=== PATIENT | female | born 1940 | race Caucasian/White ===

== ENCOUNTER → 2020-04-23 | Outpatient (CLI) | payer MEDICARE | LOC: CARD 14:01 | PROVIDERS: ATTEND Internal Medicine | DX: I50.9 Heart failure, unspecified (principal); I05.8 Other rheumatic mitral valve diseases; R60.9 Edema, unspecified | CPT/HCPCS: 93306 ==

== ENCOUNTER 2020-04-26 13:56 | Outpatient (RCR) | payer MEDICARE | END 2020-04-30 13:00 | disposition home or self-care (01) | PROVIDERS: ATTEND Internal Medicine | DX: R26.81 Unsteadiness on feet (principal); Z87.820 Personal history of traumatic brain injury ==

== ENCOUNTER 2020-05-03 12:32 | Outpatient (RCR) | payer MEDICARE | END 2020-06-12 09:31 | disposition home or self-care (01) | PROVIDERS: ATTEND Internal Medicine | DX: R26.81 Unsteadiness on feet (principal); Z87.820 Personal history of traumatic brain injury ==

== ENCOUNTER → 2020-10-15 | Outpatient (CLI) | payer MEDICARE | LOC: RAD 10:00 | PROVIDERS: ATTEND Internal Medicine | DX: Z12.31 Encounter for screening mammogram for malignant neoplasm of breast (principal) | CPT/HCPCS: 77063; 77067 ==

== ENCOUNTER 2021-03-14 11:15 | Outpatient (RCR) | payer MEDICARE | END 2021-03-14 12:32 | disposition home or self-care (01) | PROVIDERS: ATTEND Internal Medicine | DX: I89.0 Lymphedema, not elsewhere classified (principal); W19.XXXS Unspecified fall, sequela ==

== ENCOUNTER 2021-09-02 05:35 | Outpatient (CLI) | payer MEDICARE ==
[~2021-09-02] VITALS: Ht 157 cm
[2021-09-03] MEDS ORDERED: GLIM1TAB4 PO (17:07)
[2021-09-03] MEDS ORDERED: OMEG-154 PO (17:07)
[2021-09-03] MEDS ORDERED: MECL-149 PO (17:07)
[2021-09-03] MEDS ORDERED: MEMA10TA57 PO (17:07)
[2021-09-03] MEDS ORDERED: METF500S5 PO (17:07)
[2021-09-03] MEDS ORDERED: LISI1TAB46 PO (17:07)
[2021-09-03] MEDS ORDERED: FLUT9.9S NS (17:07)
[2021-09-03] MEDS ORDERED: DIPH25CA48 PO (17:07)
[2021-09-03] MEDS ORDERED: ASPI-999 PO (17:07)
[2021-09-03] MEDS ORDERED: CALC-774 PO (17:07)
== END 2021-09-10 13:55 | disposition home or self-care (01) ==
LOC: PREOP 05:35
PROVIDERS: ATTEND Specialist
DX: Z01.818 Encounter for other preprocedural examination (principal); H25.12 Age-related nuclear cataract, left eye

== ENCOUNTER 2021-09-09 07:06 | Day surgery (SDC) | payer MEDICARE ==
[~2021-09-09] VITALS: Ht 156 cm; Wt 95.6 kg
[~2021-09-09 07:06] MED LIST: ASPI-999 PO; CALC-774 PO; DIPH25CA48 PO; FLUT9.9S NS; GLIM1TAB4 PO; LISI1TAB46 PO; MECL-149 PO; MEMA10TA57 PO; METF500S5 PO; OMEG-154 PO
--- NOTE | 2021-09-09 07:26 | Ophthalmologist Pre-Op Note ---
Pre-Operative Progress Note H&P Reviewed The H&P was reviewed, patient examined and no changes noted. Date H&P Reviewed: September 09, 2021 Time H&P Reviewed: 07:26 Pre-Op Dx Cataract, Left Eye WILD ARANGO MD September 09, 2021 07:26
[2021-09-09] MEDS ORDERED: MIDAZOLAM 2 MG/2 ML (VERSED) VIAL ONE (07:42)
[2021-09-09] MEDS ORDERED: TIMOLOL MALEATE 0.5% 5 ML (TIMOPTIC) BTL OU PRN (08:15)
[2021-09-09] MEDS ORDERED: POVIDONE (BETADINE) OPHTH SOLN 5% 30 ML OP ONE (08:15)
[2021-09-09] MEDS ORDERED: MOXIFLOXACIN OPHTH SOLN 5 MG/ML 0.3 ML SYRINGE OP ONE (08:15)
[2021-09-09] MEDS ORDERED: LIDOCAINE PF 1% 2 ML VIAL IR PRN (08:15)
[2021-09-09] MEDS: TETRACAINE 0.5% OPHTH SOLN 4 ML BTL (SINGLE DOSE ONLY) OU PRN ×4 (08:27→08:50)
[2021-09-09 08:31] VITALS: BP 185/98
[2021-09-09] MEDS: TROPICAMIDE 1% OPH SOLN (MYDRIACYL) 15 ML BTL OP SCH ×3 (08:36→08:51)
[2021-09-09] MEDS: PHENYLEPHRINE 10% OPHTH (NEO-SYN) 5 ML BTL OU SCH ×3 (08:36→08:51)
--- NOTE | 2021-09-09 09:24 | Ophthalmology Operative Report ---
Cataract removal/placement IOL PREOPERATIVE DIAGNOSIS: Cataract Left Eye POSTOPERATIVE DIAGNOSIS: Cataract Left Eye PROCEDURE: Cataract removal and placement of posterior chamber implant, left eye SURGEON: Roderick Arango ANESTHESIA: Topical with sedation COMPLICATIONS: None ESTIMATED BLOOD LOSS: Minimal DESCRIPTION OF PROCEDURE: After proper informed consent was obtained, the patient, a 81 female, was taken to the Operating Room and the left eye was anesthetized with tetracaine. The left eye was then prepped and draped in the usual manner. A wire lid speculum was placed. A paracentesis was made at the left hand position. Preservative free lidocaine was injected into the anterior chamber followed by viscoelastic. A clear corneal incision was made in the temporal position. A capsulorrhexis was preformed and the central nuclear and cortical material were removed. The posterior capsule was polished and an Pato 21.0 AU00T0 was placed into the capsular bag. The residual viscoelastic was aspirated and balanced saline solution was injected into the anterior chamber. Moxifloxacin was injected into the anterior chamber. The wound was checked and found to be water tight. The patient tolerated the procedure well without complications. RODERICK ARANGO MD September 09, 2021 09:24
[2021-09-09 09:29] VITALS: BP 182/94
--- NOTE | 2021-09-09 13:38 | Anesthesia-General Post-Op ---
MAC Patient Condition Mental Status/LOC: Same as Preop Cardiovascular: Satisfactory Nausea/Vomiting: Absent Respiratory: Satisfactory Pain: Controlled Complications: Absent Post Op Complications Complications None Follow Up Care/Instructions Patient Instructions None needed. Anesthesiology Discharge Order Discharge Order Patient is doing well, no complaints, stable vital signs, no apparent adverse anesthesia problems. No complications reported per nursing. OLEGARIO DELVALLE CRNA September 09, 2021 13:38
== END 2021-09-09 09:30 | disposition home or self-care (01) ==
LOC: SDC 07:06
PROVIDERS: ATTEND Specialist
DX: H25.9 Unspecified age-related cataract (principal); E11.36 Type 2 diabetes mellitus with diabetic cataract; Z87.891 Personal history of nicotine dependence; Z79.84 Long term (current) use of oral hypoglycemic drugs; Z79.82 Long term (current) use of aspirin
CPT/HCPCS: 66984; 82947; V2632

== ENCOUNTER 2021-09-13 06:54 | Day surgery (SDC) | payer MEDICARE ==
[~2021-09-13] VITALS: Ht 157 cm; Wt 95.6 kg
[2021-09-13] MEDS: TETRACAINE 0.5% OPHTH SOLN 4 ML BTL (SINGLE DOSE ONLY) OU PRN ×4 (06:59→07:16)
[2021-09-13] MEDS ORDERED: TIMOLOL MALEATE 0.5% 5 ML (TIMOPTIC) BTL OU PRN (07:00)
[2021-09-13] MEDS ORDERED: POVIDONE (BETADINE) OPHTH SOLN 5% 30 ML OP ONE (07:00)
[2021-09-13] MEDS ORDERED: MOXIFLOXACIN OPHTH SOLN 5 MG/ML 0.3 ML SYRINGE OP ONE (07:00)
[2021-09-13] MEDS ORDERED: LIDOCAINE PF 1% 2 ML VIAL IR PRN (07:00)
[2021-09-13] MEDS: TROPICAMIDE 1% OPH SOLN (MYDRIACYL) 15 ML BTL OP SCH ×3 (07:05→07:16)
[2021-09-13] MEDS: PHENYLEPHRINE 10% OPHTH (NEO-SYN) 5 ML BTL OU SCH ×3 (07:05→07:16)
[2021-09-13 07:07] VITALS: BP 185/86
[2021-09-13] MEDS ORDERED: MIDAZOLAM 2 MG/2 ML (VERSED) VIAL ONE (07:55)
--- NOTE | 2021-09-13 08:08 | Ophthalmologist Pre-Op Note ---
Pre-Operative Progress Note H&P Reviewed The H&P was reviewed, patient examined and no changes noted. Date H&P Reviewed: September 13, 2021 Time H&P Reviewed: 08:08 Pre-Op Dx Cataract, Right Eye WILD ARANGO MD September 13, 2021 08:08
--- NOTE | 2021-09-13 08:33 | Ophthalmology Operative Report ---
Cataract removal/placement IOL PREOPERATIVE DIAGNOSIS: Cataract Right Eye POSTOPERATIVE DIAGNOSIS: Cataract Right Eye PROCEDURE: Cataract removal and placement of posterior chamber implant, right eye SURGEON: Roderick Arango ANESTHESIA: Topical with sedation COMPLICATIONS: None ESTIMATED BLOOD LOSS: Minimal DESCRIPTION OF PROCEDURE: After proper informed consent was obtained, the patient, a 81 female, was taken to the Operating Room and the right eye was anesthetized with tetracaine. The right eye was then prepped and draped in the usual manner. A wire lid speculum was placed. A paracentesis was made at the left hand position. Preservative free lidocaine was injected into the anterior chamber followed by viscoelastic. A clear corneal incision was made in the temporal position. A capsulorrhexis was preformed and the central nuclear and cortical material were removed. The posterior capsule was polished and Pato 21.5 AU00T0 IOL was placed into the capsular bag. The residual viscoelastic was aspirated and balanced saline solution was injected into the anterior chamber. Moxifloxacin was injected into the anterior chamber. The wound was checked and found to be water tight. The patient tolerated the procedure well without complications. RODERICK ARANGO MD September 13, 2021 08:33
[2021-09-13 08:36] VITALS: BP 164/82
--- NOTE | 2021-09-13 13:46 | Anesthesia-General Post-Op ---
MAC Patient Condition Mental Status/LOC: Same as Preop Cardiovascular: Satisfactory Nausea/Vomiting: Absent Respiratory: Satisfactory Pain: Controlled Complications: Absent Post Op Complications Complications None Follow Up Care/Instructions Patient Instructions None needed. Anesthesiology Discharge Order Discharge Order Patient is doing well, no complaints, stable vital signs, no apparent adverse anesthesia problems. No complications reported per nursing. HARMAN FLORES CRNA September 13, 2021 13:46
== END 2021-09-13 08:38 | disposition home or self-care (01) ==
LOC: SDC 06:54
PROVIDERS: ATTEND Specialist
DX: E11.36 Type 2 diabetes mellitus with diabetic cataract (principal); H25.9 Unspecified age-related cataract; Z87.891 Personal history of nicotine dependence; E66.9 Obesity, unspecified; Z68.38 Body mass index [BMI] 38.0-38.9, adult; Z79.84 Long term (current) use of oral hypoglycemic drugs; Z79.82 Long term (current) use of aspirin
CPT/HCPCS: 66984; 82947; V2632

== ENCOUNTER → 2021-10-16 | Outpatient (CLI) | payer MEDICARE ==
--- NOTE | 2021-10-16 12:54 | Diagnostic Imaging Report ---
INDICATION: Routine screening. COMPARISON: 10/15/2020 and 10/13/2019. TECHNIQUE: 2D and 3D bilateral screening mammography was performed with CAD. FINDINGS: Both breasts are heterogeneously dense, limiting the sensitivity of mammography. There are benign calcifications scattered throughout both breasts. No dominant mass or malignant-appearing microcalcifications are identified. The axillae are unremarkable. IMPRESSION: No mammographic features suspicious for malignancy are identified. ACR BI-RADS Category 2: Benign findings. Result letter will be mailed to the patient. Note: At least 10% of breast cancer is not imaged by mammography. Dictated by: Dictated on workstation # [id number]
== END ==
LOC: RAD 11:30
PROVIDERS: ATTEND Internal Medicine
DX: Z12.31 Encounter for screening mammogram for malignant neoplasm of breast (principal)
CPT/HCPCS: 77063; 77067

== ENCOUNTER → 2021-11-19 | Outpatient (CLI) | payer MEDICARE ==
[~2021-11-19] MED LIST changes: +CATHETER FLUSH 10 ML SYR IV PRN; +HOLD METFORMIN - RECEIVED CONTRAST 20 ML VIAL IV SCH; +IOHEXOL 350 MG/ML 100 ML (OMNIPAQUE 350) VIAL IV ONE; +NS 100 ML (IVPB) BAG IV ONE
--- NOTE | 2021-11-19 12:21 | Diagnostic Imaging Report ---
PROCEDURE: CT abdomen and pelvis with contrast. TECHNIQUE: Multiple contiguous axial images were obtained through the abdomen and pelvis after administration of intravenous contrast. Auto Exposure Controls were utilized during the CT exam to meet ALARA standards for radiation dose reduction. All CT scans use one or more of the following dose optimizing techniques: Automated exposure control, MA and/or KvP adjustment based on patient size and exam type or iterative reconstruction. INDICATION: Abdominal pain, left lower quadrant pain, history of diverticulitis. COMPARISON: No priors. FINDINGS: Liver's density is consistent with fatty infiltration. The gallbladder is surgically absent. No pathological ductal dilatation. The pancreas is nonfocal and nonacute. Spleen and adrenals are unremarkable. There are extensive aortoiliac and mesenteric atherosclerotic vascular calcifications. No obstructing thrombus or aneurysm. There is liquid stool throughout the colon which was nondistended. This is presumed to reflect a hypermotile or diarrheal state. There is, however, no diverticulitis or focal colitis. The unobstructed small bowel appeared unremarkable. There are no findings of appendicitis. There is no pneumatosis. There is no free gas. The uterus and adnexa are unremarkable. The base of the bladder extends below the pelvic floor consistent with cystocele. No evidence for urinary tract obstruction or bladder wall thickening. There does appear to be a mild rectocele without obstruction. IMPRESSION: 1. Liquid stool in the colon; correlate for diarrheal state. No segmental large or small bowel wall thickening, and no diverticulitis. No obstruction or perforation. 2. Some pelvic floor incompetency with rectocele and cystocele without obstruction or perforation. 3. Nonaneurysmal atherosclerosis without findings of acute end organ ischemia. 4. Fatty liver with nonacute pancreas. No biliary dilatation. Dictated by: Dictated on workstation # [id number]
== END ==
LOC: RAD 10:14
PROVIDERS: ATTEND Internal Medicine
DX: K76.0 Fatty (change of) liver, not elsewhere classified (principal); N81.6 Rectocele; N81.10 Cystocele, unspecified
CPT/HCPCS: 74177

== ENCOUNTER 2021-11-25 18:58 | Observation (INO) | payer MEDICARE ==
[~2021-11-25] VITALS: Ht 157.5 cm; Wt 94.2 kg
[~2021-11-25 18:58] MED LIST changes: -CATHETER FLUSH 10 ML SYR IV PRN; -HOLD METFORMIN - RECEIVED CONTRAST 20 ML VIAL IV SCH; -IOHEXOL 350 MG/ML 100 ML (OMNIPAQUE 350) VIAL IV ONE; -NS 100 ML (IVPB) BAG IV ONE
[2021-11-25] MEDS ORDERED: ONDANSETRON 4 MG (ZOFRAN) ORAL DISSOLVE TAB PO PRN (19:15)
[2021-11-25] MEDS ORDERED: ANTACID SUSP 30 ML UDC (MYLANTA) PO PRN (19:15)
[2021-11-25] MEDS ORDERED: MELATONIN 3 MG TABLET PO PRN (19:15)
[2021-11-25] MEDS ORDERED: diphenhydrAMINE 25 MG TAB (BENADRYL) PO PRN (19:15)
[2021-11-25] MEDS ORDERED: LACTULOSE SYRUP 10GM/15ML (ENULOSE) 30ML UDC PO PRN (19:15)
[2021-11-25] MEDS ORDERED: CALCIUM CARBONATE 500 MG (TUMS) TAB.CHEW PO PRN (19:15)
[2021-11-25] MEDS ORDERED: diphenhydrAMINE 50 MG/ML INJ (BENADRYL) IVP PRN (19:15)
[2021-11-25] MEDS ORDERED: ONDANSETRON 4 MG/2 ML (SDV) Z0FRAN IV PRN (19:15)
[2021-11-25] MEDS ORDERED: polyethylene glycoL POWDER 17 GM (MIRALAX) PACK PO PRN (19:15)
[2021-11-25] MEDS ORDERED: MILK OF MAGNESIA 400 MG/5 ML 30 ML UDC PO PRN (19:15)
[2021-11-25] MEDS ORDERED: ACETAMINOPHEN 325 MG TABLET PO PRN (19:15)
[2021-11-25] MEDS ORDERED: BISACODYL 10 MG SUPP (DULCOLAX) PR PRN (19:15)
[2021-11-25 19:54] LABS: BASOPHILS # (AUTO) 0.1 10^3/uL (0.0-0.1); BASOPHILS % (AUTO) 1 % (0-10); EOSINOPHILS # (AUTO) 0.2 10^3/uL (0.0-0.3); EOSINOPHILS % (AUTO) 3 % (0-10); HEMATOCRIT 38 % (35-52); HEMOGLOBIN 12.8 g/dL (11.5-16.0); LYMPHOCYTES # (AUTO) 1.8 10^3/uL (1.0-4.0); LYMPHOCYTES % (AUTO) 25 % (12-44); MEAN CORPUSCULAR HEMOGLOBIN 27 pg (25-34); MEAN CORPUSCULAR HGB CONC 33 g/dL (32-36); MEAN CORPUSCULAR VOLUME 82 fL (80-99); MEAN PLATELET VOLUME 8.4 fL (9.0-12.2); MONOCYTES # (AUTO) 0.6 10^3/uL (0.0-1.0); MONOCYTES % (AUTO) 8 % (0-12); NEUTROPHILS # (AUTO) 4.5 10^3/uL (1.8-7.8); NEUTROPHILS % (AUTO) 63 % (42-75); PLATELET COUNT 264 10^3/uL (130-400); WHITE BLOOD COUNT 7.2 10^3/uL (4.3-11.0)
[2021-11-25 20:07] VITALS: BP 174/75
[2021-11-25 20:27] LABS: ALANINE AMINOTRANSFERASE 20 U/L (0-55); ALKALINE PHOSPHATASE 60 U/L (40-136); BILIRUBIN,TOTAL 0.2 MG/DL (0.1-1.0); BUN/CREATININE RATIO 28; CALCIUM 9.8 MG/DL (8.5-10.1); CARBON DIOXIDE 23 MMOL/L (21-32); CHLORIDE 99 MMOL/L (98-107); CREATININE SERUM 0.89 MG/DL (0.60-1.30); GFR ESTIMATED 66; GLUCOSE 183 MG/DL (70-105); POTASSIUM 4.6 MMOL/L (3.6-5.0); SODIUM 133 MMOL/L (135-145); TOTAL PROTEIN 6.4 GM/DL (6.4-8.2)
[2021-11-25] MEDS: SENNOSIDES 8.6 MG (SENOKOT) TAB PO SCH (20:40)
[2021-11-25] MEDS: DOCUSATE SODIUM 100 MG (COLACE) CAP PO SCH (20:40)
--- NOTE | 2021-11-25 21:34 | Diagnostic Imaging Report ---
INDICATION: Abdominal pain. CORRELATION: CT abdomen and pelvis 11/19/2021. FINDINGS: There is a dense calcified granuloma within the mid left lung. The lungs demonstrate no findings of pneumonia or of an effusion. There is no pneumothorax. Heart size normal. Pulmonary vascularity is normal. There are surgical clips within the right upper quadrant from cholecystectomy. A few air fluid levels on the upright view but no significant small bowel dilation. There appears to be moderate stool within the right colon. IMPRESSION: 1. No evidence of an acute cardiopulmonary process. 2. There is moderate stool within the right colon. There are few air-fluid levels on the upright view suggesting fluid-filled loops of small bowel. There is however no evidence of small bowel dilation to suggest obstruction. 3. No findings of free air. Dictated by: Dictated on workstation # [id number]
[2021-11-25 22:04] LABS: BILIRUBIN,URINE NEGATIVE (NEGATIVE); CLARITY,URINE CLEAR; COLOR,URINE YELLOW; GLUCOSE, URINE (UA) TRACE (NEGATIVE); KETONES,URINE NEGATIVE (NEGATIVE); LEUKOCYTE ESTERASE ,URINE TRACE (NEGATIVE); NITRITE,URINE NEGATIVE (NEGATIVE); PH,URINE 5.5 (5-9); PROTEIN,URINE NEGATIVE (NEGATIVE)
--- NOTE | 2021-11-25 22:09 | Diagnostic Imaging Report ---
PROCEDURE: CT head without contrast. TECHNIQUE: Multiple contiguous axial images were obtained through the brain without the use of intravenous contrast. Auto Exposure Controls were utilized during the CT exam to meet ALARA standards for radiation dose reduction. INDICATION: Weakness. COMPARISON: No comparison is available. FINDINGS: There is advanced global volume loss. There is bifrontal and anterior temporal encephalomalacia which suggests a sequela of a prior closed head injury. There are no findings of acute intracranial hemorrhage. There is no intracranial mass effect or shift. There is no hydrocephalus. There is no abnormal extra-axial fluid collection. The basilar cisterns appear patent. There is no territorial loss of wilcox-white differentiation to suggest acute ischemia. The mastoid air cells are clear. The paranasal sinuses are clear other than minimal fluid in the left sphenoid sinus. The orbital contents are unremarkable. There is no acute calvarial abnormality. IMPRESSION: 1. Advanced volume loss with bifrontal and anterior temporal encephalomalacia. This pattern suggests sequela of a prior closed head injury. 2. No CT findings of a new or acute intracranial abnormality. Dictated by: Dictated on workstation # [id number]
[2021-11-25 22:13] LABS: BACTERIA,URINE LARGE /HPF
[2021-11-25] MEDS: inSUlin ASPART (NovoLOG) 1 UNIT/0.01 ML (CHARGE PER UNIT) SC SCH (23:07)
[2021-11-25] MEDS: ENOXAPARIN 40 MG/0.4 ML (LOVENOX) SYR SC SCH (23:07)
[2021-11-26] VITALS (7 sets, daily range): BP systolic 134–145; BP diastolic 63–83
[2021-11-26] MEDS: inSUlin ASPART (NovoLOG) 1 UNIT/0.01 ML (CHARGE PER UNIT) SC SCH ×4 (06:32→20:34)
[2021-11-26 06:45] LABS: BASOPHILS # (AUTO) 0.1 10^3/uL (0.0-0.1); BASOPHILS % (AUTO) 1 % (0-10); EOSINOPHILS # (AUTO) 0.2 10^3/uL (0.0-0.3); EOSINOPHILS % (AUTO) 3 % (0-10); HEMATOCRIT 34 % (35-52); HEMOGLOBIN 11.3 g/dL (11.5-16.0); LYMPHOCYTES # (AUTO) 1.5 10^3/uL (1.0-4.0); LYMPHOCYTES % (AUTO) 26 % (12-44); MEAN CORPUSCULAR HEMOGLOBIN 27 pg (25-34); MEAN CORPUSCULAR HGB CONC 33 g/dL (32-36); MEAN CORPUSCULAR VOLUME 82 fL (80-99); MEAN PLATELET VOLUME 9.1 fL (9.0-12.2); MONOCYTES # (AUTO) 0.5 10^3/uL (0.0-1.0); MONOCYTES % (AUTO) 9 % (0-12); NEUTROPHILS # (AUTO) 3.4 10^3/uL (1.8-7.8); NEUTROPHILS % (AUTO) 60 % (42-75); PLATELET COUNT 258 10^3/uL (130-400); WHITE BLOOD COUNT 5.6 10^3/uL (4.3-11.0)
[2021-11-26 06:54] LABS: ALBUMIN 3.5 GM/DL (3.2-4.5)
[2021-11-26 06:55] LABS: POTASSIUM 4.3 MMOL/L (3.6-5.0)
[2021-11-26 06:56] LABS: CALCIUM 9.2 MG/DL (8.5-10.1)
[2021-11-26 06:57] LABS: TOTAL PROTEIN 5.7 GM/DL (6.4-8.2)
[2021-11-26 06:59] LABS: BILIRUBIN,TOTAL 0.2 MG/DL (0.1-1.0)
[2021-11-26 07:01] LABS: CREATININE SERUM 0.71 MG/DL (0.60-1.30)
[2021-11-26] MEDS: SENNOSIDES 8.6 MG (SENOKOT) TAB PO SCH ×2 (07:50→20:34)
[2021-11-26] MEDS: DOCUSATE SODIUM 100 MG (COLACE) CAP PO SCH ×2 (07:50→20:34)
--- NOTE | 2021-11-26 09:40 | Physical Therapy Evaluation ---
PT Evaluation-General Medical Diagnosis Admission Date Nov 25, 2021 at 18:58 Medical Diagnosis: Weakness, Diarrhea Onset Date: Nov 25, 2021 Therapy Diagnosis Therapy Diagnosis: Gait deficit Precautions Precautions/Isolations: Fall Prevention, Standard Precautions Weight Bear Status Right Lower Extremity: Right Full Weight Bearing Left Lower Extremity: Left Full Weight Bearing Referral Physician: Dr. Acosta Reason for Referral: Evaluation/Treatment, Strengthening Medical History Reviewed History: Yes Social History Home: Single Level Current Living Status: Spouse Entry Into Home: Stairs With Railing PT Steps Into Home: 3 Prior Prior Level of Function SCALE: Activities may be completed with or without assistive devices. 1-Rezvrgqsgz-rqgxhfy completes the activity by him/herself with no assistance from a helper. 5-Set-up or Clean-up Assistance-helper sets up or cleans up; patient completes activity. [place] assists only prior to or following the activity. 4-Supervision or Touching Assistance-helper provides verbal cues and/or touching/steadying and/or contact guard assistance as patient completes activity. Assistance may be provided throughout the activity or intermittently. 3-Partial/Moderate Assistance-helper does LESS THAN HALF the effort. [place] lifts, holds or supports trunk or limbs, but provides less than half the effort. 2-Substantial/Maximal Assistance-helper does MORE THAN HALF the effort. [place] lifts or holds trunk or limbs and provides more than half the effort. 1-Laxvcwvev-ijvetx does ALL the effort. Patient does none of the effort to complete the activity. Or, the assistance of 2 or more helpers is required for the patient to complete the activity. If activity was not attempted, code reason: 7-Patient Refused. 9-Not Applicable-not attempted and the patient did not perform the activity before the current illness, exacerbation or injury. 10-Not Attempted due to Environmental Limitations-(lack of equipment, weather restraints, etc.). 88-Not Attempted due to Medical Conditions or Safety Concerns. Bed Mobility: 6 Transfers (B,C,W/C): 6 Gait: 6 Stairs: 6 Indoor Mobility (Ambulation): Independent Stairs: Independent Prior Devices Use: Walker PT Evaluation-Current Subjective Patient lying supine in bed upon PT arrival, agreeable to treatment. Patient rates pain currently at 0/10 Objective Patient Orientation: Person, Place, Time, Situation Attachments: IV ROM/Strength ROM Lower Extremities WFLs bilaterally all planes Strength Lower Extremities 3+/5 bilaterally all planes Sensory Vision: Functional Hearing: Functional Sensation Right Lower Extremit: Intact Sensation Left Lower Extremity: Intact Transfers Roll Left to Right (QC): 3 Sit to Lying (QC): 3 Lying to Sitting/Side of Bed(Q: 3 Sit to Stand (QC): 3 Chair/Nza-es-Jbnny Xfer(QC): 3 Gait Does the Patient Walk?: Yes Mode of Locomotion: Walk Anticipated Mode of Locomotion: Walk Walk 10 feet (QC): 4 Walk 50 ft with 2 Turns(QC): 4 Distance: 80 Gait Assistive Device: FWW Balance Sitting Static: Normal Sitting Dynamic: Normal Standing Static: Fair Standing Dynamic: Fair Assessment/Needs Patient tolerated treatment well. Demonstrates min a for all bed mobility and transfers, CGA for gait. Patient ambulates 40 feet with FWW, with CGA and verbal cues for safety, progression, balance and conservation of energy. Patient ambulates with fair overall gait pattern however fatigues quickly and requests return to room. Patient in bed post treatment with all needs met, nursing notified, call light in hand and family in the room. Rehab Potential: Good PT Usp Goals Usp Goals PT Certified Marine Mechanic Goals Time Frame: Dec 06, 2021 Roll Left & Right (QC): 6 Sit to Lying (QC): 6 Lying-Sitting on Side/Bed(QC): 6 Sit to Stand (QC): 6 Chair/Kul-rh-Whnnq Xfer(QC): 6 Toilet Transfer (QC): 6 Does the Patient Walk: Yes Walk 10 feet (QC): 6 Walk 50ft with 2 Turns (QC): 6 Walk 150 ft (QC): 6 1 Step (curb) (QC): 4 4 Steps (QC): 4 12 Steps (QC): 4 PT Plan Problem List Problem List: Activity Tolerance, Functional Strength, Safety, Balance, Gait, Transfer, Bed Mobility, ROM Treatment/Plan Treatment Plan: Continue Plan of Care Treatment Plan: Bed Mobility, Education, Functional Activity Pat, Functional Strength, Group Therapy, Gait, Safety, Therapeutic Exercise, Transfers Treatment Duration: Dec 21, 2021 Frequency: 6 times per week Estimated Hrs Per Day: .25 hour per day Patient and/or Family Agrees t: Yes Safety Risks/Education Patient Education: Gait Training, Transfer Techniques Teaching Recipient: Patient, Family Teaching Methods: Demonstration, Discussion Response to Teaching: Verbalize Understanding, Return Demonstration Time/GCodes Time In: 905 Time Out: 930 Total Billed Treatment Time: 25 Total Billed Treatment Visit, mikayla ATKINSON JOHN A PT Nov 26, 2021 09:40
[2021-11-26] MEDS: MENTHOL/ZINC OXIDE (CALMOSEPTINE) 113 GM TUBE TOP SCH ×2 (10:14→20:37)
[2021-11-26] MEDS ORDERED: ASPI-1238 PO (10:34)
[2021-11-26] MEDS ORDERED: FLUT9.9S NSEACH (10:34)
[2021-11-26] MEDS ORDERED: METF-399 PO (10:34)
[2021-11-26] MEDS ORDERED: CALC600T80 PO (10:34)
[2021-11-26] MEDS ORDERED: FLUTICASONE NASAL SPRAY (FLONASE) 16 GM BTL NS PRN (11:15)
--- NOTE | 2021-11-26 11:32 | Occupational Therapy Eval ---
OT Evaluation-General/PLF Medical Diagnosis Admission Date Nov 25, 2021 at 18:58 Medical Diagnosis: Weakness, Diarrhea Onset Date: Nov 25, 2021 Therapy Diagnosis Therapy Diagnosis: reduced strength/endurance Precautions Precautions/Isolations: Fall Prevention, Standard Precautions Referral Physician: Dr. Acosta Referral Reason: Evaluation/Treatment Medical History Current History Per RN and patient, pt came in with weakness and diarrhea. Patient lives with spouse in a single story home. Per patient's daughter, her dad (pt's spouse) does a lot for the patient. Spouse assists with bathing, donning/doffing footwear, "sometimes" with threading feet into pants, and all IADLs except pt folds laundry. Pt uses a walker at baseline. Social History Home: Single Level Current Living Status: Spouse Entry Into Home: Stairs With Railing Steps Into Home: 3 ADL-Prior Level of Function SCALE: Activities may be completed with or without assistive devices. 1-Xzhjfxzjws-efobrdu completes the activity by him/herself with no assistance from a helper. 5-Set-up or Clean-up Assistance-helper sets up or cleans up; patient completes activity. Irene assists only prior to or following the activity. 4-Supervision or Touching Assistance-helper provides verbal cues and/or touching/steadying and/or contact guard assistance as patient completes activity. Assistance may be provided throughout the activity or intermittently. 3-Partial/Moderate Assistance-helper does LESS THAN HALF the effort. Irene lifts, holds or supports trunk or limbs, but provides less than half the effort. 2-Substantial/Maximal Assistance-helper does MORE THAN HALF the effort. Irene lifts or holds trunk or limbs and provides more than half the effort. 0-Hhtuvpoox-ekjyeo does ALL the effort. Patient does none of the effort to complete the activity. Or, the assistance of 2 or more helpers is required for the patient to complete the activity. If activity was not attempted, code reason: 7-Patient Refused. 9-Not Applicable-not attempted and the patient did not perform the activity before the current illness, exacerbation or injury. 10-Not Attempted due to Environmental Limitations-(lack of equipment, weather restraints, etc.). 88-Not Attempted due to Medical Conditions or Safety Concerns. Self Care: Needed Some Help Functional Cognition: Needed Some Help DME/Equipment: Bath Chair, Grab Bars, Shower Drive Self: No OT Current Status Subjective Pt denies pain, reports feeling a little better than when admitted. Appearance Pt returned to sitting in recliner, daughter present in room at therapy departure. Mental Status/Objective Patient Orientation: Person, Place, Situation Attachments: IV, Telemetry Current Glasses/Contacts: Yes Hearing Aids: No Dentures/Partials: No Hand Dominance: Right Upper Extremity ROM WFL Upper Extremity Strength RUE: grossly 3/5 LUE: grossly 3+/5 ADL-Treatment Eating (QC): 5 On/Off Footwear (QC): 1 (baseline) Toileting Hygiene (QC): 4 Pt sitting in recliner at OT arrival. Dependent to don bilateral socks, reports this is baseline. Sit<>stand: SBA. Upon standing, she reports need to have BM. She ambulated to/from bathroom with CGA and use of walker. No unsteadiness observed. She was able to lower/stand from toilet with use of grab bar and SBA- CGA. Veronica care completed in sitting with SBA, cues for thoroughness. She stood and performed clothing management with close supervision. Hand hygiene performed standing at sink with SBA. Pt does report fatigue following minimal activity. Returns to sitting in chair with SBA. Patient/family could benefit from short term OT to address AE, compensatory strategies, energy conservation, strengthening and overall endurance to improve performance/independence in adls and to reduce burden of care on family. Education OT Patient Education: Correct positioning, Energy conservation, Modified ADL techniques, Purpose of tx/functional activities, Safety issues Teaching Recipient: Patient, Family Teaching Methods: Demonstration, Discussion Response to Teaching: Verbalize Understanding, Return Demonstration, Reinforcement Needed OT Prison Goals Prison Goals Time Frame: Dec 06, 2021 Eating (QC): 5 Oral Hygiene (QC): 5 Toileting Hygiene (QC): 6 Shower/Bathe Self (QC): 4 Upper Body Dressing (QC): 5 Lower Body Dressing (QC): 3 1=Demonstrate adherence to instructed precautions during ADL tasks. 2=Patient will verbalize/demonstrate understanding of assistive devices/modifications for ADL. 3=Patient will improve strength/tolerance for activity to enable patient to perform ADL's. OT Education/Plan Problem List/Assessment Assessment: Decreased Activ Tolerance, Decreased UE Strength, Impaired Funct Balance, Impaired Self-Care Skills Discharge Recommendations Plan/Recommendations: Continue POC Therapy Discharge Recommendati: Post Acute OT (Home health pending progress) Treatment Plan/Plan of Care Treatment,Training & Education: Yes Patient would benefit from OT for education, treatment and training to promote independence in ADL's, mobility, safety and/or upper extremity function for ADL's. Plan of Care: ADL Retraining, Caregiver Training, Cognitive Retraining, Functional Mobility, Group Exercise/Act as Ind, UE Funct Exercise/Act Treatment Duration: Dec 06, 2021 Frequency: 3 times per week (3-5x/week) Estimated Hrs Per Day: .25 hour per day Agreement: Yes Rehab Potential: Good Time/GCodes Start Time: 11:07 Stop Time: 11:23 Total Time Billed (hr/min): 16 Billed Treatment Time 1 visit Dayna Leung OT Nov 26, 2021 11:32
--- NOTE | 2021-11-26 13:56 | History & Physical ---
CARMINA FRY 11/26/21 5406: History of Present Illness History of Present Illness Reason for visit/HPI Mohini Martinez is a 81y/o F w/ PMH of dementia, DM, HTN, HLD, and vertigo who is here for direct admission from clinic due to weakness. Pt reports that since November 18 she has been having LLQ abdominal pain. She states that she has also been having blood stools daily. Continuing to have abdominal pain which she rates as a 7/10. Describes the pain as sharp and intermittent. Has never had episodes like this in the past. States that she was given antibiotics for the abdominal pain and says that they did not help (she is unsure what they were). Denies any fevers or chills. Abdominal CT on 11/19 showed no diverticulosis. Has not slept well for the past 4 days and states that she has been a little weaker than normal. Date of Admission Nov 25, 2021 at 18:58 Date Seen by a Provider: Nov 26, 2021 Time Seen by a Provider: 09:39 I consulted on this patient on 11/26/21 13:50 Attending Physician Mayra Bowden DO Admitting Physician Admitting Physician: Mayra Bowden DO Attending Physician: Mayra Bowden DO Consult Allergies and Home Medications Allergies Coded Allergies: Penicillins (Unverified Allergy, Intermediate, Rash, 09/03/21) Sulfa (Sulfonamide Antibiotics) (Unverified Allergy, Intermediate, Rash, 09/03/21) Patient Home Medication List Home Medication List Reviewed: Yes Aspirin (Aspirin EC) 81 Mg Tablet.dr, 81 MG PO DAILY, (Reported) Entered as Reported by: SYLVIA PEREIRA on 11/26/21 1034 Last Action: Continued Calcium Carbonate (Calcium Carbonate) 600 Mg Calcium (1500 Mg) Tablet, 600 MG PO DAILY, (Reported) Entered as Reported by: SYLVIA PEREIRA on 11/26/21 1034 Last Action: Continued Diphenhydramine HCl (Diphenhydramine HCl) 25 Mg Capsule, 25 MG PO BID, (Reported) Entered as Reported by: ELIUD MADISON on 09/03/21 1707 Last Action: Converted Fluticasone Propionate (Flonase Allergy Relief) 50 Mcg/Actuation [place].susp, 1-2 SPRAY NSEACH DAILY PRN for CONGESTION, (Reported) Entered as Reported by: SYLVIA PEREIRA on 11/26/211033 Last Action: Converted Glimepiride (Glimepiride) 1 Mg Tablet, 1 MG PO BID, (Reported) Entered as Reported by: ELIUD MADISON on 09/03/211706 Last Action: Continued Lisinopril/Hydrochlorothiazide (Lisinopril-Hctz 20-12.5 mg Tab) 20 Mg-12.5 Mg Tablet, 1 EACH PO DAILY, (Reported) Entered as Reported by: ELIUD MADISON on 09/03/211706 Last Action: Held Meclizine HCl (Meclizine HCl) 25 Mg Tablet, 25 MG PO BID, (Reported) Entered as Reported by: ELIUD MADISON on 09/03/211706 Last Action: Continued Memantine HCl (Memantine HCl) 10 Mg Tablet, 10 MG PO BID, (Reported) Entered as Reported by: ELIUD MADISON on 09/03/211706 Last Action: Continued Metformin HCl (Metformin HCl) 1,000 Mg Tablet, 1,000 MG PO BID, (Reported) Entered as Reported by: SYLVIA PEREIRA on 11/26/211033 Last Action: Held [place]-3S/Dha/Epa/Fish Oil (Fish Oil [place]-3 Softgel) 980 Mg-253 Mg-647 Mg-1,400 Mg Capsule.dr, 1 EACH PO HS, (Reported) Entered as Reported by: ELIUD MADISON on 09/03/211706 Last Action: Converted Discontinued Medications Calcium Carbonate/Vitamin D3 (Calcium 600 + Vit D3 400 Tab) 600 Mg Calcium-10 Mcg (400 Unit) Tablet, 1 EACH PO DAILY, (Reported) Discontinued Reason: Prescription changed Entered as Reported by: ELIUD MADISON on 09/03/211706 Last Action: Reviewed Fluticasone Propionate (Flonase Allergy Relief) 50 Mcg/Actuation [place].susp, 1 SPRAY NS DAILY, (Reported) Discontinued Reason: Duplicate Order Entered as Reported by: ELIUD MADISON on 09/03/211706 Last Action: Discontinued Metformin HCl (Metformin HCl) 500 Mg/5 Ml Solution, 1,000 MG PO BID, (Reported) Discontinued Reason: Duplicate Order Entered as Reported by: ELIUD MADISON on 09/03/211706 Last Action: Discontinued Past Cgggwaf-Ccppva-Gbsxnw Hx Patient Social History Marrital Status: Employed/Student: retired Tobacco Use?: Yes Tobacco type used: Cigarettes Smoking Status: Former Smoker Substance use?: No Alcohol Use?: Yes Alcohol type: Beer Alcohol Frequency: Rarely Pt feels they are or have been: No Current Status status: No status: No Advance Directives: Yes Advance Directive Location: Home Communicates: Verbally Primary Language: Guatemalan Preferred Spoken Language: Guatemalan Is interpretation needed?: No Sensory deficits: Vision impairment Implanted or Applied Medical D: None Past Medical History Surgeries: Adenoidectomy, Gallbladder, Tonsillectomy High Cholesterol, Hypertension Traumatic Brain Injury (1963), Vertigo Review of Systems Constitutional: No chills, No fever EENTM: No blurred vision, No double vision, No eye pain Respiratory: No cough, No short of breath Cardiovascular: No chest pain, No palpitations Gastrointestinal: abdominal pain; No nausea, No vomiting; other (bloody stools) Genitourinary: No dysuria, No frequency Musculoskeletal: No back pain, No joint pain Psychiatric/Neurological: Denies Headache, Denies Numbness, Denies Paresthesia Physical Exam Vital Signs Vital Signs - First Documented 11/25/21 11/25/21 11/26/21 20:00 20:07 08:09 Temp 36.2 Pulse 95 Resp 20 B/P (MAP) 174/75 (108) Pulse Ox 98 O2 Delivery Room Air FiO2 21 Capillary Refill : Height, Weight, BMI Height: '" Weight: lbs. oz. kg; 38.29 BMI Method: General Appearance: No Apparent Distress, WD/WN HEENT: PERRL/EOMI; No Photophobia Neck: Non Tender, Supple Respiratory: Lungs Clear, Normal Breath Sounds, No Accessory Muscle Use Cardiovascular: Regular Rate, Rhythm, No Murmur, Normal Peripheral Pulses Gastrointestinal: Soft, Tenderness (LLQ) Extremity: Normal Capillary Refill, Calf Tenderness (right) Neurologic/Psychiatric: Alert; No Oriented x3 (not oriented to date) Skin: Normal Color, Warm/Dry Lymphatic: No Adenopathy Assessment/Plan Assessment and Plan Failure to thrive due to dementia -head CT done showed, according to radiology, advanced volume loss with bifrontal and anterior temporal encephalomalacia. This pattern suggests sequela of a prior closed head injury. No CT findings of a new or acute intracranial abnormality. -UA done, had large bacteria but was negative for ketones and nitrates. trace leukocyte esterase -PT evaluation ordered -dietitian consult per family request -TSH of 1.09, CRP of 1.64 -start home memantine -will continue to monitor for progress Abdominal pain -abdominal CT done on 11/19 showed, according to radiology, 1. Liquid stool in the colon; correlate for diarrheal state. No segmental large or small bowel wall thickening, and no diverticulitis. No obstruction or perforation. Some pelvic floor incompetency with rectocele and cystocele without obstruction or perforation. Nonaneurysmal atherosclerosis without findings of acute end organ ischemia. Fatty liver with nonacute pancreas. No biliary dilatation. -acute abdomen XR series showed, according to radiology, No evidence of an acute cardiopulmonary process. There is moderate stool within the right colon. There are few air-fluid levels on the upright view suggesting fluid-filled loops of small bowel. There is however no evidence of small bowel dilation to suggest obstruction. No findings of free air. -stool occult blood was positive -C.diff toxin and antigen negative -consult surgery (Dr. Parks) HTN -echocardiogram done today, awaiting final report -on lisinopril -consult to cardiology has been placed (Dr. Chavez) Diabetes mellitus type 2 -on SSI -start home glimepiride -diabetic diet Anemia -Hgb of 11.3 -iron studies ordered and results are pending. Vertigo -restart home meclizine DVT prophylaxis- lovenox Code status: DNR MAYRA BOWDEN DO 11/26/21 2100: Allergies and Home Medications Allergies Coded Allergies: Penicillins (Unverified Allergy, Intermediate, Rash, 09/03/21) Sulfa (Sulfonamide Antibiotics) (Unverified Allergy, Intermediate, Rash, 09/03/21) Patient Home Medication List Aspirin (Aspirin EC) 81 Mg Tablet., 81 MG PO DAILY, (Reported) Entered as Reported by: SYLVIA PEREIRA on 11/26/21 1034 Last Action: Continued Calcium Carbonate (Calcium Carbonate) 600 Mg Calcium (1500 Mg) Tablet, 600 MG PO DAILY, (Reported) Entered as Reported by: SYLVIA PEREIRA on 11/26/21 1034 Last Action: Continued Diphenhydramine HCl (Diphenhydramine HCl) 25 Mg Capsule, 25 MG PO BID, (Reported) Entered as Reported by: ELIUD MADISON on 09/03/211706 Last Action: Converted Fluticasone Propionate (Flonase Allergy Relief) 50 Mcg/Actuation [place].susp, 1-2 SPRAY NSEACH DAILY PRN for CONGESTION, (Reported) Entered as Reported by: SYLVIA PEREIRA on 11/26/211033 Last Action: Converted Glimepiride (Glimepiride) 1 Mg Tablet, 1 MG PO BID, (Reported) Entered as Reported by: ELIUD MADISON on 09/03/211706 Last Action: Continued Lisinopril/Hydrochlorothiazide (Lisinopril-Hctz 20-12.5 mg Tab) 20 Mg-12.5 Mg Tablet, 1 EACH PO DAILY, (Reported) Entered as Reported by: ELIUD MADISON on 09/03/211706 Last Action: Held Meclizine HCl (Meclizine HCl) 25 Mg Tablet, 25 MG PO BID, (Reported) Entered as Reported by: ELIUD MADISON on 09/03/211706 Last Action: Continued Memantine HCl (Memantine HCl) 10 Mg Tablet, 10 MG PO BID, (Reported) Entered as Reported by: ELIUD MADISON on 09/03/211706 Last Action: Continued Metformin HCl (Metformin HCl) 1,000 Mg Tablet, 1,000 MG PO BID, (Reported) Entered as Reported by: SYLVIA PEREIRA on 11/26/211033 Last Action: Held [place]-3S/Dha/Epa/Fish Oil (Fish Oil [place]-3 Softgel) 980 Mg-253 Mg-647 Mg-1,400 Mg Capsule.dr, 1 EACH PO HS, (Reported) Entered as Reported by: ELIUD MADISON on 09/03/211706 Last Action: Converted Discontinued Medications Calcium Carbonate/Vitamin D3 (Calcium 600 + Vit D3 400 Tab) 600 Mg Calcium-10 Mcg (400 Unit) Tablet, 1 EACH PO DAILY, (Reported) Discontinued Reason: Prescription changed Entered as Reported by: ELIUD MADISON on 09/03/211706 Last Action: Reviewed Fluticasone Propionate (Flonase Allergy Relief) 50 Mcg/Actuation [place].susp, 1 SPRAY NS DAILY, (Reported) Discontinued Reason: Duplicate Order Entered as Reported by: ELIUD MADISON on 09/03/211706 Last Action: Discontinued Metformin HCl (Metformin HCl) 500 Mg/5 Ml Solution, 1,000 MG PO BID, (Reported) Discontinued Reason: Duplicate Order Entered as Reported by: ELIUD MADISON on 09/03/211706 Last Action: Discontinued Assessment/Plan Assessment and Plan Problems: (1) Edema (2) Diabetes (3) Vascular dementia (4) Diarrhea (5) Weakness Admission Diagnosis Admission Status: Observation Supervisory-Addendum Brief Verification & Attestation Participated in pt care: history, MDM, physical Personally performed: exam, history, MDM, supervision of care Care discussed with: Medical Student Procedures: n/a Results interpretation: Verified all documentation Verification and Attestation of Medical Student E/M Service A medical student performed and documented this service in my presence. I reviewed and verified all information documented by the medical student and made modifications to such information, when appropriate. I personally performed the physical exam and medical decision making. Mayra Bowden, Nov 26, 2021,21:00 CARMINA FRY Nov 26, 2021 13:56 MAYRA BOWDEN DO Nov 26, 2021 21:00
--- NOTE | 2021-11-26 15:34 | Consultation-Cardiology ---
HPI-Cardiology Cardiology Consultation Date of Consultation 11/26/21 Date of Admission Time Seen by Provider: 15:27 Indication: Generalized weakness, pedal edema HPI 81-year-old lady with history of diabetes mellitus, hypertension hyperlipidemia in addition to dementia. Patient was admitted directly from Dr. Acosta's office due to increasing weakness and loss of energy. She denied any chest pain. She has been having increasing lower abdominal pain and diarrhea. Mainly left lower quadrant pain. Currently laying down comfortably in bed. No active complaint. She denied any chest pain or dyspnea Home Medications & Allergies Allergies: Coded Allergies: Penicillins (Unverified Allergy, Intermediate, Rash, 09/03/21) Sulfa (Sulfonamide Antibiotics) (Unverified Allergy, Intermediate, Rash, 09/03/21) Home Medication List Reviewed: Yes NNI-Htxgwn-Xjdsur Hx Patient Social History Marital Status: Employed/Student: retired Smoking Status: Former Smoker Have you traveled recently?: No Alcohol Use?: Yes Past Medical History Discussed below Family Medical History Family Medical Hx Noncontributory Review of Systems-General Review of Systems Constitutional: No chills, No fever; malaise, weakness EENTM: No blurred vision, No double vision, No eye pain Respiratory: No cough; dyspnea on exertion; No short of breath Cardiovascular: see HPI; No chest pain; edema; No palpitations Gastrointestinal: see HPI, abdominal pain; No nausea, No vomiting; other (bloody stools) Genitourinary: No dysuria, No frequency Musculoskeletal: see HPI; No back pain, No joint pain Skin: no symptoms reported, see HPI Psychiatric/Neurological: Denies Headache, Denies Numbness, Denies Paresthesia Reviewed Test Results Reviewed Test Results Lab Laboratory Tests Test 11/25/21 17:49 11/25/21 19:47 11/25/21 21:47 11/25/21 21:53 Range/Units Erythrocyte Sedimentation Rate 18 0-30 MM/HR White Blood Count 7.2 4.3-11.0 10^3/uL Red Blood Count 4.69 3.80-5.11 10^6/uL Hemoglobin 12.8 11.5-16.0 g/dL Hematocrit 38 35-52 % Mean Corpuscular Volume 82 80-99 fL Mean Corpuscular Hemoglobin 27 25-34 pg Mean Corpuscular Hemoglobin Concent 33 32-36 g/dL Red Cell Distribution Width 13.7 10.0-14.5 % Platelet Count 264 130-400 10^3/uL Mean Platelet Volume 8.4 L 9.0-12.2 fL Immature Granulocyte % (Auto) 0 % Neutrophils (%) (Auto) 63 42-75 % Lymphocytes (%) (Auto) 25 12-44 % Monocytes (%) (Auto) 8 0-12 % Eosinophils (%) (Auto) 3 0-10 % Basophils (%) (Auto) 1 0-10 % Neutrophils # (Auto) 4.5 1.8-7.8 10^3/uL Lymphocytes # (Auto) 1.8 1.0-4.0 10^3/uL Monocytes # (Auto) 0.6 0.0-1.0 10^3/uL Eosinophils # (Auto) 0.2 0.0-0.3 10^3/uL Basophils # (Auto) 0.1 0.0-0.1 10^3/uL Immature Granulocyte # (Auto) 0.0 0.0-0.1 10^3/uL D-Dimer 0.50 H 0.00-0.49 UG/ML Sodium Level 133 L 135-145 MMOL/L Potassium Level 4.6 3.6-5.0 MMOL/L Chloride Level 99 98-107 MMOL/L Carbon Dioxide Level 23 21-32 MMOL/L Anion Gap 11 5-14 MMOL/L Blood Urea Nitrogen 25 H 7-18 MG/DL Creatinine 0.89 0.60-1.30 MG/DL Estimat Glomerular Filtration Rate 66 BUN/Creatinine Ratio 28 Glucose Level 183 H 70-105 MG/DL Lactic Acid Level 1.13 0.50-2.00 MMOL/L Calcium Level 9.8 8.5-10.1 MG/DL Corrected Calcium 9.8 8.5-10.1 MG/DL Total Bilirubin 0.2 0.1-1.0 MG/DL Aspartate Amino Transf (AST/SGOT) 12 5-34 U/L Alanine Aminotransferase (ALT/SGPT) 20 0-55 U/L Alkaline Phosphatase 60 40-136 U/L Troponin I < 0.028 <0.028 NG/ML C-Reactive Protein High Sensitivity 1.64 H 0.00-0.50 MG/DL Total Protein 6.4 6.4-8.2 GM/DL Albumin 4.0 3.2-4.5 GM/DL Procalcitonin 0.04 <0.10 NG/ML Thyroid Stimulating Hormone (TSH) 1.09 0.35-4.94 UIU/ML Urine Color YELLOW Urine Clarity CLEAR Urine pH 5.5 5-9 Urine Specific [place] 1.015 L 1.016-1.022 Urine Protein NEGATIVE NEGATIVE Urine Glucose (UA) TRACE H NEGATIVE Urine Ketones NEGATIVE NEGATIVE Urine Nitrite NEGATIVE NEGATIVE Urine Bilirubin NEGATIVE NEGATIVE Urine Urobilinogen 0.2 < = 1.0 MG/DL Urine Leukocyte Esterase TRACE H NEGATIVE Urine RBC (Auto) NEGATIVE NEGATIVE Urine RBC NONE /HPF Urine WBC 5-10 H /HPF Urine Squamous Epithelial Cells 2-5 /HPF Urine Renal Epithelial Cells NONE /HPF Urine Crystals NONE /LPF Urine Bacteria LARGE H /HPF Urine Casts NONE /LPF Urine Mucus NEGATIVE /LPF Urine Culture Indicated YES Glucometer 278 H 70-110 MG/DL Test 11/25/21 22:08 11/26/21 05:19 11/26/21 05:44 11/26/21 08:30 Range/Units Glucometer 161 H 70-110 MG/DL White Blood Count 5.6 4.3-11.0 10^3/uL Red Blood Count 4.14 3.80-5.11 10^6/uL Hemoglobin 11.3 L 11.5-16.0 g/dL Hematocrit 34 L 35-52 % Mean Corpuscular Volume 82 80-99 fL Mean Corpuscular Hemoglobin 27 25-34 pg Mean Corpuscular Hemoglobin Concent 33 32-36 g/dL Red Cell Distribution Width 13.9 10.0-14.5 % Platelet Count 258 130-400 10^3/uL Mean Platelet Volume 9.1 9.0-12.2 fL Immature Granulocyte % (Auto) 1 % Neutrophils (%) (Auto) 60 42-75 % Lymphocytes (%) (Auto) 26 12-44 % Monocytes (%) (Auto) 9 0-12 % Eosinophils (%) (Auto) 3 0-10 % Basophils (%) (Auto) 1 0-10 % Neutrophils # (Auto) 3.4 1.8-7.8 10^3/uL Lymphocytes # (Auto) 1.5 1.0-4.0 10^3/uL Monocytes # (Auto) 0.5 0.0-1.0 10^3/uL Eosinophils # (Auto) 0.2 0.0-0.3 10^3/uL Basophils # (Auto) 0.1 0.0-0.1 10^3/uL Immature Granulocyte # (Auto) 0.0 0.0-0.1 10^3/uL Sodium Level 133 L 135-145 MMOL/L Potassium Level 4.3 3.6-5.0 MMOL/L Chloride Level 102 98-107 MMOL/L Carbon Dioxide Level 21 21-32 MMOL/L Anion Gap 10 5-14 MMOL/L Blood Urea Nitrogen 18 7-18 MG/DL Creatinine 0.71 0.60-1.30 MG/DL Estimat Glomerular Filtration Rate 86 BUN/Creatinine Ratio 25 Glucose Level 144 H 70-105 MG/DL Calcium Level 9.2 8.5-10.1 MG/DL Corrected Calcium 9.6 8.5-10.1 MG/DL Total Bilirubin 0.2 0.1-1.0 MG/DL Aspartate Amino Transf (AST/SGOT) 11 5-34 U/L Alanine Aminotransferase (ALT/SGPT) 17 0-55 U/L Alkaline Phosphatase 48 40-136 U/L Total Protein 5.7 L 6.4-8.2 GM/DL Albumin 3.5 3.2-4.5 GM/DL Stool Occult Blood Immunoassay POSITIVE H NEGATIVE Test 11/26/21 11:27 11/26/21 15:28 Range/Units Glucometer 197 H 237 H 70-110 MG/DL Physical Exam Physical Exam Vital Signs Vital Signs - First Documented 11/25/21 11/25/21 11/26/21 20:00 20:07 08:09 Temp 36.2 Pulse 95 Resp 20 B/P (MAP) 174/75 (108) Pulse Ox 98 O2 Delivery Room Air FiO2 21 Capillary Refill : Height, Weight, BMI Height: '" Weight: lbs. oz. kg; 38.29 BMI Method: General Appearance: No Apparent Distress, WD/WN Eyes: Bilateral Eye Normal Inspection, Bilateral Eye PERRL, Bilateral Eye EOMI HEENT: PERRL/EOMI; No Photophobia Neck: Non Tender, Supple Respiratory: Lungs Clear, Normal Breath Sounds, No Accessory Muscle Use Cardiovascular: Regular Rate, Rhythm, Normal Peripheral Pulses, Systolic Murmur Gastrointestinal: Soft, Tenderness (LLQ) Back: Normal Inspection, No CVA Tenderness, No Vertebral Tenderness Extremity: Normal Capillary Refill, Calf Tenderness (right) Neurologic/Psychiatric: Alert; No Oriented x3 (not oriented to date) Skin: Normal Color, Warm/Dry Lymphatic: No Adenopathy A/P-Cardiology Admission Diagnosis Generalized weakness Lower abdominal pain Peripheral edema Hypertension Assessment/Plan Generalized weakness and loss of energy. Lower abdominal pain and diarrhea, CT scan did not show any acute diverticulosis. Currently no active pain. Peripheral edema. 2D echo was done on November 26, 2021 showing ejection fraction 55%. Normal pulmonary artery pressure. No significant abnormality. Hypertension, restart home medication monitor blood pressure Diabetes mellitus, followed and managed by primary care physician MIRTA BOB MD Nov 26, 2021 15:34
[2021-11-26] MEDS ORDERED: RT-ALBUTEROL SULF 2.5 MG/3 ML PRE-MIX VIAL INH PRN (16:30)
--- NOTE | 2021-11-26 17:31 | Consultation - Surgery ---
DAVID DAVIS 11/26/21 1731: History of Present Illness History of Present Illness Patient Consulted On(jelena/time) 11/26/21 17:25 Reason for Visit: Generalized weakness, pedal edema History of Present Illness Pt is a 81 year old female with past medical history of dementia, diabetes me llitus, HTN, hyperlipidemia, and vertigo who was admitted on 11/[address] Acosta's clinic due to weakness on 11/25. Pt states that she has been experiencing LLQ abdominal pain since 11/18 and bloody stools daily since 11/15. Pt states that she has been having 10-12 bowel movements daily. Pt's abdominal pain is a sharp, with no radiation, and gets better with bowel movements. Per past notes,pt said she was given antibiotics for her symptoms but had no relief. Pt had a positive stool occult blood test on 11/26. Pt had an Abdominal CT on 11/19 that showed no diverticulosis. Pt also had an abdominal CT on 11/25 that showed no small bowel obstruction. Pt is sitting comfortably in chair and states that she currently has no abdominal pain. Pt notes that she experienced a recent fall, but the daughter could not confirm. Pt denies sweats, chills, chest pain, and shortness of breath. Allergies and Home Medications Allergies Coded Allergies: Penicillins (Unverified Allergy, Intermediate, Rash, 09/03/21) Sulfa (Sulfonamide Antibiotics) (Unverified Allergy, Intermediate, Rash, 09/03/21) Patient Home Medication List Aspirin (Aspirin EC) 81 Mg Tablet., 81 MG PO DAILY, (Reported) Entered as Reported by: SYLVIA PEREIRA on 11/26/21 1034 Last Action: Continued Calcium Carbonate (Calcium Carbonate) 600 Mg Calcium (1500 Mg) Tablet, 600 MG PO DAILY, (Reported) Entered as Reported by: SYLVIA PEREIRA on 11/26/21 1034 Last Action: Continued Diphenhydramine HCl (Diphenhydramine HCl) 25 Mg Capsule, 25 MG PO BID, (Reported) Entered as Reported by: ELIUD MADISON on 09/03/21 4355 Last Action: Converted Fluticasone Propionate (Flonase Allergy Relief) 50 Mcg/Actuation [place].susp, 1-2 SPRAY NSEACH DAILY PRN for CONGESTION, (Reported) Entered as Reported by: SYLVIA PEREIRA on 11/26/211033 Last Action: Converted Glimepiride (Glimepiride) 1 Mg Tablet, 1 MG PO BID, (Reported) Entered as Reported by: ELIUD MADISON on 09/03/211706 Last Action: Continued Lisinopril/Hydrochlorothiazide (Lisinopril-Hctz 20-12.5 mg Tab) 20 Mg-12.5 Mg Tablet, 1 EACH PO DAILY, (Reported) Entered as Reported by: ELIUD MADISON on 09/03/211706 Last Action: Held Meclizine HCl (Meclizine HCl) 25 Mg Tablet, 25 MG PO BID, (Reported) Entered as Reported by: ELIUD MADISON on 09/03/211706 Last Action: Continued Memantine HCl (Memantine HCl) 10 Mg Tablet, 10 MG PO BID, (Reported) Entered as Reported by: ELIUD MADISON on 09/03/211706 Last Action: Continued Metformin HCl (Metformin HCl) 1,000 Mg Tablet, 1,000 MG PO BID, (Reported) Entered as Reported by: SYLVIA PEREIRA on 11/26/211033 Last Action: Held [place]-3S/Dha/Epa/Fish Oil (Fish Oil [place]-3 Softgel) 980 Mg-253 Mg-647 Mg-1,400 Mg Capsule.dr, 1 EACH PO HS, (Reported) Entered as Reported by: ELIUD MADISON on 09/03/211706 Last Action: Converted Discontinued Medications Calcium Carbonate/Vitamin D3 (Calcium 600 + Vit D3 400 Tab) 600 Mg Calcium-10 Mcg (400 Unit) Tablet, 1 EACH PO DAILY, (Reported) Discontinued Reason: Prescription changed Entered as Reported by: ELIUD MADISON on 09/03/211706 Last Action: Reviewed Fluticasone Propionate (Flonase Allergy Relief) 50 Mcg/Actuation [place].susp, 1 SPRAY NS DAILY, (Reported) Discontinued Reason: Duplicate Order Entered as Reported by: ELIUD MADISON on 09/03/211706 Last Action: Discontinued Metformin HCl (Metformin HCl) 500 Mg/5 Ml Solution, 1,000 MG PO BID, (Reported) Discontinued Reason: Duplicate Order Entered as Reported by: ELIUD MADISON on 09/03/211706 Last Action: Discontinued Past Puukqrl-Ijfgkm-Yaltvc Hx Patient Social History Smoking Status: Former Smoker Type Used: Cigarettes Alcohol Use?: Yes Have you traveled recently?: No Surgeries Surgeries: Adenoidectomy, Gallbladder, Tonsillectomy Cardiovascular Cardiac Disorders: High Cholesterol, Hypertension Neurological Neurological Disorders: Traumatic Brain Injury (1964), Vertigo Review of Systems-General Constitutional: No chills, No diaphoresis; weakness EENTM: No blurred vision, No double vision Respiratory: No cough, No dyspnea on exertion Cardiovascular: No chest pain; edema (b/l LE); No palpitations Gastrointestinal: LUQ, abdominal pain (LUQ pain, sharp pain), diarrhea (10-12 stools daily since the ) Genitourinary: No dysuria, No hematuria Musculoskeletal: No gout, No neck pain Skin: No change in color, No change in hair/nails Psychiatric/Neurological: Denies Anxiety, Denies Depressed Physical Exam-General Problems Physical Exam Vital Signs Vital Signs - First Documented 11/25/21 11/25/21 11/26/21 20:00 20:07 08:09 Temp 36.2 Pulse 95 Resp 20 B/P (MAP) 174/75 (108) Pulse Ox 98 O2 Delivery Room Air FiO2 21 Capillary Refill : General Appearance: no apparent distress Gastrointestinal: soft, tenderness (sharp LUQ abd pain) Extremities: swelling (b/l LE) Data Review Labs Laboratory Tests 11/25/21 17:49: Erythrocyte Sedimentation Rate 18 11/25/21 19:47: White Blood Count 7.2, Red Blood Count 4.69, Hemoglobin 12.8, Hematocrit 38, Mean Corpuscular Volume 82, Mean Corpuscular Hemoglobin 27, Mean Corpuscular Hemoglobin Concent 33, Red Cell Distribution Width 13.7, Platelet Count 264, Mean Platelet Volume 8.4L, Immature Granulocyte % (Auto) 0, Neutrophils (%) (Auto) 63, Lymphocytes (%) (Auto) 25, Monocytes (%) (Auto) 8, Eosinophils (%) (Auto) 3, Basophils (%) (Auto) 1, Neutrophils # (Auto) 4.5, Lymphocytes # (Auto) 1.8, Monocytes # (Auto) 0.6, Eosinophils # (Auto) 0.2, Basophils # (Auto) 0.1, Immature Granulocyte # (Auto) 0.0, D-Dimer 0.50H, Sodium Level 133L, Potassium Level 4.6, Chloride Level 99, Carbon Dioxide Level 23, Anion Gap 11, Blood Urea Nitrogen 25H, Creatinine 0.89, Estimat Glomerular Filtration Rate 66, BUN/Creatinine Ratio 28, Glucose Level 183H, Lactic Acid Level 1.13, Calcium Level 9.8, Corrected Calcium 9.8, Total Bilirubin 0.2, Aspartate Amino Transf (AST/SGOT) 12, Alanine Aminotransferase (ALT/SGPT) 20, Alkaline Phosphatase 60, Troponin I < 0.028, C-Reactive Protein High Sensitivity 1.64H, Total Protein 6.4, Albumin 4.0, Procalcitonin 0.04, Thyroid Stimulating Hormone (TSH) 1.09 11/25/21 21:47: Urine Color YELLOW, Urine Clarity CLEAR, Urine pH 5.5, Urine Specific [place] 1.015L, Urine Protein NEGATIVE, Urine Glucose (UA) TRACEH, Urine Ketones NEGATIVE, Urine Nitrite NEGATIVE, Urine Bilirubin NEGATIVE, Urine Urobilinogen 0.2, Urine Leukocyte Esterase TRACEH, Urine RBC (Auto) NEGATIVE, Urine RBC NONE, Urine WBC 5-10H, Urine Squamous Epithelial Cells 2-5, Urine Renal Epithelial Cells NONE, Urine Crystals NONE, Urine Bacteria LARGEH, Urine Casts NONE, Urine Mucus NEGATIVE, Urine Culture Indicated YES 11/25/21 21:53: Glucometer 278H 11/25/21 22:08: 11/26/21 05:19: Glucometer 161H 11/26/21 05:44: White Blood Count 5.6, Red Blood Count 4.14, Hemoglobin 11.3L, Hematocrit 34L, Mean Corpuscular Volume 82, Mean Corpuscular Hemoglobin 27, Mean Corpuscular Hemoglobin Concent 33, Red Cell Distribution Width 13.9, Platelet Count 258, Mean Platelet Volume 9.1, Immature Granulocyte % (Auto) 1, Neutrophils (%) (Auto) 60, Lymphocytes (%) (Auto) 26, Monocytes (%) (Auto) 9, Eosinophils (%) (Auto) 3, Basophils (%) (Auto) 1, Neutrophils # (Auto) 3.4, Lymphocytes # (Auto) 1.5, Monocytes # (Auto) 0.5, Eosinophils # (Auto) 0.2, Basophils # (Auto) 0.1, Immature Granulocyte # (Auto) 0.0, Sodium Level 133L, Potassium Level 4.3, Chloride Level 102, Carbon Dioxide Level 21, Anion Gap 10, Blood Urea Nitrogen 18, Creatinine 0.71, Estimat Glomerular Filtration Rate 86, BUN/Creatinine Ratio 25, Glucose Level 144H, Calcium Level 9.2, Corrected Calcium 9.6, Total Bilirubin 0.2, Aspartate Amino Transf (AST/SGOT) 11, Alanine Aminotransferase (ALT/SGPT) 17, Alkaline Phosphatase 48, Total Protein 5.7L, Albumin 3.5 11/26/21 08:30: Stool Occult Blood Immunoassay POSITIVEH 11/26/21 11:27: Glucometer 197H 11/26/21 15:28: Glucometer 237H Microbiology 11/26/21 C. difficile GDH Antigen & Toxins - Final, Resulted 11/26/21 Stool Culture, Resulted Pending 11/25/21 Urine Culture - Final, Complete NO GROWTH Assessment/Plan Assessment/Plan Assessment/Plan Diarrhea - hemaoccult positive Weakness secondary to GI bleeding Follow up hemoglobin Outpatient colonoscopy C diff negative, culture pending KEERTHI ESPINOZA DO 11/26/212022: History of Present Illness History of Present Illness Date Seen by Provider: Nov 26, 2021 Time Seen by Provider: 16:00 History of Present Illness Consult requested by Dr. Acosta for occult positive stools. Patient is a 81-year-old female with recent onset of diarrhea and episode of syncope. Patient has been feeling weak and was seen in Dr. Acosta clinic yesterday and sent to hospital for further evaluation. She states she is also having some left lower quadrant abdominal pain since 11/18/2021. She has had multiple liquid stools per day up to 12/day. She has sharp pain in the left lower quadrant which does not radiate anywhere. She states the bowel movements would make it better not sure if anything makes it worse. She had a CT scan on 726 which demonstrated diverticulosis and fluid filled bowel loops of colon. Patient had C. difficile checked which was negative and stool studies pending. Allergies and Home Medications Allergies Coded Allergies: Penicillins (Unverified Allergy, Intermediate, Rash, 09/03/21) Sulfa (Sulfonamide Antibiotics) (Unverified Allergy, Intermediate, Rash, 09/03/21) Patient Home Medication List Home Medication List Reviewed: Yes Aspirin (Aspirin EC) 81 Mg Tablet., 81 MG PO DAILY, (Reported) Entered as Reported by: SYLVIA PEREIRA on 11/26/211033 Last Action: Continued Calcium Carbonate (Calcium Carbonate) 600 Mg Calcium (1500 Mg) Tablet, 600 MG PO DAILY, (Reported) Entered as Reported by: SYLVIA PEREIRA on 11/26/211033 Last Action: Continued Diphenhydramine HCl (Diphenhydramine HCl) 25 Mg Capsule, 25 MG PO BID, (Reported) Entered as Reported by: ELIUD MADISON on 09/03/211706 Last Action: Converted Fluticasone Propionate (Flonase Allergy Relief) 50 Mcg/Actuation [place].susp, 1-2 SPRAY NSEACH DAILY PRN for CONGESTION, (Reported) Entered as Reported by: SYLVIA PEREIRA on 11/26/211033 Last Action: Converted Glimepiride (Glimepiride) 1 Mg Tablet, 1 MG PO BID, (Reported) Entered as Reported by: ELIUD MADISON on 09/03/211706 Last Action: Continued Lisinopril/Hydrochlorothiazide (Lisinopril-Hctz 20-12.5 mg Tab) 20 Mg-12.5 Mg Tablet, 1 EACH PO DAILY, (Reported) Entered as Reported by: ELIUD MADISON on 09/03/211706 Last Action: Held Meclizine HCl (Meclizine HCl) 25 Mg Tablet, 25 MG PO BID, (Reported) Entered as Reported by: ELIUD MADISON on 09/03/211706 Last Action: Continued Memantine HCl (Memantine HCl) 10 Mg Tablet, 10 MG PO BID, (Reported) Entered as Reported by: ELIUD MADISON on 09/03/211706 Last Action: Continued Metformin HCl (Metformin HCl) 1,000 Mg Tablet, 1,000 MG PO BID, (Reported) Entered as Reported by: SYLVIA PEREIRA on 11/26/211033 Last Action: Held [place]-3S/Dha/Epa/Fish Oil (Fish Oil [place]-3 Softgel) 980 Mg-253 Mg-647 Mg-1,400 Mg Capsule.dr, 1 EACH PO HS, (Reported) Entered as Reported by: ELIUD MADISON on 09/03/211706 Last Action: Converted Discontinued Medications Calcium Carbonate/Vitamin D3 (Calcium 600 + Vit D3 400 Tab) 600 Mg Calcium-10 Mcg (400 Unit) Tablet, 1 EACH PO DAILY, (Reported) Discontinued Reason: Prescription changed Entered as Reported by: ELIUD MADISON on 09/03/211706 Last Action: Reviewed Fluticasone Propionate (Flonase Allergy Relief) 50 Mcg/Actuation [place].susp, 1 SPRAY NS DAILY, (Reported) Discontinued Reason: Duplicate Order Entered as Reported by: ELIUD MADISON on 09/03/211706 Last Action: Discontinued Metformin HCl (Metformin HCl) 500 Mg/5 Ml Solution, 1,000 MG PO BID, (Reported) Discontinued Reason: Duplicate Order Entered as Reported by: ELIUD MADISON on 09/03/211706 Last Action: Discontinued Past Qqpkzjw-Ihshag-Qgreop Hx Reviewed Nursing Assessment Reviewed/Agree w Nursing PMH: Yes Family Medical History Significant Family History: No Pertinent Family Hx Review of Systems-General Constitutional: No chills, No diaphoresis; weakness EENTM: No blurred vision, No double vision Respiratory: No cough, No dyspnea on exertion Cardiovascular: No chest pain; edema (b/l LE); No palpitations Gastrointestinal: LLQ, abdominal pain (LLQ), diarrhea (10-12 stools daily since the ) Genitourinary: No dysuria, No hematuria Musculoskeletal: No gout, No neck pain Skin: No change in color, No change in hair/nails Psychiatric/Neurological: Denies Anxiety, Denies Depressed, Denies Emotional Problems All Other Systems Reviewed Negative Unless Noted: Yes (Negative excepted noted.) Physical Exam-General Problems Physical Exam General Appearance: no apparent distress, obese HEENT: PERRL/EOMI, normal ENT inspection Neck: non-tender, supple Respiratory: chest non-tender, no respiratory distress, no accessory muscle use Cardiovascular: regular rate, rhythm, no JVD Gastrointestinal: non tender, soft; No tenderness Rectal: deferred Back: normal inspection, no CVA tenderness Extremities: non-tender, swelling (b/l LE) Neurologic/Psychiatric: no motor/sensory deficits, alert, normal mood/affect, oriented x 3 Skin: normal color, warm/dry Lymphatic: no adenopathy Assessment/Plan Assessment/Plan Assessment/Plan Left lower quadrant abdominal pain Diarrhea Occult positive stools Stool studies pending C. difficile was negative continue to await for stool studies. Continue with IV fluids. Diet as tolerates. Patient will need colonoscopy on outpatient basis, Continue supportive measures. Patient agrees with plan along with family. Supervisory-Addendum Brief Verification & Attestation Participated in pt care: history, MDM, physical Personally performed: exam, history, MDM, supervision of care Care discussed with: Medical Student Procedures: n/a Results interpretation: Verified all documentation Verification and Attestation of Medical Student E/M Service A medical student performed and documented this service in my presence. I reviewed and verified all information documented by the medical student and made modifications to such information, when appropriate. I personally performed the physical exam and medical decision making. Keerthi Espinoza, Nov 26, 2021,20:25 DAVID ADVIS Nov 26, 2021 17:31 KEERTHI ESPINOZA DO Nov 26, 2021 20:23
[2021-11-26] MEDS: ENOXAPARIN 40 MG/0.4 ML (LOVENOX) SYR SC SCH (18:05)
[2021-11-26] MEDS: diphenhydrAMINE 25 MG TAB (BENADRYL) PO SCH (20:32)
[2021-11-26] MEDS: GLIMEPIRIDE 1 MG (AMARYL) TAB PO SCH (20:33)
[2021-11-26] MEDS: MECLIZINE 25 MG (ANTIVERT) TAB PO SCH (20:33)
[2021-11-26] MEDS: MEMANTINE 10 MG (NAMENDA) TABLET PO SCH (20:33)
[2021-11-26] MEDS ORDERED: OMEGA 3 (FISH OIL) 1000 MG CAP PO SCH (21:00)
[2021-11-27] VITALS: BP 148/83
[2021-11-27 04:13] VITALS: BP 150/82
[2021-11-27] MEDS: inSUlin ASPART (NovoLOG) 1 UNIT/0.01 ML (CHARGE PER UNIT) SC SCH ×2 (06:40→12:08)
[2021-11-27 06:45] LABS: BASOPHILS % (AUTO) 1 % (0-10); EOSINOPHILS # (AUTO) 0.2 10^3/uL (0.0-0.3); EOSINOPHILS % (AUTO) 4 % (0-10); HEMATOCRIT 34 % (35-52); HEMOGLOBIN 11.2 g/dL (11.5-16.0); LYMPHOCYTES # (AUTO) 1.4 10^3/uL (1.0-4.0); LYMPHOCYTES % (AUTO) 27 % (12-44); MEAN CORPUSCULAR HEMOGLOBIN 27 pg (25-34); MEAN CORPUSCULAR HGB CONC 33 g/dL (32-36); MEAN CORPUSCULAR VOLUME 81 fL (80-99); MEAN PLATELET VOLUME 8.5 fL (9.0-12.2); MONOCYTES # (AUTO) 0.4 10^3/uL (0.0-1.0); MONOCYTES % (AUTO) 8 % (0-12); NEUTROPHILS # (AUTO) 3.2 10^3/uL (1.8-7.8); NEUTROPHILS % (AUTO) 61 % (42-75); PLATELET COUNT 235 10^3/uL (130-400); WHITE BLOOD COUNT 5.2 10^3/uL (4.3-11.0)
[2021-11-27 07:12] LABS: ALBUMIN 3.6 GM/DL (3.2-4.5); POTASSIUM 4.3 MMOL/L (3.6-5.0)
[2021-11-27 07:13] LABS: CALCIUM 8.8 MG/DL (8.5-10.1)
[2021-11-27 07:14] LABS: TOTAL PROTEIN 5.8 GM/DL (6.4-8.2)
[2021-11-27 07:16] LABS: BILIRUBIN,TOTAL 0.3 MG/DL (0.1-1.0)
[2021-11-27 07:18] LABS: CREATININE SERUM 0.7 MG/DL (0.60-1.30)
--- NOTE | 2021-11-27 07:47 | Progress Note - Surgery ---
JOSELEDADAVID Champion 11/27/21 0747: Subjective Date Seen by a Provider: Nov 27, 2021 Time Seen by a Provider: 07:40 Subjective/Events-last exam Pt is sitting comfortably in room. Notes no abd pain or blood in stool today. Pt states she has had diarrhea today. Pt has been tolerating diet. Denies n/v Focused Exam Lactate Level 11/25/21 19:47: Lactic Acid Level 1.13 Objective Exam Vital Signs Date Time Temp Pulse Resp B/P (MAP) Pulse Ox O2 Delivery O2 Flow Rate FiO2 11/27/21 07:10 89 11/27/21 04:13 36.5 93 20 150/82 (104) 95 Room Air 11/27/21 01:00 104 11/27/21 00:00 36.4 78 20 148/83 (104) 97 Room Air 11/26/21 20:17 Room Air 11/26/21 19:30 36.1 98 20 134/80 (98) 99 Room Air 11/26/21 19:00 94 11/26/21 16:32 36.0 95 20 137/80 (99) 96 Room Air 11/26/21 12:14 99 11/26/21 12:07 97 11/26/21 11:31 35.8 85 20 139/63 (88) 99 Room Air 11/26/21 08:09 36.2 88 96 21 11/26/21 08:01 36.2 88 20 145/65 (91) 96 Room Air 11/26/21 08:00 Room Air I & O 11/27/21 07:00 Intake Total 1630 ml Output Total 900 ml Balance 730 ml Capillary Refill : General Appearance: No Apparent Distress, WD/WN HEENT: PERRL/EOMI, Normal ENT Inspection Neck: Non Tender, Supple Respiratory: Normal Breath Sounds, No Accessory Muscle Use Cardiovascular: Regular Rate, Rhythm, No JVD Gastrointestinal: non tender, soft; No tenderness Extremity: Normal Capillary Refill, Normal Inspection Neurologic/Psychiatric: Alert; No Depressed Affect Skin: Normal Color, Warm/Dry Lymphatic: No Adenopathy Results Lab Laboratory Tests 11/26/21 08:30: Stool Occult Blood Immunoassay POSITIVEH 11/26/21 11:27: Glucometer 197H 11/26/21 15:28: Glucometer 237H 11/26/21 20:15: Glucometer 209H 11/27/21 05:29: Glucometer 181H 11/27/21 06:28: White Blood Count 5.2, Red Blood Count 4.17, Hemoglobin 11.2L, Hematocrit 34L, Mean Corpuscular Volume 81, Mean Corpuscular Hemoglobin 27, Mean Corpuscular Hemoglobin Concent 33, Red Cell Distribution Width 13.6, Platelet Count 235, Mean Platelet Volume 8.5L, Immature Granulocyte % (Auto) 1, Neutrophils (%) (Auto) 61, Lymphocytes (%) (Auto) 27, Monocytes (%) (Auto) 8, Eosinophils (%) (Auto) 4, Basophils (%) (Auto) 1, Neutrophils # (Auto) 3.2, Lymphocytes # (Auto) 1.4, Monocytes # (Auto) 0.4, Eosinophils # (Auto) 0.2, Basophils # (Auto) 0.0, Immature Granulocyte # (Auto) 0.0, Sodium Level 128L, Potassium Level 4.3, Chloride Level 100, Carbon Dioxide Level 22, Anion Gap 6, Blood Urea Nitrogen 16, Creatinine 0.70, Estimat Glomerular Filtration Rate 88, BUN/Creatinine Ratio 23, Glucose Level 183H, Calcium Level 8.8, Corrected Calcium 9.1, Total Bilirubin 0.3, Aspartate Amino Transf (AST/SGOT) 13, Alanine Aminotransferase (ALT/SGPT) 19, Alkaline Phosphatase 49, Total Protein 5.8L, Albumin 3.6 Microbiology 11/26/21 C. difficile GDH Antigen & Toxins - Final, Resulted 11/26/21 Stool Culture, Resulted Pending 11/25/21 Urine Culture - Final, Complete NO GROWTH Assessment/Plan Assessment/Plan Assessment/Plan Left lower quadrant abdominal pain-improved Diarrhea Occult positive stools Pt tolerating diet, continue with current diet plan Continue supportive measures Stool studies still pending, continue to await stool studies result KEERTHI PARKS DO 11/27/21 0751: Subjective Subjective/Events-last exam No abdominal pain. Still with diarrhea multiple times. Tolerating diet. Denies n/v fever sweats chills shortness of breath or chest pain. Objective Exam General Appearance: No Apparent Distress, WD/WN HEENT: PERRL/EOMI, Normal ENT Inspection Neck: Non Tender, Supple Respiratory: Chest Non Tender, Normal Breath Sounds, No Accessory Muscle Use Cardiovascular: Regular Rate, Rhythm, No JVD Gastrointestinal: non tender, soft; No tenderness Extremity: Normal Capillary Refill, Normal Inspection Neurologic/Psychiatric: Alert, Oriented x3 Skin: Normal Color, Warm/Dry Lymphatic: No Adenopathy Assessment/Plan Assessment/Plan Assessment/Plan Left lower quadrant abdominal pain-improved Diarrhea Occult positive stools Pt tolerating diet, continue with current diet plan Continue supportive measures Stool studies still pending, continue to await stool studies result Endoscopy outpatient unless change and would do inpatient. Supervisory-Addendum Brief Verification & Attestation Participated in pt care: history, MDM, physical Personally performed: exam, history, MDM, supervision of care Care discussed with: Medical Student Procedures: n/a Results interpretation: Verified all documentation Verification and Attestation of Medical Student E/M Service A medical student performed and documented this service in my presence. I reviewed and verified all information documented by the medical student and made modifications to such information, when appropriate. I personally performed the physical exam and medical decision making. Keerthi Parks, Nov 27, 2021,07:51 DAVID DAVIS Nov 27, 2021 07:47 KEERTHI PARKS DO Nov 27, 2021 07:51
[2021-11-27 07:53] VITALS: BP 152/73
[2021-11-27] MEDS: MEMANTINE 10 MG (NAMENDA) TABLET PO SCH (08:37)
[2021-11-27] MEDS: MECLIZINE 25 MG (ANTIVERT) TAB PO SCH (08:37)
[2021-11-27] MEDS: SENNOSIDES 8.6 MG (SENOKOT) TAB PO SCH (08:37)
[2021-11-27] MEDS: diphenhydrAMINE 25 MG TAB (BENADRYL) PO SCH (08:37)
[2021-11-27] MEDS: GLIMEPIRIDE 1 MG (AMARYL) TAB PO SCH (08:37)
[2021-11-27] MEDS: MENTHOL/ZINC OXIDE (CALMOSEPTINE) 113 GM TUBE TOP SCH (08:38)
[2021-11-27] MEDS: DOCUSATE SODIUM 100 MG (COLACE) CAP PO SCH (08:38)
[2021-11-27] MEDS ORDERED: IRON SUCROSE 200 MG/10 ML (VENOFER) VIAL IV SCH (09:00)
[2021-11-27] MEDS ORDERED: CYANOCOBALAMIN INJ 1000 MCG/ML IM ONE (09:00)
[2021-11-27] MEDS ORDERED: LOPERAMIDE 2 MG (IMODIUM) TABLET PO PRN (09:00)
[2021-11-27] MEDS ORDERED: lisINopril 20 MG (PRINIVIL) TABLET PO SCH (09:00)
[2021-11-27] MEDS ORDERED: ASPIRIN E.C. 81 MG (ECOTRIN) TAB PO SCH (09:00)
[2021-11-27] MEDS ORDERED: CHOLESTYRAMINE 4 GM (QUESTRAN LITE, PREVALITE) PKT PO SCH (09:00)
[2021-11-27] MEDS ORDERED: SODIUM CHLORIDE 1 GM TABLET PO SCH (09:00)
[2021-11-27] MEDS ORDERED: CALCIUM CARBONATE 600 MG (CALCARB) TAB PO SCH (09:00)
[2021-11-27] MEDS ORDERED: LISI20TA26 PO (09:11)
[2021-11-27] MEDS ORDERED: LOPE2CAP PO (09:11)
[2021-11-27] MEDS ORDERED: CHOL4PAC3 PO (09:11)
[2021-11-27] MEDS ORDERED: NF-NACL1GT PO (09:11)
--- NOTE | 2021-11-27 09:13 | Discharge Summary ---
Diagnosis/Chief Complaint Date of Admission Nov 25, 2021 at 18:58 Date of Discharge Discharge Date: Nov 27, 2021 Discharge Diagnosis CC: weakness HPI: Mohini Martinez is a 81y/o F w/ PMH of dementia, DM, HTN, HLD, and vertigo who came here for direct admission from clinic due to weakness on 11/26. Pt reported that since November 18 she has been having LLQ abdominal pain. She states that she has also been having blood stools daily. Continued to have abdominal pain which she rated as a 7/10. Described the pain as sharp and intermittent. Has never had episodes like this in the past. Stated that she was given antibiotics for the abdominal pain and says that they did not help (she is unsure what they were). Denies any fevers or chills. Abdominal CT on 11/19 showed no diverticulosis. Has not slept well for the past 4 days and states that she has been a little weaker than normal. Today her appetite was good. Not having any headaches or dizziness. Still having frequent episodes of diarrhea, around 10 times a day. Had been a chronic issue but worsened upon admission. PMH: TBI (1963) HTN HLD Vertigo PSH: T/A Cholecystectomy All: Penicillins Sulfa Meds: Vit B12 1000mcg once, calmoseptine ointment BID, iron sucrose 200mg Q48 5 doses, lisinopril 20mg QD, benadryl 25mg BID, memantine 10mg BID, meclizine 25mg BID, glimepiride 1mg BID, calcium carbonate 600mg QD, aspirin 81 QD, insulin aspart- sliding scare, fish oil 1000 mg HS, lovenox 40mg QD SH: Lives w/ , retired, former smoker FH: No pertinent family history ROS: gen: no fevers, chills heent: no vision changes, eye pain cardiac: no CP, palpitations lungs: no SOB, cough GI: has diarrhea, no abdominal pain, N/V : no dysuria, hematuria MSK: no joint or muscle pain neuro: no numbness, tingling in extremities Exam: gen: age appearing female, well groomed heent: PERRL/EOMI cardiac: RRR, no murmur lungs: CTAB, normal rate GI: soft, not tender LE: mild pedal edema, normal pulses neuro: alert, normal speech Labs: Hgb: 12.8(8/1), 11.3(8/2), 11.2(8/3) Na+: 133(8/1), 133(8/2), 128(8/3) K+: 4.6(8/1), 4.3(8/2), 4.3(8/3) Cl-: 99(8/1), 102(8/2), 100(8/3) Stool occult blood: positive A&P Failure to thrive due to dementia -head CT done showed, according to radiology, advanced volume loss with bifrontal and anterior temporal encephalomalacia. This pattern suggests sequela of a prior closed head injury. No CT findings of a new or acute intracranial abnormality. -UA done, had large bacteria but was negative for ketones and nitrates. trace leukocyte esterase -PT evaluation ordered -dietitian consult per family request -TSH of 1.09, CRP of 1.64 -continue home memantine -PT done while here -will order outpt PT Abdominal pain -abdominal CT done on 11/19 showed, according to radiology, 1. Liquid stool in the colon; correlate for diarrheal state. No segmental large or small bowel wall thickening, and no diverticulitis. No obstruction or perforation. Some pelvic floor incompetency with rectocele and cystocele without obstruction or perfo ration. Nonaneurysmal atherosclerosis without findings of acute end organ ischemia. Fatty liver with nonacute pancreas. No biliary dilatation. -acute abdomen XR series showed, according to radiology, No evidence of an acute cardiopulmonary process. There is moderate stool within the right colon. There are few air-fluid levels on the upright view suggesting fluid-filled loops of small bowel. There is however no evidence of small bowel dilation to suggest obstruction. No findings of free air. -stool occult blood was positive -C.diff toxin and antigen negative, stool culture pending -consulted surgery (Dr. Parks) -surgery will follow up on colonoscopy as an outpt Edema -cardiology consult done by Dr. Chavez -echo done yesterday showed EF of 55% and pulmonary artery pressure of 35- 40mmHg HTN -stopping lisinopril/HCTZ and starting on lisinopril only on discharge -will continue to monitor as outpt Hyponatremia -decreased sodium of 128 today, likely due to her frequent diarrhea stools (c.diff toxin A/B and antigen negative) -starting her on imodium, questran, and salt tablets on D/C -suggested that she try not to drink excessive amounts of fluids -will be be checking electrolyte levels Thursday when she is seen in clinic Diabetes mellitus type 2 -on SSI while in hospital -continue home glimepiride -needs to continue diabetic diet at home Anemia -Hgb of 11.3 -iron studies done, iron was 46, all other levels of no concern -starting iron sucrose 200mg Q48H for five doses -will continue to monitor as outpt Vertigo -continue home meclizine -Will be discharging to home this afternoon, pt was instructed on how she needs to get labs Thursday at [facility] before being seen in clinic that afternoon Reason Hospital Visit Discharge Summary Discharge Physical Examination Allergies: Coded Allergies: Penicillins (Unverified Allergy, Intermediate, Rash, 09/03/21) Sulfa (Sulfonamide Antibiotics) (Unverified Allergy, Intermediate, Rash, 09/03/21) Vitals & I&Os Vital Signs Date Time Temp Pulse Resp B/P (MAP) Pulse Ox O2 Delivery O2 Flow Rate FiO2 11/27/21 13:35 11/27/21 12:14 95 11/27/21 11:42 36.4 18 96 Room Air 11/26/21 08:09 21 General Appearance: Alert, Oriented X3, Cooperative Respiratory: Clear to Auscultation Cardiovascular: Regular Rate Neuro: Normal Gait Hospital Course Was the Problem List Reviewed?: Yes see above Labs (last 24 hrs) Laboratory Tests 11/25/21 17:49: Erythrocyte Sedimentation Rate 18 11/25/21 19:47: White Blood Count 7.2, Red Blood Count 4.69, Hemoglobin 12.8, Hematocrit 38, Mean Corpuscular Volume 82, Mean Corpuscular Hemoglobin 27, Mean Corpuscular Hemoglobin Concent 33, Red Cell Distribution Width 13.7, Platelet Count 264, Mean Platelet Volume 8.4L, Immature Granulocyte % (Auto) 0, Neutrophils (%) (Auto) 63, Lymphocytes (%) (Auto) 25, Monocytes (%) (Auto) 8, Eosinophils (%) (Auto) 3, Basophils (%) (Auto) 1, Neutrophils # (Auto) 4.5, Lymphocytes # (Auto) 1.8, Monocytes # (Auto) 0.6, Eosinophils # (Auto) 0.2, Basophils # (Auto) 0.1, Immature Granulocyte # (Auto) 0.0, D-Dimer 0.50H, Sodium Level 133L, Potassium Level 4.6, Chloride Level 99, Carbon Dioxide Level 23, Anion Gap 11, Blood Urea Nitrogen 25H, Creatinine 0.89, Estimat Glomerular Filtration Rate 66, BUN/Creatinine Ratio 28, Glucose Level 183H, Lactic Acid Level 1.13, Calcium Level 9.8, Corrected Calcium 9.8, Total Bilirubin 0.2, Aspartate Amino Transf (AST/SGOT) 12, Alanine Aminotransferase (ALT/SGPT) 20, Alkaline Phosphatase 60, Troponin I < 0.028, C-Reactive Protein High Sensitivity 1.64H, Total Protein 6.4, Albumin 4.0, Procalcitonin 0.04, Thyroid Stimulating Hormone (TSH) 1.09 11/25/21 21:47: Urine Color YELLOW, Urine Clarity CLEAR, Urine pH 5.5, Urine Specific [place] 1.015L, Urine Protein NEGATIVE, Urine Glucose (UA) TRACEH, Urine Ketones NEGATIVE, Urine Nitrite NEGATIVE, Urine Bilirubin NEGATIVE, Urine Urobilinogen 0.2, Urine Leukocyte Esterase TRACEH, Urine RBC (Auto) NEGATIVE, Urine RBC NONE, Urine WBC 5-10H, Urine Squamous Epithelial Cells 2-5, Urine Renal Epithelial Cells NONE, Urine Crystals NONE, Urine Bacteria LARGEH, Urine Casts NONE, Urine Mucus NEGATIVE, Urine Culture Indicated YES 11/25/21 21:53: Glucometer 278H 11/25/21 22:08: Iron Level 46, Total Iron Binding Capacity 251, Unsaturated Iron Binding Capacity 205, Transferrin % Saturation 18, Ferritin 27.4, Vitamin B12 Level 287 11/26/21 05:19: Glucometer 161H 11/26/21 05:44: White Blood Count 5.6, Red Blood Count 4.14, Hemoglobin 11.3L, Hematocrit 34L, Mean Corpuscular Volume 82, Mean Corpuscular Hemoglobin 27, Mean Corpuscular Hemoglobin Concent 33, Red Cell Distribution Width 13.9, Platelet Count 258, Mean Platelet Volume 9.1, Immature Granulocyte % (Auto) 1, Neutrophils (%) (Auto) 60, Lymphocytes (%) (Auto) 26, Monocytes (%) (Auto) 9, Eosinophils (%) (Auto) 3, Basophils (%) (Auto) 1, Neutrophils # (Auto) 3.4, Lymphocytes # (Auto) 1.5, Monocytes # (Auto) 0.5, Eosinophils # (Auto) 0.2, Basophils # (Auto) 0.1, Immature Granulocyte # (Auto) 0.0, Sodium Level 133L, Potassium Level 4.3, Chloride Level 102, Carbon Dioxide Level 21, Anion Gap 10, Blood Urea Nitrogen 18, Creatinine 0.71, Estimat Glomerular Filtration Rate 86, BUN/Creatinine Ratio 25, Glucose Level 144H, Calcium Level 9.2, Corrected Calcium 9.6, Total Bilirubin 0.2, Aspartate Amino Transf (AST/SGOT) 11, Alanine Aminotransferase (ALT/SGPT) 17, Alkaline Phosphatase 48, Total Protein 5.7L, Albumin 3.5 11/26/21 08:30: Stool Occult Blood Immunoassay POSITIVE 11/26/21 11:27: Glucometer 197H 11/26/21 15:28: Glucometer 237 11/26/21 20:15: Glucometer 209H 11/27/21 05:29: Glucometer 181H 11/27/21 06:28: White Blood Count 5.2, Red Blood Count 4.17, Hemoglobin 11.2L, Hematocrit 34L, Mean Corpuscular Volume 81, Mean Corpuscular Hemoglobin 27, Mean Corpuscular Hemoglobin Concent 33, Red Cell Distribution Width 13.6, Platelet Count 235, Mean Platelet Volume 8.5L, Immature Granulocyte % (Auto) 1, Neutrophils (%) (Auto) 61, Lymphocytes (%) (Auto) 27, Monocytes (%) (Auto) 8, Eosinophils (%) (Auto) 4, Basophils (%) (Auto) 1, Neutrophils # (Auto) 3.2, Lymphocytes # (Auto) 1.4, Monocytes # (Auto) 0.4, Eosinophils # (Auto) 0.2, Basophils # (Auto) 0.0, Immature Granulocyte # (Auto) 0.0, Sodium Level 128L, Potassium Level 4.3, Chlo ride Level 100, Carbon Dioxide Level 22, Anion Gap 6, Blood Urea Nitrogen 16, Creatinine 0.70, Estimat Glomerular Filtration Rate 88, BUN/Creatinine Ratio 23, Glucose Level 183H, Calcium Level 8.8, Corrected Calcium 9.1, Total Bilirubin 0.3, Aspartate Amino Transf (AST/SGOT) 13, Alanine Aminotransferase (ALT/SGPT) 19, Alkaline Phosphatase 49, Total Protein 5.8L, Albumin 3.6 11/27/21 11:41: Glucometer 238H Microbiology 11/26/21 C. difficile GDH Antigen & Toxins - Final, Resulted 11/26/21 Stool Culture - Preliminary, Resulted Culture In Progress 11/25/21 Urine Culture - Final, Complete NO GROWTH Pending Labs Microbiology Date/Time Source Procedure Growth Status 11/26/21 07:54 Stool C. difficile GDH Antigen & Toxins - Final Resulted 11/26/21 07:54 Stool Culture - Preliminary Culture In Progress Resulted 11/25/21 21:47 Urine Clean Catch Urine Culture - Final NO GROWTH Complete Laboratory Tests 11/25/21 17:49: Erythrocyte Sedimentation Rate 18 11/25/21 19:47: White Blood Count 7.2, Red Blood Count 4.69, Hemoglobin 12.8, Hematocrit 38, Mean Corpuscular Volume 82, Mean Corpuscular Hemoglobin 27, Mean Corpuscular Hemoglobin Concent 33, Red Cell Distribution Width 13.7, Platelet Count 264, Mean Platelet Volume 8.4, Immature Granulocyte % (Auto) 0, Neutrophils (%) (Auto) 63, Lymphocytes (%) (Auto) 25, Monocytes (%) (Auto) 8, Eosinophils (%) (Auto) 3, Basophils (%) (Auto) 1, Neutrophils # (Auto) 4.5, Lymphocytes # (Auto) 1.8, Monocytes # (Auto) 0.6, Eosinophils # (Auto) 0.2, Basophils # (Auto) 0.1, Immature Granulocyte # (Auto) 0.0, D-Dimer 0.50, Sodium Level 133, Potassium Level 4.6, Chloride Level 99, Carbon Dioxide Level 23, Anion Gap 11, Blood Urea Nitrogen 25, Creatinine 0.89, Estimat Glomerular Filtration Rate 66, BUN/Creatinine Ratio 28, Glucose Level 183, Lactic Acid Level 1.13, Calcium Level 9.8, Corrected Calcium 9.8, Total Bilirubin 0.2, Aspartate Amino Transf (AST/SGOT) 12, Alanine Aminotransferase (ALT/SGPT) 20, Alkaline Phosphatase 60, Troponin I < 0.028, C-Reactive Protein High Sensitivity 1.64, Total Protein 6.4, Albumin 4.0, Procalcitonin 0.04, Thyroid Stimulating Hormone (TSH) 1.09 11/25/21 21:47: Urine Color YELLOW, Urine Clarity CLEAR, Urine pH 5.5, Urine Specific [place] 1.015, Urine Protein NEGATIVE, Urine Glucose (UA) TRACE, Urine Ketones NEGATIVE, Urine Nitrite NEGATIVE, Urine Bilirubin NEGATIVE, Urine Urobilinogen 0.2, Urine Leukocyte Esterase TRACE, Urine RBC (Auto) NEGATIVE, Urine RBC NONE, Urine WBC 5-10, Urine Squamous Epithelial Cells 2-5, Urine Renal Epithelial Cells NONE, Urine Crystals NONE, Urine Bacteria LARGE, Urine Casts NONE, Urine Mucus NEGATIVE, Urine Culture Indicated YES 11/25/21 21:53: Glucometer 278 11/25/21 22:08: Iron Level 46, Total Iron Binding Capacity 251, Unsaturated Iron Binding Capacity 205, Transferrin % Saturation 18, Ferritin 27.4, Vitamin B12 Level 287 11/26/21 05:19: Glucometer 161 11/26/21 05:44: White Blood Count 5.6, Red Blood Count 4.14, Hemoglobin 11.3, Hematocrit 34, Mean Corpuscular Volume 82, Mean Corpuscular Hemoglobin 27, Mean Corpuscular Hemoglobin Concent 33, Red Cell Distribution Width 13.9, Platelet Count 258, Mean Platelet Volume 9.1, Immature Granulocyte % (Auto) 1, Neutrophils (%) (Auto) 60, Lymphocytes (%) (Auto) 26, Monocytes (%) (Auto) 9, Eosinophils (%) (Auto) 3, Basophils (%) (Auto) 1, Neutrophils # (Auto) 3.4, Lymphocytes # (Auto) 1.5, Monocytes # (Auto) 0.5, Eosinophils # (Auto) 0.2, Basophils # (Auto) 0.1, Immature Granulocyte # (Auto) 0.0, Sodium Level 133, Potassium Level 4.3, Chloride Level 102, Carbon Dioxide Level 21, Anion Gap 10, Blood Urea Nitrogen 18, Creatinine 0.71, Estimat Glomerular Filtration Rate 86, BUN/Creatinine Ratio 25, Glucose Level 144, Calcium Level 9.2, Corrected Calcium 9.6, Total Bilirubin 0.2, Aspartate Amino Transf (AST/SGOT) 11, Alanine Aminotransferase (ALT/SGPT) 17, Alkaline Phosphatase 48, Total Protein 5.7, Albumin 3.5 11/26/21 08:30: Stool Occult Blood Immunoassay POSITIVE 11/26/21 11:27: Glucometer 197 11/26/21 15:28: Glucometer 237 11/26/21 20:15: Glucometer 209 11/27/21 05:29: Glucometer 181 11/27/21 06:28: White Blood Count 5.2, Red Blood Count 4.17, Hemoglobin 11.2, Hematocrit 34, Mean Corpuscular Volume 81, Mean Corpuscular Hemoglobin 27, Mean Corpuscular Hemoglobin Concent 33, Red Cell Distribution Width 13.6, Platelet Count 235, Mean Platelet Volume 8.5, Immature Granulocyte % (Auto) 1, Neutrophils (%) (Auto) 61, Lymphocytes (%) (Auto) 27, Monocytes (%) (Auto) 8, Eosinophils (%) (Auto) 4, Basophils (%) (Auto) 1, Neutrophils # (Auto) 3.2, Lymphocytes # (Auto) 1.4, Monocytes # (Auto) 0.4, Eosinophils # (Auto) 0.2, Basophils # (Auto) 0.0, Immature Granulocyte # (Auto) 0.0, Sodium Level 128, Potassium Level 4.3, Chl oride Level 100, Carbon Dioxide Level 22, Anion Gap 6, Blood Urea Nitrogen 16, Creatinine 0.70, Estimat Glomerular Filtration Rate 88, BUN/Creatinine Ratio 23, Glucose Level 183, Calcium Level 8.8, Corrected Calcium 9.1, Total Bilirubin 0.3, Aspartate Amino Transf (AST/SGOT) 13, Alanine Aminotransferase (ALT/SGPT) 19, Alkaline Phosphatase 49, Total Protein 5.8, Albumin 3.6 11/27/21 11:41: Glucometer 238 Discharge Home Medications: Active Scripts Active Loperamide (Loperamide HCl) 2 Mg Capsule 2 Mg PO NEEDED PRN Sodium Chloride 1 Gram Tab 1 Gm PO BID Lisinopril 20 Mg Tablet 20 Mg PO DAILY Prevalite Packet (Cholestyramine/Aspartame) 4 Gram Powd.pack 4 Gm PO BID Reported Flonase Allergy Relief (Fluticasone Propionate) 50 Mcg/Actuation [place].susp 1-2 [place] NSEACH DAILY PRN Metformin HCl 1,000 Mg Tablet 1,000 Mg PO BID Calcium Carbonate 600 Mg Calcium (1500 Mg) Tablet 600 Mg PO DAILY Aspirin EC (Aspirin) 81 Mg Tablet.dr 81 Mg PO DAILY Memantine HCl 10 Mg Tablet 10 Mg PO BID Glimepiride 1 Mg Tablet 1 Mg PO BID Diphenhydramine HCl 25 Mg Capsule 25 Mg PO BID Fish Oil [place]-3 Softgel ([place]-3S/Dha/Epa/Fish Oil) 980 Mg-253 Mg-647 Mg-1,400 Mg Capsule.dr 1 Each PO HS Meclizine HCl 25 Mg Tablet 25 Mg PO BID Instructions to patient/family Please see electronic discharge instructions given to patient. Diagnosis/Problems Diagnosis/Problems (1) Edema (2) Diabetes (3) Vascular dementia (4) Diarrhea (5) Weakness JAMES BOWDEN DO Nov 27, 2021 09:13
--- NOTE | 2021-11-27 09:55 | Progress Note ---
CARMINA FRY 11/27/21 0955: Progress Note CC: weakness HPI: Mohini Martinez is a 81y/o F w/ PMH of dementia, DM, HTN, HLD, and vertigo who came here for direct admission from clinic due to weakness on 11/26. Pt reported that since November 18 she has been having LLQ abdominal pain. She states that she has also been having blood stools daily. Continued to have abdominal pain which she rated as a 7/10. Described the pain as sharp and intermittent. Has never had episodes like this in the past. Stated that she was given antibiotics for the abdominal pain and says that they did not help (she is unsure what they were). Denies any fevers or chills. Abdominal CT on 11/19 showed no diverticulosis. Has not slept well for the past 4 days and states that she has been a little weaker than normal. Today her appetite was good. Not having any headaches or dizziness. Still having frequent episodes of diarrhea, around 10 times a day. Had been a chronic issue but worsened upon admission. PMH: TBI (1961) HTN HLD Vertigo PSH: T/A Cholecystectomy All: Penicillins Sulfa Meds: Vit B12 1000mcg once, calmoseptine ointment BID, iron sucrose 200mg Q48 5 doses, lisinopril 20mg QD, benadryl 25mg BID, memantine 10mg BID, meclizine 25mg BID, glimepiride 1mg BID, calcium carbonate 600mg QD, aspirin 81 QD, insulin aspart- sliding scare, fish oil 1000 mg HS, lovenox 40mg QD SH: Lives w/ , retired, former smoker FH: No pertinent family history ROS: gen: no fevers, chills heent: no vision changes, eye pain cardiac: no CP, palpitations lungs: no SOB, cough GI: has diarrhea, no abdominal pain, N/V : no dysuria, hematuria MSK: no joint or muscle pain neuro: no numbness, tingling in extremities Exam: gen: age appearing female, well groomed heent: PERRL/EOMI cardiac: RRR, no murmur lungs: CTAB, normal rate GI: soft, not tender LE: mild pedal edema, normal pulses neuro: alert, normal speech Labs: Hgb: 12.8(8/1), 11.3(8/2), 11.2(8/3) Na+: 133(8/1), 133(8/2), 128(8/3) K+: 4.6(8/1), 4.3(8/2), 4.3(8/3) Cl-: 99(8/1), 102(8/2), 100(8/3) Stool occult blood: positive A&P Failure to thrive due to dementia -head CT done showed, according to radiology, advanced volume loss with bifrontal and anterior temporal encephalomalacia. This pattern suggests sequela of a prior closed head injury. No CT findings of a new or acute intracranial abnormality. -UA done, had large bacteria but was negative for ketones and nitrates. trace leukocyte esterase -PT evaluation ordered -dietitian consult per family request -TSH of 1.09, CRP of 1.64 -continue home memantine -PT done while here -will order outpt PT Abdominal pain -abdominal CT done on 11/19 showed, according to radiology, 1. Liquid stool in the colon; correlate for diarrheal state. No segmental large or small bowel wall thickening, and no diverticulitis. No obstruction or perforation. Some pelvic floor incompetency with rectocele and cystocele without obstruction or perforation. Nonaneurysmal atherosclerosis without findings of acute end organ ischemia. Fatty liver with nonacute pancreas. No biliary dilatation. -acute abdomen XR series showed, according to radiology, No evidence of an acute cardiopulmonary process. There is moderate stool within the right colon. There are few air-fluid levels on the upright view suggesting fluid-filled loops of small bowel. There is however no evidence of small bowel dilation to suggest obstruction. No findings of free air. -stool occult blood was positive -C.diff toxin and antigen negative, stool culture pending -consulted surgery (Dr. Parks) -surgery will follow up on colonoscopy as an outpt Edema -cardiology consult done by Dr. Chavez -echo done yesterday showed EF of 55% and pulmonary artery pressure of 35- 40mmHg HTN -stopping lisinopril/HCTZ and starting on lisinopril only on discharge -will continue to monitor as outpt Hyponatremia -decreased sodium of 128 today, likely due to her frequent diarrhea stools (c.diff toxin A/B and antigen negative) -starting her on imodium, questran, and salt tablets on D/C -suggested that she try not to drink excessive amounts of fluids -will be be checking electrolyte levels Thursday when she is seen in clinic Diabetes mellitus type 2 -on SSI while in hospital -continue home glimepiride -needs to continue diabetic diet at home Anemia -Hgb of 11.3 -iron studies done, iron was 46, all other levels of no concern -starting iron sucrose 200mg Q48H for five doses -will continue to monitor as outpt Vertigo -continue home meclizine -Will be discharging to home this afternoon, pt was instructed on how she needs to get labs Thursday at [facility] before being seen in clinic that afternoon MAYRA BOWDEN DO 11/27/211911: Supervisory-Addendum Brief Verification & Attestation Participated in pt care: history, MDM, physical Personally performed: exam, history, MDM, supervision of care Care discussed with: Medical Student Procedures: n/a Results interpretation: Verified all documentation Verification and Attestation of Medical Student E/M Service A medical student performed and documented this service in my presence. I reviewed and verified all information documented by the medical student and made modifications to such information, when appropriate. I personally performed the physical exam and medical decision making. Mayra Bowden, Nov 27, 2021,19:12 CARMINA FRY Nov 27, 2021 09:55 MAYRA BOWDEN DO Nov 27, 2021 19:12
--- NOTE | 2021-11-27 11:02 | Cardiology Progress Note ---
Subjective Date Seen by Provider: Nov 27, 2021 Time Seen by Provider: 11:01 Subjective/Events-last exam Patient was seen at bedside, sitting comfortably Still having mild diarrhea, reporting improvement in the abdominal pain. Review of Systems General: No Chills, No Night Sweats, No Fatigue, No Malaise, No Appetite, No Other HEENT: No Head Aches, No Visual Changes, No Eye Pain, No Ear Pain, No Dysphasia, No Sinus Congestion, No Post Nasal Drip, No Sore Throat, No Other Pulmonary: No Dyspnea, No Cough, No Pleuritic Chest Pain, No Other Cardiovascular: No: Chest Pain, Palpitations, Orthopnea, Paroxysmal Noc. Dyspnea, Edema, Lt Headedness, Other Focused Exam Lactate Level 11/25/21 19:47: Lactic Acid Level 1.13 Objective-Cardiology Exam Last Set of Vital Signs Vital Signs 11/26/21 11/27/21 11/27/21 11/27/21 08:09 07:53 07:54 08:00 Temp 36.4 Pulse 92 Resp 20 B/P (MAP) 152/73 (99) Pulse Ox 95 O2 Delivery Room Air FiO2 21 I&O Intake and Output 11/27/21 00:00 Intake Total 1600 ml Output Total 1000 ml Balance 600 ml Intake Oral 1600 ml Output Urine Total 1000 ml # Voids 2 # Bowel Movements 10 General: Alert, Oriented X3, Cooperative HEENT: Atraumatic, PERRLA Neck: Supple, No JVD, No Thyromegaly Lungs: Clear to Auscultation, Normal Air Movement Heart: Regular Rate, Normal S1, Normal S2, No Murmurs Abdomen: Normal Bowel Sounds, Soft, No Tenderness, No Hepatosplenomegaly, No Masses Extremities: No Clubbing, No Cyanosis, No Edema, Normal Pulses, No Tend erness/Swelling Skin: No Rashes, No Breakdown, No Significant Lesion Neuro: Normal Gait, Normal Speech, Strength at 5/5 X4 Ext, Normal Tone, Sensation Intact Psych/Mental Status: Mental Status NL, Mood NL Results Lab Laboratory Tests 11/27/21 06:28 A/P-Cardiology Admission Diagnosis Generalized weakness Lower abdominal pain Peripheral edema Hypertension Assessment/Plan Generalized weakness and loss of energy. Lower abdominal pain and diarrhea, CT scan did not show any acute diverticulosis. Currently no active pain. Peripheral edema. 2D echo was done on November 26, 2021 showing ejection fraction 55%. Normal pulmonary artery pressure. No significant abnormality. Hypertension, better control at this time, continue to monitor blood pressure Diabetes mellitus, followed and managed by primary care physician MIRTA BOB MD Nov 27, 2021 11:02
[2021-11-27 11:42] VITALS: BP 140/67
--- NOTE | 2021-11-27 13:19 | Physical Therapy Daily Note ---
PT Daily Note-Current Subjective Patient in recliner pre tx, agrees to PT, has no complaints of pain. Appearance Patient in recliner post tx with nurse call, phone, tray, all needs met, family in room. Mental Status Patient Orientation: Person, Place, Situation Transfers SCALE: Activities may be completed with or without assistive devices. 3-Xaohalcpjo-csmpmvt completes the activity by him/herself with no assistance from a helper. 5-Set-up or Clean-up Assistance-helper sets up or cleans up; patient completes activity. [place] assists only prior to or following the activity. 4-Supervision or Touching Assistance-helper provides verbal cues and/or touching/steadying and/or contact guard assistance as patient completes activity. Assistance may be provided throughout the activity or intermittently. 3-Partial/Moderate Assistance-helper does LESS THAN HALF the effort. [place] lifts, holds or supports trunk or limbs, but provides less than half the effort. 2-Substantial/Maximal Assistance-helper does MORE THAN HALF the effort. [place] lifts or holds trunk or limbs and provides more than half the effort. 8-Uvbrsajjs-hevgor does ALL the effort. Patient does none of the effort to complete the activity. Or, the assistance of 2 or more helpers is required for the patient to complete the activity. If activity was not attempted, code reason: 7-Patient Refused. 9-Not Applicable-not attempted and the patient did not perform the activity before the current illness, exacerbation or injury. 10-Not Attempted due to Environmental Limitations-(lack of equipment, weather restraints, etc.). 88-Not Attempted due to Medical Conditions or Safety Concerns. Sit to Stand (QC): 4 (SBA) Chair/Mjy-fo-Ygzoh Xfer(QC): 4 (SBA) Weight Bearing Right Lower Extremity: Right Full Weight Bearing Left Lower Extremity: Left Full Weight Bearing Gait Training Distance: 100' Walk 10 feet (QC): 4 Walk 50 ft with 2 Turns(QC): 4 Gait Persons Needed: 1 Gait Assistive Device: FWW SBA, slow but steady ambulation, poor foot clearance, left side trendelenburg gait Exercises Seated Therapy Exercises: Ankle pumps, Long arc quads Seated Reps: 20 Treatments transfers, ambulation, LE exercise Assessment Current Status: Fair Progress improving endurance PT Usp Goals Usp Goals PT Deliverer Outside Goals Time Frame: Dec 06, 2021 Roll Left & Right (QC): 6 Sit to Lying (QC): 6 Lying-Sitting on Side/Bed(QC): 6 Sit to Stand (QC): 6 Chair/Wof-un-Nizrc Xfer(QC): 6 Toilet Transfer (QC): 6 Does the Patient Walk: Yes Walk 10 feet (QC): 6 Walk 50ft with 2 Turns (QC): 6 Walk 150 ft (QC): 6 1 Step (curb) (QC): 4 4 Steps (QC): 4 12 Steps (QC): 4 PT Plan Problem List Problem List: Activity Tolerance, Functional Strength, Safety, Balance, Gait, Transfer, Bed Mobility, ROM Treatment/Plan Treatment Plan: Continue Plan of Care Treatment Plan: Bed Mobility, Education, Functional Activity Pat, Functional Strength, Group Therapy, Gait, Safety, Therapeutic Exercise, Transfers Treatment Duration: Dec 21, 2021 Frequency: 6 times per week Estimated Hrs Per Day: .25 hour per day Patient and/or Family Agrees t: Yes Safety Risks/Education Patient Education: Gait Training, Transfer Techniques, Correct Positioning, Safety Issues Teaching Recipient: Patient Teaching Methods: Demonstration, Discussion Response to Teaching: Reinforcement Needed Time/GCodes Time In: 1256 Time Out: 1306 Total Billed Treatment Time: 10 Total Billed Treatment 1 visit FA EMIL MELVIN PT Nov 27, 2021 13:19
== END 2021-11-27 13:35 | disposition home or self-care (01) ==
LOC: UNDOADMOB 18:58 → 4TH 18:58 → UNDODISOB 11-27 13:35
PROVIDERS: ADMIT Internal Medicine; ATTEND Internal Medicine
DX: R60.9 Edema, unspecified (principal); E11.9 Type 2 diabetes mellitus without complications; F01.50 Vascular dementia, unspecified severity, without behavioral disturbance, psychotic disturbance, mood disturbance, and anxiety; R19.7 Diarrhea, unspecified; R53.1 Weakness; R62.7 Adult failure to thrive; R10.9 Unspecified abdominal pain; I10 Essential (primary) hypertension; E87.1 Hypo-osmolality and hyponatremia; D64.9 Anemia, unspecified; R42 Dizziness and giddiness; Z79.82 Long term (current) use of aspirin; Z87.891 Personal history of nicotine dependence
CPT/HCPCS: 70450; 74022; 80053 ×3; 81000; 82274; 82607; 82728; 82947 ×3; 83540; 83550; 83605; 84145; 84443; 84484; 85025 ×3; 85379; 85652; 86141; 87015; 87045; 87046; 87088; 87324; 87449; 87899; 93005; 93306; 96372 ×3; 96374; 97116; 97162; 97165; 97530; G0378; G0379; 36415

== ENCOUNTER 2021-12-05 14:19 | Outpatient (RCR) | payer MEDICARE ==
[~2021-12-05 14:19] MED LIST changes: +ASPI-1238 PO; +CALC600T80 PO; +CHOL4PAC3 PO; +FLUT9.9S NSEACH; +LISI20TA26 PO; +LOPE2CAP PO; +METF-399 PO; -METF500S5 PO; +METF500S7 PO; +NF-NACL1GT PO
[2021-12-10] MEDS ORDERED: NF-NACL1GT PO (17:03)
[2021-12-10] MEDS ORDERED: LOPE2CAP PO (17:03)
[2021-12-20] MEDS ORDERED: AMLO-250 PO (21:23)
[2021-12-20] MEDS ORDERED: SUCR1TAB PO (21:23)
[2021-12-20] MEDS ORDERED: OLAN2.5T27 PO (21:23)
[2021-12-20] MEDS ORDERED: PANT40TA52 PO (21:23)
== END 2021-12-25 | disposition home or self-care (01) ==
PROVIDERS: ATTEND Internal Medicine
DX: R53.1 Weakness (principal)

== ENCOUNTER 2021-12-09 20:17 | Inpatient (IN) | payer MEDICARE ==
[~2021-12-09] VITALS: Ht 157.5 cm; Wt 93.2 kg
[~2021-12-09 20:17] MED LIST changes: +METF500S5 PO; -METF500S7 PO
[2021-12-09] MEDS ORDERED: NS IV 1000 ML 1,000 ML IV SCH (20:45)
[2021-12-09] MEDS ORDERED: PANTOPRAZOLE 40 MG (PROTONIX) VIAL IV ONE (20:45)
[2021-12-09 20:50] LABS: BASOPHILS % (AUTO) 1 % (0-10); CHLORIDE 105 MMOL/L (98-107); EOSINOPHILS # (AUTO) 0.2 10^3/uL (0.0-0.3); EOSINOPHILS % (AUTO) 3 % (0-10); HEMATOCRIT 37 % (35-52); HEMOGLOBIN 11.8 g/dL (11.5-16.0); LYMPHOCYTES # (AUTO) 1.7 10^3/uL (1.0-4.0); LYMPHOCYTES % (AUTO) 31 % (12-44); MEAN CORPUSCULAR HEMOGLOBIN 27 pg (25-34); MEAN CORPUSCULAR HGB CONC 32 g/dL (32-36); MEAN CORPUSCULAR VOLUME 84 fL (80-99); MEAN PLATELET VOLUME 8.7 fL (9.0-12.2); MONOCYTES # (AUTO) 0.4 10^3/uL (0.0-1.0); MONOCYTES % (AUTO) 8 % (0-12); NEUTROPHILS % (AUTO) 57 % (42-75); PLATELET COUNT 257 10^3/uL (130-400); POTASSIUM 4.3 MMOL/L (3.6-5.0); WHITE BLOOD COUNT 5.3 10^3/uL (4.3-11.0)
[2021-12-09 20:51] LABS: SODIUM 135 MMOL/L (135-145)
[2021-12-09 20:52] LABS: AMYLASE 41 U/L (25-125); CALCIUM 9.5 MG/DL (8.5-10.1)
[2021-12-09 20:53] LABS: GLUCOSE 107 MG/DL (70-105); TOTAL PROTEIN 6.7 GM/DL (6.4-8.2)
[2021-12-09 20:54] LABS: CARBON DIOXIDE 20 MMOL/L (21-32)
[2021-12-09 20:55] LABS: BILIRUBIN,TOTAL 0.3 MG/DL (0.1-1.0); INR 0.9 (0.8-1.4); PROTHROMBIN TIME PATIENT 12.8 SEC (12.2-14.7)
[2021-12-09 20:56] LABS: ALKALINE PHOSPHATASE 68 U/L (40-136)
[2021-12-09 20:57] LABS: CREATININE SERUM 0.74 MG/DL (0.60-1.30); GFR ESTIMATED 82
[2021-12-09 20:58] LABS: BUN/CREATININE RATIO 15
[2021-12-09 21:00] LABS: ALANINE AMINOTRANSFERASE 21 U/L (0-55); LIPASE 32 U/L (8-78)
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
--- NOTE | 2021-12-09 21:13 | Diagnostic Imaging Report ---
INDICATION: Hematemesis AP view of the chest is obtained. COMPARISON: No previous study is available for comparison at this time. FINDINGS: Heart size and pulmonary vasculature are within normal limits, and the lungs are clear, bilaterally. Probable calcified granuloma is seen in the left midlung, laterally. IMPRESSION: Unremarkable chest. Dictated by: Dictated on workstation # [id number]
--- NOTE | 2021-12-09 21:14 | Diagnostic Imaging Report ---
PROCEDURE: CT abdomen and pelvis without contrast. TECHNIQUE: Multiple contiguous axial images were obtained through the abdomen and pelvis without the use of intravenous contrast. Auto Exposure Controls were utilized during the CT exam to meet ALARA standards for radiation dose reduction. INDICATION: Hematemesis COMPARISON: 11/19/2021 FINDINGS: Gastroesophageal junction reveals no lesion. Unenhanced images of the liver and spleen are unremarkable. Gallbladder is surgically absent. There is no significant biliary ductal dilatation. There is no evidence of pancreatic, adrenal gland or renal lesion. There are prominent mesenteric lymph nodes similar to the previous study. No free fluid or organized fluid collection is identified. There is aortoiliac atherosclerotic calcification. Unenhanced urinary bladder is unremarkable in appearance. IMPRESSION: No evidence of acute abnormality or significant change when compared to previous exam. Dictated by: Dictated on workstation # [id number]
[2021-12-09 21:18] LABS: BILIRUBIN,URINE NEGATIVE (NEGATIVE); CLARITY,URINE SL CLOUDY; COLOR,URINE YELLOW; GLUCOSE, URINE (UA) NEGATIVE (NEGATIVE); KETONES,URINE NEGATIVE (NEGATIVE); LEUKOCYTE ESTERASE ,URINE TRACE (NEGATIVE); NITRITE,URINE NEGATIVE (NEGATIVE); PH,URINE 5.5 (5-9); PROTEIN,URINE NEGATIVE (NEGATIVE)
[2021-12-09 21:29] LABS: BACTERIA,URINE MODERATE /HPF
[2021-12-09] MEDS ORDERED: cefTRIAXone 1 GM PRE-MIX 50 ML IV STA (21:33)
[2021-12-09 22:20] VITALS: BP 185/75
[2021-12-09] MEDS ORDERED: LORazepam 0.5 MG (ATIVAN) TABLET PO PRN (22:30)
[2021-12-09] MEDS ORDERED: polyethylene glycoL POWDER 17 GM (MIRALAX) PACK PO PRN (22:30)
[2021-12-09] MEDS ORDERED: ONDANSETRON 4 MG/2 ML (SDV) Z0FRAN IV PRN (22:30)
[2021-12-09] MEDS ORDERED: diphenhydrAMINE 50 MG/ML INJ (BENADRYL) IVP PRN (22:30)
[2021-12-09] MEDS ORDERED: ANTACID SUSP 30 ML UDC (MYLANTA) PO PRN (22:30)
[2021-12-09] MEDS ORDERED: ACETAMINOPHEN 325 MG TABLET PO PRN (22:30)
[2021-12-09] MEDS ORDERED: diphenhydrAMINE 25 MG TAB (BENADRYL) PO PRN (22:30)
[2021-12-09] MEDS ORDERED: LACTULOSE SYRUP 10GM/15ML (ENULOSE) 30ML UDC PO PRN (22:30)
[2021-12-09] MEDS ORDERED: BISACODYL 10 MG SUPP (DULCOLAX) PR PRN (22:30)
[2021-12-09] MEDS ORDERED: morphine INJ 4 MG/ML 1 ML (VIAL/SYRINGE) IV PRN (22:30)
[2021-12-09] MEDS ORDERED: GOLYTELY POWDER 4000 ML BTL PO ONE (22:30)
[2021-12-09] MEDS ORDERED: MILK OF MAGNESIA 400 MG/5 ML 30 ML UDC PO PRN (22:30)
[2021-12-09] MEDS ORDERED: CALCIUM CARBONATE 500 MG (TUMS) TAB.CHEW PO PRN (22:30)
[2021-12-09] MEDS ORDERED: ONDANSETRON 4 MG (ZOFRAN) ORAL DISSOLVE TAB PO PRN (22:30)
[2021-12-09] MEDS: D5 NS 1000 ML IV SOLUTION 1,000 ML IV SCH (23:16)
[2021-12-10] VITALS (7 sets, daily range): BP systolic 130–200; BP diastolic 65–88
[2021-12-10] MEDS ORDERED: cloNIDine 0.1 MG (CATAPRES) TAB PO PRN (01:15)
[2021-12-10] MEDS ORDERED: cloNIDine 0.1 MG (CATAPRES) TAB PO ONE (01:15)
[2021-12-10] MEDS: inSUlin ASPART (NovoLOG) 1 UNIT/0.01 ML (CHARGE PER UNIT) SC SCH ×4 (05:47→21:19)
[2021-12-10 05:57] LABS: BASOPHILS # (AUTO) 0.1 10^3/uL (0.0-0.1); BASOPHILS % (AUTO) 1 % (0-10); EOSINOPHILS # (AUTO) 0.1 10^3/uL (0.0-0.3); EOSINOPHILS % (AUTO) 3 % (0-10); HEMATOCRIT 36 % (35-52); HEMOGLOBIN 11.5 g/dL (11.5-16.0); LYMPHOCYTES # (AUTO) 1.3 10^3/uL (1.0-4.0); LYMPHOCYTES % (AUTO) 28 % (12-44); MEAN CORPUSCULAR HEMOGLOBIN 27 pg (25-34); MEAN CORPUSCULAR HGB CONC 32 g/dL (32-36); MEAN CORPUSCULAR VOLUME 85 fL (80-99); MEAN PLATELET VOLUME 8.6 fL (9.0-12.2); MONOCYTES # (AUTO) 0.3 10^3/uL (0.0-1.0); MONOCYTES % (AUTO) 7 % (0-12); NEUTROPHILS # (AUTO) 2.7 10^3/uL (1.8-7.8); NEUTROPHILS % (AUTO) 60 % (42-75); PLATELET COUNT 210 10^3/uL (130-400); WHITE BLOOD COUNT 4.6 10^3/uL (4.3-11.0)
[2021-12-10 06:06] LABS: ALBUMIN 3.7 GM/DL (3.2-4.5); POTASSIUM 4.1 MMOL/L (3.6-5.0)
[2021-12-10 06:07] LABS: CALCIUM 8.8 MG/DL (8.5-10.1)
[2021-12-10 06:08] LABS: TOTAL PROTEIN 6.2 GM/DL (6.4-8.2)
[2021-12-10 06:10] LABS: BILIRUBIN,TOTAL 0.2 MG/DL (0.1-1.0)
[2021-12-10 06:12] LABS: CREATININE SERUM 0.68 MG/DL (0.60-1.30)
--- NOTE | 2021-12-10 07:32 | Consultation - Surgery ---
DAVID DAVIS 12/10/21 0732: History of Present Illness History of Present Illness Patient Consulted On(jelena/time) 12/10/21 07:31 Date Seen by Provider: Dec 10, 2021 Time Seen by Provider: 07:32 Reason for Visit: Hematemesis History of Present Illness Consult requested by Dr Bowden 81 yo Female with h/o of recent admission for bloody stools and generalized weakness on 11/25 and dementia presents with hematemesis x1 that occurred yesterday. Pt states that her emesis was streaked with blood and hasn't experienced another episode since. Pt is poor historian secondary to dementia. Pt denies abd pain, blood in stools, CP, SOB, weakness, n/v, and sweats. Allergies and Home Medications Allergies Coded Allergies: Penicillins (Unverified Allergy, Intermediate, Rash, 09/03/21) Sulfa (Sulfonamide Antibiotics) (Unverified Allergy, Intermediate, Rash, 09/03/21) Patient Home Medication List Home Medication List Reviewed: Yes Aspirin (Aspirin EC) 81 Mg Tablet.dr, 81 MG PO DAILY, (Reported) Entered as Reported by: SYLVIA PEREIRA on 11/26/21 1034 Calcium Carbonate (Calcium Carbonate) 600 Mg Calcium (1500 Mg) Tablet, 600 MG PO DAILY, (Reported) Entered as Reported by: SYLVIA PEREIRA on 11/26/21 1034 Cholestyramine/Aspartame (Prevalite Packet) 4 Gram Powd.pack, 4 GM PO BID Prescribed by: JAMES BOWDEN on 11/27/21 09 Diphenhydramine HCl (Diphenhydramine HCl) 25 Mg Capsule, 25 MG PO BID, (Reported) Entered as Reported by: ELIUD MADISON on 09/03/21 170 Fluticasone Propionate (Flonase Allergy Relief) 50 Mcg/Actuation King.susp, 1-2 SPRAY NSEACH DAILY PRN for CONGESTION, (Reported) Entered as Reported by: SYLVIA PEREIRA on 11/26/21 1034 Glimepiride (Glimepiride) 1 Mg Tablet, 1 MG PO BID, (Reported) Entered as Reported by: ELIUD MADISON on 09/03/21 170 Lisinopril (Lisinopril) 20 Mg Tablet, 20 MG PO DAILY Prescribed by: JAMES BOWDEN on 11/27/21910 Loperamide HCl (Loperamide) 2 Mg Capsule, 2 MG PO NEEDED PRN for DIARRHEA Prescribed by: JAMES BOWDEN on 11/27/21910 Meclizine HCl (Meclizine HCl) 25 Mg Tablet, 25 MG PO BID, (Reported) Entered as Reported by: ELIUD MADISON on 09/03/211706 Memantine HCl (Memantine HCl) 10 Mg Tablet, 10 MG PO BID, (Reported) Entered as Reported by: ELIUD MADISON on 09/03/211706 Metformin HCl (Metformin HCl) 1,000 Mg Tablet, 1,000 MG PO BID, (Reported) Entered as Reported by: SYLVIA PEREIRA on 11/26/21 103 Waves-3S/Dha/Epa/Fish Oil (Fish Oil Waves-3 Softgel) 980 Mg-253 Mg-647 Mg-1,400 Mg Capsule.dr, 1 EACH PO HS, (Reported) Entered as Reported by: ELIUD MADISON on 09/03/211706 Sodium Chloride (Sodium Chloride) 1 Gram Tab, 1 GM PO BID Prescribed by: JAMES BOWDEN on 11/27/21910 Past Hfyomhp-Mbuihs-Iddigm Hx Patient Social History Smoking Status: Former Smoker Type Used: Cigarettes Alcohol Use?: Yes Have you traveled recently?: No Surgeries History of Surgeries: Yes (SEE BELOW) Surgeries: Abdominal, Adenoidectomy, Gallbladder, Tonsillectomy, Tracheostomy Respiratory History of Respiratory Disorde: No (TRACH-LATER REMOVED AFTER TBI) Cardiovascular History of Cardiac Disorders: Yes Cardiac Disorders: High Cholesterol, Hypertension Neurological History of Neurological Disord: Yes Neurological Disorders: Traumatic Brain Injury, Vertigo 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 Genitourinary History of Genitourinary Disor: No Gastrointestinal History of Gastrointestinal Di: Yes (FEEDING TUBE-LATER REMOVED FOR TBI) Gastrointestinal Disorders: Chronic Diarrhea Musculoskeletal History of Musculoskeletal Dis: No Endocrine History of Endocrine Disorders: Yes Endocrine Disorders: Diabetes, Non-Insulin dep HEENT History of HEENT Disorders: Yes HEENT Disorders: Cataract Cancer History of Cancer: No Psychosocial History of Psychiatric Problem: No Integumentary History of Skin or Integumenta: No Blood Transfusions History of Blood Disorders: No Family Medical History Significant Family History: No Pertinent Family Hx Review of Systems-General Constitutional: No chills, No diaphoresis EENTM: No hoarseness, No mouth swelling Respiratory: No cough, No dyspnea on exertion Gastrointestinal: No abdominal pain, No jaundice Genitourinary: No decreased output, No discharge Musculoskeletal: No back pain, No gout Skin: No change in color, No change in hair/nails Psychiatric/Neurological: Denies Anxiety, Denies Depressed Physical Exam-General Problems Physical Exam Vital Signs Vital Signs - First Documented Capillary Refill : Less Than 3 Seconds General Appearance: WD/WN, no apparent distress HEENT: PERRL/EOMI, normal ENT inspection Neck: non-tender, supple Respiratory: no respiratory distress, no accessory muscle use Cardiovascular: normal peripheral pulses, no JVD Gastrointestinal: non tender, soft Back: normal inspection, no CVA tenderness Extremities: non-tender, normal inspection Neurologic/Psychiatric: alert, normal mood/affect Skin: normal color, warm/dry Lymphatic: no adenopathy Data Review Labs Laboratory Tests 12/09/21 20:25: White Blood Count 5.3, Red Blood Count 4.34, Hemoglobin 11.8, Hematocrit 37, Mean Corpuscular Volume 84, Mean Corpuscular Hemoglobin 27, Mean Corpuscular Hemoglobin Concent 32, Red Cell Distribution Width 14.2, Platelet Count 257, Mean Platelet Volume 8.7L, Immature Granulocyte % (Auto) 0, Neutrophils (%) (Auto) 57, Lymphocytes (%) (Auto) 31, Monocytes (%) (Auto) 8, Eosinophils (%) (Auto) 3, Basophils (%) (Auto) 1, Neutrophils # (Auto) 3.0, Lymphocytes # (Auto) 1.7, Monocytes # (Auto) 0.4, Eosinophils # (Auto) 0.2, Basophils # (Auto) 0.0, Immature Granulocyte # (Auto) 0.0, Prothrombin Time 12.8, INR Comment 0.9, Ac tivated Partial Thromboplast Time 28, Sodium Level 135, Potassium Level 4.3, Chloride Level 105, Carbon Dioxide Level 20L, Anion Gap 10, Blood Urea Nitrogen 11, Creatinine 0.74, Estimat Glomerular Filtration Rate 82, BUN/Creatinine Ratio 15, Glucose Level 107H, Calcium Level 9.5, Corrected Calcium 9.5, Total Bilirubin 0.3, Aspartate Amino Transf (AST/SGOT) 13, Alanine Aminotransferase (ALT/SGPT) 21, Alkaline Phosphatase 68, Troponin I < 0.028, Total Protein 6.7, Albumin 4.0, Amylase Level 41, Lipase 32, Serum Alcohol < 10 12/09/21 21:10: Urine Color YELLOW, Urine Clarity SL CLOUDY, Urine pH 5.5, Urine Specific [place] 1.010L, Urine Protein NEGATIVE, Urine Glucose (UA) NEGATIVE, Urine Ketones NEGATIVE, Urine Nitrite NEGATIVE, Urine Bilirubin NEGATIVE, Urine Urobilinogen 0.2, Urine Leukocyte Esterase TRACEH, Urine RBC (Auto) NEGATIVE, Urine RBC NONE, Urine WBC 5-10H, Urine Squamous Epithelial Cells 5-10, Urine Crystals NONE, Urine Bacteria MODERATEH, Urine Casts NONE, Urine Mucus NEGATIVE, Urine Culture Indicated YES 12/09/21 21:25: SARS-CoV-2 RNA (RT-PCR) Not Detected 12/10/21 05:44: Glucometer 140H 12/10/21 05:45: White Blood Count 4.6, Red Blood Count 4.21, Hemoglobin 11.5, Hematocrit 36, Mean Corpuscular Volume 85, Mean Corpuscular Hemoglobin 27, Mean Corpuscular Hemoglobin Concent 32, Red Cell Distribution Width 14.3, Platelet Count 210, Mean Platelet Volume 8.6L, Immature Granulocyte % (Auto) 0, Neutrophils (%) (Auto) 60, Lymphocytes (%) (Auto) 28, Monocytes (%) (Auto) 7, Eosinophils (%) (Auto) 3, Basophils (%) (Auto) 1, Neutrophils # (Auto) 2.7, Lymphocytes # (Auto) 1.3, Monocytes # (Auto) 0.3, Eosinophils # (Auto) 0.1, Basophils # (Auto) 0.1, Immature Granulocyte # (Auto) 0.0, Sodium Level 138, Potassium Level 4.1, Chloride Level 109H, Carbon Dioxide Level 17L, Anion Gap 12, Blood Urea Nitrogen 9, Creatinine 0.68, Estimat Glomerular Filtration Rate 89, BUN/Creatinine Ratio 13, Glucose Level 140H, Calcium Level 8.8, Corrected Calcium 9.0, Total Bilirubin 0.2, Aspartate Amino Transf (AST/SGOT) 13, Alanine Aminotransferase (ALT/SGPT) 20, Alkaline Phosphatase 63, Total Protein 6.2L, Albumin 3.7 Assessment/Plan Assessment/Plan Assessment/Plan Hematemesis Recent admission for bloody stools- 11/25 NPO Plan for EGD continue medical management Clinical Quality Measures DVT/VTE Risk/Contraindication: Contraindications-Pharm: Other *list below* Other: MAISHA ESPINOZAKEERTHI Juana DO 12/10/21 1302: History of Present Illness History of Present Illness History of Present Illness 81 year old female recentadmission for diarrhea and occult positive stools. Having hematemesis last night. bright red blood. Denies blood in stools. No abdominal pain. Denies fever sweats chils shortness of breath or chest pain. Allergies and Home Medications Allergies Coded Allergies: Penicillins (Unverified Allergy, Intermediate, Rash, 09/03/21) Sulfa (Sulfonamide Antibiotics) (Unverified Allergy, Intermediate, Rash, 09/03/21) Patient Home Medication List Home Medication List Reviewed: Yes Aspirin (Aspirin EC) 81 Mg Tablet.dr, 81 MG PO DAILY, (Reported) Entered as Reported by: SYLVIA PEREIRA on 11/26/21 1034 Calcium Carbonate (Calcium Carbonate) 600 Mg Calcium (1500 Mg) Tablet, 600 MG PO DAILY, (Reported) Entered as Reported by: SYLVIA PEREIRA on 11/26/21 1034 Cholestyramine/Aspartame (Prevalite Packet) 4 Gram Powd.pack, 4 GM PO BID Prescribed by: JAMES BOWDEN on 11/27/21 09 Diphenhydramine HCl (Diphenhydramine HCl) 25 Mg Capsule, 25 MG PO BID, (Reported) Entered as Reported by: ELIUD MADISON on 09/03/21 170 Fluticasone Propionate (Flonase Allergy Relief) 50 Mcg/Actuation King.susp, 1-2 SPRAY NSEACH DAILY PRN for CONGESTION, (Reported) Entered as Reported by: SYLVIA PEREIRA on 11/26/21 1034 Glimepiride (Glimepiride) 1 Mg Tablet, 1 MG PO BID, (Reported) Entered as Reported by: ELIUD MADISON on 09/03/21 170 Lisinopril (Lisinopril) 20 Mg Tablet, 20 MG PO DAILY Prescribed by: JAMES BOWDEN on 11/27/21 09 Loperamide HCl (Loperamide) 2 Mg Capsule, 2 MG PO NEEDED PRN for DIARRHEA Prescribed by: JAMES BOWDEN on 11/27/21 09 Meclizine HCl (Meclizine HCl) 25 Mg Tablet, 25 MG PO BID, (Reported) Entered as Reported by: ELIUD MADISON on 09/03/211706 Memantine HCl (Memantine HCl) 10 Mg Tablet, 10 MG PO BID, (Reported) Entered as Reported by: ELIUD MADISON on 09/03/211706 Metformin HCl (Metformin HCl) 1,000 Mg Tablet, 1,000 MG PO BID, (Reported) Entered as Reported by: SYLVIA PEREIRA on 11/26/21 1034 Waves-3S/Dha/Epa/Fish Oil (Fish Oil Waves-3 Softgel) 980 Mg-253 Mg-647 Mg-1,400 Mg Capsule.dr, 1 EACH PO HS, (Reported) Entered as Reported by: ELIUD MADISON on 09/03/211706 Sodium Chloride (Sodium Chloride) 1 Gram Tab, 1 GM PO BID Prescribed by: JAMES BOWDEN on 11/27/21 0911 Past Dzpmcvm-Kyqtig-Fsthge Hx Reviewed Nursing Assessment Reviewed/Agree w Nursing PMH: Yes Family Medical History Significant Family History: No Pertinent Family Hx Review of Systems-General Constitutional: No chills, No diaphoresis EENTM: No hoarseness, No mouth swelling Respiratory: No cough, No dyspnea on exertion; other (hematemesis) Gastrointestinal: No abdominal pain, No jaundice Genitourinary: No decreased output, No discharge Musculoskeletal: No back pain, No gout Skin: No change in color, No change in hair/nails Psychiatric/Neurological: Denies Anxiety, Denies Depressed All Other Systems Reviewed Negative Unless Noted: Yes (Negative excepted noted.) Physical Exam-General Problems Physical Exam General Appearance: WD/WN, no apparent distress HEENT: PERRL/EOMI, normal ENT inspection Neck: non-tender, supple Respiratory: chest non-tender, no respiratory distress, no accessory muscle use Cardiovascular: regular rate, rhythm, no JVD Gastrointestinal: non tender, soft Rectal: deferred Back: normal inspection, no CVA tenderness Extremities: non-tender, normal inspection Neurologic/Psychiatric: alert, normal mood/affect Skin: normal color, warm/dry Lymphatic: no adenopathy Assessment/Plan Assessment/Plan Assessment/Plan Hematemesis Recent admission for bloody stools- 11/25 Hx occult positive stools NPO Plan for EGD and colonoscopy all other indicated procedures. continue medical management Prep this morning and last night Supervisory-Addendum Brief Verification & Attestation Participated in pt care: history, MDM, physical Personally performed: exam, history, MDM, supervision of care Care discussed with: Medical Student Procedures: n/a Results interpretation: Verified all documentation Verification and Attestation of Medical Student E/M Service A medical student performed and documented this service in my presence. I reviewed and verified all information documented by the medical student and made modifications to such information, when appropriate. I personally performed the physical exam and medical decision making. Keerthi Espinoza, Dec 10, 2021,13:02 DAVID DAVIS Dec 10, 2021 07:32 KEERTHI ESPINOZA DO Dec 10, 2021 13:02
--- NOTE | 2021-12-10 09:25 | Physical Therapy Evaluation ---
PT Evaluation-General Medical Diagnosis Admission Date Dec 09, 2021 at 21:21 Medical Diagnosis: hematemesis Onset Date: Dec 09, 2021 Therapy Diagnosis Therapy Diagnosis: generalized weakness/debility Precautions Precautions/Isolations: Fall Prevention, Standard Precautions Weight Bear Status Right Lower Extremity: Right Full Weight Bearing Left Lower Extremity: Left Weight Bearing/Tolerated Referral Physician: Karla Reason for Referral: Evaluation/Treatment Medical History Pertinent Medical History: DM, HTN, Thrombosis Current History EMS secondary to vomiting blood Reviewed History: Yes Social History Home: Single Level Current Living Status: Spouse Prior Prior Level of Function SCALE: Activities may be completed with or without assistive devices. 1-Eeaiyxovud-cyqlvyr completes the activity by him/herself with no assistance from a helper. 5-Set-up or Clean-up Assistance-helper sets up or cleans up; patient completes activity. [place] assists only prior to or following the activity. 4-Supervision or Touching Assistance-helper provides verbal cues and/or touching/steadying and/or contact guard assistance as patient completes activity. Assistance may be provided throughout the activity or intermittently. 3-Partial/Moderate Assistance-helper does LESS THAN HALF the effort. [place] lifts, holds or supports trunk or limbs, but provides less than half the effort. 2-Substantial/Maximal Assistance-helper does MORE THAN HALF the effort. [place] lifts or holds trunk or limbs and provides more than half the effort. 0-Zsghqxcex-ecqpbo does ALL the effort. Patient does none of the effort to complete the activity. Or, the assistance of 2 or more helpers is required for the patient to complete the activity. If activity was not attempted, code reason: 7-Patient Refused. 9-Not Applicable-not attempted and the patient did not perform the activity before the current illness, exacerbation or injury. 10-Not Attempted due to Environmental Limitations-(lack of equipment, weather restraints, etc.). 88-Not Attempted due to Medical Conditions or Safety Concerns. Bed Mobility: 5 Transfers (B,C,W/C): 5 Gait: 5 Indoor Mobility (Ambulation): Needed Some Help Prior Devices Use: Walker PT Evaluation-Current Subjective Patient very alert and well known to this PT. Objective Patient Orientation: Normal For Age Attachments: Benítez Catheter, IV ROM/Strength ROM Lower Extremities bilateral LE WFL Strength Lower Extremities 3+/5 grossly bilateral LE Integumentary/Posture Bladder Incontinence: Benítez Cath Posture WFL Neuromuscular (Tone, Coordination, Reflexes) slightly diminished coordination due to TBI and weakness Sensory Vision: Wears Glasses Hearing: Functional Transfers Lying to Sitting/Side of Bed(Q: 3 Sit to Stand (QC): 3 Chair/Mue-lp-Iwxkf Xfer(QC): 3 Toilet Transfer (QC): 3 Gait Mode of Locomotion: Walk Anticipated Mode of Locomotion: Walk Walk 10 feet (QC): 4 Walk 50 ft with 2 Turns(QC): 4 Walk 150 ft (QC): 4 Distance: 250' Gait Assistive Device: FWW Comments/Gait Description functional gait sequence in hallway/difficulty with gait sequence in small space (step to) Balance Sitting Static: Normal Sitting Dynamic: Normal Standing Static: Good Standing Dynamic: Good Assessment/Needs 81 y.o. female, will benefit from skilled PT to address functional strength and mobility to improve current LOF to safely return to home with spouse at maximum LOF. Rehab Potential: Fair PT Blow Down Helper Goals Blow Down Helper Goals PT Blow Down Helper Goals Time Frame: Dec 21, 2021 Roll Left & Right (QC): 5 Sit to Lying (QC): 5 Lying-Sitting on Side/Bed(QC): 5 Sit to Stand (QC): 5 Chair/Pup-xb-Ufxvq Xfer(QC): 5 Toilet Transfer (QC): 5 Car Transfer (QC): 5 Walk 10 feet (QC): 5 Walk 50ft with 2 Turns (QC): 5 Walk 150 ft (QC): 5 PT Plan Problem List Problem List: Activity Tolerance, Functional Strength, Safety, Balance, Gait, Transfer, Bed Mobility Treatment/Plan Treatment Plan: Continue Plan of Care Treatment Plan: Bed Mobility, Education, Functional Activity Pat, Functional Strength, Gait, Safety, Therapeutic Exercise, Transfers Treatment Duration: Dec 21, 2021 Frequency: 6 times per week Estimated Hrs Per Day: .25 hour per day Patient and/or Family Agrees t: Yes Time/GCodes Time In: 725 Time Out: 743 Total Billed Treatment Time: 18 Total Billed Treatment 1 visit EVModC 18 min BAILEY CHÁVEZ PT Dec 10, 2021 09:25
[2021-12-10] MEDS: amLODIPine 5 MG (NORVASC) TAB PO SCH (09:49)
[2021-12-10] MEDS: PANTOPRAZOLE 40 MG (PROTONIX) VIAL IV SCH (09:49)
[2021-12-10] MEDS: DOCUSATE SODIUM 100 MG (COLACE) CAP PO SCH ×2 (09:52→21:00)
[2021-12-10] MEDS: SENNOSIDES 8.6 MG (SENOKOT) TAB PO SCH ×2 (09:52→21:00)
[2021-12-10] MEDS: BETHANECHOL 25 MG (URECHOLINE) TAB PO SCH ×3 (11:16→21:19)
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
--- NOTE | 2021-12-10 12:12 | Occupational Therapy Eval ---
OT Evaluation-General/PLF Medical Diagnosis Admission Date Dec 09, 2021 at 21:21 Medical Diagnosis: hematemesis Onset Date: Dec 09, 2021 Therapy Diagnosis Therapy Diagnosis: reduced strength, adl status Precautions Precautions/Isolations: Fall Prevention, Standard Precautions Referral Physician: Karla Larios Reason: Evaluation/Treatment Medical History Pertinent Medical History: DM, Dementia, HTN, Thrombosis Additional Medical History chronic diarrhea Current History Pt presents to ER with c/o vomiting blood. Per patient, she lives in a single story home with her spouse. Spouse reports he helps patient get in/out of shower, threading feet into LB clothing, and donning socks/shoes. Pt able to manage all other adls without assist. Pt's spouse does all iadls. She uses a walker at baseline. Reviewed History: Yes Social History Home: Single Level Current Living Status: Spouse ADL-Prior Level of Function SCALE: Activities may be completed with or without assistive devices. 0-Pplfvxgjoo-hkzxkhu completes the activity by him/herself with no assistance from a helper. 5-Set-up or Clean-up Assistance-helper sets up or cleans up; patient completes activity. [place] assists only prior to or following the activity. 4-Supervision or Touching Assistance-helper provides verbal cues and/or touching/steadying and/or contact guard assistance as patient completes activity. Assistance may be provided throughout the activity or intermittently. 3-Partial/Moderate Assistance-helper does LESS THAN HALF the effort. [place] lifts, holds or supports trunk or limbs, but provides less than half the effort. 2-Substantial/Maximal Assistance-helper does MORE THAN HALF the effort. [place] lifts or holds trunk or limbs and provides more than half the effort. 0-Podomlrak-pgecsr does ALL the effort. Patient does none of the effort to complete the activity. Or, the assistance of 2 or more helpers is required for the patient to complete the activity. If activity was not attempted, code reason: 7-Patient Refused. 9-Not Applicable-not attempted and the patient did not perform the activity before the current illness, exacerbation or injury. 10-Not Attempted due to Environmental Limitations-(lack of equipment, weather restraints, etc.). 88-Not Attempted due to Medical Conditions or Safety Concerns. Self Care: Needed Some Help Functional Cognition: Needed Some Help DME/Equipment: Bath Chair, Grab Bars, Shower Drive Self: No OT Current Status Subjective Pt denies pain, pleasant and agreeable to evaluation. Appearance Pt returned to sitting in recliner, all needs within reach, physician entering room at OT departure. Mental Status/Objective Patient Orientation: Person, Place, Situation Attachments: IV, Telemetry Current Glasses/Contacts: Yes Hearing Aids: No Dentures/Partials: No Hand Dominance: Right Upper Extremity ROM WFL Upper Extremity Strength 3+/5 grossly ADL-Treatment Eating (QC): 88 (NPO, pt likely set up assist) On/Off Footwear (QC): 1 (baseline) Toileting Hygiene (QC): 3 Pt sitting on commode at OT arrival. CGA to stand. Veronica care performed in standing with steadying assist and Min a for thoroughness. No clothing management performed as pt wearing hospital gown only. Pt likely SBA-CGA at this time for task. She ambulated ~5 feet back to chair with use of walker, SBA and min verbal cues for safety. Pt may benefit from short term OT to promote increased strength, endurance, and indep in adls in order to decrease burden of care on family. Education OT Patient Education: Correct positioning, Modified ADL techniques, Purpose of tx/functional activities, Safety issues, Transfer techniques Teaching Recipient: Patient, Family Teaching Methods: Discussion Response to Teaching: Verbalize Understanding, Return Demonstration, Reinforcement Needed OT Half-Way Goals [employer] Goals Time Frame: Dec 17, 2021 Eating (QC): 5 Oral Hygiene (QC): 5 Toileting Hygiene (QC): 4 Shower/Bathe Self (QC): 4 Upper Body Dressing (QC): 4 Lower Body Dressing (QC): 3 On/Off Footwear (QC): 2 1=Demonstrate adherence to instructed precautions during ADL tasks. 2=Patient will verbalize/demonstrate understanding of assistive devices/modifications for ADL. 3=Patient will improve strength/tolerance for activity to enable patient to p erform ADL's. OT Education/Plan Problem List/Assessment Assessment: Decreased Activ Tolerance, Decreased Safety Aware, Decreased UE Strength, Impaired Cognition, Impaired Funct Balance, Impaired Self-Care Skills Discharge Recommendations Plan/Recommendations: Continue POC Therapy Discharge Recommendati: Post Acute OT (Home health vs home with family support ) Treatment Plan/Plan of Care Treatment,Training & Education: Yes Patient would benefit from OT for education, treatment and training to promote independence in ADL's, mobility, safety and/or upper extremity function for ADL's. Plan of Care: ADL Retraining, Caregiver Training, Functional Mobility, Group Exercise/Act as Ind, UE Funct Exercise/Act Treatment Duration: Dec 17, 2021 Frequency: 3 times per week (3-5x/week ) Estimated Hrs Per Day: .25 hour per day Agreement: Yes Rehab Potential: Fair Time/GCodes Start Time: 11:47 Stop Time: 12:02 Total Time Billed (hr/min): 15 Billed Treatment Time 1 visit Dayna Leung OT Dec 10, 2021 12:12
[2021-12-10] MEDS ORDERED: LACTATED RINGERS 1,000 ML IV STA (12:59)
[2021-12-10] MEDS ORDERED: HURRICAINE EXT TUBE (BENZOCAINE) XX PRN (13:00)
[2021-12-10] MEDS ORDERED: LACTATED RINGERS 1,000 ML IV ONE (13:02)
[2021-12-10] MEDS ORDERED: PROPOFOL INJECTION 50 ML IV ONE (13:41)
[2021-12-10] MEDS ORDERED: MIDAZOLAM 2 MG/2 ML (VERSED) VIAL ONE (13:56)
--- NOTE | 2021-12-10 14:37 | Anesthesia-General Post-Op ---
MAC Patient Condition Mental Status/LOC: Same as Preop Cardiovascular: Satisfactory Nausea/Vomiting: Absent Respiratory: Satisfactory Pain: Controlled Complications: Absent Post Op Complications Complications None Follow Up Care/Instructions Patient Instructions None needed. Anesthesiology Discharge Order Discharge Order Patient is doing well, no complaints, stable vital signs, no apparent adverse anesthesia problems. No complications reported per nursing. MARYANNE MERCEDES CRNA Dec 10, 2021 14:37
--- NOTE | 2021-12-10 15:26 | Progress Note-Post Operative ---
Post-Operative Progess Note Surgeon (s)/Instrument Repair Supervisor (s) Surgeon KEERTHI ESPINOZA DO Instrument Repair Supervisor: na Pre-Operative Diagnosis hematemesis, hx occult postive stool Post-Operative Diagnosis ge ulcer, ascending colon polyp, hepatic flexure polyp, transverse colon mass near spenic flexure, rectosigmoid colon mass Procedure & Operative Findings Date of Procedure 12/10/21 Procedure Performed/Findings egd c biopsies, colonoscopy c snare polypectomy x 2, hot bx polypectomy x 1, cold biopsies of transverse colon mass splenic flexure c lorena inking proximal to mass, cold biopsies of rectosigmoid mass c lorena inking distal to mass. Anesthesia Type per inspector and hand packager Estimated Blood Loss Estimated blood loss (mL): scant Specimens/Packing Specimens Removed ascending colon polyp x 2, transverse colon polyp near hepatic flexure, transverse colon mass near splenic flexure, rectosigmoid colon mass, ge, antrum KEERTHI ESPINOZA DO Dec 10, 2021 15:26
[2021-12-10] MEDS: SUCRALFATE 1 GM (CARAFATE) TAB PO SCH ×2 (16:38→21:19)
[2021-12-10] MEDS ORDERED: NF-NACL1GT PO (17:03)
[2021-12-10] MEDS ORDERED: LOPE2CAP PO (17:03)
[2021-12-10] MEDS: D5 NS 1000 ML IV SOLUTION 1,000 ML IV SCH (21:19)
[2021-12-10] MEDS: cefTRIAXone 1 GM PRE-MIX 50 ML IV SCH (21:19)
--- NOTE | 2021-12-10 23:03 | OPERATIVE REPORT ---
DATE OF SERVICE: 12/10/2021 PREOPERATIVE DIAGNOSES: Hematemesis, history of occult positive stool. POSTOPERATIVE DIAGNOSES: Gastroesophageal ulcer, ascending colon polyp x2, hepatic flexure polyp, transverse colon mass near splenic flexure, rectosigmoid colon mass. PROCEDURES: EGD with biopsies, colonoscopy with snare polypectomy x2 and hot biopsy polypectomy x1, cold biopsy of transverse colon mass, splenic flexure with Grisel inking proximal to the mass, cold biopsies of rectosigmoid mass with Grisel inking distal to the mass. SURGEON: Keerthi Parks DO ANESTHESIA: Per MAC ARTIST. ESTIMATED BLOOD LOSS: Scant. COMPLICATIONS: None. INDICATIONS: The patient is a 81-year-old female with hematemesis and history of occult positive stool. She understands risks and benefits of procedure and wishes to proceed. Consent was signed in the chart. DESCRIPTION OF PROCEDURE: The patient was taken to endoscopy suite, placed in left lateral recumbent position. Timeout was performed. Scope was inserted in mouth, down the esophagus, stomach and into the duodenum without difficulty. No polyps, masses or ulcerations within the duodenum. Scope was slowly retracted back into the stomach where it was further insufflated. No polyps, masses or ulcerations within the stomach. Slight erythematous changes. Biopsy of the antrum was obtained. Scope was retroflexed noting no other pathology. Scope was returned to its normal position, slowly withdrawn to distal esophagus. Evidence of the GE ulceration present, which biopsy of the GE junction at the ulcer was obtained. Scope was then continuously slowly retracted back until completely removed, noting no other pathology. Digital rectal exam was performed. No palpable polyps, masses or ulcerations. Scope was inserted into the rectum and continued to be advanced through the rectosigmoid junction, a large mass was present, nonobstructing yet. Scope was able to be passed through this area and advanced all the way to the cecum without difficulty. Encountered another mass in the transverse colon around the splenic flexure area. Prep was adequate with irrigation and suction. Once in the cecum, the scope was then slowly retracted back. No polyps, masses or ulcerations in the cecum. In the ascending colon, there are 2 polyps were present, which snare polypectomy was performed. Scope was then continuously slowly retracted back into the hepatic flexure, larger polyp was present, which hot biopsy polypectomy had to be performed. Scope was then continuously slowly retracted back into the transverse colon, a large mass near the splenic flexure was present, which multiple cold biopsies were obtained. Grisel inking was performed proximal to the mass, 1 mL in two locations. For a total of 2 mL. Scope was then continuously retracted back. No polyps, masses or ulcerations within the descending colon or sigmoid. At the rectosigmoid junction, a large mass again was noted. Multiple cold biopsies were obtained. Grisel inking was tattooed in 1 mL in three locations for a total of 3 mL distal to the mass. Once in the rectum, scope was retroflexed noting no other pathology. Scope was returned to its normal position, slowly withdrawn until completely removed. The patient tolerated the procedure well without any complications. She was taken to recovery room in stable condition. RECOMMENDATIONS: The patient will follow up on pathology to discuss further treatment plan. The patient will need repeat colonoscopy pending results and risks/benefits. 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
[2021-12-11] VITALS (8 sets, daily range): BP systolic 132–171; BP diastolic 55–79
[2021-12-11] MEDS: MELATONIN 3 MG TABLET PO PRN ×2 (00:17→23:39)
[2021-12-11] MEDS: SUCRALFATE 1 GM (CARAFATE) TAB PO SCH ×4 (06:04→20:13)
[2021-12-11] MEDS: BETHANECHOL 25 MG (URECHOLINE) TAB PO SCH ×4 (06:04→20:13)
[2021-12-11] MEDS: inSUlin ASPART (NovoLOG) 1 UNIT/0.01 ML (CHARGE PER UNIT) SC SCH ×4 (06:04→20:13)
--- NOTE | 2021-12-11 07:21 | Progress Note - Surgery ---
SUSANDAVID 12/11/21 0721: Subjective Date Seen by a Provider: Dec 11, 2021 Time Seen by a Provider: 07:12 Subjective/Events-last exam Pt is resting comfortably in bed. Pt states that she has been having bowel movements and denies any blood in the stool. Pt has been tolerating clears. Pt does not have any complaints at this time. Pt denies n/v, hematemesis, abd pain, CP, SOB, and sweats. Review of Systems General: No Chills, No Night Sweats HEENT: No Head Aches, No Visual Changes Pulmonary: No Dyspnea, No Cough Cardiovascular: No: Chest Pain, Palpitations Gastrointestinal: No: Nausea, Vomiting, Abdominal Pain Genitourinary: No Dysuria, No Frequency Musculoskeletal: No: neck pain, shoulder pain Neurological: No: Weakness, Numbness Objective Exam Vital Signs Date Time Temp Pulse Resp B/P (MAP) Pulse Ox O2 Delivery O2 Flow Rate FiO2 12/11/21 04:45 36.8 103 18 165/79 (107) 93 Room Air 12/11/21 01:00 78 12/11/21 00:55 81 159/74 (102) 12/11/21 00:33 36.6 86 18 171/71 (104) 97 Room Air 12/10/21 20:30 99 Room Air 2.00 12/10/21 19:33 36.4 95 20 170/88 (115) 100 Room Air 12/10/21 19:00 96 12/10/21 16:00 35.7 81 18 146/84 (104) 94 Room Air 12/10/21 15:13 78 16 96 Room Air 12/10/21 12:28 78 12/10/21 12:07 36.0 79 16 139/65 (89) 99 Room Air 12/10/21 08:00 99 Room Air 2.00 12/10/21 08:00 35.5 77 16 149/67 (94) 96 Room Air 12/10/21 07:50 80 I & O 12/11/21 07:00 Intake Total 5400 ml Output Total 4200 ml Balance 1200 ml Capillary Refill : Less Than 3 Seconds General Appearance: No Apparent Distress, WD/WN HEENT: PERRL/EOMI, Normal ENT Inspection Neck: Full Range of Motion, Normal Inspection, Non Tender, Supple Respiratory: No Accessory Muscle Use, No Respiratory Distress Cardiovascular: No JVD, No Murmur, Normal Peripheral Pulses Gastrointestinal: non tender, soft Extremity: Normal Capillary Refill, Normal Inspection, Normal Range of Motion, Non Tender, No Calf Tenderness Neurologic/Psychiatric: Alert, Normal Mood/Affect Skin: Normal Color, Warm/Dry Lymphatic: No Adenopathy Results Lab Laboratory Tests 12/10/21 08:29: Glucometer 174H 12/10/21 11:01: Glucometer 175H 12/10/21 16:22: Glucometer 123H 12/10/21 20:32: Glucometer 185H 12/11/21 05:18: Glucometer 169H Microbiology 12/09/21 Urine Culture - Final, Complete NO GROWTH Assessment/Plan Assessment/Plan Assessment/Plan Hematemesis Recent admission for bloody stools- 11/25 Hx occult positive stools Colonic mass - pending pathology report Continue clear diet Pt had biopsies of colonic masses yesterday, awaiting pathology results Get labs this am Clinical Quality Measures DVT/VTE Risk/Contraindication: Contraindications-Pharm: Other *list below* Other: KEERTHI MEYERS DO 12/11/21 1710: Subjective Subjective/Events-last exam Patient states she is doing well. She is having bowel movements. No blood in the stools she states. She is tolerating diet. Denies nausea vomiting fever sweats chills shortness of breath or chest pain. Objective Exam General Appearance: No Apparent Distress, WD/WN HEENT: PERRL/EOMI, Normal ENT Inspection Neck: Full Range of Motion, Normal Inspection, Non Tender, Supple Respiratory: Chest Non Tender, No Accessory Muscle Use, No Respiratory Distress Cardiovascular: Regular Rate, Rhythm, No JVD Gastrointestinal: non tender, soft Extremity: Normal Inspection, Non Tender Neurologic/Psychiatric: Alert, Normal Mood/Affect Skin: Normal Color, Warm/Dry Lymphatic: No Adenopathy Assessment/Plan Assessment/Plan Assessment/Plan Hematemesis Recent admission for bloody stools- 11/25 Hx occult positive stools Colonic masses and polyp - pending pathology report ge ulcer advance diet Pt had biopsies of colonic masses yesterday, awaiting pathology results Get labs this am ct chest abd pelvis Dr. Schaffer appointment Thursday Supervisory-Addendum Brief Verification & Attestation Participated in pt care: history, MDM, physical Personally performed: exam, history, MDM, supervision of care Care discussed with: Medical Student Procedures: n/a Results interpretation: Verified all documentation Verification and Attestation of Medical Student E/M Service A medical student performed and documented this service in my presence. I reviewed and verified all information documented by the medical student and made modifications to such information, when appropriate. I personally performed the physical exam and medical decision making. Keerthi Espinoza, Dec 11, 2021,17:10 DAVID DAVIS Dec 11, 2021 07:21 KEERTHI ESPINOZA DO Dec 11, 2021 17:10
[2021-12-11] MEDS ORDERED: IOHEXOL 350 MG/ML 100 ML (OMNIPAQUE 350) VIAL IV ONE (07:30)
[2021-12-11] MEDS ORDERED: NS 100 ML (IVPB) BAG IV ONE (07:30)
[2021-12-11] MEDS ORDERED: CATHETER FLUSH 10 ML SYR IV PRN (07:30)
[2021-12-11] MEDS ORDERED: HOLD METFORMIN - RECEIVED CONTRAST 20 ML VIAL IV SCH (07:30)
--- NOTE | 2021-12-11 09:26 | Diagnostic Imaging Report ---
PROCEDURE: CT chest, abdomen, and pelvis with contrast. TECHNIQUE: Multiple contiguous axial images were obtained through the chest, abdomen, and pelvis after the administration of intravenous contrast. Auto Exposure Controls were utilized during the CT exam to meet ALARA standards for radiation dose reduction. INDICATION: Colon mass and hematemesis. Correlation is made with prior CT abdomen and pelvis study from 12/09/2021. CT CHEST: No axillary lymphadenopathy is identified. No mediastinal or hilar lymphadenopathy is identified. No pericardial or pleural fluid is detected. No pulmonary infiltrates, noncalcified nodules or masses are detected. IMPRESSION: Unremarkable CT of the chest. There is no evidence of thoracic lymphadenopathy or pulmonary metastatic disease. CT abdomen and pelvis: There is generalized low attenuation throughout the liver consistent with hepatic steatosis. No discrete liver mass is detected. The gallbladder is surgically absent. No biliary duct dilatation is seen. The pancreas and spleen are unremarkable. No adrenal mass is detected. Kidneys are unremarkable. There is no hydronephrosis. Aorta is heavily calcified but nonaneurysmal. No central retroperitoneal lymphadenopathy is seen. There are shotty lymph nodes in the central mesentery and central retroperitoneum but no pathologically enlarged nodes are seen. The small and large bowel loops are normal caliber without evidence of obstruction. No free fluid or fluid collection is seen. No definite pelvic lymphadenopathy is identified. Uterus is unremarkable. Bladder is decompressed. The bony structures are nonacute. IMPRESSION: 1. Hepatic steatosis. 2. No definite evidence of abdominal or pelvic lymphadenopathy or metastatic disease. Dictated by: Dictated on workstation # [id number]
[2021-12-11] MEDS: PANTOPRAZOLE 40 MG (PROTONIX) VIAL IV SCH (09:29)
[2021-12-11] MEDS: SENNOSIDES 8.6 MG (SENOKOT) TAB PO SCH ×2 (09:29→21:00)
[2021-12-11] MEDS: amLODIPine 5 MG (NORVASC) TAB PO SCH (09:29)
[2021-12-11] MEDS: DOCUSATE SODIUM 100 MG (COLACE) CAP PO SCH ×2 (09:29→20:13)
[2021-12-11 10:44] LABS: BASOPHILS % (AUTO) 1 % (0-10); EOSINOPHILS # (AUTO) 0.1 10^3/uL (0.0-0.3); EOSINOPHILS % (AUTO) 1 % (0-10); HEMATOCRIT 35 % (35-52); HEMOGLOBIN 11.5 g/dL (11.5-16.0); LYMPHOCYTES # (AUTO) 0.9 10^3/uL (1.0-4.0); LYMPHOCYTES % (AUTO) 18 % (12-44); MEAN CORPUSCULAR HEMOGLOBIN 27 pg (25-34); MEAN CORPUSCULAR HGB CONC 33 g/dL (32-36); MEAN CORPUSCULAR VOLUME 84 fL (80-99); MEAN PLATELET VOLUME 8.8 fL (9.0-12.2); MONOCYTES # (AUTO) 0.3 10^3/uL (0.0-1.0); MONOCYTES % (AUTO) 5 % (0-12); NEUTROPHILS # (AUTO) 3.7 10^3/uL (1.8-7.8); NEUTROPHILS % (AUTO) 74 % (42-75); PLATELET COUNT 261 10^3/uL (130-400)
[2021-12-11 10:53] LABS: ALBUMIN 3.8 GM/DL (3.2-4.5)
[2021-12-11 10:54] LABS: POTASSIUM 3.4 MMOL/L (3.6-5.0)
[2021-12-11 10:55] LABS: CALCIUM 8.9 MG/DL (8.5-10.1)
[2021-12-11 10:56] LABS: TOTAL PROTEIN 6.4 GM/DL (6.4-8.2)
[2021-12-11 10:58] LABS: BILIRUBIN,TOTAL 0.3 MG/DL (0.1-1.0)
[2021-12-11 11:00] LABS: CREATININE SERUM 0.78 MG/DL (0.60-1.30)
[2021-12-11] MEDS ORDERED: LOPERAMIDE 2 MG (IMODIUM) TABLET PO PRN (11:45)
[2021-12-11] MEDS ORDERED: NON-FORMULARY MEDICATION 1 EA EA (Fluticasone Propionate (Flonase Allergy Relief) 0 SPRAY) NSEACH PRN (11:45)
--- NOTE | 2021-12-11 11:51 | Progress Note ---
CARMINA FRY 12/11/21 1151: Subjective Date Seen by a Provider: Dec 11, 2021 Subjective/Events-last exam Mohini Martinez is a 81y/o F who is being seen for follow up due to hematemesis. Pt reports that she is no longer having any vomiting or abdominal pain. She did have 1 bloody stool yesterday but has not had any today. States that she would like to be started on a regular diet as she is very hungry. Says that she did have some dizziness today after getting off the CT table but that has resolved and she has had no further episodes. Review of Systems General: No Chills, No Other (fever) HEENT: No Head Aches, No Visual Changes Pulmonary: No Dyspnea, No Cough Cardiovascular: No: Chest Pain, Palpitations Gastrointestinal: No: Nausea, Vomiting, Abdominal Pain Genitourinary: No Dysuria, No Hematuria Musculoskeletal: No: neck pain, back pain Neurological: Other (dizziness); No: Weakness, Numbness Objective Exam Last Set of Vital Signs Vital Signs Date Time Temp Pulse Resp B/P (MAP) Pulse Ox O2 Delivery O2 Flow Rate FiO2 12/11/21 08:29 36.3 98 21 134/55 (81) 98 Room Air 12/10/21 20:30 2.00 Capillary Refill : Less Than 3 Seconds I&O Intake and Output 12/10/21 23:59 Intake Total 6200 ml Output Total 4350 ml Balance 1850 ml Intake Oral 5450 ml IV Total 750 ml Output Urine Total 4350 ml # Bowel Movements 19 General: Alert, No Acute Distress HEENT: PERRLA, EOMI Neck: Supple Lungs: Clear to Auscultation, Normal Air Movement Heart: No Murmurs, Other (tachycardic ) Abdomen: Soft, No Tenderness Extremities: Normal Pulses, Other (1-2/4 pedal edema) Psych/Mental Status: Mental Status NL, Mood NL Results Lab Laboratory Tests 12/10/21 16:22: Glucometer 123H 12/10/21 20:32: Glucometer 185H 12/11/21 05:18: Glucometer 169H 12/11/21 10:15: White Blood Count 5.0, Red Blood Count 4.21, Hemoglobin 11.5, Hematocrit 35, Me an Corpuscular Volume 84, Mean Corpuscular Hemoglobin 27, Mean Corpuscular Hemoglobin Concent 33, Red Cell Distribution Width 14.5, Platelet Count 261, Mean Platelet Volume 8.8L, Immature Granulocyte % (Auto) 0, Neutrophils (%) (Auto) 74, Lymphocytes (%) (Auto) 18, Monocytes (%) (Auto) 5, Eosinophils (%) (Auto) 1, Basophils (%) (Auto) 1, Neutrophils # (Auto) 3.7, Lymphocytes # (Auto) 0.9L, Monocytes # (Auto) 0.3, Eosinophils # (Auto) 0.1, Basophils # (Auto) 0.0, Immature Granulocyte # (Auto) 0.0, Sodium Level 135, Potassium Level 3.4L, Chloride Level 103, Carbon Dioxide Level 20L, Anion Gap 12, Blood Urea Nitrogen 4L, Creatinine 0.78, Estimat Glomerular Filtration Rate 77, BUN/Creatinine Ratio 5, Glucose Level 253H, Calcium Level 8.9, Corrected Calcium 9.1, Total Bilirubin 0.3, Aspartate Amino Transf (AST/SGOT) 14, Alanine Aminotransferase (ALT/SGPT) 25, Alkaline Phosphatase 69, Total Protein 6.4, Albumin 3.8 12/11/21 11:16: Glucometer 231H Microbiology 12/09/21 Urine Culture - Final, Complete NO GROWTH Assessment/Plan Assessment/Plan Assess & Plan/Chief Complaint Hematemesis -continue protonix and zofran -hgb currently at 11.5, it was around this level throughout her last admission earlier this month -followed by gen surg -EGD done yesterday, gastroesphageal ulcer found Colonic masses -colonoscopy done yesterday by gen surg -according to operative report ascending colon polyp x2, hepatic flexure polyp, transverse colon mass near splenic flexure, rectosigmoid colon mass were found -biopsies taken and sent to pathology, awaiting report HTN -continue amlodipine QD and clonidine PRN -start lisinopril -continue to monitor UTI Acute urinary retention -hoffman cath to be removed today -UA showed trace leukocyte esterase and moderate bacteria -Urinary culture had no growth, will stop rocephin -continue urecholine -monitor for any signs of urinary retention Diabetes mellitus type 2 -sliding scale insulin -start glimepiride -diabetic diet Dementia -continue home memantine DVT prophylaxis: SCDs and ambulate Code status: full code Clinical Quality Measures Admission Status Admission Dx Hematemesis -start protonix and zofran -hgb currently at 11.5, it was around this level throughout her last admission earlier this month -consult gen surg -clear liquid diet HTN -start amlodipine QD and clonidine PRN -on telemetry -continue to monitor UTI Acute urinary retention -hoffman cath has been placed -UA showed trace leukocyte esterase and moderate bacteria -start rocephin -start urecholine -urine culture in process Diabetes mellitus type 2 -sliding scale insulin -will need to be on diabetic diet when she is able to have solids Dementia -start home memantine DVT prophylaxis: SCDs and ambulate Code status: full code DVT/VTE Risk/Contraindication: Contraindications-Pharm: Other *list below* Other: MAYRA PALOMINO DO 12/11/213: Subjective Time Seen by a Provider: 10:00 Subjective/Events-last exam Pt is doing really well Bloody stool yesterday but no hematemesis Dizzy after the endoscopy but that resolved Heart rate is 100, BP is 165/75 Updated Elizabeth, her daughter Oncology appt is next week Review of Systems General: Fatigue, Malaise Objective Exam General: Alert, Oriented X3, Cooperative, No Acute Distress Lungs: Clear to Auscultation Heart: Regular Rate Neuro: Normal Gait, Normal Speech, Strength at 5/5 X4 Ext, Normal Tone Assessment/Plan Assessment/Plan Assess & Plan/Chief Complaint Monitor sugar and BP Supervisory-Addendum Brief Verification & Attestation Participated in pt care: history, MDM, physical Personally performed: exam, history, MDM, supervision of care Care discussed with: Medical Student Procedures: n/a Results interpretation: Verified all documentation Verification and Attestation of Medical Student E/M Service A medical student performed and documented this service in my presence. I reviewed and verified all information documented by the medical student and made modifications to such information, when appropriate. I personally performed the physical exam and medical decision making. Mayra Bowden, Dec 11, 2021,21:02 CARMINA FRY Dec 11, 2021 11:51 MAYRA BOWDEN DO Dec 11, 2021 21:03
--- NOTE | 2021-12-11 12:05 | Occupational Ther Daily Note ---
OT Current Status-Daily Note Subjective Pt is very excited that she is now back on a regular diet and will be getting "real food" for lunch. Appearance Pt returned to sitting in recliner, all needs within reach at OT departure. Mental Status/Objective Patient Orientation: Person, Situation Attachments: IV ADL-Treatment Therapy Code Descriptions/Definitions Functional [place] Measure: 0=Not Assessed/NA 4=Minimal Assistance 1=Total Assistance 5=Supervision or Setup 2=Maximal Assistance 6=Modified [place] 3=Moderate Assistance 7=Complete IndependenceSCALE: Activities may be completed with or without assistive devices. 0-Kwzrusuqwt-caqnmdi completes the activity by him/herself with no assistance from a helper. 5-Set-up or Clean-up Assistance-helper sets up or cleans up; patient completes activity. [place] assists only prior to or following the activity. 4-Supervision or Touching Assistance-helper provides verbal cues and/or touching/steadying and/or contact guard assistance as patient completes activity. Assistance may be provided throughout the activity or intermittently. 3-Partial/Moderate Assistance-helper does LESS THAN HALF the effort. [place] l ifts, holds or supports trunk or limbs, but provides less than half the effort. 2-Substantial/Maximal Assistance-helper does MORE THAN HALF the effort. [place] lifts or holds trunk or limbs and provides more than half the effort. 9-Rabtzgqbk-smjmfn does ALL the effort. Patient does none of the effort to complete the activity. Or, the assistance of 2 or more helpers is required for t he patient to complete the activity. If activity was not attempted, code reason: 7-Patient Refused. 9-Not Applicable-not attempted and the patient did not perform the activity before the current illness, exacerbation or injury. 10-Not Attempted due to Environmental Limitations-(lack of equipment, weather restraints, etc.). 88-Not Attempted due to Medical Conditions or Safety Concerns. Other Treatment Pt participated in standing dynamic activity with focus on promoting increased b alance, endurance, LE strength, and functional reaching needed during functional tasks. Decreased standing tolerance this date when compared to yesterday. Only able to tolerate standing for ~1 minute before requesting to sit and rest. While standing, pt reached in multiple planes slightly out of [place] (one hand remains on walker). Slightly unsteady on feet, thus needing steadying assist throughout activity. She reports fatigue. Pt may feel better after eating food. Education OT Patient Education: Correct positioning, Progress toward Goal/Update tx plan, Purpose of tx/functional activities, Safety issues, Transfer techniques Teaching Recipient: Patient Teaching Methods: Discussion Response to Teaching: Verbalize Understanding, Reinforcement Needed OT Cut Out Worker Goals [facility]iary Goals Time Frame: Dec 17, 2021 Eating (QC): 5 Oral Hygiene (QC): 5 Toileting Hygiene (QC): 4 Shower/Bathe Self (QC): 4 Upper Body Dressing (QC): 4 Lower Body Dressing (QC): 3 On/Off Footwear (QC): 2 1=Demonstrate adherence to instructed precautions during ADL tasks. 2=Patient will verbalize/demonstrate understanding of assistive devices/modifications for ADL. 3=Patient will improve strength/tolerance for activity to enable patient to perform ADL's. OT Education/Plan Problem List/Assessment Assessment: Decreased Activ Tolerance, Decreased Safety Aware, Impaired Cognition, Impaired Funct Balance, Impaired Self-Care Skills Discharge Recommendations Plan/Recommendations: Continue POC Treatment Plan/Plan of Care Treatment,Training & Education: Yes Patient would benefit from OT for education, treatment and training to promote independence in ADL's, mobility, safety and/or upper extremity function for ADL's. Plan of Care: ADL Retraining, Caregiver Training, Functional Mobility, Group Exercise/Act as Ind, UE Funct Exercise/Act Treatment Duration: Dec 17, 2021 Frequency: 3 times per week (3-5x/week ) Estimated Hrs Per Day: .25 hour per day Agreement: Yes Rehab Potential: Fair Time/GCodes Start Time: 11:47 Stop Time: 11:57 Total Time Billed (hr/min): 10 Billed Treatment Time 1 visit Dayna Anderson OT Dec 11, 2021 12:05
[2021-12-11] MEDS ORDERED: FLUTICASONE NASAL SPRAY (FLONASE) 16 GM BTL NS PRN (12:30)
[2021-12-11] MEDS ORDERED: diphenhydrAMINE 25 MG TAB (BENADRYL) PO PRN (12:30)
--- NOTE | 2021-12-11 15:19 | Physical Therapy Daily Note ---
PT Daily Note-Current Subjective Pt sitting in recliner with Sp present upon arrival. Pt agrees to PT stating she wants to walk. Pain Location: No Pain Reported Mental Status Patient Orientation: Person, Place Attachments: IV Transfers SCALE: Activities may be completed with or without assistive devices. 4-Wsvfmccxug-moebxso completes the activity by him/herself with no assistance from a helper. 5-Set-up or Clean-up Assistance-helper sets up or cleans up; patient completes activity. [place] assists only prior to or following the activity. 4-Supervision or Touching Assistance-helper provides verbal cues and/or touching/steadying and/or contact guard assistance as patient completes activity. Assistance may be provided throughout the activity or intermittently. 3-Partial/Moderate Assistance-helper does LESS THAN HALF the effort. [place] lifts, holds or supports trunk or limbs, but provides less than half the effort. 2-Substantial/Maximal Assistance-helper does MORE THAN HALF the effort. [place] lifts or holds trunk or limbs and provides more than half the effort. 0-Lktrxixgm-jlfvqq does ALL the effort. Patient does none of the effort to complete the activity. Or, the assistance of 2 or more helpers is required for the patient to complete the activity. If activity was not attempted, code reason: 7-Patient Refused. 9-Not Applicable-not attempted and the patient did not perform the activity before the current illness, exacerbation or injury. 10-Not Attempted due to Environmental Limitations-(lack of equipment, weather restraints, etc.). 88-Not Attempted due to Medical Conditions or Safety Concerns. Sit to Stand (QC): 3 Weight Bearing Right Lower Extremity: Right Full Weight Bearing Left Lower Extremity: Left Weight Bearing/Tolerated Gait Training Does the Patient Walk?: Yes Distance: 2' Gait Persons Needed: 1 Gait Assistive Device: FWW Pt demonstrates difficulty lifting B LE to intiate walking. VC for sequencing and safety but pt fatiguing fast and not able to lift legs for movement well. Exercises Seated Therapy Exercises: Ankle pumps, Long arc quads, Hip flexion, Hip abd/add, Glut set Seated Reps: 10 Treatments TF to standing and pt attempts amb. although not able to bean picker machine operator B LE well so pt returns to recliner and completes Seated EX for strengthening. Pt resting at end of tx with all needs met, call light in hand. Assessment Current Status: Fair Progress Difficulty initiating movement, pt reports legs feel heavy to move. PT Half-Way Goals Half-Way Goals PT Bilingual Social Worker Goals Time Frame: Dec 21, 2021 Roll Left & Right (QC): 5 Sit to Lying (QC): 5 Lying-Sitting on Side/Bed(QC): 5 Sit to Stand (QC): 5 Chair/Jum-xj-Qyzda Xfer(QC): 5 Toilet Transfer (QC): 5 Car Transfer (QC): 5 Walk 10 feet (QC): 5 Walk 50ft with 2 Turns (QC): 5 Walk 150 ft (QC): 5 PT Plan Problem List Problem List: Activity Tolerance, Functional Strength, Safety, Gait, Transfer Treatment/Plan Treatment Plan: Continue Plan of Care Treatment Plan: Bed Mobility, Education, Functional Activity Pat, Functional Strength, Gait, Safety, Therapeutic Exercise, Transfers Treatment Duration: Dec 21, 2021 Frequency: 6 times per week Estimated Hrs Per Day: .25 hour per day Patient and/or Family Agrees t: Yes Safety Risks/Education Patient Education: Gait Training, Transfer Techniques, Correct Positioning, Safety Issues Teaching Recipient: Patient Teaching Methods: Discussion Response to Teaching: Verbalize Understanding Time/GCodes Time In: 1425 Time Out: 1450 Total Billed Treatment Time: 25 Total Billed Treatment 1, EX (15m) & GT (10m) OFELIA ALEXANDER DRAWING INSTRUCTOR Dec 11, 2021 15:19
[2021-12-11] MEDS: GLIMEPIRIDE 1 MG (AMARYL) TAB PO SCH (17:06)
[2021-12-11] MEDS: MEMANTINE 10 MG (NAMENDA) TABLET PO SCH (20:13)
[2021-12-11] MEDS: cefTRIAXone 1 GM PRE-MIX 50 ML IV SCH (20:13)
[2021-12-11] MEDS ORDERED: MECLIZINE 25 MG (ANTIVERT) TAB PO PRN (21:00)
[2021-12-11] MEDS ORDERED: NON-FORMULARY MEDICATION 1 EA EA (Diphenhydramine HCl 25 MG) PO SCH (21:00)
[2021-12-11] MEDS: D5 NS 1000 ML IV SOLUTION 1,000 ML IV SCH (22:30)
[2021-12-12 05:00] VITALS: BP 167/74
[2021-12-12] MEDS: SUCRALFATE 1 GM (CARAFATE) TAB PO SCH ×2 (06:12→11:43)
[2021-12-12] MEDS: BETHANECHOL 25 MG (URECHOLINE) TAB PO SCH ×2 (06:12→11:43)
[2021-12-12] MEDS: inSUlin ASPART (NovoLOG) 1 UNIT/0.01 ML (CHARGE PER UNIT) SC SCH ×2 (06:13→11:44)
[2021-12-12 06:36] LABS: BASOPHILS % (AUTO) 1 % (0-10); EOSINOPHILS # (AUTO) 0.2 10^3/uL (0.0-0.3); EOSINOPHILS % (AUTO) 4 % (0-10); HEMATOCRIT 31 % (35-52); HEMOGLOBIN 10.3 g/dL (11.5-16.0); LYMPHOCYTES # (AUTO) 1.6 10^3/uL (1.0-4.0); LYMPHOCYTES % (AUTO) 35 % (12-44); MEAN CORPUSCULAR HEMOGLOBIN 28 pg (25-34); MEAN CORPUSCULAR HGB CONC 33 g/dL (32-36); MEAN CORPUSCULAR VOLUME 83 fL (80-99); MEAN PLATELET VOLUME 9.2 fL (9.0-12.2); MONOCYTES # (AUTO) 0.3 10^3/uL (0.0-1.0); MONOCYTES % (AUTO) 8 % (0-12); NEUTROPHILS # (AUTO) 2.3 10^3/uL (1.8-7.8); NEUTROPHILS % (AUTO) 52 % (42-75); PLATELET COUNT 255 10^3/uL (130-400); WHITE BLOOD COUNT 4.5 10^3/uL (4.3-11.0)
[2021-12-12 06:45] LABS: ALBUMIN 3.4 GM/DL (3.2-4.5)
[2021-12-12 06:46] LABS: POTASSIUM 3.7 MMOL/L (3.6-5.0)
[2021-12-12 06:47] LABS: CALCIUM 8.4 MG/DL (8.5-10.1)
[2021-12-12 06:48] LABS: TOTAL PROTEIN 5.6 GM/DL (6.4-8.2)
[2021-12-12 06:50] LABS: BILIRUBIN,TOTAL 0.2 MG/DL (0.1-1.0)
[2021-12-12 06:52] LABS: CREATININE SERUM 0.73 MG/DL (0.60-1.30)
[2021-12-12 08:42] VITALS: BP 182/77
[2021-12-12] MEDS: PANTOPRAZOLE 40 MG (PROTONIX) VIAL IV SCH (08:58)
[2021-12-12] MEDS: GLIMEPIRIDE 1 MG (AMARYL) TAB PO SCH (08:59)
[2021-12-12] MEDS: MEMANTINE 10 MG (NAMENDA) TABLET PO SCH (08:59)
[2021-12-12] MEDS: amLODIPine 5 MG (NORVASC) TAB PO SCH (08:59)
[2021-12-12] MEDS: DOCUSATE SODIUM 100 MG (COLACE) CAP PO SCH (08:59)
[2021-12-12] MEDS: SENNOSIDES 8.6 MG (SENOKOT) TAB PO SCH (08:59)
[2021-12-12] MEDS ORDERED: lisINopril 20 MG (PRINIVIL) TABLET PO SCH (09:00)
[2021-12-12] MEDS: D5 NS 1000 ML IV SOLUTION 1,000 ML IV SCH (09:42)
[2021-12-12] MEDS ORDERED: FUROSEMIDE 40 MG/4 ML INJ (LASIX) IVP ONE (10:45)
[2021-12-12 11:43] VITALS: BP 134/61
--- NOTE | 2021-12-12 11:57 | Occupational Ther Daily Note ---
OT Current Status-Daily Note Subjective Pt perseverating on fecal incontinence that occupied earlier in the morning. Several cues to redirect back to task. Appearance Pt left sitting in recliner, all needs within reach. LONG LINE TEAMSTER and spouse entering room at OT departure. Mental Status/Objective Patient Orientation: Person Attachments: IV ADL-Treatment Therapy Code Descriptions/Definitions Functional Jack Measure: 0=Not Assessed/NA 4=Minimal Assistance 1=Total Assistance 5=Supervision or Setup 2=Maximal Assistance 6=Modified Jack 3=Moderate Assistance 7=Complete IndependenceSCALE: Activities may be completed with or without assistive devices. 8-Dedabydvfk-jlsmjgj completes the activity by him/herself with no assistance from a helper. 5-Set-up or Clean-up Assistance-helper sets up or cleans up; patient completes activity. [place] assists only prior to or following the activity. 4-Supervision or Touching Assistance-helper provides verbal cues and/or touching/steadying and/or contact guard assistance as patient completes activity. Assistance may be provided throughout the activity or intermittently. 3-Partial/Moderate Assistance-helper does LESS THAN HALF the effort. [place] lifts, holds or supports trunk or limbs, but provides less than half the effort. 2-Substantial/Maximal Assistance-helper does MORE THAN HALF the effort. [place] lifts or holds trunk or limbs and provides more than half the effort. 7-Brzgpxvrn-ngzrhh does ALL the effort. Patient does none of the effort to complete the activity. Or, the assistance of 2 or more helpers is required for the patient to complete the activity. If activity was not attempted, code reason: 7-Patient Refused. 9-Not Applicable-not attempted and the patient did not perform the activity before the current illness, exacerbation or injury. 10-Not Attempted due to Environmental Limitations-(lack of equipment, weather restraints, etc.). 88-Not Attempted due to Medical Conditions or Safety Concerns. Other Treatment Pt sitting in chair at OT arrival. Pt perseverating on fecal incontinence that occupied earlier in the morning. Several cues to redirect back to task. She completed UE AROM exercises with goal to improve strength and endurance needed for functional tasks. Visual and verbal cues for correct technique and to slow speed of movement. She fatigues quickly and requires several short rest breaks. Poor coordination observed, especially when pt increases speed. 1 x10 all planes. Education OT Patient Education: Correct positioning, Energy conservation, Exercise program, Progress toward Goal/Update tx plan, Purpose of tx/functional activities, Safety issues Teaching Recipient: Patient Teaching Methods: Demonstration, Discussion Response to Teaching: Reinforcement Needed OT Signal Person Goals Senior Living Goals Time Frame: Dec 17, 2021 Eating (QC): 5 Oral Hygiene (QC): 5 Toileting Hygiene (QC): 4 Shower/Bathe Self (QC): 4 Upper Body Dressing (QC): 4 Lower Body Dressing (QC): 3 On/Off Footwear (QC): 2 1=Demonstrate adherence to instructed precautions during ADL tasks. 2=Patient will verbalize/demonstrate understanding of assistive devices/modifications for ADL. 3=Patient will improve strength/tolerance for activity to enable patient to perform ADL's. OT Education/Plan Problem List/Assessment Assessment: Decreased Activ Tolerance, Decreased Safety Aware, Decreased UE S trength, Impaired Cognition, Impaired Funct Balance, Impaired Self-Care Skills Discharge Recommendations Plan/Recommendations: Continue POC Therapy Discharge Recommendati: Post Acute OT Treatment Plan/Plan of Care Treatment,Training & Education: Yes Patient would benefit from OT for education, treatment and training to promote independence in ADL's, mobility, safety and/or upper extremity function for ADL's. Plan of Care: ADL Retraining, Caregiver Training, Functional Mobility, Group Exercise/Act as Ind, UE Funct Exercise/Act Treatment Duration: Dec 17, 2021 Frequency: 3 times per week (3-5x/week ) Estimated Hrs Per Day: .25 hour per day Agreement: Yes Rehab Potential: Fair Time/GCodes Start Time: 11:24 Stop Time: 11:35 Total Time Billed (hr/min): 11 Billed Treatment Time 1 visit EX Dayna Crandall OT Dec 12, 2021 11:57
--- NOTE | 2021-12-12 12:09 | Physical Therapy Daily Note ---
PT Daily Note-Current Subjective Patient agrees to PT. FAmily present. Transfers SCALE: Activities may be completed with or without assistive devices. 7-Rhyowyqbvq-wheqxum completes the activity by him/herself with no assistance from a helper. 5-Set-up or Clean-up Assistance-helper sets up or cleans up; patient completes activity. [place] assists only prior to or following the activity. 4-Supervision or Touching Assistance-helper provides verbal cues and/or touching/steadying and/or contact guard assistance as patient completes activity. Assistance may be provided throughout the activity or intermittently. 3-Partial/Moderate Assistance-helper does LESS THAN HALF the effort. [place] lifts, holds or supports trunk or limbs, but provides less than half the effort. 2-Substantial/Maximal Assistance-helper does MORE THAN HALF the effort. [place] lifts or holds trunk or limbs and provides more than half the effort. 6-Jfccczwmi-dolqdd does ALL the effort. Patient does none of the effort to complete the activity. Or, the assistance of 2 or more helpers is required for the patient to complete the activity. If activity was not attempted, code reason: 7-Patient Refused. 9-Not Applicable-not attempted and the patient did not perform the activity before the current illness, exacerbation or injury. 10-Not Attempted due to Environmental Limitations-(lack of equipment, weather restraints, etc.). 88-Not Attempted due to Medical Conditions or Safety Concerns. Sit to Stand (QC): 3 VC's for body placement in FWW with noted extended UE's with use Weight Bearing Right Lower Extremity: Right Full Weight Bearing Left Lower Extremity: Left Weight Bearing/Tolerated Gait Training Distance: 300' Walk 10 feet (QC): 4 Walk 50 ft with 2 Turns(QC): 4 Walk 150 ft (QC): 4 Gait Assistive Device: FWW functional gait sequence with 1 standing recovery period due to fatigue. Exercises Seated Therapy Exercises: Ankle pumps, Long arc quads, Hip flexion Seated Reps: 15 (x 2 sets) Assessment Dependent assist to don YFN hose. Patient does fatigue with minimal activity. Spouse assist with all ADL's prior. PT Correction Goals Correction Goals PT Lead Javascript Developer Goals Time Frame: Dec 21, 2021 Roll Left & Right (QC): 5 Sit to Lying (QC): 5 Lying-Sitting on Side/Bed(QC): 5 Sit to Stand (QC): 5 Chair/Qtc-aj-Dmvlk Xfer(QC): 5 Toilet Transfer (QC): 5 Car Transfer (QC): 5 Walk 10 feet (QC): 5 Walk 50ft with 2 Turns (QC): 5 Walk 150 ft (QC): 5 PT Plan Treatment/Plan Treatment Plan: Continue Plan of Care Treatment Plan: Bed Mobility, Education, Functional Activity Pat, Functional Strength, Gait, Safety, Therapeutic Exercise, Transfers Treatment Duration: Dec 21, 2021 Frequency: 6 times per week Estimated Hrs Per Day: .25 hour per day Patient and/or Family Agrees t: Yes Time/GCodes Time In: 1025 Time Out: 1049 Total Billed Treatment Time: 24 Total Billed Treatment 1 visit GT 13 min EX 11 min BAILEY CHÁVEZ PT Dec 12, 2021 12:09
--- NOTE | 2021-12-12 12:11 | Discharge Summary ---
Diagnosis/Chief Complaint Date of Admission Dec 09, 2021 at 21:21 Date of Discharge Discharge Date: Dec 12, 2021 Discharge Diagnosis Admission Dx Hematemesis -start protonix and zofran -hgb currently at 11.5, it was around this level throughout her last admission earlier this month -consult gen surg -clear liquid diet HTN -start amlodipine QD and clonidine PRN -on telemetry -continue to monitor UTI Acute urinary retention -hoffman cath has been placed -UA showed trace leukocyte esterase and moderate bacteria -start rocephin -start urecholine -urine culture in process Diabetes mellitus type 2 -sliding scale insulin -will need to be on diabetic diet when she is able to have solids Dementia -start home memantine DVT prophylaxis: SCDs and ambulate Code status: full code Reason Hospital Visit Chief complaint: Hematemesis with melena HPI: This is a 81yoWF clinic patient of mine who presented to the ER with hemate mesis. Labs stable but bloody stools continue and they had to delay the colonoscopy as an outpatient so the decision was made to admit for colon prep and monitor delirium, Discharge Summary Discharge Physical Examination Allergies: Coded Allergies: Penicillins (Unverified Allergy, Intermediate, Rash, 09/03/21) Sulfa (Sulfonamide Antibiotics) (Unverified Allergy, Intermediate, Rash, 09/03/21) Vitals & I&Os Vital Signs Date Time Temp Pulse Resp B/P (MAP) Pulse Ox O2 Delivery O2 Flow Rate FiO2 12/12/21 13:09 36.4 88 20 134/61 95 Room Air 2.00 Hospital Course Was the Problem List Reviewed?: Yes Mohini Martinez is a 81y/o F who was admitted on 12/10 for hematemesis and bloody stools. General surgery was consulted. EGD and colonoscopy were done. She was found to have a gastroesphageal ulcer on EGD and ascending colon polyp x2, hepatic flexure polyp, transverse colon mass near splenic flexure, rectosigmoid colon mass were found on colonoscopy. Biopsies were done and sent to pathology, awaiting pathology report. Hgb has been stable throughout stay. UA was done that showed trace leukocyte esterase and moderate bacteria. She was started on rocephin. UA returned on 12/11 with no growth. She also experienced acute urinary retention. Hoffman catheter was placed. Removed on 12/11, able to void w/o issue at the moment. Currently taking urecholine. She has a hx of dementia and has been experiencing episodes of delirium, especially at night. Legs had increased edema today, given 40mg Lasix via IV. Her able to walk and perform other ADLs has decreased since being admitted. She will be moved down to inpt rehab today to receive therapy. CARMINA FRY Labs (last 24 hrs) Laboratory Tests 12/09/21 20:25: White Blood Count 5.3, Red Blood Count 4.34, Hemoglobin 11.8, Hematocrit 37, Mean Corpuscular Volume 84, Mean Corpuscular Hemoglobin 27, Mean Corpuscular Hemoglobin Concent 32, Red Cell Distribution Width 14.2, Platelet Count 257, Mean Platelet Volume 8.7L, Immature Granulocyte % (Auto) 0, Neutrophils (%) (Auto) 57, Lymphocytes (%) (Auto) 31, Monocytes (%) (Auto) 8, Eosinophils (%) (Auto) 3, Basophils (%) (Auto) 1, Neutrophils # (Auto) 3.0, Lymphocytes # (Auto) 1.7, Monocytes # (Auto) 0.4, Eosinophils # (Auto) 0.2, Basophils # (Auto) 0.0, Immature Granulocyte # (Auto) 0.0, Prothrombin Time 12.8, INR Comment 0.9, Activated Partial Thromboplast Time 28, Sodium Level 135, Potassium Level 4.3, Chloride Level 105, Carbon Dioxide Level 20L, Anion Gap 10, Blood Urea Nitrogen 11, Creatinine 0.74, Estimat Glomerular Filtration Rate 82, BUN/Creatinine Ratio 15, Glucose Level 107H, Calcium Level 9.5, Corrected Calcium 9.5, Total Bilirubin 0.3, Aspartate Amino Transf (AST/SGOT) 13, Alanine Aminotransferase (ALT/SGPT) 21, Alkaline Phosphatase 68, Troponin I < 0.028, Total Protein 6.7, Albumin 4.0, Amylase Level 41, Lipase 32, Serum Alcohol < 10 12/09/21 21:10: Urine Color YELLOW, Urine Clarity SL CLOUDY, Urine pH 5.5, Urine Specific [place] 1.010L, Urine Protein NEGATIVE, Urine Glucose (UA) NEGATIVE, Urine Ketones NEGATIVE, Urine Nitrite NEGATIVE, Urine Bilirubin NEGATIVE, Urine Urobilinogen 0.2, Urine Leukocyte Esterase TRACEH, Urine RBC (Auto) NEGATIVE, Urine RBC NONE, Urine WBC 5-10H, Urine Squamous Epithelial Cells 5-10, Urine Crystals NONE, Urine Bacteria MODERATEH, Urine Casts NONE, Urine Mucus NEGATIVE, Urine Culture Indicated YES 12/09/21 21:21: Lab Scanned Report Referred Lab Report 12/09/21 21:25: SARS-CoV-2 RNA (RT-PCR) Not Detected 12/10/21 05:44: Glucometer 140H 12/10/21 05:45: White Blood Count 4.6, Red Blood Count 4.21, Hemoglobin 11.5, Hematocrit 36, Mean Corpuscular Volume 85, Mean Corpuscular Hemoglobin 27, Mean Corpuscular Hemoglobin Concent 32, Red Cell Distribution Width 14.3, Platelet Count 210, Mean Platelet Volume 8.6L, Immature Granulocyte % (Auto) 0, Neutrophils (%) (Auto) 60, Lymphocytes (%) (Auto) 28, Monocytes (%) (Auto) 7, Eosinophils (%) (Auto) 3, Basophils (%) (Auto) 1, Neutrophils # (Auto) 2.7, Lymphocytes # (Auto) 1.3, Monocytes # (Auto) 0.3, Eosinophils # (Auto) 0.1, Basophils # (Auto) 0.1, Immature Granulocyte # (Auto) 0.0, Sodium Level 138, Potassium Level 4.1, Chloride Level 109H, Carbon Dioxide Level 17L, Anion Gap 12, Blood Urea Nitrogen 9, Creatinine 0.68, Estimat Glomerular Filtration Rate 89, BUN/Creatinine Ratio 13, Glucose Level 140H, Calcium Level 8.8, Corrected Calcium 9.0, Total Bilirubin 0.2, Aspartate Amino Transf (AST/SGOT) 13, Alanine Aminotransferase (ALT/SGPT) 20, Alkaline Phosphatase 63, Total Protein 6.2L, Albumin 3.7 12/10/21 08:29: Glucometer 174H 12/10/21 11:01: Glucometer 175H 12/10/21 16:22: Glucometer 123H 12/10/21 20:32: Glucometer 185H 12/11/21 05:18: Glucometer 169H 12/11/21 10:15: White Blood Count 5.0, Red Blood Count 4.21, Hemoglobin 11.5, Hematocrit 35, Mean Corpuscular Volume 84, Mean Corpuscular Hemoglobin 27, Mean Corpuscular Hemoglobin Concent 33, Red Cell Distribution Width 14.5, Platelet Count 261, Mean Platelet Volume 8.8L, Immature Granulocyte % (Auto) 0, Neutrophils (%) (Auto) 74, Lymphocytes (%) (Auto) 18, Monocytes (%) (Auto) 5, Eosinophils (%) (Auto) 1, Basophils (%) (Auto) 1, Neutrophils # (Auto) 3.7, Lymphocytes # (Auto) 0.9L, Monocytes # (Auto) 0.3, Eosinophils # (Auto) 0.1, Basophils # (Auto) 0.0, Immature Granulocyte # (Auto) 0.0, Sodium Level 135, Potassium Level 3.4L, Chloride Level 103, Carbon Dioxide Level 20L, Anion Gap 12, Blood Urea Nitrogen 4L, Creatinine 0.78, Estimat Glomerular Filtration Rate 77, BUN/Creatinine Ratio 5, Glucose Level 253H, Calcium Level 8.9, Corrected Calcium 9.1, Total Bilirubin 0.3, Aspartate Amino Transf (AST/SGOT) 14, Alanine Aminotransferase (ALT/SGPT) 25, Alkaline Phosphatase 69, Total Protein 6.4, Albumin 3.8, Carcinoembryonic Antigen 2.5 12/11/21 11:16: Glucometer 231H 12/11/21 15:39: Glucometer 161H 12/11/21 20:05: Glucometer 193H 12/12/21 05:21: Glucometer 176H 12/12/21 06:27: White Blood Count 4.5, Red Blood Count 3.72L, Hemoglobin 10.3L, Hematocrit 31L, Mean Corpuscular Volume 83, Mean Corpuscular Hemoglobin 28, Mean Corpuscular Hemoglobin Concent 33, Red Cell Distribution Width 14.2, Platelet Count 255, Mean Platelet Volume 9.2, Immature Granulocyte % (Auto) 0, Neutrophils (%) (Auto) 52, Lymphocytes (%) (Auto) 35, Monocytes (%) (Auto) 8, Eosinophils (%) (Auto) 4, Basophils (%) (Auto) 1, Neutrophils # (Auto) 2.3, Lymphocytes # (Auto) 1.6, Monocytes # (Auto) 0.3, Eosinophils # (Auto) 0.2, Basophils # (Auto) 0.0, Immature Granulocyte # (Auto) 0.0, Sodium Level 136, Potassium Level 3.7, Chloride Level 107, Carbon Dioxide Level 19L, Anion Gap 10, Blood Urea Nitrogen 5L, Creatinine 0.73, Estimat Glomerular Filtration Rate 84, BUN/Creatinine Ratio 7, Glucose Level 177H, Calcium Level 8.4L, Corrected Calcium 8.9, Total Bilirubin 0.2, Aspartate Amino Transf (AST/SGOT) 13, Alanine Aminotransferase (ALT/SGPT) 19, Alkaline Phosphatase 58, Total Protein 5.6L, Albumin 3.4 12/12/21 11:35: Glucometer 214H 12/12/21 15:23: Glucometer 140H Microbiology 12/09/21 Urine Culture - Final, Complete NO GROWTH Pending Labs Microbiology Date/Time Source Procedure Growth Status 12/09/21 21:10 Urine Clean Catch Urine Culture - Final NO GROWTH Complete Laboratory Tests 12/09/21 20:25: White Blood Count 5.3, Red Blood Count 4.34, Hemoglobin 11.8, Hematocrit 37, Mean Corpuscular Volume 84, Mean Corpuscular Hemoglobin 27, Mean Corpuscular Hemoglobin Concent 32, Red Cell Distribution Width 14.2, Platelet Count 257, Mean Platelet Volume 8.7, Immature Granulocyte % (Auto) 0, Neutrophils (%) (Auto) 57, Lymphocytes (%) (Auto) 31, Monocytes (%) (Auto) 8, Eosinophils (%) (Auto) 3, Basophils (%) (Auto) 1, Neutrophils # (Auto) 3.0, Lymphocytes # (Auto) 1.7, Monocytes # (Auto) 0.4, Eosinophils # (Auto) 0.2, Basophils # (Auto) 0.0, Immature Granulocyte # (Auto) 0.0, Prothrombin Time 12.8, INR Comment 0.9, Activated Partial Thromboplast Time 28, Sodium Level 135, Potassium Level 4.3, Chloride Level 105, Carbon Dioxide Level 20, Anion Gap 10, Blood Urea Nitrogen 11, Creatinine 0.74, Estimat Glomerular Filtration Rate 82, BUN/Creatinine Ratio 15, Glucose Level 107, Calcium Level 9.5, Corrected Calcium 9.5, Total Bilirubin 0.3, Aspartate Amino Transf (AST/SGOT) 13, Alanine Aminotransferase (ALT/SGPT) 21, Alkaline Phosphatase 68, Troponin I < 0.028, Total Protein 6.7, Albumin 4.0, Amylase Level 41, Lipase 32, Serum Alcohol < 10 12/09/21 21:10: Urine Color YELLOW, Urine Clarity SL CLOUDY, Urine pH 5.5, Urine Specific [place] 1.010, Urine Protein NEGATIVE, Urine Glucose (UA) NEGATIVE, Urine Ketones NEGATIVE, Urine Nitrite NEGATIVE, Urine Bilirubin NEGATIVE, Urine Urobilinogen 0.2, Urine Leukocyte Esterase TRACE, Urine RBC (Auto) NEGATIVE, Urine RBC NONE, Urine WBC 5-10, Urine Squamous Epithelial Cells 5-10, Urine Crystals NONE, Urine Bacteria MODERATE, Urine Casts NONE, Urine Mucus NEGATIVE, Urine Culture Indicated YES 12/09/21 21:21: Lab Scanned Report Referred Lab Report 12/09/21 21:25: SARS-CoV-2 RNA (RT-PCR) Not Detected 12/10/21 05:44: Glucometer 140 12/10/21 05:45: White Blood Count 4.6, Red Blood Count 4.21, Hemoglobin 11.5, Hematocrit 36, Mean Corpuscular Volume 85, Mean Corpuscular Hemoglobin 27, Mean Corpuscular Hemoglobin Concent 32, Red Cell Distribution Width 14.3, Platelet Count 210, [place] Platelet Volume 8.6, Immature Granulocyte % (Auto) 0, Neutrophils (%) (Auto) 60, Lymphocytes (%) (Auto) 28, Monocytes (%) (Auto) 7, Eosinophils (%) (Auto) 3, Basophils (%) (Auto) 1, Neutrophils # (Auto) 2.7, Lymphocytes # (Auto) 1.3, Monocytes # (Auto) 0.3, Eosinophils # (Auto) 0.1, Basophils # (Auto) 0.1, Immature Granulocyte # (Auto) 0.0, Sodium Level 138, Potassium Level 4.1, Chloride Level 109, Carbon Dioxide Level 17, Anion Gap 12, Blood Urea Nitrogen 9, Creatinine 0.68, Estimat Glomerular Filtration Rate 89, BUN/Creatinine Ratio 13, Glucose Level 140, Calcium Level 8.8, Corrected Calcium 9.0, Total Bilirubin 0.2, Aspartate Amino Transf (AST/SGOT) 13, Alanine Aminotransferase (ALT/SGPT) 20, Alkaline Phosphatase 63, Total Protein 6.2, Albumin 3.7 12/10/21 08:29: Glucometer 174 12/10/21 11:01: Glucometer 175 12/10/21 16:22: Glucometer 123 12/10/21 20:32: Glucometer 185 12/11/21 05:18: Glucometer 169 12/11/21 10:15: White Blood Count 5.0, Red Blood Count 4.21, Hemoglobin 11.5, Hematocrit 35, Mean Corpuscular Volume 84, Mean Corpuscular Hemoglobin 27, Mean Corpuscular Hemoglobin Concent 33, Red Cell Distribution Width 14.5, Platelet Count 261, Mean Platelet Volume 8.8, Immature Granulocyte % (Auto) 0, Neutrophils (%) (Auto) 74, Lymphocytes (%) (Auto) 18, Monocytes (%) (Auto) 5, Eosinophils (%) (Auto) 1, Basophils (%) (Auto) 1, Neutrophils # (Auto) 3.7, Lymphocytes # (Auto) 0.9, Monocytes # (Auto) 0.3, Eosinophils # (Auto) 0.1, Basophils # (Auto) 0.0, Immature Granulocyte # (Auto) 0.0, Sodium Level 135, Potassium Level 3.4, Chloride Level 103, Carbon Dioxide Level 20, Anion Gap 12, Blood Urea Nitrogen 4, Creatinine 0.78, Estimat Glomerular Filtration Rate 77, BUN/Creatinine Ratio 5, Glucose Level 253, Calcium Level 8.9, Corrected Calcium 9.1, Total Bilirubin 0.3, Aspartate Amino Transf (AST/SGOT) 14, Alanine Aminotransferase (ALT/SGPT) 25, Alkaline Phosphatase 69, Total Protein 6.4, Albumin 3.8, Carcinoembryonic Antigen 2.5 12/11/21 11:16: Glucometer 231 12/11/21 15:39: Glucometer 161 12/11/21 20:05: Glucometer 193 12/12/21 05:21: Glucometer 176 12/12/21 06:27: White Blood Count 4.5, Red Blood Count 3.72, Hemoglobin 10.3, Hematocrit 31, Mean Corpuscular Volume 83, Mean Corpuscular Hemoglobin 28, Mean Corpuscular Hemoglobin Concent 33, Red Cell Distribution Width 14.2, Platelet Count 255, Mean Platelet Volume 9.2, Immature Granulocyte % (Auto) 0, Neutrophils (%) (Auto) 52, Lymphocytes (%) (Auto) 35, Monocytes (%) (Auto) 8, Eosinophils (%) (Auto) 4, Basophils (%) (Auto) 1, Neutrophils # (Auto) 2.3, Lymphocytes # (Auto) 1.6, Monocytes # (Auto) 0.3, Eosinophils # (Auto) 0.2, Basophils # (Auto) 0.0, Immature Granulocyte # (Auto) 0.0, Sodium Level 136, Potassium Level 3.7, Ch loride Level 107, Carbon Dioxide Level 19, Anion Gap 10, Blood Urea Nitrogen 5, Creatinine 0.73, Estimat Glomerular Filtration Rate 84, BUN/Creatinine Ratio 7, Glucose Level 177, Calcium Level 8.4, Corrected Calcium 8.9, Total Bilirubin 0.2, Aspartate Amino Transf (AST/SGOT) 13, Alanine Aminotransferase (ALT/SGPT) 19, Alkaline Phosphatase 58, Total Protein 5.6, Albumin 3.4 12/12/21 11:35: Glucometer 214 12/12/21 15:23: Glucometer 140 Discharge Home Medications: Active Scripts Active Lisinopril 20 Mg Tablet 20 Mg PO DAILY Reported Sodium Chloride 1 Gram Tab 1 Gm PO BID Loperamide (Loperamide HCl) 2 Mg Capsule 2 Mg PO QID PRN Flonase Allergy Relief (Fluticasone Propionate) 50 Mcg/Actuation [place].susp 1-2 [place] NSEACH DAILY PRN Metformin HCl 1,000 Mg Tablet 1,000 Mg PO BID Calcium Carbonate 600 Mg Calcium (1500 Mg) Tablet 600 Mg PO DAILY Aspirin EC (Aspirin) 81 Mg Tablet. 81 Mg PO DAILY Memantine HCl 10 Mg Tablet 10 Mg PO BID Glimepiride 1 Mg Tablet 1 Mg PO BID Diphenhydramine HCl 25 Mg Capsule 25 Mg PO BID Fish Oil [place]-3 Softgel ([place]-3S/Dha/Epa/Fish Oil) 980 Mg-253 Mg-647 Mg-1,400 Mg Capsule.dr 1 Each PO BID Meclizine HCl 25 Mg Tablet 25 Mg PO BID Instructions to patient/family Please see electronic discharge instructions given to patient. Diagnosis/Problems Diagnosis/Problems (1) Hematemesis Status: Acute (2) GI bleed Clinical Quality Measures DVT/VTE Risk/Contraindication: Contraindications-Pharm: Other *list below* Other: JAMES PALOMINO DO Dec 12, 2021 12:11
[2021-12-12 13:09] VITALS: BP 134/61
--- NOTE | 2021-12-12 13:18 | Progress Note ---
Subjective Date Seen by a Provider: Dec 12, 2021 Time Seen by a Provider: 10:30 Objective Exam Last Set of Vital Signs Vital Signs Date Time Temp Pulse Resp B/P (MAP) Pulse Ox O2 Delivery O2 Flow Rate FiO2 12/12/21 13:09 36.4 88 20 134/61 95 Room Air 2.00 Capillary Refill : Less Than 3 Seconds I&O Intake and Output 12/11/21 23:59 Intake Total 2400 ml Output Total 1650 ml Balance 750 ml Intake Oral 2400 ml Output Urine Total 1650 ml # Voids 8 # Bowel Movements 5 Results Lab Laboratory Tests 12/11/21 15:39: Glucometer 161H 12/11/21 20:05: Glucometer 193H 12/12/21 05:21: Glucometer 176H 12/12/21 06:27: White Blood Count 4.5, Red Blood Count 3.72L, Hemoglobin 10.3L, Hematocrit 31L, Mean Corpuscular Volume 83, Mean Corpuscular Hemoglobin 28, Mean Corpuscular Hemoglobin Concent 33, Red Cell Distribution Width 14.2, Platelet Count 255, Mean Platelet Volume 9.2, Immature Granulocyte % (Auto) 0, Neutrophils (%) (Auto) 52, Lymphocytes (%) (Auto) 35, Monocytes (%) (Auto) 8, Eosinophils (%) (Auto) 4, Basophils (%) (Auto) 1, Neutrophils # (Auto) 2.3, Lymphocytes # (Auto) 1.6, Monocytes # (Auto) 0.3, Eosinophils # (Auto) 0.2, Basophils # (Auto) 0.0, Immature Granulocyte # (Auto) 0.0, Sodium Level 136, Potassium Level 3.7, Chloride Level 107, Carbon Dioxide Level 19L, Anion Gap 10, Blood Urea Nitrogen 5L, Creatinine 0.73, Estimat Glomerular Filtration Rate 84, BUN/Creatinine Ratio 7, Glucose Level 177H, Calcium Level 8.4L, Corrected Calcium 8.9, Total Bilirubin 0.2, Aspartate Amino Transf (AST/SGOT) 13, Alanine Aminotransferase (ALT/SGPT) 19, Alkaline Phosphatase 58, Total Protein 5.6L, Albumin 3.4 12/12/21 11:35: Glucometer 214H Microbiology 12/09/21 Urine Culture - Final, Complete NO GROWTH Clinical Quality Measures DVT/VTE Risk/Contraindication: Contraindications-Pharm: Other *list below* Other: ALVA SIERRA Dec 12, 2021 13:18
--- NOTE | 2021-12-12 13:45 | Progress Note ---
CARMINA FRY 12/12/21 1345: Progress Note Mohini Martinez is a 81y/o F who was admitted on 12/10 for hematemesis and bloody stools. General surgery was consulted. EGD and colonoscopy were done. She was found to have a gastroesphageal ulcer on EGD and ascending colon polyp x2, hepatic flexure polyp, transverse colon mass near splenic flexure, rectosigmoid colon mass were found on colonoscopy. Biopsies were done and sent to pathology, awaiting pathology report. Hgb has been stable throughout stay. UA was done that showed trace leukocyte esterase and moderate bacteria. She was started on rocephin. UA returned on 12/11 with no growth. She also experienced acute urinary retention. Benítez catheter was placed. Removed on 12/11, able to void w/o issue at the moment. Currently taking urecholine. She has a hx of dementia and has been experiencing episodes of delirium, especially at night. Legs had increased edema today, given 40mg Lasix via IV. Her able to walk and perform other ADLs has decreased since being admitted. She will be moved down to inpt rehab today to receive therapy. MAYRA BOWDEN DO 12/12/210: Supervisory-Addendum Brief Verification & Attestation Participated in pt care: history, MDM, physical Personally performed: exam, history, MDM, supervision of care Care discussed with: Medical Student Procedures: n/a Results interpretation: Verified all documentation Verification and Attestation of Medical Student E/M Service A medical student performed and documented this service in my presence. I reviewed and verified all information documented by the medical student and made modifications to such information, when appropriate. I personally performed the physical exam and medical decision making. Mayra Bowden, Dec 12, 2021,21:30 CARMINA FRY Dec 12, 2021 13:45 MAYRA BOWDEN DO Dec 12, 2021 21:30
== END 2021-12-12 13:35 | DRG 393 ==
LOC: EDUNIT# 20:17 → ER 20:19 → 4TH 21:21
PROVIDERS: ADMIT Internal Medicine; ATTEND Internal Medicine
PROC: 0DB48ZX Excision of Esophagogastric Junction, Via Natural or Artificial Opening Endoscopic, Diagnostic (ICD-10-PCS; principal; 2021-12-09)
PROC: 0DB68ZX Excision of Stomach, Via Natural or Artificial Opening Endoscopic, Diagnostic (ICD-10-PCS; 2021-12-09)
PROC: 0DBK8ZX Excision of Ascending Colon, Via Natural or Artificial Opening Endoscopic, Diagnostic (ICD-10-PCS; 2021-12-09)
PROC: 0DBL8ZX Excision of Transverse Colon, Via Natural or Artificial Opening Endoscopic, Diagnostic (ICD-10-PCS; 2021-12-09)
PROC: 0DBN8ZX Excision of Sigmoid Colon, Via Natural or Artificial Opening Endoscopic, Diagnostic (ICD-10-PCS; 2021-12-09)
PROC: 0DBL8ZX Excision of Transverse Colon, Via Natural or Artificial Opening Endoscopic, Diagnostic (ICD-10-PCS; 2021-12-09)
DX: D12.3 Benign neoplasm of transverse colon (principal); K25.4 Chronic or unspecified gastric ulcer with hemorrhage; N39.0 Urinary tract infection, site not specified; R33.9 Retention of urine, unspecified; D12.2 Benign neoplasm of ascending colon; F03.90 Unspecified dementia, unspecified severity, without behavioral disturbance, psychotic disturbance, mood disturbance, and anxiety; E78.00 Pure hypercholesterolemia, unspecified; Z20.822 Contact with and (suspected) exposure to COVID-19; I10 Essential (primary) hypertension; E11.9 Type 2 diabetes mellitus without complications; Z87.891 Personal history of nicotine dependence; Z87.820 Personal history of traumatic brain injury; Z79.82 Long term (current) use of aspirin; Z79.84 Long term (current) use of oral hypoglycemic drugs; Z79.899 Other long term (current) drug therapy
CPT/HCPCS: 36415; 71045; 71260; 74176; 74177; 80053; 80320; 81000; 82150; 82378; 82947; 83690; 84484; 85025; 85027; 85610; 85730; 87088; 87636; 93041

== ENCOUNTER 2021-12-12 11:23 | Inpatient (IN) | payer MEDICARE ==
[~2021-12-12] VITALS: Ht 157.5 cm; Wt 93.5 kg
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
[2021-12-12] MEDS ORDERED: BISACODYL 10 MG SUPP (DULCOLAX) PR PRN ×2 (12:15→17:00)
[2021-12-12] MEDS ORDERED: ACETAMINOPHEN 325 MG TABLET PO PRN ×2 (12:15→17:00)
[2021-12-12] MEDS ORDERED: FLEET ENEMA ADULT 1 EA BTL PR PRN (12:15)
[2021-12-12] MEDS ORDERED: DOCUSATE SODIUM 100 MG (COLACE) CAP PO PRN (12:15)
[2021-12-12] MEDS ORDERED: LACTULOSE SYRUP 10GM/15ML (ENULOSE) 30ML UDC PO PRN ×2 (12:15→17:00)
[2021-12-12] MEDS ORDERED: diphenhydrAMINE 25 MG TAB (BENADRYL) PO PRN ×2 (12:15→17:00)
[2021-12-12] MEDS ORDERED: MELATONIN 3 MG TABLET PO PRN ×2 (12:15→17:00)
[2021-12-12] MEDS ORDERED: ALPRAZolam 0.25 MG (XANAX) TAB PO PRN (12:15)
[2021-12-12] MEDS ORDERED: ONDANSETRON 4 MG (ZOFRAN) ORAL DISSOLVE TAB PO PRN ×2 (12:15→17:00)
[2021-12-12] MEDS ORDERED: CALCIUM CARBONATE 500 MG (TUMS) TAB.CHEW PO PRN ×2 (12:15→17:00)
[2021-12-12] MEDS ORDERED: guaiFENesin/CODEINE (ROBITUSSIN AC) 10ML UDC PO PRN (12:15)
[2021-12-12] MEDS ORDERED: LOPERAMIDE 2 MG (IMODIUM) TABLET PO PRN ×2 (12:15→17:00)
--- NOTE | 2021-12-12 14:24 | Physical Therapy Evaluation ---
PT Evaluation-General Medical Diagnosis Admission Date 12/12/2021 Medical Diagnosis: GI bleed/weakness Onset Date: Dec 12, 2021 Therapy Diagnosis Therapy Diagnosis: Gait deficit, strength deficit. Precautions Precautions/Isolations: Fall Prevention Weight Bear Status Right Lower Extremity: Right Full Weight Bearing Left Lower Extremity: Left Full Weight Bearing Referral Physician: Dr. Acosta Reason for Referral: Evaluation/Treatment Medical History Pertinent Medical History: DM, Dementia, HTN, Thrombosis Social History Home: Single Level Current Living Status: Spouse Entry Into Home: Stairs With Railing PT Steps Into Home: 3 Prior Prior Level of Function SCALE: Activities may be completed with or without assistive devices. 2-Neumzzwfdd-jqsfbhu completes the activity by him/herself with no assistance from a helper. 5-Set-up or Clean-up Assistance-helper sets up or cleans up; patient completes activity. [place] assists only prior to or following the activity. 4-Supervision or Touching Assistance-helper provides verbal cues and/or touching/steadying and/or contact guard assistance as patient completes activity. Assistance may be provided throughout the activity or intermittently. 3-Partial/Moderate Assistance-helper does LESS THAN HALF the effort. [place] lifts, holds or supports trunk or limbs, but provides less than half the effort. 2-Substantial/Maximal Assistance-helper does MORE THAN HALF the effort. [place] lifts or holds trunk or limbs and provides more than half the effort. 7-Zjlmzfsek-urcyqi does ALL the effort. Patient does none of the effort to complete the activity. Or, the assistance of 2 or more helpers is required for the patient to complete the activity. If activity was not attempted, code reason: 7-Patient Refused. 9-Not Applicable-not attempted and the patient did not perform the activity before the current illness, exacerbation or injury. 10-Not Attempted due to Environmental Limitations-(lack of equipment, weather restraints, etc.). 88-Not Attempted due to Medical Conditions or Safety Concerns. Bed Mobility: 6 Transfers (B,C,W/C): 6 Gait: 6 Stairs: 6 Indoor Mobility (Ambulation): Independent Stairs: Independent Prior Devices Use: Walker PT Evaluation-Current Subjective Patient sitting in chair with in the room upon PT arrival, agreeable to treatment. Rates pain at 0/10 currently. Objective Patient Orientation: Person, Place, Time, Situation ROM/Strength ROM Lower Extremities WFLs bilateral LEs Strength Lower Extremities 3+/5 bilaterally all planes Sensory Vision: Wears Glasses Hearing: Hearing Aid/Aides Sensation Right Lower Extremit: Intact Sensation Left Lower Extremity: Intact Transfers Roll Left & Right (QC): 4 Sit to Lying (QC): 4 Lying to Sitting/Side of Bed(Q: 4 Sit to Stand (QC): 4 Chair/Xor-mb-Jzewh Xfer(QC): 4 Toilet Transfer (QC): 4 Car Transfer (QC): 4 Gait Does the Patient Walk?: Yes Mode of Locomotion: Walk Anticipated Mode of Locomotion: Walk Walk 10 feet (QC): 5 Walk 50 ft with 2 Turns(QC): 5 Walk 150 ft (QC): 5 Walking 10ft/uneven surface-QC: 4 Distance: 250 feet Gait Assistive Device: FWW Wheelchair Training Does the Pt Use a Wheelchair?: No Wheel 50 ft with 2 turns (QC): 9 Wheel 150 ft (QC): 9 Stairs #of Steps: 4 1 Step (curb) (QC): 3 4 Steps (QC): 3 12 Steps (QC): 88 Balance Sitting Static: Normal Sitting Dynamic: Good Standing Static: Fair Standing Dynamic: Fair Picking up an Object (QC): 4 Special Test Comments Tinetti Assessment/Needs Patient tolerated treatment well. Demonstrates SBA/Min A for all bed mobility and transfers. Patient requires min A the first time she attempts to perform sit to stand and was unable to generate enough force to stand requiring min A fo r full sit to stand. Educated on using the UEs to assist with sit to stand transfer and then was able to perform with CGA. Patient ambulates 250 feet with FWW, with SBA and verbal cues for path, progression, posture and safety. Patient performs functional mobility testing and training including Tinetti assessment. Patient co-treated with OT as the patient requires additional as sistance with balance during dynamic and static standing functional activities. Patient also demonstrates minimal issues with processing and performing tasks with more than 1-2 parts. Speech will further evaluate and progress treatment as needed. Patient performs LE therapeutic exercise of AP, LAQs, hamstring curls, hip abd/add, Marching x 20 each bilaterally. Patient performed Nu Step level 1 with UE/LEs x 10 minutes. Patient ambulates 75 feet back to her room with FWW, with SBA. Patient in chair post treatment with all needs met, nursing notified, call light in hand, and in the room. Rehab Potential: Good Post Rehab Potential-Barriers: Cognition Equipment Needs unsure at this time. PT Fdc Goals Check Weigher Goals PT Fdc Goals Time Frame: Jan 04, 2022 Roll Left & Right (QC): 6 Sit to Lying (QC): 6 Lying-Sitting on Side/Bed(QC): 6 Sit to Stand (QC): 6 Chair/Udv-zx-Njpjx Xfer(QC): 6 Toilet Transfer (QC): 6 Car Transfer (QC): 6 Does the Patient Walk: Yes Walk 10 feet (QC): 6 Walk 50ft with 2 Turns (QC): 6 Walk 150 ft (QC): 6 Walking 10ft on Uneven Surface: 6 1 Step (curb) (QC): 6 4 Steps (QC): 6 12 Steps (QC): 4 Picking up an Object (QC): 6 Does the Pt use WC or Scooter?: No Wheel 50 feet with 2 turns (QC: 9 Wheel 150 feet: 9 PT Plan Problem List Problem List: Activity Tolerance, Functional Strength, Safety, Balance, Gait, Transfer, Bed Mobility, ROM Treatment/Plan Treatment Plan: Continue Plan of Care Treatment Plan: Bed Mobility, Education, Functional Activity Pat, Functional Strength, Group Therapy, Gait, Safety, Therapeutic Exercise, Transfers Treatment Duration: Jan 24, 2022 Frequency: At least 5 of 7 days/Wk (IRF) Estimated Hrs Per Day: 1.5 hours per day Patient and/or Family Agrees t: Yes Safety Risks/Education Patient Education: Gait Training, Transfer Techniques, Steps Teaching Recipient: Patient, Family Teaching Methods: Demonstration, Discussion Response to Teaching: Verbalize Understanding, Return Demonstration Time/GCodes Time In: 1345 Time Out: 1515 Total Billed Treatment Time: 90 Total Billed Treatment Visit, Sarah Bender Ex, FA (2) MAUREEN DÍAZ PT Dec 12, 2021 14:24
--- NOTE | 2021-12-12 15:00 | Occupational Therapy Eval ---
OT Evaluation-General/PLF Medical Diagnosis Admission Date Dec 09, 2021 Medical Diagnosis: GI bleed/weakness Onset Date: Dec 12, 2021 Therapy Diagnosis Therapy Diagnosis: reduced adl status Precautions Precautions/Isolations: Fall Prevention, Standard Precautions, Pressure Ulcer Referral Physician: Dr. Acosta Referral Reason: Evaluation/Treatment Medical History Pertinent Medical History: DM, Dementia, HTN, Thrombosis Current History Pt presents to ER with c/o vomiting blood. Per patient, she lives in a single story home with her spouse. Spouse reports he helps patient get in/out of shower, threading feet into LB clothing, and donning socks/shoes. Pt able to manage all other adls without assist. Pt's spouse does all iadls. She uses a walker at baseline. Reviewed History: Yes Social History Home: Single Level Current Living Status: Spouse Entry Into Home: Stairs With Railing Steps Into Home: 3 ADL-Prior Level of Function SCALE: Activities may be completed with or without assistive devices. 1-Kylebmyiou-nyqjjlz completes the activity by him/herself with no assistance from a helper. 5-Set-up or Clean-up Assistance-helper sets up or cleans up; patient completes activity. [place] assists only prior to or following the activity. 4-Supervision or Touching Assistance-helper provides verbal cues and/or touching/steadying and/or contact guard assistance as patient completes activity. Assistance may be provided throughout the activity or intermittently. 3-Partial/Moderate Assistance-helper does LESS THAN HALF the effort. [place] lifts, holds or supports trunk or limbs, but provides less than half the effort. 2-Substantial/Maximal Assistance-helper does MORE THAN HALF the effort. [place] lifts or holds trunk or limbs and provides more than half the effort. 6-Mbwtrgsbk-fqojnx does ALL the effort. Patient does none of the effort to complete the activity. Or, the assistance of 2 or more helpers is required for the patient to complete the activity. If activity was not attempted, code reason: 7-Patient Refused. 9-Not Applicable-not attempted and the patient did not perform the activity before the current illness, exacerbation or injury. 10-Not Attempted due to Environmental Limitations-(lack of equipment, weather restraints, etc.). 88-Not Attempted due to Medical Conditions or Safety Concerns. Self Care: Needed Some Help Functional Cognition: Needed Some Help DME/Equipment: Bath Chair, Grab Bars, Shower Drive Self: No OT Current Status Subjective Pt denies pain, agreeable to evaluation. Still perseverating on fecal incontinence she had earlier in the morning. Co-treat with PT for part of treatment secondary to poor endurance, fatigue, and need of 2 skilled clinicians to progress indep with adls and functional transfers. Mental Status/Objective Patient Orientation: Person, Place, Situation Attachments: Telemetry Current Glasses/Contacts: Yes Hearing Aids: No Dentures/Partials: No Hand Dominance: Right Upper Extremity ROM WFL Upper Extremity Coordination slightly impaired with bilateral integration tasks. Upper Extremity Strength 3+/5 grossly ADL-Treatment Eating (QC): 5 (per clinical judgment) Oral Hygiene (QC): 4 (CGA) Shower/Bathe Self (QC): 3 Upper Body Dressing (QC): 3 Lower Body Dressing (QC): 3 (baseline) On/Off Footwear (QC): 1 (baseline) Toileting Hygiene (QC): 3 Shower performed; majority completed in sitting. Pt stood only briefly to wash facundo area/buttocks with Intermittent CGA for safety. Cues to keep one hand on grab bar and alternate as needed. Cue to initiate use of soap and to wash feet. Pt able to reach down to bilateral ankles, but unable to reach feet. She reports she normally just "let's the soapy water run down to her toes." Clothing donned seated on shower bench. Poor problem solving and sequencing exhibited when d onning bra, thus needed assist to position, place UE's through straps and fasten clasps. Pt able to don shirt with set up assist. Max a to thread BLE's into brief, pt able to thread into shorts with extra time. Steadying assist required as she stood to pull clothing up to waist. Again, cues to keep at least 1 hand on the grab bar. Dependent to don bilateral socks but this is baseline. Pt stood at sink for grooming tasks, CGA-min a for safety/balance needed. Other Treatments Pt ambulated throughout unit with CGA-Min a. Cues for improved walker management/safety as pt has tendency to push walker too far forward. Short seated rest breaks needed throughout adls and functional activities secondary to fatigue/impaired activity tolerance. Education OT Patient Education: Correct positioning, Energy conservation, Modified ADL techniques, Purpose of tx/functional activities, Rehab process, Safety issues, Transfer techniques Teaching Recipient: Patient Teaching Methods: Demonstration, Discussion Response to Teaching: Verbalize Understanding, Return Demonstration, Reinforcement Needed OT Short Term Goals Short Term Goals Time Frame: Dec 19, 2021 Eatin Oral hygiene: 5 Toileting hygiene: 4 Shower/bathe self: 4 Upper body dressin Lower body dressin Putting on/taking off footwear: 2 OT Detention Goals Occupational Health And Safety Manager Goals Time Frame: Dec 25, 2021 Eating (QC): 5 Oral Hygiene (QC): 6 Toileting Hygiene (QC): 6 Shower/Bathe Self (QC): 4 Upper Body Dressing (QC): 5 (set up for shirts, Min a for bra) Lower Body Dressing (QC): 3 On/Off Footwear (QC): 2 (with AE) Additional Goals: 1-Demonstrate ADL Tasks, 2-Verbalize Understanding, 3- ImproveStrength/Pat 1=Demonstrate adherence to instructed precautions during ADL tasks. 2=Patient will verbalize/demonstrate understanding of assistive devices/modifications for ADL. 3=Patient will improve strength/tolerance for activity to enable patient to perform ADL's. OT Education/Plan Problem List/Assessment Assessment: Decreased Activ Tolerance, Decreased Safety Aware, Decreased UE Strength, Edema, Impaired Cognition, Impaired Funct Balance, Impaired Self-Care Skills Discharge Recommendations Plan/Recommendations: Continue POC Therapy Discharge Recommendati: Post Acute OT Equpiment Recommendations-D/C: Sock Aide Barriers to Progress Cognition, dementia, old TBI Treatment Plan/Plan of Care Treatment,Training & Education: Yes Patient would benefit from OT for education, treatment and training to promote independence in ADL's, mobility, safety and/or upper extremity function for ADL's. Plan of Care: ADL Retraining, Caregiver Training, Cognitive Retraining, Functional Mobility, Group Exercise/Act as Ind, UE Funct Exercise/Act Treatment Duration: Dec 25, 2021 Frequency: At least 5 of 7 days/Wk (IRF) Estimated Hrs Per Day: 1.5 hours per day (75-90 min/day ) Agreement: Yes Rehab Potential: Fair Time/GCodes Start Time: 13:35 Stop Time: 15:15 Total Time Billed (hr/min): 90 Billed Treatment Time 1 visit EVM (10 min) ADL x4 (60 min) FA (20 min) OT eval: [id number] PT eval: [id number] Co-treat: [id number] Dayna Crandall OT Dec 12, 2021 15:00
[2021-12-12 15:09] VITALS: BP 132/61
[2021-12-12] MEDS ORDERED: MECLIZINE 25 MG (ANTIVERT) TAB PO PRN (17:00)
[2021-12-12] MEDS ORDERED: FLUTICASONE NASAL SPRAY (FLONASE) 16 GM BTL NS PRN (17:00)
[2021-12-12] MEDS ORDERED: HOLD METFORMIN - RECEIVED CONTRAST 20 ML VIAL IV SCH (17:00)
[2021-12-12] MEDS ORDERED: morphine INJ 4 MG/ML 1 ML (VIAL/SYRINGE) IV PRN (17:00)
[2021-12-12] MEDS ORDERED: cloNIDine 0.1 MG (CATAPRES) TAB PO PRN (17:00)
[2021-12-12] MEDS ORDERED: HURRICAINE EXT TUBE (BENZOCAINE) XX PRN (17:00)
[2021-12-12] MEDS ORDERED: cefTRIAXone 1 GM PRE-MIX 50 ML IV SCH (17:00)
[2021-12-12] MEDS ORDERED: polyethylene glycoL POWDER 17 GM (MIRALAX) PACK PO PRN (17:00)
[2021-12-12] MEDS ORDERED: CATHETER FLUSH 10 ML SYR IV PRN (17:00)
[2021-12-12] MEDS ORDERED: LORazepam 0.5 MG (ATIVAN) TABLET PO PRN (17:00)
[2021-12-12] MEDS ORDERED: ZIPRASIDONE 20 MG INJ (GEODON) VIAL IM PRN (17:00)
[2021-12-12] MEDS ORDERED: diphenhydrAMINE 50 MG/ML INJ (BENADRYL) IVP PRN (17:00)
[2021-12-12] MEDS ORDERED: ANTACID SUSP 30 ML UDC (MYLANTA) PO PRN (17:00)
[2021-12-12] MEDS ORDERED: WATER (STERILE) FOR INJ 10 ML BTL INJ SCH (17:00)
[2021-12-12] MEDS ORDERED: MILK OF MAGNESIA 400 MG/5 ML 30 ML UDC PO PRN (17:00)
[2021-12-12] MEDS ORDERED: ONDANSETRON 4 MG/2 ML (SDV) Z0FRAN IV PRN (17:00)
[2021-12-12] MEDS: GLIMEPIRIDE 1 MG (AMARYL) TAB PO SCH (17:31)
[2021-12-12 19:32] VITALS: BP 147/65
[2021-12-12] MEDS: polyethylene glycoL POWDER 17 GM (MIRALAX) PACK PO SCH (19:39)
[2021-12-12] MEDS: DOCUSATE SODIUM 100 MG (COLACE) CAP PO SCH (19:39)
[2021-12-12] MEDS: SENNOSIDES 8.6 MG (SENOKOT) TAB PO SCH (19:39)
[2021-12-12] MEDS: OLANZapine 2.5 MG (ZyPREXA) TAB PO SCH (20:56)
[2021-12-12] MEDS: SUCRALFATE 1 GM (CARAFATE) TAB PO SCH (20:56)
[2021-12-12] MEDS: BETHANECHOL 25 MG (URECHOLINE) TAB PO SCH (20:56)
[2021-12-12] MEDS: MEMANTINE 10 MG (NAMENDA) TABLET PO SCH (20:56)
[2021-12-12] MEDS: cefTRIAXone 1 GM PRE-MIX 50 ML IV SCH (20:57)
[2021-12-12] MEDS ORDERED: OLANZapine 5 MG (ZyPREXA) TAB PO SCH (21:00)
[2021-12-12] MEDS ORDERED: SENNA W/DOCUSATE (SENOKOT S) TABLET PO SCH (21:00)
[2021-12-12] MEDS ORDERED: DOCUSATE SODIUM 100 MG (COLACE) CAP PO SCH (21:00)
[2021-12-12] MEDS: inSUlin ASPART (NovoLOG) 1 UNIT/0.01 ML (CHARGE PER UNIT) SC SCH (21:47)
--- NOTE | 2021-12-13 03:26 | PM&R Progress Note ---
Subjective HPI/CC On Admission Date Seen by Provider: Dec 13, 2021 Time Seen by Provider: 06:00 Subjective/Events-last exam 12/13/2021: Patient seems to be doing better No pain reported Less confusion Zyprexa given last night and it appears to have helped sleep Checked meds and labs Review of Systems General: Fatigue, Malaise Objective Exam Vital Signs Vital Signs Date Time Temp Pulse Resp B/P (MAP) Pulse Ox O2 Delivery O2 Flow Rate FiO2 12/13/21 19:00 95 12/13/21 09:00 Room Air 12/13/21 07:57 36.5 16 139/82 (101) 96 Capillary Refill : General Appearance: No Apparent Distress, WD/WN, Chronically ill, Obese HEENT: PERRL/EOMI, Normal ENT Inspection, Pharynx Normal Neck: Full Range of Motion, Normal Inspection, Non Tender, Supple, Carotid Bruit Respiratory: Chest Non Tender, Lungs Clear, Normal Breath Sounds, No Accessory Muscle Use, No Respiratory Distress Cardiovascular: Regular Rate, Rhythm, No Edema, No Gallop, No JVD, No Murmur, Normal Peripheral Pulses Gastrointestinal: Normal Bowel Sounds, No Organomegaly, No Pulsatile Mass, Non Tender, Soft Back: Normal Inspection, No CVA Tenderness, No Vertebral Tenderness Extremity: Normal Capillary Refill, Normal Inspection, Normal Range of Motion, Non Tender, No Calf Tenderness, No Pedal Edema Neurologic/Psychiatric: Alert, Oriented x3, Normal Mood/Affect, post anesthesia room nurse II-XII Norm as Tested, Abnormal Gait, Disoriented, Motor Weakness (Weakness of legs 3/5) Skin: Normal Color, Warm/Dry Lymphatic: No Adenopathy Results/Procedures Lab Laboratory Tests 12/13/21 05:43 Patient resulted labs reviewed. FIM Transfers Therapy Code Descriptions/Definitions Functional Randall Measure: 0=Not Assessed/NA 4=Minimal Assistance 1=Total Assistance 5=Supervision or Setup 2=Maximal Assistance 6=Modified Randall 3=Moderate Assistance 7=Complete IndependenceSCALE: Activities may be completed with or without assistive devices. 3-Hfzuujyehj-rnxlyak completes the activity by him/herself with no assistance from a helper. 5-Set-up or Clean-up Assistance-helper sets up or cleans up; patient completes activity. [place] assists only prior to or following the activity. 4-Supervision or Touching Assistance-helper provides verbal cues and/or touching/steadying and/or contact guard assistance as patient completes activity. Assistance may be provided throughout the activity or intermittently. 3-Partial/Moderate Assistance-helper does LESS THAN HALF the effort. [place] lifts, holds or supports trunk or limbs, but provides less than half the effort. 2-Substantial/Maximal Assistance-helper does MORE THAN HALF the effort. [place] lifts or holds trunk or limbs and provides more than half the effort. 1-Yzssxwnxi-djmcro does ALL the effort. Patient does none of the effort to complete the activity. Or, the assistance of 2 or more helpers is required for the patient to complete the activity. If activity was not attempted, code reason: 7-Patient Refused. 9-Not Applicable-not attempted and the patient did not perform the activity before the current illness, exacerbation or injury. 10-Not Attempted due to Environmental Limitations-(lack of equipment, weather restraints, etc.). 88-Not Attempted due to Medical Conditions or Safety Concerns. Roll Left to Right (QC): 4 Sit to Lying (QC): 4 Sit to Stand (QC): 4 Chair/Bam-mh-Mjkcz Xfer(QC): 4 Car Transfer (QC): 4 Gait Training Does the Patient Walk?: Yes Walk 10 feet (QC): 5 Walk 50 ft with 2 Turns(QC): 5 Walk 150 ft (QC): 5 Walking 10ft/uneven surface-QC: 4 Gait Assistive Device: FWW Wheelchair Training Does the Pt Use a Wheelchair?: No Wheel 50 ft with 2 turns (QC): 9 Wheel 150 ft (QC): 9 Stair Training #of Steps: 4 1 Step (curb) (QC): 3 4 Steps (QC): 3 12 Steps (QC): 88 Balance Picking up an Object (QC): 4 ADL-Treatment Eating (QC): 5 (per clinical judgment) Oral Hygiene (QC): 4 (CGA) Shower/Bathe Self (QC): 3 Upper Body Dressing (QC): 3 Lower Body Dressing (QC): 3 (baseline) On/Off Footwear (QC): 1 (baseline) Toileting Hygiene (QC): 3 Assessment/Plan Assessment and Plan Assess & Plan/Chief Complaint Assessment: Debility Colon masses pathology pending Hematemesis UTI Delirium Acute urinary retention Hypertension Hyperlipidemia Dementia 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 Fall risk Plan: Ayde PT OT Supportive care Delirium management 12/13/2021: Monitor sugar Fall risk (1) GI bleed (2) Colonic mass (3) Dementia Status: Acute (4) Generalized weakness Status: Acute (5) Hematemesis Status: Acute (6) Urinary tract infection Status: Acute (7) Weakness (8) Edema (9) Diarrhea (10) Diabetes JAMES BOWDEN DO Dec 13, 2021 03:26
--- NOTE | 2021-12-13 03:27 | Individualized Plan of Care ---
Individualized Plan of Care Rehab Nursing IPOC Order Admission Date Dec 12, 2021 at 13:35 Current Orders Orders Admission Order(Inpt,Obs,Sdc) (12/12/21 12:11) Vital Signs: Per Unit Policy ( 08,16,00 (12/12/21 12:11) Abdi José (12/12/21 12:11) Sequential Compression Device (12/12/21 12:11) Net Front End Developer-Inpt Rehab Con (12/12/21 12:11) Rehab Nursing Orders-Ipoc (12/12/21 12:11) Physical Therapy Rehab Orders (12/12/21 12:11) Occupational Therapy Rehab Ord (12/12/21 12:11) Speech Therapy Rehab Orders (12/12/21 12:11) Cbc With Automated Diff (12/13/21 06:00) Comprehensive Metabolic Panel (12/13/21 06:00) Precautions (Aru) (12/12/21 12:11) Weekly Weight WEEK (12/12/21 12:11) Rehab-Intensity Of Therapy (12/12/21 12:11) Initiate Admission Nursing Pro .admission (12/12/21 12:11) Alprazolam Tablet (Xanax Tablet) (12/12/21 12:15) Calcium Carbonate Chew Tablet (Antacid C (12/12/21 12:15) Diphenhydramine Tablet (Benadryl Tablet) (12/12/21 12:15) Docusate Sodium Capsule (Colace Capsule) (12/12/21 21:00) Docusate Sodium Capsule (Colace Capsule) (12/12/21 12:15) Bisacodyl Suppository (Dulcolax Supposit (12/12/21 12:15) Lactulose Oral Solution (Enulose Oral So (12/12/21 12:15) Na Phos/Na Biphos Enema (Fleet Enema Enrrique (12/12/21 12:15) Guaifenesin/Codeine Syrup (Robitussin Ac (12/12/21 12:15) Loperamide Tablet (Imodium Tablet) (12/12/21 12:15) Melatonin Tablet (Melatonin Tablet) (12/12/21 12:15) Polyethylene Glycol Powder Pkt (Miralax (12/12/21 21:00) Ondansetron Oral Dissolve Tab (Zofran (12/12/21 12:15) Senna S Tablet (Senokot S Tablet) (12/12/21 21:00) Acetaminophen Tablet/Caplet (Tylenol T (12/12/21 12:15) Code/Resuscitation (12/12/21 12:11) Initiate Admission Nursing Pro .admission (12/12/21 12:11) Admission Arrival Bed Request (12/12/21 14:42) General/Regular (12/12/21 Dinner) Patient Visit (12/12/21 ) Pt Eval Moderate Complexity (12/12/21 ) Gait Training, Ea 15 Min (12/12/21 ) Exercise Therap, Ea 15 Min (12/12/21 ) Functional Activities, Ea 15 (12/12/21 ) Code/Resuscitation (12/12/21 16:49) Accucheck Achs ACHS (12/12/21 16:49) Sequential Compression Device (12/12/21 16:49) Abdi Hose (12/12/21 16:49) Vte Contraindication (12/12/21 16:49) Diphenhydramine Injection (Benadryl Inje (12/12/21 17:00) Bethanechol Tablet (Urecholine Tablet) (12/12/21 21:00) Docusate Sodium Capsule (Colace Capsule) (12/12/21 21:00) Bisacodyl Suppository (Dulcolax Supposit (12/12/21 17:00) Lactulose Oral Solution (Enulose Oral So (12/12/21 17:00) Fluticasone Nasal [place] (Flonase Nasal S (12/12/21 17:00) Glimepiride Tablet (Amaryl Tablet) (12/12/21 18:00) Benzocaine Extension Tube (Hurricaine Ex (12/12/21 17:00) Lorazepam Tablet (Ativan Tablet) (12/12/21 17:00) Loperamide Tablet (Imodium Tablet) (12/12/21 17:00) Meclizine Tablet (Antivert Tablet) (12/12/21 17:00) Melatonin Tablet (Melatonin Tablet) (12/12/21 17:00) Memantine Tablet (Namenda Tablet) (12/12/21 21:00) Magnesium Hydroxide Oral Susp (Mom Oral (12/12/21 17:00) Polyethylene Glycol Powder Pkt (Miralax (12/12/21 17:00) Morphine Injection (Morphine Injection (12/12/21 17:00) Antacid Suspension (Mylanta Suspension (12/12/21 17:00) Insulin Aspart (Novolog) (Novolog (Charg (12/12/21 21:00) Ceftriaxone 1 Gm Pre-Mix (Rocephin 1 Gm (12/12/21 17:00) Sennosides Tablet (Senokot Tablet) (12/12/21 21:00) Sodium Chloride Flush (Catheter Flush Sy (12/12/21 17:00) Sucralfate Tablet (Carafate Tablet) (12/12/21 21:00) Calcium Carbonate Chew Tablet (Antacid C (12/12/21 17:00) Acetaminophen Tablet/Caplet (Tylenol T (12/12/21 17:00) Ondansetron Injection (Zofran Injectio (12/12/21 17:00) Ondansetron Oral Dissolve Tab (Zofran (12/12/21 17:00) Amlodipine Tablet (Norvasc Tablet) (12/13/21 09:00) Clonidine Tablet (Catapres Tablet) (12/12/21 17:00) Diphenhydramine Tablet (Benadryl Tablet) (12/12/21 17:00) Lisinopril Tablet (Zestril Tablet) (12/13/21 09:00) Oxycodone Immediate Rel Tablet (Oxyir Ta (12/12/21 17:00) Pantoprazole Tablet (Protonix Tablet) (12/13/21 09:00) Olanzapine Tablet (Zyprexa Tablet) (12/12/21 21:00) Ziprasidone Injection (Geodon Injection) (12/12/21 17:00) Water (Sterile) For Injection (Sterile W (12/12/21 17:00) Received Contrast (Hold Metformin- Contr (12/12/21 17:00) Ceftriaxone 1 Gm Pre-Mix (Rocephin 1 Gm (12/12/21 21:00) Olanzapine Tablet (Zyprexa Tablet) (12/12/21 21:00) Telemetry (12/12/21 19:45) Telemetry Nursing Assessment ( (12/12/21 19:45) Patient Visit (12/13/21 ) Speech Sound Lang Comp (12/13/21 ) Treat. Speech/Lang/Voice (12/13/21 ) Patient Visit (12/13/21 ) Functional Activities, Ea 15 (12/13/21 ) Exercise Therap, Ea 15 Min (12/13/21 ) Rehab Nursing Orders: Ongoing Assess. of Cognitive Status, Ongoing Assess. of Function Status, Bladder Management, Bladder Scan, Bladder Training, Bowel Management, Bowel Training, Disease Management & Educaiton, DVT Prophylaxis, Fall Prevention, Fluid/Electrolyte/Nutrition Mgmt, Infection Prevention, Medication Management & Education, Management of Risks & Complications, Management of Skin Intergrity, Nutrition Management, Pain Management, Patient/Family Support, Safety Management Intensity of Therapy to be met Patient to be seen: Min.3h per day/5 of 7d PT IPOC Problem List: Activity Tolerance, Functional Strength, Safety, Balance, Gait, Transfer, Bed Mobility, ROM Treatment Plan: Continue Plan of Care Bed Mobility, Education, Functional Activity Pat, Functional Strength, Group Therapy, Gait, Safety, Therapeutic Exercise, Transfers Treatment Duration: Jan 24, 2022 Frequency: At least 5 of 7 days/Wk (IRF) Estimated Hrs Per Day: 1.5 hours per day OT IPOC Problems: Decreased Activ Tolerance, Decreased Safety Aware, Decreased UE Strength, Edema, Impaired Cognition, Impaired Funct Balance, Impaired Self-Care Skills OT Treatment, Training and Edu: Yes Plan of Care: ADL Retraining, Caregiver Training, Cognitive Retraining, Functional Mobility, Group Exercise/Act as Ind, UE Funct Exercise/Act Treatment Duration: Dec 25, 2021 Frequency: At least 5 of 7 days/Wk (IRF) Estimated Hrs Per Day: 1.5 hours per day (75-90 min/day ) ST IPOC Speech Therapy Treatment Plan: Continue Plan of Care Treatment Duration: Dec 13, 2021 Frequency: Modified Program (IRF) Estimated Hrs Per Day: Other Net Front End Developer/Case Mgmt Net Front End Developer/Case Managemen: Discharge Planning Dietitian/Rough And Trueing Machine Operator Dietitian/Rough And Trueing Machine Operator to monitor nutritional status and make changes and/or recommendations as needed and work with speech pathology on dietary upgrades as the occur. Physician IPOC Medical Issues being managed closely and that require the 24 hour availability of a physician: Recent diagnosis of colon masses and hematemesis with cognition issues will need close monitoring for decompensation Medical Issues: Bowel/Bladder Function, DVT Prophylaxis, Falls Precautions, Fluid/Electrolyte/Nutrition Balance, Infection Protection, Pain Management Brief Synthesis of Preadmission Screen, Post-Admission Evaluation, and Therapy Evaluations: PT OT ST will all focus on regaining function in order to use assistive devices to increase stamina and help prevent falls and help with thought processes Medical Prognosis: Fair Anticipated Length of Stay: 7 days JAMES BOWDEN DO Dec 13, 2021 03:27
[2021-12-13] MEDS: BETHANECHOL 25 MG (URECHOLINE) TAB PO SCH ×4 (06:20→21:21)
[2021-12-13] MEDS: inSUlin ASPART (NovoLOG) 1 UNIT/0.01 ML (CHARGE PER UNIT) SC SCH ×4 (06:20→21:22)
[2021-12-13] MEDS: SUCRALFATE 1 GM (CARAFATE) TAB PO SCH ×4 (06:20→21:22)
[2021-12-13 06:21] LABS: BASOPHILS % (AUTO) 1 % (0-10); EOSINOPHILS # (AUTO) 0.1 10^3/uL (0.0-0.3); EOSINOPHILS % (AUTO) 4 % (0-10); HEMATOCRIT 31 % (35-52); HEMOGLOBIN 10.2 g/dL (11.5-16.0); LYMPHOCYTES # (AUTO) 1.1 10^3/uL (1.0-4.0); LYMPHOCYTES % (AUTO) 29 % (12-44); MEAN CORPUSCULAR HEMOGLOBIN 28 pg (25-34); MEAN CORPUSCULAR HGB CONC 33 g/dL (32-36); MEAN CORPUSCULAR VOLUME 85 fL (80-99); MONOCYTES # (AUTO) 0.3 10^3/uL (0.0-1.0); MONOCYTES % (AUTO) 8 % (0-12); NEUTROPHILS # (AUTO) 2.3 10^3/uL (1.8-7.8); NEUTROPHILS % (AUTO) 59 % (42-75); PLATELET COUNT 231 10^3/uL (130-400); WHITE BLOOD COUNT 3.8 10^3/uL (4.3-11.0)
[2021-12-13 06:32] LABS: ALBUMIN 3.4 GM/DL (3.2-4.5)
[2021-12-13 06:33] LABS: POTASSIUM 3.4 MMOL/L (3.6-5.0)
[2021-12-13 06:34] LABS: CALCIUM 8.6 MG/DL (8.5-10.1)
[2021-12-13 06:35] LABS: TOTAL PROTEIN 5.8 GM/DL (6.4-8.2)
[2021-12-13 06:37] LABS: BILIRUBIN,TOTAL 0.2 MG/DL (0.1-1.0)
[2021-12-13 06:39] LABS: CREATININE SERUM 0.72 MG/DL (0.60-1.30)
[2021-12-13 07:57] VITALS: BP 139/82
--- NOTE | 2021-12-13 08:13 | Occupational Ther Daily Note ---
OT Current Status-Daily Note Subjective Pt denies pain, agreeable to get dressed. Appearance Pt left sitting in recliner, all needs within reach at OT departure. Mental Status/Objective Patient Orientation: Person, Place, Situation Attachments: Telemetry ADL-Treatment Therapy Code Descriptions/Definitions Functional [place] Measure: 0=Not Assessed/NA 4=Minimal Assistance 1=Total Assistance 5=Supervision or Setup 2=Maximal Assistance 6=Modified [place] 3=Moderate Assistance 7=Complete IndependenceSCALE: Activities may be completed with or without assistive devices. 1-Hcrfdibwja-hdjcjmm completes the activity by him/herself with no assistance from a helper. 5-Set-up or Clean-up Assistance-helper sets up or cleans up; patient completes activity. [place] assists only prior to or following the activity. 4-Supervision or Touching Assistance-helper provides verbal cues and/or touching/steadying and/or contact guard assistance as patient completes activity. Assistance may be provided throughout the activity or intermittently. 3-Partial/Moderate Assistance-helper does LESS THAN HALF the effort. [place] lifts, holds or supports trunk or limbs, but provides less than half the effort. 2-Substantial/Maximal Assistance-helper does MORE THAN HALF the effort. [place] lifts or holds trunk or limbs and provides more than half the effort. 7-Znhaapzxt-ojpkiw does ALL the effort. Patient does none of the effort to comp lete the activity. Or, the assistance of 2 or more helpers is required for the patient to complete the activity. If activity was not attempted, code reason: 7-Patient Refused. 9-Not Applicable-not attempted and the patient did not perform the activity before the current illness, exacerbation or injury. 10-Not Attempted due to Environmental Limitations-(lack of equipment, weather restraints, etc.). 88-Not Attempted due to Medical Conditions or Safety Concerns. Eating (QC): 5 Upper Body Dressing (QC): 3 Lower Body Dressing (QC): 3 On/Off Footwear: 2 Toileting Hygiene (QC): 3 Toilet Transfer (QC): 4 Dressing tasks performed seated in chair. Slight improvement in sequencing when donning bra, but mod verbal cues still needed. Assist also to fasten (which spouse does at baseline). Pt may benefit from compensatory strategy of donning bra overhead like a T-shirt. (fasten first) OT to attempt next session. While doffing brief, pt found to be incontinent of stool. She ambulated to/from bathroom with walker and CGA for safety. She finished having a bowel movement sitting on the toilet. Veronica care completed in sitting, min a needed for t horoughness. Brief/shorts donned seated on toilet. Post instruction on use of sales data analyst, pt able to thread BLE's into brief with extra time, mod verbal cues, and min a. She did not require use of AE when donning feet into shorts. Steadying assist needed as she stood to pull clothing up to hips. Dependent to don YFN hose. Max a to slide heel into shoes. Pt could benefit from use of LHSH. Grooming tasks performed seated in chair with set up. Education OT Patient Education: Correct positioning, Energy conservation, Modified ADL techniques, Progress toward Goal/Update tx plan, Purpose of tx/functional act ivities, Reviewed precautions, Safety issues, Transfer techniques, Use of adapted equipment Teaching Recipient: Patient Teaching Methods: Demonstration, Discussion Response to Teaching: Verbalize Understanding, Return Demonstration, Reinforcement Needed OT Short Term Goals Short Term Goals Time Frame: Dec 19, 2021 Eatin Oral hygiene: 5 Toileting hygiene: 4 Shower/bathe self: 4 Upper body dressin Lower body dressin Putting on/taking off footwear: 2 OT Mcc Goals Mcc Goals Time Frame: Dec 25, 2021 Eating (QC): 5 Oral Hygiene (QC): 6 Toileting Hygiene (QC): 6 Shower/Bathe Self (QC): 4 Upper Body Dressing (QC): 5 (set up for shirts, Min a for bra) Lower Body Dressing (QC): 3 On/Off Footwear (QC): 2 (with AE) Additional Goals: 1-Demonstrate ADL Tasks, 2-Verbalize Understanding, 3- ImproveStrength/Pat 1=Demonstrate adherence to instructed precautions during ADL tasks. 2=Patient will verbalize/demonstrate understanding of assistive devices/modifications for ADL. 3=Patient will improve strength/tolerance for activity to enable patient to perform ADL's. OT Education/Plan Problem List/Assessment Assessment: Decreased Activ Tolerance, Decreased Safety Aware, Decreased UE Strength, Edema, Impaired Cognition, Impaired Funct Balance, Impaired Self-Care Skills Discharge Recommendations Plan/Recommendations: Continue POC Equpiment Recommendations-D/C: Constantin Storey Shoe Beatriz Treatment Plan/Plan of Care Treatment,Training & Education: Yes Patient would benefit from OT for education, treatment and training to promote independence in ADL's, mobility, safety and/or upper extremity function for ADL's. Plan of Care: ADL Retraining, Caregiver Training, Cognitive Retraining, Functional Mobility, Group Exercise/Act as Ind, UE Funct Exercise/Act Treatment Duration: Dec 25, 2021 Frequency: At least 5 of 7 days/Wk (IRF) Estimated Hrs Per Day: 1.5 hours per day (75-90 min/day ) Agreement: Yes Rehab Potential: Fair Time/GCodes Start Time: 07:27 Stop Time: 08:21 Total Time Billed (hr/min): 54 Billed Treatment Time 1 visit ADL x4 Dayna Crandall OT Dec 13, 2021 08:13
[2021-12-13] MEDS: PANTOPRAZOLE 40 MG (PROTONIX) TAB PO SCH (08:42)
[2021-12-13] MEDS: lisINopril 20 MG (PRINIVIL) TABLET PO SCH (08:42)
[2021-12-13] MEDS: DOCUSATE SODIUM 100 MG (COLACE) CAP PO SCH ×2 (08:42→21:20)
[2021-12-13] MEDS: GLIMEPIRIDE 1 MG (AMARYL) TAB PO SCH ×2 (08:42→17:42)
[2021-12-13] MEDS: polyethylene glycoL POWDER 17 GM (MIRALAX) PACK PO SCH ×2 (08:42→21:20)
[2021-12-13] MEDS: SENNOSIDES 8.6 MG (SENOKOT) TAB PO SCH ×2 (08:42→21:20)
[2021-12-13] MEDS: amLODIPine 5 MG (NORVASC) TAB PO SCH (08:42)
[2021-12-13] MEDS: MEMANTINE 10 MG (NAMENDA) TABLET PO SCH ×2 (08:42→21:22)
--- NOTE | 2021-12-13 08:56 | ST Cognitive Linguistic Eval ---
Speech Evaluation-General Medical Diagnosis GI bleed/Weakness Onset Date: Dec 12, 2021 Therapy Diagnosis Therapy Diagnosis: Neurocognitive Impairment (Baseline) Precautions Precautions: Fall Precautions/Isolations: Fall Prevention, Standard Precautions Referral Referring Physician: Dr. Acosta Reason for Referral: Evaluation/Treatment Medical History Pertinent Medical History: DM, Dementia, HTN, Thrombosis Current History The patient is a 81 year old female with a past medical history of dementia, high cholesterol, HTN, and diabetes, who was admitted on 12/10/21 for hematemesis and bloody stools. The patient was found to have a gastroesphageal ulcer, ascending colon polyps, hepatic flexure polyp, a transverse colon mass, and a rectosigmoid colon mass. Reviewed History: Yes Social History Current Living Status: Spouse Speech PLF-Current Status Prior Level of Function The patient denied confusion to this clinician and reports baseline cognitive function. The patient has a known diagnosis of dementia. Subjective The patient was seated upright in her recliner, awake and alert upon entrance to her room by the clinician. The patient greeted the clinician appropriately and was agreeable to participation in the cognitive linguistic assessment. The patient denied recent concerns or difficulties with her cognition, speech, language or swallowing (the patient does have a known diagnosis of dementia). Language Eval: Auditory Comprehends Simple Yes/No Ques: Functional Indent/Objects Multiple Young: Functional Ident/Pics in Multiple Young: Functional Follows 1-Step Commands: Functional Follows General Conversations: Functional Language Eval: Verbal Language Completes Spontaneous Greeting: Functional Produces Auto, Serial Info: Functional Imitates Simple Words/Phrases: Functional Word Finding: Functional Requests Basic Needs: Functional States Basic Personal Info: Functional Cognitive Patient Orientation The patient is oriented to self and day of the week. The patient is not oriented to month or year at this time. Objective Cognitive Domain Attention: Mild Memory: Mild Problem Solving: Mild Composite Severity Rating: Mild (Mild to Moderate) Clock Drawing Severity Rating: Moderate Objective Formal/Standardized Tests [facility] Mental Status Exam (UMS) Results The patient demonstrated a result of +18/30 correlating to a score of "dementia" per UMS protocol. Oral Motor/Speech Production The patient does not display dysarthria or apraxia of speech at this time. The patient is 100% intelligible in known and unknown contexts. Impression The patient demonstrated a mild cognitive deficit in the areas of memory and problem solving. The patient has not displayed a recent decline in cognition throughout her acute hospitalization or admission. The patient reports she is functioning at baseline. Due to limited progression expected with cognitive goals (secondary to baseline status), speech pathology will not provide services at this time. If the patient experiences a decline in cognitive function (outside of normative baseline), please re-consult speech pathology. Speech Patient Assess Expression of Ideas/Wants: Exhibits (3) Understanding Verbal Content: Usually Understands (3) Brief Interview-Mental Status: Yes Repetition of Three Words: Three (3) Temporal Orientation: Year: No answer (0) Temporal Orientation: Month: No answer (0) Temporal Orientation: Day: Correct (1) Recall : Wear to say "Sock": Yes, no cue required (2) Recall : Color: Yes, no cue required (2) Recall : Bed: Yes,after cueing (1) Memory/Recall Ability: Current season, That he or she is in a hsp/hsp unit Speech-Plan Treatment Plan Speech Therapy Treatment Plan: Discontinue ST (Baseline Status.) Frequency: 1 time per week Estimated Hrs Per Day: .5 hour per day Rehab Potential: Fair Time Speech Therapy Time In: 08:30 Speech Therapy Time Out: 09:00 Total Billed Time: 30 Billed Treatment Time 1, NANCY GOODEN ELIZ[facility] ST Dec 13, 2021 08:56
--- NOTE | 2021-12-13 09:43 | Physical Therapy Daily Note ---
PT Daily Note-Current Subjective Patient in recliner pre tx, agrees to PT, has no complaints of pain. Appearance Patient in recliner post tx with nurse call, phone, tray, all needs met. Mental Status Patient Orientation: Person, Place, Situation Transfers SCALE: Activities may be completed with or without assistive devices. 2-Xfhiacjctl-vjsqjbi completes the activity by him/herself with no assistance from a helper. 5-Set-up or Clean-up Assistance-helper sets up or cleans up; patient completes activity. [place] assists only prior to or following the activity. 4-Supervision or Touching Assistance-helper provides verbal cues and/or jessenia reza/steadying and/or contact guard assistance as patient completes activity. Assistance may be provided throughout the activity or intermittently. 3-Partial/Moderate Assistance-helper does LESS THAN HALF the effort. [place] lifts, holds or supports trunk or limbs, but provides less than half the effort. 2-Substantial/Maximal Assistance-helper does MORE THAN HALF the effort. [place] lifts or holds trunk or limbs and provides more than half the effort. 8-Wuzspmskx-socmdy does ALL the effort. Patient does none of the effort to complete the activity. Or, the assistance of 2 or more helpers is required for the patient to complete the activity. If activity was not attempted, code reason: 7-Patient Refused. 9-Not Applicable-not attempted and the patient did not perform the activity before the current illness, exacerbation or injury. 10-Not Attempted due to Environmental Limitations-(lack of equipment, weather restraints, etc.). 88-Not Attempted due to Medical Conditions or Safety Concerns. Sit to Stand (QC): 4 Chair/Qog-ec-Esvnn Xfer(QC): 4 CGA, occasional cues for hand placement and safety Weight Bearing Right Lower Extremity: Right Full Weight Bearing Left Lower Extremity: Left Full Weight Bearing Gait Training Distance: 150'x2, 120' Walk 10 feet (QC): 4 Walk 50 ft with 2 Turns(QC): 4 Walk 150 ft (QC): 4 Gait Persons Needed: 1 Gait Assistive Device: FWW CGA, slow ambulation, tends to drag right foot a bit, needs occasional standing rest break Exercises Standing: Heel/toe raises, Mini squats Standing Reps: 15 NuStep Minutes: 15 NuStep Workload: 5 Treatments transfers, ambulation, functional strengthening Assessment Current Status: Fair Progress patient tends to have increased stooping or slumping during ambulation, increased knee flexion and hip flexion with fatigue PT Residential Goals Residential Goals PT X Ray Developer Goals Time Frame: Jan 04, 2022 Roll Left & Right (QC): 6 Sit to Lying (QC): 6 Lying-Sitting on Side/Bed(QC): 6 Sit to Stand (QC): 6 Chair/Lbc-ny-Jfptm Xfer(QC): 6 Toilet Transfer (QC): 6 Car Transfer (QC): 6 Does the Patient Walk: Yes Walk 10 feet (QC): 6 Walk 50ft with 2 Turns (QC): 6 Walk 150 ft (QC): 6 Walking 10ft on Uneven Surface: 6 1 Step (curb) (QC): 6 4 Steps (QC): 6 12 Steps (QC): 4 Picking up an Object (QC): 6 Does the Pt use WC or Scooter?: No Wheel 50 feet with 2 turns (QC: 9 Wheel 150 feet: 9 PT Plan Problem List Problem List: Activity Tolerance, Functional Strength, Safety, Balance, Gait, Transfer, Bed Mobility, ROM Treatment/Plan Treatment Plan: Continue Plan of Care Treatment Plan: Bed Mobility, Education, Functional Activity Pat, Functional Strength, Group Therapy, Gait, Safety, Therapeutic Exercise, Transfers Treatment Duration: Jan 24, 2022 Frequency: At least 5 of 7 days/Wk (IRF) Estimated Hrs Per Day: 1.5 hours per day Patient and/or Family Agrees t: Yes Safety Risks/Education Patient Education: Gait Training, Transfer Techniques, Correct Positioning, Safety Issues Teaching Recipient: Patient Teaching Methods: Demonstration, Discussion Response to Teaching: Reinforcement Needed Time/GCodes Time In: 0900 Time Out: 944 Total Billed Treatment Time: 45 Total Billed Treatment 1 visit EX 20' FA 25' EMIL NOWAK PT Dec 13, 2021 09:43
--- NOTE | 2021-12-13 13:31 | Progress Note ---
CARMINA FRY 12/13/21 1330: Progress Note HPI/hospital course: Mohini Martinez is a 81y/o F who was admitted on 12/10 for hematemesis and bloody stools. General surgery was consulted. EGD and colonoscopy were done. She was found to have a gastroesphageal ulcer on EGD and ascending colon polyp x2, hepatic flexure polyp, transverse colon mass near splenic flexure, rectosigmoid colon mass were found on colonoscopy. Biopsies were done and sent to pathology, awaiting pathology report. Hgb has been stable throughout stay. UA was done that showed trace leukocyte esterase and moderate bacteria. She was started on rocephin. UA returned on 12/11 with no growth. She also experienced acute urinary retention. Benítez catheter was placed. Removed on 12/11, able to void w/o issue at the moment. Currently taking urecholine. She has a hx of dementia and has been experiencing episodes of delirium, especially at night. Legs had increased edema today, given 40mg Lasix via IV. Her ability to walk and perform other ADLs has decreased since being admitted. She was moved to inpt rehab on 12/12 and began OT and PT. Today she reports that she is doing well. Tolerating PT/OT well and has no concerns about therapy. Able to urinate and have BMs w/o issues she states. 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 I reviewed and verified all information documented by the medical student and made modifications to such information, when appropriate. I personally performed the physical exam and medical decision making. Mayra Bowden, Dec 13, 2021,21:14 CARMINA FRY Dec 13, 2021 13:30 MAYRA BOWDEN DO Dec 13, 2021 21:14
--- NOTE | 2021-12-13 14:28 | Therapy Group Daily Note ---
Therapy Daily Group Note Patient Education Topic Home Safety, Fall Prevention, Other List Below (ARU orientation/expectations) Exercises LE Seated Exercise, UE Exercise Session Ratio (pt:therapist): 4:1 Goal of Session: Education on ARU Expectations, Home Safety Strategies, UE/LE Strengthing, Safety with Transfers, Use of Adaptive Equipment Goal Met for this Session: Yes Pt Benefit of Group: Contributions to Others, F/U Use of Strategies @Home, Increased Functional Safety, Increased Functional Strength, Improved Cognition, Recognition of Peers, Socialization Other/Notes Pt ambulated using FWW with CGA to OT/PT group in [facility] area. Group consisted of introductions (name, place), socialization, B UE/LE seated exercises, educational topics-ARU orientation, AE for safe transfers throughout home environment. Pt actively listened to peers and introduced self appropriately. Pt acknowledged understanding of educational topics by nodding head in affirmative and giving own personal strategies. Pt able to complete B UE seated exercises without difficulty. After session, pt lying in bed with call light/phone in reach. All needs met. Start Time: 13:00 Stop Time: 14:00 Total Billed Treatment Time: 60 Total Billed Treatment 1-GRP BLANCA MO Dec 13, 2021 14:28
[2021-12-13 20:48] VITALS: BP 159/85
[2021-12-13] MEDS: OLANZapine 2.5 MG (ZyPREXA) TAB PO SCH (21:22)
[2021-12-13] MEDS: cefTRIAXone 1 GM PRE-MIX 50 ML IV SCH (21:26)
[2021-12-14] MEDS: SUCRALFATE 1 GM (CARAFATE) TAB PO SCH ×4 (06:17→21:22)
[2021-12-14] MEDS: BETHANECHOL 25 MG (URECHOLINE) TAB PO SCH ×4 (06:17→21:22)
[2021-12-14] MEDS: GLIMEPIRIDE 1 MG (AMARYL) TAB PO SCH ×2 (07:04→18:22)
[2021-12-14] MEDS: inSUlin ASPART (NovoLOG) 1 UNIT/0.01 ML (CHARGE PER UNIT) SC SCH ×4 (07:04→21:23)
[2021-12-14 07:07] VITALS: BP 163/87
--- NOTE | 2021-12-14 07:58 | PM&R Progress Note ---
Subjective HPI/CC On Admission Date Seen by Provider: Dec 14, 2021 Time Seen by Provider: 06:15 Subjective/Events-last exam 12/14/2021: Slept all night long last night Feels really good Zyprexa taking care of the delirium No other concerns No falls 12/13/2021: Patient seems to be doing better No pain reported Less confusion Zyprexa given last night and it appears to have helped sleep Checked meds and labs Review of Systems General: Fatigue Neurological: Confusion Objective Exam Vital Signs Vital Signs Date Time Temp Pulse Resp B/P (MAP) Pulse Ox O2 Delivery O2 Flow Rate FiO2 12/14/21 07:35 96 12/14/21 07:07 36.4 18 163/87 (112) 99 Room Air Capillary Refill : General Appearance: No Apparent Distress, WD/WN, Chronically ill, Obese HEENT: PERRL/EOMI, Normal ENT Inspection, Pharynx Normal Neck: Full Range of Motion, Normal Inspection, Non Tender, Supple, Carotid Bruit Respiratory: Chest Non Tender, Lungs Clear, Normal Breath Sounds, No Accessory Muscle Use, No Respiratory Distress Cardiovascular: Regular Rate, Rhythm, No Edema, No Gallop, No JVD, No Murmur, Normal Peripheral Pulses Gastrointestinal: Normal Bowel Sounds, No Organomegaly, No Pulsatile Mass, Non Tender, Soft Back: Normal Inspection, No CVA Tenderness, No Vertebral Tenderness Extremity: Normal Capillary Refill, Normal Inspection, Normal Range of Motion, Non Tender, No Calf Tenderness, No Pedal Edema Neurologic/Psychiatric: Alert, Oriented x3, Normal Mood/Affect, sister superior II-XII Norm as Tested, Abnormal Gait, Disoriented, Motor Weakness (Weakness of legs 3/5) Skin: Normal Color, Warm/Dry Lymphatic: No Adenopathy Results/Procedures Lab Patient resulted labs reviewed. FIM Transfers Therapy Code Descriptions/Definitions Functional [place] Measure: 0=Not Assessed/NA 4=Minimal Assistance 1=Total Assistance 5=Supervision or Setup 2=Maximal Assistance 6=Modified [place] 3=Moderate Assistance 7=Complete IndependenceSCALE: Activities may be completed with or without assistive devices. 4-Fedmkidjvh-legszzk completes the activity by him/herself with no assistance from a helper. 5-Set-up or Clean-up Assistance-helper sets up or cleans up; patient completes activity. [place] assists only prior to or following the activity. 4-Supervision or Touching Assistance-helper provides verbal cues and/or touching/steadying and/or contact guard assistance as patient completes activity. Assistance may be provided throughout the activity or intermittently. 3-Partial/Moderate Assistance-helper does LESS THAN HALF the effort. [place] lifts, holds or supports trunk or limbs, but provides less than half the effort. 2-Substantial/Maximal Assistance-helper does MORE THAN HALF the effort. [place] lifts or holds trunk or limbs and provides more than half the effort. 1-Vwizbywcu-fofzbf does ALL the effort. Patient does none of the effort to complete the activity. Or, the assistance of 2 or more helpers is required for the patient to complete the activity. If activity was not attempted, code reason: 7-Patient Refused. 9-Not Applicable-not attempted and the patient did not perform the activity before the current illness, exacerbation or injury. 10-Not Attempted due to Environmental Limitations-(lack of equipment, weather restraints, etc.). 88-Not Attempted due to Medical Conditions or Safety Concerns. Roll Left to Right (QC): 4 Sit to Lying (QC): 4 Sit to Stand (QC): 4 Chair/Rpc-zp-Kgunf Xfer(QC): 4 Car Transfer (QC): 4 Gait Training Does the Patient Walk?: Yes Distance: 150'x2, 120' Walk 10 feet (QC): 4 Walk 50 ft with 2 Turns(QC): 4 Walk 150 ft (QC): 4 Walking 10ft/uneven surface-QC: 4 Gait Persons Needed: 1 Gait Assistive Device: FWW Wheelchair Training Does the Pt Use a Wheelchair?: No Wheel 50 ft with 2 turns (QC): 9 Wheel 150 ft (QC): 9 Stair Training #of Steps: 4 1 Step (curb) (QC): 3 4 Steps (QC): 3 12 Steps (QC): 88 Balance Picking up an Object (QC): 4 ADL-Treatment Eating (QC): 5 Oral Hygiene (QC): 4 (CGA) Shower/Bathe Self (QC): 3 Upper Body Dressing (QC): 3 Lower Body Dressing (QC): 3 On/Off Footwear (QC): 2 Toileting Hygiene (QC): 3 Toilet Transfer (QC): 4 Assessment/Plan Assessment and Plan Assess & Plan/Chief Complaint Assessment: Debility Colon masses pathology pending Hematemesis UTI completed treatment since no growth to date on urine culture Delirium improved with Zyprexa Acute urinary retention resolved Hypertension Hyperlipidemia Dementia 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
[2021-12-14] MEDS: polyethylene glycoL POWDER 17 GM (MIRALAX) PACK PO SCH ×2 (09:00→21:23)
[2021-12-14] MEDS: SENNOSIDES 8.6 MG (SENOKOT) TAB PO SCH ×2 (09:00→21:23)
[2021-12-14] MEDS: lisINopril 20 MG (PRINIVIL) TABLET PO SCH (09:38)
[2021-12-14] MEDS: amLODIPine 5 MG (NORVASC) TAB PO SCH (09:38)
[2021-12-14] MEDS: PANTOPRAZOLE 40 MG (PROTONIX) TAB PO SCH (09:38)
[2021-12-14] MEDS: DOCUSATE SODIUM 100 MG (COLACE) CAP PO SCH ×2 (09:38→21:23)
[2021-12-14] MEDS: MEMANTINE 10 MG (NAMENDA) TABLET PO SCH ×2 (09:38→21:23)
--- NOTE | 2021-12-14 11:27 | Physical Therapy Daily Note ---
PT Daily Note-Current Subjective Pt. up in recliner with family present. Pt. pleasant and agrees to Rx. Pt. comments that she is having a hard time coordinating her movement Pain Location: No Pain Reported Transfers SCALE: Activities may be completed with or without assistive devices. 3-Oxsjxzjprv-hilhdqi completes the activity by him/herself with no assistance from a helper. 5-Set-up or Clean-up Assistance-helper sets up or cleans up; patient completes activity. [place] assists only prior to or following the activity. 4-Supervision or Touching Assistance-helper provides verbal cues and/or touching/steadying and/or contact guard assistance as patient completes activity. Assistance may be provided throughout the activity or intermittently. 3-Partial/Moderate Assistance-helper does LESS THAN HALF the effort. [place] lifts, holds or supports trunk or limbs, but provides less than half the effort. 2-Substantial/Maximal Assistance-helper does MORE THAN HALF the effort. [place] lifts or holds trunk or limbs and provides more than half the effort. 8-Bjsypkjpq-okttew does ALL the effort. Patient does none of the effort to complete the activity. Or, the assistance of 2 or more helpers is required for the patient to complete the activity. If activity was not attempted, code reason: 7-Patient Refused. 9-Not Applicable-not attempted and the patient did not perform the activity before the current illness, exacerbation or injury. 10-Not Attempted due to Environmental Limitations-(lack of equipment, weather restraints, etc.). 88-Not Attempted due to Medical Conditions or Safety Concerns. sit to stand min to CGA from recliner and bed Weight Bearing Right Lower Extremity: Right Full Weight Bearing Left Lower Extremity: Left Full Weight Bearing Gait Training Does the Patient Walk?: Yes Gait Assistive Device: FWW 30 ft x 2 FWW uncoordinated movement, needs verbal cuing to initiate steps and instruction to stop and regain stability in LEs as pts knees melt and buckle while walking as well as uneven steps Exercises Seated Therapy Exercises: Ankle pumps, Sit to stand, Long arc quads, Hip flexion, Hip abd/add Seated Reps: 12 Treatments sit to stand , gait and seated EX Assessment Current Status: Good Progress PT Wall Insulation Sprayer Goals Wall Insulation Sprayer Goals PT Usp Goals Time Frame: Jan 04, 2022 Roll Left & Right (QC): 6 Sit to Lying (QC): 6 Lying-Sitting on Side/Bed(QC): 6 Sit to Stand (QC): 6 Chair/Dih-er-Qvhfg Xfer(QC): 6 Toilet Transfer (QC): 6 Car Transfer (QC): 6 Does the Patient Walk: Yes Walk 10 feet (QC): 6 Walk 50ft with 2 Turns (QC): 6 Walk 150 ft (QC): 6 Walking 10ft on Uneven Surface: 6 1 Step (curb) (QC): 6 4 Steps (QC): 6 12 Steps (QC): 4 Picking up an Object (QC): 6 Does the Pt use WC or Scooter?: No Wheel 50 feet with 2 turns (QC: 9 Wheel 150 feet: 9 PT Plan Treatment/Plan Treatment Plan: Continue Plan of Care Treatment Plan: Bed Mobility, Education, Functional Activity Apt, Functional Strength, Group Therapy, Gait, Safety, Therapeutic Exercise, Transfers Treatment Duration: Jan 24, 2022 Frequency: At least 5 of 7 days/Wk (IRF) Estimated Hrs Per Day: 1.5 hours per day Patient and/or Family Agrees t: Yes Safety Risks/Education Patient Education: Gait Training, Transfer Techniques, Correct Positioning, Safety Issues Teaching Recipient: Patient Teaching Methods: Demonstration, Discussion Response to Teaching: Verbalize Understanding, Return Demonstration, Reinforcement Needed Time/GCodes Time In: 1110 Time Out: 1125 Total Billed Treatment Time: 15 Total Billed Treatment 1,GT 15m SCOTTIE MANCERA PLAY LEADER Dec 14, 2021 11:27
[2021-12-14 19:45] VITALS: BP 154/80
[2021-12-14] MEDS: OLANZapine 2.5 MG (ZyPREXA) TAB PO SCH (21:23)
[2021-12-15] MEDS: SUCRALFATE 1 GM (CARAFATE) TAB PO SCH ×4 (06:51→21:50)
[2021-12-15] MEDS: BETHANECHOL 25 MG (URECHOLINE) TAB PO SCH (06:51)
[2021-12-15] MEDS: inSUlin ASPART (NovoLOG) 1 UNIT/0.01 ML (CHARGE PER UNIT) SC SCH ×4 (06:52→21:51)
[2021-12-15 07:05] VITALS: BP 155/83
[2021-12-15] MEDS: lisINopril 20 MG (PRINIVIL) TABLET PO SCH (08:00)
[2021-12-15] MEDS: SENNOSIDES 8.6 MG (SENOKOT) TAB PO SCH ×2 (08:00→21:50)
[2021-12-15] MEDS: DOCUSATE SODIUM 100 MG (COLACE) CAP PO SCH ×2 (08:00→21:50)
[2021-12-15] MEDS: PANTOPRAZOLE 40 MG (PROTONIX) TAB PO SCH (08:00)
[2021-12-15] MEDS: MEMANTINE 10 MG (NAMENDA) TABLET PO SCH ×2 (08:00→21:50)
[2021-12-15] MEDS: GLIMEPIRIDE 1 MG (AMARYL) TAB PO SCH ×2 (08:00→17:13)
[2021-12-15] MEDS: amLODIPine 5 MG (NORVASC) TAB PO SCH (08:00)
[2021-12-15] MEDS: polyethylene glycoL POWDER 17 GM (MIRALAX) PACK PO SCH ×2 (08:00→21:51)
--- NOTE | 2021-12-15 08:04 | PM&R Progress Note ---
Subjective HPI/CC On Admission Date Seen by Provider: Dec 15, 2021 Time Seen by Provider: 12:30 Subjective/Events-last exam 12/15/2021: Doing better at bedside No pain reported Eating well Glucose noted 12/14/2021: Slept all night long last night Feels really good Zyprexa taking care of the delirium No other concerns No falls 12/13/2021: Patient seems to be doing better No pain reported Less confusion Zyprexa given last night and it appears to have helped sleep Checked meds and labs Review of Systems General: Fatigue, Malaise Objective Exam Vital Signs Vital Signs Date Time Temp Pulse Resp B/P (MAP) Pulse Ox O2 Delivery O2 Flow Rate FiO2 12/15/21 09:00 Room Air 12/15/21 07:05 36.4 89 18 155/83 (107) 96 Capillary Refill : General Appearance: No Apparent Distress, WD/WN, Chronically ill, Obese HEENT: PERRL/EOMI, Normal ENT Inspection, Pharynx Normal Neck: Full Range of Motion, Normal Inspection, Non Tender, Supple, Carotid Bruit Respiratory: Chest Non Tender, Lungs Clear, Normal Breath Sounds, No Accessory Muscle Use, No Respiratory Distress Cardiovascular: Regular Rate, Rhythm, No Edema, No Gallop, No JVD, No Murmur, Normal Peripheral Pulses Gastrointestinal: Normal Bowel Sounds, No Organomegaly, No Pulsatile Mass, Non Tender, Soft Back: Normal Inspection, No CVA Tenderness, No Vertebral Tenderness Extremity: Normal Capillary Refill, Normal Inspection, Normal Range of Motion, Non Tender, No Calf Tenderness, No Pedal Edema Neurologic/Psychiatric: Alert, Oriented x3, Normal Mood/Affect, senior maintenance mechanic II-XII Norm as Tested, Abnormal Gait, Disoriented, Motor Weakness (Weakness of legs 3/5) Skin: Normal Color, Warm/Dry Lymphatic: No Adenopathy Results/Procedures Lab Patient resulted labs reviewed. FIM Transfers Therapy Code Descriptions/Definitions Functional [place] Measure: 0=Not Assessed/NA 4=Minimal Assistance 1=Total Assistance 5=Supervision or Setup 2=Maximal Assistance 6=Modified [place] 3=Moderate Assistance 7=Complete IndependenceSCALE: Activities may be completed with or without assistive devices. 4-Usloulxewi-kfkcmgx completes the activity by him/herself with no assistance from a helper. 5-Set-up or Clean-up Assistance-helper sets up or cleans up; patient completes activity. [place] assists only prior to or following the activity. 4-Supervision or Touching Assistance-helper provides verbal cues and/or touching/steadying and/or contact guard assistance as patient completes activity. Assistance may be provided throughout the activity or intermittently. 3-Partial/Moderate Assistance-helper does LESS THAN HALF the effort. [place] lift s, holds or supports trunk or limbs, but provides less than half the effort. 2-Substantial/Maximal Assistance-helper does MORE THAN HALF the effort. [place] lifts or holds trunk or limbs and provides more than half the effort. 3-Xdtsovlri-edtjhu does ALL the effort. Patient does none of the effort to complete the activity. Or, the assistance of 2 or more helpers is required for the patient to complete the activity. If activity was not attempted, code reason: 7-Patient Refused. 9-Not Applicable-not attempted and the patient did not perform the activity before the current illness, exacerbation or injury. 10-Not Attempted due to Environmental Limitations-(lack of equipment, weather restraints, etc.). 88-Not Attempted due to Medical Conditions or Safety Concerns. Roll Left to Right (QC): 4 Sit to Lying (QC): 4 Sit to Stand (QC): 4 Chair/Vyc-hl-Hojxl Xfer(QC): 4 Car Transfer (QC): 4 Gait Training Does the Patient Walk?: Yes Distance: 150'x2, 120' Walk 10 feet (QC): 4 Walk 50 ft with 2 Turns(QC): 4 Walk 150 ft (QC): 4 Walking 10ft/uneven surface-QC: 4 Gait Persons Needed: 1 Gait Assistive Device: FWW Wheelchair Training Does the Pt Use a Wheelchair?: No Wheel 50 ft with 2 turns (QC): 9 Wheel 150 ft (QC): 9 Stair Training #of Steps: 4 1 Step (curb) (QC): 3 4 Steps (QC): 3 12 Steps (QC): 88 Balance Picking up an Object (QC): 4 ADL-Treatment Eating (QC): 5 Oral Hygiene (QC): 4 (CGA) Shower/Bathe Self (QC): 3 Upper Body Dressing (QC): 3 Lower Body Dressing (QC): 3 On/Off Footwear (QC): 2 Toileting Hygiene (QC): 3 Toilet Transfer (QC): 4 Assessment/Plan Assessment and Plan Assess & Plan/Chief Complaint Assessment: Debility Colon masses pathology pending Hematemesis UTI completed treatment since no growth to date on urine culture Delirium improved with Zyprexa Acute urinary retention resolved Hypertension Hyperlipidemia Dementia 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
[2021-12-15 19:43] VITALS: BP 155/69
[2021-12-15] MEDS: OLANZapine 2.5 MG (ZyPREXA) TAB PO SCH (21:51)
--- NOTE | 2021-12-16 05:32 | PM&R Progress Note ---
Subjective HPI/CC On Admission Date Seen by Provider: Dec 16, 2021 Time Seen by Provider: 08:30 Subjective/Events-last exam 12/16/2021: Pt is doing pretty well Bowels moved in the shower Will discontinue Urecholine, minimizing urinary breaks at night 12/15/2021: Doing better at bedside No pain reported Eating well Glucose noted 12/14/2021: Slept all night long last night Feels really good Zyprexa taking care of the delirium No other concerns No falls 12/13/2021: Patient seems to be doing better No pain reported Less confusion Zyprexa given last night and it appears to have helped sleep Checked meds and labs Review of Systems General: Fatigue, Malaise Neurological: Confusion Objective Exam Vital Signs Vital Signs Date Time Temp Pulse Resp B/P (MAP) Pulse Ox O2 Delivery O2 Flow Rate FiO2 12/16/21 21:00 98 Room Air 12/16/21 19:14 36.4 91 16 131/76 (94) Capillary Refill : General Appearance: No Apparent Distress, WD/WN, Chronically ill, Obese HEENT: PERRL/EOMI, Normal ENT Inspection, Pharynx Normal Neck: Full Range of Motion, Normal Inspection, Non Tender, Supple, Carotid Bruit Respiratory: Chest Non Tender, Lungs Clear, Normal Breath Sounds, No Accessory Muscle Use, No Respiratory Distress Cardiovascular: Regular Rate, Rhythm, No Edema, No Gallop, No JVD, No Murmur, Normal Peripheral Pulses Gastrointestinal: Normal Bowel Sounds, No Organomegaly, No Pulsatile Mass, Non Tender, Soft Back: Normal Inspection, No CVA Tenderness, No Vertebral Tenderness Extremity: Normal Capillary Refill, Normal Inspection, Normal Range of Motion, Non Tender, No Calf Tenderness, No Pedal Edema Neurologic/Psychiatric: Alert, Oriented x3, Normal Mood/Affect, manager contact II-XII Norm as Tested, Abnormal Gait, Disoriented, Motor Weakness (Weakness of legs 3/5) Skin: Normal Color, Warm/Dry Lymphatic: No Adenopathy Results/Procedures Lab Laboratory Tests 12/16/21 06:35 12/16/21 08:38 Patient resulted labs reviewed. FIM Transfers Therapy Code Descriptions/Definitions Functional [place] Measure: 0=Not Assessed/NA 4=Minimal Assistance 1=Total Assistance 5=Supervision or Setup 2=Maximal Assistance 6=Modified [place] 3=Moderate Assistance 7=Complete IndependenceSCALE: Activities may be completed with or without assistive devices. 8-Xyhqvuxsmm-ymqdejs completes the activity by him/herself with no assistance from a helper. 5-Set-up or Clean-up Assistance-helper sets up or cleans up; patient completes activity. [place] assists only prior to or following the activity. 4-Supervision or Touching Assistance-helper provides verbal cues and/or touching/steadying and/or contact guard assistance as patient completes activity. Assistance may be provided throughout the activity or intermittently. 3-Partial/Moderate Assistance-helper does LESS THAN HALF the effort. [place] lifts, holds or supports trunk or limbs, but provides less than half the effort. 2-Substantial/Maximal Assistance-helper does MORE THAN HALF the effort. [place] lifts or holds trunk or limbs and provides more than half the effort. 2-Ldtttduih-igqtwe does ALL the effort. Patient does none of the effort to complete the activity. Or, the assistance of 2 or more helpers is required for the patient to complete the activity. If activity was not attempted, code reason: 7-Patient Refused. 9-Not Applicable-not attempted and the patient did not perform the activity before the current illness, exacerbation or injury. 10-Not Attempted due to Environmental Limitations-(lack of equipment, weather restraints, etc.). 88-Not Attempted due to Medical Conditions or Safety Concerns. Roll Left to Right (QC): 4 Sit to Lying (QC): 4 Sit to Stand (QC): 4 Chair/Ycf-vx-Yohab Xfer(QC): 4 Car Transfer (QC): 4 Gait Training Does the Patient Walk?: Yes Distance: 150'x2, 120' Walk 10 feet (QC): 4 Walk 50 ft with 2 Turns(QC): 4 Walk 150 ft (QC): 4 Walking 10ft/uneven surface-QC: 4 Gait Persons Needed: 1 Gait Assistive Device: FWW Wheelchair Training Does the Pt Use a Wheelchair?: No Wheel 50 ft with 2 turns (QC): 9 Wheel 150 ft (QC): 9 Stair Training #of Steps: 4 1 Step (curb) (QC): 3 4 Steps (QC): 3 12 Steps (QC): 88 Balance Picking up an Object (QC): 4 ADL-Treatment Eating (QC): 5 Oral Hygiene (QC): 4 (CGA) Shower/Bathe Self (QC): 3 Upper Body Dressing (QC): 3 Lower Body Dressing (QC): 3 On/Off Footwear (QC): 2 Toileting Hygiene (QC): 3 Toilet Transfer (QC): 4 Assessment/Plan Assessment and Plan Assess & Plan/Chief Complaint Assessment: Debility Colon masses pathology pending Hematemesis UTI completed treatment since no growth to date on urine culture Delirium improved with Zyprexa Acute urinary retention resolved Hypertension Hyperlipidemia Dementia 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
[2021-12-16] MEDS: SUCRALFATE 1 GM (CARAFATE) TAB PO SCH ×4 (06:01→20:44)
[2021-12-16] MEDS: inSUlin ASPART (NovoLOG) 1 UNIT/0.01 ML (CHARGE PER UNIT) SC SCH ×4 (06:01→20:45)
[2021-12-16 07:06] LABS: ALBUMIN 3.3 GM/DL (3.2-4.5)
[2021-12-16 07:07] LABS: POTASSIUM 3.7 MMOL/L (3.6-5.0)
[2021-12-16 07:08] LABS: CALCIUM 8.6 MG/DL (8.5-10.1)
[2021-12-16 07:09] LABS: TOTAL PROTEIN 5.7 GM/DL (6.4-8.2)
[2021-12-16 07:11] LABS: BILIRUBIN,TOTAL 0.3 MG/DL (0.1-1.0)
[2021-12-16 07:12] LABS: CREATININE SERUM 0.74 MG/DL (0.60-1.30)
[2021-12-16 08:00] VITALS: BP 170/74
[2021-12-16] MEDS: GLIMEPIRIDE 1 MG (AMARYL) TAB PO SCH ×2 (08:02→17:24)
[2021-12-16] MEDS: MEMANTINE 10 MG (NAMENDA) TABLET PO SCH ×2 (08:02→20:44)
[2021-12-16] MEDS: PANTOPRAZOLE 40 MG (PROTONIX) TAB PO SCH (08:02)
[2021-12-16] MEDS: lisINopril 20 MG (PRINIVIL) TABLET PO SCH (08:02)
[2021-12-16] MEDS: amLODIPine 5 MG (NORVASC) TAB PO SCH (08:02)
[2021-12-16] MEDS: polyethylene glycoL POWDER 17 GM (MIRALAX) PACK PO SCH ×2 (08:13→20:44)
[2021-12-16] MEDS: DOCUSATE SODIUM 100 MG (COLACE) CAP PO SCH ×2 (08:13→20:44)
[2021-12-16] MEDS: SENNOSIDES 8.6 MG (SENOKOT) TAB PO SCH ×2 (08:13→20:44)
--- NOTE | 2021-12-16 08:45 | Occupational Ther Daily Note ---
OT Current Status-Daily Note Subjective Pt denies pain, agreeable to shower. Appearance Pt left sitting in recliner, all needs within reach at OT departure. Mental Status/Objective Patient Orientation: Person, Place, Situation Attachments: IV ADL-Treatment Therapy Code Descriptions/Definitions Functional [place] Measure: 0=Not Assessed/NA 4=Minimal Assistance 1=Total Assistance 5=Supervision or Setup 2=Maximal Assistance 6=Modified [place] 3=Moderate Assistance 7=Complete IndependenceSCALE: Activities may be completed with or without assistive devices. 6-Qdrdtcwovp-heqodvv completes the activity by him/herself with no assistance from a helper. 5-Set-up or Clean-up Assistance-helper sets up or cleans up; patient completes activity. [place] assists only prior to or following the activity. 4-Supervision or Touching Assistance-helper provides verbal cues and/or touching/steadying and/or contact guard assistance as patient completes activity. Assistance may be provided throughout the activity or intermittently. 3-Partial/Moderate Assistance-helper does LESS THAN HALF the effort. [place] lifts, holds or supports trunk or limbs, but provides less than half the effort. 2-Substantial/Maximal Assistance-helper does MORE THAN HALF the effort. [place] lifts or holds trunk or limbs and provides more than half the effort. 5-Etrcyuigu-ysfihe does ALL the effort. Patient does none of the effort to complete the activity. Or, the assistance of 2 or more helpers is required for the patient to complete the activity. If activity was not attempted, code reason: 7-Patient Refused. 9-Not Applicable-not attempted and the patient did not perform the activity before the current illness, exacerbation or injury. 10-Not Attempted due to Environmental Limitations-(lack of equipment, weather restraints, etc.). 88-Not Attempted due to Medical Conditions or Safety Concerns. Oral Hygiene (QC): 3 Shower/Bathe Self (QC): 4 Upper Body Dressing (QC): 3 Lower Body Dressing (QC): 3 On/Off Footwear: 2 Toileting Hygiene (QC): 4 Toilet Transfer (QC): 4 Shower performed; 100% completed in sitting. Pt likely does not wash feet at home as she frequently states that she just lets the soapy water run down her legs. OT instructed pt on compensatory method with placing washcloth on floor and rubbing feet along soapy wash cloth. Pt able to initiate leaning anteriorly (with one hand on grab bar) in order to wash buttocks. Min cues to rinse body. Clothing donned seated on shower bench. OT instructed pt on compensatory method to don bra overhead like a t-shirt. Post demonstration, pt was able to fasten, thread UE's through straps and bring overhead with verbal cues only. Min a to pull down around torso, however anticipate improved performance if pt wasn't still slightly damp. Set up assist when donning t-shirt. Pt continues to be hesitant to use tube skiver when donning LB clothing. She is able to thread feet into shorts without tube skiver but requires use when threading feet into brief. Mod-max verbal cues and min a needed when donning brief. Steadying assist required as she stood to manage clothing up to waist. Dependent to don Abdi hose. Attempt to complete oral care in standing, however pt with increased anxiety and unsteadiness when removing 1-2 hands from sink. Activity modified to sitting with set up assist. Education OT Patient Education: Correct positioning, Energy conservation, Modified ADL te chniques, Progress toward Goal/Update tx plan, Purpose of tx/functional activities, Rehab process, Safety issues, Transfer techniques, Use of adapted equipment Teaching Recipient: Patient Teaching Methods: Demonstration, Discussion Response to Teaching: Verbalize Understanding, Return Demonstration, Reinforcement Needed OT Short Term Goals Short Term Goals Time Frame: Dec 19, 2021 Eatin Oral hygiene: 5 Toileting hygiene: 4 Shower/bathe self: 4 Upper body dressin Lower body dressin Putting on/taking off footwear: 2 OT Nursing Home Goals Nursing Home Goals Time Frame: Dec 25, 2021 Eating (QC): 5 Oral Hygiene (QC): 6 Toileting Hygiene (QC): 6 Shower/Bathe Self (QC): 4 Upper Body Dressing (QC): 5 (set up for shirts, Min a for bra) Lower Body Dressing (QC): 3 On/Off Footwear (QC): 2 (with AE) Additional Goals: 1-Demonstrate ADL Tasks, 2-Verbalize Understanding, 3- ImproveStrength/Pat 1=Demonstrate adherence to instructed precautions during ADL tasks. 2=Patient will verbalize/demonstrate understanding of assistive devices/modifications for ADL. 3=Patient will improve strength/tolerance for activity to enable patient to perform ADL's. OT Education/Plan Problem List/Assessment Assessment: Decreased Activ Tolerance, Decreased Safety Aware, Decreased UE Strength, Edema, Impaired Cognition, Impaired Funct Balance, Impaired Self-Care Skills Discharge Recommendations Plan/Recommendations: Continue POC Therapy Discharge Recommendati: Post Acute OT Equpiment Recommendations-D/C: Pipe Line Gauger, [place] Treatment Plan/Plan of Care Treatment,Training & Education: Yes Patient would benefit from OT for education, treatment and training to promote independence in ADL's, mobility, safety and/or upper extremity function for ADL's. Plan of Care: ADL Retraining, Caregiver Training, Cognitive Retraining, Functional Mobility, Group Exercise/Act as Ind, UE Funct Exercise/Act Treatment Duration: Dec 25, 2021 Frequency: At least 5 of 7 days/Wk (IRF) Estimated Hrs Per Day: 1.5 hours per day (75-90 min/day ) Agreement: Yes Rehab Potential: Fair Time/GCodes Start Time: 07:35 Stop Time: 08:50 Total Time Billed (hr/min): 75 Billed Treatment Time 1 visit ADL x5 Dayna Crandall OT Dec 16, 2021 08:45
[2021-12-16 08:48] LABS: BASOPHILS % (AUTO) 1 % (0-10); EOSINOPHILS # (AUTO) 0.2 10^3/uL (0.0-0.3); EOSINOPHILS % (AUTO) 4 % (0-10); HEMATOCRIT 33 % (35-52); HEMOGLOBIN 10.8 g/dL (11.5-16.0); LYMPHOCYTES # (AUTO) 1.1 10^3/uL (1.0-4.0); LYMPHOCYTES % (AUTO) 24 % (12-44); MEAN CORPUSCULAR HEMOGLOBIN 28 pg (25-34); MEAN CORPUSCULAR HGB CONC 33 g/dL (32-36); MEAN CORPUSCULAR VOLUME 83 fL (80-99); MEAN PLATELET VOLUME 8.8 fL (9.0-12.2); MONOCYTES # (AUTO) 0.3 10^3/uL (0.0-1.0); MONOCYTES % (AUTO) 7 % (0-12); NEUTROPHILS % (AUTO) 64 % (42-75); PLATELET COUNT 238 10^3/uL (130-400); WHITE BLOOD COUNT 4.6 10^3/uL (4.3-11.0)
[2021-12-16 09:27] VITALS: BP 142/67
--- NOTE | 2021-12-16 10:28 | Speech Therapy Progress Note ---
Therapy Progress Note OT contacted Speech Pathology on this date reporting the patient displaying increased confusion. Due to this report, speech pathology has requested re- consultation to complete an additional cognitive evaluation, as well as, discussions with the patient's to assess for increased confusion versus fluctuations with the patient's baseline dementia diagnosis. The evaluation will take place on 12/17/21. RHIANNA HANSON Dec 16, 2021 10:28
--- NOTE | 2021-12-16 10:51 | Occupational Ther Daily Note ---
OT Current Status-Daily Note Subjective Pt with increased confusion this date, requires simplifications of commands. Appearance Pt returned to sitting in recliner, all needs within reach. Mental Status/Objective Patient Orientation: Person, Confused, Place Attachments: IV ADL-Treatment Therapy Code Descriptions/Definitions Functional [place] Measure: 0=Not Assessed/NA 4=Minimal Assistance 1=Total Assistance 5=Supervision or Setup 2=Maximal Assistance 6=Modified [place] 3=Moderate Assistance 7=Complete IndependenceSCALE: Activities may be completed with or without assistive devices. 9-Inbgygkpeb-xkkqbng completes the activity by him/herself with no assistance from a helper. 5-Set-up or Clean-up Assistance-helper sets up or cleans up; patient completes activity. [place] assists only prior to or following the activity. 4-Supervision or Touching Assistance-helper provides verbal cues and/or touching/steadying and/or contact guard assistance as patient completes activity. Assistance may be provided throughout the activity or intermittently. 3-Partial/Moderate Assistance-helper does LESS THAN HALF the effort. [place] lifts, holds or supports trunk or limbs, but provides less than half the effort. 2-Substantial/Maximal Assistance-helper does MORE THAN HALF the effort. [place] lifts or holds trunk or limbs and provides more than half the effort. 8-Teeurnlrn-awpbhl does ALL the effort. Patient does none of the effort to complete the activity. Or, the assistance of 2 or more helpers is required for the patient to complete the activity. If activity was not attempted, code reason: 7-Patient Refused. 9-Not Applicable-not attempted and the patient did not perform the activity before the current illness, exacerbation or injury. 10-Not Attempted due to Environmental Limitations-(lack of equipment, weather restraints, etc.). 88-Not Attempted due to Medical Conditions or Safety Concerns. On/Off Footwear: 3 Toileting Hygiene (QC): 4 Toilet Transfer (QC): 4 OT issued and instructed pt on use of LHSH for improved ease when donning footwear. Mod verbal and tactile cues still needed post instruction. Pt completed x3, improves to min a. Repetition and practice will be needed for retention. Assist to tie. Education OT Patient Education: Correct positioning, Purpose of tx/functional activities, Safety issues, Use of adapted equipment Teaching Recipient: Patient Teaching Methods: Demonstration, Discussion Response to Teaching: Verbalize Understanding, Return Demonstration, Reinforcement Needed OT Short Term Goals Short Term Goals Time Frame: Dec 19, 2021 Eatin Oral hygiene: 5 Toileting hygiene: 4 Shower/bathe self: 4 Upper body dressin Lower body dressin Putting on/taking off footwear: 2 OT Escalator Operator Goals Nursing Home Goals Time Frame: Dec 25, 2021 Eating (QC): 5 Oral Hygiene (QC): 6 Toileting Hygiene (QC): 6 Shower/Bathe Self (QC): 4 Upper Body Dressing (QC): 5 (set up for shirts, Min a for bra) Lower Body Dressing (QC): 3 On/Off Footwear (QC): 2 (with AE) Additional Goals: 1-Demonstrate ADL Tasks, 2-Verbalize Understanding, 3- ImproveStrength/Pat 1=Demonstrate adherence to instructed precautions during ADL tasks. 2=Patient will verbalize/demonstrate understanding of assistive devices/modifications for ADL. 3=Patient will improve strength/tolerance for activity to enable patient to perform ADL's. OT Education/Plan Problem List/Assessment Assessment: Decreased Activ Tolerance, Decreased Safety Aware, Edema, Impaired Cognition, Impaired Funct Balance, Impaired I ADL's, Impaired Self-Care Skills Discharge Recommendations Plan/Recommendations: Continue POC Therapy Discharge Recommendati: Post Acute OT Equpiment Recommendations-D/C: Constantin Storey Treatment Plan/Plan of Care Patient would benefit from OT for education, treatment and training to promote independence in ADL's, mobility, safety and/or upper extremity function for ADL's. Plan of Care: ADL Retraining, Caregiver Training, Cognitive Retraining, Functional Mobility, Group Exercise/Act as Ind, UE Funct Exercise/Act Treatment Duration: Dec 25, 2021 Frequency: At least 5 of 7 days/Wk (IRF) Estimated Hrs Per Day: 1.5 hours per day (75-90 min/day ) Agreement: Yes Rehab Potential: Fair Time/GCodes Start Time: 10:30 Stop Time: 10:45 Total Time Billed (hr/min): 15 Billed Treatment Time 1 visit ADL Dayna Crandall OT Dec 16, 2021 10:51
--- NOTE | 2021-12-16 12:21 | Physical Therapy Daily Note ---
PT Daily Note-Current Subjective Pt sitting in recliner upon arrival. Pt agrees to PT. Pain Location: No Pain Reported Mental Status Patient Orientation: Person, Confused, Place Transfers SCALE: Activities may be completed with or without assistive devices. 1-Gcuhoigbzb-hadltmu completes the activity by him/herself with no assistance from a helper. 5-Set-up or Clean-up Assistance-helper sets up or cleans up; patient completes activity. [place] assists only prior to or following the activity. 4-Supervision or Touching Assistance-helper provides verbal cues and/or touching/steadying and/or contact guard assistance as patient completes activity. Assistance may be provided throughout the activity or intermittently. 3-Partial/Moderate Assistance-helper does LESS THAN HALF the effort. [place] lifts, holds or supports trunk or limbs, but provides less than half the effort. 2-Substantial/Maximal Assistance-helper does MORE THAN HALF the effort. [place] lifts or holds trunk or limbs and provides more than half the effort. 6-Ounmhmybn-heezti does ALL the effort. Patient does none of the effort to complete the activity. Or, the assistance of 2 or more helpers is required for the patient to complete the activity. If activity was not attempted, code reason: 7-Patient Refused. 9-Not Applicable-not attempted and the patient did not perform the activity before the current illness, exacerbation or injury. 10-Not Attempted due to Environmental Limitations-(lack of equipment, weather restraints, etc.). 88-Not Attempted due to Medical Conditions or Safety Concerns. Sit to Stand (QC): 4 Toilet Transfer (QC): 4 Weight Bearing Right Lower Extremity: Right Full Weight Bearing Left Lower Extremity: Left Full Weight Bearing Gait Training Does the Patient Walk?: Yes Distance: 100' x2, 50' x2 Walk 10 feet (QC): 4 Walk 50 ft with 2 Turns(QC): 4 Gait Persons Needed: 1 Gait Assistive Device: FWW Exercises NuStep Minutes: 5 NuStep Workload: 5 Treatments TF to standing and needs to use BR. Pt amb. in hallway, taking RB as needed. Pt uses NuStep for short period before reporting she needed to stop. Pt amb. in hallway again before returning to room to rest at end of tx. All needs met, call light in hand. Assessment Current Status: Fair Progress Pt fatigues easily and needs several RB during tx. 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 PT Fpc Goals Corn Detasseler Goals PT Corn Detasseler Goals Time Frame: Jan 04, 2022 Roll Left & Right (QC): 6 Sit to Lying (QC): 6 Lying-Sitting on Side/Bed(QC): 6 Sit to Stand (QC): 6 Chair/Rgq-ok-Soaae Xfer(QC): 6 Toilet Transfer (QC): 6 Car Transfer (QC): 6 Does the Patient Walk: Yes Walk 10 feet (QC): 6 Walk 50ft with 2 Turns (QC): 6 Walk 150 ft (QC): 6 Walking 10ft on Uneven Surface: 6 1 Step (curb) (QC): 6 4 Steps (QC): 6 12 Steps (QC): 4 Picking up an Object (QC): 6 Does the Pt use WC or Scooter?: No Wheel 50 feet with 2 turns (QC: 9 Wheel 150 feet: 9 PT Plan Problem List Problem List: Activity Tolerance, Functional Strength, Safety, Gait Treatment/Plan Treatment Plan: Continue Plan of Care Treatment Plan: Bed Mobility, Education, Functional Activity Pat, Functional Strength, Group Therapy, Gait, Safety, Therapeutic Exercise, Transfers Treatment Duration: Jan 24, 2022 Frequency: At least 5 of 7 days/Wk (IRF) Estimated Hrs Per Day: 1.5 hours per day Patient and/or Family Agrees t: Yes Safety Risks/Education Patient Education: Gait Training, Transfer Techniques, Correct Positioning, Safety Issues Teaching Recipient: Patient Teaching Methods: Discussion Response to Teaching: Verbalize Understanding Time/GCodes Time In: 1400 Time Out: 1430 Total Billed Treatment Time: 30 Total Billed Treatment 1, GT x2 (30m), FA (15m) & EX (15m) OFELIA ALEXANDER KELLY MACHINE OPERATOR Dec 16, 2021 12:21
--- NOTE | 2021-12-16 15:21 | Oncology Consultation ---
Visit Information Visit Information Date of Admission Dec 12, 2021 at 13:35 Attending Physician Mayra Bowden DO Admitting Physician Admitting Physician: Mayra Bodwen DO Attending Physician: Mayra Bowden DO Chief Complaint Newly diagnosed colon cancer Interval History Ms. Martinez is 81 year old white female presented to the ER with abdominal pain and weakness. GI scope by Dr Parks showed multiple polyps and lesions in the colon. Multiple biopsies were done last week and sent to pathology. One the colon lesion showed colonic adenocarcinoma. We are called for management. CT of chest abd/pelvis showed NO remote mets. CEA 12/12/2021: normal 2.5 Pt is currently staying at the rehab floor and goal is to go home. She has good family support. I consulted the patient on: 12/16/21 15:15 Time Seen by Provider: 13:30 Review of Systems Constitutional: weakness Respiratory: no symptoms reported Gastrointestinal: abdominal pain Psychiatric/Neurological: Other (mild alzembers disease) Health Status Allergies Coded Allergies: Penicillins (Unverified Allergy, Intermediate, Rash, 09/03/21) Sulfa (Sulfonamide Antibiotics) (Unverified Allergy, Intermediate, Rash, 09/03/21) Home Medications Aspirin (Aspirin EC) 81 Mg Tablet.dr, 81 MG PO DAILY, (Reported) Calcium Carbonate (Calcium Carbonate) 600 Mg Calcium (1500 Mg) Tablet, 600 MG PO DAILY, (Reported) Diphenhydramine HCl (Diphenhydramine HCl) 25 Mg Capsule, 25 MG PO BID, (Reported) Fluticasone Propionate (Flonase Allergy Relief) 50 Mcg/Actuation [place].susp, 1-2 SPRAY NSEACH DAILY PRN for CONGESTION, (Reported) Glimepiride (Glimepiride) 1 Mg Tablet, 1 MG PO BID, (Reported) Lisinopril (Lisinopril) 20 Mg Tablet, 20 MG PO DAILY, #90 Prescribed by: MAYRA BOWDEN on 11/27/21 0911 Loperamide HCl (Loperamide) 2 Mg Capsule, 2 MG PO QID PRN for DIARRHEA, (Reported) Meclizine HCl (Meclizine HCl) 25 Mg Tablet, 25 MG PO BID, (Reported) Memantine HCl (Memantine HCl) 10 Mg Tablet, 10 MG PO BID, (Reported) Metformin HCl (Metformin HCl) 1,000 Mg Tablet, 1,000 MG PO BID, (Reported) [place]-3S/Dha/Epa/Fish Oil (Fish Oil [place]-3 Softgel) 980 Mg-253 Mg-647 Mg-1,400 Mg Capsule.dr, 1 EACH PO BID, (Reported) Sodium Chloride (Sodium Chloride) 1 Gram Tab, 1 GM PO BID, (Reported) YDI-Zdymhk-Ysupuq Hx Patient Social History Marrital Status: Employed/Student: retired Smoking Status: Never a Smoker Type Used: Cigarettes Alcohol Use?: No Have you traveled recently?: No Family Medical History Significant Family History: No Pertinent Family Hx Physical Exam Vital Signs Vital Signs - First Documented 12/12/21 15:09 Temp 36.0 Pulse 89 Resp 18 B/P (MAP) 132/61 (84) Pulse Ox 96 O2 Delivery Room Air Capillary Refill : Height, Weight, BMI Height: '" Weight: lbs. oz. kg; 37.57 BMI Method: General Appearance: No Apparent Distress HEENT: PERRL/EOMI Respiratory: No Accessory Muscle Use, No Respiratory Distress Cardiovascular: Regular Rate, Rhythm Gastrointestinal: Non Tender, Soft Extremity: Non Tender, Pedal Edema Neurologic/Psychiatric: Alert, Oriented x3, Normal Mood/Affect Data Review Labs Laboratory Tests 12/16/21 06:35 12/16/21 08:38 Laboratory Tests 12/13/21 15:20: Glucometer 158H 12/13/21 20:34: Glucometer 213H 12/14/21 06:16: Glucometer 185H 12/14/21 10:55: Glucometer 234H 12/14/21 15:39: Glucometer 227H 12/14/21 21:18: Glucometer 210H 12/15/21 06:44: Glucometer 184H 12/15/21 10:54: Glucometer 203H 12/15/21 15:23: Glucometer 243H 12/15/21 20:30: Glucometer 199H 12/16/21 05:49: Glucometer 204H 12/16/21 06:35: Chloride Level 109H, Carbon Dioxide Level 19L, Glucose Level 212H, Total Protein 5.7L 12/16/21 08:38: Hemoglobin 10.8L, Hematocrit 33L, Mean Platelet Volume 8.8L 12/16/21 10:42: Glucometer 306H Impression & Plan Impression & Plan IMP: 1. 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 NO remote mets. CEA not elevated 2. Anemia most likely from GI blood loss. 3. 81 year old female in rehab now. Rec: 1. Surgical resection with lymph nodes. I have told patient and her family. I also notified Dr Praks. 2. Please schedule patient to see me at the cancer center as out-pt after the surgery to discuss the pathology report and staging and treatment options. 3. Dr Bowden and Dr Parks to decide the hospital course and discharge plan. Thank you for the consultation. MARLEN WAN MD Dec 16, 2021 15:21
--- NOTE | 2021-12-16 15:24 | Physical Therapy Daily Note ---
PT Daily Note-Current Subjective Pt sitting in recliner upon arrival. Family & Sp present. Pt agrees to PT. Pain Location: No Pain Reported Mental Status Patient Orientation: Person, Confused, Place Transfers SCALE: Activities may be completed with or without assistive devices. 1-Xmxovnpbpn-ontmzyc completes the activity by him/herself with no assistance from a helper. 5-Set-up or Clean-up Assistance-helper sets up or cleans up; patient completes activity. [place] assists only prior to or following the activity. 4-Supervision or Touching Assistance-helper provides verbal cues and/or touching/steadying and/or contact guard assistance as patient completes activity. Assistance may be provided throughout the activity or intermittently. 3-Partial/Moderate Assistance-helper does LESS THAN HALF the effort. [place] lifts, holds or supports trunk or limbs, but provides less than half the effort. 2-Substantial/Maximal Assistance-helper does MORE THAN HALF the effort. [place] lifts or holds trunk or limbs and provides more than half the effort. 0-Rcuzerptl-fdifzn does ALL the effort. Patient does none of the effort to complete the activity. Or, the assistance of 2 or more helpers is required for the patient to complete the activity. If activity was not attempted, code reason: 7-Patient Refused. 9-Not Applicable-not attempted and the patient did not perform the activity before the current illness, exacerbation or injury. 10-Not Attempted due to Environmental Limitations-(lack of equipment, weather restraints, etc.). 88-Not Attempted due to Medical Conditions or Safety Concerns. Sit to Stand (QC): 4 Toilet Transfer (QC): 4 Weight Bearing Right Lower Extremity: Right Full Weight Bearing Left Lower Extremity: Left Full Weight Bearing Gait Training Does the Patient Walk?: Yes Distance: 100', 75', 100', 65' Walk 10 feet (QC): 4 Walk 50 ft with 2 Turns(QC): 4 Walk 150 ft (QC): 4 Gait Persons Needed: 1 Gait Assistive Device: FWW Exercises Seated Therapy Exercises: Ankle pumps, Long arc quads, Hip flexion Seated Reps: 10 Treatments TF to standing, amb. to BR. Pt amb. in hallway, taking a couple RB as needed. Pt completes Seated EX during RB. Pt returns to room to rest in recliner. All needs met, call light in hand. Assessment Current Status: Fair Progress VC given for sequencing at times and for safety. Pt fatigues, needing RB during tx. PT Bank Courier Goals Longterm Goals PT Longterm Goals Time Frame: Jan 04, 2022 Roll Left & Right (QC): 6 Sit to Lying (QC): 6 Lying-Sitting on Side/Bed(QC): 6 Sit to Stand (QC): 6 Chair/Ase-mk-Lfvwc Xfer(QC): 6 Toilet Transfer (QC): 6 Car Transfer (QC): 6 Does the Patient Walk: Yes Walk 10 feet (QC): 6 Walk 50ft with 2 Turns (QC): 6 Walk 150 ft (QC): 6 Walking 10ft on Uneven Surface: 6 1 Step (curb) (QC): 6 4 Steps (QC): 6 12 Steps (QC): 4 Picking up an Object (QC): 6 Does the Pt use WC or Scooter?: No Wheel 50 feet with 2 turns (QC: 9 Wheel 150 feet: 9 PT Plan Problem List Problem List: Activity Tolerance, Functional Strength, Safety, Gait Treatment/Plan Treatment Plan: Continue Plan of Care Treatment Plan: Bed Mobility, Education, Functional Activity Pat, Functional Strength, Group Therapy, Gait, Safety, Therapeutic Exercise, Transfers Treatment Duration: Jan 24, 2022 Frequency: At least 5 of 7 days/Wk (IRF) Estimated Hrs Per Day: 1.5 hours per day Patient and/or Family Agrees t: Yes Safety Risks/Education Patient Education: Issued Written HEP Teaching Recipient: Patient, Family, Significant Other Teaching Methods: Discussion Response to Teaching: Verbalize Understanding Time/GCodes Time In: 1400 Time Out: 1430 Total Billed Treatment Time: 30 Total Billed Treatment 1, GT (20m) & EX (10m) OFELIA ALEXANDER PUBLICATION DISTRIBUTOR Dec 16, 2021 15:24
[2021-12-16 19:14] VITALS: BP 131/76
[2021-12-16] MEDS: OLANZapine 2.5 MG (ZyPREXA) TAB PO SCH (20:44)
--- NOTE | 2021-12-17 06:13 | PM&R Progress Note ---
Subjective HPI/CC On Admission Date Seen by Provider: Dec 17, 2021 Time Seen by Provider: 09:00 Subjective/Events-last exam 12/17/2021: Pt is doing well Confusion is definitely noted and today she is clear Surgery consult by Dr. Parks and oncology 12/16/2021: Pt is doing pretty well Bowels moved in the shower Will discontinue Urecholine, minimizing urinary breaks at night 12/15/2021: Doing better at bedside No pain reported Eating well Glucose noted 12/14/2021: Slept all night long last night Feels really good Zyprexa taking care of the delirium No other concerns No falls 12/13/2021: Patient seems to be doing better No pain reported Less confusion Zyprexa given last night and it appears to have helped sleep Checked meds and labs Review of Systems General: Fatigue, Malaise Objective Exam Vital Signs Vital Signs Date Time Temp Pulse Resp B/P (MAP) Pulse Ox O2 Delivery O2 Flow Rate FiO2 12/17/21 09:26 97 Room Air 12/17/21 07:32 36.4 90 18 182/81 (114) Capillary Refill : General Appearance: No Apparent Distress, WD/WN, Chronically ill, Obese HEENT: PERRL/EOMI, Normal ENT Inspection, Pharynx Normal Neck: Full Range of Motion, Normal Inspection, Non Tender, Supple, Carotid Bruit Respiratory: Chest Non Tender, Lungs Clear, Normal Breath Sounds, No Accessory Muscle Use, No Respiratory Distress Cardiovascular: Regular Rate, Rhythm, No Edema, No Gallop, No JVD, No Murmur, Normal Peripheral Pulses Gastrointestinal: Normal Bowel Sounds, No Organomegaly, No Pulsatile Mass, Non Tender, Soft Back: Normal Inspection, No CVA Tenderness, No Vertebral Tenderness Extremity: Normal Capillary Refill, Normal Inspection, Normal Range of Motion, Non Tender, No Calf Tenderness, No Pedal Edema Neurologic/Psychiatric: Alert, Oriented x3, Normal Mood/Affect, business performance advisor II-XII Norm as Tested, Abnormal Gait, Disoriented, Motor Weakness (Weakness of legs 3/5) Skin: Normal Color, Warm/Dry Lymphatic: No Adenopathy Results/Procedures Lab Patient resulted labs reviewed. FIM Transfers Therapy Code Descriptions/Definitions Functional [place] Measure: 0=Not Assessed/NA 4=Minimal Assistance 1=Total Assistance 5=Supervision or Setup 2=Maximal Assistance 6=Modified [place] 3=Moderate Assistance 7=Complete IndependenceSCALE: Activities may be completed with or without assistive devices. 0-Ztcazudgcp-cktnxuv completes the activity by him/herself with no assistance from a helper. 5-Set-up or Clean-up Assistance-helper sets up or cleans up; patient completes a ctivity. [place] assists only prior to or following the activity. 4-Supervision or Touching Assistance-helper provides verbal cues and/or touching/steadying and/or contact guard assistance as patient completes activity. Assistance may be provided throughout the activity or intermittently. 3-Partial/Moderate Assistance-helper does LESS THAN HALF the effort. [place] lifts, holds or supports trunk or limbs, but provides less than half the effort. 2-Substantial/Maximal Assistance-helper does MORE THAN HALF the effort. [place] lifts or holds trunk or limbs and provides more than half the effort. 6-Tscbgnzgv-mxhdhp does ALL the effort. Patient does none of the effort to complete the activity. Or, the assistance of 2 or more helpers is required for the patient to complete the activity. If activity was not attempted, code reason: 7-Patient Refused. 9-Not Applicable-not attempted and the patient did not perform the activity before the current illness, exacerbation or injury. 10-Not Attempted due to Environmental Limitations-(lack of equipment, weather restraints, etc.). 88-Not Attempted due to Medical Conditions or Safety Concerns. Roll Left to Right (QC): 4 Sit to Lying (QC): 4 Sit to Stand (QC): 4 Chair/Yfk-et-Ukjnp Xfer(QC): 4 Car Transfer (QC): 4 Gait Training Does the Patient Walk?: Yes Distance: 100', 75', 100', 65' Walk 10 feet (QC): 4 Walk 50 ft with 2 Turns(QC): 4 Walk 150 ft (QC): 4 Walking 10ft/uneven surface-QC: 4 Gait Persons Needed: 1 Gait Assistive Device: FWW Wheelchair Training Does the Pt Use a Wheelchair?: No Wheel 50 ft with 2 turns (QC): 9 Wheel 150 ft (QC): 9 Stair Training #of Steps: 4 1 Step (curb) (QC): 3 4 Steps (QC): 3 12 Steps (QC): 88 Balance Picking up an Object (QC): 4 ADL-Treatment Eating (QC): 5 Oral Hygiene (QC): 3 Shower/Bathe Self (QC): 4 Upper Body Dressing (QC): 3 Lower Body Dressing (QC): 3 On/Off Footwear (QC): 3 Toileting Hygiene (QC): 4 Toilet Transfer (QC): 4 Assessment/Plan Assessment and Plan Assess & Plan/Chief Complaint Assessment: Debility Colon masses pathology pending Hematemesis UTI completed treatment since no growth to date on urine culture Delirium improved with Zyprexa Acute urinary retention resolved Hypertension Hyperlipidemia Dementia 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
[2021-12-17] MEDS: inSUlin ASPART (NovoLOG) 1 UNIT/0.01 ML (CHARGE PER UNIT) SC SCH ×4 (06:31→20:39)
[2021-12-17] MEDS: SUCRALFATE 1 GM (CARAFATE) TAB PO SCH ×4 (06:31→20:39)
[2021-12-17 07:32] VITALS: BP 182/81
--- NOTE | 2021-12-17 08:23 | Occupational Ther Daily Note ---
OT Current Status-Daily Note Subjective Pt reports having an "awful night" due to being confused at where she was at. Appearance Pt returned to sitting in recliner, all needs within reach at OT departure, chair alarm set. Mental Status/Objective Patient Orientation: Person, Confused Attachments: IV ADL-Treatment Therapy Code Descriptions/Definitions Functional [place] Measure: 0=Not Assessed/NA 4=Minimal Assistance 1=Total Assistance 5=Supervision or Setup 2=Maximal Assistance 6=Modified [place] 3=Moderate Assistance 7=Complete IndependenceSCALE: Activities may be completed with or without assistive devices. 3-Cxrflndzfo-xqzrnep completes the activity by him/herself with no assistance from a helper. 5-Set-up or Clean-up Assistance-helper sets up or cleans up; patient completes activity. [place] assists only prior to or following the activity. 4-Supervision or Touching Assistance-helper provides verbal cues and/or touching/steadying and/or contact guard assistance as patient completes activity. Assistance may be provided throughout the activity or intermittently. 3-Partial/Moderate Assistance-helper does LESS THAN HALF the effort. [place] lifts, holds or supports trunk or limbs, but provides less than half the effort. 2-Substantial/Maximal Assistance-helper does MORE THAN HALF the effort. [place] lifts or holds trunk or limbs and provides more than half the effort. 4-Easjkuvlm-nheuat does ALL the effort. Patient does none of the effort to complete the activity. Or, the assistance of 2 or more helpers is required for the patient to complete the activity. If activity was not attempted, code reason: 7-Patient Refused. 9-Not Applicable-not attempted and the patient did not perform the activity before the current illness, exacerbation or injury. 10-Not Attempted due to Environmental Limitations-(lack of equipment, weather restraints, etc.). 88-Not Attempted due to Medical Conditions or Safety Concerns. Oral Hygiene (QC): 4 (in sitting) Upper Body Dressing (QC): 3 Lower Body Dressing (QC): 3 On/Off Footwear: 2 Toileting Hygiene (QC): 4 Toilet Transfer (QC): 3 Increased confusion noted this session. Simplification required. Poor recall of techniques learned in past sessions, requires re-education. Clothing donned seated in recliner. Re-instructed on compensatory method for donning bra overhead like a t-shirt. Pt able to fasten, thread UE's through straps and bring overhead with step by step verbal cues. Min a to pull down around torso. Set up assist when donning t-shirt. Pt continues to be hesitant to use consulting sme when donning LB clothing. She is able to thread feet into shorts without consulting sme but requires use when threading feet into brief. Mod-max verbal cues and min a needed when donning brief. Steadying assist required as she stood to manage clothing up to waist. Dependent to don Abdi hose. Min a to for positioning of LHSH when sliding heel into shoe. Assist to tie. While ambulating within room, pt with increased unsteadiness this date. Flexed knees while ambulating, requiring cues for correction. Min a needed for steadying throughout standing. Education OT Patient Education: Correct positioning, Modified ADL techniques, Progress toward Goal/Update tx plan, Purpose of tx/functional activities, Reviewed precautions, Rehab process, Safety issues, Transfer techniques, Use of adapted equipment Teaching Recipient: Patient Teaching Methods: Demonstration, Discussion Response to Teaching: Verbalize Understanding, Reinforcement Needed OT Short Term Goals Short Term Goals Time Frame: Dec 19, 2021 Eatin Oral hygiene: 5 Toileting hygiene: 4 Shower/bathe self: 4 Upper body dressin Lower body dressin Putting on/taking off footwear: 2 OT Detention Goals Director Network Development Goals Time Frame: Dec 25, 2021 Eating (QC): 5 Oral Hygiene (QC): 6 Toileting Hygiene (QC): 6 Shower/Bathe Self (QC): 4 Upper Body Dressing (QC): 5 (set up for shirts, Min a for bra) Lower Body Dressing (QC): 3 On/Off Footwear (QC): 2 (with AE) Additional Goals: 1-Demonstrate ADL Tasks, 2-Verbalize Understanding, 3- ImproveStrength/Pat 1=Demonstrate adherence to instructed precautions during ADL tasks. 2=Patient will verbalize/demonstrate understanding of assistive devices/modifications for ADL. 3=Patient will improve strength/tolerance for activity to enable patient to perform ADL's. OT Education/Plan Problem List/Assessment Assessment: Decreased Activ Tolerance, Decreased Safety Aware, Decreased UE Strength, Edema, Impaired Cognition, Impaired Funct Balance, Impaired Self-Care Skills Discharge Recommendations Plan/Recommendations: Continue POC Therapy Discharge Recommendati: Post Acute OT Treatment Plan/Plan of Care Treatment,Training & Education: Yes Patient would benefit from OT for education, treatment and training to promote independence in ADL's, mobility, safety and/or upper extremity function for ADL's. Plan of Care: ADL Retraining, Caregiver Training, Cognitive Retraining, Functional Mobility, Group Exercise/Act as Ind, UE Funct Exercise/Act Treatment Duration: Dec 25, 2021 Frequency: At least 5 of 7 days/Wk (IRF) Estimated Hrs Per Day: 1.5 hours per day (75-90 min/day ) Agreement: Yes Rehab Potential: Fair Time/GCodes Start Time: 07:30 Stop Time: 08:15 Total Time Billed (hr/min): 45 Billed Treatment Time 1 visit ADL x3 Dayna Crandall OT Dec 17, 2021 08:23
[2021-12-17] MEDS: SENNOSIDES 8.6 MG (SENOKOT) TAB PO SCH ×2 (08:28→20:39)
[2021-12-17] MEDS: amLODIPine 5 MG (NORVASC) TAB PO SCH (08:28)
[2021-12-17] MEDS: DOCUSATE SODIUM 100 MG (COLACE) CAP PO SCH ×2 (08:28→20:39)
[2021-12-17] MEDS: polyethylene glycoL POWDER 17 GM (MIRALAX) PACK PO SCH ×2 (08:28→20:39)
[2021-12-17] MEDS: GLIMEPIRIDE 1 MG (AMARYL) TAB PO SCH ×2 (08:28→17:41)
[2021-12-17] MEDS: PANTOPRAZOLE 40 MG (PROTONIX) TAB PO SCH (08:28)
[2021-12-17] MEDS: MEMANTINE 10 MG (NAMENDA) TABLET PO SCH ×2 (08:28→20:39)
[2021-12-17] MEDS: lisINopril 20 MG (PRINIVIL) TABLET PO SCH (08:28)
--- NOTE | 2021-12-17 11:03 | Physical Therapy Daily Note ---
PT Daily Note-Current Subjective Pt sitting in recliner upon arrival. Pt agrees to PT. Pain Location: No Pain Reported Mental Status Patient Orientation: Person, Confused, Place Transfers SCALE: Activities may be completed with or without assistive devices. 6-Dpfoqbxylg-mcgmuvz completes the activity by him/herself with no assistance from a helper. 5-Set-up or Clean-up Assistance-helper sets up or cleans up; patient completes activity. [place] assists only prior to or following the activity. 4-Supervision or Touching Assistance-helper provides verbal cues and/or touching/steadying and/or contact guard assistance as patient completes activity. Assistance may be provided throughout the activity or intermittently. 3-Partial/Moderate Assistance-helper does LESS THAN HALF the effort. [place] lifts, holds or supports trunk or limbs, but provides less than half the effort. 2-Substantial/Maximal Assistance-helper does MORE THAN HALF the effort. [place] lifts or holds trunk or limbs and provides more than half the effort. 6-Fkuykgqes-tmbvnz does ALL the effort. Patient does none of the effort to complete the activity. Or, the assistance of 2 or more helpers is required for the patient to complete the activity. If activity was not attempted, code reason: 7-Patient Refused. 9-Not Applicable-not attempted and the patient did not perform the activity before the current illness, exacerbation or injury. 10-Not Attempted due to Environmental Limitations-(lack of equipment, weather restraints, etc.). 88-Not Attempted due to Medical Conditions or Safety Concerns. Sit to Stand (QC): 4 Toilet Transfer (QC): 4 Weight Bearing Right Lower Extremity: Right Full Weight Bearing Left Lower Extremity: Left Full Weight Bearing Gait Training Does the Patient Walk?: Yes Distance: 50' X2, 75' X2, 30' X2 Walk 10 feet (QC): 4 Walk 50 ft with 2 Turns(QC): 4 Walk 150 ft (QC): 4 Gait Persons Needed: 1 Gait Assistive Device: FWW Exercises Seated Therapy Exercises: Ankle pumps, Long arc quads, Hip flexion, Hip abd/add, Glut set Seated Reps: 15 Treatments TF to standing and amb. to BR. Pt amb. in hallway, taking RB as needed. Pt completes Seated EX before amb. in hallway and returning to room. Pt resting in recliner with all needs met, call light in hand. Assessment Current Status: Fair Progress Pt still remains confused at times and needs VC for sequencing and safety. PT Director Work Goals Senior Living Goals PT Senior Living Goals Time Frame: Jan 04, 2022 Roll Left & Right (QC): 6 Sit to Lying (QC): 6 Lying-Sitting on Side/Bed(QC): 6 Sit to Stand (QC): 6 Chair/Fmj-dd-Ohkqt Xfer(QC): 6 Toilet Transfer (QC): 6 Car Transfer (QC): 6 Does the Patient Walk: Yes Walk 10 feet (QC): 6 Walk 50ft with 2 Turns (QC): 6 Walk 150 ft (QC): 6 Walking 10ft on Uneven Surface: 6 1 Step (curb) (QC): 6 4 Steps (QC): 6 12 Steps (QC): 4 Picking up an Object (QC): 6 Does the Pt use WC or Scooter?: No Wheel 50 feet with 2 turns (QC: 9 Wheel 150 feet: 9 PT Plan Problem List Problem List: Activity Tolerance, Functional Strength, Safety Treatment/Plan Treatment Plan: Continue Plan of Care Treatment Plan: Bed Mobility, Education, Functional Activity Pat, Functional Strength, Group Therapy, Gait, Safety, Therapeutic Exercise, Transfers Treatment Duration: Jan 24, 2022 Frequency: At least 5 of 7 days/Wk (IRF) Estimated Hrs Per Day: 1.5 hours per day Patient and/or Family Agrees t: Yes Safety Risks/Education Patient Education: Transfer Techniques, Correct Positioning, Safety Issues Teaching Recipient: Patient Teaching Methods: Discussion Response to Teaching: Verbalize Understanding Time/GCodes Time In: 1000 Time Out: 1100 Total Billed Treatment Time: 60 Total Billed Treatment 1, GT x2 (30m), FA (15m) & EX (15m) OFELIA ALEXANDER TRAY DELIVERY AIDE Dec 17, 2021 11:03
--- NOTE | 2021-12-17 12:40 | ST Cognitive Linguistic Eval ---
Speech Evaluation-General Medical Diagnosis GI Bleed/Weakness Onset Date: Dec 12, 2021 Therapy Diagnosis Therapy Diagnosis: Neurocognitive Impairment Precautions Precautions: Fall, Pressure Ulcer Precautions/Isolations: Fall Prevention, Standard Precautions, Pressure Ulcer Referral Referring Physician: Dr. Acosta Reason for Referral: Evaluation/Treatment Medical History Pertinent Medical History: DM, Dementia, HTN, Thrombosis Current History The patient is a 81 year old female with a past medical history of dementia, high cholesterol, HTN, and diabetes, who was admitted on 12/10/21 for hematemesis and bloody stools. The patient was found to have a gastroesphageal ulcer, ascending colon polyps, hepatic flexure polyp, a transverse colon mass, and a rectosigmoid colon mass. Reviewed History: Yes Social History Current Living Status: Spouse Speech PLF-Current Status Prior Level of Function The patient denied confusion to this clinician and reports baseline cognitive function. The patient has a known diagnosis of dementia. Subjective The patient was seated upright in her recliner, awake and alert upon entrance to her room by the clinician. The patient greeted the clinician appropriately and was agreeable to participation in the cognitive linguistic assessment. The patient was previously evaluated by speech language pathology, displaying baseline cognitive status (declined with known diagnosis of dementia). Throughout the patient's therapy, the patient has displayed increasing confusion, therefore, speech pathology will re-assess the patient's cognitive status. Per patient, "I just keep getting this confusion. It is usually after I have been asleep or when I need to use the pot." Language Eval: Auditory Comprehends Simple Yes/No Ques: Functional Indent/Objects Multiple Young: Functional Ident/Pics in Multiple Young: Functional Follows 1-Step Commands: Functional Follows General Conversations: Moderate Language Eval: Verbal Language Completes Spontaneous Greeting: Functional Produces Auto, Serial Info: Functional Imitates Simple Words/Phrases: Functional Word Finding: Functional Requests Basic Needs: Functional States Basic Personal Info: Functional Expresses Complex Ideas: Moderate Cognitive Patient Orientation The patient was independently oriented to month and day of week. The patient was unable to state the year or date. Objective Cognitive Domain Attention: Mild Memory: Moderate Problem Solving: Moderate Objective Oral Motor/Speech Production The patient does not display dysarthria or apraxia of speech at this time. The patient is 100% intelligible in known and unknown contexts. Impression The patient continues to display fluctuating cognitive skills (mild to moderate at baseline). The patient's confusion tends to worsen throughout the night which can be associated with her diagnosis of dementia. Due to fluctuating confusion which is resulting in a barrier against therapy progression, speech pathology will provide skilled speech pathology therapy to monitor daily confusion and orientation while attempting progression towards cognitive (memory) goals. If progression throughout skilled speech pathology is not obtained, the patient will be discharged. Per patient's , the patient "seems about the same." Speech Patient Assess Expression of Ideas/Wants: Exhibits (3) Understanding Verbal Content: Usually Understands (3) Brief Interview-Mental Status: Yes Repetition of Three Words: Three (3) Temporal Orientation: Year: Missed by more than 5 yrs (0) Temporal Orientation: Month: Accurate within 5 days(2) Temporal Orientation: Day: Correct (1) Recall : Wear to say "Sock": Yes, no cue required (2) Recall : Color: Yes, no cue required (2) Recall : Bed: Yes,after cueing (1) Memory/Recall Ability: Current season, That he or she is in a hsp/hsp unit Speech Short Term Goals Short Term Goals Short Term Goals 1. The patient will display recall of external memory strategies with 90% accuracy. Time Frame-STG: One Week. Speech Bleach Boiler Puller Goals Snf Goals 1. The patient will demonstrate improve cognitive linguistic skills for safe discharge to the least restrictive environment. Time Frame: 10 days. Speech-Plan Treatment Plan Speech Therapy Treatment Plan: Continue Plan of Care Treatment Duration: Dec 25, 2021 Frequency: Modified Program (IRF) (Four to five times per week.) Estimated Hrs Per Day: .5 hour per day Rehab Potential: Fair Pt/Family Agrees to Plan: Yes Safety Risks/Education Teaching Recipient: Patient, Significant Other Teaching Methods: Demonstration Response to Teaching: Verbalize Understanding, Reinforcement Needed Education Topics Provided: Results, Recommendations, Plan of Care, Goals of Therapy Time Speech Therapy Time In: 11:15 Speech Therapy Time Out: 11:45 Total Billed Time: 30 Billed Treatment Time 1, NANCY GOODEN [facility] Dec 17, 2021 12:40
--- NOTE | 2021-12-17 14:45 | Therapy Group Daily Note ---
Therapy Daily Group Note Patient Education Topic Energy Cons Exercises LE Seated Exercise, UE Exercise Session Ratio (pt:therapist): 3:1 Goal of Session: Energy Conservation Tech. Goal Met for this Session: Yes Pt Benefit of Group: Contributions to Others, F/U Use of Strategies @Home, Increased Functional Safety, Increased Functional Strength, Improved Cognition, Recognition of Peers, Socialization Pt ambulated to and from [facility] with FWW and SBA. OT/PT group consisted of introductions (name, place living, favorite restaurant), socialization, B UE/LE seated exercises and educational topics of energy conservation/community access. Pt actively listened to peers and appropriately introduced self. Pt was able to complete B UE/LE seated exercises correctly with skilled instruction. Pt was able to demonstrate understanding of educational topics by giving own personal strategies and routines. After therapy, pt lying in bed with call light/phone in reach. All needs met in room. Start Time: 13:00 Stop Time: 14:00 Total Billed Treatment Time: 60 Total Billed Treatment Group-1 MAUREEN DÍAZ PT Dec 17, 2021 14:45
--- NOTE | 2021-12-17 15:42 | Progress Note - Surgery ---
JOSELEDADAVID Champion 12/17/21 1542: Subjective Date Seen by a Provider: Dec 17, 2021 Time Seen by a Provider: 15:37 Subjective/Events-last exam Pt is resting comfortably in chair. Family is at bedside. Discussed treatment options with patient and patient understands. Pt has no complaints at this time. Pt states that she has been having bowel movements and voiding. Pt states that she is still tolerating diet. Pt denies n/v, and is not having any significant pain at this time. Review of Systems General: No Chills, No Night Sweats HEENT: No Head Aches, No Visual Changes Pulmonary: No Dyspnea, No Cough Cardiovascular: No: Chest Pain, Palpitations Gastrointestinal: No: Nausea, Vomiting Genitourinary: No Dysuria, No Frequency Musculoskeletal: No: neck pain, shoulder pain Neurological: No: Weakness, Numbness Objective Exam Vital Signs Date Time Temp Pulse Resp B/P (MAP) Pulse Ox O2 Delivery O2 Flow Rate FiO2 12/17/21 09:26 97 Room Air 12/17/21 07:32 36.4 90 18 182/81 (114) 97 Room Air 12/16/21 21:00 98 Room Air 12/16/21 19:14 36.4 91 16 131/76 (94) 98 Room Air Capillary Refill : General Appearance: No Apparent Distress, WD/WN, Chronically ill, Obese HEENT: PERRL/EOMI, Normal ENT Inspection, Pharynx Normal Neck: Normal Inspection, Non Tender, Supple, Carotid Bruit Respiratory: No Accessory Muscle Use, No Respiratory Distress Cardiovascular: No Edema, No JVD Gastrointestinal: non tender, soft Extremity: Normal Inspection, Normal Range of Motion Neurologic/Psychiatric: Alert, Normal Mood/Affect Skin: Normal Color, Warm/Dry Lymphatic: No Adenopathy Results Lab Laboratory Tests 12/16/21 20:11: Glucometer 241H 12/17/21 05:34: Glucometer 235H 12/17/21 10:54: Glucometer 226H 12/17/21 15:32: Glucometer 217H Assessment/Plan Assessment/Plan Assessment/Plan Colonic masses- rectosigmoid and transverse colon Discussed pathology of rectosigmoid mass 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 Pt needs colon resection for further management. Pt understands and would like to proceed. Clinical Quality Measures DVT/VTE Risk/Contraindication: Contraindications-Pharm: Other *list below* Other: KEERTHI MEYERS DO 12/17/212043: Subjective Subjective/Events-last exam Patient sitting in chair, with at bedside. She is doing well. No complaints. States doing well with rehab. No abdominal pain. Tolerating diet. Denies blood in stool. Denies n/v fever sweats chills shortness of breath or chest pain at this time. 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 Pt needs colon resection for further management. I also discussed by phone with her daughter and son-in-law about needing colon resection. We would like her to be opitimized physically and will then plan on doing lapraroscopic hand assisted partial colon resection all other indicated procedures. WIll coordinate with rehab and scheduling for procedure depending on timing of discharge from rehab. Supervisory-Addendum Brief Verification & Attestation Participated in pt care: history, MDM, physical Personally performed: exam, history, MDM, supervision of care Care discussed with: Medical Student Procedures: n/a Results interpretation: Verified all documentation Verification and Attestation of Medical Student E/M Service A medical student performed and documented this service in my presence. I reviewed and verified all information documented by the medical student and made modifications to such information, when appropriate. I personally performed the physical exam and medical decision making. Keerthi Espinoza, Dec 17, 2021,20:45 DAVID DAVIS Dec 17, 2021 15:42 KEERTHI ESPIONZA DO Dec 17, 2021 20:44
[2021-12-17 20:00] VITALS: BP 166/70
[2021-12-17] MEDS: OLANZapine 2.5 MG (ZyPREXA) TAB PO SCH (20:39)
--- NOTE | 2021-12-18 06:13 | PM&R Progress Note ---
Subjective HPI/CC On Admission Date Seen by Provider: Dec 18, 2021 Time Seen by Provider: 08:30 Subjective/Events-last exam 12/18/2021: Pt is doing a lot better Confused at times which is baseline Loose stools so held laxatives Surgery for Thursday12/17/2021: Pt is doing well Confusion is definitely noted and today she is clear Surgery consult by Dr. Parks and oncology 12/16/2021: Pt is doing pretty well Bowels moved in the shower Will discontinue Urecholine, minimizing urinary breaks at night 12/15/2021: Doing better at bedside No pain reported Eating well Glucose noted 12/14/2021: Slept all night long last night Feels really good Zyprexa taking care of the delirium No other concerns No falls 12/13/2021: Patient seems to be doing better No pain reported Less confusion Zyprexa given last night and it appears to have helped sleep Checked meds and labs Review of Systems General: Fatigue, Malaise Neurological: Confusion Objective Exam Vital Signs Vital Signs Date Time Temp Pulse Resp B/P (MAP) Pulse Ox O2 Delivery O2 Flow Rate FiO2 12/18/21 19:52 36.3 88 16 144/81 (102) 99 Room Air Capillary Refill : General Appearance: No Apparent Distress, Chronically ill, Obese HEENT: PERRL/EOMI, Normal ENT Inspection Neck: Normal Inspection, Non Tender Respiratory: Chest Non Tender, No Accessory Muscle Use, No Respiratory Distress Cardiovascular: Regular Rate, Rhythm, No JVD Gastrointestinal: Normal Bowel Sounds, No Organomegaly, No Pulsatile Mass, Non Tender, Soft Back: Normal Inspection, No CVA Tenderness, No Vertebral Tenderness Extremity: Normal Inspection, Normal Range of Motion Neurologic/Psychiatric: Alert, Normal Mood/Affect Skin: Normal Color, Warm/Dry Lymphatic: No Adenopathy Results/Procedures Lab Patient resulted labs reviewed. FIM Transfers Therapy Code Descriptions/Definitions Functional [place] Measure: 0=Not Assessed/NA 4=Minimal Assistance 1=Total Assistance 5=Supervision or Setup 2=Maximal Assistance 6=Modified [place] 3=Moderate Assistance 7=Complete IndependenceSCALE: Activities may be completed with or without assistive devices. 8-Wzremzeoyl-wsivcjf completes the activity by him/herself with no assistance from a helper. 5-Set-up or Clean-up Assistance-helper sets up or cleans up; patient completes activity. [place] assists only prior to or following the activity. 4-Supervision or Touching Assistance-helper provides verbal cues and/or touching/steadying and/or contact guard assistance as patient completes activity. Assistance may be provided throughout the activity or intermittently. 3-Partial/Moderate Assistance-helper does LESS THAN HALF the effort. [place] lifts, holds or supports trunk or limbs, but provides less than half the effort. 2-Substantial/Maximal Assistance-helper does MORE THAN HALF the effort. [place] lifts or holds trunk or limbs and provides more than half the effort. 4-Hfozyltzd-zexacn does ALL the effort. Patient does none of the effort to complete the activity. Or, the assistance of 2 or more helpers is required for the patient to complete the activity. If activity was not attempted, code reason: 7-Patient Refused. 9-Not Applicable-not attempted and the patient did not perform the activity before the current illness, exacerbation or injury. 10-Not Attempted due to Environmental Limitations-(lack of equipment, weather restraints, etc.). 88-Not Attempted due to Medical Conditions or Safety Concerns. Roll Left to Right (QC): 4 Sit to Lying (QC): 4 Sit to Stand (QC): 4 Chair/Whs-gw-Ivquq Xfer(QC): 4 Car Transfer (QC): 4 Gait Training Does the Patient Walk?: Yes Distance: 50' X2, 75' X2, 30' X2 Walk 10 feet (QC): 4 Walk 50 ft with 2 Turns(QC): 4 Walk 150 ft (QC): 4 Walking 10ft/uneven surface-QC: 4 Gait Persons Needed: 1 Gait Assistive Device: FWW Wheelchair Training Does the Pt Use a Wheelchair?: No Wheel 50 ft with 2 turns (QC): 9 Wheel 150 ft (QC): 9 Stair Training #of Steps: 4 1 Step (curb) (QC): 3 4 Steps (QC): 3 12 Steps (QC): 88 Balance Picking up an Object (QC): 4 ADL-Treatment Eating (QC): 5 Oral Hygiene (QC): 4 (in sitting) Shower/Bathe Self (QC): 4 Upper Body Dressing (QC): 3 Lower Body Dressing (QC): 3 On/Off Footwear (QC): 2 Toileting Hygiene (QC): 4 Toilet Transfer (QC): 3 Assessment/Plan Assessment and Plan Assess & Plan/Chief Complaint Assessment: Debility Colon masses pathology pending Hematemesis UTI completed treatment since no growth to date on urine culture Delirium improved with Zyprexa Acute urinary retention resolved Hypertension Hyperlipidemia Dementia 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
[2021-12-18] MEDS: inSUlin ASPART (NovoLOG) 1 UNIT/0.01 ML (CHARGE PER UNIT) SC SCH ×4 (06:18→20:56)
[2021-12-18] MEDS: SUCRALFATE 1 GM (CARAFATE) TAB PO SCH ×3 (06:18→20:55)
[2021-12-18 07:53] VITALS: BP 136/71
[2021-12-18] MEDS: amLODIPine 5 MG (NORVASC) TAB PO SCH (08:28)
[2021-12-18] MEDS: PANTOPRAZOLE 40 MG (PROTONIX) TAB PO SCH (08:28)
[2021-12-18] MEDS: GLIMEPIRIDE 1 MG (AMARYL) TAB PO SCH ×2 (08:28→17:48)
[2021-12-18] MEDS: MEMANTINE 10 MG (NAMENDA) TABLET PO SCH ×2 (08:28→20:55)
[2021-12-18] MEDS: lisINopril 20 MG (PRINIVIL) TABLET PO SCH (08:29)
[2021-12-18] MEDS: DOCUSATE SODIUM 100 MG (COLACE) CAP PO SCH ×2 (08:48→20:56)
[2021-12-18] MEDS: SENNOSIDES 8.6 MG (SENOKOT) TAB PO SCH ×2 (08:48→21:01)
[2021-12-18] MEDS: polyethylene glycoL POWDER 17 GM (MIRALAX) PACK PO SCH ×2 (08:48→20:56)
--- NOTE | 2021-12-18 10:05 | Progress Note - Surgery ---
JOSE MORA 12/18/21 1005: Subjective Date Seen by a Provider: Dec 18, 2021 Time Seen by a Provider: 10:03 Subjective/Events-last exam Patient was up and walking around today. Informed patient that she will be seen in my office next week to discuss surgery. Denies any chest pain, shortness of breath, fever, chills, or any other complaints at this time. Objective Exam Vital Signs Date Time Temp Pulse Resp B/P (MAP) Pulse Ox O2 Delivery O2 Flow Rate FiO2 12/18/21 07:53 36.0 88 16 136/71 (92) 97 Room Air 12/17/21 20:00 Room Air 12/17/21 20:00 36.4 88 20 166/70 (102) 97 Room Air Capillary Refill : General Appearance: No Apparent Distress, Chronically ill, Obese HEENT: PERRL/EOMI, Normal ENT Inspection Neck: Normal Inspection, Non Tender Respiratory: Chest Non Tender, No Accessory Muscle Use, No Respiratory Distress Cardiovascular: Regular Rate, Rhythm, No JVD Gastrointestinal: non tender, soft Extremity: Normal Inspection, Normal Range of Motion Neurologic/Psychiatric: Alert, Normal Mood/Affect Skin: Normal Color, Warm/Dry Lymphatic: No Adenopathy Results Lab Laboratory Tests 12/17/21 10:54: Glucometer 226H 12/17/21 15:32: Glucometer 217H 12/17/21 20:30: Glucometer 268H 12/18/21 05:31: Glucometer 221H Assessment/Plan Assessment/Plan Assessment/Plan GE ULCER Discussed pathology of 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 Pt needs colon resection for further management. I also discussed by phone with her daughter and son-in-law about needing colon resection. We would like her to be opitimized physically and will then plan on doing laparoscopic hand assisted partial colon resection all other indicated procedures. Will coordinate with rehab and scheduling for procedure depending on timing of discharge from rehab. Clinical Quality Measures DVT/VTE Risk/Contraindication: Contraindications-Pharm: Other *list below* Other: KEERTHI MEYERS DO 12/18/212110: Subjective Subjective/Events-last exam Patient getting stronger. No new complaints. Denies n/v fever sweats chills shortness of breath or chest pain. Objective Exam General Appearance: No Apparent Distress, Chronically ill, Obese HEENT: PERRL/EOMI, Normal ENT Inspection Neck: Normal Inspection, Non Tender Respiratory: Chest Non Tender, No Accessory Muscle Use, No Respiratory Distress Cardiovascular: Regular Rate, Rhythm, No JVD Gastrointestinal: non tender, soft Extremity: Normal Inspection, Normal Range of Motion Neurologic/Psychiatric: Alert, Normal Mood/Affect Skin: Normal Color, Warm/Dry Lymphatic: No Adenopathy Assessment/Plan Assessment/Plan Assessment/Plan GE ulcer adenocarcinoma of colon Continue protonix Discharge planned for likely this week. Will have follow up Thursday with me to make final details/arrangements of surgery and instructions. Will sign off, call if needed. Supervisory-Addendum Brief Verification & Attestation Participated in pt care: history, MDM, physical Personally performed: exam, history, MDM, supervision of care Care discussed with: Medical Student Procedures: n/a Results interpretation: Verified all documentation Verification and Attestation of Medical Student E/M Service A medical student performed and documented this service in my presence. I reviewed and verified all information documented by the medical student and made modifications to such information, when appropriate. I personally performed the physical exam and medical decision making. Keerthi Parks, Dec 18, 2021,21:15 JOSE MORA Dec 18, 2021 10:05 KEERTHI PARKS DO Dec 18, 2021 21:11
--- NOTE | 2021-12-18 10:45 | Speech Therapy Daily Note ---
Speech Daily Progress Note Subjective Date Seen by Provider: Dec 18, 2021 Time Seen by Provider: 10:30 The patient was ambulating to the restroom upon entrance into the patient's room by this clinician. The patient was aided by the PCT and required consistent verbal cueing for sequencing and safety. The patient greeted the clinician appropriately and was agreeable to participation in the cognitive linguistic treatment session. Objective The patient stated leaving the bathroom light on and the door cracked aided in sleep and reducing confusion throughout the evening. A sign was placed on the patient's door and the RN placed a note in the patient's chart to continue this practice. Functional Recall: The patient was able to recall her visit with Dr. Parks, the diagnosis provided, and the recommended treatment (surgery), independently. Orientation: The patient independently located orientation information on the in-room white board, providing accurate information to the clinician. Assessment Assessment Current Status: Fair Progress Treatment Plan Continue Plan of Care Speech Short Term Goals Short Term Goals Short Term Goals 1. The patient will display recall of external memory strategies with 90% ac curacy. Time Frame-STG: One Week. Speech Wall Taper Goals Wall Taper Goals 1. The patient will demonstrate improve cognitive linguistic skills for safe discharge to the least restrictive environment. Time Frame: 10 days. Speech-Plan Treatment Plan Speech Therapy Treatment Plan: Continue Plan of Care Treatment Duration: Dec 25, 2021 Frequency: Modified Program (IRF) (Four to five times per week.) Estimated Hrs Per Day: .5 hour per day Rehab Potential: Fair Safety Risks/Education Teaching Recipient: Patient Teaching Methods: Discussion Response to Teaching: Reinforcement Needed Education Topics Provided: Orientation Strategies Time Speech Therapy Time In: 10:30 Speech Therapy Time Out: 11:00 Total Billed Time: 30 Billed Treatment Time 1, RHIANNA BEEBE Dec 18, 2021 10:45
--- NOTE | 2021-12-18 12:07 | Physical Therapy Daily Note ---
PT Daily Note-Current Subjective Pt sitting in chair with alarm on upon arrival. Pt agrees to PT and asks to use BR. Pain Location: No Pain Reported Mental Status Patient Orientation: Person, Confused, Place Transfers SCALE: Activities may be completed with or without assistive devices. 9-Eiuzncxmoh-fayblkf completes the activity by him/herself with no assistance from a helper. 5-Set-up or Clean-up Assistance-helper sets up or cleans up; patient completes activity. [place] assists only prior to or following the activity. 4-Supervision or Touching Assistance-helper provides verbal cues and/or touching/steadying and/or contact guard assistance as patient completes activity. Assistance may be provided throughout the activity or intermittently. 3-Partial/Moderate Assistance-helper does LESS THAN HALF the effort. [place] lifts, holds or supports trunk or limbs, but provides less than half the effort. 2-Substantial/Maximal Assistance-helper does MORE THAN HALF the effort. [place] lifts or holds trunk or limbs and provides more than half the effort. 7-Itqoswuth-kqosle does ALL the effort. Patient does none of the effort to complete the activity. Or, the assistance of 2 or more helpers is required for the patient to complete the activity. If activity was not attempted, code reason: 7-Patient Refused. 9-Not Applicable-not attempted and the patient did not perform the activity before the current illness, exacerbation or injury. 10-Not Attempted due to Environmental Limitations-(lack of equipment, weather restraints, etc.). 88-Not Attempted due to Medical Conditions or Safety Concerns. Sit to Stand (QC): 5 Toilet Transfer (QC): 5 Weight Bearing Right Lower Extremity: Right Full Weight Bearing Left Lower Extremity: Left Full Weight Bearing Gait Training Does the Patient Walk?: Yes Distance: 125', 75' Walk 10 feet (QC): 5 Walk 50 ft with 2 Turns(QC): 4 Walk 150 ft (QC): 4 Gait Persons Needed: 1 Gait Assistive Device: FWW Exercises Seated Therapy Exercises: Ankle pumps, Long arc quads, Hip flexion, Glut set Seated Reps: 15 Treatments TF to standing and amb. to BR. Pt is able to complete pericare but needs occasional reminders for sequencing, easily distracted. Pt amb. in hallway before RB in Therapy Gym. Pt completes Seated Ex before standing for additional amb. Pt visits with her General Surgeon. Pt returns to chair in Therapy Commons to rest with Sp. All needs met. Assessment Current Status: Good Progress Pt was able to walk farther before needing RB. PT Nursing Home Goals Nursing Home Goals PT [place] Goals Time Frame: Jan 04, 2022 Roll Left & Right (QC): 6 Sit to Lying (QC): 6 Lying-Sitting on Side/Bed(QC): 6 Sit to Stand (QC): 6 Chair/Idp-sv-Vmruu Xfer(QC): 6 Toilet Transfer (QC): 6 Car Transfer (QC): 6 Does the Patient Walk: Yes Walk 10 feet (QC): 6 Walk 50ft with 2 Turns (QC): 6 Walk 150 ft (QC): 6 Walking 10ft on Uneven Surface: 6 1 Step (curb) (QC): 6 4 Steps (QC): 6 12 Steps (QC): 4 Picking up an Object (QC): 6 Does the Pt use WC or Scooter?: No Wheel 50 feet with 2 turns (QC: 9 Wheel 150 feet: 9 PT Plan Problem List Problem List: Activity Tolerance Treatment/Plan Treatment Plan: Continue Plan of Care Treatment Plan: Bed Mobility, Education, Functional Activity Pat, Functional Strength, Group Therapy, Gait, Safety, Therapeutic Exercise, Transfers Treatment Duration: Jan 24, 2022 Frequency: At least 5 of 7 days/Wk (IRF) Estimated Hrs Per Day: 1.5 hours per day Patient and/or Family Agrees t: Yes Time/GCodes Time In: 900 Time Out: 1000 Total Billed Treatment Time: 60 Total Billed Treatment 1, FA x2 (25m), GT (20m) & EX (15m) OFELIA ALEXANDER EMG TECHNICIAN Dec 18, 2021 12:07
--- NOTE | 2021-12-18 12:08 | Occupational Ther Daily Note ---
OT Current Status-Daily Note Subjective Pt tangential. Several cues to redirect back to topic/task. Appearance Pt left sitting in dining area, spouse present, RN notified. Mental Status/Objective Patient Orientation: Person ADL-Treatment Therapy Code Descriptions/Definitions Functional [place] Measure: 0=Not Assessed/NA 4=Minimal Assistance 1=Total Assistance 5=Supervision or Setup 2=Maximal Assistance 6=Modified [place] 3=Moderate Assistance 7=Complete IndependenceSCALE: Activities may be completed with or without assistive devices. 4-Wvirhczesj-tsvgfsi completes the activity by him/herself with no assistance from a helper. 5-Set-up or Clean-up Assistance-helper sets up or cleans up; patient completes activity. [place] assists only prior to or following the activity. 4-Supervision or Touching Assistance-helper provides verbal cues and/or touching/steadying and/or contact guard assistance as patient completes activity. Assistance may be provided throughout the activity or intermittently. 3-Partial/Moderate Assistance-helper does LESS THAN HALF the effort. [place] lifts, holds or supports trunk or limbs, but provides less than half the effort. 2-Substantial/Maximal Assistance-helper does MORE THAN HALF the effort. [place] lifts or holds trunk or limbs and provides more than half the effort. 4-Jgnzkovub-fivhmi does ALL the effort. Patient does none of the effort to complete the activity. Or, the assistance of 2 or more helpers is required for the patient to complete the activity. If activity was not attempted, code reason: 7-Patient Refused. 9-Not Applicable-not attempted and the patient did not perform the activity before the current illness, exacerbation or injury. 10-Not Attempted due to Environmental Limitations-(lack of equipment, weather restraints, etc.). 88-Not Attempted due to Medical Conditions or Safety Concerns. Shower/Bathe Self (QC): 4 Upper Body Dressing (QC): 3 (min a for bra, set up for shirt) Lower Body Dressing (QC): 4 On/Off Footwear: 2 Toileting Hygiene (QC): 4 Toilet Transfer (QC): 4 Shower performed; 100% completed in sitting. Cues needed to initiate washing legs, buttocks, and to rinse water off body. Pt likely does not wash feet at home as she frequently states that she just lets the soapy water run down her legs. Pt unable to recall techniques learned in past sessions. Re-education on placing washcloth on floor and rubbing feet along soapy cloth. Pt washed buttocks with lateral and anterior pelvic leans. Clothing donned seated on shower bench. Again, reminder cues on compensatory method to don bra. Post cues, pt was able to fasten, thread UE's through straps and bring overhead with verbal cues only. Min a to pull down around torso. Set up assist when donning t-shirt. Pt continues to decline use of ncqa specialist when donning LB clothing. With extra time and effort exhibited she was able to thread feet into shorts and brief without ncqa specialist this date. Intermittent CGA for safety as she stood to pull clothing up to waist. One hand alternating on grab bar as other managed clothing. Dependent to don Abdi hose. Pt requested to eat lunch out in dining area with . She ambulated to dining area with walker and CGA/min a. Cues for posture and knee extension as pt had tendency to walk with knees flexed and while sliding feet across floor. Simplification cues needed when going to transfer into chair. Education OT Patient Education: Correct positioning, Modified ADL techniques, Progress toward Goal/Update tx plan, Purpose of tx/functional activities, Rehab process, Safety issues, Transfer techniques Teaching Recipient: Patient Teaching Methods: Discussion Response to Teaching: Verbalize Understanding, Return Demonstration, Reinforcement Needed OT Short Term Goals Short Term Goals Time Frame: Dec 19, 2021 Eatin Oral hygiene: 5 Toileting hygiene: 4 Shower/bathe self: 4 Upper body dressin Lower body dressin Putting on/taking off footwear: 2 OT Child Care Lead Teacher Goals Residential Goals Time Frame: Dec 25, 2021 Eating (QC): 5 Oral Hygiene (QC): 6 Toileting Hygiene (QC): 6 Shower/Bathe Self (QC): 4 Upper Body Dressing (QC): 5 (set up for shirts, Min a for bra) Lower Body Dressing (QC): 3 On/Off Footwear (QC): 2 (with AE) Additional Goals: 1-Demonstrate ADL Tasks, 2-Verbalize Understanding, 3- ImproveStrength/Pat 1=Demonstrate adherence to instructed precautions during ADL tasks. 2=Patient will verbalize/demonstrate understanding of assistive devices/modifications for ADL. 3=Patient will improve strength/tolerance for activity to enable patient to perform ADL's. OT Education/Plan Problem List/Assessment Assessment: Decreased Activ Tolerance, Decreased Safety Aware, Decreased UE Strength, Edema, Impaired Cognition, Impaired Coordination, Impaired Funct Balance, Impaired Self-Care Skills Discharge Recommendations Plan/Recommendations: Continue POC Treatment Plan/Plan of Care Treatment,Training & Education: Yes Patient would benefit from OT for education, treatment and training to promote independence in ADL's, mobility, safety and/or upper extremity function for ADL's. Plan of Care: ADL Retraining, Caregiver Training, Cognitive Retraining, Functional Mobility, Group Exercise/Act as Ind, UE Funct Exercise/Act Treatment Duration: Dec 25, 2021 Frequency: At least 5 of 7 days/Wk (IRF) Estimated Hrs Per Day: 1.5 hours per day (75-90 min/day ) Agreement: Yes Rehab Potential: Fair Time/GCodes Start Time: 11:00 Stop Time: 12:15 Total Time Billed (hr/min): 75 Billed Treatment Time 1 visit ADL x5 Dayna Crandall OT Dec 18, 2021 12:08
--- NOTE | 2021-12-18 15:32 | Physical Therapy Daily Note ---
PT Daily Note-Current Subjective Pt sitting in recliner upon arrival. Chair alarm on and Sp not present. Mental Status Patient Orientation: Person, Confused, Place Transfers SCALE: Activities may be completed with or without assistive devices. 1-Yzjhudvdld-alyedsu completes the activity by him/herself with no assistance from a helper. 5-Set-up or Clean-up Assistance-helper sets up or cleans up; patient completes activity. [place] assists only prior to or following the activity. 4-Supervision or Touching Assistance-helper provides verbal cues and/or touching/steadying and/or contact guard assistance as patient completes activity. Assistance may be provided throughout the activity or intermittently. 3-Partial/Moderate Assistance-helper does LESS THAN HALF the effort. [place] lifts, holds or supports trunk or limbs, but provides less than half the effort. 2-Substantial/Maximal Assistance-helper does MORE THAN HALF the effort. [place] lifts or holds trunk or limbs and provides more than half the effort. 5-Xpioafvjj-fanebm does ALL the effort. Patient does none of the effort to complete the activity. Or, the assistance of 2 or more helpers is required for the patient to complete the activity. If activity was not attempted, code reason: 7-Patient Refused. 9-Not Applicable-not attempted and the patient did not perform the activity before the current illness, exacerbation or injury. 10-Not Attempted due to Environmental Limitations-(lack of equipment, weather restraints, etc.). 88-Not Attempted due to Medical Conditions or Safety Concerns. Sit to Stand (QC): 5 Toilet Transfer (QC): 5 Weight Bearing Right Lower Extremity: Right Full Weight Bearing Left Lower Extremity: Left Full Weight Bearing Gait Training Does the Patient Walk?: Yes Distance: 125' x2 Walk 10 feet (QC): 4 Walk 50 ft with 2 Turns(QC): 4 Gait Persons Needed: 1 Gait Assistive Device: FWW Treatments TF to standing and amb. to BR. Pt is able to complete pericare and wash hands. Pt amb. in hallway before returning to chair in Therapy Commons to rest. All ne eds met. Assessment Current Status: Fair Progress Pt continues to demonstrates moments of confusion but this is baseline. Pt needs VC at times for sequencing and safety although pt can physically complete tasks. PT Mcfp Goals Mcfp Goals PT Retanned Leather Roller Goals Time Frame: Jan 04, 2022 Roll Left & Right (QC): 6 Sit to Lying (QC): 6 Lying-Sitting on Side/Bed(QC): 6 Sit to Stand (QC): 6 Chair/Mvp-vt-Veffm Xfer(QC): 6 Toilet Transfer (QC): 6 Car Transfer (QC): 6 Does the Patient Walk: Yes Walk 10 feet (QC): 6 Walk 50ft with 2 Turns (QC): 6 Walk 150 ft (QC): 6 Walking 10ft on Uneven Surface: 6 1 Step (curb) (QC): 6 4 Steps (QC): 6 12 Steps (QC): 4 Picking up an Object (QC): 6 Does the Pt use WC or Scooter?: No Wheel 50 feet with 2 turns (QC: 9 Wheel 150 feet: 9 PT Plan Problem List Problem List: Activity Tolerance, Safety Treatment/Plan Treatment Plan: Continue Plan of Care Treatment Plan: Bed Mobility, Education, Functional Activity Pat, Functional Strength, Group Therapy, Gait, Safety, Therapeutic Exercise, Transfers Treatment Duration: Jan 24, 2022 Frequency: At least 5 of 7 days/Wk (IRF) Estimated Hrs Per Day: 1.5 hours per day Patient and/or Family Agrees t: Yes Time/GCodes Time In: 1330 Time Out: 1400 Total Billed Treatment Time: 30 Total Billed Treatment 1, FA (15m) & GT (15m) OFELIA ALEXANDER BROILER CHEF OR COOK Dec 18, 2021 15:32
[2021-12-18 19:52] VITALS: BP 144/81
[2021-12-18] MEDS: OLANZapine 2.5 MG (ZyPREXA) TAB PO SCH (20:55)
[2021-12-19 00:55] VITALS: BP 150/75
--- NOTE | 2021-12-19 05:58 | PM&R Progress Note ---
Subjective HPI/CC On Admission Date Seen by Provider: Dec 19, 2021 Time Seen by Provider: 11:00 Subjective/Events-last exam 12/19/2021: Had a noninjury fall last night Discharge plan for Thursday No other major concerns No pain 12/18/2021: Pt is doing a lot better Confused at times which is baseline Loose stools so held laxatives Surgery for Thursday12/17/2021: Pt is doing well Confusion is definitely noted and today she is clear Surgery consult by Dr. Parks and oncology 12/16/2021: Pt is doing pretty well Bowels moved in the shower Will discontinue Urecholine, minimizing urinary breaks at night 12/15/2021: Doing better at bedside No pain reported Eating well Glucose noted 12/14/2021: Slept all night long last night Feels really good Zyprexa taking care of the delirium No other concerns No falls 12/13/2021: Patient seems to be doing better No pain reported Less confusion Zyprexa given last night and it appears to have helped sleep Checked meds and labs Review of Systems General: Fatigue, Malaise Objective Exam Vital Signs Vital Signs Date Time Temp Pulse Resp B/P (MAP) Pulse Ox O2 Delivery O2 Flow Rate FiO2 12/19/21 21:00 Room Air 12/19/21 20:20 36.4 85 16 144/81 (102) 96 Capillary Refill : General Appearance: No Apparent Distress, Chronically ill, Obese HEENT: PERRL/EOMI, Normal ENT Inspection Neck: Normal Inspection, Non Tender Respiratory: Chest Non Tender, No Accessory Muscle Use, No Respiratory Distress Cardiovascular: Regular Rate, Rhythm, No JVD Gastrointestinal: Normal Bowel Sounds, No Organomegaly, No Pulsatile Mass, Non Tender, Soft Back: Normal Inspection, No CVA Tenderness, No Vertebral Tenderness Extremity: Normal Inspection, Normal Range of Motion Neurologic/Psychiatric: Alert, Normal Mood/Affect Skin: Normal Color, Warm/Dry Lymphatic: No Adenopathy Results/Procedures Lab Patient resulted labs reviewed. FIM Transfers Therapy Code Descriptions/Definitions Functional [place] Measure: 0=Not Assessed/NA 4=Minimal Assistance 1=Total Assistance 5=Supervision or Setup 2=Maximal Assistance 6=Modified [place] 3=Moderate Assistance 7=Complete IndependenceSCALE: Activities may be completed with or without assistive devices. 1-Cteizsqmot-nmbyrmf completes the activity by him/herself with no assistance from a helper. 5-Set-up or Clean-up Assistance-helper sets up or cleans up; patient completes activity. [place] assists only prior to or following the activity. 4-Supervision or Touching Assistance-helper provides verbal cues and/or touching/steadying and/or contact guard assistance as patient completes activity. Assistance may be provided throughout the activity or intermittently. 3-Partial/Moderate Assistance-helper does LESS THAN HALF the effort. [place] lifts, holds or supports trunk or limbs, but provides less than half the effort. 2-Substantial/Maximal Assistance-helper does MORE THAN HALF the effort. [place] lifts or holds trunk or limbs and provides more than half the effort. 2-Lzkgqibrj-wdafvy does ALL the effort. Patient does none of the effort to complete the activity. Or, the assistance of 2 or more helpers is required for the patient to complete the activity. If activity was not attempted, code reason: 7-Patient Refused. 9-Not Applicable-not attempted and the patient did not perform the activity before the current illness, exacerbation or injury. 10-Not Attempted due to Environmental Limitations-(lack of equipment, weather restraints, etc.). 88-Not Attempted due to Medical Conditions or Safety Concerns. Roll Left to Right (QC): 4 Sit to Lying (QC): 4 Sit to Stand (QC): 5 Chair/Bph-jt-Ofghv Xfer(QC): 4 Car Transfer (QC): 4 Gait Training Does the Patient Walk?: Yes Distance: 125' x2 Walk 10 feet (QC): 4 Walk 50 ft with 2 Turns(QC): 4 Walk 150 ft (QC): 4 Walking 10ft/uneven surface-QC: 4 Gait Persons Needed: 1 Gait Assistive Device: FWW Wheelchair Training Does the Pt Use a Wheelchair?: No Wheel 50 ft with 2 turns (QC): 9 Wheel 150 ft (QC): 9 Stair Training #of Steps: 4 1 Step (curb) (QC): 3 4 Steps (QC): 3 12 Steps (QC): 88 Balance Picking up an Object (QC): 4 ADL-Treatment Eating (QC): 5 Oral Hygiene (QC): 4 (in sitting) Shower/Bathe Self (QC): 4 Upper Body Dressing (QC): 3 (min a for bra, set up for shirt) Lower Body Dressing (QC): 4 On/Off Footwear (QC): 2 Toileting Hygiene (QC): 4 Toilet Transfer (QC): 4 Assessment/Plan Assessment and Plan Assess & Plan/Chief Complaint Assessment: Debility Colon masses pathology pending Hematemesis UTI completed treatment since no growth to date on urine culture Delirium improved with Zyprexa Acute urinary retention resolved Hypertension Hyperlipidemia Dementia 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 Fall risk Plan: Rocephin PT OT Supportive care Delirium management 12/13/2021: Monitor sugar Fall risk 12/14/2021: DC Rocephin Improved status 12/15/2021: Monitor BP and sugar Monitor closely 12/16/2021: Monitor confusion 12/17/2021: Surgery planned 12/18/2021: Continue current treatment Strengthening prior to Thursday colonic surgery 12/19/2021: Discharge planned for Thursday Surgery on Thursday (1) GI bleed (2) Colonic mass (3) Dementia Status: Acute (4) Generalized weakness Status: Acute (5) Hematemesis Status: Acute (6) Urinary tract infection Status: Acute (7) Weakness (8) Edema (9) Diarrhea (10) Diabetes JAMES BOWDEN DO Dec 19, 2021 05:58
[2021-12-19] MEDS: SUCRALFATE 1 GM (CARAFATE) TAB PO SCH ×4 (06:35→22:47)
[2021-12-19] MEDS: inSUlin ASPART (NovoLOG) 1 UNIT/0.01 ML (CHARGE PER UNIT) SC SCH ×4 (06:36→22:48)
[2021-12-19 07:39] VITALS: BP 149/81
[2021-12-19] MEDS: GLIMEPIRIDE 1 MG (AMARYL) TAB PO SCH ×2 (08:32→17:57)
[2021-12-19] MEDS: DOCUSATE SODIUM 100 MG (COLACE) CAP PO SCH ×2 (08:32→22:48)
[2021-12-19] MEDS: SENNOSIDES 8.6 MG (SENOKOT) TAB PO SCH ×2 (08:33→22:48)
[2021-12-19] MEDS: polyethylene glycoL POWDER 17 GM (MIRALAX) PACK PO SCH ×2 (08:33→22:48)
[2021-12-19] MEDS: lisINopril 20 MG (PRINIVIL) TABLET PO SCH (08:39)
[2021-12-19] MEDS: PANTOPRAZOLE 40 MG (PROTONIX) TAB PO SCH (08:39)
[2021-12-19] MEDS: amLODIPine 5 MG (NORVASC) TAB PO SCH (08:39)
[2021-12-19] MEDS: MEMANTINE 10 MG (NAMENDA) TABLET PO SCH ×2 (08:39→22:47)
--- NOTE | 2021-12-19 10:31 | Speech Therapy Daily Note ---
Speech Daily Progress Note Subjective Date Seen by Provider: Dec 19, 2021 Time Seen by Provider: 10:30 The patient was seated upright in her recliner, awake and alert upon entrance to her room. The patient greeted the clinician appropriately and was agreeable to participation in the cognitive linguistic treatment session. The patient's spouse was present for today's session. Objective - Orientation: The patient independently located orientation information from the in room white board and provided the information accurately to the clinician on this date. Per patient, she experienced a fall on this date. Due to this, the clinician and patient discussed safety precautions for ambulation, specifically using her call light and her walker. The clinician and patient repeated the safety precautions three times each. Furthermore, the patient provided safe use of her walker, including pushing up from her chair and not pulling up from her walker. The patient reported increased confusion on this date stating, "I tried to order my breakfast again before I realized I had already ate breakfast." The clinician will continue to monitor the patient's fluctuating confusion, however, does not feel skilled cognitive therapy will be beneficial for improvement due to instability. Assessment Assessment Current Status: Fair Progress Treatment Plan Continue Plan of Care Speech Short Term Goals Short Term Goals Short Term Goals 1. The patient will display recall of external memory strategies with 90% accuracy. Time Frame-STG: One Week. Speech Watershed Engineer Goals Intermediate Goals 1. The patient will demonstrate improve cognitive linguistic skills for safe discharge to the least restrictive environment. Time Frame: 10 days. Speech-Plan Treatment Plan Speech Therapy Treatment Plan: Continue Plan of Care Treatment Duration: Dec 25, 2021 Frequency: Modified Program (IRF) (Four to five times per week.) Estimated Hrs Per Day: .5 hour per day Rehab Potential: Fair Safety Risks/Education Teaching Recipient: Patient, Significant Other Teaching Methods: Discussion Response to Teaching: Reinforcement Needed Education Topics Provided: Safety Precautions with Ambulation Time Speech Therapy Time In: 10:30 Speech Therapy Time Out: 11:00 Total Billed Time: 30 Billed Treatment Time 1NANCY ELIZABETH ST Dec 19, 2021 10:31
--- NOTE | 2021-12-19 11:54 | Occupational Ther Daily Note ---
OT Current Status-Daily Note Subjective Appears apprehensive with toilet transfer. Pt reports she had a fall last night while getting off toilet. Appearance Pt requested to eat lunch in dining area. Spouse present at table at OT departure. Mental Status/Objective Patient Orientation: Person, Confused, Place ADL-Treatment Therapy Code Descriptions/Definitions Functional [place] Measure: 0=Not Assessed/NA 4=Minimal Assistance 1=Total Assistance 5=Supervision or Setup 2=Maximal Assistance 6=Modified [place] 3=Moderate Assistance 7=Complete IndependenceSCALE: Activities may be completed with or without assistive devices. 3-Lfhpcovprw-tyuewej completes the activity by him/herself with no assistance from a helper. 5-Set-up or Clean-up Assistance-helper sets up or cleans up; patient completes activity. [place] assists only prior to or following the activity. 4-Supervision or Touching Assistance-helper provides verbal cues and/or touching/steadying and/or contact guard assistance as patient completes activity. Assistance may be provided throughout the activity or intermittently. 3-Partial/Moderate Assistance-helper does LESS THAN HALF the effort. [place] lifts, holds or supports trunk or limbs, but provides less than half the effort. 2-Substantial/Maximal Assistance-helper does MORE THAN HALF the effort. [place] lifts or holds trunk or limbs and provides more than half the effort. 7-Bmjwcllej-ugxinl does ALL the effort. Patient does none of the effort to complete the activity. Or, the assistance of 2 or more helpers is required for the patient to complete the activity. If activity was not attempted, code reason: 7-Patient Refused. 9-Not Applicable-not attempted and the patient did not perform the activity before the current illness, exacerbation or injury. 10-Not Attempted due to Environmental Limitations-(lack of equipment, weather restraints, etc.). 88-Not Attempted due to Medical Conditions or Safety Concerns. Eating (QC): 6 Upper Body Dressing (QC): 3 (min a for bra, set up for shirt) Lower Body Dressing (QC): 3 On/Off Footwear: 2 Toileting Hygiene (QC): 3 Toilet Transfer (QC): 4 Dressing tasks performed seated in recliner. Pt unable to recall techniques in past sessions despite repetition each day. Post cues, pt able to fasten, thread UE's through straps and bring bra overhead with verbal cues only. Min a to pull down around torso. Set up assist when donning t-shirt. Pt continues to decline use of gaming cage cashier when donning LB clothing. With extra time and effort exhibited she was able to thread feet into shorts and brief without gaming cage cashier this date. When standing pt immediately removes both hands from walker and loses balance. Min a to remain upright. Reminder to keep one hand on walker as other managed clothing up to waist. Pt verbalizes "yes" but continues to remove both hands. Verbal and tactile cues to replace at least 1UE back on walker. Poor follow through. Same cues/reminders given pre/post toileting. Dependent to don Abdi hose. Other Treatment Pt ambulated to/from therapy gym with min a and use of walker. Poor walker sri eber as she had tendency to push walker too far in front of her. Cues also for knee extension as she ambulated with flexed knees and slid feet across the floor. 2 sitting rest breaks needed prior to reaching destination, ~50 feet. While in gym, pt reports increased fatigue. She sat to complete arm bike, 3 min x2. Mod resistance. Reduced activity tolerance when compared to past sessions. Education OT Patient Education: Correct positioning, Energy conservation, Modified ADL techniques, Progress toward Goal/Update tx plan, Purpose of tx/functional activities, Rehab process, Safety issues, Transfer techniques Teaching Recipient: Patient Teaching Methods: Demonstration, Discussion Response to Teaching: Reinforcement Needed OT Short Term Goals Short Term Goals Time Frame: Dec 19, 2021 Eatin Oral hygiene: 5 Toileting hygiene: 4 Shower/bathe self: 4 Upper body dressin Lower body dressin Putting on/taking off footwear: 2 OT Adoption Social Worker Goals Fdc Goals Time Frame: Dec 25, 2021 Eating (QC): 5 Oral Hygiene (QC): 6 Toileting Hygiene (QC): 6 Shower/Bathe Self (QC): 4 Upper Body Dressing (QC): 5 (set up for shirts, Min a for bra) Lower Body Dressing (QC): 3 On/Off Footwear (QC): 2 (with AE) Additional Goals: 1-Demonstrate ADL Tasks, 2-Verbalize Understanding, 3- ImproveStrength/Pat 1=Demonstrate adherence to instructed precautions during ADL tasks. 2=Patient will verbalize/demonstrate understanding of assistive devices/modifications for ADL. 3=Patient will improve strength/tolerance for activity to enable patient to perform ADL's. OT Education/Plan Problem List/Assessment Assessment: Decreased Activ Tolerance, Decreased Safety Aware, Decreased UE Strength, Edema, Impaired Cognition, Impaired Funct Balance, Impaired I ADL's, Impaired Self-Care Skills Discharge Recommendations Plan/Recommendations: Continue POC Therapy Discharge Recommendati: Post Acute OT Treatment Plan/Plan of Care Treatment,Training & Education: Yes Patient would benefit from OT for education, treatment and training to promote independence in ADL's, mobility, safety and/or upper extremity function for ADL's. Plan of Care: ADL Retraining, Caregiver Training, Cognitive Retraining, Functional Mobility, Group Exercise/Act as Ind, UE Funct Exercise/Act Treatment Duration: Dec 25, 2021 Frequency: At least 5 of 7 days/Wk (IRF) Estimated Hrs Per Day: 1.5 hours per day (75-90 min/day ) Agreement: Yes Rehab Potential: Fair Time/GCodes Start Time: 11:00 Stop Time: 12:15 Total Time Billed (hr/min): 75 Billed Treatment Time 1 visit ADL x3 (50 min) FA x2 (25 min) Dayna Crandall OT Dec 19, 2021 11:54
--- NOTE | 2021-12-19 12:59 | Physical Therapy Daily Note ---
PT Daily Note-Current Subjective Patient sitting in chair upon PT arrival, agreeable to treatment. Patient rates pain at 0/10 currently. Mental Status Patient Orientation: Person Transfers SCALE: Activities may be completed with or without assistive devices. 4-Ztetxelhpm-jzrdnky completes the activity by him/herself with no assistance from a helper. 5-Set-up or Clean-up Assistance-helper sets up or cleans up; patient completes activity. [place] assists only prior to or following the activity. 4-Supervision or Touching Assistance-helper provides verbal cues and/or touching/steadying and/or contact guard assistance as patient completes activity. Assistance may be provided throughout the activity or intermittently. 3-Partial/Moderate Assistance-helper does LESS THAN HALF the effort. [place] lifts, holds or supports trunk or limbs, but provides less than half the effort. 2-Substantial/Maximal Assistance-helper does MORE THAN HALF the effort. [place] lifts or holds trunk or limbs and provides more than half the effort. 7-Vogmqtlzo-pjymgm does ALL the effort. Patient does none of the effort to complete the activity. Or, the assistance of 2 or more helpers is required for the patient to complete the activity. If activity was not attempted, code reason: 7-Patient Refused. 9-Not Applicable-not attempted and the patient did not perform the activity before the current illness, exacerbation or injury. 10-Not Attempted due to Environmental Limitations-(lack of equipment, weather restraints, etc.). 88-Not Attempted due to Medical Conditions or Safety Concerns. Sit to Stand (QC): 4 Chair/Caa-ww-Cuvko Xfer(QC): 4 Toilet Transfer (QC): 4 Weight Bearing Right Lower Extremity: Right Full Weight Bearing Left Lower Extremity: Left Full Weight Bearing Gait Training Does the Patient Walk?: Yes Distance: 50 feet x 4 Walk 10 feet (QC): 4 Walk 50 ft with 2 Turns(QC): 4 Gait Persons Needed: 1 Gait Assistive Device: FWW Exercises Seated Therapy Exercises: Ankle pumps, Long arc quads, Hip flexion, Hamstring Curls, Hip abd/add Seated Reps: 20 NuStep Minutes: 10 NuStep Workload: 4 Assessment Current Status: Fair Progress Patient tolerated treatment fair. Demonstrates CGA for all observed transfers. Patient ambulates 50 feet x 4 with FWW, with CGA and verbal cues for safety, progression, conservation of energy, posture. Patient requires sitting rest break at each 50 foot interval. Patient performs LE therapeutic exercise and Nu Step as listed above. Patient in chair post treatment with all needs met, nursing notified, call light in hand, in the room. PT Lease Administrator Goals Lease Administrator Goals PT Assisted Goals Time Frame: Jan 04, 2022 Roll Left & Right (QC): 6 Sit to Lying (QC): 6 Lying-Sitting on Side/Bed(QC): 6 Sit to Stand (QC): 6 Chair/Ugo-wi-Lpodf Xfer(QC): 6 Toilet Transfer (QC): 6 Car Transfer (QC): 6 Does the Patient Walk: Yes Walk 10 feet (QC): 6 Walk 50ft with 2 Turns (QC): 6 Walk 150 ft (QC): 6 Walking 10ft on Uneven Surface: 6 1 Step (curb) (QC): 6 4 Steps (QC): 6 12 Steps (QC): 4 Picking up an Object (QC): 6 Does the Pt use WC or Scooter?: No Wheel 50 feet with 2 turns (QC: 9 Wheel 150 feet: 9 PT Plan Treatment/Plan Treatment Plan: Continue Plan of Care Treatment Plan: Bed Mobility, Education, Functional Activity Pat, Functional Strength, Group Therapy, Gait, Safety, Therapeutic Exercise, Transfers Treatment Duration: Jan 24, 2022 Frequency: At least 5 of 7 days/Wk (IRF) Estimated Hrs Per Day: 1.5 hours per day Patient and/or Family Agrees t: Yes Safety Risks/Education Patient Education: Gait Training, Transfer Techniques Time/GCodes Time In: 915 Time Out: 1015 Total Billed Treatment Time: 60 Total Billed Treatment Visit, Gait (30), Ex (30) MAUREEN DÍAZ PT Dec 19, 2021 12:59
--- NOTE | 2021-12-19 13:57 | Physical Therapy Daily Note ---
PT Daily Note-Current Subjective Patient sitting in the chair upon PT arrival, agreeable to treatment. Reports no pain at this moment. Transfers SCALE: Activities may be completed with or without assistive devices. 9-Gewcdtwdmm-qvphwwz completes the activity by him/herself with no assistance from a helper. 5-Set-up or Clean-up Assistance-helper sets up or cleans up; patient completes activity. [place] assists only prior to or following the activity. 4-Supervision or Touching Assistance-helper provides verbal cues and/or touching/steadying and/or contact guard assistance as patient completes activity. Assistance may be provided throughout the activity or intermittently. 3-Partial/Moderate Assistance-helper does LESS THAN HALF the effort. [place] lifts, holds or supports trunk or limbs, but provides less than half the effort. 2-Substantial/Maximal Assistance-helper does MORE THAN HALF the effort. [place] lifts or holds trunk or limbs and provides more than half the effort. 1-Aupnannti-updwyc does ALL the effort. Patient does none of the effort to complete the activity. Or, the assistance of 2 or more helpers is required for the patient to complete the activity. If activity was not attempted, code reason: 7-Patient Refused. 9-Not Applicable-not attempted and the patient did not perform the activity before the current illness, exacerbation or injury. 10-Not Attempted due to Environmental Limitations-(lack of equipment, weather restraints, etc.). 88-Not Attempted due to Medical Conditions or Safety Concerns. Sit to Stand (QC): 4 Chair/Ahm-ek-Zdqpf Xfer(QC): 4 Toilet Transfer (QC): 4 Weight Bearing Right Lower Extremity: Right Full Weight Bearing Left Lower Extremity: Left Full Weight Bearing Gait Training Does the Patient Walk?: Yes Distance: 100 x 2 Walk 10 feet (QC): 4 Walk 50 ft with 2 Turns(QC): 4 Exercises Standing: Heel/toe raises, Marching, Sit to Stand Treatments Patient tolerated treatment fair. Demonstrates CGA for all observed transfers. Patient ambulates 50 feet x 2 with FWW, with CGA and verbal cues for safety, progression, conservation of energy, posture. Patient requires sitting rest break at each 50 foot interval. Patient performs Standing LE therapeutic exercise and Nu Step as listed above. Patient in chair post treatment with all needs met, nursing notified, call light in hand, in the room. Assessment Current Status: Fair Progress PT Detention Goals Detention Goals PT Senior Tax Analyst Goals Time Frame: Jan 04, 2022 Roll Left & Right (QC): 6 Sit to Lying (QC): 6 Lying-Sitting on Side/Bed(QC): 6 Sit to Stand (QC): 6 Chair/Vbn-oj-Bxjhr Xfer(QC): 6 Toilet Transfer (QC): 6 Car Transfer (QC): 6 Does the Patient Walk: Yes Walk 10 feet (QC): 6 Walk 50ft with 2 Turns (QC): 6 Walk 150 ft (QC): 6 Walking 10ft on Uneven Surface: 6 1 Step (curb) (QC): 6 4 Steps (QC): 6 12 Steps (QC): 4 Picking up an Object (QC): 6 Does the Pt use WC or Scooter?: No Wheel 50 feet with 2 turns (QC: 9 Wheel 150 feet: 9 PT Plan Treatment/Plan Treatment Plan: Continue Plan of Care Treatment Plan: Bed Mobility, Education, Functional Activity Pat, Functional Strength, Group Therapy, Gait, Safety, Therapeutic Exercise, Transfers Treatment Duration: Jan 24, 2022 Frequency: At least 5 of 7 days/Wk (IRF) Estimated Hrs Per Day: 1.5 hours per day Patient and/or Family Agrees t: Yes Time/GCodes Time In: 1300 Time Out: 1330 Total Billed Treatment Time: 30 Total Billed Treatment Visit, Sarah, MAUREEN Valverde PT Dec 19, 2021 13:57
[2021-12-19 20:20] VITALS: BP 144/81
[2021-12-19] MEDS: OLANZapine 2.5 MG (ZyPREXA) TAB PO SCH (22:47)
--- NOTE | 2021-12-20 06:11 | PM&R Progress Note ---
Subjective HPI/CC On Admission Date Seen by Provider: Dec 20, 2021 Time Seen by Provider: 12:30 Subjective/Events-last exam 12/20/2021: Patient in good mood Eating well Preop visit with Dr. Parks on Thursday Surgery on Thursday12/19/2021: Had a noninjury fall last night Discharge plan for Thursday No other major concerns No pain 12/18/2021: Pt is doing a lot better Confused at times which is baseline Loose stools so held laxatives Surgery for Thursday12/17/2021: Pt is doing well Confusion is definitely noted and today she is clear Surgery consult by Dr. Parks and oncology 12/16/2021: Pt is doing pretty well Bowels moved in the shower Will discontinue Urecholine, minimizing urinary breaks at night 12/15/2021: Doing better at bedside No pain reported Eating well Glucose noted 12/14/2021: Slept all night long last night Feels really good Zyprexa taking care of the delirium No other concerns No falls 12/13/2021: Patient seems to be doing better No pain reported Less confusion Zyprexa given last night and it appears to have helped sleep Checked meds and labs Review of Systems General: Fatigue, Malaise Objective Exam Vital Signs Vital Signs Date Time Temp Pulse Resp B/P (MAP) Pulse Ox O2 Delivery O2 Flow Rate FiO2 12/20/21 21:00 93 Room Air 12/20/21 20:36 36.6 85 16 148/68 (94) Capillary Refill : General Appearance: No Apparent Distress, Chronically ill, Obese HEENT: PERRL/EOMI, Normal ENT Inspection Neck: Normal Inspection, Non Tender Respiratory: Chest Non Tender, No Accessory Muscle Use, No Respiratory Distress Cardiovascular: Regular Rate, Rhythm, No JVD Gastrointestinal: Normal Bowel Sounds, No Organomegaly, No Pulsatile Mass, Non Tender, Soft Back: Normal Inspection, No CVA Tenderness, No Vertebral Tenderness Extremity: Normal Inspection, Normal Range of Motion Neurologic/Psychiatric: Alert, Normal Mood/Affect Skin: Normal Color, Warm/Dry Lymphatic: No Adenopathy Results/Procedures Lab Laboratory Tests 12/20/21 06:48 Patient resulted labs reviewed. FIM Transfers Therapy Code Descriptions/Definitions Functional [place] Measure: 0=Not Assessed/NA 4=Minimal Assistance 1=Total Assistance 5=Supervision or Setup 2=Maximal Assistance 6=Modified [place] 3=Moderate Assistance 7=Complete IndependenceSCALE: Activities may be completed with or without assistive devices. 0-Yuocphfsdj-qvakymv completes the activity by him/herself with no assistance from a helper. 5-Set-up or Clean-up Assistance-helper sets up or cleans up; patient completes activity. [place] assists only prior to or following the activity. 4-Supervision or Touching Assistance-helper provides verbal cues and/or touching/steadying and/or contact guard assistance as patient completes activity. Assistance may be provided throughout the activity or intermittently. 3-Partial/Moderate Assistance-helper does LESS THAN HALF the effort. [place] lifts, holds or supports trunk or limbs, but provides less than half the effort. 2-Substantial/Maximal Assistance-helper does MORE THAN HALF the effort. [place] lifts or holds trunk or limbs and provides more than half the effort. 3-Kdjquxldd-zwreze does ALL the effort. Patient does none of the effort to complete the activity. Or, the assistance of 2 or more helpers is required for the patient to complete the activity. If activity was not attempted, code reason: 7-Patient Refused. 9-Not Applicable-not attempted and the patient did not perform the activity before the current illness, exacerbation or injury. 10-Not Attempted due to Environmental Limitations-(lack of equipment, weather restraints, etc.). 88-Not Attempted due to Medical Conditions or Safety Concerns. Roll Left to Right (QC): 4 Sit to Lying (QC): 4 Sit to Stand (QC): 4 Chair/Ltx-sc-Vsxzn Xfer(QC): 4 Car Transfer (QC): 4 Gait Training Does the Patient Walk?: Yes Distance: 100 x 2 Walk 10 feet (QC): 4 Walk 50 ft with 2 Turns(QC): 4 Walk 150 ft (QC): 4 Walking 10ft/uneven surface-QC: 4 Gait Persons Needed: 1 Gait Assistive Device: FWW Wheelchair Training Does the Pt Use a Wheelchair?: No Wheel 50 ft with 2 turns (QC): 9 Wheel 150 ft (QC): 9 Stair Training #of Steps: 4 1 Step (curb) (QC): 3 4 Steps (QC): 3 12 Steps (QC): 88 Balance Picking up an Object (QC): 4 ADL-Treatment Eating (QC): 6 Oral Hygiene (QC): 4 (in sitting) Shower/Bathe Self (QC): 4 Upper Body Dressing (QC): 3 (min a for bra, set up for shirt) Lower Body Dressing (QC): 3 On/Off Footwear (QC): 2 Toileting Hygiene (QC): 3 Toilet Transfer (QC): 4 Assessment/Plan Assessment and Plan Assess & Plan/Chief Complaint Assessment: Debility Colon masses pathology pending Hematemesis UTI completed treatment since no growth to date on urine culture Delirium improved with Zyprexa Acute urinary retention resolved Hypertension Hyperlipidemia Dementia 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 Fall risk Plan: Rocephin PT OT Supportive care Delirium management 12/13/2021: Monitor sugar Fall risk 12/14/2021: DC Ayde Improved status 12/15/2021: Monitor BP and sugar Monitor closely 12/16/2021: Monitor confusion 12/17/2021: Surgery planned 12/18/2021: Continue current treatment Strengthening prior to Thursday colonic surgery 12/19/2021: Discharge planned for Thursday Surgery on Thursday12/20/2021: Discharge home tomorrow (1) GI bleed (2) Colonic mass (3) Dementia Status: Acute (4) Generalized weakness Status: Acute (5) Hematemesis Status: Acute (6) Urinary tract infection Status: Acute (7) Weakness (8) Edema (9) Diarrhea (10) Diabetes JAMES BOWDEN DO Dec 20, 2021 06:11
[2021-12-20] MEDS: GLIMEPIRIDE 1 MG (AMARYL) TAB PO SCH ×2 (06:21→17:00)
[2021-12-20] MEDS: SUCRALFATE 1 GM (CARAFATE) TAB PO SCH ×4 (06:21→20:57)
[2021-12-20] MEDS: inSUlin ASPART (NovoLOG) 1 UNIT/0.01 ML (CHARGE PER UNIT) SC SCH ×4 (06:22→20:57)
[2021-12-20 07:01] LABS: BASOPHILS % (AUTO) 1 % (0-10); EOSINOPHILS # (AUTO) 0.1 10^3/uL (0.0-0.3); EOSINOPHILS % (AUTO) 3 % (0-10); HEMATOCRIT 31 % (35-52); HEMOGLOBIN 10.2 g/dL (11.5-16.0); LYMPHOCYTES # (AUTO) 1.1 10^3/uL (1.0-4.0); LYMPHOCYTES % (AUTO) 24 % (12-44); MEAN CORPUSCULAR HEMOGLOBIN 27 pg (25-34); MEAN CORPUSCULAR HGB CONC 33 g/dL (32-36); MEAN CORPUSCULAR VOLUME 84 fL (80-99); MEAN PLATELET VOLUME 8.8 fL (9.0-12.2); MONOCYTES # (AUTO) 0.3 10^3/uL (0.0-1.0); MONOCYTES % (AUTO) 8 % (0-12); NEUTROPHILS # (AUTO) 2.8 10^3/uL (1.8-7.8); NEUTROPHILS % (AUTO) 64 % (42-75); PLATELET COUNT 206 10^3/uL (130-400); WHITE BLOOD COUNT 4.4 10^3/uL (4.3-11.0)
[2021-12-20 07:20] LABS: ALBUMIN 3.3 GM/DL (3.2-4.5); POTASSIUM 3.7 MMOL/L (3.6-5.0)
[2021-12-20 07:22] LABS: CALCIUM 8.7 MG/DL (8.5-10.1)
[2021-12-20 07:23] LABS: TOTAL PROTEIN 5.7 GM/DL (6.4-8.2)
[2021-12-20 07:25] LABS: BILIRUBIN,TOTAL 0.2 MG/DL (0.1-1.0)
[2021-12-20 07:26] LABS: CREATININE SERUM 0.73 MG/DL (0.60-1.30)
[2021-12-20 07:50] VITALS: BP 165/79
[2021-12-20] MEDS: lisINopril 20 MG (PRINIVIL) TABLET PO SCH (09:03)
[2021-12-20] MEDS: PANTOPRAZOLE 40 MG (PROTONIX) TAB PO SCH (09:03)
[2021-12-20] MEDS: amLODIPine 5 MG (NORVASC) TAB PO SCH (09:03)
[2021-12-20] MEDS: SENNOSIDES 8.6 MG (SENOKOT) TAB PO SCH ×2 (09:03→20:57)
[2021-12-20] MEDS: MEMANTINE 10 MG (NAMENDA) TABLET PO SCH ×2 (09:03→20:57)
[2021-12-20] MEDS: DOCUSATE SODIUM 100 MG (COLACE) CAP PO SCH ×2 (09:03→20:57)
[2021-12-20] MEDS: polyethylene glycoL POWDER 17 GM (MIRALAX) PACK PO SCH ×2 (09:04→20:58)
--- NOTE | 2021-12-20 11:20 | Physical Therapy Daily Note ---
PT Daily Note-Current Subjective Patient sitting in chair upon PT arrival, agreeable to treatment. Reports 0/10 pain currently. Mental Status Patient Orientation: Person Transfers SCALE: Activities may be completed with or without assistive devices. 3-Bilckdrver-vwjuloi completes the activity by him/herself with no assistance from a helper. 5-Set-up or Clean-up Assistance-helper sets up or cleans up; patient completes activity. [place] assists only prior to or following the activity. 4-Supervision or Touching Assistance-helper provides verbal cues and/or touching/steadying and/or contact guard assistance as patient completes activity. Assistance may be provided throughout the activity or intermittently. 3-Partial/Moderate Assistance-helper does LESS THAN HALF the effort. [place] lifts, holds or supports trunk or limbs, but provides less than half the effort. 2-Substantial/Maximal Assistance-helper does MORE THAN HALF the effort. [place] lifts or holds trunk or limbs and provides more than half the effort. 6-Vqytvypff-fkczpb does ALL the effort. Patient does none of the effort to complete the activity. Or, the assistance of 2 or more helpers is required for the patient to complete the activity. If activity was not attempted, code reason: 7-Patient Refused. 9-Not Applicable-not attempted and the patient did not perform the activity before the current illness, exacerbation or injury. 10-Not Attempted due to Environmental Limitations-(lack of equipment, weather restraints, etc.). 88-Not Attempted due to Medical Conditions or Safety Concerns. Roll Left & Right (QC): 4 Sit to Lying (QC): 4 Lying to Sitting/Side of Bed(Q: 4 Sit to Stand (QC): 4 Chair/Kuu-vu-Wzzga Xfer(QC): 4 Toilet Transfer (QC): 4 Car Transfer (QC): 4 Weight Bearing Right Lower Extremity: Right Full Weight Bearing Left Lower Extremity: Left Full Weight Bearing Gait Training Does the Patient Walk?: Yes Distance: 100 feet Walk 10 feet (QC): 6 Walk 50 ft with 2 Turns(QC): 4 Walk 150 ft (QC): 88 Walking 10ft/uneven surface-QC: 4 Gait Persons Needed: 1 Gait Assistive Device: FWW Wheelchair Training Does the Pt Use a Wheelchair?: No Stair Training Stair Training: Handrails/: 2 handrails #of Steps: 4 1 Step (curb) (QC): 4 4 Steps (QC): 3 12 Steps (QC): 88 Stairs: Pattern: Step to Balance Picking up an Object (QC): 4 Exercises NuStep Minutes: 10 NuStep Workload: 5 Assessment Current Status: Fair Progress Patient tolerated treatment fair, however is at baseline for PLOF. She requires frequent if not constant verbal cues for path, progression and obstacles. She has been educated numerous times on proper performance of the sitting into a chair safely, however still attempts to float to the chair, not squaring up her body, and not using her UEs to guide her descent. She was able to perform all bed mobility with SBA and all transfers with SBA. Patient ascends/descends 4 steps with min a and verbal cues for safety, progression, and performance. Patient unable to continue after 4 steps due to fatigue. Patient in her chair post treatment with all needs met, nursing notified, call light in hand, and chair alarm activated. PT Fbi Sharpshooter Goals Fbi Sharpshooter Goals PT Fbi Sharpshooter Goals Time Frame: Jan 04, 2022 Roll Left & Right (QC): 6 Sit to Lying (QC): 6 Lying-Sitting on Side/Bed(QC): 6 Sit to Stand (QC): 6 Chair/Xdk-kc-Htjkd Xfer(QC): 6 Toilet Transfer (QC): 6 Car Transfer (QC): 6 Does the Patient Walk: Yes Walk 10 feet (QC): 6 (MET) Walk 50ft with 2 Turns (QC): 6 Walk 150 ft (QC): 6 Walking 10ft on Uneven Surface: 6 1 Step (curb) (QC): 6 4 Steps (QC): 6 12 Steps (QC): 4 Picking up an Object (QC): 6 Does the Pt use WC or Scooter?: No Wheel 50 feet with 2 turns (QC: 9 Wheel 150 feet: 9 PT Plan Treatment/Plan Treatment Plan: Continue Plan of Care Treatment Plan: Bed Mobility, Education, Functional Activity Pat, Functional Strength, Group Therapy, Gait, Safety, Therapeutic Exercise, Transfers Treatment Duration: Jan 24, 2022 Frequency: At least 5 of 7 days/Wk (IRF) Estimated Hrs Per Day: 1.5 hours per day Patient and/or Family Agrees t: Yes Safety Risks/Education Patient Education: Gait Training, Transfer Techniques, Steps Teaching Recipient: Patient Teaching Methods: Demonstration, Discussion Response to Teaching: Reinforcement Needed Time/GCodes Time In: 915 Time Out: 1015 Total Billed Treatment Time: 60 Total Billed Treatment Visit, YANIQUE Smith (2), Ex MAUREEN DÍAZ PT Dec 20, 2021 11:20
--- NOTE | 2021-12-20 12:04 | Occupational Ther Daily Note ---
OT Current Status-Daily Note Subjective Pt denies pain, agreeable to shower. Appearance Pt requesting to eat lunch in dining area. Left sitting at table, family present Mental Status/Objective Patient Orientation: Person, Place ADL-Treatment Therapy Code Descriptions/Definitions Functional [place] Measure: 0=Not Assessed/NA 4=Minimal Assistance 1=Total Assistance 5=Supervision or Setup 2=Maximal Assistance 6=Modified [place] 3=Moderate Assistance 7=Complete IndependenceSCALE: Activities may be completed with or without assistive devices. 5-Rbtmsvccmu-ysrgjun completes the activity by him/herself with no assistance from a helper. 5-Set-up or Clean-up Assistance-helper sets up or cleans up; patient completes activity. [place] assists only prior to or following the activity. 4-Supervision or Touching Assistance-helper provides verbal cues and/or touching/steadying and/or contact guard assistance as patient completes activity. Assistance may be provided throughout the activity or intermittently. 3-Partial/Moderate Assistance-helper does LESS THAN HALF the effort. [place] lifts, holds or supports trunk or limbs, but provides less than half the effort. 2-Substantial/Maximal Assistance-helper does MORE THAN HALF the effort. [place] lifts or holds trunk or limbs and provides more than half the effort. 6-Sqcafdquk-xnjxeo does ALL the effort. Patient does none of the effort to complete the activity. Or, the assistance of 2 or more helpers is required for the patient to complete the activity. If activity was not attempted, code reason: 7-Patient Refused. 9-Not Applicable-not attempted and the patient did not perform the activity before the current illness, exacerbation or injury. 10-Not Attempted due to Environmental Limitations-(lack of equipment, weather restraints, etc.). 88-Not Attempted due to Medical Conditions or Safety Concerns. Eating (QC): 5 Oral Hygiene (QC): 6 Shower/Bathe Self (QC): 4 Upper Body Dressing (QC): 3 Lower Body Dressing (QC): 4 On/Off Footwear: 2 Toileting Hygiene (QC): 4 Toilet Transfer (QC): 4 Shower performed; 100% completed in sitting. Improved initiation this date, only needing cues to initiate washing feet. Buttocks washed with pt performing lateral and anterior pelvic leans. Clothing donned seated on shower bench. Pt is unable to recall techniques learned in past sessions. Repetition of cues every day. Post cues, pt was able to fasten bra, thread UE's through straps and bring bra overhead with verbal cues only. Min a to pull down around torso. Set up assist when donning t-shirt. Pt continues to decline use of registered route associate when donning LB clothing. With extra time and effort exhibited she was able to thread feet into shorts and brief without registered route associate. Intermittent CGA for safety as she stood to pull clothing up to waist. Reminder cues to keep One hand on grab bar as other managed clothing. Dependent to don Abdi hose. Assist to position LHSH when sliding heel into shoes. Grooming tasks performed seated at sink, no cues/assistance needed. Pt requested to eat lunch out in dining area with . She ambulated to dining area with walker and CGA. Increased unsteadiness and walker management with distractions. Cues for posture and attention while ambulating. Education OT Patient Education: Correct positioning, Energy conservation, Modified ADL techniques, Progress toward Goal/Update tx plan, Purpose of tx/functional activities, Rehab process, Safety issues, Transfer techniques, Use of adapted equipment Teaching Recipient: Patient Teaching Methods: Demonstration, Discussion Response to Teaching: Verbalize Understanding, Return Demonstration, Reinforcement Needed OT Short Term Goals Short Term Goals Time Frame: Dec 19, 2021 Eatin Oral hygiene: 5 Toileting hygiene: 4 Shower/bathe self: 4 Upper body dressin Lower body dressin Putting on/taking off footwear: 2 OT Multi Site Leasing Consultant Goals Multi Site Leasing Consultant Goals Time Frame: Dec 25, 2021 Eating (QC): 5 (met) Oral Hygiene (QC): 6 (met) Toileting Hygiene (QC): 6 (not met, CGA for safety during clothing management) Shower/Bathe Self (QC): 4 (met) Upper Body Dressing (QC): 5 (set up for shirts, Min a for bra, (met)) Lower Body Dressing (QC): 3 (met) On/Off Footwear (QC): 2 (met) Additional Goals: 1-Demonstrate ADL Tasks, 2-Verbalize Understanding, 3- ImproveStrength/Pat 1=Demonstrate adherence to instructed precautions during ADL tasks. 2=Patient will verbalize/demonstrate understanding of assistive devices/modifications for ADL. 3=Patient will improve strength/tolerance for activity to enable patient to perform ADL's. OT Education/Plan Problem List/Assessment Assessment: Decreased Activ Tolerance, Decreased Safety Aware, Decreased UE Strength, Edema, Impaired Cognition, Impaired Funct Balance, Impaired Self-Care Skills Discharge Recommendations Plan/Recommendations: Continue POC Therapy Discharge Recommendati: Post Acute OT Equpiment Recommendations-D/C: [place] Treatment Plan/Plan of Care Treatment,Training & Education: Yes Patient would benefit from OT for education, treatment and training to promote independence in ADL's, mobility, safety and/or upper extremity function for ADL's. Plan of Care: ADL Retraining, Caregiver Training, Cognitive Retraining, Functional Mobility, Group Exercise/Act as Ind, UE Funct Exercise/Act Treatment Duration: Dec 25, 2021 Frequency: At least 5 of 7 days/Wk (IRF) Estimated Hrs Per Day: 1.5 hours per day (75-90 min/day ) Agreement: Yes Rehab Potential: Fair Time/GCodes Start Time: 11:00 Stop Time: 12:15 Total Time Billed (hr/min): 75 Billed Treatment Time 1 visit ADL x4 (65 min) FA (10 min) Dayna Crandall OT Dec 20, 2021 12:04
--- NOTE | 2021-12-20 13:31 | Physical Therapy Daily Note ---
PT Daily Note-Current Subjective Patient lying supine in bed upon PT arrival, agreeable to treatment. Reports no pain currently but notes she is more tired this afternoon. Mental Status Patient Orientation: Person Transfers SCALE: Activities may be completed with or without assistive devices. 0-Jaadsykofv-tuftyle completes the activity by him/herself with no assistance from a helper. 5-Set-up or Clean-up Assistance-helper sets up or cleans up; patient completes activity. [place] assists only prior to or following the activity. 4-Supervision or Touching Assistance-helper provides verbal cues and/or touching/steadying and/or contact guard assistance as patient completes activity. Assistance may be provided throughout the activity or intermittently. 3-Partial/Moderate Assistance-helper does LESS THAN HALF the effort. [place] lifts, holds or supports trunk or limbs, but provides less than half the effort. 2-Substantial/Maximal Assistance-helper does MORE THAN HALF the effort. [place] lifts or holds trunk or limbs and provides more than half the effort. 0-Yxdzmvpiw-eejshh does ALL the effort. Patient does none of the effort to complete the activity. Or, the assistance of 2 or more helpers is required for the patient to complete the activity. If activity was not attempted, code reason: 7-Patient Refused. 9-Not Applicable-not attempted and the patient did not perform the activity before the current illness, exacerbation or injury. 10-Not Attempted due to Environmental Limitations-(lack of equipment, weather restraints, etc.). 88-Not Attempted due to Medical Conditions or Safety Concerns. Roll Left & Right (QC): 6 Sit to Lying (QC): 6 Lying to Sitting/Side of Bed(Q: 4 Sit to Stand (QC): 4 Chair/Ywg-tv-Bkezf Xfer(QC): 4 Weight Bearing Right Lower Extremity: Right Full Weight Bearing Left Lower Extremity: Left Full Weight Bearing Gait Training Does the Patient Walk?: Yes Distance: 250 Walk 10 feet (QC): 6 Walk 50 ft with 2 Turns(QC): 4 Walk 150 ft (QC): 4 Gait Assistive Device: FWW Assessment Current Status: Fair Progress Patient tolerated treatment well. Demonstrate improved tolerance to activity and increased gait distance this afternoon. Patient ambulates 250 feet with FWW, with SBA and verbal cues for safety, progression ad conservation of energy. Patient fatigues towards the end of gait, however only requires slower pace and is able to continue ambulating. Patient in chair post treatment with all needs met, nursing notified, call light in hand, and chair alarm activated. PT [place] Cutting Machine Operator Goals [place] Cutting Machine Operator Goals PT [place] Cutting Machine Operator Goals Time Frame: Jan 04, 2022 Roll Left & Right (QC): 6 Sit to Lying (QC): 6 Lying-Sitting on Side/Bed(QC): 6 Sit to Stand (QC): 6 Chair/Lbn-vr-Paobl Xfer(QC): 6 Toilet Transfer (QC): 6 Car Transfer (QC): 6 Does the Patient Walk: Yes Walk 10 feet (QC): 6 (MET) Walk 50ft with 2 Turns (QC): 6 Walk 150 ft (QC): 6 Walking 10ft on Uneven Surface: 6 1 Step (curb) (QC): 6 4 Steps (QC): 6 12 Steps (QC): 4 Picking up an Object (QC): 6 Does the Pt use WC or Scooter?: No Wheel 50 feet with 2 turns (QC: 9 Wheel 150 feet: 9 PT Plan Treatment/Plan Treatment Plan: Continue Plan of Care Treatment Plan: Bed Mobility, Education, Functional Activity Pat, Functional Strength, Group Therapy, Gait, Safety, Therapeutic Exercise, Transfers Treatment Duration: Jan 24, 2022 Frequency: At least 5 of 7 days/Wk (IRF) Estimated Hrs Per Day: 1.5 hours per day Patient and/or Family Agrees t: Yes Safety Risks/Education Patient Education: Gait Training Teaching Recipient: Patient Teaching Methods: Demonstration, Discussion Response to Teaching: Verbalize Understanding, Return Demonstration Time/GCodes Time In: 1300 Time Out: 1315 Total Billed Treatment Time: 15 Total Billed Treatment Visit, MAUREEN Estevez PT Dec 20, 2021 13:31
--- NOTE | 2021-12-20 14:53 | Speech Therapy Daily Note ---
Speech Daily Progress Note Subjective Date Seen by Provider: Dec 20, 2021 Time Seen by Provider: 13:30 The patient was seated upright in her recliner, awake and alert upon entrance to her room by the clinician. The patient greeted the clinician appropriately and was agreeable to participation in the cognitive linguistic treatment session. Objective - Orientation: With use of the in-room white board, the patient accurately identified month, day of the week, date, and year. - Functional Recall: The patient was able to accurately recall therapy exercises from the day. Expression of Ideas/Wants: Exhibits (3) Understanding Verbal Content: Usually Understands (3) Brief Interview-Mental Status: Yes Repetition of Three Words: Three (3) Temporal Orientation: Year: Accurate. Correct. Temporal Orientation: Month: Accurate. Correct. Temporal Orientation: Day: Correct (1) Recall : Wear to say "Sock": Yes, no cue required (2) Recall : Color: Yes, no cue required (2) Recall : Bed: Yes,no cue required (2) Memory/Recall Ability: Current season, That he or she is in a hsp/hsp unit, staff names Assessment Assessment Current Status: Poor Progress Treatment Plan Discontinue ST Speech Short Term Goals Short Term Goals Short Term Goals 1. The patient will display recall of external memory strategies with 90% accuracy. Time Frame-STG: One Week. Speech Custom Applicator Goals Mcc Goals 1. The patient will demonstrate improve cognitive linguistic skills for safe discharge to the least restrictive environment. Time Frame: 10 days. Speech-Plan Treatment Plan Speech Therapy Treatment Plan: Discontinue ST Treatment Duration: Dec 25, 2021 Frequency: Modified Program (IRF) (Four to five times per week.) Estimated Hrs Per Day: .5 hour per day Rehab Potential: Fair Safety Risks/Education Teaching Recipient: Patient Teaching Methods: Discussion Response to Teaching: Reinforcement Needed Education Topics Provided: Plan of Care Time Speech Therapy Time In: 13:30 Speech Therapy Time Out: 14:00 Total Billed Time: 30 Billed Treatment Time NANCY Evangelista [facility] Dec 20, 2021 14:53
--- NOTE | 2021-12-20 14:54 | Therapy Team Discharge Summary ---
Therapy Discharge Summary Discharge Recommendations Date of Discharge Physical Therapy Roll Left to Right (QC): 6 Sit to Lying (QC): 6 Lying to Sitting/Side of Bed(Q: 4 Sit to Stand (QC): 4 Chair/Ecg-px-Nklpo Xfer(QC): 4 Toilet Transfer (QC): 4 Car Transfer (QC): 4 Does the Patient Walk: Yes Mode of Locomotion: Walk Anticipated Mode of Locomotion: Walk Walk 10 feet (QC): 6 Walk 50 ft with 2 Turns(QC): 4 Walk 150 ft (QC): 4 Walking 10ft on uneven surface: 4 Distance: 250 feet Gait Assistive Device: FWW Does the Pt Use a Wheelchair: No Wheel 50 ft with 2 turns (QC): 9 Wheel 150 ft (QC): 9 #of Steps: 4 1 Step (curb) (QC): 4 4 Steps (QC): 3 12 Steps (QC): 88 Balance Sitting Static: Normal Balance Sitting Dynamic: Good Balance-Standing Static: Fair Picking up an Object (QC): 4 Occupational Therapy Decreased Activ Tolerance, Decreased Safety Aware, Decreased UE Strength, Edema, Impaired Cognition, Impaired Funct Balance, Impaired Self-Care Skills Eating (QC): 5 Oral Hygiene (QC): 6 Shower/Bathe Self (QC): 4 Upper Body Dressing (QC): 3 Lower Body Dressing (QC): 4 On/Off Footwear (QC): 2 Toileting Hygiene (QC): 4 Speech-Language Pathology Expression of Ideas/Wants: Exhibits (3) Understanding Verbal Content: Usually Understands (3) Brief Interview-Mental Status: Yes Repetition of Three Words: Three (3) Temporal Orientation: Year: Accurate. Correct. Temporal Orientation: Month: Accurate. Correct. Temporal Orientation: Day: Correct (1) Recall : Wear to say "Sock": Yes, no cue required (2) Recall : Color: Yes, no cue required (2) Recall : Bed: Yes,no cue required (2) Memory/Recall Ability: Current season, That he or she is in a hsp/hsp unit, staff names PT Detention Goals Bag Washer Goals PT Bag Washer Goals Time Frame: Jan 04, 2022 Roll Left to Right (QC): 6 Sit to Lying (QC): 6 Lying-Sitting on Side/Bed(QC): 6 Sit to Stand (QC): 6 Chair/Ikd-gz-Nvudo Xfer(QC): 6 Car Transfer (QC): 6 Does the Patient Walk: Yes Walk 10 feet (QC): 6 (MET) Walk 10ft-Uneven Surface(QC): 6 Walk 50ft with 2 Turns (QC): 6 Walk 150 ft (QC): 6 Does the Pt use WC or Scooter?: No Wheel 50 feet with 2 turns (QC: 9 1 Step (curb) (QC): 6 4 Steps (QC): 6 12 Steps (QC): 4 Picking up an Object (QC): 6 OT Bag Washer Goals Bag Washer Goals Time Frame: Dec 25, 2021 Eating (QC): 5 (met) Oral Hygiene (QC): 6 (met) Shower/Bathe Self (QC): 4 (met) Upper Body Dressing (QC): 5 (set up for shirts, Min a for bra, (met)) Lower Body Dressing (QC): 3 (met) On/Off Footwear (QC): 2 (met) Toileting Hygiene (QC): 6 (not met, CGA for safety during clothing management) Toilet/Commode Transfer (QC): 6 Additional Goals: 1-Demonstrate ADL Tasks, 2-Verbalize Understanding, 3- ImproveStrength/Pat 1=Demonstrate adherence to instructed precautions during ADL tasks. 2=Patient will verbalize/demonstrate understanding of assistive devices/modifications for ADL. 3=Patient will improve strength/tolerance for activity to enable patient to perform ADL's. Speech Bag Washer Goals Bag Washer Goals 1. The patient will demonstrate improve cognitive linguistic skills for safe discharge to the least restrictive environment. NOT MET. The patient remains at baseline status with fluctuating cognitive skills (specifically memory, sequencing, and problem solving) secondary to known diagnosis of dementia. Time Frame: 10 days. RHIANNA HANSON Dec 20, 2021 14:54
[2021-12-20 20:36] VITALS: BP 148/68
[2021-12-20] MEDS: OLANZapine 2.5 MG (ZyPREXA) TAB PO SCH (20:57)
[2021-12-20] MEDS ORDERED: OLAN2.5T27 PO (21:23)
[2021-12-20] MEDS ORDERED: PANT40TA52 PO (21:23)
[2021-12-20] MEDS ORDERED: SUCR1TAB PO (21:23)
[2021-12-20] MEDS ORDERED: AMLO-250 PO (21:23)
--- NOTE | 2021-12-20 21:24 | D/C HH Face to Face Order ---
D/C Face to Face Orders Reconcile Patient Problems Problems Reviewed?: Yes Instructions for Patient Via [facility], Patient Instructions/FollowUp: Dr Parks Thursday for preop Physician to follow Patient: Karla Discharge Diet for Home: ADA Diet Patient Problems: Colon mass GI bleed Dementia Patient Data-Allergies,Ht & Wt Patient Allergies: Coded Allergies: Penicillins (Unverified Allergy, Intermediate, Rash, 09/03/21) Sulfa (Sulfonamide Antibiotics) (Unverified Allergy, Intermediate, Rash, 09/03/21) Home Health Need/Face to Face Date of Face to Face: Dec 20, 2021 Clinical Findings: Generalized weakness and fatigue, Instability, Muscle weakness, Unsteady gait I have seen Pt [id number]: Yes Discharged To: Home Diagnosis/Conditions: Colon mass GI bleed Dementia Patient is Homebound due to: CognItive deficits, Tona fall risk due to instabilty, Muscle weakness Homebound Status Due to the above stated illness, injury or surgical procedure (medical condition or diagnosis) and associated clinical findings, the patient is homebound because of his/her inability to leave home except with aid of a supportive device and/or person AND leaving the home requires a considerable and taxing effort or is medically contraindicated. Pt req the following assistanc: Walker Home Health Nursing Orders Home Health Services Order: Nursing Services, Test Design Engineer-Evaluate & Treat, Physical Therapy-Evaluate & Treat Certify Stmt I certify that this patient is under my care and that I, a nurse practitioner or a physician; a dental assistant working with me, had a face to face encounter that - meets the physician face to face encounter requirements with this patient as dated. JAMES BOWDEN DO Dec 20, 2021 21:24
[2021-12-21] MEDS: SUCRALFATE 1 GM (CARAFATE) TAB PO SCH ×2 (06:35→11:39)
[2021-12-21] MEDS: inSUlin ASPART (NovoLOG) 1 UNIT/0.01 ML (CHARGE PER UNIT) SC SCH ×2 (06:35→11:39)
--- NOTE | 2021-12-21 06:35 | Discharge Summary ---
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 Fall risk Plan: Rocephin PT OT Supportive care Delirium management 12/13/2021: Monitor sugar Fall risk 12/14/2021: DC Rocephin Improved status 12/15/2021: Monitor BP and sugar Monitor closely 12/16/2021: Monitor confusion 12/17/2021: Surgery planned 12/18/2021: Continue current treatment Strengthening prior to Thursday colonic surgery 12/19/2021: Discharge planned for Thursday Surgery on Thursday12/20/2021: Discharge home tomorrow (1) GI bleed (2) Colonic mass (3) Dementia Status: Acute (4) Generalized weakness Status: Acute (5) Hematemesis Status: Acute (6) Urinary tract infection Status: Acute (7) Weakness (8) Edema (9) Diarrhea (10) Diabetes Discharge Summary Discharge Physical Examination Allergies: Coded Allergies: Penicillins (Unverified Allergy, Intermediate, Rash, 09/03/21) Sulfa (Sulfonamide Antibiotics) (Unverified Allergy, Intermediate, Rash, 09/03/21) Vitals & I&Os Vital Signs Date Time Temp Pulse Resp B/P (MAP) Pulse Ox O2 Delivery O2 Flow Rate FiO2 12/21/21 09:00 Room Air 12/21/21 07:15 36.5 86 18 180/72 (108) 95 General Appearance: Alert, Oriented X3, Cooperative Respiratory: Clear to Auscultation Cardiovascular: Regular Rate Neuro: Normal Gait, Normal Speech, Strength at 5/5 X4 Ext Psych/Mental Status: Mental Status NL Hospital Course Was the Problem List Reviewed?: Yes Standard hospital course. Patient was admitted after GI bleed and weakness and delirium and scope showed colon mass. She participated in all therapy and delirium had cleared with the help of Zyprexa at night and labs remained stable she was able to participate in strengthening in all therapy sessions she was discharged in improved condition to prepare for colon mass resection on Thursday by Dr. Parks. Labs (last 24 hrs) Laboratory Tests 12/12/21 20:43: Glucometer 182H 12/13/21 05:43: White Blood Count 3.8L, Red Blood Count 3.66L, Hemoglobin 10.2L, Hematocrit 31L, Mean Corpuscular Volume 85, Mean Corpuscular Hemoglobin 28, Mean Corpuscular Hemoglobin Concent 33, Red Cell Distribution Width 14.1, Platelet Count 231, Mean Platelet Volume 9.0, Immature Granulocyte % (Auto) 0, Neutrophils (%) (Auto) 59, Lymphocytes (%) (Auto) 29, Monocytes (%) (Auto) 8, Eosinophils (%) (Auto) 4, Basophils (%) (Auto) 1, Neutrophils # (Auto) 2.3, Lymphocytes # (Auto) 1.1, Monocytes # (Auto) 0.3, Eosinophils # (Auto) 0.1, Basophils # (Auto) 0.0, Immature Granulocyte # (Auto) 0.0, Sodium Level 142, Potassium Level 3.4L, Chloride Level 109H, Carbon Dioxide Level 21, Anion Gap 12, Blood Urea Nitrogen 7, Creatinine 0.72, Estimat Glomerular Filtration Rate 85, BUN/Creatinine Ratio 10, Glucose Level 188H, Calcium Level 8.6, Corrected Calcium 9.1, Total B ilirubin 0.2, Aspartate Amino Transf (AST/SGOT) 10, Alanine Aminotransferase (ALT/SGPT) 19, Alkaline Phosphatase 58, Total Protein 5.8L, Albumin 3.4 12/13/21 05:51: Glucometer 172H 12/13/21 11:47: Glucometer 205H 12/13/21 15:20: Glucometer 158H 12/13/21 20:34: Glucometer 213H 12/14/21 06:16: Glucometer 185H 12/14/21 10:55: Glucometer 234H 12/14/21 15:39: Glucometer 227H 12/14/21 21:18: Glucometer 210H 12/15/21 06:44: Glucometer 184H 12/15/21 10:54: Glucometer 203H 12/15/21 15:23: Glucometer 243H 12/15/21 20:30: Glucometer 199H 12/16/21 05:49: Glucometer 204H 12/16/21 06:35: Sodium Level 140, Potassium Level 3.7, Chloride Level 109H, Carbon Dioxide Level 19L, Anion Gap 12, Blood Urea Nitrogen 10, Creatinine 0.74, Estimat Glomerular Filtration Rate 82, BUN/Creatinine Ratio 14, Glucose Level 212H, Calcium Level 8.6, Corrected Calcium 9.2, Total Bilirubin 0.3, Aspartate Amino Transf (AST/SGOT) 14, Alanine Aminotransferase (ALT/SGPT) 17, Alkaline Phosphatase 62, Total Protein 5.7L, Albumin 3.3 12/16/21 08:38: White Blood Count 4.6, Red Blood Count 3.93, Hemoglobin 10.8L, Hematocrit 33L, Mean Corpuscular Volume 83, Mean Corpuscular Hemoglobin 28, Mean Corpuscular Hemoglobin Concent 33, Red Cell Distribution Width 13.8, Platelet Count 238, Mean Platelet Volume 8.8L, Immature Granulocyte % (Auto) 0, Neutrophils (%) (Auto) 64, Lymphocytes (%) (Auto) 24, Monocytes (%) (Auto) 7, Eosinophils (%) (Auto) 4, Basophils (%) (Auto) 1, Neutrophils # (Auto) 3.0, Lymphocytes # (Auto) 1.1, Monocytes # (Auto) 0.3, Eosinophils # (Auto) 0.2, Basophils # (Auto) 0.0, Immature Granulocyte # (Auto) 0.0 12/16/21 10:42: Glucometer 306H 12/16/21 15:15: Glucometer 205H 12/16/21 20:11: Glucometer 241H 12/17/21 05:34: Glucometer 235H 12/17/21 10:54: Glucometer 226H 12/17/21 15:32: Glucometer 217H 12/17/21 20:30: Glucometer 268H 12/18/21 05:31: Glucometer 221H 12/18/21 10:51: Glucometer 248H 12/18/21 15:17: Glucometer 302H 12/18/21 20:41: Glucometer 216H 12/19/21 05:59: Glucometer 200H 12/19/21 10:50: Glucometer 239H 12/19/21 15:27: Glucometer 242H 12/19/21 20:14: Glucometer 218H 12/20/21 05:32: Glucometer 190H 12/20/21 06:48: White Blood Count 4.4, Red Blood Count 3.75L, Hemoglobin 10.2L, Hematocrit 31L, Mean Corpuscular Volume 84, Mean Corpuscular Hemoglobin 27, Mean Corpuscular Hemoglobin Concent 33, Red Cell Distribution Width 13.7, Platelet Count 206, Mean Platelet Volume 8.8L, Immature Granulocyte % (Auto) 1, Neutrophils (%) (Auto) 64, Lymphocytes (%) (Auto) 24, Monocytes (%) (Auto) 8, Eosinophils (%) (Auto) 3, Basophils (%) (Auto) 1, Neutrophils # (Auto) 2.8, Lymphocytes # (Auto) 1.1, Monocytes # (Auto) 0.3, Eosinophils # (Auto) 0.1, Basophils # (Auto) 0.0, Immature Granulocyte # (Auto) 0.0, Sodium Level 141, Potassium Level 3.7, Chloride Level 109H, Carbon Dioxide Level 23, Anion Gap 9, Blood Urea Nitrogen 12, Creatinine 0.73, Estimat Glomerular Filtration Rate 84, BUN/Creatinine Ratio 16, Glucose Level 213H, Calcium Level 8.7, Corrected Calcium 9.3, Total Bilirubin 0.2, Aspartate Amino Transf (AST/SGOT) 10, Alanine Aminotransferase (ALT/SGPT) 15, Alkaline Phosphatase 72, Total Protein 5.7L, Albumin 3.3 12/20/21 10:46: Glucometer 224H 12/20/21 15:47: Glucometer 202H 12/20/21 20:35: Glucometer 225H 12/21/21 06:08: Glucometer 194H 12/21/21 10:57: Glucometer 218H Pending Labs Laboratory Tests 12/12/21 20:43: Glucometer 182 12/13/21 05:43: White Blood Count 3.8, Red Blood Count 3.66, Hemoglobin 10.2, Hematocrit 31, Mean Corpuscular Volume 85, Mean Corpuscular Hemoglobin 28, Mean Corpuscular Hemoglobin Concent 33, Red Cell Distribution Width 14.1, Platelet Count 231, Mean Platelet Volume 9.0, Immature Granulocyte % (Auto) 0, Neutrophils (%) (Auto) 59, Lymphocytes (%) (Auto) 29, Monocytes (%) (Auto) 8, Eosinophils (%) (Auto) 4, Basophils (%) (Auto) 1, Neutrophils # (Auto) 2.3, Lymphocytes # (Auto) 1.1, Monocytes # (Auto) 0.3, Eosinophils # (Auto) 0.1, Basophils # (Auto) 0.0, Immature Granulocyte # (Auto) 0.0, Sodium Level 142, Potassium Level 3.4, Chloride Level 109, Carbon Dioxide Level 21, Anion Gap 12, Blood Urea Nitrogen 7, Creatinine 0.72, Estimat Glomerular Filtration Rate 85, BUN/Creatinine Ratio 10, Glucose Level 188, Calcium Level 8.6, Corrected Calcium 9.1, Total Bilirubin 0.2, Aspartate Amino Transf (AST/SGOT) 10, Alanine Aminotransferase (ALT/SGPT) 1 9, Alkaline Phosphatase 58, Total Protein 5.8, Albumin 3.4 12/13/21 05:51: Glucometer 172 12/13/21 11:47: Glucometer 205 12/13/21 15:20: Glucometer 158 12/13/21 20:34: Glucometer 213 12/14/21 06:16: Glucometer 185 12/14/21 10:55: Glucometer 234 12/14/21 15:39: Glucometer 227 12/14/21 21:18: Glucometer 210 12/15/21 06:44: Glucometer 184 12/15/21 10:54: Glucometer 203 12/15/21 15:23: Glucometer 243 12/15/21 20:30: Glucometer 199 12/16/21 05:49: Glucometer 204 12/16/21 06:35: Sodium Level 140, Potassium Level 3.7, Chloride Level 109, Carbon Dioxide Level 19, Anion Gap 12, Blood Urea Nitrogen 10, Creatinine 0.74, Estimat Glomerular Filtration Rate 82, BUN/Creatinine Ratio 14, Glucose Level 212, Calcium Level 8.6, Corrected Calcium 9.2, Total Bilirubin 0.3, Aspartate Amino Transf (AST/SGOT) 14, Alanine Aminotransferase (ALT/SGPT) 17, Alkaline Phosphatase 62, Total Protein 5.7, Albumin 3.3 12/16/21 08:38: White Blood Count 4.6, Red Blood Count 3.93, Hemoglobin 10.8, Hematocrit 33, Mean Corpuscular Volume 83, Mean Corpuscular Hemoglobin 28, Mean Corpuscular Hemoglobin Concent 33, Red Cell Distribution Width 13.8, Platelet Count 238, Mean Platelet Volume 8.8, Immature Granulocyte % (Auto) 0, Neutrophils (%) (Auto) 64, Lymphocytes (%) (Auto) 24, Monocytes (%) (Auto) 7, Eosinophils (%) (Auto) 4, Basophils (%) (Auto) 1, Neutrophils # (Auto) 3.0, Lymphocytes # (Auto) 1.1, Monocytes # (Auto) 0.3, Eosinophils # (Auto) 0.2, Basophils # (Auto) 0.0, Immature Granulocyte # (Auto) 0.0 12/16/21 10:42: Glucometer 306 12/16/21 15:15: Glucometer 205 12/16/21 20:11: Glucometer 241 12/17/21 05:34: Glucometer 235 12/17/21 10:54: Glucometer 226 12/17/21 15:32: Glucometer 217 12/17/21 20:30: Glucometer 268 12/18/21 05:31: Glucometer 221 12/18/21 10:51: Glucometer 248 12/18/21 15:17: Glucometer 302 12/18/21 20:41: Glucometer 216 12/19/21 05:59: Glucometer 200 12/19/21 10:50: Glucometer 239 12/19/21 15:27: Glucometer 242 12/19/21 20:14: Glucometer 218 12/20/21 05:32: Glucometer 190 12/20/21 06:48: White Blood Count 4.4, Red Blood Count 3.75, Hemoglobin 10.2, Hematocrit 31, Mean Corpuscular Volume 84, Mean Corpuscular Hemoglobin 27, Mean Corpuscular Hemoglobin Concent 33, Red Cell Distribution Width 13.7, Platelet Count 206, Mean Platelet Volume 8.8, Immature Granulocyte % (Auto) 1, Neutrophils (%) (Auto) 64, Lymphocytes (%) (Auto) 24, Monocytes (%) (Auto) 8, Eosinophils (%) (Auto) 3, Basophils (%) (Auto) 1, Neutrophils # (Auto) 2.8, Lymphocytes # (Auto) 1.1, Monocytes # (Auto) 0.3, Eosinophils # (Auto) 0.1, Basophils # (Auto) 0.0, Immature Granulocyte # (Auto) 0.0, Sodium Level 141, Potassium Level 3.7, Chloride Level 109, Carbon Dioxide Level 23, Anion Gap 9, Blood Urea Nitrogen 12, Creatinine 0.73, Estimat Glomerular Filtration Rate 84, BUN/Creatinine Ratio 16, Glucose Level 213, Calcium Level 8.7, Corrected Calcium 9.3, Total Bilirubin 0.2, Aspartate Amino Transf (AST/SGOT) 10, Alanine Aminotransferase (ALT/SGPT) 1 5, Alkaline Phosphatase 72, Total Protein 5.7, Albumin 3.3 12/20/21 10:46: Glucometer 224 12/20/21 15:47: Glucometer 202 12/20/21 20:35: Glucometer 225 12/21/21 06:08: Glucometer 194 12/21/21 10:57: Glucometer 218 Discharge Home Medications: Active Scripts Active Pantoprazole Sodium 40 Mg Tablet.dr 40 Mg PO DAILY Sucralfate 1 Gram Tablet 1 Gm PO ACHS Olanzapine 2.5 Mg Tablet 5 Mg PO HS Amlodipine Besylate 5 Mg Tablet 5 Mg PO DAILY Lisinopril 20 Mg Tablet 20 Mg PO DAILY Reported Loperamide (Loperamide HCl) 2 Mg Capsule 2 Mg PO QID PRN Flonase Allergy Relief (Fluticasone Propionate) 50 Mcg/Actuation [place].susp 1-2 [place] NSEACH DAILY PRN Metformin HCl 1,000 Mg Tablet 1,000 Mg PO BID Calcium Carbonate 600 Mg Calcium (1500 Mg) Tablet 600 Mg PO DAILY Aspirin EC (Aspirin) 81 Mg Tablet.dr 81 Mg PO DAILY Memantine HCl 10 Mg Tablet 10 Mg PO BID Glimepiride 1 Mg Tablet 1 Mg PO BID Diphenhydramine HCl 25 Mg Capsule 25 Mg PO BID Fish Oil Blythe-3 Softgel (Blythe-3S/Dha/Epa/Fish Oil) 980 Mg-253 Mg-647 Mg-1,400 Mg Capsule.dr 1 Each PO BID Meclizine HCl 25 Mg Tablet 25 Mg PO BID Instructions to patient/family Please see electronic discharge instructions given to patient. Diagnosis/Problems Diagnosis/Problems (1) GI bleed (2) Colonic mass (3) Dementia Status: Acute (4) Generalized weakness Status: Acute (5) Hematemesis Status: Acute (6) Urinary tract infection Status: Acute (7) Weakness (8) Edema (9) Diarrhea (10) Diabetes Clinical Quality Measures DVT/VTE Risk/Contraindication: Contraindications-Pharm: Other *list below* Other: JAMES PALOMINO DO Dec 21, 2021 06:35
[2021-12-21 07:15] VITALS: BP 180/72
[2021-12-21] MEDS: GLIMEPIRIDE 1 MG (AMARYL) TAB PO SCH (08:05)
[2021-12-21] MEDS: SENNOSIDES 8.6 MG (SENOKOT) TAB PO SCH (08:05)
[2021-12-21] MEDS: DOCUSATE SODIUM 100 MG (COLACE) CAP PO SCH (08:05)
[2021-12-21] MEDS: lisINopril 20 MG (PRINIVIL) TABLET PO SCH (08:06)
[2021-12-21] MEDS: amLODIPine 5 MG (NORVASC) TAB PO SCH (08:06)
[2021-12-21] MEDS: MEMANTINE 10 MG (NAMENDA) TABLET PO SCH (08:06)
[2021-12-21] MEDS: polyethylene glycoL POWDER 17 GM (MIRALAX) PACK PO SCH (08:06)
[2021-12-21] MEDS: PANTOPRAZOLE 40 MG (PROTONIX) TAB PO SCH (08:06)
--- NOTE | 2021-12-23 14:24 | Therapy Team Discharge Summary ---
Therapy Discharge Summary Discharge Recommendations Date of Discharge Dec 21, 2021 at 12:00 Therapy D/C Recommendations: [facility] (TCU/NH) Physical Therapy Roll Left to Right (QC): 6 Sit to Lying (QC): 6 Lying to Sitting/Side of Bed(Q: 4 Sit to Stand (QC): 4 Chair/Auc-dt-Oeskz Xfer(QC): 4 Toilet Transfer (QC): 3 Car Transfer (QC): 4 Does the Patient Walk: Yes Mode of Locomotion: Walk Anticipated Mode of Locomotion: Walk Walk 10 feet (QC): 6 Walk 50 ft with 2 Turns(QC): 4 Walk 150 ft (QC): 4 Walking 10ft on uneven surface: 4 Distance: 250 feet Gait Assistive Device: FWW Does the Pt Use a Wheelchair: No Wheel 50 ft with 2 turns (QC): 9 Wheel 150 ft (QC): 9 #of Steps: 4 1 Step (curb) (QC): 4 4 Steps (QC): 3 12 Steps (QC): 88 Balance Sitting Static: Normal Balance Sitting Dynamic: Good Balance-Standing Static: Fair Picking up an Object (QC): 4 Occupational Therapy Pt admitted to ARU with GI bleed and weakness. At time of evaluation she was dependent for footwear (baseline), mod a for lower body dressing (baseline), upper body dressing, toileting, and bathing, CGA for oral care, and set up for eating. During her rehab stay, OT focused on strengthening, balance, sequencing, safety, cognition, problem solving, endurance, and UE rom in order to improve performance and independence in self cares and functional mobility. Pt made fair progress and met all of her oil heaterman goals except toileting as she required CGA for safety during clothing management. Pt has discharged from this facility and will be discharged from OT at this time. Decreased Activ Tolerance, Decreased Safety Aware, Decreased UE Strength, Edema, Impaired Cognition, Impaired Funct Balance, Impaired Self-Care Skills Eating (QC): 5 Oral Hygiene (QC): 6 Shower/Bathe Self (QC): 4 Upper Body Dressing (QC): 3 Lower Body Dressing (QC): 4 On/Off Footwear (QC): 2 Toileting Hygiene (QC): 4 PT Shrimp Pond Laborer Goals Shrimp Pond Laborer Goals PT Senior Living Goals Time Frame: Jan 04, 2022 Roll Left to Right (QC): 6 Sit to Lying (QC): 6 Lying-Sitting on Side/Bed(QC): 6 Sit to Stand (QC): 6 Chair/Vja-vq-Zghop Xfer(QC): 6 Car Transfer (QC): 6 Does the Patient Walk: Yes Walk 10 feet (QC): 6 (MET) Walk 10ft-Uneven Surface(QC): 6 Walk 50ft with 2 Turns (QC): 6 Walk 150 ft (QC): 6 Does the Pt use WC or Scooter?: No Wheel 50 feet with 2 turns (QC: 9 1 Step (curb) (QC): 6 4 Steps (QC): 6 12 Steps (QC): 4 Picking up an Object (QC): 6 OT Senior Living Goals Senior Living Goals Time Frame: Dec 25, 2021 Eating (QC): 5 (met) Oral Hygiene (QC): 6 (met) Shower/Bathe Self (QC): 4 (met) Upper Body Dressing (QC): 5 (set up for shirts, Min a for bra, (met)) Lower Body Dressing (QC): 3 (met) On/Off Footwear (QC): 2 (met) Toileting Hygiene (QC): 6 (not met, CGA for safety during clothing management) Toilet/Commode Transfer (QC): 6 Additional Goals: 1-Demonstrate ADL Tasks, 2-Verbalize Understanding, 3- ImproveStrength/Pat 1=Demonstrate adherence to instructed precautions during ADL tasks. 2=Patient will verbalize/demonstrate understanding of assistive devices/modifications for ADL. 3=Patient will improve strength/tolerance for activity to enable patient to perform ADL's. Speech Shrimp Pond Laborer Goals Shrimp Pond Laborer Goals 1. The patient will demonstrate improve cognitive linguistic skills for safe discharge to the least restrictive environment. NOT MET. The patient remains at baseline status with fluctuating cognitive skills (specifically memory, sequencing, and problem solving) secondary to known diagnosis of dementia. Time Frame: 10 days. Dayna Crandall OT Dec 23, 2021 14:24
--- NOTE | 2021-12-24 15:09 | Therapy Team Discharge Summary ---
Therapy Discharge Summary Discharge Recommendations Date of Discharge Dec 21, 2021 at 12:00 Therapy D/C Recommendations: Usp (TCU/NH) Physical Therapy Patient tolerated treatment fair, however is at baseline for PLOF. She requires frequent if not constant verbal cues for path, progression and obstacles. She has been educated numerous times on proper performance of the sitting into a chair safely, however still attempts to float to the chair, not squaring up her body, and not using her UEs to guide her descent. She was able to perform all bed mobility with SBA and all transfers with SBA. Patient ascends/descends 4 steps with min a and verbal cues for safety, progression, and performance. Patient unable to continue after 4 steps due to fatigue. Roll Left to Right (QC): 6 Sit to Lying (QC): 6 Lying to Sitting/Side of Bed(Q: 4 Sit to Stand (QC): 4 Chair/Psb-vc-Auqly Xfer(QC): 4 Toilet Transfer (QC): 4 Car Transfer (QC): 4 Does the Patient Walk: Yes Mode of Locomotion: Walk Anticipated Mode of Locomotion: Walk Walk 10 feet (QC): 6 Walk 50 ft with 2 Turns(QC): 4 Walk 150 ft (QC): 4 Walking 10ft on uneven surface: 4 Distance: 250 feet Gait Assistive Device: FWW Does the Pt Use a Wheelchair: No Wheel 50 ft with 2 turns (QC): 9 Wheel 150 ft (QC): 9 #of Steps: 4 1 Step (curb) (QC): 4 4 Steps (QC): 3 12 Steps (QC): 88 Balance Sitting Static: Normal Balance Sitting Dynamic: Good Balance-Standing Static: Fair Picking up an Object (QC): 4 Occupational Therapy Decreased Activ Tolerance, Decreased Safety Aware, Decreased UE Strength, Edema, Impaired Cognition, Impaired Funct Balance, Impaired Self-Care Skills Eating (QC): 5 Oral Hygiene (QC): 6 Shower/Bathe Self (QC): 4 Upper Body Dressing (QC): 3 Lower Body Dressing (QC): 4 On/Off Footwear (QC): 2 Toileting Hygiene (QC): 4 PT Heating Mechanic Goals Heating Mechanic Goals PT Heating Mechanic Goals Time Frame: Jan 04, 2022 Roll Left to Right (QC): 6 Sit to Lying (QC): 6 Lying-Sitting on Side/Bed(QC): 6 Sit to Stand (QC): 6 Chair/Zyj-om-Fygsv Xfer(QC): 6 Car Transfer (QC): 6 Does the Patient Walk: Yes Walk 10 feet (QC): 6 (MET) Walk 10ft-Uneven Surface(QC): 6 Walk 50ft with 2 Turns (QC): 6 Walk 150 ft (QC): 6 Does the Pt use WC or Scooter?: No Wheel 50 feet with 2 turns (QC: 9 1 Step (curb) (QC): 6 4 Steps (QC): 6 12 Steps (QC): 4 Picking up an Object (QC): 6 OT Heating Mechanic Goals Heating Mechanic Goals Time Frame: Dec 25, 2021 Eating (QC): 5 (met) Oral Hygiene (QC): 6 (met) Shower/Bathe Self (QC): 4 (met) Upper Body Dressing (QC): 5 (set up for shirts, Min a for bra, (met)) Lower Body Dressing (QC): 3 (met) On/Off Footwear (QC): 2 (met) Toileting Hygiene (QC): 6 (not met, CGA for safety during clothing management) Toilet/Commode Transfer (QC): 6 Additional Goals: 1-Demonstrate ADL Tasks, 2-Verbalize Understanding, 3- ImproveStrength/Pat 1=Demonstrate adherence to instructed precautions during ADL tasks. 2=Patient will verbalize/demonstrate understanding of assistive devices/modifications for ADL. 3=Patient will improve strength/tolerance for activity to enable patient to perform ADL's. Speech Penitentiary Goals Penitentiary Goals 1. The patient will demonstrate improve cognitive linguistic skills for safe di scharge to the least restrictive environment. NOT MET. The patient remains at baseline status with fluctuating cognitive skills (specifically memory, sequencing, and problem solving) secondary to known diagnosis of dementia. Time Frame: 10 days. MAUREEN DÍAZ PT Dec 24, 2021 15:09
== END 2021-12-21 12:00 | disposition home health service (06) | DRG 948 ==
PROVIDERS: ADMIT Internal Medicine; ATTEND Internal Medicine
DX: R53.81 Other malaise (principal); F05 Delirium due to known physiological condition; C18.4 Malignant neoplasm of transverse colon; R53.1 Weakness; R26.9 Unspecified abnormalities of gait and mobility; F03.90 Unspecified dementia, unspecified severity, without behavioral disturbance, psychotic disturbance, mood disturbance, and anxiety; D50.0 Iron deficiency anemia secondary to blood loss (chronic); Z66 Do not resuscitate; K25.9 Gastric ulcer, unspecified as acute or chronic, without hemorrhage or perforation; R33.9 Retention of urine, unspecified; Z91.81 History of falling; I10 Essential (primary) hypertension; E78.00 Pure hypercholesterolemia, unspecified; E11.9 Type 2 diabetes mellitus without complications; F41.9 Anxiety disorder, unspecified; F32.A Depression, unspecified; S06.9X0S Unspecified intracranial injury without loss of consciousness, sequela; Z87.891 Personal history of nicotine dependence; Z79.82 Long term (current) use of aspirin; Z79.84 Long term (current) use of oral hypoglycemic drugs; Z88.0 Allergy status to penicillin; Z88.2 Allergy status to sulfonamides
CPT/HCPCS: 36415; 80053; 82947; 85025

== ENCOUNTER 2021-12-24 05:31 | Outpatient (CLI) | payer MEDICARE ==
[~2021-12-24] VITALS: Ht 157.5 cm; Wt 93.0 kg
[~2021-12-24 05:31] MED LIST changes: +AMLO-250 PO; +OLAN2.5T27 PO; +PANT40TA52 PO; +SUCR1TAB PO
== END 2021-12-24 13:56 | disposition home or self-care (01) ==
LOC: PREOP 05:31
PROVIDERS: ATTEND Surgery
DX: Z01.818 Encounter for other preprocedural examination (principal)

== ENCOUNTER 2021-12-25 09:13 | Inpatient (IN) | payer MEDICARE ==
[~2021-12-25] VITALS: Ht 157 cm; Wt 98.5 kg
[2021-12-25] VITALS (20 sets, daily range): BP systolic 114–159; BP diastolic 46–88
[~2021-12-25 09:13] MED LIST changes: -METF500S5 PO; +METF500S7 PO
[2021-12-25] MEDS: LACTATED RINGERS 1,000 ML IV PRN ×3 (09:40→14:46)
[2021-12-25] MEDS ORDERED: metroNIDAZOLE 500MG/100ML IVPB 100 ML IV ONE (09:45)
[2021-12-25] MEDS ORDERED: CLINDAMYCIN 600 MG/50 ML IVPB 50 ML IV ONE ×2 (09:45→15:43)
--- NOTE | 2021-12-25 10:20 | Progress Note-Pre Operative ---
Pre-Operative Progress Note Date of Available H&P: Dec 23, 2021 Date H&P Reviewed: Dec 25, 2021 Time H&P Reviewed: 10:20 History & Physical: H&P Reviewed, Patient Examed, No changes noted Pre-Operative Diagnosis: adenocarcinoma colon KEERTHI ESPINOZA DO Dec 25, 2021 10:20
[2021-12-25] MEDS ORDERED: MIDAZOLAM 2 MG/2 ML (VERSED) VIAL ONE (10:41)
[2021-12-25] MEDS ORDERED: proPOfol 200 MG/20 ML (DIPRIVAN) VIAL IV ONE (10:41)
[2021-12-25] MEDS ORDERED: SEVOFLURANE (ULTANE) 15 ML INHAL SOLN ONE ×4 (10:41→16:08)
[2021-12-25] MEDS ORDERED: LIDOCAINE PF 2% 5 ML (XYLOCAINE) VIAL ONE (10:41)
[2021-12-25] MEDS ORDERED: ONDANSETRON 4 MG/2 ML (SDV) Z0FRAN ONE (10:41)
[2021-12-25] MEDS ORDERED: fentaNYL INJ 100 MCG/2 ML AMP ONE ×2 (10:41→13:23)
[2021-12-25] MEDS ORDERED: LIDOCAINE/EPI 2% 1:200,00 (XYLOCAINE) 20 ML VIAL ONE (11:28)
[2021-12-25] MEDS ORDERED: ROCURONIUM 50 MG/5 ML (ZEMURON) VIAL IV ONE ×2 (13:33→16:08)
[2021-12-25] MEDS ORDERED: PHENYLEPHRINE 100 MCG/ML 10 ML (ANESTHESIA) SYR ONE (13:50)
[2021-12-25] MEDS ORDERED: SUGAMMADEX 500 MG/5 ML VIAL (BRIDION) IV ONE (16:10)
[2021-12-25] MEDS ORDERED: GLYCOPYRROLATE 0.2 MG/ML (ROBINUL) 2 ML VIAL ONE (16:10)
[2021-12-25] MEDS ORDERED: morphine INJ 10 MG/ML 1ML (SYR OR VIAL) IVP ONE (17:00)
[2021-12-25] MEDS ORDERED: ONDANSETRON 4 MG/2 ML (SDV) Z0FRAN IVP PRN (17:00)
[2021-12-25] MEDS ORDERED: LACTATED RINGERS 1,000 ML BAG IV SCH (17:15)
[2021-12-25] MEDS ORDERED: morphine INJ 10 MG/ML 1ML (SYR OR VIAL) IVP PRN (17:15)
--- NOTE | 2021-12-25 17:17 | Progress Note-Post Operative ---
Post-Operative Progess Note Surgeon (s)/Predatory Animal Trapper (s) Surgeon KEERTHI ESPINOZA DO Predatory Animal Trapper: Pool Pre-Operative Diagnosis adenocarcinoma colon Post-Operative Diagnosis same Procedure & Operative Findings Date of Procedure 12/25/21 Procedure Performed/Findings lap hand assisted subtotal colectomy with ileorectal ansastamosis Anesthesia Type gen Estimated Blood Loss Estimated blood loss (mL): 100 mL Specimens/Packing Specimens Removed colon KEERTHI ESPINOZA DO Dec 25, 2021 17:17
[2021-12-25] MEDS: LACTATED RINGERS 1,000 ML IV SCH (19:00)
[2021-12-25] MEDS: morphine INJ 4 MG/ML 1 ML (VIAL/SYRINGE) IV PRN (19:55)
[2021-12-25] MEDS: CLINDAMYCIN 600 MG/50 ML IVPB 50 ML IV SCH (22:12)
[2021-12-25] MEDS: metroNIDAZOLE 500MG/100ML IVPB 100 ML IV SCH (22:12)
[2021-12-26] VITALS (20 sets, daily range): BP systolic 113–170; BP diastolic 51–111
[2021-12-26] MEDS ORDERED: inSUlin ASPART (NovoLOG) 1 UNIT/0.01 ML (CHARGE PER UNIT) ONE (00:32)
[2021-12-26] MEDS: LACTATED RINGERS 1,000 ML IV SCH ×2 (03:06→11:00)
[2021-12-26] MEDS: morphine INJ 4 MG/ML 1 ML (VIAL/SYRINGE) IV PRN ×3 (03:06→22:00)
[2021-12-26] MEDS: metroNIDAZOLE 500MG/100ML IVPB 100 ML IV SCH (05:03)
[2021-12-26] MEDS ORDERED: inSUlin ASPART (NovoLOG) 1 UNIT/0.01 ML (CHARGE PER UNIT) SQ SCH ×2 (06:00)
--- NOTE | 2021-12-26 06:01 | OPERATIVE REPORT ---
DATE OF SERVICE: 12/25/2021 PREOPERATIVE DIAGNOSIS: Adenocarcinoma of colon. POSTOPERATIVE DIAGNOSIS: Adenocarcinoma of colon. PROCEDURE: Laparoscopic hand-assisted subtotal colectomy with ileorectal anastomosis. SURGEON: Keerthi Parks DO NETWORK INFRASTRUCTURE ARCHITECT: Dr. Lanza, assisted in retraction, dissection and closure and anastomosis. INDICATIONS: The patient is a 81-year-old female who has had a colonoscopy due to anemia, which was found to have masses in the rectal/rectal sigmoid area and also a mass near the splenic flexure. The splenic flexure mass was confirmed to be invasive adenocarcinoma of the rectal area, was suggestive of but not proven. Discussed with family and also with oncology and wished to proceed with a colon resection. All risks and benefits were discussed. Consent was signed in the chart. DESCRIPTION OF PROCEDURE: The patient was taken to the operating suite. She was prepped and draped in sterile fashion. Timeout was performed. Midline incision for hand port was made around the umbilicus. Cautery was used to dissect down through subcutaneous tissue and divide the fascia. A 12 mm trocar was placed under direct visualization in the right lower quadrant. Abdomen was then insufflated and a 5 mm trocar was placed in left abdomen. The tattooing was visualized down the renal pelvis, which was in the distal rectum. The other tattoo was in the transverse colon. Spatula cautery was then used to start to mobilize the left colon along the white line of Toldt. Distally, we dissected around the rectum for an area that the stapler could be fired across in order to remove distal to the tumor. We continued to mobilize the colon towards more of a midline structure. Once we were able to mobilize the transverse colon was divided proximal to the tattoo lola and the LigaSure was used to begin dividing the mesentery until the left colon was removed. We would continue to mobilize the right colon all the way down to the ligament of Treitz to make it to where we could do any colonic anastomosis; however, we were unable to get enough length. We continued to try different techniques in order to get further length of the right colon, but was unsuccessful in obtaining enough length. Therefore, we decided to create an ileorectal anastomosis. The remainder of the right colon was removed using the LigaSure. The small bowel was then brought up and a 25 EEA was used. The anvil was placed in the small bowel was then brought out through the colon. The stapler was used to close off the whole of the small bowel that we created. Dr. Lanza went below and dilated the rectum and also visualize the staple line of the rectum. He inserted the stapler and then brought out the stapler. The anvil was then attached to the stapler and this was then fired. The pelvis was then filled up with fluid and an air leak test was performed demonstrating no leak. The abdomen was then washed and irrigated. No other pathology noted. The midline hand port incision was then closed using 1-0 looped PDS. The abdomen was then reinspected again. No other pathology noted. The abdomen was then desufflated. All the trocars were removed. The skin was then closed with priti and the abdomen was washed and dried and sterile bandages were applied. The patient tolerated the procedure well. She was taken to the recovery room in stable condition. Job ID: [id number] DocumentID: [id number] Dictated Date: 12/25/2021 20:58:57 Cultural Historian Date: 12/26/2021 06:00:40 Dictated By: KEERTHI PARKS DO
[2021-12-26] MEDS: CLINDAMYCIN 600 MG/50 ML IVPB 50 ML IV SCH (06:06)
--- NOTE | 2021-12-26 06:08 | Diagnostic Imaging Report ---
INDICATION: 81-year-old female NG tube placed, assess tip position. COMPARISONS: None FINDINGS: Cardiac contour is normal. There is a slightly chronically elevated right hemidiaphragm. There are some coarse interstitial opacities in the lower lobes but no confluent consolidations. An NG tube is seen with the distal tip in the stomach with the side-port near the GE junction. Soft tissues and bony thorax are otherwise grossly normal. IMPRESSION: 1. NG tube is noted with the distal tip in the gastric body with the side-port near the GE junction. 2. Slight chronic elevation of the right hemidiaphragm. 2. Coarse interstitial opacities in both lower lobes noted suggesting discoid type atelectatic infiltrates. Dictated by: Dictated on workstation # [id number]
[2021-12-26] MEDS: inSUlin ASPART (NovoLOG) 1 UNIT/0.01 ML (CHARGE PER UNIT) SQ SCH ×3 (06:17→18:00)
[2021-12-26 06:23] LABS: HEMATOCRIT 30 % (35-52); HEMOGLOBIN 9.8 g/dL (11.5-16.0); MEAN CORPUSCULAR HEMOGLOBIN 27 pg (25-34); MEAN CORPUSCULAR HGB CONC 33 g/dL (32-36); MEAN CORPUSCULAR VOLUME 83 fL (80-99); MEAN PLATELET VOLUME 9.1 fL (9.0-12.2); PLATELET COUNT 235 10^3/uL (130-400); WHITE BLOOD COUNT 9.3 10^3/uL (4.3-11.0)
[2021-12-26 06:35] LABS: POTASSIUM 3.8 MMOL/L (3.6-5.0)
[2021-12-26 06:36] LABS: CALCIUM 8.3 MG/DL (8.5-10.1)
[2021-12-26 06:40] LABS: CREATININE SERUM 0.74 MG/DL (0.60-1.30)
[2021-12-26 06:42] LABS: MAGNESIUM 1.4 MG/DL (1.6-2.4)
[2021-12-26] MEDS ORDERED: NS IV 500 ML 500 ML IV PRN ×2 (07:00→15:45)
--- NOTE | 2021-12-26 08:20 | Anesthesia-General Post-Op ---
General Patient Condition Mental Status/LOC: Same as Preop Cardiovascular: Satisfactory Nausea/Vomiting: Absent Respiratory: Satisfactory Pain: Controlled Complications: Absent Post Op Complications Complications None Follow Up Care/Instructions Patient Instructions None needed. Anesthesia/Patient Condition Patient Condition Patient is doing well, no complaints, stable vital signs, no apparent adverse anesthesia problems. No complications reported per nursing. D/C home per [facility] [place] Criteria: HARMAN Sagastume CRNA Dec 26, 2021 08:20
[2021-12-26] MEDS: RT-ALBUTEROL/IPRATROPIUM 3 ML (DUONEB) VIAL INH SCH ×3 (10:41→20:14)
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
--- NOTE | 2021-12-26 15:38 | Progress Note - Surgery ---
Subjective Date Seen by a Provider: Dec 26, 2021 Time Seen by a Provider: 07:25 Subjective/Events-last exam No pain. Passed a little flatus. No bm. Urine output a little low, has hoffman. Ng tube in place. Denies n/v fever sweats chills shortness of breath or chest pain. Not using IS. Objective Exam Vital Signs Date Time Temp Pulse Resp B/P (MAP) Pulse Ox O2 Delivery O2 Flow Rate FiO2 12/26/21 15:28 95 OxyMask 5.00 12/26/21 13:00 105 18 150/67 (94) 97 OxyMask 4.00 12/26/21 13:00 105 12/26/21 12:00 101 16 145/65 (91) 99 OxyMask 4.00 12/26/21 11:34 36.9 12/26/21 11:00 101 34 137/59 (85) 99 OxyMask 4.00 12/26/21 10:41 96 OxyMask 6.00 12/26/21 10:00 98 34 118/51 (73) 99 OxyMask 6.00 12/26/21 09:00 101 26 113/51 (71) 97 OxyMask 6.00 12/26/21 08:00 103 21 124/63 (83) 97 OxyMask 6.00 12/26/21 08:00 94 OxyMask 7.00 12/26/21 07:52 36.3 12/26/21 07:17 105 12/26/21 07:00 108 14 126/55 (78) 97 OxyMask 6.00 12/26/21 06:00 111 131/51 (76) 94 OxyMask 6.00 12/26/21 05:00 112 145/63 (90) 99 OxyMask 6.00 12/26/21 04:39 36.5 12/26/21 04:00 112 11 144/51 (93) 91 OxyMask 6.00 12/26/21 04:00 94 OxyMask 7.00 12/26/21 03:00 105 28 139/69 (107) 98 OxyMask 6.00 12/26/21 02:37 93 Room Air 12/26/21 02:00 113 22 157/69 (109) 88 OxyMask 6.00 12/26/21 01:00 109 28 151/60 (109) 95 OxyMask 6.00 12/26/21 01:00 109 12/26/21 00:00 95 OxyMask 7.00 12/26/21 00:00 109 16 150/65 (86) 85 OxyMask 6.00 12/25/21 23:00 112 18 156/62 (98) 95 OxyMask 6.00 12/25/21 22:09 95 Nasal Cannula 6.00 12/25/21 22:00 107 12 152/80 (95) 96 OxyMask 6.00 12/25/21 21:00 102 15 154/73 (113) 97 OxyMask 6.00 12/25/21 20:27 36.1 89 94 12/25/21 20:15 94 Simple Mask 6.00 12/25/21 20:00 99 17 133/65 (78) 94 OxyMask 6.00 12/25/21 20:00 92 OxyMask 6.00 12/25/21 19:00 92 12/25/21 19:00 92 18 132/51 (78) 96 OxyMask 6.00 12/25/21 18:32 89 21 99 75.00 30.00 12/25/21 18:30 85 12/25/21 18:20 36.1 22 114/56 (75) 100 NIV CPAP 12/25/21 18:10 24 136/68 (90) 99 NIV CPAP 12/25/21 18:00 22 144/62 (89) 99 NIV CPAP 10.00 12/25/21 18:00 OxyMask 10.00 12/25/21 17:50 20 141/66 (91) 91 Ambu Bag 10.00 12/25/21 17:40 20 151/66 (94) 84 OxyMask 10.00 12/25/21 17:30 36.1 22 135/88 (104) 91 OxyMask 10.00 12/25/21 17:30 OxyMask 10.00 12/25/21 17:20 22 125/59 (81) 93 OxyMask 10.00 12/25/21 17:10 22 140/52 (81) 95 OxyMask 10.00 12/25/21 17:00 24 159/55 (89) 96 OxyMask 10.00 12/25/21 17:00 OxyMask 10.00 12/25/21 16:50 21 124/56 (78) 95 OxyMask 10.00 12/25/21 16:40 23 115/46 (69) 96 OxyMask 10.00 12/25/21 16:30 36.1 20 127/52 (77) 93 OxyMask 10.00 12/25/21 16:30 OxyMask 10.00 I & O 12/26/21 07:00 Intake Total 3450 ml Output Total 1225 ml Balance 2225 ml Capillary Refill : General Appearance: No Apparent Distress, Obese HEENT: PERRL/EOMI, Other Neck: Non Tender, Supple Respiratory: Lungs Clear, Normal Breath Sounds, No Accessory Muscle Use, No Respiratory Distress Cardiovascular: Regular Rate, Rhythm, No Murmur Gastrointestinal: soft, tenderness (minimal, incisions c/d/i no signs of infection.) Extremity: Normal Capillary Refill, No Calf Tenderness, No Pedal Edema Neurologic/Psychiatric: Alert, Oriented x3, Normal Mood/Affect Skin: Normal Color, Warm/Dry, Other Lymphatic: No Adenopathy Results Lab Laboratory Tests 12/25/21 23:30: Glucometer 387H 12/26/21 06:07: Glucometer 211H 12/26/21 06:21: White Blood Count 9.3, Red Blood Count 3.62L, Hemoglobin 9.8L, Hematocrit 30L, Mean Corpuscular Volume 83, Mean Corpuscular Hemoglobin 27, Mean Corpuscular Hemoglobin Concent 33, Red Cell Distribution Width 13.6, Platelet Count 235, Mean Platelet Volume 9.1, Sodium Level 140, Potassium Level 3.8, Chloride Level 109H, Carbon Dioxide Level 23, Anion Gap 8, Blood Urea Nitrogen 11, Creatinine 0.74, Estimat Glomerular Filtration Rate 82, BUN/Creatinine Ratio 15, Glucose Level 234H, Calcium Level 8.3L, Magnesium Level 1.4L 12/26/21 11:39: Glucometer 144H Microbiology 12/25/21 MRSA Screen - Final, Complete MRSA not isolated Assessment/Plan Assessment/Plan Assessment/Plan s/p subtotal colectomy with ileorectal anastamosis pod 1 invasive adenocarcinoma colon obesity iv fluids hoffman for accurate i/o repeat labs in am clamp ng tube ambulate incentive spirometer PT KEERTHI ESPINOZA DO Dec 26, 2021 15:38
[2021-12-26] MEDS ORDERED: NS IV 500 ML 500 ML IV STA (15:41)
--- NOTE | 2021-12-26 18:30 | Diagnostic Imaging Report ---
INDICATION: Line placement. EXAMINATION: Chest from 12/26/2021. COMPARISON: 12/26/2021 at 04:18 a.m. FINDINGS: There is bibasilar atelectasis, right greater than left. Early infiltrate at the right lung base is not excluded. Elevation of the right hemidiaphragm is noted. Heart and pulmonary vasculature are normal. Right central line tip ends in the SVC. No pneumothorax. IMPRESSION: 1. Right central line tip in the SVC. 2. Right base atelectasis versus mild infiltrate. Dictated by: Dictated on workstation # [id number]
[2021-12-26] MEDS ORDERED: HALOPERIDOL 5 MG/ML (HALDOL) VIAL IM PRN (20:45)
[2021-12-27] VITALS (23 sets, daily range): BP systolic 115–183; BP diastolic 52–87
[2021-12-27] MEDS: inSUlin ASPART (NovoLOG) 1 UNIT/0.01 ML (CHARGE PER UNIT) SQ SCH ×3 (01:02→11:57)
[2021-12-27] MEDS: LACTATED RINGERS 1,000 ML IV SCH ×3 (01:06→11:59)
[2021-12-27] MEDS: RT-ALBUTEROL/IPRATROPIUM 3 ML (DUONEB) VIAL INH SCH ×4 (03:33→20:44)
--- NOTE | 2021-12-27 03:35 | OPERATIVE REPORT ---
DATE OF SERVICE: 12/26/2021 PREOPERATIVE DIAGNOSIS: Poor venous access. POSTOPERATIVE DIAGNOSIS: Poor venous access. PROCEDURE: Ultrasound-guided right internal jugular vein central line placement. SURGEON: Keerthi Parks DO. ANESTHESIA: 1% lidocaine 3 mL. COMPLICATIONS: None. INDICATIONS: The patient is a 81-year-old female, who had a subtotal colectomy. She has poor venous access and needing better access. Risks and benefits were discussed and consent was obtained for central line placement. DESCRIPTION OF PROCEDURE: The patient was prepped and draped in sterile fashion. Timeout was performed. Using ultrasound, the right internal jugular vein was visualized. Local anesthetic was infiltrated. The right internal jugular vein was then accessed using ultrasound guidance. Dark nonpulsatile blood was withdrawn. The wire was inserted and the needle was removed. An 11 blade scalpel was used to make a small skin incision at the insertion point. Dilator was then advanced over the wire and removed. The catheter was advanced and the wire was removed. All ports were accessed and flushed without difficulty. It was secured in the usual fashion. The area was washed and dried and sterile bandage was applied. The patient tolerated the procedure well without any complications. Chest x-ray pending. Job ID: [id number] DocumentID: [id number] Dictated Date: 12/26/2021 17:53:05 Yacht Builder Date: 12/27/2021 03:33:21 Dictated By: KEERTHI PARKS DO
[2021-12-27 04:24] LABS: BASOPHILS % (AUTO) 0 % (0-10); EOSINOPHILS % (AUTO) 0 % (0-10); HEMATOCRIT 29 % (35-52); LYMPHOCYTES # (AUTO) 1.1 10^3/uL (1.0-4.0); LYMPHOCYTES % (AUTO) 12 % (12-44); MEAN CORPUSCULAR HEMOGLOBIN 26 pg (25-34); MEAN CORPUSCULAR HGB CONC 32 g/dL (32-36); MEAN CORPUSCULAR VOLUME 84 fL (80-99); MEAN PLATELET VOLUME 9.1 fL (9.0-12.2); MONOCYTES # (AUTO) 0.7 10^3/uL (0.0-1.0); MONOCYTES % (AUTO) 7 % (0-12); NEUTROPHILS # (AUTO) 7.9 10^3/uL (1.8-7.8); NEUTROPHILS % (AUTO) 81 % (42-75); PLATELET COUNT 228 10^3/uL (130-400); WHITE BLOOD COUNT 9.8 10^3/uL (4.3-11.0)
[2021-12-27 04:32] LABS: ALBUMIN 2.8 GM/DL (3.2-4.5)
[2021-12-27 04:33] LABS: POTASSIUM 3.4 MMOL/L (3.6-5.0)
[2021-12-27 04:34] LABS: CALCIUM 8.4 MG/DL (8.5-10.1)
[2021-12-27 04:35] LABS: TOTAL PROTEIN 4.8 GM/DL (6.4-8.2)
[2021-12-27 04:37] LABS: BILIRUBIN,TOTAL 0.2 MG/DL (0.1-1.0)
[2021-12-27 04:39] LABS: CREATININE SERUM 0.66 MG/DL (0.60-1.30)
[2021-12-27] MEDS: morphine INJ 4 MG/ML 1 ML (VIAL/SYRINGE) IV PRN ×4 (05:16→22:25)
[2021-12-27] MEDS ORDERED: POTASSIUM CL 10MEQ/50ML IVPB 50 ML IV SCH (06:00)
[2021-12-27] MEDS ORDERED: MAGNESIUM 1 GM/100 ML IVPB 100 ML IV SCH (06:00)
[2021-12-27] MEDS ORDERED: KCL 20 MEQ TAB (K-DUR) PO SCH (06:00)
[2021-12-27] MEDS: KCL 20 MEQ TAB (K-DUR) PO SCH (06:21)
[2021-12-27] MEDS: MAGNESIUM 1 GM/100 ML IVPB 100 ML IV SCH ×3 (06:21→19:32)
[2021-12-27] MEDS: POTASSIUM CL 10MEQ/50ML IVPB 50 ML IV SCH ×5 (07:00→09:45)
--- NOTE | 2021-12-27 07:46 | Tele-ICU Progress Note ---
Subjective Date Seen by a Provider: Dec 27, 2021 Time Seen by a Provider: 07:41 Subjective/Events-last exam s/p subtotal colectomy with ilio-rectal anastomosis d3 VS ok with SpO2 97% on 3 lpm NC Off abx, WBC 9.8, Hb stable I reviewed CXR from 12/26, looks ok after line placement Sepsis Event Evaluation Height, Weight, BMI Height: '" Weight: lbs. oz. kg; 36.75 BMI Method: Exam Exam Patient acknowledged, consented, and participated in this virtual visit which was conducted using real time audio/video Vital Signs Date Time Temp Pulse Resp B/P (MAP) Pulse Ox O2 Delivery O2 Flow Rate FiO2 12/27/21 07:12 99 Nasal Cannula 3.00 12/27/21 06:00 111 10 166/70 (121) 94 OxyMask 4.00 12/27/21 05:00 115 18 160/53 (88) 94 OxyMask 4.00 12/27/21 04:00 113 142/60 (92) 96 OxyMask 4.00 12/27/21 03:33 97 OxyMask 3.00 12/27/21 03:00 112 32 138/73 (85) 97 OxyMask 4.00 12/27/21 02:00 112 21 145/60 (97) 96 OxyMask 4.00 12/27/21 01:00 112 12/27/21 01:00 112 156/67 (116) 96 OxyMask 4.00 12/27/21 00:00 115 17 148/66 (85) 97 OxyMask 4.00 12/27/21 00:00 94 OxyMask 3.00 12/26/21 23:00 112 26 154/111 (124) 97 OxyMask 4.00 12/26/21 22:00 115 23 144/65 (94) 94 OxyMask 4.00 12/26/21 21:00 121 20 132/64 (78) 95 OxyMask 4.00 12/26/21 20:13 94 OxyMask 5.00 12/26/21 20:00 118 19 170/68 (93) 95 OxyMask 4.00 12/26/21 20:00 94 OxyMask 7.00 12/26/21 19:00 115 12/26/21 19:00 115 25 158/68 (95) 95 OxyMask 4.00 12/26/21 18:00 114 16 94 OxyMask 4.00 12/26/21 16:00 110 20 152/58 (89) 95 OxyMask 4.00 12/26/21 16:00 94 OxyMask 7.00 12/26/21 15:28 95 OxyMask 5.00 12/26/21 13:00 105 18 150/67 (94) 97 OxyMask 4.00 12/26/21 13:00 105 12/26/21 12:00 101 16 145/65 (91) 99 OxyMask 4.00 12/26/21 12:00 94 OxyMask 7.00 12/26/21 11:34 36.9 12/26/21 11:00 101 34 137/59 (85) 99 OxyMask 4.00 12/26/21 10:41 96 OxyMask 6.00 12/26/21 10:00 98 34 118/51 (73) 99 OxyMask 6.00 12/26/21 09:00 101 26 113/51 (71) 97 OxyMask 6.00 12/26/21 08:00 103 21 124/63 (83) 97 OxyMask 6.00 12/26/21 08:00 94 OxyMask 7.00 12/26/21 07:52 36.3 I & O 12/27/21 07:00 Intake Total 0 ml Output Total 1050 ml Balance -1050 ml Height & Weight Height: '" Weight: lbs. oz. kg; 36.75 BMI Method: General Appearance: No Apparent Distress, WD/WN, Chronically ill HEENT: PERRL/EOMI, Other Neck: Non Tender, Supple Respiratory: Lungs Clear, Normal Breath Sounds Cardiovascular: Regular Rate, Rhythm Gastrointestinal: normal bowel sounds, soft, tenderness (minimal, incisions c/d/i no signs of infection.) Extremity: Normal Capillary Refill, No Calf Tenderness, No Pedal Edema, Pedal Edema, Other (mild tenderness 3/10 generalized) Neurologic/Psychiatric: Alert, Oriented x3 Skin: Normal Color, Warm/Dry, Other Lymphatic: No Adenopathy Results Lab Laboratory Tests 12/26/21 06:21 12/27/21 04:15 Assessment/Plan Assessment/Plan s/p subtotal colectomy for colon Ca, doing ok, will continue on same plan, may be able to go to Med Surg floor. Magnesium yesterday was 1.4, will check today Critical Care: Critically Ill Patient Time spent with patient (mins): 25 JUDI MG MD Dec 27, 2021 07:46
--- NOTE | 2021-12-27 07:54 | Progress Note - Surgery ---
DARREN SILVA 12/27/21 0754: Subjective Date Seen by a Provider: Dec 27, 2021 Time Seen by a Provider: 07:52 Subjective/Events-last exam Pt is awake and alert sitting in her chair. Patient reports feeling well overall. Patient states that they have not been passing gas and have not yet used their incentive spirometer. Review of Systems General: No Chills, No Night Sweats HEENT: No Head Aches, No Visual Changes Pulmonary: No Dyspnea, No Cough Cardiovascular: No: Chest Pain, Palpitations, Orthopnea Gastrointestinal: No: Nausea, Vomiting Genitourinary: No Dysuria, No Hematuria Musculoskeletal: No: neck pain, shoulder pain Neurological: No: Numbness, Change in speech Objective Exam Vital Signs Date Time Temp Pulse Resp B/P (MAP) Pulse Ox O2 Delivery O2 Flow Rate FiO2 12/27/21 07:12 99 Nasal Cannula 3.00 12/27/21 06:00 111 10 166/70 (121) 94 OxyMask 4.00 12/27/21 05:00 115 18 160/53 (88) 94 OxyMask 4.00 12/27/21 04:00 94 OxyMask 3.00 12/27/21 04:00 113 142/60 (92) 96 OxyMask 4.00 12/27/21 03:33 97 OxyMask 3.00 12/27/21 03:00 112 32 138/73 (85) 97 OxyMask 4.00 12/27/21 02:00 112 21 145/60 (97) 96 OxyMask 4.00 12/27/21 01:00 112 12/27/21 01:00 112 156/67 (116) 96 OxyMask 4.00 12/27/21 00:00 115 17 148/66 (85) 97 OxyMask 4.00 12/27/21 00:00 94 OxyMask 3.00 12/26/21 23:00 112 26 154/111 (124) 97 OxyMask 4.00 12/26/21 22:00 115 23 144/65 (94) 94 OxyMask 4.00 12/26/21 21:00 121 20 132/64 (78) 95 OxyMask 4.00 12/26/21 20:13 94 OxyMask 5.00 12/26/21 20:00 118 19 170/68 (93) 95 OxyMask 4.00 12/26/21 20:00 94 OxyMask 7.00 12/26/21 19:00 115 12/26/21 19:00 115 25 158/68 (95) 95 OxyMask 4.00 12/26/21 18:00 114 16 94 OxyMask 4.00 12/26/21 16:00 110 20 152/58 (89) 95 OxyMask 4.00 12/26/21 16:00 94 OxyMask 7.00 12/26/21 15:28 95 OxyMask 5.00 12/26/21 13:00 105 18 150/67 (94) 97 OxyMask 4.00 12/26/21 13:00 105 12/26/21 12:00 101 16 145/65 (91) 99 OxyMask 4.00 12/26/21 12:00 94 OxyMask 7.00 12/26/21 11:34 36.9 12/26/21 11:00 101 34 137/59 (85) 99 OxyMask 4.00 12/26/21 10:41 96 OxyMask 6.00 12/26/21 10:00 98 34 118/51 (73) 99 OxyMask 6.00 12/26/21 09:00 101 26 113/51 (71) 97 OxyMask 6.00 12/26/21 08:00 103 21 124/63 (83) 97 OxyMask 6.00 12/26/21 08:00 94 OxyMask 7.00 I & O 12/27/21 07:00 Intake Total 0 ml Output Total 1450 ml Balance -1450 ml Capillary Refill : General Appearance: No Apparent Distress, WD/WN, Chronically ill HEENT: PERRL/EOMI, Other Neck: Non Tender, Supple Respiratory: Lungs Clear, Normal Breath Sounds Cardiovascular: Regular Rate, Rhythm Gastrointestinal: soft, tenderness (minimal, incisions c/d/i no signs of infection.) Extremity: Normal Capillary Refill, No Calf Tenderness, No Pedal Edema Neurologic/Psychiatric: Alert, Oriented x3 Skin: Normal Color, Warm/Dry, Other Lymphatic: No Adenopathy Results Lab Laboratory Tests 12/26/21 11:39: Glucometer 144H 12/26/21 18:53: Glucometer 173H 12/27/21 00:59: Glucometer 204H 12/27/21 04:15: White Blood Count 9.8, Red Blood Count 3.41L, Hemoglobin 9.0L, Hematocrit 29L, Mean Corpuscular Volume 84, Mean Corpuscular Hemoglobin 26, Mean Corpuscular Hemoglobin Concent 32, Red Cell Distribution Width 14.0, Platelet Count 228, Mean Platelet Volume 9.1, Immature Granulocyte % (Auto) 0, Neutrophils (%) (Auto) 81H, Lymphocytes (%) (Auto) 12, Monocytes (%) (Auto) 7, Eosinophils (%) (Auto) 0, Basophils (%) (Auto) 0, Neutrophils # (Auto) 7.9H, Lymphocytes # (Auto) 1.1, Monocytes # (Auto) 0.7, Eosinophils # (Auto) 0.0, Basophils # (Auto) 0.0, Immature Granulocyte # (Auto) 0.0, Sodium Level 141, Potassium Level 3.4L, Chloride Level 110H, Carbon Dioxide Level 22, Anion Gap 9, Blood Urea Nitrogen 11, Creatinine 0.66, Estimat Glomerular Filtration Rate 89, BUN/Creatinine Ratio 17, Glucose Level 164H, Calcium Level 8.4L, Corrected Calcium 9.4, Total Bilirubin 0.2, Aspartate Amino Transf (AST/SGOT) 12, Alanine Aminotransferase (ALT/SGPT) 18, Alkaline Phosphatase 58, Total Protein 4.8L, Albumin 2.8L Microbiology 12/25/21 MRSA Screen - Final, Complete MRSA not isolated Assessment/Plan Assessment/Plan Assessment/Plan s/p subtotal colectomy with ileorectal anastamosis pod 1 invasive adenocarcinoma colon obesity iv fluids hoffman for accurate i/o clamp ng tube ambulate incentive spirometer PT KEERTHI PARKS DO 12/27/212126: Subjective Subjective/Events-last exam Pain controlled. Having some flatus. Urine output improved. Not using IS. Up to chair. Denies n/v fever sweats chills shortness of breath or chest pain. Objective Exam General Appearance: No Apparent Distress, Chronically ill, Obese HEENT: PERRL/EOMI, Normal ENT Inspection Neck: Non Tender, Supple Respiratory: Chest Non Tender, No Accessory Muscle Use, No Respiratory Distress Cardiovascular: No JVD, Tachycardia Gastrointestinal: soft, tenderness (minimal, incisions c/d/i no signs of infection.) Extremity: Normal Capillary Refill, No Calf Tenderness Neurologic/Psychiatric: Alert, Normal Mood/Affect Skin: Normal Color, Warm/Dry Lymphatic: No Adenopathy Assessment/Plan Assessment/Plan Assessment/Plan s/p subtotal colectomy with ileorectal anastamosis pod 2 invasive adenocarcinoma colon obesity iv fluids hoffman remove remove ng start clears lovenox for dvt prophylaxis ambulate incentive spirometer PT Protonix 40mg daily repeat labs in am Supervisory-Addendum Brief Verification & Attestation Participated in pt care: history, MDM, physical Personally performed: exam, history, MDM, supervision of care Care discussed with: Medical Student Procedures: n/a Results interpretation: Verified all documentation Verification and Attestation of Medical Student E/M Service A medical student performed and documented this service in my presence. I review ed and verified all information documented by the medical student and made modifications to such information, when appropriate. I personally performed the physical exam and medical decision making. Keerthi Parks Dec 27, 2021,21:27 DARREN SILVA Dec 27, 2021 07:54 KEERTHI PARKS DO Dec 27, 2021 21:27
--- NOTE | 2021-12-27 09:39 | Physical Therapy Evaluation ---
PT Evaluation-General Medical Diagnosis Admission Date Dec 25, 2021 at 09:13 Medical Diagnosis: colon cancer Onset Date: Dec 25, 2021 Therapy Diagnosis Therapy Diagnosis: generalized weakness/debility Precautions Precautions/Isolations: Standard Precautions Weight Bear Status Right Lower Extremity: Right Weight Bearing/Tolerated Left Lower Extremity: Left Weight Bearing/Tolerated Referral Physician: Kasey Reason for Referral: Evaluation/Treatment Medical History Pertinent Medical History: DM, Dementia, HTN, TBI Current History s/p colon resection due to cancer Reviewed History: Yes Social History Home: Single Level Current Living Status: Spouse Prior Prior Level of Function SCALE: Activities may be completed with or without assistive devices. 3-Wooqmyuswt-lhpmlxa completes the activity by him/herself with no assistance f rom a helper. 5-Set-up or Clean-up Assistance-helper sets up or cleans up; patient completes activity. [place] assists only prior to or following the activity. 4-Supervision or Touching Assistance-helper provides verbal cues and/or touching/steadying and/or contact guard assistance as patient completes activity. Assistance may be provided throughout the activity or intermittently. 3-Partial/Moderate Assistance-helper does LESS THAN HALF the effort. [place] lifts, holds or supports trunk or limbs, but provides less than half the effort. 2-Substantial/Maximal Assistance-helper does MORE THAN HALF the effort. [place] lifts or holds trunk or limbs and provides more than half the effort. 1-Rwlvkmvil-ieixkr does ALL the effort. Patient does none of the effort to complete the activity. Or, the assistance of 2 or more helpers is required for the patient to complete the activity. If activity was not attempted, code reason: 7-Patient Refused. 9-Not Applicable-not attempted and the patient did not perform the activity before the current illness, exacerbation or injury. 10-Not Attempted due to Environmental Limitations-(lack of equipment, weather restraints, etc.). 88-Not Attempted due to Medical Conditions or Safety Concerns. Bed Mobility: 4 Transfers (B,C,W/C): 4 Gait: 4 Indoor Mobility (Ambulation): Needed Some Help Prior Devices Use: Walker PT Evaluation-Current Subjective Patient c/o 10/10 abdominal pain with RN present to issue pain medication. Patient reluctantly agrees to PT. Pain Numeric Pain Scale: 10-Worst Possible Pain Location: Medial, Lower Location Body Site: Abdomen Pain Description: Pressure, Acute Objective Patient Orientation: Normal For Age Attachments: NG Tube, Oxygen, Benítez Catheter, IV ROM/Strength ROM Lower Extremities bilateral LE WFL Strength Lower Extremities 3/5 grossly bilateral LE all planes Integumentary/Posture Integumentary refer to nursing notes Bladder Incontinence: Benítez Cath Posture WFL Neuromuscular (Tone, Coordination, Reflexes) grossly intact Sensory Vision: Wears Glasses Hearing: Functional Transfers Roll Left to Right (QC): 2 Sit to Lying (QC): 2 Lying to Sitting/Side of Bed(Q: 2 Sit to Stand (QC): 2 Chair/Szr-li-Omqrc Xfer(QC): 2 Gait Does the Patient Walk?: Yes Mode of Locomotion: Walk Anticipated Mode of Locomotion: Walk Walk 10 feet (QC): 2 Walk 50 ft with 2 Turns(QC): 88 Walk 150 ft (QC): 88 Gait Assistive Device: FWW Comments/Gait Description NBOS/shuffle gait sequence Balance Sitting Static: Normal Sitting Dynamic: Normal Standing Static: Fair Standing Dynamic: Fair Assessment/Needs 81 y.o. female, will benefit from skilled PT to address functional strength and mobility to improve current LOF. Patient is currently limited by abdominal pain. Rehab Potential: Guarded PT Catering Barista Goals Assisted Goals PT Catering Barista Goals Time Frame: Jan 18, 2022 Roll Left & Right (QC): 4 Sit to Lying (QC): 4 Lying-Sitting on Side/Bed(QC): 4 Sit to Stand (QC): 4 Chair/Kmx-wb-Juqzx Xfer(QC): 4 Toilet Transfer (QC): 4 Walk 10 feet (QC): 4 Walk 50ft with 2 Turns (QC): 4 Walk 150 ft (QC): 4 PT Plan Problem List Problem List: Activity Tolerance, Functional Strength, Safety, Balance, Gait, Transfer, Bed Mobility Treatment/Plan Treatment Plan: Continue Plan of Care Treatment Plan: Bed Mobility, Education, Functional Activity Pat, Functional Strength, Gait, Safety, Therapeutic Exercise, Transfers Treatment Duration: Jan 18, 2022 Frequency: 6 times per week Estimated Hrs Per Day: .25 hour per day Time/GCodes Time In: 746 Time Out: 759 Total Billed Treatment Time: 13 Total Billed Treatment 1 visit EVMod 13 min BAILEY CHÁVEZ PT Dec 27, 2021 09:39
[2021-12-27] MEDS: ENOXAPARIN 40 MG/0.4 ML (LOVENOX) SYR SC SCH (10:31)
--- NOTE | 2021-12-27 13:30 | Physician Query Clarification ---
Physician Query-General Query to Physician: The medical record reflects the following clinical evidence: Clinical Indicators: RR 22 on admission that increased to 28 to 34 post op and remained elevated for hours, with 02 sats down to 85% on 6L (P/F=114) greater than 8 hours after surgery. Remains on 3-4L 48 hour after surgery with 02 sats 94% on 4L oxymask (P/F=219), Nursing documentation of S0A rest since surgery and continues to document this 48 hour after surgery. Risk Factor(s): Advanced age, Abdominal Surgery, No documentation of Home O2 use Treatment: Supplemental 02 up to 10L, oxymask, Chest xrays x 2, IS and Pulmonary toilet, Albuterol/Ipratropium q 6 hours, 1. Acute pulmonary insufficiency following nonthoracic surgery 2. Other explanation of clinical findings 3. Unable to determine (no explanation for clinical findings) Please clarify and document your clinical opinion in the progress notes and discharge summary including the definitive and/or presumptive diagnosis, (suspected or probable), related to the above clinical findings. Please include clinical findings supporting your diagnosis. Maribeth Dixon RN, MSN Clinical Theatre Manager [phone] [email or web address] PHYSICIAN RESPONSE: Based on the clinical findings in the record, please respond to the query above on this document as an addendum. Physician Response: Physician Response Advanced age and postoperative - 3 If you have questions please contact: Fishery Division Chief: Ext: Thank you for your time and cooperation. Clinical Theatre Manager/Fishery Division Chief This is a permanent part of the medical record MARIBETH DIXON Dec 27, 2021 13:30 KEERTHI ESPINOZA DO Dec 30, 2021 14:09
--- NOTE | 2021-12-27 13:42 | Occupational Therapy Eval ---
OT Evaluation-General/PLF Medical Diagnosis Admission Date Dec 25, 2021 at 09:13 Medical Diagnosis: colon cancer Onset Date: Dec 25, 2021 Therapy Diagnosis Therapy Diagnosis: decreased ADL status Precautions Precautions/Isolations: Standard Precautions Referral Physician: Karla Larios Reason: Evaluation/Treatment Medical History Pertinent Medical History: DM, Dementia, HTN, TBI Additional Medical History HTN, dementia, DM, cataract, TBI Current History s/p subtotal colectomy with ileorectal anastamosis Social History Home: Single Level Current Living Status: Spouse ADL-Prior Level of Function SCALE: Activities may be completed with or without assistive devices. 6-Vfydtvyfhb-edftopb completes the activity by him/herself with no assistance from a helper. 5-Set-up or Clean-up Assistance-helper sets up or cleans up; patient completes activity. [place] assists only prior to or following the activity. 4-Supervision or Touching Assistance-helper provides verbal cues and/or touching/steadying and/or contact guard assistance as patient completes activity. Assistance may be provided throughout the activity or intermittently. 3-Partial/Moderate Assistance-helper does LESS THAN HALF the effort. [place] lifts, holds or supports trunk or limbs, but provides less than half the effort. 2-Substantial/Maximal Assistance-helper does MORE THAN HALF the effort. [place] lifts or holds trunk or limbs and provides more than half the effort. 4-Vtznmjbnv-jspkcn does ALL the effort. Patient does none of the effort to complete the activity. Or, the assistance of 2 or more helpers is required for the patient to complete the activity. If activity was not attempted, code reason: 7-Patient Refused. 9-Not Applicable-not attempted and the patient did not perform the activity before the current illness, exacerbation or injury. 10-Not Attempted due to Environmental Limitations-(lack of equipment, weather restraints, etc.). 88-Not Attempted due to Medical Conditions or Safety Concerns. ADL PLOF Comments Pt reports IND with ADLs prior to recent hospitalizations, and uses a walker for functional mobility. She has a walk in shower with SC. Self Care: Independent Functional Cognition: Independent OT Current Status Subjective Pt up in recliner, agreeable to OT Tx. Mental Status/Objective Patient Orientation: Person, Place, Situation Current Upper Extremity ROM WFL, BUE shoulder flexion to approx 120 degrees Upper Extremity Strength Grossly 3/5 ADL-Treatment Eating (QC): 4 (SBA with liquid diet.) On/Off Footwear (QC): 1 (Pt requires total assist at this time due to abdominal pain.) Other Treatments Pt in recliner, agreeable to OT Tx. Pt provided information about PLOF And home set up. Pt states difficulty with liquid diet due to pain from intubation during procedure. Pt able to take a drink of sprite, but it was too cold. Pt then tried the broth in a mug, OT informed pt what was in the cup prior to her drinking it. After pt tok a drink, she said it was hot chocolate and the milk in it would mess with her stomach. OT again informed pt it was vegetable broth, then pt took a few more drinks. Pt moved straw to tea, took a few drinks of tea. Per PT, pt required max A with transfers on this date. Per clinical judgment, pt would require assistance with footwear and LE dressing due to abdominal pain. Post tx, pt in recliner, call light in reach and all needs met. Education OT Patient Education: Correct positioning, Energy conservation, Modified ADL techniques, Progress toward Goal/Update tx plan, Rehab process Teaching Recipient: Patient Teaching Methods: Discussion Response to Teaching: Verbalize Understanding OT Sales Ledger Administrator Goals [facility] Goals Time Frame: Jan 10, 2022 Eating (QC): 5 Oral Hygiene (QC): 5 Toileting Hygiene (QC): 4 Shower/Bathe Self (QC): 4 Upper Body Dressing (QC): 5 Lower Body Dressing (QC): 4 On/Off Footwear (QC): 4 Additional Goals: 1-Demonstrate ADL Tasks, 2-Verbalize Understanding, 3- ImproveStrength/Pat 1=Demonstrate adherence to instructed precautions during ADL tasks. 2=Patient will verbalize/demonstrate understanding of assistive devices/modifications for ADL. 3=Patient will improve strength/tolerance for activity to enable patient to perform ADL's. OT Education/Plan Problem List/Assessment Assessment: Decreased Activ Tolerance, Decreased UE Strength, Impaired Funct Balance, Impaired I ADL's, Impaired Self-Care Skills Discharge Recommendations Plan/Recommendations: Continue POC Treatment Plan/Plan of Care Patient would benefit from OT for education, treatment and training to promote independence in ADL's, mobility, safety and/or upper extremity function for ADL's. Plan of Care: ADL Retraining, Functional Mobility, UE Funct Exercise/Act Treatment Duration: Jan 10, 2022 Frequency: 3 times per week (3-5 times per week) Rehab Potential: Guarded Time/GCodes Start Time: 13:13 Stop Time: 13:23 Total Time Billed (hr/min): 10 Billed Treatment Time 1, KARI VELASQUEZ OT Dec 27, 2021 13:42
--- NOTE | 2021-12-27 16:14 | Progress Note ---
MARIANA MOTA 12/27/21 1614: Subjective Date Seen by a Provider: Dec 27, 2021 Time Seen by a Provider: 09:15 Subjective/Events-last exam Patient was sitting up in her chair this morning when I arrived. She was alert and reports having no abdominal pain. She believes she has passed some gas but seems a bit unsure. She wants the NG tube out and tried to pulll it out while i was speaking with her. Denies any sweats/chills or nausea/vomiting. She is still only eating ice chips. Review of Systems General: No Chills, No Night Sweats Pulmonary: No Dyspnea Gastrointestinal: No: Nausea, Vomiting, Abdominal Pain Objective Exam Last Set of Vital Signs Vital Signs Date Time Temp Pulse Resp B/P (MAP) Pulse Ox O2 Delivery O2 Flow Rate FiO2 12/27/21 16:00 109 167/78 (107) 94 OxyMask 4.00 12/27/21 15:00 13 12/27/21 08:00 36.6 Capillary Refill : I&O Intake and Output 12/27/21 00:00 Intake Total 1150 ml Output Total 1350 ml Balance -200 ml Intake Oral 0 ml IV Total 1150 ml Output Urine Total 1350 ml General: Alert, No Acute Distress HEENT: PERRLA, EOMI, Other (NG tube in place w/suction) Neck: Supple Heart: No Murmurs, Other (tachycardic) Abdomen: Soft, Other (decreased bowel sounds all quadrants) Extremities: Normal Pulses, No Tenderness/Swelling Skin: No Significant Lesion Results Lab Laboratory Tests 12/26/21 18:53: Glucometer 173H 12/27/21 00:59: Glucometer 204H 12/27/21 04:15: White Blood Count 9.8, Red Blood Count 3.41L, Hemoglobin 9.0L, Hematocrit 29L, Mean Corpuscular Volume 84, Mean Corpuscular Hemoglobin 26, Mean Corpuscular Hemoglobin Concent 32, Red Cell Distribution Width 14.0, Platelet Count 228, Mean Platelet Volume 9.1, Immature Granulocyte % (Auto) 0, Neutrophils (%) (Auto) 81H, Lymphocytes (%) (Auto) 12, Monocytes (%) (Auto) 7, Eosinophils (%) (Auto) 0, Basophils (%) (Auto) 0, Neutrophils # (Auto) 7.9H, Lymphocytes # (Auto) 1.1, Monocytes # (Auto) 0.7, Eosinophils # (Auto) 0.0, Basophils # (Auto) 0.0, Immature Granulocyte # (Auto) 0.0, Sodium Level 141, Potassium Level 3.4L, Chloride Level 110H, Carbon Dioxide Level 22, Anion Gap 9, Blood Urea Nitrogen 11, Creatinine 0.66, Estimat Glomerular Filtration Rate 89, BUN/Creatinine Ratio 17, Glucose Level 164H, Calcium Level 8.4L, Corrected Calcium 9.4, Total Bilirubin 0.2, Aspartate Amino Transf (AST/SGOT) 12, Alanine Aminotransferase (ALT/SGPT) 18, Alkaline Phosphatase 58, Total Protein 4.8L, Albumin 2.8L 12/27/21 11:53: Glucometer 155H Microbiology 12/25/21 MRSA Screen - Final, Complete MRSA not isolated Assessment/Plan Assessment/Plan Assess & Plan/Chief Complaint S/p subtotal colectomy w/ileorectal anastamosis POD #2 Colon cancer Post op care in coordination with her surgeon, Dr. Parks Receiving IV fluids and electrolytes Continue pain management - currently well controlled T2DM Receiving Novolog (sliding scale) HTN Restart home meds Delerium Mild, received 2mg haloperidol last night. Dementia DVT PPX: Lovenox MAYRA BOWDEN DO 12/28/21 0604: Subjective Subjective/Events-last exam Pt is doing well Transferring to 4th floor likely later today Hemoglobin was 9 Potassium was 3.4 NG tube still in place Using IS regularly Objective Exam General: Alert, Oriented X3, Cooperative, No Acute Distress Lungs: Clear to Auscultation Heart: Regular Rate Supervisory-Addendum Brief Verification & Attestation Participated in pt care: history, MDM, physical Personally performed: exam, history, MDM, supervision of care Care discussed with: Medical Student Procedures: n/a Results interpretation: Verified all documentation Verification and Attestation of Medical Student E/M Service A medical student performed and documented this service in my presence. I reviewed and verified all information documented by the medical student and made modifications to such information, when appropriate. I personally performed the physical exam and medical decision making. Mayra Bowden Dec 28, 2021,06:04 MARIANA MOTA Dec 27, 2021 16:14 MAYRA BOWDEN DO Dec 28, 2021 06:04
[2021-12-27] MEDS: inSUlin ASPART (NovoLOG) 1 UNIT/0.01 ML (CHARGE PER UNIT) SC SCH ×2 (17:16→21:57)
--- NOTE | 2021-12-27 17:44 | Progress Note ---
Standard Progress Note Progress Notes/Assess & Plan Date Seen by a Provider: Dec 27, 2021 Time Seen by a Provider: 17:44 Progress/Assessment & Plan Magnesium 1.5, will replace MD HARITHA Cornejo JOSEPH K MD Dec 27, 2021 17:44
[2021-12-28] VITALS (18 sets, daily range): BP systolic 146–178; BP diastolic 56–84
[2021-12-28] MEDS: RT-ALBUTEROL/IPRATROPIUM 3 ML (DUONEB) VIAL INH SCH ×4 (02:31→19:20)
[2021-12-28 03:37] LABS: BASOPHILS % (AUTO) 0 % (0-10); EOSINOPHILS # (AUTO) 0.2 10^3/uL (0.0-0.3); EOSINOPHILS % (AUTO) 3 % (0-10); HEMATOCRIT 29 % (35-52); HEMOGLOBIN 9.2 g/dL (11.5-16.0); LYMPHOCYTES % (AUTO) 13 % (12-44); MEAN CORPUSCULAR HEMOGLOBIN 27 pg (25-34); MEAN CORPUSCULAR HGB CONC 32 g/dL (32-36); MEAN CORPUSCULAR VOLUME 83 fL (80-99); MEAN PLATELET VOLUME 8.9 fL (9.0-12.2); MONOCYTES # (AUTO) 0.5 10^3/uL (0.0-1.0); MONOCYTES % (AUTO) 6 % (0-12); NEUTROPHILS # (AUTO) 5.8 10^3/uL (1.8-7.8); NEUTROPHILS % (AUTO) 77 % (42-75); PLATELET COUNT 220 10^3/uL (130-400); WHITE BLOOD COUNT 7.5 10^3/uL (4.3-11.0)
[2021-12-28 03:44] LABS: ALBUMIN 2.6 GM/DL (3.2-4.5); POTASSIUM 3.5 MMOL/L (3.6-5.0)
[2021-12-28 03:45] LABS: CALCIUM 8.2 MG/DL (8.5-10.1)
[2021-12-28 03:46] LABS: TOTAL PROTEIN 4.7 GM/DL (6.4-8.2)
[2021-12-28 03:48] LABS: BILIRUBIN,TOTAL 0.3 MG/DL (0.1-1.0)
[2021-12-28 03:50] LABS: CREATININE SERUM 0.58 MG/DL (0.60-1.30)
[2021-12-28] MEDS: inSUlin ASPART (NovoLOG) 1 UNIT/0.01 ML (CHARGE PER UNIT) SC SCH ×4 (04:26→20:35)
[2021-12-28] MEDS: KCL 20 MEQ TAB (K-DUR) PO SCH (04:26)
[2021-12-28] MEDS: MAGNESIUM 1 GM/100 ML IVPB 100 ML IV SCH ×3 (04:26→06:06)
[2021-12-28] MEDS: POTASSIUM CL 10MEQ/50ML IVPB 50 ML IV SCH ×3 (04:27→06:06)
[2021-12-28] MEDS: LACTATED RINGERS 1,000 ML IV SCH ×2 (04:36→23:21)
[2021-12-28] MEDS: morphine INJ 4 MG/ML 1 ML (VIAL/SYRINGE) IV PRN ×2 (05:05→16:03)
[2021-12-28] MEDS: PANTOPRAZOLE 40 MG (PROTONIX) TAB PO SCH (06:40)
--- NOTE | 2021-12-28 08:07 | Progress Note ---
Subjective Date Seen by a Provider: Dec 28, 2021 Time Seen by a Provider: 11:00 Subjective/Events-last exam Doing well Advancing diet to CLD DC NGT yesterday No pain Confusion noted Review of Systems General: Fatigue, Malaise Neurological: Confusion Objective Exam Last Set of Vital Signs Vital Signs Date Time Temp Pulse Resp B/P (MAP) Pulse Ox O2 Delivery O2 Flow Rate FiO2 12/28/21 08:00 100 168/71 (103) 95 Nasal Cannula 3.00 12/28/21 07:58 36.5 12/28/21 05:00 10 Capillary Refill : I&O Intake and Output 12/28/21 00:00 Intake Total 250 ml Output Total 1225 ml Balance -975 ml Intake Oral 150 ml IV Total 100 ml Output Urine Total 1225 ml General: Alert, Oriented X3, Cooperative, No Acute Distress, Other (poor rec all) Lungs: Clear to Auscultation, Normal Air Movement Heart: Regular Rate, Normal S1, Normal S2, No Murmurs Psych/Mental Status: Mental Status NL, Mood NL Results Lab Laboratory Tests 12/27/21 11:53: Glucometer 155H 12/27/21 17:12: Glucometer 210H 12/27/21 21:15: Glucometer 216H 12/28/21 03:27: White Blood Count 7.5, Red Blood Count 3.43L, Hemoglobin 9.2L, Hematocrit 29L, Mean Corpuscular Volume 83, Mean Corpuscular Hemoglobin 27, Mean Corpuscular Hemoglobin Concent 32, Red Cell Distribution Width 13.8, Platelet Count 220, Mean Platelet Volume 8.9L, Immature Granulocyte % (Auto) 0, Neutrophils (%) (Auto) 77H, Lymphocytes (%) (Auto) 13, Monocytes (%) (Auto) 6, Eosinophils (%) (Auto) 3, Basophils (%) (Auto) 0, Neutrophils # (Auto) 5.8, Lymphocytes # (Auto) 1.0, Monocytes # (Auto) 0.5, Eosinophils # (Auto) 0.2, Basophils # (Auto) 0.0, Immature Granulocyte # (Auto) 0.0, Sodium Level 140, Potassium Level 3.5L, Chloride Level 106, Carbon Dioxide Level 23, Anion Gap 11, Blood Urea Nitrogen 7, Creatinine 0.58L, Estimat Glomerular Filtration Rate 92, BUN/Creatinine Ratio 12, Glucose Level 163H, Calcium Level 8.2L, Corrected Calcium 9.3, Magnesium Level 1.7, Total Bilirubin 0.3, Aspartate Amino Transf (AST/SGOT) 11, Alanine Aminotransferase (ALT/SGPT) 16, Alkaline Phosphatase 55, Total Protein 4.7L, Albumin 2.6L Microbiology 12/25/21 MRSA Screen - Final, Complete MRSA not isolated Assessment/Plan Assessment/Plan Assess & Plan/Chief Complaint S/p subtotal colectomy w/ileorectal anastamosis POD #3 Colon cancer Post op care in coordination with her surgeon, Dr. Parks Receiving IV fluids and electrolytes Continue pain management - currently well controlled T2DM Receiving Novolog (sliding scale) HTN Restart home meds Delerium Mild, received 2mg haloperidol last night. Dementia DVT PPX: JAMES Novoa DO Dec 28, 2021 08:07
--- NOTE | 2021-12-28 10:05 | Tele-ICU Progress Note ---
Subjective Date Seen by a Provider: Dec 28, 2021 Time Seen by a Provider: 10:04 Subjective/Events-last exam (Tele-ICU Physician , Progress Note ) Available chart/ vitals / labs / Images reviewed Video assessment done using teleICU camera, rest of exam as per RN Discussed with RN Events overnight : Afebrile hemodynamically stable Respiratory - 3l I/O = Drips: Pressors- no Consultants: Hospital course: 12/25 81 year old with DM, and colon cancer admitted post oiperatively s/p lap subtotal colectomy and ileo rectal anaostomosis. extubated and on ventimask. A/P s/p lap subtotal colectomy and ileo rectal anaostomosis for colon CA - pain control - as per Sx Hypoxia post op - on 3 l o2 , CXR clear - cont IS -NOTED TO HAVE HYPOXIX WHEN SLEEPS , MOST LIKELY HATTIE - WILL NEED STUDY OUTPT Anemia - stable .. monitor DM - ISS Urinary retention - hoffman is back in 12/28 replace electrolytes Lines : periph , (Central Line Necessity Reviewed) Hoffman: + BACK 12/28 OG: Nutrition: po Analgesia: Anxiety/ delirium VTE Prophylaxis: scd Stress Ulcer Prophylaxis: na Plans in collaboration with bedside consultants and IM MDs. Discussed with RN to reach out if any questions or concerns A total of 22 minutes of critical care time was devoted to this patient today, required to treat and/or prevent further deterioration of critical care condition ( as above ) . Sepsis Event Evaluation Height, Weight, BMI Height: '" Weight: lbs. oz. kg; 38.54 BMI Method: Exam Exam Patient acknowledged, consented, and participated in this virtual visit which was conducted using real time audio/video Vital Signs Date Time Temp Pulse Resp B/P (MAP) Pulse Ox O2 Delivery O2 Flow Rate FiO2 12/28/21 09:13 36.5 103 97 32 12/28/21 09:11 97 Nasal Cannula 3.00 12/28/21 09:00 103 146/71 (96) 95 Nasal Cannula 3.00 12/28/21 08:00 100 168/71 (103) 95 Nasal Cannula 3.00 12/28/21 08:00 93 Nasal Cannula 3.00 12/28/21 07:58 36.5 12/28/21 07:00 94 12/28/21 07:00 94 170/61 (97) 95 Nasal Cannula 3.00 12/28/21 06:00 96 156/73 (100) 98 Nasal Cannula 3.00 12/28/21 05:10 98 164/66 (98) 90 Nasal Cannula 3.00 12/28/21 05:00 98 10 172/69 (103) 97 Nasal Cannula 3.00 12/28/21 04:21 36.0 12/28/21 04:00 93 13 170/84 (112) 96 Nasal Cannula 3.00 12/28/21 04:00 93 Nasal Cannula 3.00 12/28/21 03:25 96 13 178/71 (106) 94 Nasal Cannula 3.00 12/28/21 03:00 95 11 171/68 (102) 96 Nasal Cannula 3.00 12/28/21 02:38 98 14 95 Nasal Cannula 3.00 12/28/21 02:32 96 Nasal Cannula 5.00 12/28/21 02:24 100 10 177/80 (112) 98 Nasal Cannula 4.00 12/28/21 02:00 95 17 174/66 (102) 96 Nasal Cannula 4.00 12/28/21 01:00 94 16 157/74 (101) 90 Nasal Cannula 4.00 12/28/21 01:00 94 12/28/21 00:14 36.1 12/28/21 00:00 94 Nasal Cannula 3.00 12/28/21 00:00 102 157/74 (101) 90 Nasal Cannula 4.00 12/27/21 23:00 93 36 163/70 (101) 93 Nasal Cannula 4.00 12/27/21 22:00 105 15 162/70 (100) 95 Nasal Cannula 4.00 12/27/21 21:00 108 36 159/70 (99) 96 Nasal Cannula 4.00 12/27/21 20:46 96 Nasal Cannula 3.00 12/27/21 20:00 101 13 162/64 (96) 97 Nasal Cannula 4.00 12/27/21 20:00 93 Nasal Cannula 3.00 12/27/21 19:00 107 19 183/71 (108) 96 Nasal Cannula 4.00 12/27/21 19:00 107 12/27/21 18:00 108 178/71 (106) 95 OxyMask 4.00 12/27/21 17:00 101 24 115/62 (79) 93 OxyMask 4.00 12/27/21 16:00 109 167/78 (107) 94 OxyMask 4.00 12/27/21 16:00 94 Nasal Cannula 3.00 12/27/21 15:00 110 13 95 OxyMask 4.00 12/27/21 14:59 99 Nasal Cannula 3.00 12/27/21 14:00 106 15 166/69 (101) 96 OxyMask 4.00 12/27/21 13:00 106 155/58 (90) 97 OxyMask 4.00 12/27/21 12:51 113 12/27/21 12:00 110 165/68 (100) 94 OxyMask 4.00 12/27/21 12:00 94 Nasal Cannula 3.00 12/27/21 11:00 106 22 161/52 (88) 96 OxyMask 4.00 I & O 12/28/21 07:00 Intake Total 1400 ml Output Total 1475 ml Balance -75 ml Height & Weight Height: '" Weight: lbs. oz. kg; 38.54 BMI Method: General Appearance: No Apparent Distress, Chronically ill, Obese HEENT: PERRL/EOMI, Normal ENT Inspection Neck: Non Tender, Supple Respiratory: Chest Non Tender, No Accessory Muscle Use, No Respiratory Distress Cardiovascular: No JVD, Tachycardia Gastrointestinal: soft, tenderness (minimal, incisions c/d/i no signs of infection.) Extremity: Normal Capillary Refill, No Calf Tenderness Neurologic/Psychiatric: Alert, Normal Mood/Affect Skin: Normal Color, Warm/Dry Lymphatic: No Adenopathy Results Lab Laboratory Tests 12/27/21 04:15 12/28/21 03:27 Assessment/Plan Assessment/Plan 1 JOCE BANEGAS MD Dec 28, 2021 10:05
[2021-12-28] MEDS: ENOXAPARIN 40 MG/0.4 ML (LOVENOX) SYR SC SCH (11:04)
--- NOTE | 2021-12-28 11:04 | Physical Therapy Daily Note ---
PT Daily Note-Current Subjective Pt is awake and alert on arrival. (L) ankle soreness when removing and replacing SCD. Pain Numeric Pain Scale: 5-Moderate Pain Location: Left Location Body Site: Ankle Pain Description: Sharp Mental Status Patient Orientation: Person, Place, Time, Situation Attachments: Oxygen, Benítez Catheter, IV Transfers SCALE: Activities may be completed with or without assistive devices. 0-Zggmjmszyk-ncmhtlr completes the activity by him/herself with no assistance from a helper. 5-Set-up or Clean-up Assistance-helper sets up or cleans up; patient completes activity. [place] assists only prior to or following the activity. 4-Supervision or Touching Assistance-helper provides verbal cues and/or touching/steadying and/or contact guard assistance as patient completes activity. Assistance may be provided throughout the activity or intermittently. 3-Partial/Moderate Assistance-helper does LESS THAN HALF the effort. [place] lifts, holds or supports trunk or limbs, but provides less than half the effort. 2-Substantial/Maximal Assistance-helper does MORE THAN HALF the effort. [place] lifts or holds trunk or limbs and provides more than half the effort. 1-Ihapcnemn-jxygbr does ALL the effort. Patient does none of the effort to complete the activity. Or, the assistance of 2 or more helpers is required for the patient to complete the activity. If activity was not attempted, code reason: 7-Patient Refused. 9-Not Applicable-not attempted and the patient did not perform the activity before the current illness, exacerbation or injury. 10-Not Attempted due to Environmental Limitations-(lack of equipment, weather restraints, etc.). 88-Not Attempted due to Medical Conditions or Safety Concerns. Weight Bearing Right Lower Extremity: Right Weight Bearing/Tolerated Left Lower Extremity: Left Weight Bearing/Tolerated Exercises Supine Ex: LE Protocol Supine Reps: 15 Assessment Current Status: Good Progress Pt reported that she was too tired to get up and stand due to fatigue and (L) ankle soreness. Able to perform (B) LE ex with only cues. PT Art Psychotherapist Goals Art Psychotherapist Goals PT Retirement Goals Time Frame: Jan 18, 2022 Roll Left & Right (QC): 4 Sit to Lying (QC): 4 Lying-Sitting on Side/Bed(QC): 4 Sit to Stand (QC): 4 Chair/Xbe-fn-Zhnsl Xfer(QC): 4 Toilet Transfer (QC): 4 Walk 10 feet (QC): 4 Walk 50ft with 2 Turns (QC): 4 Walk 150 ft (QC): 4 PT Plan Treatment/Plan Treatment Plan: Continue Plan of Care Treatment Plan: Bed Mobility, Education, Functional Activity Pat, Functional Strength, Gait, Safety, Therapeutic Exercise, Transfers Treatment Duration: Jan 18, 2022 Frequency: 6 times per week Estimated Hrs Per Day: .25 hour per day Time/GCodes Time In: 931 Time Out: 0944 Total Billed Treatment Time: 12 Total Billed Treatment 1, ex 12 ALICIA FAIR PT Dec 28, 2021 11:04
--- NOTE | 2021-12-28 11:47 | Progress Note - Surgery ---
LEXX CASTILLO 12/28/21 1147: Subjective Date Seen by a Provider: Dec 28, 2021 Time Seen by a Provider: 08:40 Subjective/Events-last exam Patient says she is doing well today and that she is in no pain. She has not had a BM yet but is having flatus. Benítez had to be re-inserted due to retention. P cassy is not ambulating because she is a fall risk, she does endorse using her IS. She is tolerating a clear diet well. Review of Systems General: No Chills, No Night Sweats Pulmonary: No Dyspnea; Cough Cardiovascular: No: Chest Pain Gastrointestinal: No: Nausea, Vomiting, Abdominal Pain Objective Exam Vital Signs Date Time Temp Pulse Resp B/P (MAP) Pulse Ox O2 Delivery O2 Flow Rate FiO2 12/28/21 10:00 100 153/56 (88) 96 Nasal Cannula 3.00 12/28/21 09:13 36.5 103 97 32 12/28/21 09:11 97 Nasal Cannula 3.00 12/28/21 09:00 103 146/71 (96) 95 Nasal Cannula 3.00 12/28/21 08:00 100 168/71 (103) 95 Nasal Cannula 3.00 12/28/21 08:00 93 Nasal Cannula 3.00 12/28/21 07:58 36.5 12/28/21 07:00 94 12/28/21 07:00 94 170/61 (97) 95 Nasal Cannula 3.00 12/28/21 06:00 96 156/73 (100) 98 Nasal Cannula 3.00 12/28/21 05:10 98 164/66 (98) 90 Nasal Cannula 3.00 12/28/21 05:00 98 10 172/69 (103) 97 Nasal Cannula 3.00 12/28/21 04:21 36.0 12/28/21 04:00 93 13 170/84 (112) 96 Nasal Cannula 3.00 12/28/21 04:00 93 Nasal Cannula 3.00 12/28/21 03:25 96 13 178/71 (106) 94 Nasal Cannula 3.00 12/28/21 03:00 95 11 171/68 (102) 96 Nasal Cannula 3.00 12/28/21 02:38 98 14 95 Nasal Cannula 3.00 12/28/21 02:32 96 Nasal Cannula 5.00 12/28/21 02:24 100 10 177/80 (112) 98 Nasal Cannula 4.00 12/28/21 02:00 95 17 174/66 (102) 96 Nasal Cannula 4.00 12/28/21 01:00 94 16 157/74 (101) 90 Nasal Cannula 4.00 12/28/21 01:00 94 12/28/21 00:14 36.1 12/28/21 00:00 94 Nasal Cannula 3.00 12/28/21 00:00 102 157/74 (101) 90 Nasal Cannula 4.00 12/27/21 23:00 93 36 163/70 (101) 93 Nasal Cannula 4.00 12/27/21 22:00 105 15 162/70 (100) 95 Nasal Cannula 4.00 12/27/21 21:00 108 36 159/70 (99) 96 Nasal Cannula 4.00 12/27/21 20:46 96 Nasal Cannula 3.00 12/27/21 20:00 101 13 162/64 (96) 97 Nasal Cannula 4.00 12/27/21 20:00 93 Nasal Cannula 3.00 12/27/21 19:00 107 19 183/71 (108) 96 Nasal Cannula 4.00 12/27/21 19:00 107 12/27/21 18:00 108 178/71 (106) 95 OxyMask 4.00 12/27/21 17:00 101 24 115/62 (79) 93 OxyMask 4.00 12/27/21 16:00 109 167/78 (107) 94 OxyMask 4.00 12/27/21 16:00 94 Nasal Cannula 3.00 12/27/21 15:00 110 13 95 OxyMask 4.00 12/27/21 14:59 99 Nasal Cannula 3.00 12/27/21 14:00 106 15 166/69 (101) 96 OxyMask 4.00 12/27/21 13:00 106 155/58 (90) 97 OxyMask 4.00 12/27/21 12:51 113 12/27/21 12:00 110 165/68 (100) 94 OxyMask 4.00 12/27/21 12:00 94 Nasal Cannula 3.00 I & O 12/28/21 07:00 Intake Total 1400 ml Output Total 1475 ml Balance -75 ml Capillary Refill : General Appearance: No Apparent Distress, Chronically ill, Obese Respiratory: Lungs Clear, Normal Breath Sounds, No Accessory Muscle Use, No Respiratory Distress Cardiovascular: Regular Rate, Rhythm, No Murmur, Tachycardia Peripheral Pulses: 2+ Radial Pulses (R), 2+ Radial Pulses (L) Gastrointestinal: soft, tenderness (tenderness in all quadrants to light palpation) Neurologic/Psychiatric: Alert, Normal Mood/Affect Results Lab Laboratory Tests 12/27/21 11:53: Glucometer 155H 12/27/21 17:12: Glucometer 210H 12/27/21 21:15: Glucometer 216H 12/28/21 03:27: White Blood Count 7.5, Red Blood Count 3.43L, Hemoglobin 9.2L, Hematocrit 29L, Mean Corpuscular Volume 83, Mean Corpuscular Hemoglobin 27, Mean Corpuscular Hemoglobin Concent 32, Red Cell Distribution Width 13.8, Platelet Count 220, Mean Platelet Volume 8.9L, Immature Granulocyte % (Auto) 0, Neutrophils (%) (Auto) 77H, Lymphocytes (%) (Auto) 13, Monocytes (%) (Auto) 6, Eosinophils (%) (Auto) 3, Basophils (%) (Auto) 0, Neutrophils # (Auto) 5.8, Lymphocytes # (Auto) 1.0, Monocytes # (Auto) 0.5, Eosinophils # (Auto) 0.2, Basophils # (Auto) 0.0, Immature Granulocyte # (Auto) 0.0, Sodium Level 140, Potassium Level 3.5L, Chloride Level 106, Carbon Dioxide Level 23, Anion Gap 11, Blood Urea Nitrogen 7, Creatinine 0.58L, Estimat Glomerular Filtration Rate 92, BUN/Creatinine Ratio 12, Glucose Level 163H, Calcium Level 8.2L, Corrected Calcium 9.3, Magnesium Level 1.7, Total Bilirubin 0.3, Aspartate Amino Transf (AST/SGOT) 11, Alanine Aminotransferase (ALT/SGPT) 16, Alkaline Phosphatase 55, Total Protein 4.7L, Albumin 2.6L 12/28/21 10:49: Glucometer 230H Microbiology 12/25/21 MRSA Screen - Final, Complete MRSA not isolated Assessment/Plan Assessment/Plan Assessment/Plan S/P subtotal colectomy Colon cancer Advance the patients diet as she is tolerating liquids well. Encourage patient to use IS as much as possible. Continue with IV morphine for pain control. MYNOR CAMPOS DO 12/28/21 1228: Subjective Time Seen by a Provider: 10:06 Subjective/Events-last exam Pt seen and examined, states she feels ok. +flatus but no BM, is tolerating clears Review of Systems General: No Chills, No Night Sweats Pulmonary: No Dyspnea; Cough Cardiovascular: No: Chest Pain Gastrointestinal: No: Nausea, Vomiting, Abdominal Pain Objective Exam General Appearance: Chronically ill, Obese Respiratory: Lungs Clear, Normal Breath Sounds, No Accessory Muscle Use, No Respiratory Distress Cardiovascular: Regular Rate, Rhythm, No Murmur Gastrointestinal: soft, tenderness (tenderness in all quadrants to light palpation), other (incisions C/D/I) Neurologic/Psychiatric: Alert Assessment/Plan Assessment/Plan Assessment/Plan S/P subtotal colectomy Colon cancer Advance the patients diet as she is tolerating liquids well. Encourage patient to use IS as much as possible. Continue with IV morphine for pain control. Supervisory-Addendum Brief Verification & Attestation Participated in pt care: history, MDM, physical Personally performed: exam, history, MDM, supervision of care Care discussed with: Medical Student Procedures: n/a Verification and Attestation of Medical Student E/M Service A medical student performed and documented this service. I then reviewed and verified all information documented by the medical student and made modifications to such information, when appropriate. I personally performed a physical exam, medical decision making and then discussed any differences between the notes and made revisions as necessary to create one note. Mynor Campos , 12/28/21 , 12:27 LEXX CASTILLO Dec 28, 2021 11:47 MYNOR CAMPOS DO Dec 28, 2021 12:28
[2021-12-28] MEDS: BETHANECHOL 25 MG (URECHOLINE) TAB PO SCH ×3 (13:14→20:00)
[2021-12-28] MEDS: HYDROcodone/APAP 5 MG/325 MG (LORTAB) TAB PO PRN ×2 (14:35→22:06)
[2021-12-29] VITALS (7 sets, daily range): BP systolic 142–152; BP diastolic 65–83
[2021-12-29] MEDS: morphine INJ 4 MG/ML 1 ML (VIAL/SYRINGE) IV PRN (01:59)
[2021-12-29] MEDS: ONDANSETRON 4 MG/2 ML (SDV) Z0FRAN IVP PRN ×2 (01:59→16:34)
[2021-12-29] MEDS: RT-ALBUTEROL/IPRATROPIUM 3 ML (DUONEB) VIAL INH SCH ×4 (03:03→22:04)
[2021-12-29 03:55] LABS: BASOPHILS % (AUTO) 1 % (0-10); EOSINOPHILS # (AUTO) 0.2 10^3/uL (0.0-0.3); EOSINOPHILS % (AUTO) 3 % (0-10); HEMATOCRIT 29 % (35-52); HEMOGLOBIN 9.5 g/dL (11.5-16.0); LYMPHOCYTES # (AUTO) 0.9 10^3/uL (1.0-4.0); LYMPHOCYTES % (AUTO) 12 % (12-44); MEAN CORPUSCULAR HEMOGLOBIN 27 pg (25-34); MEAN CORPUSCULAR HGB CONC 33 g/dL (32-36); MEAN CORPUSCULAR VOLUME 82 fL (80-99); MONOCYTES # (AUTO) 0.4 10^3/uL (0.0-1.0); MONOCYTES % (AUTO) 6 % (0-12); NEUTROPHILS # (AUTO) 6.1 10^3/uL (1.8-7.8); NEUTROPHILS % (AUTO) 79 % (42-75); PLATELET COUNT 269 10^3/uL (130-400); WHITE BLOOD COUNT 7.7 10^3/uL (4.3-11.0)
[2021-12-29 04:09] LABS: ALBUMIN 2.5 GM/DL (3.2-4.5)
[2021-12-29 04:10] LABS: POTASSIUM 3.9 MMOL/L (3.6-5.0)
[2021-12-29 04:11] LABS: CALCIUM 8.1 MG/DL (8.5-10.1)
[2021-12-29 04:12] LABS: TOTAL PROTEIN 4.6 GM/DL (6.4-8.2)
[2021-12-29 04:14] LABS: BILIRUBIN,TOTAL 0.3 MG/DL (0.1-1.0)
[2021-12-29 04:16] LABS: CREATININE SERUM 0.61 MG/DL (0.60-1.30)
[2021-12-29] MEDS: BETHANECHOL 25 MG (URECHOLINE) TAB PO SCH ×4 (05:02→19:31)
[2021-12-29] MEDS: inSUlin ASPART (NovoLOG) 1 UNIT/0.01 ML (CHARGE PER UNIT) SC SCH ×4 (05:03→20:30)
[2021-12-29] MEDS: PANTOPRAZOLE 40 MG (PROTONIX) TAB PO SCH (05:41)
--- NOTE | 2021-12-29 06:40 | Progress Note ---
Subjective Date Seen by a Provider: Dec 29, 2021 Time Seen by a Provider: 11:00 Subjective/Events-last exam Patient doing well today Abdominal pain is an issue Benítez catheter still in place retention of urine was an issue No other concerns at this point Confusion continues Review of Systems Gastrointestinal: Abdominal Pain Neurological: Confusion Objective Exam Last Set of Vital Signs Vital Signs Date Time Temp Pulse Resp B/P (MAP) Pulse Ox O2 Delivery O2 Flow Rate FiO2 12/29/21 03:39 36.5 96 22 146/69 (94) 97 Nasal Cannula 3.00 12/28/21 09:13 32 Capillary Refill : I&O Intake and Output 12/29/21 00:00 Intake Total 2200 ml Output Total 1575 ml Balance 625 ml Intake Oral 1050 ml IV Total 1150 ml Output Urine Total 1575 ml General: Alert, Oriented X3 (Subtle confusion), Cooperative, No Acute Distress Lungs: Clear to Auscultation, Normal Air Movement Neuro: Normal Gait, Normal Speech, Strength at 5/5 X4 Ext, Normal Tone Psych/Mental Status: Mental Status NL, Mood NL Results Lab Laboratory Tests 12/28/21 10:49: Glucometer 230H 12/28/21 15:52: Glucometer 211H 12/28/21 20:25: Glucometer 205H 12/29/21 03:45: White Blood Count 7.7, Red Blood Count 3.53L, Hemoglobin 9.5L, Hematocrit 29L, Mean Corpuscular Volume 82, Mean Corpuscular Hemoglobin 27, Mean Corpuscular Hemoglobin Concent 33, Red Cell Distribution Width 13.8, Platelet Count 269, Mean Platelet Volume 9.0, Immature Granulocyte % (Auto) 0, Neutrophils (%) (Auto) 79H, Lymphocytes (%) (Auto) 12, Monocytes (%) (Auto) 6, Eosinophils (%) (Auto) 3, Basophils (%) (Auto) 1, Neutrophils # (Auto) 6.1, Lymphocytes # (Auto) 0.9L, Monocytes # (Auto) 0.4, Eosinophils # (Auto) 0.2, Basophils # (Auto) 0.0, Immature Granulocyte # (Auto) 0.0, Sodium Level 138, Potassium Level 3.9, Chloride Level 103, Carbon Dioxide Level 23, Anion Gap 12, Blood Urea Nitrogen 6L, Creatinine 0.61, Estimat Glomerular Filtration Rate 91, BUN/Creatinine Ratio 10, Glucose Level 198H, Calcium Level 8.1L, Corrected Calcium 9.3, Magnesium Level 1.8, Total Bilirubin 0.3, Aspartate Amino Transf (AST/SGOT) 12, Alanine Aminotransferase (ALT/SGPT) 13, Alkaline Phosphatase 50, Total Protein 4.6L, Albumin 2.5L Microbiology 12/25/21 MRSA Screen - Final, Complete MRSA not isolated Assessment/Plan Assessment/Plan Assess & Plan/Chief Complaint S/p subtotal colectomy w/ileorectal anastamosis POD #4 Colon cancer Post op care in coordination with her surgeon, Dr. Parks Receiving IV fluids and electrolytes Continue pain management - currently well controlled T2DM Receiving Novolog (sliding scale) HTN Restarted home meds Delerium Mild, received 2mg haloperidol last night. Dementia Postop urinary retention requiring Benítez catheter placement again DVT PPX: Lovenox JAMES BOWDEN DO Dec 29, 2021 06:40
[2021-12-29] MEDS: ENOXAPARIN 40 MG/0.4 ML (LOVENOX) SYR SC SCH (08:43)
--- NOTE | 2021-12-29 08:55 | Progress Note - Surgery ---
LEXX CASTILLO 12/29/21 0855: Subjective Date Seen by a Provider: Dec 29, 2021 Time Seen by a Provider: 07:35 Subjective/Events-last exam Patient seems more confused today than she was yesterday. Her answer to most questions was that she just wanted to get dressed in normal clothes. She did say she was having flatus and denied being in any pain. Per RN she has not had a BM last night or this morning. Still has a hoffman in due to retention. Is not ambulating because she is a fall risk. Review of Systems General: No Chills, No Night Sweats Pulmonary: No Dyspnea Cardiovascular: No: Chest Pain Gastrointestinal: No: Nausea, Vomiting, Abdominal Pain Objective Exam Vital Signs Date Time Temp Pulse Resp B/P (MAP) Pulse Ox O2 Delivery O2 Flow Rate FiO2 12/29/21 07:00 36.6 104 20 142/65 (90) 94 Nasal Cannula 3.00 12/29/21 03:39 36.5 96 22 146/69 (94) 97 Nasal Cannula 3.00 12/29/21 00:00 36.7 95 16 142/80 (100) 97 Nasal Cannula 3.00 12/28/21 20:48 Nasal Cannula 3.00 12/28/21 20:20 36.2 102 22 152/83 (106) 96 Nasal Cannula 3.00 12/28/21 19:19 95 Nasal Cannula 3.00 12/28/21 15:45 36.7 101 22 161/81 (107) 96 Nasal Cannula 3.00 12/28/21 12:26 35.8 104 20 154/65 (94) 95 Nasal Cannula 3.00 12/28/21 10:00 100 153/56 (88) 96 Nasal Cannula 3.00 12/28/21 09:13 36.5 103 97 32 12/28/21 09:11 97 Nasal Cannula 3.00 12/28/21 09:00 103 146/71 (96) 95 Nasal Cannula 3.00 I & O 12/29/21 07:00 Intake Total 1150 ml Output Total 1225 ml Balance -75 ml Capillary Refill : General Appearance: Chronically ill, Obese Respiratory: Lungs Clear, Normal Breath Sounds, No Accessory Muscle Use, No Respiratory Distress Cardiovascular: Regular Rate, Rhythm, No Murmur Peripheral Pulses: 2+ Radial Pulses (R), 2+ Radial Pulses (L) Gastrointestinal: soft, tenderness (LUQ to light palpation), other (dressings over incisions were clean, no drainage) Neurologic/Psychiatric: Disoriented Results Lab Laboratory Tests 12/28/21 10:49: Glucometer 230H 12/28/21 15:52: Glucometer 211H 12/28/21 20:25: Glucometer 205H 12/29/21 03:45: White Blood Count 7.7, Red Blood Count 3.53L, Hemoglobin 9.5L, Hematocrit 29L, Mean Corpuscular Volume 82, Mean Corpuscular Hemoglobin 27, Mean Corpuscular Hemoglobin Concent 33, Red Cell Distribution Width 13.8, Platelet Count 269, Mean Platelet Volume 9.0, Immature Granulocyte % (Auto) 0, Neutrophils (%) (Auto) 79H, Lymphocytes (%) (Auto) 12, Monocytes (%) (Auto) 6, Eosinophils (%) (Auto) 3, Basophils (%) (Auto) 1, Neutrophils # (Auto) 6.1, Lymphocytes # (Auto) 0.9L, Monocytes # (Auto) 0.4, Eosinophils # (Auto) 0.2, Basophils # (Auto) 0.0, Immature Granulocyte # (Auto) 0.0, Sodium Level 138, Potassium Level 3.9, Chloride Level 103, Carbon Dioxide Level 23, Anion Gap 12, Blood Urea Nitrogen 6L, Creatinine 0.61, Estimat Glomerular Filtration Rate 91, BUN/Creatinine Ratio 10, Glucose Level 198H, Calcium Level 8.1L, Corrected Calcium 9.3, Magnesium Level 1.8, Total Bilirubin 0.3, Aspartate Amino Transf (AST/SGOT) 12, Alanine Aminotransferase (ALT/SGPT) 13, Alkaline Phosphatase 50, Total Protein 4.6L, Alb umin 2.5L Microbiology 12/25/21 MRSA Screen - Final, Complete MRSA not isolated Assessment/Plan Assessment/Plan Assessment/Plan S/p subtotal colectomy w/ileorectal anastamosis POD #4 Colon cancer Encourage patient to use IS as much as possible. Continue with IV morphine for pain control. MYNOR CAMPOS DO 12/29/21 1635: Subjective Time Seen by a Provider: 12:26 Subjective/Events-last exam Pt seen and examined, appears more alert than she was this am; sitting up in chair. States positive flatus but no BM. Tolerating clears. Review of Systems General: No Chills, No Night Sweats Pulmonary: No Dyspnea Cardiovascular: No: Chest Pain Gastrointestinal: Abdominal Pain; No: Nausea, Vomiting Objective Exam General Appearance: Chronically ill, Obese HEENT: Moist Mucous Membranes Respiratory: Lungs Clear, Normal Breath Sounds, No Accessory Muscle Use, No Respiratory Distress Cardiovascular: Regular Rate, Rhythm, No Murmur Gastrointestinal: soft, distended, tenderness (LUQ to light palpation), other (dressings over incisions were clean, no drainage) Assessment/Plan Assessment/Plan Assessment/Plan S/p subtotal colectomy w/ileorectal anastamosis POD #4 Colon cancer Encourage patient to use IS as much as possible. Continue clear liquid diet, hoffman and IV morphine for pain control. Supervisory-Addendum Brief Verification & Attestation Participated in pt care: history, MDM, physical Personally performed: exam, history, MDM, supervision of care Care discussed with: Medical Student Procedures: n/a Verification and Attestation of Medical Student E/M Service A medical student performed and documented this service. I then reviewed and verified all information documented by the medical student and made modifications to such information, when appropriate. I personally performed a physical exam, medical decision making and then discussed any differences between the notes and made revisions as necessary to create one note. Mynor Campos , 12/29/21 , 16:35 LEXX CASTILLO Dec 29, 2021 08:55 MYNOR CAMPOS DO Dec 29, 2021 16:35
[2021-12-29] MEDS: HYDROcodone/APAP 5 MG/325 MG (LORTAB) TAB PO PRN ×3 (09:41→21:27)
[2021-12-29] MEDS: LACTATED RINGERS 1,000 ML IV SCH (12:32)
[2021-12-30] VITALS (7 sets, daily range): BP systolic 140–171; BP diastolic 70–83
[2021-12-30] MEDS: LACTATED RINGERS 1,000 ML IV SCH ×2 (01:22→16:28)
[2021-12-30] MEDS: RT-ALBUTEROL/IPRATROPIUM 3 ML (DUONEB) VIAL INH SCH ×2 (03:00→07:38)
[2021-12-30] MEDS: inSUlin ASPART (NovoLOG) 1 UNIT/0.01 ML (CHARGE PER UNIT) SC SCH ×4 (05:56→20:35)
[2021-12-30] MEDS: PANTOPRAZOLE 40 MG (PROTONIX) TAB PO SCH (05:56)
[2021-12-30] MEDS: BETHANECHOL 25 MG (URECHOLINE) TAB PO SCH ×4 (05:56→20:35)
[2021-12-30 06:07] LABS: BASOPHILS % (AUTO) 1 % (0-10); EOSINOPHILS # (AUTO) 0.2 10^3/uL (0.0-0.3); EOSINOPHILS % (AUTO) 4 % (0-10); HEMATOCRIT 28 % (35-52); LYMPHOCYTES # (AUTO) 0.7 10^3/uL (1.0-4.0); LYMPHOCYTES % (AUTO) 13 % (12-44); MEAN CORPUSCULAR HEMOGLOBIN 27 pg (25-34); MEAN CORPUSCULAR HGB CONC 32 g/dL (32-36); MEAN CORPUSCULAR VOLUME 83 fL (80-99); MEAN PLATELET VOLUME 8.7 fL (9.0-12.2); MONOCYTES # (AUTO) 0.4 10^3/uL (0.0-1.0); MONOCYTES % (AUTO) 7 % (0-12); NEUTROPHILS # (AUTO) 4.3 10^3/uL (1.8-7.8); NEUTROPHILS % (AUTO) 75 % (42-75); PLATELET COUNT 272 10^3/uL (130-400); WHITE BLOOD COUNT 5.7 10^3/uL (4.3-11.0)
[2021-12-30 06:33] LABS: ALBUMIN 2.6 GM/DL (3.2-4.5); BILIRUBIN,TOTAL 0.3 MG/DL (0.1-1.0); CALCIUM 8.1 MG/DL (8.5-10.1); CREATININE SERUM 0.66 MG/DL (0.60-1.30); POTASSIUM 3.8 MMOL/L (3.6-5.0); TOTAL PROTEIN 4.6 GM/DL (6.4-8.2)
--- NOTE | 2021-12-30 06:53 | Progress Note ---
Subjective Date Seen by a Provider: Dec 30, 2021 Time Seen by a Provider: 11:00 Subjective/Events-last exam Having more pain Slowing down on CLD will help the N/V I did confer with Dr Lanza Pain controlled on pain meds Catheter in place Reviewed labs Review of Systems General: Fatigue, Malaise Gastrointestinal: Nausea, Vomiting, Abdominal Pain Objective Exam Last Set of Vital Signs Vital Signs Date Time Temp Pulse Resp B/P (MAP) Pulse Ox O2 Delivery O2 Flow Rate FiO2 12/30/21 03:49 36.7 100 16 158/77 (104) 97 Nasal Cannula 3.00 12/28/21 09:13 32 Capillary Refill : I&O Intake and Output 12/30/21 00:00 Intake Total 2605 ml Output Total 975 ml Balance 1630 ml Intake Oral 1605 ml IV Total 1000 ml Output Urine Total 975 ml # [place] 2 General: Alert, Oriented X3, Cooperative, Mild Distress Lungs: Clear to Auscultation Heart: Regular Rate, Normal S1, Normal S2, No Murmurs Psych/Mental Status: Mental Status NL, Mood NL, Other (minimal confusion) Results Lab Laboratory Tests 12/29/21 11:32: Glucometer 185H 12/29/21 16:17: Glucometer 198H 12/29/21 20:24: Glucometer 171H 12/30/21 05:22: Glucometer 180H 12/30/21 05:55: White Blood Count 5.7, Red Blood Count 3.40L, Hemoglobin 9.0L, Hematocrit 28L, Mean Corpuscular Volume 83, Mean Corpuscular Hemoglobin 27, Mean Corpuscular Hemoglobin Concent 32, Red Cell Distribution Width 13.4, Platelet Count 272, Mean Platelet Volume 8.7L, Immature Granulocyte % (Auto) 1, Neutrophils (%) (Auto) 75, Lymphocytes (%) (Auto) 13, Monocytes (%) (Auto) 7, Eosinophils (%) (Auto) 4, Basophils (%) (Auto) 1, Neutrophils # (Auto) 4.3, Lymphocytes # (Auto) 0.7L, Monocytes # (Auto) 0.4, Eosinophils # (Auto) 0.2, Basophils # (Auto) 0.0, Immature Granulocyte # (Auto) 0.0, Sodium Level 139, Potassium Level 3.8, Chloride Level 103, Carbon Dioxide Level 26, Anion Gap 10, Blood Urea Nitrogen 7, Creatinine 0.66, Estimat Glomerular Filtration Rate 89, BUN/Creatinine Ratio 11, Glucose Level 205H, Calcium Level 8.1L, Corrected Calcium 9.2, Magnesium Level 1.6, Total Bilirubin 0.3, Aspartate Amino Transf (AST/SGOT) 10, Alanine Aminotransferase (ALT/SGPT) 10, Alkaline Phosphatase 52, Total Protein 4.6L, Albumin 2.6L Microbiology 12/25/21 MRSA Screen - Final, Complete MRSA not isolated Assessment/Plan Assessment/Plan Assess & Plan/Chief Complaint S/p subtotal colectomy w/ileorectal anastamosis POD #5 Colon cancer Post op care in coordination with her surgeon, Dr. Parks Receiving IV fluids LR 75cc/hr Continue pain management - currently somewhat controlled T2DM Receiving Novolog (sliding scale) HTN Restarted home meds Delerium Mild, received 2mg haloperidol last night. Dementia Postop urinary retention requiring Benítez catheter placement again- started Urecholine 3 days ago DVT PPX: Lovenox JAMES BOWDEN DO Dec 30, 2021 06:53
[2021-12-30] MEDS: HYDROcodone/APAP 5 MG/325 MG (LORTAB) TAB PO PRN ×3 (06:59→20:54)
[2021-12-30] MEDS: ENOXAPARIN 40 MG/0.4 ML (LOVENOX) SYR SC SCH (08:33)
--- NOTE | 2021-12-30 08:43 | Physical Therapy Progress Note ---
Therapy Progress Note Patient refused treatment reporting she has been vomiting this morning and is still nauseated. Will attempt treatment again tomorrow. MAUREEN DÍAZ PT Dec 30, 2021 08:43
[2021-12-30] MEDS: ONDANSETRON 4 MG/2 ML (SDV) Z0FRAN IVP PRN ×2 (08:56→20:35)
--- NOTE | 2021-12-30 09:24 | Progress Note - Surgery ---
LEXX CASTILLO 12/30/21 0924: Subjective Date Seen by a Provider: Dec 30, 2021 Time Seen by a Provider: 08:00 Subjective/Events-last exam Patient says she is feeling "lousy" today. She is experiencing almost constant nausea and claimed she was about to throw up several times when I was with her i n the room. She had three episodes of emesis last night and describes them as "foamy clear liquid". She still has the hoffman in. She did ambulate to the chair yesterday which made her feel much better. She has still not had a BM, but endorses having flatus. She is not using the IS because she is worried about throwing up. She is still on a clear diet. Review of Systems General: No Chills; Night Sweats, Fatigue HEENT: Head Aches, Sore Throat (from throwing up) Pulmonary: No Dyspnea, No Cough Cardiovascular: Lt Headedness (transient episode in the middle of the night, not present now); No: Chest Pain Gastrointestinal: Nausea, Vomiting, Other (denies abdominal pain but says it is more of a pressure); No: Abdominal Pain Genitourinary: No Dysuria, No Hematuria; Other (no pain from hoffman) Musculoskeletal: leg pain; No: back pain Neurological: Weakness, Confusion Objective Exam Vital Signs Date Time Temp Pulse Resp B/P (MAP) Pulse Ox O2 Delivery O2 Flow Rate FiO2 12/30/21 07:46 106 150/70 (96) 12/30/21 07:30 37.1 108 20 167/79 (108) 91 Room Air 12/30/21 07:21 Nasal Cannula 3.00 12/30/21 03:49 36.7 100 16 158/77 (104) 97 Nasal Cannula 3.00 12/29/21 23:41 36.9 103 16 152/83 (106) 97 Nasal Cannula 3.00 12/29/21 22:04 92 Nasal Cannula 3.00 12/29/21 20:19 36.7 101 19 150/82 (104) 94 Nasal Cannula 3.00 12/29/21 20:06 Nasal Cannula 3.00 12/29/21 16:14 36.7 103 20 151/66 (94) 99 Nasal Cannula 3.00 12/29/21 15:37 94 Room Air 12/29/21 12:08 36.6 103 143/67 (92) 97 Nasal Cannula 3.00 I & O 12/30/21 07:00 Intake Total 2655 ml Output Total 725 ml Balance 1930 ml Capillary Refill : General Appearance: Chronically ill, Mild Distress (associated with constant nausea), Obese HEENT: PERRL/EOMI, Moist Mucous Membranes Neck: Non Tender, Supple Respiratory: Lungs Clear, Normal Breath Sounds, No Accessory Muscle Use, No Respiratory Distress Cardiovascular: Regular Rate, Rhythm, No Murmur Peripheral Pulses: 2+ Dorsalis Pedis (R), 2+ Left Dors-Pedis (L), 2+ Radial Pulses (R), 2+ Radial Pulses (L) Gastrointestinal: normal bowel sounds, soft, distended, tenderness (diffusely tender to light palpation), other (dressings over incisions were clean, no drainage) Extremity: Calf Tenderness, Pedal Edema (2+ b/l) Neurologic/Psychiatric: Depressed Affect, Disoriented Skin: Warm/Dry, Other (old scabs on right UE, multiple moles on chest) Lymphatic: No Adenopathy Results Lab Laboratory Tests 12/29/21 11:32: Glucometer 185H 12/29/21 16:17: Glucometer 198H 12/29/21 20:24: Glucometer 171H 12/30/21 05:22: Glucometer 180H 12/30/21 05:55: White Blood Count 5.7, Red Blood Count 3.40L, Hemoglobin 9.0L, Hematocrit 28L, Mean Corpuscular Volume 83, Mean Corpuscular Hemoglobin 27, Mean Corpuscular Hemoglobin Concent 32, Red Cell Distribution Width 13.4, Platelet Count 272, Mean Platelet Volume 8.7L, Immature Granulocyte % (Auto) 1, Neutrophils (%) (Auto) 75, Lymphocytes (%) (Auto) 13, Monocytes (%) (Auto) 7, Eosinophils (%) (Auto) 4, Basophils (%) (Auto) 1, Neutrophils # (Auto) 4.3, Lymphocytes # (Auto) 0.7L, Monocytes # (Auto) 0.4, Eosinophils # (Auto) 0.2, Basophils # (Auto) 0.0, Immature Granulocyte # (Auto) 0.0, Sodium Level 139, Potassium Level 3.8, Chloride Level 103, Carbon Dioxide Level 26, Anion Gap 10, Blood Urea Nitrogen 7, Creatinine 0.66, Estimat Glomerular Filtration Rate 89, BUN/Creatinine Ratio 11, Glucose Level 205H, Calcium Level 8.1L, Corrected Calcium 9.2, Magnesium Level 1.6, Total Bilirubin 0.3, Aspartate Amino Transf (AST/SGOT) 10, Alanine Aminotransferase (ALT/SGPT) 10, Alkaline Phosphatase 52, Total Protein 4.6L, Albumin 2.6L Microbiology 12/25/21 MRSA Screen - Final, Complete MRSA not isolated Assessment/Plan Assessment/Plan Assessment/Plan S/P subtotal colectomy Colon cancer Encourage patient to ambulate to chair and use IS as much as possible. Continue clear liquid diet, hoffman and IV morphine for pain control. Increase IV zofran to q2H for patients worsening nausea. MYNOR CAMPOS DO 12/30/21 1007: Subjective Time Seen by a Provider: 09:39 Subjective/Events-last exam Pt seen and examined, had a lot of vomiting last night and still has some nausea. She thinks her belly is distended, denies BM but small flatus. Review of Systems General: No Chills; Night Sweats, Fatigue HEENT: Head Aches Pulmonary: No Dyspnea, No Cough Cardiovascular: No: Chest Pain Gastrointestinal: Nausea, Vomiting, Abdominal Pain ("pressure") Neurological: Weakness, Confusion Objective Exam General Appearance: Chronically ill, Mild Distress (associated with constant nausea), Obese HEENT: PERRL/EOMI, Moist Mucous Membranes Respiratory: Lungs Clear, Normal Breath Sounds, No Accessory Muscle Use, No Respiratory Distress Cardiovascular: Regular Rate, Rhythm, No Murmur Gastrointestinal: normal bowel sounds, soft, distended, tenderness (diffusely tender to light palpation), other ( incisions were clean, dry and intact) Assessment/Plan Assessment/Plan Assessment/Plan S/P subtotal colectomy Colon cancer N/V Told pt to only take small sips of clears; it is not moving through like it should. Pt encouraged to ambulate (at least to chair), chew gum (which should help with bowel function) and use IS as much as possible. Continue hoffman and IV morphine for pain control. Increase IV zofran to q2H for patients worsening [place]. Supervisory-Addendum Brief Verification & Attestation Participated in pt care: history, MDM, physical Personally performed: exam, history, MDM, supervision of care Care discussed with: Medical Student Procedures: n/a Verification and Attestation of Medical Student E/M Service A medical student performed and documented this service. I then reviewed and verified all information documented by the medical student and made modifications to such information, when appropriate. I personally performed a physical exam, medical decision making and then discussed any differences between the notes and made revisions as necessary to create one note. Mynor Campos , 12/30/21 , 10:07 LEXX CASTILLO Dec 30, 2021 09:24 MYNOR CAMPOS DO Dec 30, 2021 10:07
--- NOTE | 2021-12-30 12:34 | Occ Therapy Progress Note ---
Therapy Progress Note Pt pleasantly declined therapy. Pt and stated that pt has been nauseated and vomiting throughout this morning. VALENTINE educated pt on OT services and pt continued to decline therapy. Will attempt at next available time. 1 refusal BLANCA MO Dec 30, 2021 12:34
[2021-12-30] MEDS ORDERED: RT-ALBUTEROL/IPRATROPIUM 3 ML (DUONEB) VIAL INH PRN (14:15)
[2021-12-30] MEDS ORDERED: amLODIPine 5 MG (NORVASC) TAB PO NR (16:30)
[2021-12-30] MEDS: morphine INJ 4 MG/ML 1 ML (VIAL/SYRINGE) IV PRN (23:47)
[2021-12-31] VITALS (10 sets, daily range): BP systolic 144–193; BP diastolic 64–82
[2021-12-31] MEDS: ONDANSETRON 4 MG/2 ML (SDV) Z0FRAN IVP PRN ×2 (02:55→09:35)
[2021-12-31] MEDS: morphine INJ 4 MG/ML 1 ML (VIAL/SYRINGE) IV PRN ×4 (02:56→18:28)
[2021-12-31] MEDS: LACTATED RINGERS 1,000 ML IV SCH ×2 (03:23→18:20)
[2021-12-31 05:39] LABS: BASOPHILS # (AUTO) 0.1 10^3/uL (0.0-0.1); BASOPHILS % (AUTO) 1 % (0-10); EOSINOPHILS % (AUTO) 1 % (0-10); HEMATOCRIT 28 % (35-52); HEMOGLOBIN 8.8 g/dL (11.5-16.0); LYMPHOCYTES # (AUTO) 0.6 10^3/uL (1.0-4.0); LYMPHOCYTES % (AUTO) 9 % (12-44); MEAN CORPUSCULAR HEMOGLOBIN 26 pg (25-34); MEAN CORPUSCULAR HGB CONC 32 g/dL (32-36); MEAN CORPUSCULAR VOLUME 83 fL (80-99); MEAN PLATELET VOLUME 8.8 fL (9.0-12.2); MONOCYTES # (AUTO) 0.3 10^3/uL (0.0-1.0); MONOCYTES % (AUTO) 4 % (0-12); NEUTROPHILS # (AUTO) 5.8 10^3/uL (1.8-7.8); NEUTROPHILS % (AUTO) 85 % (42-75); PLATELET COUNT 276 10^3/uL (130-400); WHITE BLOOD COUNT 6.8 10^3/uL (4.3-11.0)
[2021-12-31 05:48] LABS: ALBUMIN 2.6 GM/DL (3.2-4.5); POTASSIUM 3.9 MMOL/L (3.6-5.0)
[2021-12-31 05:49] LABS: CALCIUM 8.1 MG/DL (8.5-10.1)
[2021-12-31 05:50] LABS: TOTAL PROTEIN 4.5 GM/DL (6.4-8.2)
[2021-12-31 05:52] LABS: BILIRUBIN,TOTAL 0.2 MG/DL (0.1-1.0)
[2021-12-31 05:54] LABS: CREATININE SERUM 0.62 MG/DL (0.60-1.30)
[2021-12-31] MEDS: PANTOPRAZOLE 40 MG (PROTONIX) TAB PO SCH (06:45)
[2021-12-31] MEDS: BETHANECHOL 25 MG (URECHOLINE) TAB PO SCH ×4 (06:45→20:39)
[2021-12-31] MEDS: inSUlin ASPART (NovoLOG) 1 UNIT/0.01 ML (CHARGE PER UNIT) SC SCH ×4 (06:45→20:39)
--- NOTE | 2021-12-31 07:02 | Progress Note - Surgery ---
DARREN SILVA 12/31/21 0702: Subjective Date Seen by a Provider: Dec 31, 2021 Time Seen by a Provider: 06:57 Subjective/Events-last exam Patient is awake and alert this morning, in no acute distress. Patient reports that her nausea is much better today. Per RN, the patient was nauseous yesterday evening while eating and had some emesis. The patient reports ambulating at least to the chair. Patient reports passing flatus but no BM. Patient's abdomen is distended and has some pain on palpation in the RLQ. Review of Systems General: No Chills, No Night Sweats HEENT: No Head Aches, No Visual Changes Pulmonary: No Dyspnea, No Cough Cardiovascular: No: Chest Pain, Palpitations Gastrointestinal: Nausea, Abdominal Pain (Pain on palpation in RLQ), Constipation Genitourinary: No Dysuria, No Frequency Musculoskeletal: No: neck pain, shoulder pain Neurological: No: Change in speech, Confusion Objective Exam Vital Signs Date Time Temp Pulse Resp B/P (MAP) Pulse Ox O2 Delivery O2 Flow Rate FiO2 12/31/21 04:00 37.1 107 18 173/70 (104) 97 Nasal Cannula 2.00 12/31/21 00:10 36.7 109 20 179/80 (113) 93 Nasal Cannula 2.00 12/30/21 21:12 Nasal Cannula 3.00 12/30/21 20:40 Nasal Cannula 2.00 12/30/21 20:01 36.9 98 20 171/83 (112) 96 Nasal Cannula 2.00 12/30/21 16:31 36.5 96 20 140/79 (99) 95 Nasal Cannula 2.00 12/30/21 14:09 36.7 101 93 12/30/21 11:35 36.7 101 18 149/82 (104) 93 Nasal Cannula 2.00 12/30/21 07:46 106 150/70 (96) 12/30/21 07:30 37.1 108 20 167/79 (108) 91 Room Air 12/30/21 07:21 Nasal Cannula 3.00 I & O 12/31/21 07:00 Intake Total 375 ml Output Total 575 ml Balance -200 ml Capillary Refill : General Appearance: Chronically ill, Mild Distress (associated with constant nausea), Obese HEENT: PERRL/EOMI, Moist Mucous Membranes Neck: Non Tender, Supple Respiratory: Lungs Clear, Normal Breath Sounds, No Accessory Muscle Use, No Respiratory Distress Cardiovascular: No Murmur, Tachycardia Peripheral Pulses: 2+ Dorsalis Pedis (R), 2+ Left Dors-Pedis (L), 2+ Radial Pulses (R), 2+ Radial Pulses (L) Gastrointestinal: normal bowel sounds, soft, distended, tenderness (diffusely tender to light palpation), other ( incisions were clean, dry and intact) Extremity: Calf Tenderness, Pedal Edema (2+ b/l) Neurologic/Psychiatric: Depressed Affect, Disoriented Skin: Warm/Dry, Other (old scabs on right UE, multiple moles on chest) Lymphatic: No Adenopathy Results Lab Laboratory Tests 12/30/21 11:17: Glucometer 198H 12/30/21 16:01: Glucometer 148H 12/30/21 20:27: Glucometer 171H 12/31/21 05:21: Glucometer 217H 12/31/21 05:30: White Blood Count 6.8, Red Blood Count 3.35L, Hemoglobin 8.8L, Hematocrit 28L, Mean Corpuscular Volume 83, Mean Corpuscular Hemoglobin 26, Mean Corpuscular Hemoglobin Concent 32, Red Cell Distribution Width 13.2, Platelet Count 276, Mean Platelet Volume 8.8L, Immature Granulocyte % (Auto) 1, Neutrophils (%) (Auto) 85H, Lymphocytes (%) (Auto) 9L, Monocytes (%) (Auto) 4, Eosinophils (%) (Auto) 1, Basophils (%) (Auto) 1, Neutrophils # (Auto) 5.8, Lymphocytes # (Auto) 0.6L, Monocytes # (Auto) 0.3, Eosinophils # (Auto) 0.0, Basophils # (Auto) 0.1, Immature Granulocyte # (Auto) 0.1, Sodium Level 138, Potassium Level 3.9, Chloride Level 102, Carbon Dioxide Level 26, Anion Gap 10, Blood Urea Nitrogen 9, Creatinine 0.62, Estimat Glomerular Filtration Rate 91, BUN/Creatinine Ratio 15, Glucose Level 217H, Calcium Level 8.1L, Corrected Calcium 9.2, Magnesium Level 1.5L, Total Bilirubin 0.2, Aspartate Amino Transf (AST/SGOT) 12, Alanine Aminotransferase (ALT/SGPT) 10, Alkaline Phosphatase 54, Total Protein 4.5L, Albumin 2.6L Microbiology 12/25/21 MRSA Screen - Final, Complete MRSA not isolated Assessment/Plan Assessment/Plan Assessment/Plan S/p subtotal colectomy w/ileorectal anastamosis POD #6 Colon cancer N/V Postop urinary retention Obesity Pt has been taking only small sips of clears. Pt encouraged to ambulate (at least to chair), chew gum (which should help with bowel function) and use IS as much as possible. Continue hoffman catheter. Continue IV morphine for pain control. Continue IV zofran at q2H for nausea. S/p subtotal colectomy w/ileorectal anastamosis POD #6 KEERTHI PARKS DO 12/31/21 1716: Subjective Subjective/Events-last exam Up in chair. No emesis today. Nausea improved. Reports passing flatus. Amputated with PT a little today, refusing earlier. Denies fever sweats chills shortness of breath or chest pain. Objective Exam General Appearance: No Apparent Distress, Chronically ill, Obese HEENT: PERRL/EOMI, Normal ENT Inspection Neck: Non Tender, Supple Respiratory: Chest Non Tender, No Accessory Muscle Use, No Respiratory Distress Cardiovascular: Regular Rate, Rhythm, No JVD Gastrointestinal: soft, tenderness (incisional), other ( incisions were clean, dry and intact) Neurologic/Psychiatric: Alert; No Oriented x3; Disoriented Skin: Warm/Dry Lymphatic: No Adenopathy Assessment/Plan Assessment/Plan Assessment/Plan S/p subtotal colectomy w/ileorectal anastamosis Colon cancer N/V Postop urinary retention Obesity Postop ileus Clears as tolerates Pt encouraged to ambulate TID and work with PT. Also discussed with nursing. chew gum (which should help with bowel function) and use IS as much as possible. Continue hoffman cathete for accurate i/0 Continue IV morphine for pain control. Continue IV zofran at q2H for nausea. Increased IV fluids to 100 ml per hr. S/p subtotal colectomy w/ileorectal anastamosis POD #6 Supervisory-Addendum Brief Verification & Attestation Participated in pt care: history, MDM, physical Personally performed: exam, history, MDM, supervision of care Care discussed with: Medical Student Procedures: n/a Results interpretation: Verified all documentation Verification and Attestation of Medical Student E/M Service A medical student performed and documented this service in my presence. I reviewed and verified all information documented by the medical student and made modifications to such information, when appropriate. I personally performed the physical exam and medical decision making. Keerthi Parks, Dec 31, 2021,17:16 DARREN SILVA Dec 31, 2021 07:02 KEERTHI PARKS DO Dec 31, 2021 17:16
[2021-12-31] MEDS: ENOXAPARIN 40 MG/0.4 ML (LOVENOX) SYR SC SCH (08:26)
[2021-12-31] MEDS: amLODIPine 5 MG (NORVASC) TAB PO SCH (08:26)
--- NOTE | 2021-12-31 10:15 | Physical Therapy Daily Note ---
PT Daily Note-Current Subjective Patient initially declined PT due to abdominal pain. After much encouragement, Patient agrees. Pain Numeric Pain Scale: 10-Worst Possible Pain Location: Medial, Lower Location Body Site: Abdomen Pain Description: Pressure, Sharp Comment: RN notified Mental Status Attachments: Benítez Catheter, IV Transfers SCALE: Activities may be completed with or without assistive devices. 6-Rtogrohygj-buujsex completes the activity by him/herself with no assistance from a helper. 5-Set-up or Clean-up Assistance-helper sets up or cleans up; patient completes activity. [place] assists only prior to or following the activity. 4-Supervision or Touching Assistance-helper provides verbal cues and/or touching/steadying and/or contact guard assistance as patient completes activity. Assistance may be provided throughout the activity or intermittently. 3-Partial/Moderate Assistance-helper does LESS THAN HALF the effort. [place] lifts, holds or supports trunk or limbs, but provides less than half the effort. 2-Substantial/Maximal Assistance-helper does MORE THAN HALF the effort. [place] lifts or holds trunk or limbs and provides more than half the effort. 1-Odbhytzlp-jvpbhv does ALL the effort. Patient does none of the effort to complete the activity. Or, the assistance of 2 or more helpers is required for the patient to complete the activity. If activity was not attempted, code reason: 7-Patient Refused. 9-Not Applicable-not attempted and the patient did not perform the activity before the current illness, exacerbation or injury. 10-Not Attempted due to Environmental Limitations-(lack of equipment, weather restraints, etc.). 88-Not Attempted due to Medical Conditions or Safety Concerns. Lying to Sitting/Side of Bed(Q: 2 Sit to Stand (QC): 2 Chair/Zpy-fj-Nvvfm Xfer(QC): 2 Weight Bearing Right Lower Extremity: Right Weight Bearing/Tolerated Left Lower Extremity: Left Weight Bearing/Tolerated Gait Training Distance: 15' Walk 10 feet (QC): 2 Walk 50 ft with 2 Turns(QC): 88 Walk 150 ft (QC): 88 Gait Assistive Device: FWW very slow, shuffle gait sequence Exercises Seated Therapy Exercises: Ankle pumps, Long arc quads, Hip flexion Seated Reps: 12 Assessment Patient requires time and encouragement to complete all functional tasks. Patient continues to c/o severe abdominal pain and vomits after consuming liquids. PT to increase activity as tolerated and allow by patient. PT [employer] Marker Goals Long-Term Goals PT [employer] Goals Time Frame: Jan 18, 2022 Roll Left & Right (QC): 4 Sit to Lying (QC): 4 Lying-Sitting on Side/Bed(QC): 4 Sit to Stand (QC): 4 Chair/Ata-cb-Akktp Xfer(QC): 4 Toilet Transfer (QC): 4 Walk 10 feet (QC): 4 Walk 50ft with 2 Turns (QC): 4 Walk 150 ft (QC): 4 PT Plan Treatment/Plan Treatment Plan: Continue Plan of Care Treatment Plan: Bed Mobility, Education, Functional Activity Pat, Functional Strength, Gait, Safety, Therapeutic Exercise, Transfers Treatment Duration: Jan 18, 2022 Frequency: 6 times per week Estimated Hrs Per Day: .25 hour per day Time/GCodes Time In: 800 Time Out: 823 Total Billed Treatment Time: 23 Total Billed Treatment 1 visit FA x 2 23 min BAILEY CHÁVEZ PT Dec 31, 2021 10:15
--- NOTE | 2021-12-31 10:44 | Progress Note ---
ASHANTI WATTS 12/31/21 1044: Subjective Date Seen by a Provider: Dec 31, 2021 Time Seen by a Provider: 10:42 Subjective/Events-last exam Patient reports no pain at this time. Being managed well with her current pain regimen. Abdominal pain has subsided for now. Denies any nausea or vomiting today. Still no bowel movement today. Labs reviewed Denied PT this morning, but was willing to try this afternoon. Objective Exam Last Set of Vital Signs Vital Signs Date Time Temp Pulse Resp B/P (MAP) Pulse Ox O2 Delivery O2 Flow Rate FiO2 12/31/21 07:50 146/72 (96) 12/31/21 07:37 36.9 100 18 95 Nasal Cannula 2.00 12/28/21 09:13 32 Capillary Refill : I&O Intake and Output 12/31/21 00:00 Intake Total 500 ml Output Total 525 ml Balance -25 ml Intake Oral 500 ml Output Urine Total 525 ml # [place] 2 General: Alert, No Acute Distress HEENT: Mucous Memb Moist/[place] Neck: Supple, No JVD Lungs: Clear to Auscultation Heart: Normal S1, Normal S2, No Murmurs Abdomen: Normal Bowel Sounds, Soft Extremities: No Clubbing, Normal Pulses Skin: No Breakdown, No Significant Lesion Neuro: Normal Tone, Sensation Intact Psych/Mental Status: Other (Alert to person and place. Is still asking why she is at hospital. Confusion is worsening slightly per nurse.) Results Lab Laboratory Tests 12/30/21 11:17: Glucometer 198H 12/30/21 16:01: Glucometer 148H 12/30/21 20:27: Glucometer 171H 12/31/21 05:21: Glucometer 217H 12/31/21 05:30: White Blood Count 6.8, Red Blood Count 3.35L, Hemoglobin 8.8L, Hematocrit 28L, Mean Corpuscular Volume 83, Mean Corpuscular Hemoglobin 26, Mean Corpuscular Hemoglobin Concent 32, Red Cell Distribution Width 13.2, Platelet Count 276, Mean Platelet Volume 8.8L, Immature Granulocyte % (Auto) 1, Neutrophils (%) ( Auto) 85H, Lymphocytes (%) (Auto) 9L, Monocytes (%) (Auto) 4, Eosinophils (%) (Auto) 1, Basophils (%) (Auto) 1, Neutrophils # (Auto) 5.8, Lymphocytes # (Auto) 0.6L, Monocytes # (Auto) 0.3, Eosinophils # (Auto) 0.0, Basophils # (Auto) 0.1, Immature Granulocyte # (Auto) 0.1, Sodium Level 138, Potassium Level 3.9, Chloride Level 102, Carbon Dioxide Level 26, Anion Gap 10, Blood Urea Nitrogen 9, Creatinine 0.62, Estimat Glomerular Filtration Rate 91, BUN/Creatinine Ratio 15, Glucose Level 217H, Calcium Level 8.1L, Corrected Calcium 9.2, Magnesium Level 1.5L, Total Bilirubin 0.2, Aspartate Amino Transf (AST/SGOT) 12, Alanine Aminotransferase (ALT/SGPT) 10, Alkaline Phosphatase 54, Total Protein 4.5L, Albumin 2.6L 12/31/21 10:23: Glucometer 140H Microbiology 12/25/21 MRSA Screen - Final, Complete MRSA not isolated Assessment/Plan Assessment/Plan Assess & Plan/Chief Complaint S/p subtotal colectomy w/ileorectal anastamosis POD #5 Colon cancer Post op care in coordination with her surgeon, Dr. Parks Receiving IV fluids LR 75cc/hr Continue pain management - well controlled at this time T2DM Receiving Novolog (sliding scale) HTN Restarted home meds Dementia Postop urinary retention requiring Benítez catheter placement again- started Urecholine 3 days ago DVT PPX: Lovenox Physical Therapy MAYRA BOWDEN DO 12/31/212025: Subjective Subjective/Events-last exam No major issues No pain today Walking slowly with PT Review of Systems General: Fatigue, Malaise Objective Exam General: Alert, Oriented X3, Cooperative, No Acute Distress Lungs: Clear to Auscultation, Normal Air Movement Heart: Regular Rate, Normal S1, Normal S2, No Murmurs Psych/Mental Status: Mood NL, Other (Alert to person and place. Is still asking why she is at hospital. Confusion is worsening slightly per nurse.) Assessment/Plan Assessment/Plan Assess & Plan/Chief Complaint Monitor confusion Supervisory-Addendum Brief Verification & Attestation Participated in pt care: history, MDM, physical Personally performed: exam, history, MDM, supervision of care Care discussed with: Medical Student Procedures: n/a Results interpretation: Verified all documentation Verification and Attestation of Medical Student E/M Service A medical student performed and documented this service in my presence. I reviewed and verified all information documented by the medical student and made modifications to such information, when appropriate. I personally performed the physical exam and medical decision making. Mayra Bowden, Dec 31, 2021,20:25 ASHANTI WATTS Dec 31, 2021 10:44 MAYRA BOWDEN DO Dec 31, 2021 20:26
--- NOTE | 2021-12-31 12:46 | Occupational Ther Daily Note ---
OT Current Status-Daily Note Subjective Pt alert, sitting in recliner. Pt requires mod encouragement to participate in OT session. Pt c/o pain with all movement. Mental Status/Objective Patient Orientation: Person, Place, Time, Situation Attachments: Benítez Catheter, IV, Oxygen ADL-Treatment Encouragement to work on sit to stand then in standing complete oral care. Pt took increased time to complete sit to stand, mod A for sit to stand then CGA while in standing using FWW(stood ~3 min). Pt requested to sit down before co mpleting oral care. Pt sat up in recliner without back support to complete oral care by self after supplies were gathered. Assist x2 to scoot pt back into chair. After session, nrsg in room. Call light/phone in reach. All needs met in room. Therapy Code Descriptions/Definitions Functional [place] Measure: 0=Not Assessed/NA 4=Minimal Assistance 1=Total Assistance 5=Supervision or Setup 2=Maximal Assistance 6=Modified [place] 3=Moderate Assistance 7=Complete IndependenceSCALE: Activities may be completed with or without assistive devices. 5-Pesaavdkam-lrzfjpd completes the activity by him/herself with no assistance from a helper. 5-Set-up or Clean-up Assistance-helper sets up or cleans up; patient completes activity. [place] assists only prior to or following the activity. 4-Supervision or Touching Assistance-helper provides verbal cues and/or touching/steadying and/or contact guard assistance as patient completes activity. Assistance may be provided throughout the activity or intermittently. 3-Partial/Moderate Assistance-helper does LESS THAN HALF the effort. [place] lifts, holds or supports trunk or limbs, but provides less than half the effort. 2-Substantial/Maximal Assistance-helper does MORE THAN HALF the effort. [place] lifts or holds trunk or limbs and provides more than half the effort. 7-Ctbhhkanl-ofvtrl does ALL the effort. Patient does none of the effort to complete the activity. Or, the assistance of 2 or more helpers is required for the patient to complete the activity. If activity was not attempted, code reason: 7-Patient Refused. 9-Not Applicable-not attempted and the patient did not perform the activity before the current illness, exacerbation or injury. 10-Not Attempted due to Environmental Limitations-(lack of equipment, weather restraints, etc.). 88-Not Attempted due to Medical Conditions or Safety Concerns. Oral Hygiene (QC): 5 OT Halfway Goals Halfway Goals Time Frame: Jan 10, 2022 Eating (QC): 5 Oral Hygiene (QC): 5 Toileting Hygiene (QC): 4 Shower/Bathe Self (QC): 4 Upper Body Dressing (QC): 5 Lower Body Dressing (QC): 4 On/Off Footwear (QC): 4 Additional Goals: 1-Demonstrate ADL Tasks, 2-Verbalize Understanding, 3-Improve Strength/Pat 1=Demonstrate adherence to instructed precautions during ADL tasks. 2=Patient will verbalize/demonstrate understanding of assistive devices/modifications for ADL. 3=Patient will improve strength/tolerance for activity to enable patient to pe rform ADL's. OT Education/Plan Problem List/Assessment Assessment: Decreased Activ Tolerance, Decreased UE Strength, Impaired Bed Mobility, Impaired Self-Care Skills Discharge Recommendations Plan/Recommendations: Continue POC Treatment Plan/Plan of Care Patient would benefit from OT for education, treatment and training to promote independence in ADL's, mobility, safety and/or upper extremity function for ADL's. Plan of Care: ADL Retraining, Functional Mobility, UE Funct Exercise/Act Treatment Duration: Jan 10, 2022 Frequency: 3 times per week (3-5 times per week) Rehab Potential: Guarded Time/GCodes Start Time: 10:00 Stop Time: 10:23 Total Time Billed (hr/min): 23 Billed Treatment Time 1 visit-FA 1 (15 min) ADL 1 (8 min) BLANCA MO Dec 31, 2021 12:46
[2022-01-01 03:35] VITALS: BP 176/82
[2022-01-01] MEDS: LACTATED RINGERS 1,000 ML IV SCH ×3 (03:40→21:09)
[2022-01-01 04:41] LABS: BASOPHILS % (AUTO) 0 % (0-10); EOSINOPHILS # (AUTO) 0.3 10^3/uL (0.0-0.3); EOSINOPHILS % (AUTO) 5 % (0-10); HEMATOCRIT 29 % (35-52); HEMOGLOBIN 9.3 g/dL (11.5-16.0); LYMPHOCYTES # (AUTO) 0.8 10^3/uL (1.0-4.0); LYMPHOCYTES % (AUTO) 15 % (12-44); MEAN CORPUSCULAR HEMOGLOBIN 26 pg (25-34); MEAN CORPUSCULAR HGB CONC 32 g/dL (32-36); MEAN CORPUSCULAR VOLUME 82 fL (80-99); MEAN PLATELET VOLUME 8.7 fL (9.0-12.2); MONOCYTES # (AUTO) 0.4 10^3/uL (0.0-1.0); MONOCYTES % (AUTO) 7 % (0-12); NEUTROPHILS # (AUTO) 3.9 10^3/uL (1.8-7.8); NEUTROPHILS % (AUTO) 72 % (42-75); PLATELET COUNT 260 10^3/uL (130-400); WHITE BLOOD COUNT 5.4 10^3/uL (4.3-11.0)
[2022-01-01 04:50] LABS: ALBUMIN 2.7 GM/DL (3.2-4.5); POTASSIUM 3.5 MMOL/L (3.6-5.0)
[2022-01-01 04:51] LABS: CALCIUM 8.2 MG/DL (8.5-10.1)
[2022-01-01 04:53] LABS: TOTAL PROTEIN 4.7 GM/DL (6.4-8.2)
[2022-01-01 04:54] LABS: BILIRUBIN,TOTAL 0.3 MG/DL (0.1-1.0)
[2022-01-01 04:56] LABS: CREATININE SERUM 0.6 MG/DL (0.60-1.30)
[2022-01-01] MEDS: inSUlin ASPART (NovoLOG) 1 UNIT/0.01 ML (CHARGE PER UNIT) SC SCH ×4 (05:18→20:53)
[2022-01-01] MEDS: PANTOPRAZOLE 40 MG (PROTONIX) TAB PO SCH (05:18)
[2022-01-01] MEDS: BETHANECHOL 25 MG (URECHOLINE) TAB PO SCH ×4 (05:18→20:01)
[2022-01-01 05:50] VITALS: BP 176/82
--- NOTE | 2022-01-01 06:38 | Progress Note - Surgery ---
DARREN SILVA 01/01/22 0638: Subjective Date Seen by a Provider: Jan 01, 2022 Time Seen by a Provider: 06:32 Subjective/Events-last exam Patient is awake and alert this morning. Patient reports feeling very nauseous but reports no emesis. Patient reports incisional abdominal pain and has tenderness to palpation throughout the abdomen. Patient reports passing some flatus, but no bowel movements. Patient was ambulating yesterday, but reports that she had to stop due to fatigue. Review of Systems General: Fatigue, Malaise HEENT: No Head Aches, No Visual Changes Pulmonary: No Dyspnea, No Cough Cardiovascular: No: Chest Pain, Palpitations Gastrointestinal: Nausea, Abdominal Pain (Incisional) Genitourinary: No Dysuria, No Frequency Musculoskeletal: No: neck pain, shoulder pain Neurological: Weakness; No: Numbness Objective Exam Vital Signs Date Time Temp Pulse Resp B/P (MAP) Pulse Ox O2 Delivery O2 Flow Rate FiO2 01/01/22 05:50 35.8 99 94 28 01/01/22 03:35 35.8 99 20 176/82 (113) 94 Nasal Cannula 2.00 01/01/22 00:52 Nasal Cannula 2.00 12/31/21 23:52 35.8 99 20 166/70 (102) 99 Nasal Cannula 2.00 12/31/21 20:00 Nasal Cannula 3.00 12/31/21 20:00 36.7 97 17 180/75 (110) 95 Nasal Cannula 2.00 12/31/21 16:04 36.1 99 17 144/64 (90) 98 Nasal Cannula 2.00 12/31/21 15:17 Nasal Cannula 2.00 12/31/21 11:59 36.2 102 20 145/66 (92) 100 Nasal Cannula 2.00 12/31/21 07:50 146/72 (96) 12/31/21 07:37 36.9 100 18 169/70 (103) 95 Nasal Cannula 2.00 12/31/21 07:18 Nasal Cannula 2.00 I & O 01/01/22 07:00 Intake Total 600 ml Output Total 450 ml Balance 150 ml Capillary Refill : General Appearance: No Apparent Distress, Chronically ill, Obese HEENT: PERRL/EOMI, Normal ENT Inspection Neck: Non Tender, Supple Respiratory: Chest Non Tender, No Accessory Muscle Use, No Respiratory Distress Cardiovascular: Regular Rate, Rhythm, No JVD Peripheral Pulses: 2+ Dorsalis Pedis (R), 2+ Left Dors-Pedis (L), 2+ Radial Pulses (R), 2+ Radial Pulses (L) Gastrointestinal: soft, tenderness (incisional), other ( incisions were clean, dry and intact) Extremity: Calf Tenderness, Pedal Edema (2+ b/l) Neurologic/Psychiatric: Alert; No Oriented x3; Disoriented Skin: Normal Color, Warm/Dry Lymphatic: No Adenopathy Results Lab Laboratory Tests 12/31/21 10:23: Glucometer 140H 12/31/21 15:27: Glucometer 173H 12/31/21 20:16: Glucometer 199H 01/01/22 04:30: White Blood Count 5.4, Red Blood Count 3.53L, Hemoglobin 9.3L, Hematocrit 29L, Mean Corpuscular Volume 82, Mean Corpuscular Hemoglobin 26, Mean Corpuscular Hemoglobin Concent 32, Red Cell Distribution Width 13.4, Platelet Count 260, Mean Platelet Volume 8.7L, Immature Granulocyte % (Auto) 1, Neutrophils (%) (Auto) 72, Lymphocytes (%) (Auto) 15, Monocytes (%) (Auto) 7, Eosinophils (%) (Auto) 5, Basophils (%) (Auto) 0, Neutrophils # (Auto) 3.9, Lymphocytes # (Auto) 0.8L, Monocytes # (Auto) 0.4, Eosinophils # (Auto) 0.3, Basophils # (Auto) 0.0, Immature Granulocyte # (Auto) 0.0, Sodium Level 140, Potassium Level 3.5L, Chloride Level 100, Carbon Dioxide Level 28, Anion Gap 12, Blood Urea Nitrogen 8, Creatinine 0.60, Estimat Glomerular Filtration Rate 91, BUN/Creatinine Ratio 13, Glucose Level 196H, Calcium Level 8.2L, Corrected Calcium 9.2, Magnesium Level 1.5L, Total Bilirubin 0.3, Aspartate Amino Transf (AST/SGOT) 12, Alanine Aminotransferase (ALT/SGPT) 10, Alkaline Phosphatase 55, Total Protein 4.7L, Albumin 2.7L Microbiology 12/25/21 MRSA Screen - Final, Complete MRSA not isolated Assessment/Plan Assessment/Plan Assessment/Plan S/p subtotal colectomy w/ileorectal anastamosis POD #7 Colon cancer N/V Postop urinary retention Obesity Postop ileus Pt has been taking only small sips of clears. Pt encouraged to continue working with PT to ambulate, chew gum (which should help with bowel function) and use IS as much as possible. Continue hoffman catheter. Continue IV morphine for pain control. Continue IV zofran at q2H for nausea. KEERTHI PARKS DO 01/01/22 1518: Subjective Subjective/Events-last exam Patient sitting in bed. More distended and had emesis. Abdominal pain in the upper abdomen from distention. No bm. Not ambulating much, only with PT. Denies fever sweats chills shortness of breath or chest pain. Urine output low. Objective Exam General Appearance: No Apparent Distress, Chronically ill, Obese HEENT: PERRL/EOMI, Normal ENT Inspection Neck: Full Range of Motion, Non Tender, Supple Respiratory: Chest Non Tender, No Accessory Muscle Use, No Respiratory Distress Cardiovascular: Regular Rate, Rhythm, No JVD Gastrointestinal: soft, tenderness (incisional), other ( incisions were clean, dry and intact) Extremity: Pedal Edema (2+ b/l) Neurologic/Psychiatric: Alert; No Oriented x3; Disoriented Skin: Normal Color, Warm/Dry Lymphatic: No Adenopathy Assessment/Plan Assessment/Plan Assessment/Plan S/p subtotal colectomy w/ileorectal anastamosis Colon cancer N/V Postop urinary retention Obesity Postop ileus Pt encouraged to continue working with PT to ambulate, chew gum (which should help with bowel function) and use IS as much as possible. Continue hoffman catheter for accurate i/o Continue IV morphine for pain control. Continue IV zofran at q2H for nausea. NG tube to decompress KUB Increase iv fluids since urine output low Supervisory-Addendum Brief Verification & Attestation Participated in pt care: history, MDM, physical Personally performed: exam, history, MDM, supervision of care Care discussed with: Medical Student Procedures: n/a Results interpretation: Verified all documentation Verification and Attestation of Medical Student E/M Service A medical student performed and documented this service in my presence. I revie wed and verified all information documented by the medical student and made modifications to such information, when appropriate. I personally performed the physical exam and medical decision making. Keerthi Parks, Jan 01, 2022,15:29 DARREN SILVA Jan 01, 2022 06:38 KEERTHI PARKS DO Jan 01, 2022 15:18
[2022-01-01] MEDS: amLODIPine 5 MG (NORVASC) TAB PO SCH (08:10)
[2022-01-01] MEDS: HYDROcodone/APAP 5 MG/325 MG (LORTAB) TAB PO PRN (08:10)
[2022-01-01] MEDS: ONDANSETRON 4 MG/2 ML (SDV) Z0FRAN IVP PRN (08:10)
[2022-01-01 08:43] VITALS: BP 189/85
[2022-01-01] MEDS: ENOXAPARIN 40 MG/0.4 ML (LOVENOX) SYR SC SCH (09:04)
--- NOTE | 2022-01-01 10:41 | Diagnostic Imaging Report ---
INDICATION: NG tube placement KUB 10:25 AM NG tube projects over the stomach. There is gaseous distention of small bowel consistent with obstruction. IMPRESSION: Small bowel obstruction. NG tube appears to be in the stomach. Dictated by: Dictated on workstation # [id number]
--- NOTE | 2022-01-01 11:23 | Physical Therapy Progress Note ---
Therapy Progress Note Patient just got an NG tube put in and has been vomiting. Patient is refusing therapy today. Will check back tomorrow. EMIL NOWAK PT Jan 01, 2022 11:23
[2022-01-01] MEDS ORDERED: CHLORASEPTIC SPRAY 177 ML LIQUID MC PRN (11:30)
[2022-01-01 12:00] VITALS: BP 196/84
--- NOTE | 2022-01-01 12:01 | Occ Therapy Progress Note ---
Therapy Progress Note Pt returned from procedure and was nauseated. Physician in room and requested for nrsg. SERGE assisted nrsg with pt and to set up pt for oral suction to assist with spitting out secretions. Pt then declined to participate in skilled therapy due to anxiety, nausea and exhaustion. Will attempt tomorrow. 1 visit- [id number] refusal BLANCA MO Jan 01, 2022 12:01
--- NOTE | 2022-01-01 13:16 | Progress Note ---
ASHANTI WATTS 01/01/22 1316: Subjective Date Seen by a Provider: Jan 01, 2022 Time Seen by a Provider: 13:11 Subjective/Events-last exam Patient having increased pain today, in both abdomen and right arm Increased nausea and vomiting. In addition to vomit, patient has been having reflux of sputum and phlegm. Still no bowel movement today. Labs reviewed Objective Exam Last Set of Vital Signs Vital Signs Date Time Temp Pulse Resp B/P (MAP) Pulse Ox O2 Delivery O2 Flow Rate FiO2 01/01/22 12:00 36.8 105 19 196/84 (121) 95 Nasal Cannula 2.00 01/01/22 05:50 28 Capillary Refill : I&O Intake and Output 01/01/22 00:00 Intake Total 375 ml Output Total 500 ml Balance -125 ml Intake Oral 375 ml Output Urine Total 500 ml General: Alert, Cooperative, Mild Distress HEENT: Atraumatic, PERRLA Neck: Supple, No JVD Lungs: Clear to Auscultation Heart: Normal S1, Normal S2, No Murmurs Abdomen: Soft, No Tenderness Extremities: No Clubbing, No Cyanosis Skin: No Breakdown, No Significant Lesion Neuro: Normal Speech, Sensation Intact Results Lab Laboratory Tests 12/31/21 15:27: Glucometer 173H 12/31/21 20:16: Glucometer 199H 01/01/22 04:30: White Blood Count 5.4, Red Blood Count 3.53L, Hemoglobin 9.3L, Hematocrit 29L, Mean Corpuscular Volume 82, Mean Corpuscular Hemoglobin 26, Mean Corpuscular Hemoglobin Concent 32, Red Cell Distribution Width 13.4, Platelet Count 260, Mean Platelet Volume 8.7L, Immature Granulocyte % (Auto) 1, Neutrophils (%) (Auto) 72, Lymphocytes (%) (Auto) 15, Monocytes (%) (Auto) 7, Eosinophils (%) (Auto) 5, Basophils (%) (Auto) 0, Neutrophils # (Auto) 3.9, Lymphocytes # (Auto) 0.8L, Monocytes # (Auto) 0.4, Eosinophils # (Auto) 0.3, Basophils # (Auto) 0.0, Immature Granulocyte # (Auto) 0.0, Sodium Level 140, Potassium Level 3.5L, Chloride Level 100, Carbon Dioxide Level 28, Anion Gap 12, Blood Urea Nitrogen 8, Creatinine 0.60, Estimat Glomerular Filtration Rate 91, BUN/Creatinine Ratio 13, Glucose Level 196H, Calcium Level 8.2L, Corrected Calcium 9.2, Magnesium Level 1.5L, Total Bilirubin 0.3, Aspartate Amino Transf (AST/SGOT) 12, Alanine Aminotransferase (ALT/SGPT) 10, Alkaline Phosphatase 55, Total Protein 4.7L, Albumin 2.7L 01/01/22 11:17: Glucometer 161H Microbiology 12/25/21 MRSA Screen - Final, Complete MRSA not isolated Assessment/Plan Assessment/Plan Assess & Plan/Chief Complaint Small bowel obstruction- Found today on Xray (01-01-2022) NG tube placed S/p subtotal colectomy w/ileorectal anastamosis POD #7 Monitor labs Monitor hydration Consult surgery Colon cancer Post op care in coordination with her surgeon, Dr. Parks Receiving IV fluids LR 75cc/hr Continue pain management - well controlled at this time T2DM Receiving Novolog (sliding scale) HTN Restarted home meds Dementia Postop urinary retention requiring Benítez catheter placement again- started Urecholine 3 days ago DVT PPX: Lovenox Physical Therapy Will evaluate ability to perform considering new onset abdominal pain due to SBO MAYRA BOWDEN DO 01/01/222035: Subjective Subjective/Events-last exam Pt having more abdominal pain and required an NG tube for small bowel obstruction PT was working with her is at the bedside Long recovery expected Objective Exam General: Alert, Cooperative, Mild Distress Lungs: Clear to Auscultation Psych/Mental Status: Other (mild confusion) Assessment/Plan Assessment/Plan Assess & Plan/Chief Complaint Supportive care Supervisory-Addendum Brief Verification & Attestation Participated in pt care: history, MDM, physical Personally performed: exam, history, MDM, supervision of care Care discussed with: Medical Student Procedures: n/a Results interpretation: Verified all documentation Verification and Attestation of Medical Student E/M Service A medical student performed and documented this service in my presence. I reviewed and verified all information documented by the medical student and made modifications to such information, when appropriate. I personally performed the physical exam and medical decision making. Mayra Bowden Jan 01, 2022,20:35 ASHANTI WATTS Jan 01, 2022 13:16 MAYRA BOWDEN DO Jan 01, 2022 20:36
[2022-01-01 16:07] VITALS: BP 170/70
[2022-01-01 20:01] VITALS: BP 171/75
[2022-01-02 00:21] VITALS: BP 188/77
[2022-01-02] MEDS ORDERED: NITROGLYCERIN 2% OINT 1 GM UNIT DOSE PACKET TOP PRN (00:45)
[2022-01-02 01:50] VITALS: BP 135/77
[2022-01-02 03:50] VITALS: BP 187/75
[2022-01-02 04:05] VITALS: BP 192/88
[2022-01-02 04:37] LABS: BASOPHILS % (AUTO) 0 % (0-10); EOSINOPHILS # (AUTO) 0.2 10^3/uL (0.0-0.3); EOSINOPHILS % (AUTO) 3 % (0-10); HEMATOCRIT 29 % (35-52); HEMOGLOBIN 9.3 g/dL (11.5-16.0); LYMPHOCYTES # (AUTO) 0.6 10^3/uL (1.0-4.0); LYMPHOCYTES % (AUTO) 12 % (12-44); MEAN CORPUSCULAR HEMOGLOBIN 26 pg (25-34); MEAN CORPUSCULAR HGB CONC 32 g/dL (32-36); MEAN CORPUSCULAR VOLUME 82 fL (80-99); MEAN PLATELET VOLUME 8.6 fL (9.0-12.2); MONOCYTES # (AUTO) 0.4 10^3/uL (0.0-1.0); MONOCYTES % (AUTO) 7 % (0-12); NEUTROPHILS # (AUTO) 3.9 10^3/uL (1.8-7.8); NEUTROPHILS % (AUTO) 77 % (42-75); PLATELET COUNT 273 10^3/uL (130-400); WHITE BLOOD COUNT 5.1 10^3/uL (4.3-11.0)
[2022-01-02] MEDS: PANTOPRAZOLE 40 MG (PROTONIX) TAB PO SCH ×2 (04:45→09:37)
[2022-01-02] MEDS: BETHANECHOL 25 MG (URECHOLINE) TAB PO SCH ×2 (04:45→09:37)
[2022-01-02] MEDS ORDERED: hydrALAZINE (APESOLINE) 20 MG/ML VIAL IV PRN (05:00)
[2022-01-02 05:04] LABS: ALBUMIN 2.5 GM/DL (3.2-4.5); POTASSIUM 3.3 MMOL/L (3.6-5.0)
[2022-01-02 05:05] LABS: CALCIUM 8.1 MG/DL (8.5-10.1)
[2022-01-02 05:06] LABS: TOTAL PROTEIN 4.5 GM/DL (6.4-8.2)
[2022-01-02] MEDS: LACTATED RINGERS 1,000 ML IV SCH (05:07)
[2022-01-02 05:08] LABS: BILIRUBIN,TOTAL 0.3 MG/DL (0.1-1.0)
[2022-01-02 05:10] LABS: CREATININE SERUM 0.61 MG/DL (0.60-1.30)
[2022-01-02] MEDS: inSUlin ASPART (NovoLOG) 1 UNIT/0.01 ML (CHARGE PER UNIT) SC SCH ×2 (05:11→11:21)
[2022-01-02] MEDS ORDERED: FUROSEMIDE 40 MG/4 ML INJ (LASIX) IVP ONE (05:45)
[2022-01-02 06:21] VITALS: BP 183/81
[2022-01-02] MEDS: morphine INJ 4 MG/ML 1 ML (VIAL/SYRINGE) IV PRN (06:27)
--- NOTE | 2022-01-02 06:29 | Progress Note - Surgery ---
DARREN SILVA 01/02/22 0629: Subjective Date Seen by a Provider: Jan 02, 2022 Time Seen by a Provider: 06:24 Subjective/Events-last exam Patient is awake and alert in her bed this morning. Patient reports that her nausea is much improved today. She reports passing flatus and had two bowel movements yesterday. Patient reports some pain in the epigastric area with tenderness on palpation. Patient's stomach is much less distended than yesterday. Review of Systems General: No Chills, No Night Sweats HEENT: No Head Aches, No Visual Changes Pulmonary: No Dyspnea, No Cough Cardiovascular: No: Chest Pain, Palpitations Gastrointestinal: Nausea; No: Vomiting Genitourinary: No Dysuria, No Frequency Musculoskeletal: No: neck pain, shoulder pain Neurological: Weakness; No: Numbness Objective Exam Vital Signs Date Time Temp Pulse Resp B/P (MAP) Pulse Ox O2 Delivery O2 Flow Rate FiO2 01/02/22 06:21 183/81 (115) 01/02/22 04:05 192/88 (122) 01/02/22 03:50 36.0 104 20 187/75 (112) 94 Nasal Cannula 2.00 01/02/22 01:50 107 135/77 (96) 01/02/22 00:21 36.0 115 18 188/77 (114) 95 Nasal Cannula 2.00 01/01/22 20:01 36.7 107 18 171/75 (107) 94 Nasal Cannula 2.00 01/01/22 19:45 Nasal Cannula 2.00 01/01/22 16:07 36.4 107 22 170/70 (103) 96 Nasal Cannula 2.00 01/01/22 12:00 36.8 105 19 196/84 (121) 95 Nasal Cannula 2.00 01/01/22 08:43 36.2 105 20 189/85 (119) 96 Nasal Cannula 2.00 01/01/22 08:00 Nasal Cannula 3.00 I & O 01/02/22 07:00 Intake Total 50 ml Output Total 2250 ml Balance -2200 ml Capillary Refill : General Appearance: No Apparent Distress, Chronically ill, Obese HEENT: PERRL/EOMI, Normal ENT Inspection Neck: Full Range of Motion, Non Tender, Supple Respiratory: Chest Non Tender, No Accessory Muscle Use, No Respiratory Distress Cardiovascular: Regular Rate, Rhythm, No JVD Peripheral Pulses: 2+ Dorsalis Pedis (R), 2+ Left Dors-Pedis (L), 2+ Radial Pulses (R), 2+ Radial Pulses (L) Gastrointestinal: soft, tenderness (Epigastric), other ( incisions were clean, dry and intact) Extremity: Normal Inspection, Non Tender Neurologic/Psychiatric: Alert; No Oriented x3; Disoriented Skin: Normal Color, Warm/Dry Lymphatic: No Adenopathy Results Lab Laboratory Tests 01/01/22 11:17: Glucometer 161H 01/01/22 16:10: Glucometer 159H 01/01/22 20:46: Glucometer 164H 01/02/22 04:30: White Blood Count 5.1, Red Blood Count 3.53L, Hemoglobin 9.3L, Hematocrit 29L, Mean Corpuscular Volume 82, Mean Corpuscular Hemoglobin 26, Mean Corpuscular Hemoglobin Concent 32, Red Cell Distribution Width 13.5, Platelet Count 273, Mean Platelet Volume 8.6L, Immature Granulocyte % (Auto) 1, Neutrophils (%) (Auto) 77H, Lymphocytes (%) (Auto) 12, Monocytes (%) (Auto) 7, Eosinophils (%) (Auto) 3, Basophils (%) (Auto) 0, Neutrophils # (Auto) 3.9, Lymphocytes # (Auto) 0.6L, Monocytes # (Auto) 0.4, Eosinophils # (Auto) 0.2, Basophils # (Auto) 0.0, Immature Granulocyte # (Auto) 0.0, Sodium Level 140, Potassium Level 3.3L, Chloride Level 101, Carbon Dioxide Level 26, Anion Gap 13, Blood Urea Nitrogen 7, Creatinine 0.61, Estimat Glomerular Filtration Rate 91, BUN/Creatinine Ratio 11, Glucose Level 175H, Calcium Level 8.1L, Corrected Calcium 9.3, Magnesium Level 1.5L, Total Bilirubin 0.3, Aspartate Amino Transf (AST/SGOT) 12, Alanine Aminotransferase (ALT/SGPT) 11, Alkaline Phosphatase 49, Total Protein 4.5L, Albumin 2.5L 01/02/22 05:33: Glucometer 157H Microbiology 12/25/21 MRSA Screen - Final, Complete MRSA not isolated Assessment/Plan Assessment/Plan Assessment/Plan S/p subtotal colectomy w/ileorectal anastamosis POD #8 Colon cancer N/V Postop urinary retention Obesity Postop ileus Pt encouraged to continue working with PT to ambulate, chew gum (which should help with bowel function) and use IS as much as possible. Continue hoffman catheter for accurate i/o Continue IV morphine for pain control. Continue IV zofran at q2H for nausea. Keep NG tube in for decompression. KEERTHI PARKS DO 01/02/22 1558: Subjective Subjective/Events-last exam Feeling better than yesterday. Nausea improved and has ng. Had BM. NPO. Not ambulating much. Denies fever sweats chills shortness of breath or chest pain. Objective Exam General Appearance: Chronically ill, Obese HEENT: PERRL/EOMI, Normal ENT Inspection, Other (ng) Neck: Non Tender, Supple Respiratory: Chest Non Tender, No Accessory Muscle Use, No Respiratory Distress Cardiovascular: Regular Rate, Rhythm, No JVD Gastrointestinal: soft, distended (less), tenderness (Epigastric minimal), other ( incisions were clean, dry and intact) Extremity: Normal Inspection, Non Tender Neurologic/Psychiatric: Alert, Disoriented Skin: Normal Color, Warm/Dry Lymphatic: No Adenopathy Assessment/Plan Assessment/Plan Assessment/Plan S/p subtotal colectomy w/ileorectal anastamosis POD #8 Colon cancer N/V Postop urinary retention Obesity Postop ileus Pt encouraged to continue working with PT to ambulate, chew gum (which should help with bowel function) and use IS as much as possible. Continue hoffman catheter for accurate i/o Continue IV morphine for pain control. Continue IV zofran at q2H for nausea. Clamp NG tube if nauseated put back to suction Since having bm likely remove it tomorrow. Supervisory-Addendum Brief Verification & Attestation Participated in pt care: history, MDM, physical Personally performed: exam, history, MDM, supervision of care Care discussed with: Medical Student Procedures: n/a Results interpretation: Verified all documentation Verification and Attestation of Medical Student E/M Service A medical student performed and documented this service in my presence. I reviewed and verified all information documented by the medical student and made modifications to such information, when appropriate. I personally performed the physical exam and medical decision making. Keerthi Parks, Jan 02, 2022,15:58 DARREN SILVA Jan 02, 2022 06:29 KEERTHI PARKS DO Jan 02, 2022 15:58
[2022-01-02] MEDS ORDERED: hydrALAZINE (APESOLINE) 20 MG/ML VIAL IV SCH (08:00)
[2022-01-02 08:55] VITALS: BP 182/77
[2022-01-02] MEDS ORDERED: cloNIDine 0.1 MG PATCH (CATAPRES TTS) TDSY TD SCH (09:00)
[2022-01-02] MEDS: amLODIPine 5 MG (NORVASC) TAB PO SCH (09:36)
[2022-01-02] MEDS: ENOXAPARIN 40 MG/0.4 ML (LOVENOX) SYR SC SCH (09:37)
--- NOTE | 2022-01-02 09:56 | Physical Therapy Daily Note ---
PT Daily Note-Current Subjective Patient reluctantly agrees to PT. C/o 10/10 abdominal pain. RN aware. Pain Numeric Pain Scale: 10-Worst Possible Pain Location: Medial, Lower Location Body Site: Abdomen Pain Description: Pressure, Acute Mental Status Patient Orientation: Normal For Age Attachments: NG Tube, Benítez Catheter, IV Transfers SCALE: Activities may be completed with or without assistive devices. 1-Cdnehjevwo-oippzvv completes the activity by him/herself with no assistance from a helper. 5-Set-up or Clean-up Assistance-helper sets up or cleans up; patient completes activity. [place] assists only prior to or following the activity. 4-Supervision or Touching Assistance-helper provides verbal cues and/or touching/steadying and/or contact guard assistance as patient completes activity. Assistance may be provided throughout the activity or intermittently. 3-Partial/Moderate Assistance-helper does LESS THAN HALF the effort. [place] lifts, holds or supports trunk or limbs, but provides less than half the effort. 2-Substantial/Maximal Assistance-helper does MORE THAN HALF the effort. [place] lifts or holds trunk or limbs and provides more than half the effort. 9-Dlxvqapyp-frvktl does ALL the effort. Patient does none of the effort to complete the activity. Or, the assistance of 2 or more helpers is required for the patient to complete the activity. If activity was not attempted, code reason: 7-Patient Refused. 9-Not Applicable-not attempted and the patient did not perform the activity before the current illness, exacerbation or injury. 10-Not Attempted due to Environmental Limitations-(lack of equipment, weather restraints, etc.). 88-Not Attempted due to Medical Conditions or Safety Concerns. Lying to Sitting/Side of Bed(Q: 2 Sit to Stand (QC): 3 Chair/Zkh-la-Kbsmd Xfer(QC): 3 Weight Bearing Right Lower Extremity: Right Weight Bearing/Tolerated Left Lower Extremity: Left Weight Bearing/Tolerated Gait Training Distance: 100' Walk 10 feet (QC): 3 Walk 50 ft with 2 Turns(QC): 3 Gait Assistive Device: FWW very slow, shuffle, flexed bilateral knee posture Exercises Seated Therapy Exercises: Ankle pumps, Long arc quads Seated Reps: 12 Assessment Patient requires much encouragement to participate with therapy and to ambulate due to abdominal pain. Patient did tolerate very well and is up in recliner with needs met. PT to increase activity as tolerated by patient. 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 PT Teacher Aide Goals Teacher Aide Goals PT Half-Way Goals Time Frame: Jan 18, 2022 Roll Left & Right (QC): 4 Sit to Lying (QC): 4 Lying-Sitting on Side/Bed(QC): 4 Sit to Stand (QC): 4 Chair/Spp-hm-Kejbb Xfer(QC): 4 Toilet Transfer (QC): 4 Walk 10 feet (QC): 4 Walk 50ft with 2 Turns (QC): 4 Walk 150 ft (QC): 4 PT Plan Treatment/Plan Treatment Plan: Continue Plan of Care Treatment Plan: Bed Mobility, Education, Functional Activity Pat, Functional Strength, Gait, Safety, Therapeutic Exercise, Transfers Treatment Duration: Jan 18, 2022 Frequency: 6 times per week Estimated Hrs Per Day: .25 hour per day Time/GCodes Time In: 856 Time Out: 910 Total Billed Treatment Time: 14 Total Billed Treatment 1 visit GT 14 min BAILEY CHÁVEZ PT Jan 02, 2022 09:56
[2022-01-02] MEDS ORDERED: amLODIPine 5 MG (NORVASC) TAB PO NR (11:00)
--- NOTE | 2022-01-02 11:31 | Occupational Ther Daily Note ---
OT Current Status-Daily Note Subjective Pt alert, showering with assist from nrsg. Pt agrees to therapy. C/o fatigue and pain, no rating. Mental Status/Objective Patient Orientation: Person, Place, Time, Situation Attachments: Benítez Catheter, IV, NG Tube ADL-Treatment Pt did assist with upper body bathing though fatigued quickly and required assistance for lower body bathing, rinsing and drying. Pt incontinent of bowel during shower 2x's. Pt required assistance to dress upper body due to fatigue and dependent for lower body drsg due to fatigue and pain with bending. Assist x2 to transfer out of shower and position in chair. After therapy, pt sitting in recliner with call light/phone in reach. Nrsg present in room. All needs met. Therapy Code Descriptions/Definitions Functional [place] Measure: 0=Not Assessed/NA 4=Minimal Assistance 1=Total Assistance 5=Supervision or Setup 2=Maximal Assistance 6=Modified [place] 3=Moderate Assistance 7=Complete IndependenceSCALE: Activities may be completed with or without assistive devices. 9-Nhbtyiuqdr-dtnngms completes the activity by him/herself with no assistance from a helper. 5-Set-up or Clean-up Assistance-helper sets up or cleans up; patient completes activity. [place] assists only prior to or following the activity. 4-Supervision or Touching Assistance-helper provides verbal cues and/or touching/steadying and/or contact guard assistance as patient completes activi ty. Assistance may be provided throughout the activity or intermittently. 3-Partial/Moderate Assistance-helper does LESS THAN HALF the effort. [place] lifts, holds or supports trunk or limbs, but provides less than half the effort. 2-Substantial/Maximal Assistance-helper does MORE THAN HALF the effort. [place] lifts or holds trunk or limbs and provides more than half the effort. 1-Kyqfmrvyk-zlxqao does ALL the effort. Patient does none of the effort to complete the activity. Or, the assistance of 2 or more helpers is required for the patient to complete the activity. If activity was not attempted, code reason: 7-Patient Refused. 9-Not Applicable-not attempted and the patient did not perform the activity before the current illness, exacerbation or injury. 10-Not Attempted due to Environmental Limitations-(lack of equipment, weather restraints, etc.). 88-Not Attempted due to Medical Conditions or Safety Concerns. Shower/Bathe Self (QC): 2 Upper Body Dressing (QC): 3 Lower Body Dressing (QC): 1 On/Off Footwear: 1 Toileting Hygiene (QC): 1 OT Gauger Chief Goals Gauger Chief Goals Time Frame: Jan 10, 2022 Eating (QC): 5 Oral Hygiene (QC): 5 Toileting Hygiene (QC): 4 Shower/Bathe Self (QC): 4 Upper Body Dressing (QC): 5 Lower Body Dressing (QC): 4 On/Off Footwear (QC): 4 Additional Goals: 1-Demonstrate ADL Tasks, 2-Verbalize Understanding, 3- ImproveStrength/Pat 1=Demonstrate adherence to instructed precautions during ADL tasks. 2=Patient will verbalize/demonstrate understanding of assistive devices/modifications for ADL. 3=Patient will improve strength/tolerance for activity to enable patient to perform ADL's. OT Education/Plan Problem List/Assessment Assessment: Decreased Activ Tolerance, Decreased UE Strength, Impaired Self- Care Skills Discharge Recommendations Plan/Recommendations: Continue POC Treatment Plan/Plan of Care Patient would benefit from OT for education, treatment and training to promote independence in ADL's, mobility, safety and/or upper extremity function for ADL's. Plan of Care: ADL Retraining, Functional Mobility, UE Funct Exercise/Act Treatment Duration: Jan 10, 2022 Frequency: 3 times per week (3-5 times per week) Rehab Potential: Guarded Time/GCodes Start Time: 10:48 Stop Time: 11:15 Total Time Billed (hr/min): 27 Billed Treatment Time 1 visit-ADL 2 (27 min) BLANCA MO Jan 02, 2022 11:31
[2022-01-02] MEDS: POTASSIUM CL 10MEQ/50ML IVPB 50 ML IV SCH (11:34)
--- NOTE | 2022-01-02 11:56 | Discharge Summary ---
Diagnosis/Chief Complaint Date of Admission Dec 25, 2021 at 09:13 Date of Discharge Discharge Date: Jan 02, 2022 Discharge Diagnosis Small bowel obstruction- Found today on Xray (01-01-2022) NG tube placed S/p subtotal colectomy w/ileorectal anastamosis POD #7 Monitor labs Monitor hydration Consult surgery Colon cancer Post op care in coordination with her surgeon, Dr. Parks Receiving IV fluids LR 75cc/hr Continue pain management - well controlled at this time T2DM Receiving Novolog (sliding scale) HTN Restarted home meds Dementia Postop urinary retention requiring Benítez catheter placement again- started Urecholine 3 days ago DVT PPX: Lovenox Physical Therapy Will evaluate ability to perform considering new onset abdominal pain due to SBO Discharge Summary Discharge Physical Examination Allergies: Coded Allergies: Penicillins (Unverified Allergy, Intermediate, Rash, 09/03/21) Sulfa (Sulfonamide Antibiotics) (Unverified Allergy, Intermediate, Rash, 09/03/21) Vitals & I&Os Vital Signs Date Time Temp Pulse Resp B/P (MAP) Pulse Ox O2 Delivery O2 Flow Rate FiO2 01/02/22 08:55 36.8 115 18 182/77 (112) 92 Nasal Cannula 2.00 01/01/22 05:50 28 General Appearance: Alert, Cooperative Respiratory: Clear to Auscultation Cardiovascular: Regular Rate Psych/Mental Status: Mental Status NL Hospital Course Was the Problem List Reviewed?: Yes 81 year old white female is admitted to ICU on 12-25-2021 for status post colectomy with ileorectal anastamosis due to history of colon cancer. She was intubated after surgery secondary to not coming out of anesthesia and was transferred to the ICU. The next day she was extubated and placed on Bipap. NG was placed on 12-26-2021 and subsequently removed on 12-27-2021. Patients pain, diabetes, and hypertension were managed throughout her stay. Later in her stay medication was added to manage her hypertension, which included clonidine, hydralazine, and furosemide on (01-01-2022). Patient did have complaints of waxing and waning pain, nausea, and vomiting throughout her stay which were managed appropriately. Patient did not have a bowel movement for 7 days after surgery, causing her a small bowel obstruction. NG was then placed again on 01-01-2022 and she then had 3 bowel movements later that day. The patients dementia was evident throughout her stay with some days being better than others. Last encounter with patient showed improved pain control, mental status, and overall status. Labs (last 24 hrs) Laboratory Tests 12/25/21 09:38: Glucometer 188H 12/25/21 23:30: Glucometer 387H 12/26/21 06:07: Glucometer 211H 12/26/21 06:21: White Blood Count 9.3, Red Blood Count 3.62L, Hemoglobin 9.8L, Hematocrit 30L, Mean Corpuscular Volume 83, Mean Corpuscular Hemoglobin 27, Mean Corpuscular Hemoglobin Concent 33, Red Cell Distribution Width 13.6, Platelet Count 235, Mean Platelet Volume 9.1, Sodium Level 140, Potassium Level 3.8, Chloride Level 109H, Carbon Dioxide Level 23, Anion Gap 8, Blood Urea Nitrogen 11, Creatinine 0.74, Estimat Glomerular Filtration Rate 82, BUN/Creatinine Ratio 15, Glucose Level 234H, Calcium Level 8.3L, Magnesium Level 1.4L 12/26/21 11:39: Glucometer 144H 12/26/21 18:53: Glucometer 173H 12/27/21 00:59: Glucometer 204H 12/27/21 04:15: White Blood Count 9.8, Red Blood Count 3.41L, Hemoglobin 9.0L, Hematocrit 29L, Mean Corpuscular Volume 84, Mean Corpuscular Hemoglobin 26, Mean Corpuscular Hemoglobin Concent 32, Red Cell Distribution Width 14.0, Platelet Count 228, Mean Platelet Volume 9.1, Immature Granulocyte % (Auto) 0, Neutrophils (%) (Auto) 81H, Lymphocytes (%) (Auto) 12, Monocytes (%) (Auto) 7, Eosinophils (%) (Auto) 0, Basophils (%) (Auto) 0, Neutrophils # (Auto) 7.9H, Lymphocytes # (Auto) 1.1, Monocytes # (Auto) 0.7, Eosinophils # (Auto) 0.0, Basophils # (Auto) 0.0, Immature Granulocyte # (Auto) 0.0, Sodium Level 141, Potassium Level 3.4L, Chloride Level 110H, Carbon Dioxide Level 22, Anion Gap 9, Blood Urea Nitrogen 11, Creatinine 0.66, Estimat Glomerular Filtration Rate 89, BUN/Creatinine Ratio 17, Glucose Level 164H, Calcium Level 8.4L, Corrected Calcium 9.4, Magnesium Level 1.5L, Total Bilirubin 0.2, Aspartate Amino Transf (AST/SGOT) 12, Alanine Aminotransferase (ALT/SGPT) 18, Alkaline Phosphatase 58, Total Protein 4.8L, Albumin 2.8L 12/27/21 11:53: Glucometer 155H 12/27/21 17:12: Glucometer 210H 12/27/21 21:15: Glucometer 216H 12/28/21 03:27: White Blood Count 7.5, Red Blood Count 3.43L, Hemoglobin 9.2L, Hematocrit 29L, Mean Corpuscular Volume 83, Mean Corpuscular Hemoglobin 27, Mean Corpuscular Hemoglobin Concent 32, Red Cell Distribution Width 13.8, Platelet Count 220, Mean Platelet Volume 8.9L, Immature Granulocyte % (Auto) 0, Neutrophils (%) (Auto) 77H, Lymphocytes (%) (Auto) 13, Monocytes (%) (Auto) 6, Eosinophils (%) (Auto) 3, Basophils (%) (Auto) 0, Neutrophils # (Auto) 5.8, Lymphocytes # (Auto) 1.0, Monocytes # (Auto) 0.5, Eosinophils # (Auto) 0.2, Basophils # (Auto) 0.0, Immature Granulocyte # (Auto) 0.0, Sodium Level 140, Potassium Level 3.5L, Chloride Level 106, Carbon Dioxide Level 23, Anion Gap 11, Blood Urea Nitrogen 7, Creatinine 0.58L, Estimat Glomerular Filtration Rate 92, BUN/Creatinine Ratio 12, Glucose Level 163H, Calcium Level 8.2L, Corrected Calcium 9.3, Magnesium Level 1.7, Total Bilirubin 0.3, Aspartate Amino Transf (AST/SGOT) 11, Alanine Aminotransferase (ALT/SGPT) 16, Alkaline Phosphatase 55, Total Protein 4.7L, Albumin 2.6L 12/28/21 10:49: Glucometer 230H 12/28/21 15:52: Glucometer 211H 12/28/21 20:25: Glucometer 205H 12/29/21 03:45: White Blood Count 7.7, Red Blood Count 3.53L, Hemoglobin 9.5L, Hematocrit 29L, Mean Corpuscular Volume 82, Mean Corpuscular Hemoglobin 27, Mean Corpuscular Hemoglobin Concent 33, Red Cell Distribution Width 13.8, Platelet Count 269, Mean Platelet Volume 9.0, Immature Granulocyte % (Auto) 0, Neutrophils (%) (Auto) 79H, Lymphocytes (%) (Auto) 12, Monocytes (%) (Auto) 6, Eosinophils (%) (Auto) 3, Basophils (%) (Auto) 1, Neutrophils # (Auto) 6.1, Lymphocytes # (Auto) 0.9L, Monocytes # (Auto) 0.4, Eosinophils # (Auto) 0.2, Basophils # (Auto) 0.0, Immature Granulocyte # (Auto) 0.0, Sodium Level 138, Potassium Level 3.9, Chloride Level 103, Carbon Dioxide Level 23, Anion Gap 12, Blood Urea Nitrogen 6L, Creatinine 0.61, Estimat Glomerular Filtration Rate 91, BUN/Creatinine Ratio 10, Glucose Level 198H, Calcium Level 8.1L, Corrected Calcium 9.3, Magnesium Level 1.8, Total Bilirubin 0.3, Aspartate Amino Transf (AST/SGOT) 12, Alanine Aminotransferase (ALT/SGPT) 13, Alkaline Phosphatase 50, Total Protein 4.6L, Albumin 2.5L 12/29/21 11:32: Glucometer 185H 12/29/21 16:17: Glucometer 198H 12/29/21 20:24: Glucometer 171H 12/30/21 05:22: Glucometer 180H 12/30/21 05:55: White Blood Count 5.7, Red Blood Count 3.40L, Hemoglobin 9.0L, Hematocrit 28L, Mean Corpuscular Volume 83, Mean Corpuscular Hemoglobin 27, Mean Corpuscular Hemoglobin Concent 32, Red Cell Distribution Width 13.4, Platelet Count 272, Mean Platelet Volume 8.7L, Immature Granulocyte % (Auto) 1, Neutrophils (%) (Auto) 75, Lymphocytes (%) (Auto) 13, Monocytes (%) (Auto) 7, Eosinophils (%) (Auto) 4, Basophils (%) (Auto) 1, Neutrophils # (Auto) 4.3, Lymphocytes # (Auto) 0.7L, Monocytes # (Auto) 0.4, Eosinophils # (Auto) 0.2, Basophils # (Auto) 0.0, Immature Granulocyte # (Auto) 0.0, Sodium Level 139, Potassium Level 3.8, Chloride Level 103, Carbon Dioxide Level 26, Anion Gap 10, Blood Urea Nitrogen 7, Creatinine 0.66, Estimat Glomerular Filtration Rate 89, BUN/Creatinine Ratio 11, Glucose Level 205H, Calcium Level 8.1L, Corrected Calcium 9.2, Magnesium [place] 1.6, Total Bilirubin 0.3, Aspartate Amino Transf (AST/SGOT) 10, Alanine Aminotransferase (ALT/SGPT) 10, Alkaline Phosphatase 52, Total Protein 4.6L, Albumin 2.6L 12/30/21 11:17: Glucometer 198H 12/30/21 16:01: Glucometer 148H 12/30/21 20:27: Glucometer 171H 12/31/21 05:21: Glucometer 217H 12/31/21 05:30: White Blood Count 6.8, Red Blood Count 3.35L, Hemoglobin 8.8L, Hematocrit 28L, Mean Corpuscular Volume 83, Mean Corpuscular Hemoglobin 26, Mean Corpuscular Hemoglobin Concent 32, Red Cell Distribution Width 13.2, Platelet Count 276, Mean Platelet Volume 8.8L, Immature Granulocyte % (Auto) 1, Neutrophils (%) (Auto) 85H, Lymphocytes (%) (Auto) 9L, Monocytes (%) (Auto) 4, Eosinophils (%) (Auto) 1, Basophils (%) (Auto) 1, Neutrophils # (Auto) 5.8, Lymphocytes # (Auto) 0.6L, Monocytes # (Auto) 0.3, Eosinophils # (Auto) 0.0, Basophils # (Auto) 0.1, Immature Granulocyte # (Auto) 0.1, Sodium Level 138, Potassium Level 3.9, Chloride Level 102, Carbon Dioxide Level 26, Anion Gap 10, Blood Urea Nitrogen 9, Creatinine 0.62, Estimat Glomerular Filtration Rate 91, BUN/Creatinine Ratio 15, Glucose Level 217H, Calcium Level 8.1L, Corrected Calcium 9.2, Magnesium Level 1.5L, Total Bilirubin 0.2, Aspartate Amino Transf (AST/SGOT) 12, Alanine Aminotransferase (ALT/SGPT) 10, Alkaline Phosphatase 54, Total Protein 4.5L, Albumin 2.6L 12/31/21 10:23: Glucometer 140H 12/31/21 15:27: Glucometer 173H 12/31/21 20:16: Glucometer 199H 01/01/22 04:30: White Blood Count 5.4, Red Blood Count 3.53L, Hemoglobin 9.3L, Hematocrit 29L, Mean Corpuscular Volume 82, Mean Corpuscular Hemoglobin 26, Mean Corpuscular Hemoglobin Concent 32, Red Cell Distribution Width 13.4, Platelet Count 260, Mean Platelet Volume 8.7L, Immature Granulocyte % (Auto) 1, Neutrophils (%) (Auto) 72, Lymphocytes (%) (Auto) 15, Monocytes (%) (Auto) 7, Eosinophils (%) (Auto) 5, Basophils (%) (Auto) 0, Neutrophils # (Auto) 3.9, Lymphocytes # (Auto) 0.8L, Monocytes # (Auto) 0.4, Eosinophils # (Auto) 0.3, Basophils # (Auto) 0.0, Immature Granulocyte # (Auto) 0.0, Sodium Level 140, Potassium Level 3.5L, Chloride Level 100, Carbon Dioxide Level 28, Anion Gap 12, Blood Urea Nitrogen 8, Creatinine 0.60, Estimat Glomerular Filtration Rate 91, BUN/Creatinine Ratio 13, Glucose Level 196H, Calcium Level 8.2L, Corrected Calcium 9.2, Magnesium Level 1.5L, Total Bilirubin 0.3, Aspartate Amino Transf (AST/SGOT) 12, Alanine Aminotransferase (ALT/SGPT) 10, Alkaline Phosphatase 55, Total Protein 4.7L, Albumin 2.7L 01/01/22 11:17: Glucometer 161H 01/01/22 16:10: Glucometer 159H 01/01/22 20:46: Glucometer 164H 01/02/22 04:30: White Blood Count 5.1, Red Blood Count 3.53L, Hemoglobin 9.3L, Hematocrit 29L, Mean Corpuscular Volume 82, Mean Corpuscular Hemoglobin 26, Mean Corpuscular Hemoglobin Concent 32, Red Cell Distribution Width 13.5, Platelet Count 273, Mean Platelet Volume 8.6L, Immature Granulocyte % (Auto) 1, Neutrophils (%) (Auto) 77H, Lymphocytes (%) (Auto) 12, Monocytes (%) (Auto) 7, Eosinophils (%) (Auto) 3, Basophils (%) (Auto) 0, Neutrophils # (Auto) 3.9, Lymphocytes # (Auto) 0.6L, Monocytes # (Auto) 0.4, Eosinophils # (Auto) 0.2, Basophils # (Auto) 0.0, Immature Granulocyte # (Auto) 0.0, Sodium Level 140, Potassium Level 3.3L, Chloride Level 101, Carbon Dioxide Level 26, Anion Gap 13, Blood Urea Nitrogen 7, Creatinine 0.61, Estimat Glomerular Filtration Rate 91, BUN/Creatinine Ratio 11, Glucose Level 175H, Calcium Level 8.1L, Corrected Calcium 9.3, Magnesium Level 1.5L, Total Bilirubin 0.3, Aspartate Amino Transf (AST/SGOT) 12, Alanine Aminotransferase (ALT/SGPT) 11, Alkaline Phosphatase 49, Total Protein 4.5L, Al bumin 2.5L 01/02/22 05:33: Glucometer 157H 01/02/22 11:54: Glucometer 199H Microbiology 12/25/21 MRSA Screen - Final, Complete MRSA not isolated Pending Labs Microbiology Date/Time Source Procedure Growth Status 12/25/21 10:15 Nasal MRSA Screen - Final MRSA not isolated Complete Laboratory Tests 12/25/21 09:38: Glucometer 188 12/25/21 23:30: Glucometer 387 12/26/21 06:07: Glucometer 211 12/26/21 06:21: White Blood Count 9.3, Red Blood Count 3.62, Hemoglobin 9.8, Hematocrit 30, Mean Corpuscular Volume 83, Mean Corpuscular Hemoglobin 27, Mean Corpuscular Hemoglobin Concent 33, Red Cell Distribution Width 13.6, Platelet Count 235, Mean Platelet Volume 9.1, Sodium Level 140, Potassium Level 3.8, Chloride Level 109, Carbon Dioxide Level 23, Anion Gap 8, Blood Urea Nitrogen 11, Creatinine 0.74, Estimat Glomerular Filtration Rate 82, BUN/Creatinine Ratio 15, Glucose Level 234, Calcium Level 8.3, Magnesium Level 1.4 12/26/21 11:39: Glucometer 144 12/26/21 18:53: Glucometer 173 12/27/21 00:59: Glucometer 204 12/27/21 04:15: White Blood Count 9.8, Red Blood Count 3.41, Hemoglobin 9.0, Hematocrit 29, Mean Corpuscular Volume 84, Mean Corpuscular Hemoglobin 26, Mean Corpuscular Hemoglobin Concent 32, Red Cell Distribution Width 14.0, Platelet Count 228, Mean Platelet Volume 9.1, Immature Granulocyte % (Auto) 0, Neutrophils (%) (Auto) 81, Lymphocytes (%) (Auto) 12, Monocytes (%) (Auto) 7, Eosinophils (%) (Auto) 0, Basophils (%) (Auto) 0, Neutrophils # (Auto) 7.9, Lymphocytes # (Auto) 1.1, Monocytes # (Auto) 0.7, Eosinophils # (Auto) 0.0, Basophils # (Auto) 0.0, Immature Granulocyte # (Auto) 0.0, Sodium Level 141, Potassium Level 3.4, Chloride Level 110, Carbon Dioxide Level 22, Anion Gap 9, Blood Urea Nitrogen 11, Creatinine 0.66, Estimat Glomerular Filtration Rate 89, BUN/Creatinine Ratio 17, Glucose Level 164, Calcium Level 8.4, Corrected Calcium 9.4, Magnesium Level 1.5, Total Bilirubin 0.2, Aspartate Amino Transf (AST/SGOT) 12, Alanine Aminotransferase (ALT/SGPT) 18, Alkaline Phosphatase 58, Total Protein 4.8, Albumin 2.8 12/27/21 11:53: Glucometer 155 12/27/21 17:12: Glucometer 210 12/27/21 21:15: Glucometer 216 12/28/21 03:27: White Blood Count 7.5, Red Blood Count 3.43, Hemoglobin 9.2, Hematocrit 29, Mean Corpuscular Volume 83, Mean Corpuscular Hemoglobin 27, Mean Corpuscular Hemoglobin Concent 32, Red Cell Distribution Width 13.8, Platelet Count 220, Mean Platelet Volume 8.9, Immature Granulocyte % (Auto) 0, Neutrophils (%) (Auto) 77, Lymphocytes (%) (Auto) 13, Monocytes (%) (Auto) 6, Eosinophils (%) (Auto) 3, Basophils (%) (Auto) 0, Neutrophils # (Auto) 5.8, Lymphocytes # (Auto) 1.0, Monocytes # (Auto) 0.5, Eosinophils # (Auto) 0.2, Basophils # (Auto) 0.0, Immature Granulocyte # (Auto) 0.0, Sodium Level 140, Potassium Level 3.5, Chloride Level 106, Carbon Dioxide Level 23, Anion Gap 11, Blood Urea Nitrogen 7, Creatinine 0.58, Estimat Glomerular Filtration Rate 92, BUN/Creatinine Ratio 12, Glucose Level 163, Calcium Level 8.2, Corrected Calcium 9.3, Magnesium Level 1.7, Total Bilirubin 0.3, Aspartate Amino Transf (AST/SGOT) 11, Alanine Aminotransferase (ALT/SGPT) 16, Alkaline Phosphatase 55, Total Protein 4.7, Albumin 2.6 12/28/21 10:49: Glucometer 230 12/28/21 15:52: Glucometer 211 12/28/21 20:25: Glucometer 205 12/29/21 03:45: White Blood Count 7.7, Red Blood Count 3.53, Hemoglobin 9.5, Hematocrit 29, Mean Corpuscular Volume 82, Mean Corpuscular Hemoglobin 27, Mean Corpuscular Hemogl obin Concent 33, Red Cell Distribution Width 13.8, Platelet Count 269, Mean Platelet Volume 9.0, Immature Granulocyte % (Auto) 0, Neutrophils (%) (Auto) 79, Lymphocytes (%) (Auto) 12, Monocytes (%) (Auto) 6, Eosinophils (%) (Auto) 3, Basophils (%) (Auto) 1, Neutrophils # (Auto) 6.1, Lymphocytes # (Auto) 0.9, Monocytes # (Auto) 0.4, Eosinophils # (Auto) 0.2, Basophils # (Auto) 0.0, Immature Granulocyte # (Auto) 0.0, Sodium Level 138, Potassium Level 3.9, Chloride Level 103, Carbon Dioxide Level 23, Anion Gap 12, Blood Urea Nitrogen 6, Creatinine 0.61, Estimat Glomerular Filtration Rate 91, BUN/Creatinine Ratio 10, Glucose Level 198, Calcium Level 8.1, Corrected Calcium 9.3, Magnesium Level 1.8, Total Bilirubin 0.3, Aspartate Amino Transf (AST/SGOT) 12, Alanine Aminotransferase (ALT/SGPT) 13, Alkaline Phosphatase 50, Total Protein 4.6, Albumin 2.5 12/29/21 11:32: Glucometer 185 12/29/21 16:17: Glucometer 198 12/29/21 20:24: Glucometer 171 12/30/21 05:22: Glucometer 180 12/30/21 05:55: White Blood Count 5.7, Red Blood Count 3.40, Hemoglobin 9.0, Hematocrit 28, Mean Corpuscular Volume 83, Mean Corpuscular Hemoglobin 27, Mean Corpuscular Hemoglobin Concent 32, Red Cell Distribution Width 13.4, Platelet Count 272, Mean Platelet Volume 8.7, Immature Granulocyte % (Auto) 1, Neutrophils (%) (Auto) 75, Lymphocytes (%) (Auto) 13, Monocytes (%) (Auto) 7, Eosinophils (%) (Auto) 4, Basophils (%) (Auto) 1, Neutrophils # (Auto) 4.3, Lymphocytes # (Auto) 0.7, Monocytes # (Auto) 0.4, Eosinophils # (Auto) 0.2, Basophils # (Auto) 0.0, Immature Granulocyte # (Auto) 0.0, Sodium Level 139, Potassium Level 3.8, Chloride Level 103, Carbon Dioxide Level 26, Anion Gap 10, Blood Urea Nitrogen 7, Creatinine 0.66, Estimat Glomerular Filtration Rate 89, BUN/Creatinine Ratio 11, Glucose Level 205, Calcium Level 8.1, Corrected Calcium 9.2, Magnesium Level 1.6, Total Bilirubin 0.3, Aspartate Amino Transf (AST/SGOT) 10, Alanine Aminotransferase (ALT/SGPT) 10, Alkaline Phosphatase 52, Total Protein 4.6, Albumin 2.6 12/30/21 11:17: Glucometer 198 12/30/21 16:01: Glucometer 148 12/30/21 20:27: Glucometer 171 12/31/21 05:21: Glucometer 217 12/31/21 05:30: White Blood Count 6.8, Red Blood Count 3.35, Hemoglobin 8.8, Hematocrit 28, Mean Corpuscular Volume 83, Mean Corpuscular Hemoglobin 26, Mean Corpuscular Hemoglobin Concent 32, Red Cell Distribution Width 13.2, Platelet Count 276, Mean Platelet Volume 8.8, Immature Granulocyte % (Auto) 1, Neutrophils (%) (Auto) 85, Lymphocytes (%) (Auto) 9, Monocytes (%) (Auto) 4, Eosinophils (%) (Auto) 1, Basophils (%) (Auto) 1, Neutrophils # (Auto) 5.8, Lymphocytes # (Auto) 0.6, Monocytes # (Auto) 0.3, Eosinophils # (Auto) 0.0, Basophils # (Auto) 0.1, Immature Granulocyte # (Auto) 0.1, Sodium Level 138, Potassium Level 3.9, Chloride Level 102, Carbon Dioxide Level 26, Anion Gap 10, Blood Urea Nitrogen 9, Creatinine 0.62, Estimat Glomerular Filtration Rate 91, BUN/Creatinine Ratio 15, Glucose Level 217, Calcium Level 8.1, Corrected Calcium 9.2, Magnesium Level 1.5, Total Bilirubin 0.2, Aspartate Amino Transf (AST/SGOT) 12, Alanine Aminotransferase (ALT/SGPT) 10, Alkaline Phosphatase 54, Total Protein 4.5, Albumin 2.6 12/31/21 10:23: Glucometer 140 12/31/21 15:27: Glucometer 173 12/31/21 20:16: Glucometer 199 01/01/22 04:30: White Blood Count 5.4, Red Blood Count 3.53, Hemoglobin 9.3, Hematocrit 29, Mean Corpuscular Volume 82, Mean Corpuscular Hemoglobin 26, Mean Corpuscular Hemoglobin Concent 32, Red Cell Distribution Width 13.4, Platelet Count 260, Mean Platelet Volume 8.7, Immature Granulocyte % (Auto) 1, Neutrophils (%) (Auto) 72, Lymphocytes (%) (Auto) 15, Monocytes (%) (Auto) 7, Eosinophils (%) (Auto) 5, Basophils (%) (Auto) 0, Neutrophils # (Auto) 3.9, Lymphocytes # (Auto) 0.8, Monocytes # (Auto) 0.4, Eosinophils # (Auto) 0.3, Basophils # (Auto) 0.0, Immature Granulocyte # (Auto) 0.0, Sodium Level 140, Potassium Level 3.5, Chloride Level 100, Carbon Dioxide Level 28, Anion Gap 12, Blood Urea Nitrogen 8, Creatinine 0.60, Estimat Glomerular Filtration Rate 91, BUN/Creatinine Ratio 13, Glucose Level 196, Calcium Level 8.2, Corrected Calcium 9.2, Magnesium Level 1.5, Total Bilirubin 0.3, Aspartate Amino Transf (AST/SGOT) 12, Alanine Am inotransferase (ALT/SGPT) 10, Alkaline Phosphatase 55, Total Protein 4.7, Albumin 2.7 01/01/22 11:17: Glucometer 161 01/01/22 16:10: Glucometer 159 01/01/22 20:46: Glucometer 164 01/02/22 04:30: White Blood Count 5.1, Red Blood Count 3.53, Hemoglobin 9.3, Hematocrit 29, Mean Corpuscular Volume 82, Mean Corpuscular Hemoglobin 26, Mean Corpuscular Hemoglobin Concent 32, Red Cell Distribution Width 13.5, Platelet Count 273, Mean Platelet Volume 8.6, Immature Granulocyte % (Auto) 1, Neutrophils (%) (Auto) 77, Lymphocytes (%) (Auto) 12, Monocytes (%) (Auto) 7, Eosinophils (%) (Auto) 3, Basophils (%) (Auto) 0, Neutrophils # (Auto) 3.9, Lymphocytes # (Auto) 0.6, Monocytes # (Auto) 0.4, Eosinophils # (Auto) 0.2, Basophils # (Auto) 0.0, Immature Granulocyte # (Auto) 0.0, Sodium Level 140, Potassium Level 3.3, Chloride Level 101, Carbon Dioxide Level 26, Anion Gap 13, Blood Urea Nitrogen 7, Creatinine 0.61, Estimat Glomerular Filtration Rate 91, BUN/Creatinine Ratio 11, Glucose Level 175, Calcium Level 8.1, Corrected Calcium 9.3, Magnesium Level 1.5, Total Bilirubin 0.3, Aspartate Amino Transf (AST/SGOT) 12, Alanine Aminotransferase (ALT/SGPT) 11, Alkaline Phosphatase 49, Total Protein 4.5, Alb umin 2.5 01/02/22 05:33: Glucometer 157 01/02/22 11:54: Glucometer 199 Discharge Home Medications: Active Scripts Active Pantoprazole Sodium 40 Mg Tablet.dr 40 Mg PO DAILY Sucralfate 1 Gram Tablet 1 Gm PO ACHS Olanzapine 2.5 Mg Tablet 5 Mg PO HS Amlodipine Besylate 5 Mg Tablet 5 Mg PO DAILY Lisinopril 20 Mg Tablet 20 Mg PO DAILY Reported Loperamide (Loperamide HCl) 2 Mg Capsule 2 Mg PO QID PRN Flonase Allergy Relief (Fluticasone Propionate) 50 Mcg/Actuation [place].susp 1-2 [place] NSEACH DAILY PRN Metformin HCl 1,000 Mg Tablet 1,000 Mg PO BID Calcium Carbonate 600 Mg Calcium (1500 Mg) Tablet 600 Mg PO DAILY Aspirin EC (Aspirin) 81 Mg Tablet. 81 Mg PO DAILY Memantine HCl 10 Mg Tablet 10 Mg PO BID Glimepiride 1 Mg Tablet 1 Mg PO BID Diphenhydramine HCl 25 Mg Capsule 25 Mg PO BID Fish Oil [place]-3 Softgel ([place]-3S/Dha/Epa/Fish Oil) 980 Mg-253 Mg-647 Mg-1,400 Mg Capsule. 1 Each PO BID Meclizine HCl 25 Mg Tablet 25 Mg PO BID Instructions to patient/family Please see electronic discharge instructions given to patient. JAMES BOWDEN DO Jan 02, 2022 11:56
--- NOTE | 2022-01-02 12:36 | Progress Note ---
MACASHANTI 01/02/22 1236: Progress Note Patient had 3 bowel movements yesterday She reports her abdominal pain much improved She reports her overall pain has diminished She is tolerating clear liquid diet NG tube still placed Accompanied by 9 day hospital course: 81 year old white female is admitted to ICU on 12-25-2021 for status post colectomy with ileorectal anastamosis due to history of colon cancer. She was intubated after surgery secondary to not coming out of anesthesia and was transferred to the ICU. The next day she was extubated and placed on Bipap. NG was placed on 12-26-2021 and subsequently removed on 12-27-2021. Patients pain, diabetes, and hypertension were managed throughout her stay. Later in her stay medication was added to manage her hypertension, which included clonidine, hydralazine, and furosemide on (01-01-2022). Patient did have complaints of waxing and waning pain, nausea, and vomiting throughout her stay which were managed appropriately. Patient did not have a bowel movement for 7 days after surgery, causing her a small bowel obstruction. NG was then placed again on 01-01-2022 and she then had 3 bowel movements later that day. The patients dementia was evident throughout her stay with some days being better than others. Last encounter with patient showed improved pain control, mental status, and overall status. Assessment and Plan Small bowel obstruction- Found today on Xray (01-01-2022)- Resolved NG tube placed S/p subtotal colectomy w/ileorectal anastamosis POD #8 Monitor labs Monitor hydration Consult surgery Colon cancer Post op care in coordination with her surgeon, Dr. Parks Receiving IV fluids LR 75cc/hr Continue pain management - well controlled at this time T2DM Receiving Novolog (sliding scale) HTN Restarted home meds- Added hydralazine, furosemide, clonidine and amlodipine Dementia Postop urinary retention requiring Benítez catheter placement again- started Urecholine 3 days ago Transfer to swing bed MAYRA BOWDEN DO 01/02/22 2013: Supervisory-Addendum Brief Verification & Attestation Participated in pt care: history, MDM, physical Personally performed: exam, history, MDM, supervision of care Care discussed with: Medical Student Procedures: n/a Results interpretation: Verified all documentation Verification and Attestation of Medical Student E/M Service A medical student performed and documented this service in my presence. I reviewed and verified all information documented by the medical student and made modifications to such information, when appropriate. I personally performed the physical exam and medical decision making. Mayra Bowden, Jan 02, 2022,20:13 ASHANTI WATTS Jan 02, 2022 12:36 MAYRA BOWDEN DO Jan 02, 2022 20:13
== END 2022-01-02 12:02 | disposition swing bed (61) | DRG 330 ==
LOC: 4TH 09:13 → SURG 09:14 → ICU 18:30 → 4TH 12-28 12:05
PROVIDERS: ADMIT Surgery; ATTEND Surgery
PROC: 0DTL0ZZ Resection of Transverse Colon, Open Approach (ICD-10-PCS; 2021-12-25)
PROC: 0DTK0ZZ Resection of Ascending Colon, Open Approach (ICD-10-PCS; 2021-12-25)
PROC: 0DTH0ZZ Resection of Cecum, Open Approach (ICD-10-PCS; 2021-12-25)
PROC: 5A09357 Assistance with Respiratory Ventilation, Less than 24 Consecutive Hours, Continuous Positive Airway Pressure (ICD-10-PCS; 2021-12-25)
PROC: 0DTG0ZZ Resection of Left Large Intestine, Open Approach (ICD-10-PCS; principal; 2021-12-25 11:34)
DX: C18.4 Malignant neoplasm of transverse colon (principal); K56.609 Unspecified intestinal obstruction, unspecified as to partial versus complete obstruction; F05 Delirium due to known physiological condition; Z68.41 Body mass index [BMI] 40.0-44.9, adult; K25.9 Gastric ulcer, unspecified as acute or chronic, without hemorrhage or perforation; I10 Essential (primary) hypertension; R33.9 Retention of urine, unspecified; J98.4 Other disorders of lung; Z66 Do not resuscitate; F03.90 Unspecified dementia, unspecified severity, without behavioral disturbance, psychotic disturbance, mood disturbance, and anxiety; E11.9 Type 2 diabetes mellitus without complications; D64.9 Anemia, unspecified; R09.02 Hypoxemia; E66.9 Obesity, unspecified; E78.5 Hyperlipidemia, unspecified; Z87.820 Personal history of traumatic brain injury; Z87.891 Personal history of nicotine dependence; Z79.84 Long term (current) use of oral hypoglycemic drugs; Z79.52 Long term (current) use of systemic steroids; Z88.0 Allergy status to penicillin; Z88.2 Allergy status to sulfonamides
CPT/HCPCS: 36415; 71045; 74019; 80048; 80053; 82947; 83735; 85025; 85027; 86850; 86900; 86901; 87081; 94640; 94660; 94664; 94760

== ENCOUNTER 2022-01-01 09:19 | Inpatient (IN) | payer MEDICARE ==
[~2022-01-01] VITALS: Ht 157 cm; Wt 98.1 kg
[2022-01-02 12:00] VITALS: BP 170/76
[2022-01-02] MEDS ORDERED: HALOPERIDOL 5 MG/ML (HALDOL) VIAL IM PRN (12:15)
[2022-01-02] MEDS ORDERED: NITROGLYCERIN 2% OINT 1 GM UNIT DOSE PACKET TOP PRN (12:15)
[2022-01-02] MEDS ORDERED: CHLORASEPTIC SPRAY 177 ML LIQUID MC PRN (12:15)
[2022-01-02] MEDS ORDERED: POTASSIUM CL 10MEQ/50ML IVPB 50 ML IV SCH (12:15)
--- NOTE | 2022-01-02 13:27 | Physical Therapy Evaluation ---
PT Evaluation-General Medical Diagnosis Admission Date Jan 02, 2022 at 12:45 Medical Diagnosis: colon cancer Onset Date: Dec 27, 2021 Therapy Diagnosis Therapy Diagnosis: generalized weakness/debility Precautions Precautions/Isolations: Fall Prevention, Standard Precautions Referral Physician: Karla Reason for Referral: Evaluation/Treatment Medical History Pertinent Medical History: DM, Dementia, HTN, TBI Current History SWB status secondary to s/p colon resection due to colon cancer Reviewed History: Yes Social History Home: Single Level Current Living Status: Spouse Prior Prior Level of Function SCALE: Activities may be completed with or without assistive devices. 7-Ilwzqjtrjd-jpekmlc completes the activity by him/herself with no assistance from a helper. 5-Set-up or Clean-up Assistance-helper sets up or cleans up; patient completes activity. [place] assists only prior to or following the activity. 4-Supervision or Touching Assistance-helper provides verbal cues and/or touching/steadying and/or contact guard assistance as patient completes activity. Assistance may be provided throughout the activity or intermittently. 3-Partial/Moderate Assistance-helper does LESS THAN HALF the effort. [place] lifts, holds or supports trunk or limbs, but provides less than half the effort. 2-Substantial/Maximal Assistance-helper does MORE THAN HALF the effort. [place] lifts or holds trunk or limbs and provides more than half the effort. 0-Zrvndvvzc-ihseet does ALL the effort. Patient does none of the effort to complete the activity. Or, the assistance of 2 or more helpers is required for the patient to complete the activity. If activity was not attempted, code reason: 7-Patient Refused. 9-Not Applicable-not attempted and the patient did not perform the activity before the current illness, exacerbation or injury. 10-Not Attempted due to Environmental Limitations-(lack of equipment, weather restraints, etc.). 88-Not Attempted due to Medical Conditions or Safety Concerns. Bed Mobility: 4 Transfers (B,C,W/C): 4 Gait: 4 Indoor Mobility (Ambulation): Needed Some Help Prior Devices Use: Walker PT Evaluation-Current Subjective Patient c/o 8/10 abdominal pain. RN aware. 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 Wheelchair Training Wheel 50 ft with 2 turns (QC): 9 Wheel 150 ft (QC): 9 Stairs 1 Step (curb) (QC): 9 4 Steps (QC): 9 12 Steps (QC): 9 Balance Sitting Static: Normal Sitting Dynamic: Normal Standing Static: Fair Standing Dynamic: Poor Picking up an Object (QC): 88 Treatment Gait training with FWW with VC's for posture and gait sequence x 50' mod assist with gait belt use. Assessment/Needs 81 y.o. female, will benefit from skilled PT to address functional strength and mobility to improve current LOF to safely return to home or care facility at maximum LOF. Rehab Potential: Guarded PT Neurosurgical Nurse Goals [facility] Goals PT Neurosurgical Nurse Goals Time Frame: Feb 01, 2022 Roll Left & Right (QC): 4 Sit to Lying (QC): 4 Lying-Sitting on Side/Bed(QC): 4 Sit to Stand (QC): 4 Chair/Fxy-ma-Eufvu Xfer(QC): 4 Toilet Transfer (QC): 4 Car Transfer (QC): 4 Does the Patient Walk: Yes Walk 10 feet (QC): 4 Walk 50ft with 2 Turns (QC): 4 Walk 150 ft (QC): 4 Walking 10ft on Uneven Surface: 4 1 Step (curb) (QC): 4 4 Steps (QC): 9 12 Steps (QC): 9 Picking up an Object (QC): 4 Does the Pt use WC or Scooter?: No Wheel 50 feet with 2 turns (QC: 9 Type: N/A Wheel 150 feet: 9 Type: N/A PT Plan Problem List Problem List: Activity Tolerance, Functional Strength, Safety, Balance, Gait, Transfer, Bed Mobility Treatment/Plan Treatment Plan: Continue Plan of Care Treatment Plan: Bed Mobility, Education, Functional Activity Pat, Functional Strength, Gait, Safety, Therapeutic Exercise, Transfers Treatment Duration: Feb 01, 2022 Frequency: 11 times per week Estimated Hrs Per Day: .5 hour per day Patient and/or Family Agrees t: Yes Safety Risks/Education Patient Education: Safety Issues Teaching Recipient: Patient Teaching Methods: Discussion Response to Teaching: Verbalize Understanding Time/GCodes Time In: 1250 Time Out: 1313 Total Billed Treatment Time: 23 Total Billed Treatment 1 visit EVModC 8 min GT 15 min BAILEY CHÁVEZ PT Jan 02, 2022 13:27
[2022-01-02] MEDS: LACTATED RINGERS 1,000 ML IV SCH ×2 (13:55→18:53)
[2022-01-02] MEDS: ENOXAPARIN 40 MG/0.4 ML (LOVENOX) SYR SC SCH (13:55)
[2022-01-02] MEDS ORDERED: RT-ALBUTEROL/IPRATROPIUM 3 ML (DUONEB) VIAL INH PRN (15:00)
--- NOTE | 2022-01-02 15:30 | Occ Therapy Progress Note ---
Therapy Progress Note OT orders received after pt transferred to [facility] status. OT attempted evaluation at 1450, but pt pleasantly declined services at this time due to fatigue and requesting to rest. Pt had an acute OT tx earlier this morning, and had completed a shower. Pt requests to complete OT evaluation tomorrow. OT will attempt evaluation/tx tomorrow per pt request. 1, refusal KARI ELIZONDO OT Jan 02, 2022 15:30
[2022-01-02] MEDS: BETHANECHOL 25 MG (URECHOLINE) TAB PO SCH ×2 (16:16→21:01)
[2022-01-02] MEDS: inSUlin ASPART (NovoLOG) 1 UNIT/0.01 ML (CHARGE PER UNIT) SC SCH ×2 (16:16→20:23)
[2022-01-02 16:18] VITALS: BP 125/79
[2022-01-02] MEDS: ONDANSETRON 4 MG/2 ML (SDV) Z0FRAN IVP PRN (18:07)
[2022-01-02 19:25] VITALS: BP 127/77
[2022-01-02] MEDS: morphine INJ 4 MG/ML 1 ML (VIAL/SYRINGE) IV PRN (20:22)
[2022-01-02] MEDS: RT-ALBUTEROL/IPRATROPIUM 3 ML (DUONEB) VIAL INH SCH (21:44)
[2022-01-03] VITALS (8 sets, daily range): BP systolic 129–198; BP diastolic 58–82
[2022-01-03] MEDS: inSUlin ASPART (NovoLOG) 1 UNIT/0.01 ML (CHARGE PER UNIT) SC SCH ×4 (05:52→20:35)
[2022-01-03] MEDS: PANTOPRAZOLE 40 MG (PROTONIX) TAB PO SCH (05:59)
[2022-01-03] MEDS: BETHANECHOL 25 MG (URECHOLINE) TAB PO SCH ×4 (05:59→20:35)
--- NOTE | 2022-01-03 06:24 | Progress Note - Surgery ---
DARREN SILVA 01/03/22 0624: Subjective Date Seen by a Provider: Jan 03, 2022 Time Seen by a Provider: 06:19 Subjective/Events-last exam Patient is awake and alert in her bed this morning. Patient reports that her nausea and pain are well controlled. Patient reports no new symptoms. Patient states she has been ambulating more yesterday and using her IS. Patient states she continues to have bowel movements. Review of Systems General: No Chills, No Night Sweats HEENT: No Head Aches, No Visual Changes Pulmonary: No Dyspnea, No Cough Cardiovascular: No: Chest Pain, Palpitations Gastrointestinal: No: Vomiting, Melena Genitourinary: No Dysuria, No Frequency Musculoskeletal: No: neck pain, shoulder pain Neurological: Weakness; No: Numbness Objective Exam Vital Signs Date Time Temp Pulse Resp B/P (MAP) Pulse Ox O2 Delivery O2 Flow Rate FiO2 01/03/22 03:49 36.2 90 18 155/70 (98) 95 Room Air 01/03/22 00:00 36.1 99 18 158/77 (104) 95 Room Air 01/02/22 21:45 92 Room Air 01/02/22 20:15 Room Air 01/02/22 19:25 37.1 109 20 127/77 (94) 94 Room Air 01/02/22 16:18 36.8 109 20 125/79 (94) 97 Room Air 01/02/22 13:24 108 92 21 01/02/22 12:00 35.7 112 17 170/76 (107) 91 Room Air I & O 01/03/22 06:59 Intake Total 150 ml Output Total 550 ml Balance -400 ml Capillary Refill : General Appearance: No Apparent Distress, WD/WN, Obese HEENT: PERRL/EOMI, Normal ENT Inspection Neck: Full Range of Motion, Non Tender Respiratory: No Accessory Muscle Use, No Respiratory Distress Cardiovascular: Regular Rate, Rhythm, No Edema Gastrointestinal: soft, no organomegaly Extremity: Normal Inspection, Normal Range of Motion, Non Tender Neurologic/Psychiatric: Alert, Disoriented Skin: Normal Color, Warm/Dry Results Lab Laboratory Tests 01/02/22 16:32: Glucometer 179H 01/02/22 20:14: Glucometer 200H 01/03/22 05:31: Glucometer 167H Assessment/Plan Assessment/Plan Assessment/Plan S/p subtotal colectomy w/ileorectal anastamosis Colon cancer N/V Postop urinary retention Obesity Postop ileus Pt encouraged to continue working with PT to ambulate, chew gum (which should help with bowel function) and use IS as much as possible. Continue hoffman catheter for accurate i/o Continue pain control. Continue antiemetics NG tube clamped yesterday. KEERTHI PARKS DO 01/03/222044: Subjective Subjective/Events-last exam Nausea and pain improved. She is still having bowel movements. She is tolerating some clears. She still has NG tube in place. Denies any nausea vomi ting fever sweats chills shortness of breath or chest pain. Still weak though. at bedside. Objective Exam General Appearance: No Apparent Distress, Chronically ill, Obese HEENT: PERRL/EOMI, Normal ENT Inspection Neck: Full Range of Motion, Non Tender Respiratory: Chest Non Tender, No Accessory Muscle Use, No Respiratory Distress Cardiovascular: Regular Rate, Rhythm, No JVD Gastrointestinal: soft, other (Incisions clean dry intact no signs of infection) Extremity: Normal Inspection, Non Tender Neurologic/Psychiatric: Alert, Disoriented Skin: Normal Color, Warm/Dry Lymphatic: No Adenopathy Assessment/Plan Assessment/Plan Assessment/Plan S/p subtotal colectomy w/ileorectal anastamosis Colon cancer N/V Postop urinary retention Obesity Postop ileus Pt encouraged to continue working with PT to ambulate, chew gum (which should help with bowel function) and use IS as much as possible. Continue pain control. Continue antiemetics NG tube clamped yesterday-remove looking at placement options. Discussed with and daughter. Supervisory-Addendum Brief Verification & Attestation Participated in pt care: history, MDM, physical Personally performed: exam, history, MDM, supervision of care Care discussed with: Medical Student Procedures: n/a Results interpretation: Verified all documentation Verification and Attestation of Medical Student E/M Service A medical student performed and documented this service in my presence. I reviewed and verified all information documented by the medical student and made modifications to such information, when appropriate. I personally performed the physical exam and medical decision making. Keerthi Parks, Jan 03, 2022,20:45 DARREN SILVA Jan 03, 2022 06:24 KEERTHI PARKS DO Jan 03, 2022 20:45
[2022-01-03 07:01] LABS: BASOPHILS % (AUTO) 1 % (0-10); EOSINOPHILS # (AUTO) 0.1 10^3/uL (0.0-0.3); EOSINOPHILS % (AUTO) 3 % (0-10); HEMATOCRIT 29 % (35-52); HEMOGLOBIN 9.2 g/dL (11.5-16.0); LYMPHOCYTES # (AUTO) 0.6 10^3/uL (1.0-4.0); LYMPHOCYTES % (AUTO) 12 % (12-44); MEAN CORPUSCULAR HEMOGLOBIN 27 pg (25-34); MEAN CORPUSCULAR HGB CONC 32 g/dL (32-36); MEAN CORPUSCULAR VOLUME 83 fL (80-99); MEAN PLATELET VOLUME 8.7 fL (9.0-12.2); MONOCYTES # (AUTO) 0.4 10^3/uL (0.0-1.0); MONOCYTES % (AUTO) 7 % (0-12); NEUTROPHILS # (AUTO) 3.9 10^3/uL (1.8-7.8); NEUTROPHILS % (AUTO) 77 % (42-75); PLATELET COUNT 280 10^3/uL (130-400)
[2022-01-03 07:14] LABS: ALBUMIN 2.6 GM/DL (3.2-4.5); POTASSIUM 3.2 MMOL/L (3.6-5.0)
[2022-01-03] MEDS: RT-ALBUTEROL/IPRATROPIUM 3 ML (DUONEB) VIAL INH SCH ×2 (07:14→20:02)
[2022-01-03 07:16] LABS: CALCIUM 8.1 MG/DL (8.5-10.1)
[2022-01-03 07:17] LABS: TOTAL PROTEIN 4.7 GM/DL (6.4-8.2)
[2022-01-03 07:19] LABS: BILIRUBIN,TOTAL 0.3 MG/DL (0.1-1.0)
[2022-01-03 07:20] LABS: CREATININE SERUM 0.63 MG/DL (0.60-1.30)
[2022-01-03] MEDS: hydrALAZINE (APESOLINE) 20 MG/ML VIAL IV PRN ×2 (08:12→16:12)
[2022-01-03] MEDS: LACTATED RINGERS 1,000 ML IV SCH ×2 (08:12→20:41)
--- NOTE | 2022-01-03 10:46 | Physical Therapy Daily Note ---
PT Daily Note-Current Subjective Pt reports she has been up in the chair most of the morning. She has had several bouts of bowel incontinence. Mental Status Attachments: Central Line, Oxygen, Benítez Catheter Transfers SCALE: Activities may be completed with or without assistive devices. 7-Mdgatewdta-tvodaeb completes the activity by him/herself with no assistance from a helper. 5-Set-up or Clean-up Assistance-helper sets up or cleans up; patient completes activity. [place] assists only prior to or following the activity. 4-Supervision or Touching Assistance-helper provides verbal cues and/or touching/steadying and/or contact guard assistance as patient completes activity. Assistance may be provided throughout the activity or intermittently. 3-Partial/Moderate Assistance-helper does LESS THAN HALF the effort. [place] lifts, holds or supports trunk or limbs, but provides less than half the effort. 2-Substantial/Maximal Assistance-helper does MORE THAN HALF the effort. [place] lifts or holds trunk or limbs and provides more than half the effort. 7-Zdfcbgqfv-dnbtfs does ALL the effort. Patient does none of the effort to complete the activity. Or, the assistance of 2 or more helpers is required for the patient to complete the activity. If activity was not attempted, code reason: 7-Patient Refused. 9-Not Applicable-not attempted and the patient did not perform the activity before the current illness, exacerbation or injury. 10-Not Attempted due to Environmental Limitations-(lack of equipment, weather restraints, etc.). 88-Not Attempted due to Medical Conditions or Safety Concerns. Sit to Stand (QC): 4 Gait Training Gait Assistive Device: FWW Ambulate trials of 6ft and 4ft with FWW and Min A. Pt self limited due to abdominal pain. On the second trial patient had incontinence of bowel. Stood for clean up and following this activity was too tired to continue gait training. Assessment Decline in mobility as compared to yesterday. Pt self limits and needs encouragement to push herself physically. Pt will benefit from continued therapy to improve strength and mobility. PT Political Cartoonist Goals [facility] Goals PT Political Cartoonist Goals Time Frame: Feb 01, 2022 Roll Left & Right (QC): 4 Sit to Lying (QC): 4 Lying-Sitting on Side/Bed(QC): 4 Sit to Stand (QC): 4 Chair/Buk-oz-Eskst Xfer(QC): 4 Toilet Transfer (QC): 4 Car Transfer (QC): 4 Does the Patient Walk: Yes Walk 10 feet (QC): 4 Walk 50ft with 2 Turns (QC): 4 Walk 150 ft (QC): 4 Walking 10ft on Uneven Surface: 4 1 Step (curb) (QC): 4 4 Steps (QC): 9 12 Steps (QC): 9 Picking up an Object (QC): 4 Does the Pt use WC or Scooter?: No Wheel 50 feet with 2 turns (QC: 9 Type: N/A Wheel 150 feet: 9 Type: N/A PT Plan Treatment/Plan Treatment Plan: Continue Plan of Care Treatment Plan: Bed Mobility, Education, Functional Activity Pat, Functional Strength, Gait, Safety, Therapeutic Exercise, Transfers Treatment Duration: Feb 01, 2022 Frequency: 11 times per week Estimated Hrs Per Day: .5 hour per day Patient and/or Family Agrees t: Yes Time/GCodes Time In: 905 Time Out: 930 Total Billed Treatment Time: 25 Total Billed Treatment visit, gait 15min, FA 10 min TRAV CASTILLO PT Jan 03, 2022 10:46
[2022-01-03] MEDS: HYDROcodone/APAP 5 MG/325 MG (LORTAB) TAB PO PRN ×2 (10:50→20:36)
[2022-01-03] MEDS ORDERED: amLODIPine 5 MG (NORVASC) TAB PO NR (11:00)
[2022-01-03] MEDS ORDERED: MAGNESIUM 1 GM/100 ML IVPB 100 ML IV NR (11:00)
--- NOTE | 2022-01-03 11:29 | Occupational Therapy Eval ---
OT Evaluation-General/PLF Medical Diagnosis Admission Date Jan 02, 2022 at 12:45 Medical Diagnosis: colon cancer Onset Date: Dec 27, 2021 Therapy Diagnosis Therapy Diagnosis: decreased ADL status, weakness Precautions Precautions/Isolations: Fall Prevention, Standard Precautions Referral Physician: Karla Larios Reason: Evaluation/Treatment Medical History Pertinent Medical History: DM, Dementia, HTN, TBI Additional Medical History HTN, dementia, DM, cataract, TBI Current History s/p subtotal colectomy with ileorectal anastamosis Social History Home: Single Level Current Living Status: Spouse ADL-Prior Level of Function SCALE: Activities may be completed with or without assistive devices. 6-Snhdmpllyw-anmqylh completes the activity by him/herself with no assistance from a helper. 5-Set-up or Clean-up Assistance-helper sets up or cleans up; patient completes activity. [place] assists only prior to or following the activity. 4-Supervision or Touching Assistance-helper provides verbal cues and/or touching/steadying and/or contact guard assistance as patient completes activity. Assistance may be provided throughout the activity or intermittently. 3-Partial/Moderate Assistance-helper does LESS THAN HALF the effort. [place] lifts, holds or supports trunk or limbs, but provides less than half the effort. 2-Substantial/Maximal Assistance-helper does MORE THAN HALF the effort. [place] lifts or holds trunk or limbs and provides more than half the effort. 9-Gkoudnckb-atuhdm does ALL the effort. Patient does none of the effort to complete the activity. Or, the assistance of 2 or more helpers is required for the patient to complete the activity. If activity was not attempted, code reason: 7-Patient Refused. 9-Not Applicable-not attempted and the patient did not perform the activity before the current illness, exacerbation or injury. 10-Not Attempted due to Environmental Limitations-(lack of equipment, weather restraints, etc.). 88-Not Attempted due to Medical Conditions or Safety Concerns. ADL PLOF Comments Pt reports IND with ADLs prior to recent hospitalizations, and uses a walker for functional mobility. She has a walk in shower with SC Self Care: Independent Functional Cognition: Independent OT Current Status Subjective Pt up in recliner, agreeable to OT evaluation/tx. Family member present. Mental Status/Objective Attachments: NG Tube, Oxygen Current Upper Extremity ROM WFL, BUE shoulder flexion to approx 120 degrees Upper Extremity Coordination WFL Upper Extremity Strength grossly 3/5 ADL-Treatment Eating (QC): 5 (Liquid diet) Oral Hygiene (QC): 3 (Min A from OT with basin and cup for rinsing) Shower/Bathe Self (QC): 2 (Per OT tx yesterday, max A. Pt declined completing shower today.) Upper Body Dressing (QC): 3 (Per clincial judgment.) Lower Body Dressing (QC): 1 (Per clincial judgment) On/Off Footwear (QC): 1 (Per clincial judgment) Toileting Hygiene (QC): 1 (Per clincial judgment) Other Treatments Pt up in recliner, agreeable to OT evaluation and tx. Pt declined showering or dressing tasks, as she had just completed yesterday. Pt agreeable to oral care, face washing and hair brushing. QC scores based on tx session today and yesterday. Pt able to complete oral care, min A for OT holding basin and assisting with rinse cup and washcloth on mouth. Pt able to wash face and comb hair with set up assist, slow pace. Post tx, pt in recliner, call light in reach and all needs met. Education OT Patient Education: Correct positioning, Energy conservation, Modified ADL techniques, Progress toward Goal/Update tx plan, Purpose of tx/functional activities, Rehab process Teaching Recipient: Patient Teaching Methods: Discussion Response to Teaching: Verbalize Understanding OT Still Cleaner Tube Goals [facility] Goals Time Frame: Jan 24, 2022 Eating (QC): 6 Oral Hygiene (QC): 5 Toileting Hygiene (QC): 4 Shower/Bathe Self (QC): 4 Upper Body Dressing (QC): 5 Lower Body Dressing (QC): 4 On/Off Footwear (QC): 4 Additional Goals: 1-Demonstrate ADL Tasks, 2-Verbalize Understanding, 3- ImproveStrength/Pat 1=Demonstrate adherence to instructed precautions during ADL tasks. 2=Patient will verbalize/demonstrate understanding of assistive devices/modifications for ADL. 3=Patient will improve strength/tolerance for activity to enable patient to perform ADL's. OT Education/Plan Problem List/Assessment Assessment: Decreased Activ Tolerance, Decreased UE Strength, Impaired Funct Balance, Impaired I ADL's, Impaired Self-Care Skills Discharge Recommendations Plan/Recommendations: Continue POC Treatment Plan/Plan of Care Patient would benefit from OT for education, treatment and training to promote independence in ADL's, mobility, safety and/or upper extremity function for ADL's. Plan of Care: ADL Retraining, Functional Mobility, UE Funct Exercise/Act Treatment Duration: Jan 24, 2022 Frequency: 5 times per week Estimated Hrs Per Day: .25 hour per day Rehab Potential: Guarded Time/GCodes Start Time: 10:30 Stop Time: 10:55 Total Time Billed (hr/min): 25 Billed Treatment Time 1, EVM (10'), ADL (15') KARI ELIZONDO OT Jan 03, 2022 11:29
[2022-01-03] MEDS: ENOXAPARIN 40 MG/0.4 ML (LOVENOX) SYR SC SCH (11:31)
[2022-01-03] MEDS: POTASSIUM CL 10MEQ/50ML IVPB 50 ML IV SCH ×6 (11:35→17:29)
--- NOTE | 2022-01-03 12:15 | Progress Note ---
ASHANTI WATTS 01/03/22 1215: Subjective Date Seen by a Provider: Jan 03, 2022 Time Seen by a Provider: 12:10 Subjective/Events-last exam Patient is still feeling well today. Pain in improving Tolerating diet well PT evaluation done yesterday Labs reviewed Monitoring BP Objective Exam Last Set of Vital Signs Vital Signs Date Time Temp Pulse Resp B/P (MAP) Pulse Ox O2 Delivery O2 Flow Rate FiO2 01/03/22 09:00 Room Air 01/03/22 08:12 36.3 100 19 188/81 (116) 90 01/02/22 13:24 21 Capillary Refill : I&O Intake and Output 01/03/22 00:00 Intake Total 100 ml Output Total 300 ml Balance -200 ml Intake Oral 100 ml Output Urine Total 300 ml General: Alert, Cooperative, No Acute Distress HEENT: PERRLA Neck: Supple, No JVD Lungs: Clear to Auscultation Heart: Regular Rate, No Murmurs Abdomen: No Hepatosplenomegaly, No Masses Extremities: No Clubbing, No Cyanosis Skin: No Rashes, No Breakdown Neuro: Normal Gait, Normal Speech, Normal Tone, Sensation Intact Results Lab Laboratory Tests 01/02/22 16:32: Glucometer 179H 01/02/22 20:14: Glucometer 200H 01/03/22 05:31: Glucometer 167H 01/03/22 06:55: White Blood Count 5.0, Red Blood Count 3.46L, Hemoglobin 9.2L, Hematocrit 29L, Mean Corpuscular Volume 83, Mean Corpuscular Hemoglobin 27, Mean Corpuscular Hemoglobin Concent 32, Red Cell Distribution Width 13.8, Platelet Count 280, Mean Platelet Volume 8.7L, Immature Granulocyte % (Auto) 1, Neutrophils (%) (Auto) 77H, Lymphocytes (%) (Auto) 12, Monocytes (%) (Auto) 7, Eosinophils (%) (Auto) 3, Basophils (%) (Auto) 1, Neutrophils # (Auto) 3.9, Lymphocytes # (Auto) 0.6L, Monocytes # (Auto) 0.4, Eosinophils # (Auto) 0.1, Basophils # (Auto) 0.0, Immature Granulocyte # (Auto) 0.0, Sodium Level 141, Potassium Level 3.2L, Chloride Level 99, Carbon Dioxide Level 29, Anion Gap 13, Blood Urea Nitrogen 8, Creatinine 0.63, Estimat Glomerular Filtration Rate 90, BUN/Creatinine Ratio 13, Glucose Level 189H, Calcium Level 8.1L, Corrected Calcium 9.2, Magnesium Level 1.3L, Total Bilirubin 0.3, Aspartate Amino Transf (AST/SGOT) 15, Alanine Aminotransferase (ALT/SGPT) 13, Alkaline Phosphatase 59, Total Protein 4.7L, Albumin 2.6L 01/03/22 11:40: Glucometer 180H Assessment/Plan Assessment/Plan Assess & Plan/Chief Complaint Assessment and Plan S/p subtotal colectomy w/ileorectal anastamosis POD #9 Small bowel obstruction- Found today on Xray (01-01-2022)- Resolved NG in place Hypokalemia Latest at 3.2- continue to monitor and replace Monitor labs Give IV magnesium and monitor value Monitor hydration Consult surgery Colon cancer Post op care in coordination with her surgeon, Dr. Parks Receiving IV fluids LR 75cc/hr Continue pain management - well controlled at this time T2DM Receiving Novolog (sliding scale) HTN Restarted home meds continue to monitor- Added meds hydralazine, furosemide, clonidine and amlodipine Dementia Postop urinary retention requiring Benítez catheter Transferred to swing bed MAYRA BOWDEN DO 01/04/22 0535: Subjective Subjective/Events-last exam Pt is doing well Potassium of 3.2 will give 60 meq IV Checked meds and labs is at the bedside NG tube still in place Supervisory-Addendum Brief Verification & Attestation Participated in pt care: history, MDM, physical Personally performed: exam, history, MDM, supervision of care Care discussed with: Medical Student Procedures: n/a Results interpretation: Verified all documentation Verification and Attestation of Medical Student E/M Service A medical student performed and documented this service in my presence. I reviewed and verified all information documented by the medical student and made modifications to such information, when appropriate. I personally performed the physical exam and medical decision making. Mayra Bowden, Jan 04, 2022,05:34 ASHANTI WATTS Jan 03, 2022 12:15 MAYRA BOWDEN DO Jan 04, 2022 05:35
--- NOTE | 2022-01-03 14:05 | Physical Therapy Daily Note ---
PT Daily Note-Current Subjective Pt requests to get back into bed. She has been up since early am in the bedside chair. Transfers SCALE: Activities may be completed with or without assistive devices. 3-Eexhfurkll-tyixabh completes the activity by him/herself with no assistance from a helper. 5-Set-up or Clean-up Assistance-helper sets up or cleans up; patient completes activity. Kensal assists only prior to or following the activity. 4-Supervision or Touching Assistance-helper provides verbal cues and/or touching/steadying and/or contact guard assistance as patient completes activity. Assistance may be provided throughout the activity or intermittently. 3-Partial/Moderate Assistance-helper does LESS THAN HALF the effort. Kensal lifts, holds or supports trunk or limbs, but provides less than half the effort. 2-Substantial/Maximal Assistance-helper does MORE THAN HALF the effort. Kensal lifts or holds trunk or limbs and provides more than half the effort. 8-Bxjtulfou-etgtse does ALL the effort. Patient does none of the effort to complete the activity. Or, the assistance of 2 or more helpers is required for the patient to complete the activity. If activity was not attempted, code reason: 7-Patient Refused. 9-Not Applicable-not attempted and the patient did not perform the activity before the current illness, exacerbation or injury. 10-Not Attempted due to Environmental Limitations-(lack of equipment, weather restraints, etc.). 88-Not Attempted due to Medical Conditions or Safety Concerns. Sit to Stand (QC): 3 Chair/Qdh-be-Ykbfq Xfer(QC): 3 Gait Training Gait Assistive Device: FWW Ambulate 10ft with FWW and Min-Mod A for stability. Assessment Current Status: Poor Progress Limited gait distance and tolerance to activity this date. Pt required maximal assistance of 2 people to return to bed. PT Processing Clerk Goals Processing Clerk Goals PT Long-Term Goals Time Frame: Feb 01, 2022 Roll Left & Right (QC): 4 Sit to Lying (QC): 4 Lying-Sitting on Side/Bed(QC): 4 Sit to Stand (QC): 4 Chair/Qks-hd-Ruzec Xfer(QC): 4 Toilet Transfer (QC): 4 Car Transfer (QC): 4 Does the Patient Walk: Yes Walk 10 feet (QC): 4 Walk 50ft with 2 Turns (QC): 4 Walk 150 ft (QC): 4 Walking 10ft on Uneven Surface: 4 1 Step (curb) (QC): 4 4 Steps (QC): 9 12 Steps (QC): 9 Picking up an Object (QC): 4 Does the Pt use WC or Scooter?: No Wheel 50 feet with 2 turns (QC: 9 Type: N/A Wheel 150 feet: 9 Type: N/A PT Plan Treatment/Plan Treatment Plan: Continue Plan of Care Treatment Plan: Bed Mobility, Education, Functional Activity Pat, Functional Strength, Gait, Safety, Therapeutic Exercise, Transfers Treatment Duration: Feb 01, 2022 Frequency: 11 times per week Estimated Hrs Per Day: .5 hour per day Patient and/or Family Agrees t: Yes Time/GCodes Time In: 1330 Time Out: 1350 Total Billed Treatment Time: 20 Total Billed Treatment visit, GT 15min, FA 5 min TRAV CASTILLO PT Jan 03, 2022 14:05
[2022-01-03] MEDS: ONDANSETRON 4 MG/2 ML (SDV) Z0FRAN IVP PRN (18:37)
[2022-01-03] MEDS: morphine INJ 4 MG/ML 1 ML (VIAL/SYRINGE) IV PRN (22:50)
[2022-01-04 03:28] VITALS: BP 113/51
[2022-01-04] MEDS: inSUlin ASPART (NovoLOG) 1 UNIT/0.01 ML (CHARGE PER UNIT) SC SCH ×4 (05:14→20:37)
[2022-01-04] MEDS: PANTOPRAZOLE 40 MG (PROTONIX) TAB PO SCH (05:28)
[2022-01-04] MEDS: BETHANECHOL 25 MG (URECHOLINE) TAB PO SCH ×4 (05:28→20:24)
--- NOTE | 2022-01-04 07:16 | Progress Note ---
Subjective Date Seen by a Provider: Jan 04, 2022 Time Seen by a Provider: 10:00 Subjective/Events-last exam Doing well NGT DC No pain at bedside No falls Working with therapy Review of Systems General: Fatigue, Malaise Neurological: Confusion Objective Exam Last Set of Vital Signs Vital Signs Date Time Temp Pulse Resp B/P (MAP) Pulse Ox O2 Delivery O2 Flow Rate FiO2 01/04/22 03:28 36.5 103 18 113/51 (71) 92 Room Air 01/03/22 15:12 2.00 01/02/22 13:24 21 Capillary Refill : I&O Intake and Output 01/03/22 23:59 Intake Total 740 ml Output Total 650 ml Balance 90 ml Intake Oral 640 ml IV Total 100 ml Output Urine Total 650 ml General: Alert, Oriented X3, Cooperative, No Acute Distress Lungs: Clear to Auscultation, Normal Air Movement Heart: Regular Rate, Normal S1, Normal S2, No Murmurs Psych/Mental Status: Mental Status NL, Mood NL Results Lab Laboratory Tests 01/03/22 11:40: Glucometer 180H 01/03/22 15:17: Glucometer 184H 01/03/22 20:26: Glucometer 163H 01/04/22 05:11: Glucometer 159H Assessment/Plan Assessment/Plan Assess & Plan/Chief Complaint Assessment and Plan S/p subtotal colectomy w/ileorectal anastamosis POD #10 Small bowel obstruction- Found today on Xray (01-01-2022)- Resolved NGT now DC Hypokalemia Latest at 3.4- continue to monitor and replace Monitor labs Monitor hydration-HLIVF today Consult surgery Colon cancer-will see Oncology after recovery from colon resection complete T2DM Receiving Novolog (sliding scale) HTN Restarted home meds continue to monitor- Added meds hydralazine, furosemide, clonidine and amlodipine Dementia Postop urinary retention requiring Benítez catheter-now DC today Maintain swing bed JAMES BOWDEN DO Jan 04, 2022 07:16
[2022-01-04] MEDS: LACTATED RINGERS 1,000 ML IV SCH (08:21)
[2022-01-04 08:34] VITALS: BP 178/74
[2022-01-04 10:16] LABS: BASOPHILS % (AUTO) 0 % (0-10); EOSINOPHILS # (AUTO) 0.2 10^3/uL (0.0-0.3); EOSINOPHILS % (AUTO) 4 % (0-10); HEMATOCRIT 28 % (35-52); HEMOGLOBIN 8.8 g/dL (11.5-16.0); LYMPHOCYTES # (AUTO) 0.7 10^3/uL (1.0-4.0); LYMPHOCYTES % (AUTO) 15 % (12-44); MEAN CORPUSCULAR HEMOGLOBIN 27 pg (25-34); MEAN CORPUSCULAR HGB CONC 32 g/dL (32-36); MEAN CORPUSCULAR VOLUME 83 fL (80-99); MEAN PLATELET VOLUME 8.7 fL (9.0-12.2); MONOCYTES # (AUTO) 0.4 10^3/uL (0.0-1.0); MONOCYTES % (AUTO) 7 % (0-12); NEUTROPHILS # (AUTO) 3.7 10^3/uL (1.8-7.8); NEUTROPHILS % (AUTO) 74 % (42-75); PLATELET COUNT 277 10^3/uL (130-400); WHITE BLOOD COUNT 5.1 10^3/uL (4.3-11.0)
[2022-01-04] MEDS: HYDROcodone/APAP 5 MG/325 MG (LORTAB) TAB PO PRN ×2 (10:26→14:43)
[2022-01-04 10:28] LABS: ALBUMIN 2.6 GM/DL (3.2-4.5); POTASSIUM 3.4 MMOL/L (3.6-5.0)
[2022-01-04 10:30] LABS: TOTAL PROTEIN 4.5 GM/DL (6.4-8.2)
[2022-01-04 10:32] LABS: BILIRUBIN,TOTAL 0.3 MG/DL (0.1-1.0)
[2022-01-04 10:34] LABS: CREATININE SERUM 0.64 MG/DL (0.60-1.30)
[2022-01-04 10:37] LABS: MAGNESIUM 1.5 MG/DL (1.6-2.4)
--- NOTE | 2022-01-04 11:12 | Physical Therapy Daily Note ---
PT Daily Note-Current Subjective States that she is feeling okay. Transfers SCALE: Activities may be completed with or without assistive devices. 1-Fpmjqubhbn-dyisnqy completes the activity by him/herself with no assistance from a helper. 5-Set-up or Clean-up Assistance-helper sets up or cleans up; patient completes activity. Merom assists only prior to or following the activity. 4-Supervision or Touching Assistance-helper provides verbal cues and/or touching/steadying and/or contact guard assistance as patient completes activity. Assistance may be provided throughout the activity or intermittently. 3-Partial/Moderate Assistance-helper does LESS THAN HALF the effort. Merom lift s, holds or supports trunk or limbs, but provides less than half the effort. 2-Substantial/Maximal Assistance-helper does MORE THAN HALF the effort. Merom lifts or holds trunk or limbs and provides more than half the effort. 7-Kbezuexlw-bybjdv does ALL the effort. Patient does none of the effort to complete the activity. Or, the assistance of 2 or more helpers is required for the patient to complete the activity. If activity was not attempted, code reason: 7-Patient Refused. 9-Not Applicable-not attempted and the patient did not perform the activity before the current illness, exacerbation or injury. 10-Not Attempted due to Environmental Limitations-(lack of equipment, weather restraints, etc.). 88-Not Attempted due to Medical Conditions or Safety Concerns. Sit to Stand (QC): 3 Exercises Supine Ex: LE Protocol Supine Reps: 20 Assessment Current Status: Fair Progress Patient very fearful of falling but did agree to sit to stand transfer training. PT Halfway Goals Halfway Goals PT Pitch Worker Goals Time Frame: Feb 01, 2022 Roll Left & Right (QC): 4 Sit to Lying (QC): 4 Lying-Sitting on Side/Bed(QC): 4 Sit to Stand (QC): 4 Chair/Bjg-ew-Nbqbp Xfer(QC): 4 Toilet Transfer (QC): 4 Car Transfer (QC): 4 Does the Patient Walk: Yes Walk 10 feet (QC): 4 Walk 50ft with 2 Turns (QC): 4 Walk 150 ft (QC): 4 Walking 10ft on Uneven Surface: 4 1 Step (curb) (QC): 4 4 Steps (QC): 9 12 Steps (QC): 9 Picking up an Object (QC): 4 Does the Pt use WC or Scooter?: No Wheel 50 feet with 2 turns (QC: 9 Type: N/A Wheel 150 feet: 9 Type: N/A PT Plan Treatment/Plan Treatment Plan: Continue Plan of Care Treatment Plan: Bed Mobility, Education, Functional Activity Pat, Functional Strength, Gait, Safety, Therapeutic Exercise, Transfers Treatment Duration: Feb 01, 2022 Frequency: 11 times per week Estimated Hrs Per Day: .5 hour per day Patient and/or Family Agrees t: Yes Time/GCodes Time In: 1050 Time Out: 1105 Total Billed Treatment Time: 15 Total Billed Treatment 1, FA x 15 ALICIA MONTIEL PT Jan 04, 2022 11:12
[2022-01-04] MEDS: RT-ALBUTEROL/IPRATROPIUM 3 ML (DUONEB) VIAL INH SCH ×2 (11:19→20:41)
[2022-01-04] MEDS: ENOXAPARIN 40 MG/0.4 ML (LOVENOX) SYR SC SCH (11:30)
--- NOTE | 2022-01-04 11:44 | Progress Note ---
Subjective Date Seen by a Provider: Jan 04, 2022 Time Seen by a Provider: 10:40 Subjective/Events-last exam Patient seen with Dr. Prieto. Patient reports doing ok. Tolerating diet and having BMs. Denies any abdominal pain. Objective Exam Vital Signs Date Time Temp Pulse Resp B/P (MAP) Pulse Ox O2 Delivery O2 Flow Rate FiO2 01/04/22 08:34 36.7 104 20 178/74 (108) 90 Room Air 01/04/22 08:00 90 Room Air 01/04/22 03:28 36.5 103 18 113/51 (71) 92 Room Air 01/03/22 23:59 36.7 105 18 129/58 (81) 93 Room Air 01/03/22 20:45 Room Air 01/03/22 20:02 91 Room Air 01/03/22 19:35 37.2 109 22 163/78 (106) 90 Room Air 01/03/22 15:37 198/82 (120) 01/03/22 15:12 36.3 102 20 187/80 (115) 96 Nasal Cannula 2.00 01/03/22 12:39 36.7 94 18 174/72 (106) 97 Room Air I & O 01/04/22 06:59 Intake Total 740 ml Output Total 550 ml Balance 190 ml Capillary Refill : General Appearance: No Apparent Distress, WD/WN Neck: Normal Inspection, Supple Respiratory: No Accessory Muscle Use, No Respiratory Distress Gastrointestinal: normal bowel sounds, non tender, soft Neurologic/Psychiatric: Alert Skin: Normal Color, Warm/Dry, Other (Abdominal incisions C/D/I) Results Lab Laboratory Tests 01/03/22 15:17: Glucometer 184H 01/03/22 20:26: Glucometer 163H 01/04/22 05:11: Glucometer 159H 01/04/22 10:07: White Blood Count 5.1, Red Blood Count 3.31L, Hemoglobin 8.8L, Hematocrit 28L, Mean Corpuscular Volume 83, Mean Corpuscular Hemoglobin 27, Mean Corpuscular Hemoglobin Concent 32, Red Cell Distribution Width 13.9, Platelet Count 277, Mean Platelet Volume 8.7L, Immature Granulocyte % (Auto) 1, Neutrophils (%) (Auto) 74, Lymphocytes (%) (Auto) 15, Monocytes (%) (Auto) 7, Eosinophils (%) (Auto) 4, Basophils (%) (Auto) 0, Neutrophils # (Auto) 3.7, Lymphocytes # (Auto) 0.7L, Monocytes # (Auto) 0.4, Eosinophils # (Auto) 0.2, Basophils # (Auto) 0.0, Immature Granulocyte # (Auto) 0.0, Sodium Level 138, Potassium Level 3.4L, Chloride Level 101, Carbon Dioxide Level 28, Anion Gap 9, Blood Urea Nitrogen 8, Creatinine 0.64, Estimat Glomerular Filtration Rate 90, BUN/Creatinine Ratio 13, Glucose Level 191H, Calcium Level 8.0L, Corrected Calcium 9.1, Magnesium Level 1.5L, Total Bilirubin 0.3, Aspartate Amino Transf (AST/SGOT) 16, Alanine Aminotransferase (ALT/SGPT) 15, Alkaline Phosphatase 60, Total Protein 4.5L, Albumin 2.6L 01/04/22 11:08: Glucometer 188H Assessment/Plan Assessment/Plan Assess & Plan/Chief Complaint A 81 year old female who is S/p subtotal colectomy w/ileorectal anastamosis Colon cancer N/V Postop urinary retention Obesity Postop ileus Continue PT/OT Continue pain control. Continue antiemetics looking at placement options. Ok to increase to regular diet JERRY BAILEY FITNESS MANAGEMENT DIRECTOR Jan 04, 2022 11:44
[2022-01-04 12:10] VITALS: BP 168/70
[2022-01-04] MEDS ORDERED: KCL 10 MEQ TAB (MICRO K) PO NR (14:30)
[2022-01-04] MEDS: morphine INJ 4 MG/ML 1 ML (VIAL/SYRINGE) IV PRN (15:44)
[2022-01-04] MEDS: ONDANSETRON 4 MG/2 ML (SDV) Z0FRAN IVP PRN (15:53)
[2022-01-04] MEDS ORDERED: METOCLOPRAMIDE INJ 10 MG/2 ML (REGLAN) IVP PRN (17:15)
[2022-01-04] MEDS ORDERED: PROMETHAZINE INJ 25 MG/ML (PHENERGAN) AMP IVP PRN (17:15)
[2022-01-04] MEDS ORDERED: METOCLOPRAMIDE INJ 10 MG/2 ML (REGLAN) ONE (17:18)
[2022-01-04] MEDS ORDERED: PROMETHAZINE INJ 25 MG/ML (PHENERGAN) AMP ONE (17:19)
[2022-01-04 19:18] VITALS: BP 168/72
[2022-01-04] MEDS: KCL 10 MEQ TAB (MICRO K) PO SCH (20:24)
[2022-01-04] MEDS: NS IV 1000 ML 1,000 ML IV SCH (23:17)
[2022-01-05] MEDS: PANTOPRAZOLE 40 MG (PROTONIX) TAB PO SCH (05:49)
[2022-01-05] MEDS: BETHANECHOL 25 MG (URECHOLINE) TAB PO SCH ×4 (05:49→20:02)
[2022-01-05] MEDS: inSUlin ASPART (NovoLOG) 1 UNIT/0.01 ML (CHARGE PER UNIT) SC SCH ×4 (05:50→20:37)
[2022-01-05] MEDS: NS IV 1000 ML 1,000 ML IV SCH ×3 (05:51→17:48)
[2022-01-05] MEDS ORDERED: NS IV 1000 ML 1,000 ML IV SCH (07:15)
--- NOTE | 2022-01-05 07:50 | Progress Note ---
Subjective Date Seen by a Provider: Jan 05, 2022 Time Seen by a Provider: 11:00 Subjective/Events-last exam Large amount of liquid stool NS IVF will be given due to poor urinary output but appears she has more output in stool rather than urine DC catheter today No pain reported Family visiting NO falls Review of Systems General: Fatigue, Malaise Gastrointestinal: Diarrhea Objective Exam Last Set of Vital Signs Vital Signs Date Time Temp Pulse Resp B/P (MAP) Pulse Ox O2 Delivery O2 Flow Rate FiO2 01/04/22 20:41 92 Nasal Cannula 2.00 01/04/22 19:18 36.5 103 22 168/72 (104) 01/02/22 13:24 21 Capillary Refill : I&O Intake and Output 01/05/22 00:00 Intake Total 2110 ml Output Total 425 ml Balance 1685 ml Intake Oral 810 ml IV Total 1300 ml Output Urine Total 425 ml General: Alert, Oriented X3, Cooperative, No Acute Distress Lungs: Clear to Auscultation, Normal Air Movement Heart: Regular Rate, Normal S1, Normal S2, No Murmurs Neuro: Normal Gait, Normal Speech, Strength at 5/5 X4 Ext, Normal Tone Psych/Mental Status: Mental Status NL, Mood NL Results Lab Laboratory Tests 01/04/22 10:07: White Blood Count 5.1, Red Blood Count 3.31L, Hemoglobin 8.8L, Hematocrit 28L, Mean Corpuscular Volume 83, Mean Corpuscular Hemoglobin 27, Mean Corpuscular Hemoglobin Concent 32, Red Cell Distribution Width 13.9, Platelet Count 277, Mean Platelet Volume 8.7L, Immature Granulocyte % (Auto) 1, Neutrophils (%) (Auto) 74, Lymphocytes (%) (Auto) 15, Monocytes (%) (Auto) 7, Eosinophils (%) (Auto) 4, Basophils (%) (Auto) 0, Neutrophils # (Auto) 3.7, Lymphocytes # (Auto) 0.7L, Monocytes # (Auto) 0.4, Eosinophils # (Auto) 0.2, Basophils # (Auto) 0.0, Immature Granulocyte # (Auto) 0.0, Sodium Level 138, Potassium Level 3.4L, Chloride Level 101, Carbon Dioxide Level 28, Anion Gap 9, Blood Urea Nitrogen 8, Creatinine 0.64, Estimat Glomerular Filtration Rate 90, BUN/Creatinine Ratio 13, Glucose Level 191H, Calcium Level 8.0L, Corrected Calcium 9.1, Magnesium Level 1.5L, Total Bilirubin 0.3, Aspartate Amino Transf (AST/SGOT) 16, Alanine Aminotransferase (ALT/SGPT) 15, Alkaline Phosphatase 60, Total Protein 4.5L, Albumin 2.6L 01/04/22 11:08: Glucometer 188H 01/04/22 16:32: Glucometer 165H 01/04/22 20:32: Glucometer 163H 01/05/22 05:39: Glucometer 160H Assessment/Plan Assessment/Plan Assess & Plan/Chief Complaint Assessment and Plan S/p subtotal colectomy w/ileorectal anastamosis POD #11 Small bowel obstruction- Found today on Xray (01-01-2022)- Resolved NGT now DC Hypokalemia Latest at 3.5- continue to monitor and replace Monitor labs Monitor hydration-HLIVF yesterday but bowel output increased so maintained IVF Consult surgery Colon cancer-will see Oncology after recovery from colon resection complete T2DM Receiving Novolog (sliding scale) HTN Restarted home meds continue to monitor- Added meds hydralazine, furosemide, clonidine and amlodipine Dementia Postop urinary retention requiring Benítez catheter-now DC today Maintain swing bed JAMES BOWDEN DO Jan 05, 2022 07:50
[2022-01-05 08:00] VITALS: BP 178/80
[2022-01-05 08:36] LABS: BASOPHILS % (AUTO) 0 % (0-10); EOSINOPHILS # (AUTO) 0.2 10^3/uL (0.0-0.3); EOSINOPHILS % (AUTO) 2 % (0-10); HEMATOCRIT 28 % (35-52); HEMOGLOBIN 8.7 g/dL (11.5-16.0); LYMPHOCYTES % (AUTO) 14 % (12-44); MEAN CORPUSCULAR HEMOGLOBIN 26 pg (25-34); MEAN CORPUSCULAR HGB CONC 31 g/dL (32-36); MEAN CORPUSCULAR VOLUME 84 fL (80-99); MEAN PLATELET VOLUME 8.7 fL (9.0-12.2); MONOCYTES # (AUTO) 0.4 10^3/uL (0.0-1.0); MONOCYTES % (AUTO) 6 % (0-12); NEUTROPHILS # (AUTO) 5.5 10^3/uL (1.8-7.8); NEUTROPHILS % (AUTO) 78 % (42-75); PLATELET COUNT 281 10^3/uL (130-400); WHITE BLOOD COUNT 7.1 10^3/uL (4.3-11.0)
[2022-01-05 08:47] LABS: ALBUMIN 2.6 GM/DL (3.2-4.5); POTASSIUM 3.5 MMOL/L (3.6-5.0)
[2022-01-05] MEDS: KCL 10 MEQ TAB (MICRO K) PO SCH (08:47)
[2022-01-05 08:48] LABS: CALCIUM 7.9 MG/DL (8.5-10.1)
[2022-01-05 08:49] LABS: TOTAL PROTEIN 4.5 GM/DL (6.4-8.2)
[2022-01-05 08:51] LABS: BILIRUBIN,TOTAL 0.3 MG/DL (0.1-1.0)
[2022-01-05 08:53] LABS: CREATININE SERUM 0.61 MG/DL (0.60-1.30)
[2022-01-05] MEDS: RT-ALBUTEROL/IPRATROPIUM 3 ML (DUONEB) VIAL INH SCH ×2 (10:34→18:38)
[2022-01-05] MEDS: ENOXAPARIN 40 MG/0.4 ML (LOVENOX) SYR SC SCH (11:25)
[2022-01-05] MEDS ORDERED: CHOLESTYRAMINE 4 GM (QUESTRAN LITE, PREVALITE) PKT PO SCH (13:00)
[2022-01-05] MEDS: CHOLESTYRAMINE 4 GM (QUESTRAN LITE, PREVALITE) PKT PO SCH ×2 (14:02→20:02)
[2022-01-05 19:47] VITALS: BP 157/72
[2022-01-05] MEDS ORDERED: KCL 10 MEQ TAB (MICRO K) PO SCH (21:00)
[2022-01-06] MEDS: inSUlin ASPART (NovoLOG) 1 UNIT/0.01 ML (CHARGE PER UNIT) SC SCH ×4 (06:12→21:08)
[2022-01-06] MEDS: BETHANECHOL 25 MG (URECHOLINE) TAB PO SCH ×4 (06:15→20:49)
[2022-01-06] MEDS: PANTOPRAZOLE 40 MG (PROTONIX) TAB PO SCH (06:15)
[2022-01-06 06:32] LABS: BASOPHILS % (AUTO) 1 % (0-10); EOSINOPHILS # (AUTO) 0.2 10^3/uL (0.0-0.3); EOSINOPHILS % (AUTO) 3 % (0-10); HEMATOCRIT 28 % (35-52); HEMOGLOBIN 8.7 g/dL (11.5-16.0); LYMPHOCYTES # (AUTO) 1.1 10^3/uL (1.0-4.0); LYMPHOCYTES % (AUTO) 17 % (12-44); MEAN CORPUSCULAR HEMOGLOBIN 26 pg (25-34); MEAN CORPUSCULAR HGB CONC 31 g/dL (32-36); MEAN CORPUSCULAR VOLUME 83 fL (80-99); MEAN PLATELET VOLUME 8.9 fL (9.0-12.2); MONOCYTES # (AUTO) 0.4 10^3/uL (0.0-1.0); MONOCYTES % (AUTO) 5 % (0-12); NEUTROPHILS # (AUTO) 4.9 10^3/uL (1.8-7.8); NEUTROPHILS % (AUTO) 74 % (42-75); PLATELET COUNT 285 10^3/uL (130-400); WHITE BLOOD COUNT 6.6 10^3/uL (4.3-11.0)
[2022-01-06] MEDS: RT-ALBUTEROL/IPRATROPIUM 3 ML (DUONEB) VIAL INH SCH (06:49)
[2022-01-06 06:51] VITALS: BP 157/72
[2022-01-06 06:51] LABS: ALBUMIN 2.5 GM/DL (3.2-4.5); POTASSIUM 3.4 MMOL/L (3.6-5.0)
[2022-01-06 06:52] LABS: CALCIUM 7.5 MG/DL (8.5-10.1)
[2022-01-06 06:53] LABS: TOTAL PROTEIN 4.4 GM/DL (6.4-8.2)
[2022-01-06 06:55] LABS: BILIRUBIN,TOTAL 0.2 MG/DL (0.1-1.0)
[2022-01-06 06:57] LABS: CREATININE SERUM 0.58 MG/DL (0.60-1.30)
--- NOTE | 2022-01-06 06:59 | Progress Note - Surgery ---
DARREN SILVA 01/06/22 0659: Subjective Date Seen by a Provider: Jan 06, 2022 Time Seen by a Provider: 06:54 Subjective/Events-last exam Patient is awake and alert in her bed this morning, no family at bedside. Per RN, patient had two semisolid bowel movements last night. Patient reports that her pain and nausea are well controlled. Patient has no new complaints. Review of Systems General: No Chills, No Night Sweats HEENT: No Head Aches, No Visual Changes Pulmonary: No Dyspnea, No Cough Cardiovascular: No: Chest Pain, Palpitations Gastrointestinal: No: Vomiting, Abdominal Pain Genitourinary: No Dysuria, No Frequency Musculoskeletal: No: neck pain, shoulder pain Neurological: No: Numbness, Incoordination Objective Exam Vital Signs Date Time Temp Pulse Resp B/P (MAP) Pulse Ox O2 Delivery O2 Flow Rate FiO2 01/06/22 06:51 37.2 103 94 01/06/22 06:50 94 Room Air 01/05/22 20:05 Nasal Cannula 01/05/22 19:47 37.2 103 20 157/72 (100) 90 Room Air 01/05/22 18:40 Room Air 01/05/22 10:35 92 Nasal Cannula 2.00 01/05/22 08:00 Nasal Cannula 2.00 01/05/22 08:00 36.4 100 22 178/80 (112) 95 Room Air I & O 01/06/22 06:59 Intake Total 2320 ml Output Total 450 ml Balance 1870 ml Capillary Refill : General Appearance: No Apparent Distress, WD/WN HEENT: PERRL/EOMI, Normal ENT Inspection Neck: Normal Inspection, Supple Respiratory: No Accessory Muscle Use, No Respiratory Distress Cardiovascular: No JVD, Tachycardia Gastrointestinal: normal bowel sounds, non tender, soft Extremity: Normal Inspection, Non Tender Neurologic/Psychiatric: Alert, Disoriented Skin: Normal Color, Warm/Dry, Other (Abdominal incisions C/D/I) Lymphatic: No Adenopathy Results Lab Laboratory Tests 01/05/22 08:32: White Blood Count 7.1, Red Blood Count 3.32L, Hemoglobin 8.7L, Hematocrit 28L, Mean Corpuscular Volume 84, Mean Corpuscular Hemoglobin 26, Mean Corpuscular Hemoglobin Concent 31L, Red Cell Distribution Width 13.9, Platelet Count 281, Mean Platelet Volume 8.7L, Immature Granulocyte % (Auto) 0, Neutrophils (%) (Auto) 78H, Lymphocytes (%) (Auto) 14, Monocytes (%) (Auto) 6, Eosinophils (%) (Auto) 2, Basophils (%) (Auto) 0, Neutrophils # (Auto) 5.5, Lymphocytes # (Auto) 1.0, Monocytes # (Auto) 0.4, Eosinophils # (Auto) 0.2, Basophils # (Auto) 0.0, Immature Granulocyte # (Auto) 0.0, Sodium Level 140, Potassium Level 3.5L, Chloride Level 104, Carbon Dioxide Level 27, Anion Gap 9, Blood Urea Nitrogen 9, Creatinine 0.61, Estimat Glomerular Filtration Rate 91, BUN/Creatinine Ratio 15, Glucose Level 168H, Calcium Level 7.9L, Corrected Calcium 9.0, Total Bilirubin 0.3, Aspartate Amino Transf (AST/SGOT) 14, Alanine Aminotransferase (ALT/SGPT) 14, Alkaline Phosphatase 58, Total Protein 4.5L, Albumin 2.6L 01/05/22 12:05: Glucometer 172H 01/05/22 15:51: Glucometer 167H 01/05/22 20:26: Glucometer 171H 01/06/22 05:50: Glucometer 150H 01/06/22 06:19: White Blood Count 6.6, Red Blood Count 3.34L, Hemoglobin 8.7L, Hematocrit 28L, Mean Corpuscular Volume 83, Mean Corpuscular Hemoglobin 26, Mean Corpuscular Hemoglobin Concent 31L, Red Cell Distribution Width 14.0, Platelet Count 285, Mean Platelet Volume 8.9L, Immature Granulocyte % (Auto) 1, Neutrophils (%) (Auto) 74, Lymphocytes (%) (Auto) 17, Monocytes (%) (Auto) 5, Eosinophils (%) (Auto) 3, Basophils (%) (Auto) 1, Neutrophils # (Auto) 4.9, Lymphocytes # (Auto) 1.1, Monocytes # (Auto) 0.4, Eosinophils # (Auto) 0.2, Basophils # (Auto) 0.0, Immature Granulocyte # (Auto) 0.0, Sodium Level 140, Potassium Level 3.4L, Chloride Level 108H, Glucose Level 191H, Calcium Level 7.5L, Corrected Calcium 8.7, Total Protein 4.4L, Albumin 2.5L Assessment/Plan Assessment/Plan Assessment/Plan S/p subtotal colectomy w/ileorectal anastamosis Colon cancer N/V Postop urinary retention Obesity Postop ileus Continue PT/OT, encouraged patient to continue ambulating and using incentive spirometer. Continue pain control. Continue antiemetics Pt is tolerating regular diet well. KEERTHI PARKS DO 01/06/22 0948: Subjective Subjective/Events-last exam Patient sitting in chair. Lots of liquid stools. Better today. No significant abdominal pain. Tolerating diet. Denies n/v fever sweats chills shortness of breath or chest pain. Objective Exam General Appearance: No Apparent Distress, WD/WN HEENT: PERRL/EOMI, Normal ENT Inspection Neck: Normal Inspection, Supple Respiratory: Chest Non Tender, No Accessory Muscle Use, No Respiratory Distress Gastrointestinal: non tender, soft, other (incision c/d/i) Extremity: Normal Inspection, Non Tender Neurologic/Psychiatric: Alert, Disoriented Skin: Normal Color, Warm/Dry Lymphatic: No Adenopathy Assessment/Plan Assessment/Plan Assessment/Plan S/p subtotal colectomy w/ileorectal anastamosis Colon cancer N/V Postop urinary retention Obesity Postop ileus Hypokalemia Continue PT/OT, encouraged patient to continue ambulating and using incentive spirometer. Continue pain control. Continue antiemetics Pt is tolerating regular diet well. Working on placement Get peripheral (midline) access and dc central line Replace K Supervisory-Addendum Brief Verification & Attestation Participated in pt care: history, MDM, physical Personally performed: exam, history, MDM, supervision of care Care discussed with: Medical Student Procedures: n/a Results interpretation: Verified all documentation Verification and Attestation of Medical Student E/M Service A medical student performed and documented this service in my presence. I reviewed and verified all information documented by the medical student and made modifications to such information, when appropriate. I personally performed the physical exam and medical decision making. Keerthi Parks, Jan 06, 2022,09:48 DARREN SILVA Jan 06, 2022 06:59 KEERTHI PARKS DO Jan 06, 2022 09:48
[2022-01-06 07:00] LABS: MAGNESIUM 1.4 MG/DL (1.6-2.4)
[2022-01-06] MEDS: POTASSIUM BICARB 20 MEQ (EFFER-K) TABLET PO SCH ×2 (08:28→18:18)
[2022-01-06] MEDS: NS IV 1000 ML 1,000 ML IV SCH (08:32)
[2022-01-06 08:58] VITALS: BP 159/84
--- NOTE | 2022-01-06 10:03 | Physical Therapy Daily Note ---
PT Daily Note-Current Subjective Patient continues to have abdominal pain with increase c/o with activity. PT encouraged patient to perform upright activity and ambulate. Patient agrees. Mental Status Patient Orientation: Person, Time, Situation Attachments: IV Transfers SCALE: Activities may be completed with or without assistive devices. 3-Zvdfucktdd-sgjniue completes the activity by him/herself with no assistance from a helper. 5-Set-up or Clean-up Assistance-helper sets up or cleans up; patient completes activity. Rebecca assists only prior to or following the activity. 4-Supervision or Touching Assistance-helper provides verbal cues and/or touching/steadying and/or contact guard assistance as patient completes activity. Assistance may be provided throughout the activity or intermittently. 3-Partial/Moderate Assistance-helper does LESS THAN HALF the effort. Rebecca lifts, holds or supports trunk or limbs, but provides less than half the effort. 2-Substantial/Maximal Assistance-helper does MORE THAN HALF the effort. Rebecca lifts or holds trunk or limbs and provides more than half the effort. 5-Vyfrxjpfe-myooyy does ALL the effort. Patient does none of the effort to complete the activity. Or, the assistance of 2 or more helpers is required for the patient to complete the activity. If activity was not attempted, code reason: 7-Patient Refused. 9-Not Applicable-not attempted and the patient did not perform the activity before the current illness, exacerbation or injury. 10-Not Attempted due to Environmental Limitations-(lack of equipment, weather restraints, etc.). 88-Not Attempted due to Medical Conditions or Safety Concerns. Sit to Stand (QC): 3 Gait Training Distance: 15' x 2 Walk 10 feet (QC): 3 (mod assist) Walk 50 ft with 2 Turns(QC): 88 Walk 150 ft (QC): 88 Gait Assistive Device: FWW flexed bilateral knee posture with shuffle gait pattern with VC's to correct, however, patient unable to perform. Exercises Seated Therapy Exercises: Ankle pumps, Long arc quads, Hip flexion Seated Reps: 15 (x 2 sets) Assessment Patient remains up in recliner with needs met. This PT educated patient and spouse on importance of patient increasing her activity and performance to safely return to home. Currently patient is not at that level. Family is aware. PT Devops Consultant Goals Chcf Goals PT Devops Consultant Goals Time Frame: Feb 01, 2022 Roll Left & Right (QC): 4 Sit to Lying (QC): 4 Lying-Sitting on Side/Bed(QC): 4 Sit to Stand (QC): 4 Chair/Etr-qk-Pzvjx Xfer(QC): 4 Toilet Transfer (QC): 4 Car Transfer (QC): 4 Does the Patient Walk: Yes Walk 10 feet (QC): 4 Walk 50ft with 2 Turns (QC): 4 Walk 150 ft (QC): 4 Walking 10ft on Uneven Surface: 4 1 Step (curb) (QC): 4 4 Steps (QC): 9 12 Steps (QC): 9 Picking up an Object (QC): 4 Does the Pt use WC or Scooter?: No Wheel 50 feet with 2 turns (QC: 9 Type: N/A Wheel 150 feet: 9 Type: N/A PT Plan Treatment/Plan Treatment Plan: Continue Plan of Care Treatment Plan: Bed Mobility, Education, Functional Activity Pat, Functional Strength, Gait, Safety, Therapeutic Exercise, Transfers Treatment Duration: Feb 01, 2022 Frequency: 11 times per week Estimated Hrs Per Day: .5 hour per day Patient and/or Family Agrees t: Yes Time/GCodes Time In: 851 Time Out: 910 Total Billed Treatment Time: 19 Total Billed Treatment 1 visit FA 19 min BAILEY CHÁVEZ PT Jan 06, 2022 10:03
[2022-01-06] MEDS ORDERED: ENOXAPARIN 40 MG/0.4 ML (LOVENOX) SYR SC SCH (10:15)
--- NOTE | 2022-01-06 10:46 | Progress Note ---
ASHANTI WATTS 01/06/22 1046: Subjective Date Seen by a Provider: Jan 06, 2022 Time Seen by a Provider: 10:38 Subjective/Events-last exam Patient is feeling well today She only has pain when getting out of bed, otherwise pain is well controlled She is eating well She is urinating well Labs reviewed Willing to do PT today Objective Exam Last Set of Vital Signs Vital Signs Date Time Temp Pulse Resp B/P (MAP) Pulse Ox O2 Delivery O2 Flow Rate FiO2 01/06/22 08:58 36.7 102 19 159/84 (109) 93 Room Air 01/05/22 10:35 2.00 01/02/22 13:24 21 Capillary Refill : I&O Intake and Output 01/06/22 00:00 Intake Total 2620 ml Output Total 335 ml Balance 2285 ml Intake Oral 1620 ml IV Total 1000 ml Output Urine Total 335 ml # Voids 2 # Bowel Movements 23 General: Alert, Cooperative, No Acute Distress HEENT: PERRLA Neck: Supple, No Thyromegaly Lungs: Clear to Auscultation Heart: Regular Rate, No Murmurs Abdomen: Soft, No Tenderness (Only tender when getting out of bed.) Extremities: No Clubbing, No Cyanosis Skin: No Rashes, No Breakdown Neuro: Normal Speech, Normal Tone Results Lab Laboratory Tests 01/05/22 12:05: Glucometer 172H 01/05/22 15:51: Glucometer 167H 01/05/22 20:26: Glucometer 171H 01/06/22 05:50: Glucometer 150H 01/06/22 06:19: White Blood Count 6.6, Red Blood Count 3.34L, Hemoglobin 8.7L, Hematocrit 28L, Mean Corpuscular Volume 83, Mean Corpuscular Hemoglobin 26, Mean Corpuscular Hemoglobin Concent 31L, Red Cell Distribution Width 14.0, Platelet Count 285, Mean Platelet Volume 8.9L, Immature Granulocyte % (Auto) 1, Neutrophils (%) (Auto) 74, Lymphocytes (%) (Auto) 17, Monocytes (%) (Auto) 5, Eosinophils (%) (Auto) 3, Basophils (%) (Auto) 1, Neutrophils # (Auto) 4.9, Lymphocytes # (Auto) 1.1, Monocytes # (Auto) 0.4, Eosinophils # (Auto) 0.2, Basophils # (Auto) 0.0, Immature Granulocyte # (Auto) 0.0, Sodium Level 140, Potassium Level 3.4L, Chloride Level 108H, Carbon Dioxide Level 24, Anion Gap 8, Blood Urea Nitrogen 7, Creatinine 0.58L, Estimat Glomerular Filtration Rate 92, BUN/Creatinine Ratio 12, Glucose Level 191H, Calcium Level 7.5L, Corrected Calcium 8.7, Magnesium Level 1.4L, Total Bilirubin 0.2, Aspartate Amino Transf (AST/SGOT) 13, Alanine Aminotransferase (ALT/SGPT) 13, Alkaline Phosphatase 56, Total Protein 4.4L, Albumin 2.5L Assessment/Plan Assessment/Plan Assess & Plan/Chief Complaint Assessment and Plan S/p subtotal colectomy w/ileorectal anastamosis POD #12 Small bowel obstruction- Found on Xray (01-01-2022)- Resolved Remove all IV's so central line may be removed. NG tube removed Hypokalemia Latest at 3.4- continue to monitor and replace Monitor labs Give IV magnesium and monitor value Monitor hydration Consult surgery Colon cancer Post op care in coordination with her surgeon, Dr. Parks Continue pain management - well controlled at this time T2DM Receiving Novolog (sliding scale) HTN Restarted home meds continue to monitor- Added meds hydralazine, furosemide, clonidine and amlodipine Dementia Maintain swing bed Continue PT MAYRA BOWDEN DO 01/07/22 0550: Subjective Subjective/Events-last exam Improved Slow recovery IRF tomorrow DC IV meds DC CL Assessment/Plan Assessment/Plan Assess & Plan/Chief Complaint IRF tomorrow Supervisory-Addendum Brief Verification & Attestation Participated in pt care: history, MDM, physical Personally performed: exam, history, MDM, supervision of care Care discussed with: Medical Student Procedures: n/a Results interpretation: Verified all documentation Verification and Attestation of Medical Student E/M Service A medical student performed and documented this service in my presence. I reviewed and verified all information documented by the medical student and made modifications to such information, when appropriate. I personally performed the physical exam and medical decision making. Mayra Bowden Jan 07, 2022,05:49 ASHANTI WATTS Jan 06, 2022 10:46 MAYRA BOWDEN DO Jan 07, 2022 05:50
--- NOTE | 2022-01-06 10:56 | Occupational Ther Daily Note ---
OT Current Status-Daily Note Subjective Pt pleasantly confused, denies pain. Appearance Pt left sitting in recliner, all needs within reach. Mental Status/Objective Patient Orientation: Person, Confused ADL-Treatment Therapy Code Descriptions/Definitions Functional [place] Measure: 0=Not Assessed/NA 4=Minimal Assistance 1=Total Assistance 5=Supervision or Setup 2=Maximal Assistance 6=Modified [place] 3=Moderate Assistance 7=Complete IndependenceSCALE: Activities may be completed with or without assistive devices. 5-Hraitqfgxv-jiuxjbm completes the activity by him/herself with no assistance from a helper. 5-Set-up or Clean-up Assistance-helper sets up or cleans up; patient completes activity. [place] assists only prior to or following the activity. 4-Supervision or Touching Assistance-helper provides verbal cues and/or touching/steadying and/or contact guard assistance as patient completes activity. Assistance may be provided throughout the activity or intermittently. 3-Partial/Moderate Assistance-helper does LESS THAN HALF the effort. [place] lifts, holds or supports trunk or limbs, but provides less than half the effort. 2-Substantial/Maximal Assistance-helper does MORE THAN HALF the effort. [place] lifts or holds trunk or limbs and provides more than half the effort. 6-Cjamecxup-glcxzs does ALL the effort. Patient does none of the effort to complete the activity. Or, the assistance of 2 or more helpers is required for the patient to complete the activity. If activity was not attempted, code reason: 7-Patient Refused. 9-Not Applicable-not attempted and the patient did not perform the activity before the current illness, exacerbation or injury. 10-Not Attempted due to Environmental Limitations-(lack of equipment, weather restraints, etc.). 88-Not Attempted due to Medical Conditions or Safety Concerns. Toileting Hygiene (QC): 2 (per PLATE SENSITIZER report) Toilet Transfer (QC): 3 (per PLATE SENSITIZER report) Pt returning to chair with PLATE SENSITIZER present after using toilet. Per report, pt required assistance with facundo care and clothing management. Pt reports fatigue after minimal activity but still agreeable to UE exercises. Focus on improving strength and endurance needed for functional tasks. Pt able to complete all exercises to full range. Min verbal and visual cues for correct technique and for slow/controlled movement. Short rest breaks needed after each exercise. 1x10 all planes. Education OT Patient Education: Correct positioning, Purpose of tx/functional activities, Safety issues Teaching Recipient: Patient Teaching Methods: Demonstration, Discussion Response to Teaching: Verbalize Understanding, Return Demonstration, Reinforcement Needed OT Nursing Home Goals Nursing Home Goals Time Frame: Jan 24, 2022 Eating (QC): 6 Oral Hygiene (QC): 5 Toileting Hygiene (QC): 4 Shower/Bathe Self (QC): 4 Upper Body Dressing (QC): 5 Lower Body Dressing (QC): 4 On/Off Footwear (QC): 4 Additional Goals: 1-Demonstrate ADL Tasks, 2-Verbalize Understanding, 3- ImproveStrength/Pat 1=Demonstrate adherence to instructed precautions during ADL tasks. 2=Patient will verbalize/demonstrate understanding of assistive de vices/modifications for ADL. 3=Patient will improve strength/tolerance for activity to enable patient to perform ADL's. OT Education/Plan Problem List/Assessment Assessment: Decreased Activ Tolerance, Decreased Safety Aware, Decreased UE Strength, Impaired Cognition, Impaired Funct Balance, Impaired Self-Care Skills Discharge Recommendations Plan/Recommendations: Continue POC Therapy Discharge Recommendati: Post Acute OT Treatment Plan/Plan of Care Treatment,Training & Education: Yes Patient would benefit from OT for education, treatment and training to promote independence in ADL's, mobility, safety and/or upper extremity function for ADL's. Plan of Care: ADL Retraining, Functional Mobility, UE Funct Exercise/Act Treatment Duration: Jan 24, 2022 Frequency: 5 times per week Estimated Hrs Per Day: .25 hour per day Rehab Potential: Guarded Time/GCodes Start Time: 10:37 Stop Time: 10:47 Total Time Billed (hr/min): 10 Billed Treatment Time 1 visit EX Dayna Crandall OT Jan 06, 2022 10:55
[2022-01-06] MEDS: HYDROcodone/APAP 5 MG/325 MG (LORTAB) TAB PO PRN ×2 (10:59→15:02)
[2022-01-06] MEDS: ENOXAPARIN 40 MG/0.4 ML (LOVENOX) SYR SC SCH (11:43)
[2022-01-06] MEDS: CHOLESTYRAMINE 4 GM (QUESTRAN LITE, PREVALITE) PKT PO SCH ×2 (13:21→20:49)
--- NOTE | 2022-01-06 14:03 | Physical Therapy Daily Note ---
PT Daily Note-Current Subjective Patient has increase c/o abdominal pain. Very emotional this p.m. Pain Numeric Pain Scale: 10-Worst Possible Pain Location: Medial, Lower Location Body Site: Abdomen Pain Description: Pressure, Sharp Transfers SCALE: Activities may be completed with or without assistive devices. 8-Drkwhqefyd-pwwgycu completes the activity by him/herself with no assistance from a helper. 5-Set-up or Clean-up Assistance-helper sets up or cleans up; patient completes activity. [place] assists only prior to or following the activity. 4-Supervision or Touching Assistance-helper provides verbal cues and/or touching/steadying and/or contact guard assistance as patient completes acti vity. Assistance may be provided throughout the activity or intermittently. 3-Partial/Moderate Assistance-helper does LESS THAN HALF the effort. [place] lifts, holds or supports trunk or limbs, but provides less than half the effort. 2-Substantial/Maximal Assistance-helper does MORE THAN HALF the effort. [place] lifts or holds trunk or limbs and provides more than half the effort. 7-Xszppujof-dplwli does ALL the effort. Patient does none of the effort to complete the activity. Or, the assistance of 2 or more helpers is required for the patient to complete the activity. If activity was not attempted, code reason: 7-Patient Refused. 9-Not Applicable-not attempted and the patient did not perform the activity before the current illness, exacerbation or injury. 10-Not Attempted due to Environmental Limitations-(lack of equipment, weather restraints, etc.). 88-Not Attempted due to Medical Conditions or Safety Concerns. Sit to Lying (QC): 1 Sit to Stand (QC): 2 Chair/Zgx-zx-Fpdhm Xfer(QC): 2 Toilet Transfer (QC): 2 Gait Training Distance: 15' x 2 Walk 10 feet (QC): 1 (assist of 2 secondary patient inability to stand erect and ambulate fulling into restroom ) Gait Assistive Device: FWW NBOS/shuffle gait with no foot clearance Assessment Current Status: Poor Progress Patient tolerates minimal activity and has increase in c/o abdominal pain. Patient required assist of 2 (dependent assist) with all mobility due to inability to ambulate into restroom. Patient incontinent BM during session. Patient is displaying poor progress with gross motor skills. From a PT sta ndpoint, patient will require extended care to address functional needs. PT Virtual Customer Assistant Goals Virtual Customer Assistant Goals PT Virtual Customer Assistant Goals Time Frame: Feb 01, 2022 Roll Left & Right (QC): 4 Sit to Lying (QC): 4 Lying-Sitting on Side/Bed(QC): 4 Sit to Stand (QC): 4 Chair/Bur-mq-Sbgmc Xfer(QC): 4 Toilet Transfer (QC): 4 Car Transfer (QC): 4 Does the Patient Walk: Yes Walk 10 feet (QC): 4 Walk 50ft with 2 Turns (QC): 4 Walk 150 ft (QC): 4 Walking 10ft on Uneven Surface: 4 1 Step (curb) (QC): 4 4 Steps (QC): 9 12 Steps (QC): 9 Picking up an Object (QC): 4 Does the Pt use WC or Scooter?: No Wheel 50 feet with 2 turns (QC: 9 Type: N/A Wheel 150 feet: 9 Type: N/A PT Plan Treatment/Plan Treatment Plan: Continue Plan of Care Treatment Plan: Bed Mobility, Education, Functional Activity Pat, Functional Strength, Gait, Safety, Therapeutic Exercise, Transfers Treatment Duration: Feb 01, 2022 Frequency: 11 times per week Estimated Hrs Per Day: .5 hour per day Patient and/or Family Agrees t: Yes Time/GCodes Time In: 1320 Time Out: 1335 Total Billed Treatment Time: 15 Total Billed Treatment 1 visit FA 15 min BAILEY CHÁVEZ PT Jan 06, 2022 14:02
[2022-01-06 19:35] VITALS: BP 151/71
[2022-01-07 05:47] LABS: BASOPHILS % (AUTO) 0 % (0-10); EOSINOPHILS # (AUTO) 0.3 10^3/uL (0.0-0.3); EOSINOPHILS % (AUTO) 5 % (0-10); HEMATOCRIT 27 % (35-52); HEMOGLOBIN 8.3 g/dL (11.5-16.0); LYMPHOCYTES # (AUTO) 1.3 10^3/uL (1.0-4.0); LYMPHOCYTES % (AUTO) 22 % (12-44); MEAN CORPUSCULAR HEMOGLOBIN 26 pg (25-34); MEAN CORPUSCULAR HGB CONC 31 g/dL (32-36); MEAN CORPUSCULAR VOLUME 84 fL (80-99); MONOCYTES # (AUTO) 0.3 10^3/uL (0.0-1.0); MONOCYTES % (AUTO) 6 % (0-12); NEUTROPHILS # (AUTO) 3.7 10^3/uL (1.8-7.8); NEUTROPHILS % (AUTO) 66 % (42-75); PLATELET COUNT 286 10^3/uL (130-400); WHITE BLOOD COUNT 5.6 10^3/uL (4.3-11.0)
[2022-01-07 06:00] LABS: ALBUMIN 2.5 GM/DL (3.2-4.5)
[2022-01-07 06:01] LABS: POTASSIUM 3.3 MMOL/L (3.6-5.0)
[2022-01-07 06:02] LABS: CALCIUM 7.6 MG/DL (8.5-10.1)
[2022-01-07 06:03] LABS: TOTAL PROTEIN 4.4 GM/DL (6.4-8.2)
[2022-01-07 06:05] LABS: BILIRUBIN,TOTAL 0.2 MG/DL (0.1-1.0)
[2022-01-07 06:07] LABS: CREATININE SERUM 0.58 MG/DL (0.60-1.30)
[2022-01-07 06:09] LABS: MAGNESIUM 1.3 MG/DL (1.6-2.4)
--- NOTE | 2022-01-07 06:15 | Progress Note - Surgery ---
DARREN SILVA 01/07/22 0615: Subjective Date Seen by a Provider: Jan 07, 2022 Time Seen by a Provider: 06:10 Subjective/Events-last exam Patient is awake and alert this morning, no family at bedside. Patient reports that her pain and nausea are well controlled and that she has been tolerating her diet well. Patient states she has been ambulating and continuing to work with PT. Patient continues to have bowel movements. Patient has no new complaints. Review of Systems General: No Chills, No Night Sweats HEENT: No Head Aches, No Visual Changes Pulmonary: No Dyspnea, No Cough Cardiovascular: No: Chest Pain, Palpitations Gastrointestinal: No: Nausea, Vomiting, Abdominal Pain Genitourinary: No Dysuria, No Frequency Musculoskeletal: No: neck pain, shoulder pain Neurological: No: Numbness, Incoordination Objective Exam Vital Signs Date Time Temp Pulse Resp B/P (MAP) Pulse Ox O2 Delivery O2 Flow Rate FiO2 01/06/22 20:50 Room Air 01/06/22 19:35 36.7 97 18 151/71 (97) 94 Room Air 01/06/22 08:58 36.7 102 19 159/84 (109) 93 Room Air 01/06/22 08:00 Nasal Cannula 01/06/22 06:51 37.2 103 94 01/06/22 06:50 94 Room Air I & O 01/07/22 07:00 Intake Total 857 ml Balance 857 ml Capillary Refill : General Appearance: No Apparent Distress, WD/WN HEENT: PERRL/EOMI, Normal ENT Inspection Neck: Normal Inspection, Supple Respiratory: Chest Non Tender, No Accessory Muscle Use, No Respiratory Distress Cardiovascular: Regular Rate, Rhythm, No JVD Gastrointestinal: non tender, soft, other (incision c/d/i) Extremity: Normal Inspection, Non Tender Neurologic/Psychiatric: Alert, Disoriented Skin: Normal Color, Warm/Dry Lymphatic: No Adenopathy Results Lab Laboratory Tests 01/06/22 06:19: White Blood Count 6.6, Red Blood Count 3.34L, Hemoglobin 8.7L, Hematocrit 28L, Mean Corpuscular Volume 83, Mean Corpuscular Hemoglobin 26, Mean Corpuscular Hemoglobin Concent 31L, Red Cell Distribution Width 14.0, Platelet Count 285, Mean Platelet Volume 8.9L, Immature Granulocyte % (Auto) 1, Neutrophils (%) (Auto) 74, Lymphocytes (%) (Auto) 17, Monocytes (%) (Auto) 5, Eosinophils (%) (Auto) 3, Basophils (%) (Auto) 1, Neutrophils # (Auto) 4.9, Lymphocytes # (Auto) 1.1, Monocytes # (Auto) 0.4, Eosinophils # (Auto) 0.2, Basophils # (Auto) 0.0, Immature Granulocyte # (Auto) 0.0, Sodium Level 140, Potassium Level 3.4L, Chloride Level 108H, Carbon Dioxide Level 24, Anion Gap 8, Blood Urea Nitrogen 7, Creatinine 0.58L, Estimat Glomerular Filtration Rate 92, BUN/Creatinine Ratio 12, Glucose Level 191H, Calcium Level 7.5L, Corrected Calcium 8.7, Magnesium Level 1.4L, Total Bilirubin 0.2, Aspartate Amino Transf (AST/SGOT) 13, Alanine Aminotransferase (ALT/SGPT) 13, Alkaline Phosphatase 56, Total Protein 4.4L, Albumin 2.5L 01/06/22 11:35: Glucometer 191H 01/06/22 15:59: Glucometer 148H 01/06/22 20:19: Glucometer 186H 01/07/22 05:20: White Blood Count 5.6, Red Blood Count 3.17L, Hemoglobin 8.3L, Hematocrit 27L, Mean Corpuscular Volume 84, Mean Corpuscular Hemoglobin 26, Mean Corpuscular Hemoglobin Concent 31L, Red Cell Distribution Width 13.9, Platelet Count 286, Mean Platelet Volume 9.0, Immature Granulocyte % (Auto) 1, Neutrophils (%) (Auto) 66, Lymphocytes (%) (Auto) 22, Monocytes (%) (Auto) 6, Eosinophils (%) (Auto) 5, Basophils (%) (Auto) 0, Neutrophils # (Auto) 3.7, Lymphocytes # (Auto) 1.3, Monocytes # (Auto) 0.3, Eosinophils # (Auto) 0.3, Basophils # (Auto) 0.0, Immature Granulocyte # (Auto) 0.0, Sodium Level 144, Potassium Level 3.3L, Chloride Level 110H, Carbon Dioxide Level 23, Anion Gap 11, Blood Urea Nitrogen 8, Creatinine 0.58L, Estimat Glomerular Filtration Rate 92, BUN/Creatinine Ratio 14, Glucose Level 191H, Calcium Level 7.6L, Corrected Calcium 8.8, Magnesium Level 1.3L, Total Bilirubin 0.2, Aspartate Amino Transf (AST/SGOT) 11, Alanine Aminotransferase (ALT/SGPT) 12, Alkaline Phosphatase 54, Total Protein 4.4L, Albumin 2.5L Assessment/Plan Assessment/Plan Assessment/Plan S/p subtotal colectomy w/ileorectal anastamosis Colon cancer N/V Postop urinary retention Obesity Postop ileus Hypokalemia Continue PT/OT, encouraged patient to continue ambulating and using incentive spirometer. Continue pain control. Continue antiemetics Pt is tolerating regular diet well. Working on placement for inpatient rehab. Potassium down to 3.3 this morning, continue to monitor and replace. KEERTHI PARKS DO 01/07/222128: Subjective Subjective/Events-last exam No new complaints. Tolerating diet. Having bowel function. Pain controlled. Denies n/v fever sweats chills shortness of breath or chest pain. Objective Exam General Appearance: No Apparent Distress, Obese HEENT: PERRL/EOMI, Normal ENT Inspection Neck: Normal Inspection, Supple Respiratory: Chest Non Tender, No Accessory Muscle Use, No Respiratory Distress Cardiovascular: Regular Rate, Rhythm, No JVD Gastrointestinal: non tender, soft, other (incision c/d/i) Extremity: Normal Inspection, Non Tender Neurologic/Psychiatric: Alert, Disoriented Skin: Normal Color, Warm/Dry Lymphatic: No Adenopathy Assessment/Plan Assessment/Plan Assessment/Plan S/p subtotal colectomy w/ileorectal anastamosis Colon cancer N/V Postop urinary retention Obesity Postop ileus Hypokalemia Continue PT/OT, encouraged patient to continue ambulating and using incentive spirometer. Continue pain control. Continue antiemetics Pt is tolerating regular diet well. Working on placement for inpatient rehab. Potassium down to 3.3 this morning, continue to monitor and replace. Supervisory-Addendum Brief Verification & Attestation Participated in pt care: history, MDM, physical Personally performed: exam, history, MDM, supervision of care Care discussed with: Medical Student Procedures: n/a Results interpretation: Verified all documentation Verification and Attestation of Medical Student E/M Service A medical student performed and documented this service in my presence. I reviewed and verified all information documented by the medical student and made modifications to such information, when appropriate. I personally performed the physical exam and medical decision making. Keerthi Parks, Jan 07, 2022,21:29 DARREN SILVA Jan 07, 2022 06:15 KEERTHI PARKS DO Jan 07, 2022 21:29
[2022-01-07] MEDS: PANTOPRAZOLE 40 MG (PROTONIX) TAB PO SCH (06:26)
[2022-01-07] MEDS: BETHANECHOL 25 MG (URECHOLINE) TAB PO SCH (06:26)
[2022-01-07] MEDS: inSUlin ASPART (NovoLOG) 1 UNIT/0.01 ML (CHARGE PER UNIT) SC SCH (06:26)
--- NOTE | 2022-01-07 06:39 | Discharge Summary ---
Diagnosis/Chief Complaint Date of Admission Jan 02, 2022 at 12:45 Date of Discharge Discharge Date: Jan 07, 2022 Discharge Diagnosis S/p subtotal colectomy w/ileorectal anastamosis POD #13 Small bowel obstruction- Found on Xray (01-01-2022)- Resolved Remove all IV's so central line may be removed. NG tube removed Hypokalemia Latest at 3.4- continue to monitor and replace Monitor labs Give IV magnesium and monitor value Monitor hydration Consult surgery Colon cancer Post op care in coordination with her surgeon, Dr. Parks Continue pain management - well controlled at this time T2DM Receiving Novolog (sliding scale) HTN Restarted home meds continue to monitor- Added meds hydralazine, furosemide, clonidine and amlodipine Dementia Maintain swing bed Continue PT Discharge Summary Discharge Physical Examination Allergies: Coded Allergies: Penicillins (Unverified Allergy, Intermediate, Rash, 09/03/21) Sulfa (Sulfonamide Antibiotics) (Unverified Allergy, Intermediate, Rash, 09/03/21) Vitals & I&Os Vital Signs Date Time Temp Pulse Resp B/P (MAP) Pulse Ox O2 Delivery O2 Flow Rate FiO2 01/07/22 09:32 36.4 99 18 174/82 95 Room Air 2.00 01/02/22 13:24 21 General Appearance: Alert, Cooperative Respiratory: Clear to Auscultation Cardiovascular: Regular Rate Psych/Mental Status: Other (slowed) Hospital Course Was the Problem List Reviewed?: Yes Patient is a 81 year old female that has been in swing bed following a hospital stay for a subtotal colectomy w/ileorectal anastamosis. During her hospital stay she developed a small bowel obstruction and subsequently had a NG tube placed. The obstruction resolved a day after the NG tube was placed. During her stay in swing bed stay she has made gradual improvements in her strength, pain, and overall status. The only concern with her during her swing bed stay was her potassium levels which became low after NG tube placement. Potassium levels were monitored throughout and replaced. As of now patient states she is pain free. She is eating well and sleeping well. Patient has been having regular bowel movements that have some solid form to them. She has had her IV access and PICC line removed. She is gaining her strength back slowly and has no complaints at this time. ASHANTI WATTS Labs (last 24 hrs) Laboratory Tests 01/02/22 16:32: Glucometer 179H 01/02/22 20:14: Glucometer 200H 01/03/22 05:31: Glucometer 167H 01/03/22 06:55: White Blood Count 5.0, Red Blood Count 3.46L, Hemoglobin 9.2L, Hematocrit 29L, Mean Corpuscular Volume 83, Mean Corpuscular Hemoglobin 27, Mean Corpuscular Hemoglobin Concent 32, Red Cell Distribution Width 13.8, Platelet Count 280, Mean Platelet Volume 8.7L, Immature Granulocyte % (Auto) 1, Neutrophils (%) (Auto) 77H, Lymphocytes (%) (Auto) 12, Monocytes (%) (Auto) 7, Eosinophils (%) (Auto) 3, Basophils (%) (Auto) 1, Neutrophils # (Auto) 3.9, Lymphocytes # (Auto) 0.6L, Monocytes # (Auto) 0.4, Eosinophils # (Auto) 0.1, Basophils # (Auto) 0.0, Immature Granulocyte # (Auto) 0.0, Sodium Level 141, Potassium Level 3.2L, Chloride Level 99, Carbon Dioxide Level 29, Anion Gap 13, Blood Urea Nitrogen 8, Creatinine 0.63, Estimat Glomerular Filtration Rate 90, BUN/Creatinine Ratio 13, Glucose Level 189H, Calcium Level 8.1L, Corrected Calcium 9.2, Magnesium Level 1.3L, Total Bilirubin 0.3, Aspartate Amino Transf (AST/SGOT) 15, Alanine Aminotransferase (ALT/SGPT) 13, Alkaline Phosphatase 59, Total Protein 4.7L, Albumin 2.6L 01/03/22 11:40: Glucometer 180H 01/03/22 15:17: Glucometer 184H 01/03/22 20:26: Glucometer 163H 01/04/22 05:11: Glucometer 159H 01/04/22 10:07: White Blood Count 5.1, Red Blood Count 3.31L, Hemoglobin 8.8L, Hematocrit 28L, Mean Corpuscular Volume 83, Mean Corpuscular Hemoglobin 27, Mean Corpuscular Hemoglobin Concent 32, Red Cell Distribution Width 13.9, Platelet Count 277, Mean Platelet Volume 8.7L, Immature Granulocyte % (Auto) 1, Neutrophils (%) (Auto) 74, Lymphocytes (%) (Auto) 15, Monocytes (%) (Auto) 7, Eosinophils (%) (Auto) 4, Basophils (%) (Auto) 0, Neutrophils # (Auto) 3.7, Lymphocytes # (Auto) 0.7L, Monocytes # (Auto) 0.4, Eosinophils # (Auto) 0.2, Basophils # (Auto) 0.0, Immature Granulocyte # (Auto) 0.0, Sodium Level 138, Potassium Level 3.4L, Chloride Level 101, Carbon Dioxide Level 28, Anion Gap 9, Blood Urea Nitrogen 8, Creatinine 0.64, Estimat Glomerular Filtration Rate 90, BUN/Creatinine Ratio 13, Glucose Level 191H, Calcium Level 8.0L, Corrected Calcium 9.1, Magnesium Level 1.5L, Total Bilirubin 0.3, Aspartate Amino Transf (AST/SGOT) 16, Alanine Aminotransferase (ALT/SGPT) 15, Alkaline Phosphatase 60, Total Protein 4.5L, Albumin 2.6L 01/04/22 11:08: Glucometer 188H 01/04/22 16:32: Glucometer 165H 01/04/22 20:32: Glucometer 163H 01/05/22 05:39: Glucometer 160H 01/05/22 08:32: White Blood Count 7.1, Red Blood Count 3.32L, Hemoglobin 8.7L, Hematocrit 28L, Mean Corpuscular Volume 84, Mean Corpuscular Hemoglobin 26, Mean Corpuscular Hemoglobin Concent 31L, Red Cell Distribution Width 13.9, Platelet Count 281, Mean Platelet Volume 8.7L, Immature Granulocyte % (Auto) 0, Neutrophils (%) (Auto) 78H, Lymphocytes (%) (Auto) 14, Monocytes (%) (Auto) 6, Eosinophils (%) (Auto) 2, Basophils (%) (Auto) 0, Neutrophils # (Auto) 5.5, Lymphocytes # (Auto) 1.0, Monocytes # (Auto) 0.4, Eosinophils # (Auto) 0.2, Basophils # (Auto) 0.0, Immature Granulocyte # (Auto) 0.0, Sodium Level 140, Potassium Level 3.5L, Chloride Level 104, Carbon Dioxide Level 27, Anion Gap 9, Blood Urea Nitrogen 9, Creatinine 0.61, Estimat Glomerular Filtration Rate 91, BUN/Creatinine Ratio 15, Glucose Level 168H, Calcium Level 7.9L, Corrected Calcium 9.0, Total Bilirubin 0.3, Aspartate Amino Transf (AST/SGOT) 14, Alanine Aminotransferase (ALT/SGPT) 14, Alkaline Phosphatase 58, Total Protein 4.5L, Albumin 2.6L 01/05/22 12:05: Glucometer 172H 01/05/22 15:51: Glucometer 167H 01/05/22 20:26: Glucometer 171H 01/06/22 05:50: Glucometer 150H 01/06/22 06:19: White Blood Count 6.6, Red Blood Count 3.34L, Hemoglobin 8.7L, Hematocrit 28L, Mean Corpuscular Volume 83, Mean Corpuscular Hemoglobin 26, Mean Corpuscular He moglobin Concent 31L, Red Cell Distribution Width 14.0, Platelet Count 285, Mean Platelet Volume 8.9L, Immature Granulocyte % (Auto) 1, Neutrophils (%) (Auto) 74, Lymphocytes (%) (Auto) 17, Monocytes (%) (Auto) 5, Eosinophils (%) (Auto) 3, Basophils (%) (Auto) 1, Neutrophils # (Auto) 4.9, Lymphocytes # (Auto) 1.1, Monocytes # (Auto) 0.4, Eosinophils # (Auto) 0.2, Basophils # (Auto) 0.0, Immature Granulocyte # (Auto) 0.0, Sodium Level 140, Potassium Level 3.4L, Chloride Level 108H, Carbon Dioxide Level 24, Anion Gap 8, Blood Urea Nitrogen 7, Creatinine 0.58L, Estimat Glomerular Filtration Rate 92, BUN/Creatinine Ratio 12, Glucose Level 191H, Calcium Level 7.5L, Corrected Calcium 8.7, Magnesium Level 1.4L, Total Bilirubin 0.2, Aspartate Amino Transf (AST/SGOT) 13, Alanine Aminotransferase (ALT/SGPT) 13, Alkaline Phosphatase 56, Total Protein 4.4L, Albumin 2.5L 01/06/22 11:35: Glucometer 191H 01/06/22 15:59: Glucometer 148H 01/06/22 20:19: Glucometer 186H 01/07/22 05:20: White Blood Count 5.6, Red Blood Count 3.17L, Hemoglobin 8.3L, Hematocrit 27L, Mean Corpuscular Volume 84, Mean Corpuscular Hemoglobin 26, Mean Corpuscular Hemoglobin Concent 31L, Red Cell Distribution Width 13.9, Platelet Count 286, Mean Platelet Volume 9.0, Immature Granulocyte % (Auto) 1, Neutrophils (%) (Auto) 66, Lymphocytes (%) (Auto) 22, Monocytes (%) (Auto) 6, Eosinophils (%) (Auto) 5, Basophils (%) (Auto) 0, Neutrophils # (Auto) 3.7, Lymphocytes # (Auto) 1.3, Monocytes # (Auto) 0.3, Eosinophils # (Auto) 0.3, Basophils # (Auto) 0.0, Immature Granulocyte # (Auto) 0.0, Sodium Level 144, Potassium Level 3.3L, Chl oride Level 110H, Carbon Dioxide Level 23, Anion Gap 11, Blood Urea Nitrogen 8, Creatinine 0.58L, Estimat Glomerular Filtration Rate 92, BUN/Creatinine Ratio 14, Glucose Level 191H, Calcium Level 7.6L, Corrected Calcium 8.8, Magnesium Level 1.3L, Total Bilirubin 0.2, Aspartate Amino Transf (AST/SGOT) 11, Alanine Aminotransferase (ALT/SGPT) 12, Alkaline Phosphatase 54, Total Protein 4.4L, Albumin 2.5L 01/07/22 10:58: Glucometer 157H Pending Labs Laboratory Tests 01/02/22 16:32: Glucometer 179 01/02/22 20:14: Glucometer 200 01/03/22 05:31: Glucometer 167 01/03/22 06:55: White Blood Count 5.0, Red Blood Count 3.46, Hemoglobin 9.2, Hematocrit 29, Mean Corpuscular Volume 83, Mean Corpuscular Hemoglobin 27, Mean Corpuscular Hemoglobin Concent 32, Red Cell Distribution Width 13.8, Platelet Count 280, Mean Platelet Volume 8.7, Immature Granulocyte % (Auto) 1, Neutrophils (%) (Auto) 77, Lymphocytes (%) (Auto) 12, Monocytes (%) (Auto) 7, Eosinophils (%) (Auto) 3, Basophils (%) (Auto) 1, Neutrophils # (Auto) 3.9, Lymphocytes # (Auto) 0.6, Monocytes # (Auto) 0.4, Eosinophils # (Auto) 0.1, Basophils # (Auto) 0.0, Immature Granulocyte # (Auto) 0.0, Sodium Level 141, Potassium Level 3.2, Chloride Level 99, Carbon Dioxide Level 29, Anion Gap 13, Blood Urea Nitrogen 8, Creatinine 0.63, Estimat Glomerular Filtration Rate 90, BUN/Creatinine Ratio 13, Glucose Level 189, Calcium Level 8.1, Corrected Calcium 9.2, Magnesium Level 1.3, Total Bilirubin 0.3, Aspartate Amino Transf (AST/SGOT) 15, Alanine Aminotransferase (ALT/SGPT) 13, Alkaline Phosphatase 59, Total Protein 4.7, Albumin 2.6 01/03/22 11:40: Glucometer 180 01/03/22 15:17: Glucometer 184 01/03/22 20:26: Glucometer 163 01/04/22 05:11: Glucometer 159 01/04/22 10:07: White Blood Count 5.1, Red Blood Count 3.31, Hemoglobin 8.8, Hematocrit 28, Mean Corpuscular Volume 83, Mean Corpuscular Hemoglobin 27, Mean Corpuscular Hemoglobin Concent 32, Red Cell Distribution Width 13.9, Platelet Count 277, Mean Platelet Volume 8.7, Immature Granulocyte % (Auto) 1, Neutrophils (%) (Auto) 74, Lymphocytes (%) (Auto) 15, Monocytes (%) (Auto) 7, Eosinophils (%) (Auto) 4, Basophils (%) (Auto) 0, Neutrophils # (Auto) 3.7, Lymphocytes # (Auto) 0.7, Monocytes # (Auto) 0.4, Eosinophils # (Auto) 0.2, Basophils # (Auto) 0.0, Immature Granulocyte # (Auto) 0.0, Sodium Level 138, Potassium Level 3.4, Chloride Level 101, Carbon Dioxide Level 28, Anion Gap 9, Blood Urea Nitrogen 8, Creatinine 0.64, Estimat Glomerular Filtration Rate 90, BUN/Creatinine Ratio 13, Glucose Level 191, Calcium Level 8.0, Corrected Calcium 9.1, Magnesium Level 1.5, Total Bilirubin 0.3, Aspartate Amino Transf (AST/SGOT) 16, Alanine Aminotransferase (ALT/SGPT) 15, Alkaline Phosphatase 60, Total Protein 4.5, Albumin 2.6 01/04/22 11:08: Glucometer 188 01/04/22 16:32: Glucometer 165 01/04/22 20:32: Glucometer 163 01/05/22 05:39: Glucometer 160 01/05/22 08:32: White Blood Count 7.1, Red Blood Count 3.32, Hemoglobin 8.7, Hematocrit 28, Mean Corpuscular Volume 84, Mean Corpuscular Hemoglobin 26, Mean Corpuscular Hemoglobin Concent 31, Red Cell Distribution Width 13.9, Platelet Count 281, Mean Platelet Volume 8.7, Immature Granulocyte % (Auto) 0, Neutrophils (%) (Auto) 78, Lymphocytes (%) (Auto) 14, Monocytes (%) (Auto) 6, Eosinophils (%) (Auto) 2, Basophils (%) (Auto) 0, Neutrophils # (Auto) 5.5, Lymphocytes # (Auto) 1.0, Monocytes # (Auto) 0.4, Eosinophils # (Auto) 0.2, Basophils # (Auto) 0.0, Immature Granulocyte # (Auto) 0.0, Sodium Level 140, Potassium Level 3.5, Chloride Level 104, Carbon Dioxide Level 27, Anion Gap 9, Blood Urea Nitrogen 9, Creatinine 0.61, Estimat Glomerular Filtration Rate 91, BUN/Creatinine Ratio 15, Glucose Level 168, Calcium Level 7.9, Corrected Calcium 9.0, Total Bilirubin 0.3, Aspartate Amino Transf (AST/SGOT) 14, Alanine Aminotransferase (ALT/SGPT) 14, Alkaline Phosphatase 58, Total Protein 4.5, Albumin 2.6 01/05/22 12:05: Glucometer 172 01/05/22 15:51: Glucometer 167 01/05/22 20:26: Glucometer 171 01/06/22 05:50: Glucometer 150 01/06/22 06:19: White Blood Count 6.6, Red Blood Count 3.34, Hemoglobin 8.7, Hematocrit 28, Mean Corpuscular Volume 83, Mean Corpuscular Hemoglobin 26, Mean Corpuscular Hemoglobin Concent 31, Red Cell Distribution Width 14.0, Platelet Count 285, Mean Platelet Volume 8.9, Immature Granulocyte % (Auto) 1, Neutrophils (%) (Au to) 74, Lymphocytes (%) (Auto) 17, Monocytes (%) (Auto) 5, Eosinophils (%) (Auto) 3, Basophils (%) (Auto) 1, Neutrophils # (Auto) 4.9, Lymphocytes # (Auto) 1.1, Monocytes # (Auto) 0.4, Eosinophils # (Auto) 0.2, Basophils # (Auto) 0.0, Immature Granulocyte # (Auto) 0.0, Sodium Level 140, Potassium Level 3.4, Chloride Level 108, Carbon Dioxide Level 24, Anion Gap 8, Blood Urea Nitrogen 7, Creatinine 0.58, Estimat Glomerular Filtration Rate 92, BUN/Creatinine Ratio 12, Glucose Level 191, Calcium Level 7.5, Corrected Calcium 8.7, Magnesium Level 1.4, Total Bilirubin 0.2, Aspartate Amino Transf (AST/SGOT) 13, Alanine Aminotransferase (ALT/SGPT) 13, Alkaline Phosphatase 56, Total Protein 4.4, Albumin 2.5 01/06/22 11:35: Glucometer 191 01/06/22 15:59: Glucometer 148 01/06/22 20:19: Glucometer 186 01/07/22 05:20: White Blood Count 5.6, Red Blood Count 3.17, Hemoglobin 8.3, Hematocrit 27, Mean Corpuscular Volume 84, Mean Corpuscular Hemoglobin 26, Mean Corpuscular Hemoglobin Concent 31, Red Cell Distribution Width 13.9, Platelet Count 286, Mean Platelet Volume 9.0, Immature Granulocyte % (Auto) 1, Neutrophils (%) (Auto) 66, Lymphocytes (%) (Auto) 22, Monocytes (%) (Auto) 6, Eosinophils (%) (Auto) 5, Basophils (%) (Auto) 0, Neutrophils # (Auto) 3.7, Lymphocytes # (Auto) 1.3, Monocytes # (Auto) 0.3, Eosinophils # (Auto) 0.3, Basophils # (Auto) 0.0, Immature Granulocyte # (Auto) 0.0, Sodium Level 144, Potassium Level 3.3, Chloride Level 110, Carbon Dioxide Level 23, Anion Gap 11, Blood Urea Nitrogen 8, Creatinine 0.58, Estimat Glomerular Filtration Rate 92, BUN/Creatinine Ratio 14, Glucose Level 191, Calcium Level 7.6, Corrected Calcium 8.8, Magnesium Level 1.3, Total Bilirubin 0.2, Aspartate Amino Transf (AST/SGOT) 11, Alanine Aminotransferase (ALT/SGPT) 12, Alkaline Phosphatase 54, Total Protein 4.4, Albumin 2.5 01/07/22 10:58: Glucometer 157 Discharge Home Medications: Active Scripts Active Pantoprazole Sodium 40 Mg Tablet.dr 40 Mg PO DAILY Sucralfate 1 Gram Tablet 1 Gm PO ACHS Olanzapine 2.5 Mg Tablet 5 Mg PO HS Amlodipine Besylate 5 Mg Tablet 5 Mg PO DAILY Lisinopril 20 Mg Tablet 20 Mg PO DAILY Reported Loperamide (Loperamide HCl) 2 Mg Capsule 2 Mg PO QID PRN Flonase Allergy Relief (Fluticasone Propionate) 50 Mcg/Actuation [place].susp 1-2 [place] NSEACH DAILY PRN Metformin HCl 1,000 Mg Tablet 1,000 Mg PO BID Calcium Carbonate 600 Mg Calcium (1500 Mg) Tablet 600 Mg PO DAILY Aspirin EC (Aspirin) 81 Mg Tablet.dr 81 Mg PO DAILY Memantine HCl 10 Mg Tablet 10 Mg PO BID Glimepiride 1 Mg Tablet 1 Mg PO BID Diphenhydramine HCl 25 Mg Capsule 25 Mg PO BID Fish Oil [place]-3 Softgel ([place]-3S/Dha/Epa/Fish Oil) 980 Mg-253 Mg-647 Mg-1,400 Mg Capsule.dr 1 Each PO BID Meclizine HCl 25 Mg Tablet 25 Mg PO BID Instructions to patient/family Please see electronic discharge instructions given to patient. JAMES BOWDEN DO Jan 07, 2022 06:39
[2022-01-07 07:45] VITALS: BP 174/82
[2022-01-07] MEDS: POTASSIUM BICARB 20 MEQ (EFFER-K) TABLET PO SCH (08:08)
[2022-01-07 09:32] VITALS: BP 174/82
--- NOTE | 2022-01-07 11:02 | Progress Note ---
ASHANTI WATTS 01/07/22 1102: Progress Note Patient is a 81 year old female that has been in swing bed following a hospital stay for a subtotal colectomy w/ileorectal anastamosis. During her hospital stay she developed a small bowel obstruction and subsequently had a NG tube placed. The obstruction resolved a day after the NG tube was placed. During her stay in swing bed stay she has made gradual improvements in her strength, pain, and overall status. The only concern with her during her swing bed stay was her potassium levels which became low after NG tube placement. Potassium levels were monitored throughout and replaced. As of now patient states she is pain free. She is eating well and sleeping well. Patient has been having regular bowel movements that have some solid form to them. She has had her IV access and PICC line removed. She is gaining her strength back slowly and has no complaints at this time. MAYRA BOWDEN DO 01/08/22 0548: Supervisory-Addendum Brief Verification & Attestation Participated in pt care: history, MDM, physical Personally performed: exam, history, MDM, supervision of care Care discussed with: Medical Student Procedures: n/a Results interpretation: Verified all documentation Verification and Attestation of Medical Student E/M Service A medical student performed and documented this service in my presence. I reviewed and verified all information documented by the medical student and made modifications to such information, when appropriate. I personally performed the physical exam and medical decision making. Mayra Bowden, Jan 08, 2022,05:48 ASHANTI WATTS Jan 07, 2022 11:02 MAYRA BOWDEN DO Jan 08, 2022 05:48
[2022-01-09] MEDS ORDERED: cloNIDine 0.1 MG PATCH (CATAPRES TTS) TDSY TD SCH (09:00)
[2022-01-10] MEDS ORDERED: CLONIDINE PATCH REMOVAL TP SCH (08:59)
== END 2022-01-07 09:40 | DRG 375 ==
LOC: 4TH 01-02 12:45
PROVIDERS: ADMIT Internal Medicine; ATTEND Internal Medicine
DX: C18.9 Malignant neoplasm of colon, unspecified (principal); K56.609 Unspecified intestinal obstruction, unspecified as to partial versus complete obstruction; K56.7 Ileus, unspecified; E87.6 Hypokalemia; E11.9 Type 2 diabetes mellitus without complications; I10 Essential (primary) hypertension; F03.90 Unspecified dementia, unspecified severity, without behavioral disturbance, psychotic disturbance, mood disturbance, and anxiety; R33.9 Retention of urine, unspecified; E66.9 Obesity, unspecified; Z68.39 Body mass index [BMI] 39.0-39.9, adult
CPT/HCPCS: 36415; 80053; 82947; 83735; 85025; 94640; 94760

== ENCOUNTER 2022-01-07 09:25 | Inpatient (IN) | payer MEDICARE ==
[~2022-01-07] VITALS: Ht 157 cm; Wt 90.4 kg
[2022-01-07 10:00] VITALS: BP 174/73
[2022-01-07] MEDS ORDERED: ACETAMINOPHEN 325 MG TABLET PO PRN (10:00)
[2022-01-07] MEDS ORDERED: NITROGLYCERIN 2% OINT 1 GM UNIT DOSE PACKET TOP PRN (10:00)
[2022-01-07] MEDS ORDERED: MELATONIN 3 MG TABLET PO PRN (10:00)
[2022-01-07] MEDS ORDERED: BISACODYL 10 MG SUPP (DULCOLAX) PR PRN (10:00)
[2022-01-07] MEDS ORDERED: RT-ALBUTEROL/IPRATROPIUM 3 ML (DUONEB) VIAL INH PRN (10:00)
[2022-01-07] MEDS ORDERED: diphenhydrAMINE 25 MG TAB (BENADRYL) PO PRN (10:00)
[2022-01-07] MEDS ORDERED: PATCH REMOVAL TP SCH (10:00)
[2022-01-07] MEDS ORDERED: CALCIUM CARBONATE 500 MG (TUMS) TAB.CHEW PO PRN (10:00)
[2022-01-07] MEDS ORDERED: LACTULOSE SYRUP 10GM/15ML (ENULOSE) 30ML UDC PO PRN (10:00)
[2022-01-07] MEDS ORDERED: guaiFENesin/CODEINE (ROBITUSSIN AC) 10ML UDC PO PRN (10:00)
[2022-01-07] MEDS ORDERED: CHLORASEPTIC SPRAY 177 ML LIQUID MC PRN (10:00)
[2022-01-07] MEDS ORDERED: HALOPERIDOL 5 MG/ML (HALDOL) VIAL IM PRN (10:00)
[2022-01-07] MEDS ORDERED: ALPRAZolam 0.25 MG (XANAX) TAB PO PRN (10:00)
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
--- NOTE | 2022-01-07 10:42 | Occupational Therapy Eval ---
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 Acosta Referral Reason: Evaluation/Treatment Medical History Pertinent Medical History: DM, Dementia, HTN, Neuropathy, TBI Current History Pt admitted to IRU post subtotal colectomy w/ileorectal anastamosis. Per patient, she lives in a single story home with her spouse. Spouse reports he helps patient get in/out of shower, threading feet into LB clothing, and donning socks/shoes. Pt able to manage all other adls without assist. Pt's spouse does all iadls. She uses a walker at baseline. Reviewed History: Yes Social History Home: Single Level Current Living Status: Spouse Entry Into Home: Stairs With Railing Steps Into Home: 3 ADL-Prior Level of Function SCALE: Activities may be completed with or without assistive devices. 1-Emaowtsubf-epdqnna completes the activity by him/herself with no assistance from a helper. 5-Set-up or Clean-up Assistance-helper sets up or cleans up; patient completes activity. [place] assists only prior to or following the activity. 4-Supervision or Touching Assistance-helper provides verbal cues and/or touching/steadying and/or contact guard assistance as patient completes activity. Assistance may be provided throughout the activity or intermittently. 3-Partial/Moderate Assistance-helper does LESS THAN HALF the effort. [place] lifts, holds or supports trunk or limbs, but provides less than half the effort. 2-Substantial/Maximal Assistance-helper does MORE THAN HALF the effort. [place] lifts or holds trunk or limbs and provides more than half the effort. 0-Pyngxfabe-oyxwdd does ALL the effort. Patient does none of the effort to complete the activity. Or, the assistance of 2 or more helpers is required for the patient to complete the activity. If activity was not attempted, code reason: 7-Patient Refused. 9-Not Applicable-not attempted and the patient did not perform the activity before the current illness, exacerbation or injury. 10-Not Attempted due to Environmental Limitations-(lack of equipment, weather restraints, etc.). 88-Not Attempted due to Medical Conditions or Safety Concerns. Self Care: Needed Some Help Functional Cognition: Needed Some Help DME/Equipment: Bath Chair, Grab Bars, Shower Drive Self: No OT Current Status Subjective Pt sitting on toilet upon OT arrival with nursing present. Co-treat with PT ([id number]) secondary to impaired mobility, weakness, poor safety, fall risk, and poor endurance. Appearance Pt left with PT in gym with all needs met. Mental Status/Objective Patient Orientation: Person, Confused, Situation Current Glasses/Contacts: Yes Hearing Aids: No Dentures/Partials: No Hand Dominance: Right Upper Extremity ROM Right: ~165 degrees Left: ~150 degrees Upper Extremity Strength Shoulders bilaterally: 3+/5 Rewinder Operator strength: Impaired ADL-Treatment Eating (QC): 4 Oral Hygiene (QC): 4 Shower/Bathe Self (QC): 7 Upper Body Dressing (QC): 3 Lower Body Dressing (QC): 1 On/Off Footwear (QC): 1 Toileting Hygiene (QC): 1 Sit <> stand transfers: mod assist. Mod verbal cues for safety during transfers. Partial sponge bath (with wet wipes) performed seated in chair. Pt able to wash without assist but needed cues for initiation. Pt likely will need assist to wash lower body as she is unable to reach past her knees. Dependent with lower b niki dressing due to lack of ROM, strength, balance in standing, and incisional pain. Pt needed increased time and cues for sequencing and orientation of shirt to complete upper body dressing. Pt performed oral hygiene with supervision and min cues. Other Treatments Pt participated in standing/gait activity in parallel bars. Poor standing tolerance and balance exhibited, requires bilateral UE support to maintain balance. Max cues for widening base of support and appropriate steps as pt has tendency to shuffle feet. Education OT Patient Education: Correct positioning, Energy conservation, Modified ADL techniques, Progress toward Goal/Update tx plan, Purpose of tx/functional activities, Rehab process, Safety issues, Transfer techniques, W/C management Teaching Recipient: Patient Teaching Methods: Demonstration, Discussion Response to Teaching: Verbalize Understanding, Return Demonstration, Re inforcement Needed OT Short Term Goals Short Term Goals Time Frame: Jan 17, 2022 Eatin Oral hygiene: 5 Toileting hygiene: 3 Shower/bathe self: 3 Upper body dressin Lower body dressin Putting on/taking off footwear: 2 OT Structural Steel Engineer Goals Prison Goals Time Frame: Jan 24, 2022 Eating (QC): 5 Oral Hygiene (QC): 5 Toileting Hygiene (QC): 4 Shower/Bathe Self (QC): 4 Upper Body Dressing (QC): 3 (set-up for shirt, min assist for bra) Lower Body Dressing (QC): 3 On/Off Footwear (QC): 2 Additional Goals: 1-Demonstrate ADL Tasks, 2-Verbalize Understanding, 3- ImproveStrength/Pat 1=Demonstrate adherence to instructed precautions during ADL tasks. 2=Patient will verbalize/demonstrate understanding of assistive devices/ modifications for ADL. 3=Patient will improve strength/tolerance for activity to enable patient to perform ADL's. OT Education/Plan Problem List/Assessment Assessment: Decreased Activ Tolerance, Decreased Safety Aware, Decreased UE Strength, Impaired Bed Mobility, Impaired Cognition, Impaired Coordination, Impaired Funct Balance, Impaired I ADL's, Impaired Self-Care Skills, Restricted Funct UE ROM Discharge Recommendations Plan/Recommendations: Continue POC Therapy Discharge Recommendati: Assisted Living Treatment Plan/Plan of Care Treatment,Training & Education: Yes Patient would benefit from OT for education, treatment and training to promote independence in ADL's, mobility, safety and/or upper extremity function for ADL's. Plan of Care: ADL Retraining, Caregiver Training, Cognitive Retraining, Functional Mobility, Group Exercise/Act as Ind, UE Funct Exercise/Act, UE Neuromus Re-Ed/Coord, W/C Management Training Treatment Duration: Jan 24, 2022 Frequency: At least 5 of 7 days/Wk (IRF) Estimated Hrs Per Day: 1.5 hours per day (60-75 minutes per day) Agreement: Yes Rehab Potential: Guarded Time/GCodes Start Time: 09:25 Stop Time: 10:50 Total Time Billed (hr/min): 75 Billed Treatment Time 1 visit EVM (10 minutes) ADL x3 (50 minutes) FA (15 minutes) OT eval ([id number]) PT eval ([id number]) Co-treat ([id number]) Dayna Crandall OT Jan 07, 2022 10:42
--- NOTE | 2022-01-07 10:57 | Physical Therapy Evaluation ---
PT Evaluation-General Medical Diagnosis Admission Date Jan 07, 2022 at 09:25 Medical Diagnosis: colon CA Onset Date: Dec 27, 2021 Therapy Diagnosis Therapy Diagnosis: impaired mobility, strength, endurance Precautions Precautions/Isolations: Fall Prevention, Standard Precautions Referral Physician: Mayra Acosta DO Reason for Referral: Evaluation/Treatment Medical History Pertinent Medical History: DM, Dementia, HTN, TBI Additional Medical History Past Medical History Surgeries: Abdominal, Adenoidectomy, Gallbladder, Tonsillectomy, Tracheostomy Cardiac: High Cholesterol, Hypertension Neurological: Dementia Menopausal Gastrointestinal: Chronic Diarrhea Endocrine: Diabetes, Non-Insulin dep HEENT: Cataract History of Blood Disorders: No Reviewed History: Yes Social History Home: Single Level Current Living Status: Spouse Entry Into Home: Stairs With Railing PT Steps Into Home: 3 Prior Prior Level of Function SCALE: Activities may be completed with or without assistive devices. 0-Kossahrvzc-yniacdg completes the activity by him/herself with no assistance from a helper. 5-Set-up or Clean-up Assistance-helper sets up or cleans up; patient completes activity. [place] assists only prior to or following the activity. 4-Supervision or Touching Assistance-helper provides verbal cues and/or touching/steadying and/or contact guard assistance as patient completes activity. Assistance may be provided throughout the activity or intermittently. 3-Partial/Moderate Assistance-helper does LESS THAN HALF the effort. [place] lifts, holds or supports trunk or limbs, but provides less than half the effort. 2-Substantial/Maximal Assistance-helper does MORE THAN HALF the effort. [place] lifts or holds trunk or limbs and provides more than half the effort. 8-Pxddnqtyu-jjhver does ALL the effort. Patient does none of the effort to complete the activity. Or, the assistance of 2 or more helpers is required for the patient to complete the activity. If activity was not attempted, code reason: 7-Patient Refused. 9-Not Applicable-not attempted and the patient did not perform the activity before the current illness, exacerbation or injury. 10-Not Attempted due to Environmental Limitations-(lack of equipment, weather restraints, etc.). 88-Not Attempted due to Medical Conditions or Safety Concerns. Bed Mobility: 6 Transfers (B,C,W/C): 6 Gait: 6 Stairs: 6 Indoor Mobility (Ambulation): Independent Stairs: Independent Prior Devices Use: Walker PT Evaluation-Current Subjective Patient in WC pre tx, agrees to PT, has unrated abdominal pain. Will be co- treating with OT for part of tx due to poor patient mobility, strength, endurance, severe debility, coordinate UE and LE during activity, safety and reduce risk of falls. Pt/Family Goals to be independent at home Objective Patient Orientation: Person, Place, Situation ROM/Strength ROM Lower Extremities limited due to obesity and BLE edema Strength Lower Extremities LLE (hip flexion 3/5, knee flexion 3+/5, knee extension 3+/5, dorsiflexion 4/5), RLE (hip flexion 3/5, knee flexion 3+/5, knee extension 3+/5, dorsiflexion 3+/5) Sensory Vision: Wears Glasses Hearing: Functional Sensation Right Lower Extremit: Intact Sensation Left Lower Extremity: Intact Transfers Roll Left & Right (QC): 2 Sit to Lying (QC): 1 Lying to Sitting/Side of Bed(Q: 1 Sit to Stand (QC): 3 Chair/Lwj-cf-Fpyqf Xfer(QC): 3 Toilet Transfer (QC): 3 Car Transfer (QC): 88 Patient performs rolling with max assist, supine <-> sit dependent, sit <-> stand mod assist, transfers min assist. Patient attempted a car transfer but was not able to perform it due to dizziness. Her BP was 174/73, HR was 107 bpm, O2 was 95%. A BP was not able to be obtained during standing because she could not stand long enough to get a reading. Gait Does the Patient Walk?: Yes Mode of Locomotion: Both Anticipated Mode of Locomotion: Walk Walk 10 feet (QC): 88 Walk 50 ft with 2 Turns(QC): 88 Walk 150 ft (QC): 88 Walking 10ft/uneven surface-QC: 88 Distance: 3'x3 Gait Assistive Device: Parallel Bars Comments/Gait Description Patient could ambulate 3' in the parallel bars with min assist Wheelchair Training Does the Pt Use a Wheelchair?: Yes Distance: 50'x2 Wheel 50 ft with 2 turns (QC): 2 Wheel 150 ft (QC): 88 Type of Wheelchair: Manual Patient was only able to assist with propelling a manual WC slightly with both hands, she pushes with her wrist, cannot lean forward and give a good push with her arms Stairs 1 Step (curb) (QC): 88 4 Steps (QC): 88 12 Steps (QC): 88 Balance Sitting Static: Fair Sitting Dynamic: Fair Standing Static: Poor Standing Dynamic: Poor Picking up an Object (QC): 88 Treatment Dressing and toileting, a second person was required to assist patient with wiping and pants. PT performed bed mobility and transfers, ambulation, WC mobil ity, toileting, positioning and safety during dressing, OT performed dressing, UE positioning and safety during activity. Assessment/Needs Patient in WC post tx with nurse call, phone, tray, all needs met. Patient has impaired mobility, strength, endurance. Patient gets dizzy with standing. Rehab Potential: Fair PT Short Term Goals Short Term Goals Time Frame: Jan 14, 2022 Roll Left & Right: 3 ([place]) Sit to lyin (Fawad) Lying to sitting on side of be: 3 (Fawad) Sit to stand: 3 (Fawad) Chair/efq-ew-fjpnv transfer: 4 (CGA) Walk 10 feet: 4 (CGA) PT Woodworker Goals Woodworker Goals PT Jail Goals Time Frame: Jan 28, 2022 Roll Left & Right (QC): 4 (SBA) Sit to Lying (QC): 4 (SBA) Lying-Sitting on Side/Bed(QC): 4 (SBA) Sit to Stand (QC): 4 (CGA) Chair/Hvh-as-Mzqmo Xfer(QC): 4 (SBA) Toilet Transfer (QC): 4 (SBA) Car Transfer (QC): 4 (CGA) Does the Patient Walk: Yes Walk 10 feet (QC): 4 (SBA) Walk 50ft with 2 Turns (QC): 4 (SBA) Walk 150 ft (QC): 4 (SBA) Walking 10ft on Uneven Surface: 4 (CGA) 1 Step (curb) (QC): 4 (CGA) 4 Steps (QC): 4 (CGA) 12 Steps (QC): 88 Picking up an Object (QC): 4 (CGA) Wheel 50 feet with 2 turns (QC: 9 Wheel 150 feet: 9 PT Plan Problem List Problem List: Activity Tolerance, Functional Strength, Safety, Balance, Gait, Transfer, Bed Mobility, ROM Treatment/Plan Treatment Plan: Continue Plan of Care Treatment Plan: Bed Mobility, Education, Functional Activity Pat, Functional Strength, Group Therapy, Gait, Safety, Therapeutic Exercise, Transfers Treatment Duration: Jan 28, 2022 Frequency: At least 5 of 7 days/Wk (IRF) Estimated Hrs Per Day: 1.5 hours per day Patient and/or Family Agrees t: Yes Safety Risks/Education Patient Education: Gait Training, Transfer Techniques, Correct Positioning, W/C Management, Safety Issues Teaching Recipient: Patient Teaching Methods: Demonstration, Discussion Response to Teaching: Reinforcement Needed Discharge Recommendations Plan Patient will perform bed mobility and transfer training, balance and endurance training, functional strengthening, stair training, gait training, and education, to improve functional mobility and independence at home. Therapy Discharge Recommendati: Scheduled Assistance, Home & Family, Post Acute PT Time/GCodes Time In: 1000 Time Out: 1100 Total Billed Treatment Time: 60 Total Billed Treatment 1 visit EVM 10' FA 50' PT eval from [id number], co-treat with OT from [id number] EMIL NOWAK PT Jan 07, 2022 10:57
[2022-01-07] MEDS: ENOXAPARIN 40 MG/0.4 ML (LOVENOX) SYR SC SCH (11:50)
[2022-01-07] MEDS: inSUlin ASPART (NovoLOG) 1 UNIT/0.01 ML (CHARGE PER UNIT) SC SCH ×3 (11:55→21:53)
[2022-01-07] MEDS ORDERED: cloNIDine 0.1 MG (CATAPRES) TAB PO NR (13:15)
[2022-01-07] MEDS ORDERED: cloNIDine 0.1 MG (CATAPRES) TAB PO PRN (13:15)
[2022-01-07] MEDS ORDERED: amLODIPine 5 MG (NORVASC) TAB PO NR (13:15)
--- NOTE | 2022-01-07 14:08 | Physical Therapy Daily Note ---
PT Daily Note-Current Subjective Patient knows this PT, however, not oriented to time or place. Very emotional. Pain Numeric Pain Scale: 10-Worst Possible Pain Location: Right, Left Location Body Site: Calf Pain Description: Pressure Comment: FLACC Mental Status Patient Orientation: Person, Confused Transfers SCALE: Activities may be completed with or without assistive devices. 8-Cwhcjtmvtf-tcdwjzz completes the activity by him/herself with no assistance from a helper. 5-Set-up or Clean-up Assistance-helper sets up or cleans up; patient completes activity. [place] assists only prior to or following the activity. 4-Supervision or Touching Assistance-helper provides verbal cues and/or touching/steadying and/or contact guard assistance as patient completes activ ity. Assistance may be provided throughout the activity or intermittently. 3-Partial/Moderate Assistance-helper does LESS THAN HALF the effort. [place] lifts, holds or supports trunk or limbs, but provides less than half the effort. 2-Substantial/Maximal Assistance-helper does MORE THAN HALF the effort. [place] lifts or holds trunk or limbs and provides more than half the effort. 6-Pruyexign-ejjtcs does ALL the effort. Patient does none of the effort to complete the activity. Or, the assistance of 2 or more helpers is required for the patient to complete the activity. If activity was not attempted, code reason: 7-Patient Refused. 9-Not Applicable-not attempted and the patient did not perform the activity before the current illness, exacerbation or injury. 10-Not Attempted due to Environmental Limitations-(lack of equipment, weather restraints, etc.). 88-Not Attempted due to Medical Conditions or Safety Concerns. Sit to Lying (QC): 1 (x 2) Sit to Stand (QC): 2 Chair/Uyz-st-[place] Xfer(QC): 2 Gait Training Distance: 15' x 2 Walk 10 feet (QC): 2 Gait Assistive Device: FWW severely flexed bilateral knees posture in stand and with gait/shuffle gait sequence Assessment Patient returned to bed dependent assist due to extreme fatigue. PT to increase activity as tolerated by patient. RN aware of patient mentation. PT Short Term Goals Short Term Goals Time Frame: Jan 14, 2022 Roll Left & Right: 3 (Fawad) Sit to lyin (Fawad) Lying to sitting on side of be: 3 (Fawad) Sit to stand: 3 (Fawad) Chair/yir-aj-gtbsn transfer: 4 (CGA) Walk 10 feet: 4 (CGA) PT Fpc Goals Fpc Goals PT Hog Counter Goals Time Frame: Jan 28, 2022 Roll Left & Right (QC): 4 (SBA) Sit to Lying (QC): 4 (SBA) Lying-Sitting on Side/Bed(QC): 4 (SBA) Sit to Stand (QC): 4 (CGA) Chair/Dzj-gy-Uxgqb Xfer(QC): 4 (SBA) Toilet Transfer (QC): 4 (SBA) Car Transfer (QC): 4 (CGA) Does the Patient Walk: Yes Walk 10 feet (QC): 4 (SBA) Walk 50ft with 2 Turns (QC): 4 (SBA) Walk 150 ft (QC): 4 (SBA) Walking 10ft on Uneven Surface: 4 (CGA) 1 Step (curb) (QC): 4 (CGA) 4 Steps (QC): 4 (CGA) 12 Steps (QC): 88 Picking up an Object (QC): 4 (CGA) Wheel 50 feet with 2 turns (QC: 9 Wheel 150 feet: 9 PT Plan Treatment/Plan Treatment Plan: Continue Plan of Care Treatment Plan: Bed Mobility, Education, Functional Activity Pat, Functional Strength, Group Therapy, Gait, Safety, Therapeutic Exercise, Transfers Treatment Duration: Jan 28, 2022 Frequency: At least 5 of 7 days/Wk (IRF) Estimated Hrs Per Day: 1.5 hours per day Patient and/or Family Agrees t: Yes Time/GCodes Time In: 1240 Time Out: 1255 Total Billed Treatment Time: 15 Total Billed Treatment 1 visit FA 15 min BAILEY CHÁVEZ PT Jan 07, 2022 14:08
--- NOTE | 2022-01-07 14:42 | ST Cognitive Linguistic Eval ---
Speech Evaluation-General Medical Diagnosis Disuse Myopathy Onset Date: Dec 27, 2021 Therapy Diagnosis Therapy Diagnosis: Impaired Cognitive Linguistic Skills Precautions Precautions: Fall, Pressure Ulcer Precautions/Isolations: Fall Prevention, Standard Precautions, Pressure Ulcer Referral Referring Physician: Dr. Acosta Reason for Referral: Evaluation/Treatment Medical History Pertinent Medical History: DM, Dementia, HTN, Neuropathy, TBI Current History The patient was admitted to IRU following a subtotal colectomy w/ileorectal anastamosis. Reviewed History: Yes Social History Current Living Status: Spouse Speech PLF-Current Status Prior Level of Function The patient and denied a new onset of confusion, recent confusion, or fluctuations in the patient's cognition throughout her recent acute admission. Subjective The patient was seated upright in her bed, awake and alert upon entrance to her room by the clinician. The patient greeted the clinician appropriately and was agreeable to participation in the cognitive linguistic assessment. The patient's remains at bedside throughout the evaluation. Language Eval: Auditory Comprehends Simple Yes/No Ques: Functional Indent/Objects Multiple Young: Functional Ident/Pics in Multiple Young: Functional Follows 1-Step Commands: Functional Follows General Conversations: Functional Language Eval: Verbal Language Completes Spontaneous Greeting: Functional Produces Auto, Serial Info: Functional Imitates Simple Words/Phrases: Functional Word Finding: Functional Requests Basic Needs: Functional States Basic Personal Info: Functional Cognitive Patient Orientation The patient was not oriented to month, year, or day of the week. Objective Cognitive Domain Attention: Mild Memory: Moderate Problem Solving: Moderate Executive Functions: Moderate Visuospatial Skills: WNL Composite Severity Rating: Mild (Mild to Moderate.) Clock Drawing Severity Rating: Moderate Objective Formal/Standardized Tests [facility] Mental Status Exam Results The patient displayed a result of +18/30 on the SLUMS correlating to a result of "dementia." Oral Motor/Speech Production The patient does not display dysarthria or apraxia of speech at this time. The patient remains 100% intelligible in known and unknown contexts. Impression Throughout the patient's evaluation, the patient displayed cognitive skills similar to her most recent diagnosis and at self-reported (and spouse reported) baseline. Due to the patient's known dementia with fluctuating periods of confusion, speech pathology did not deem skilled services appropriate. To note, the patient does display a baseline mild neurocognitive deficit, most notably in the areas of memory and problem solving. Following the evaluation, the clinician returned to the patient's room to aid her in ordering her lunch. At this time, the patient was disoriented, stating she was "on her way to picker feeder my friends." The patient stated she was not on the rehabilitation floor nor at the hospital. Due to the confusion, speech pathology will initially provided skilled services to monitoring for re- orientation. Speech Patient Assess Expression of Ideas/Wants: Exhibits (3) Understanding Verbal Content: Usually Understands (3) Brief Interview-Mental Status: Yes Repetition of Three Words: Three (3) Temporal Orientation: Year: Missed by 1 year (2) Temporal Orientation: Month: Missed by 6 days-1 month (1) Temporal Orientation: Day: Incorrect or No Answer(0) Recall : Wear to say "Sock": Yes, no cue required (2) Recall : Color: Yes, after cueing (1) Recall : Bed: Yes,after cueing (1) Memory/Recall Ability: Staff names and faces, That he or she is in a hsp/hsp unit Speech Short Term Goals Short Term Goals Short Term Goals 1. The patient will demonstrate accurate orientation over the span of three occasions with 100% accuracy, independently. Time Frame-STG: Three Days. Speech Podiatric Physician Goals Residential Goals 1. The patient will demonstrate improved cognitive linguistic function for safe discharge to the least restrictive environment. Speech-Plan Treatment Plan Speech Therapy Treatment Plan: Continue Plan of Care Speech pathology will continue plan of care pending return to baseline cognition (reduction of fluctuating confusion). Treatment Duration: Jan 15, 2022 Frequency: Modified Program (IRF) (Four to five times per week.) Estimated Hrs Per Day: .5 hour per day Rehab Potential: Guarded Safety Risks/Education Teaching Recipient: Patient, Significant Other Teaching Methods: Discussion Response to Teaching: Verbalize Understanding Education Topics Provided: Results, Plan of Care, Recommendations Time Speech Therapy Time In: 11:00 Speech Therapy Time Out: 11:30 Total Billed Time: 30 Billed Treatment Time 1, NANCY GOODEN [facility] Jan 07, 2022 14:42
[2022-01-07] MEDS: HYDROcodone/APAP 5 MG/325 MG (LORTAB) TAB PO PRN (17:01)
[2022-01-07 17:59] VITALS: BP 174/73
[2022-01-07] MEDS: CHOLESTYRAMINE 4 GM (QUESTRAN LITE, PREVALITE) PKT PO SCH ×2 (18:05→21:53)
[2022-01-07] MEDS: LOPERAMIDE 2 MG (IMODIUM) TABLET PO PRN (18:37)
[2022-01-07] MEDS: polyethylene glycoL POWDER 17 GM (MIRALAX) PACK PO SCH (20:34)
[2022-01-07 21:35] VITALS: BP 137/74
[2022-01-07] MEDS: OLANZapine 5 MG ODT (ZyPREXA ZYDIS) PO SCH (21:52)
[2022-01-07] MEDS: amLODIPine 5 MG (NORVASC) TAB PO SCH (21:53)
[2022-01-08] MEDS: inSUlin ASPART (NovoLOG) 1 UNIT/0.01 ML (CHARGE PER UNIT) SC SCH ×5 (06:22→21:28)
--- NOTE | 2022-01-08 06:22 | Progress Note - Surgery ---
JERO SILVAC 01/08/22 0622: Subjective Date Seen by a Provider: Jan 08, 2022 Time Seen by a Provider: 06:19 Subjective/Events-last exam Patient is awake and alert in her bed this morning, no family at bedside. Patient reports that her nausea and pain are well controlled. Patient reports that she has been tolerating her diet well and continuing to pass stools. Patient has no new symptoms to report. Review of Systems General: No Chills, No Night Sweats HEENT: No Head Aches, No Visual Changes Pulmonary: No Dyspnea, No Cough Cardiovascular: No: Chest Pain, Palpitations Gastrointestinal: No: Vomiting, Abdominal Pain Genitourinary: No Dysuria, No Frequency Musculoskeletal: No: neck pain, shoulder pain Neurological: Weakness; No: Numbness Objective Exam Vital Signs Date Time Temp Pulse Resp B/P (MAP) Pulse Ox O2 Delivery O2 Flow Rate FiO2 01/07/22 21:35 36.5 93 20 137/74 (95) 96 Room Air 01/07/22 21:00 96 Room Air 01/07/22 18:07 95 Room Air 01/07/22 17:59 36.2 107 95 21 01/07/22 12:08 Room Air 01/07/22 10:00 36.2 107 20 174/73 (106) 95 Room Air Capillary Refill : General Appearance: No Apparent Distress, Chronically ill, Obese HEENT: PERRL/EOMI, Normal ENT Inspection Neck: Normal Inspection, Non Tender, Supple Respiratory: Chest Non Tender, Lungs Clear, No Accessory Muscle Use, No Respiratory Distress Cardiovascular: Regular Rate, Rhythm, No JVD, Normal Peripheral Pulses Extremity: Normal Inspection, Normal Range of Motion, Non Tender Neurologic/Psychiatric: Alert, Disoriented Skin: Normal Color, Warm/Dry Lymphatic: No Adenopathy Results Lab Laboratory Tests 01/07/22 21:37: Glucometer 199H Assessment/Plan Assessment/Plan Assessment/Plan S/p subtotal colectomy w/ileorectal anastamosis Colon cancer N/V Postop urinary retention Obesity Postop ileus Hypokalemia Continue PT/OT/ST, encouraged patient to continue ambulating and using incentive spirometer. Continue pain control. Continue antiemetics Pt is tolerating regular diet well. Continue to monitor potassium and replace as needed. KEERTHI PARKS DO 01/08/22 0804: Subjective Subjective/Events-last exam Patient feeling well. Pain controlled. Diarrhea. Denies n/v fever sweats chills shortness of breath or chest pain. Objective Exam General Appearance: No Apparent Distress, Chronically ill, Obese HEENT: PERRL/EOMI, Normal ENT Inspection Neck: Normal Inspection, Non Tender, Supple Respiratory: Chest Non Tender, No Accessory Muscle Use, No Respiratory Distress Cardiovascular: Regular Rate, Rhythm, No JVD Gastrointestinal: soft, other (incision c/d/i) Extremity: Normal Inspection, Non Tender Neurologic/Psychiatric: Alert, Disoriented Skin: Normal Color, Warm/Dry Lymphatic: No Adenopathy Assessment/Plan Assessment/Plan Assessment/Plan S/p subtotal colectomy w/ileorectal anastamosis Colon cancer N/V Postop urinary retention Obesity Diarrhea Hypokalemia Continue PT/OT/ST, encouraged patient to continue ambulating and using incentive spirometer. Continue pain control. Continue antiemetics Pt is tolerating diet. Continue to monitor potassium and replace as needed. Will sign off call if needed. Supervisory-Addendum Brief Verification & Attestation Participated in pt care: history, MDM, physical Personally performed: exam, history, MDM, supervision of care Care discussed with: Medical Student Procedures: n/a Results interpretation: Verified all documentation Verification and Attestation of Medical Student E/M Service A medical student performed and documented this service in my presence. I reviewed and verified all information documented by the medical student and made modifications to such information, when appropriate. I personally performed the physical exam and medical decision making. Keerthi Parks, Jan 08, 2022,08:04 DARREN SILVA Jan 08, 2022 06:22 KEERTHI PARKS DO Jan 08, 2022 08:04
[2022-01-08] MEDS: PANTOPRAZOLE 40 MG (PROTONIX) TAB PO SCH (06:38)
[2022-01-08 06:45] LABS: ALBUMIN 2.4 GM/DL (3.2-4.5); POTASSIUM 3.3 MMOL/L (3.6-5.0)
[2022-01-08 06:46] LABS: CALCIUM 7.4 MG/DL (8.5-10.1)
[2022-01-08 06:47] LABS: TOTAL PROTEIN 4.2 GM/DL (6.4-8.2)
[2022-01-08 06:49] LABS: BILIRUBIN,TOTAL 0.2 MG/DL (0.1-1.0)
[2022-01-08 06:51] LABS: CREATININE SERUM 0.57 MG/DL (0.60-1.30)
[2022-01-08 07:16] VITALS: BP 168/72
[2022-01-08 08:11] VITALS: BP 168/72
--- NOTE | 2022-01-08 08:21 | Occupational Ther Daily Note ---
OT Current Status-Daily Note Subjective Pt sitting in recliner alert. Pt agrees to therapy. No c/o pain at this time. Mental Status/Objective Patient Orientation: Person, Place, Time, Situation ADL-Treatment Pt set up for meals. Pt agrees to shower. Pt min A sit to stand with FWW. Pt SPT to , CGA. Pt independent oral care, sitting at sink. Pt transferred to raised shower bench using grabbars, min A. Pt completed 80% of shower by self, sat on bench 100% of the time during shower. Pt stated she could not reach her lower legs/feet, after refusal to attempt pt given long handled sponge to complete shower. Pt SPT to from raised shower bench, using grabbars, mod A. After set up pt doffed/donned UB clothing by self. Pt max A for doffing/donning LB clothing. Dependent for footwear. Pt became fearful when standing to hike clothing over hips, required encouraging words to remain calm and standing. Pt ambulated with FWW to recliner, CGA. Pt sitting in recliner call light/phone in reach. All needs met in room. Therapy Code Descriptions/Definitions Functional [place] Measure: 0=Not Assessed/NA 4=Minimal Assistance 1=Total Assistance 5=Supervision or Setup 2=Maximal Assistance 6=Modified [place] 3=Moderate Assistance 7=Complete IndependenceSCALE: Activities may be completed with or without assistive devices. 4-Vdjujubchj-furxajw completes the activity by him/herself with no assistance from a helper. 5-Set-up or Clean-up Assistance-helper sets up or cleans up; patient completes activity. [place] assists only prior to or following the activity. 4-Supervision or Touching Assistance-helper provides verbal cues and/or touching/steadying and/or contact guard assistance as patient completes activit y. Assistance may be provided throughout the activity or intermittently. 3-Partial/Moderate Assistance-helper does LESS THAN HALF the effort. [place] lifts, holds or supports trunk or limbs, but provides less than half the effort. 2-Substantial/Maximal Assistance-helper does MORE THAN HALF the effort. [place] lifts or holds trunk or limbs and provides more than half the effort. 1-Vmfbplrjn-fsssaa does ALL the effort. Patient does none of the effort to complete the activity. Or, the assistance of 2 or more helpers is required for the patient to complete the activity. If activity was not attempted, code reason: 7-Patient Refused. 9-Not Applicable-not attempted and the patient did not perform the activity before the current illness, exacerbation or injury. 10-Not Attempted due to Environmental Limitations-(lack of equipment, weather restraints, etc.). 88-Not Attempted due to Medical Conditions or Safety Concerns. Eating (QC): 5 Oral Hygiene (QC): 6 Bathing Location: L Arm, R Arm, L Upper Leg, R Upper Leg, Chest, Abdomen Shower/Bathe Self (QC): 3 (Mod A) Upper Body Dressing (QC): 5 Lower Body Dressing (QC): 2 On/Off Footwear: 1 OT Short Term Goals Short Term Goals Time Frame: Jan 17, 2022 Eatin Oral hygiene: 5 Toileting hygiene: 3 Shower/bathe self: 3 Upper body dressin Lower body dressin Putting on/taking off footwear: 2 OT Testing Tech Goals Testing Tech Goals Time Frame: Jan 24, 2022 Eating (QC): 5 Oral Hygiene (QC): 5 Toileting Hygiene (QC): 4 Shower/Bathe Self (QC): 4 Upper Body Dressing (QC): 3 (set-up for shirt, min assist for bra) Lower Body Dressing (QC): 3 On/Off Footwear (QC): 2 Additional Goals: 1-Demonstrate ADL Tasks, 2-Verbalize Understanding, 3- ImproveStrength/Pat 1=Demonstrate adherence to instructed precautions during ADL tasks. 2=Patient will verbalize/demonstrate understanding of assistive devices/modifications for ADL. 3=Patient will improve strength/tolerance for activity to enable patient to perform ADL's. OT Education/Plan Problem List/Assessment Assessment: Decreased Activ Tolerance, Decreased Safety Aware, Decreased UE Strength, Impaired Cognition, Impaired Coordination, Impaired Self-Care Skills Discharge Recommendations Plan/Recommendations: Continue POC Treatment Plan/Plan of Care Patient would benefit from OT for education, treatment and training to promote independence in ADL's, mobility, safety and/or upper extremity function for ADL's. Plan of Care: ADL Retraining, Caregiver Training, Cognitive Retraining, Fu nctional Mobility, Group Exercise/Act as Ind, UE Funct Exercise/Act, UE Neuromus Re-Ed/Coord, W/C Management Training Treatment Duration: Jan 24, 2022 Frequency: At least 5 of 7 days/Wk (IRF) Estimated Hrs Per Day: 1.5 hours per day (60-75 minutes per day) Agreement: Yes Rehab Potential: Guarded Time/GCodes Start Time: 07:15 Stop Time: 08:30 Total Time Billed (hr/min): 75 Billed Treatment Time 1 visit-ADL 5 (75 min) BLANCA MO Jan 08, 2022 08:21
[2022-01-08] MEDS: ENOXAPARIN 40 MG/0.4 ML (LOVENOX) SYR SC SCH (08:43)
[2022-01-08] MEDS: amLODIPine 5 MG (NORVASC) TAB PO SCH ×2 (08:43→21:25)
[2022-01-08] MEDS: HYDROcodone/APAP 5 MG/325 MG (LORTAB) TAB PO PRN ×2 (09:28→17:58)
[2022-01-08] MEDS: polyethylene glycoL POWDER 17 GM (MIRALAX) PACK PO SCH ×2 (09:29→21:25)
--- NOTE | 2022-01-08 09:40 | Physical Therapy Daily Note ---
PT Daily Note-Current Subjective Pt. up in recliner, agrees to Rx but c/o so severe she cannot recline for ex in recliner, has great difficulty walking and cant tolerate walking prado to recliner after toileting. rates pain 5/10 but functionally and facially pts pain appears to be much higher, This LEVEL VIAL SEALER explained the pain scale but pt. still did not rate higher, Nursing was consulted and pain meds to be given after nurse assesses Pain Numeric Pain Scale: 5-Moderate Pain Location: Medial Location Body Site: Abdomen Pain Description: Stabbing Appearance pain c/o and moaning and groaning and resistance with all movement. Edema noted LEs Mental Status Patient Orientation: Person Transfers SCALE: Activities may be completed with or without assistive devices. 3-Dqqmmtomhf-vsnhrvp completes the activity by him/herself with no assistance from a helper. 5-Set-up or Clean-up Assistance-helper sets up or cleans up; patient completes activity. [place] assists only prior to or following the activity. 4-Supervision or Touching Assistance-helper provides verbal cues and/or touching/steadying and/or contact guard assistance as patient completes activity. Assistance may be provided throughout the activity or intermittently. 3-Partial/Moderate Assistance-helper does LESS THAN HALF the effort. [place] lifts, holds or supports trunk or limbs, but provides less than half the effort. 2-Substantial/Maximal Assistance-helper does MORE THAN HALF the effort. [place] lifts or holds trunk or limbs and provides more than half the effort. 6-Tsuakkicr-zsqisv does ALL the effort. Patient does none of the effort to complete the activity. Or, the assistance of 2 or more helpers is required for the patient to complete the activity. If activity was not attempted, code reason: 7-Patient Refused. 9-Not Applicable-not attempted and the patient did not perform the activity before the current illness, exacerbation or injury. 10-Not Attempted due to Environmental Limitations-(lack of equipment, weather restraints, etc.). 88-Not Attempted due to Medical Conditions or Safety Concerns. Sit to Stand (QC): 3 Toilet Transfer (QC): 3 mod to max assist one sit to stand from recliner and toilet, mod to max assist SPT in bthrm toilet to w/c Gait Training Does the Patient Walk?: Yes Walk 10 feet (QC): 3 Gait Persons Needed: 1 (plus w/c behind pt.) Gait Assistive Device: FWW pt. ambulated 15 ft to bthrm , very laborious, moaning , c/o pain that escalated with movement, after toileting pts. c/o exacerbated and she was unable to stand very long to get pants up and could not walk back to the recliner, w/c was brought for pt to SPT which was also mod to max Exercises Supine Ex: Ankle pumps, Quad Set, Glut sets, Heel Slides, Straight leg raise Supine Reps: 10 Seated Therapy Exercises: Sit to stand Seated Reps: 6 Treatments reclined in chair for LE therex, sit to stands mod to max, short gait poor alignment, heavy wt bearing on FWW very short step length, very narrow steps, max asst clean up and clothing after toileting, pt. claimed her pain was too intense to walk back, pt. was assisted to w/c , up in room after with nurse stud and call francois. Assessment Current Status: Poor Progress dependent for all , does not initiate activity or movement without great encouragement and instruction, appears in pain, nursing to assess PT Short Term Goals Short Term Goals Time Frame: Jan 14, 2022 Roll Left & Right: 3 (Fawad) Sit to lyin (Fawad) Lying to sitting on side of be: 3 (Fawad) Sit to stand: 3 (Fawad) Chair/qqd-vg-lzljy transfer: 4 (CGA) Walk 10 feet: 4 (CGA) PT Fdc Goals Fdc Goals PT [place] Measurer Goals Time Frame: Jan 28, 2022 Roll Left & Right (QC): 4 (SBA) Sit to Lying (QC): 4 (SBA) Lying-Sitting on Side/Bed(QC): 4 (SBA) Sit to Stand (QC): 4 (CGA) Chair/Jgm-js-Jghwy Xfer(QC): 4 (SBA) Toilet Transfer (QC): 4 (SBA) Car Transfer (QC): 4 (CGA) Does the Patient Walk: Yes Walk 10 feet (QC): 4 (SBA) Walk 50ft with 2 Turns (QC): 4 (SBA) Walk 150 ft (QC): 4 (SBA) Walking 10ft on Uneven Surface: 4 (CGA) 1 Step (curb) (QC): 4 (CGA) 4 Steps (QC): 4 (CGA) 12 Steps (QC): 88 Picking up an Object (QC): 4 (CGA) Wheel 50 feet with 2 turns (QC: 9 Wheel 150 feet: 9 PT Plan Treatment/Plan Treatment Plan: Continue Plan of Care Treatment Plan: Bed Mobility, Education, Functional Activity Pat, Functional Strength, Group Therapy, Gait, Safety, Therapeutic Exercise, Transfers Treatment Duration: Jan 28, 2022 Frequency: At least 5 of 7 days/Wk (IRF) Estimated Hrs Per Day: 1.5 hours per day Patient and/or Family Agrees t: Yes Safety Risks/Education Patient Education: Gait Training, Transfer Techniques, Correct Positioning, Disease Process, Safety Issues Teaching Recipient: Patient Teaching Methods: Demonstration, Discussion Response to Teaching: Unable to Return Demonstration, Unable to Comprehend, Reinforcement Needed Time/GCodes Time In: 900 Time Out: 930 Total Billed Treatment Time: 30 Total Billed Treatment 1,FA15m,GT15m SCOTTIE MANCERA LEVEL VIAL SEALER Jan 08, 2022 09:40
--- NOTE | 2022-01-08 10:50 | Physical Therapy Daily Note ---
PT Daily Note-Current Subjective Confused, knows her name but not what this place is, c/o intense pain in left knee with wt bearing but does not rate. comments several times that she is very fearful of falling, resists on feet and gait with FWW secondary ot this, resists when TRFing 2 this Mental Status Patient Orientation: Confused Transfers SCALE: Activities may be completed with or without assistive devices. 9-Qesklrzysz-amsynqi completes the activity by him/herself with no assistance from a helper. 5-Set-up or Clean-up Assistance-helper sets up or cleans up; patient completes activity. [place] assists only prior to or following the activity. 4-Supervision or Touching Assistance-helper provides verbal cues and/or touching/steadying and/or contact guard assistance as patient completes activity. Assistance may be provided throughout the activity or intermittently. 3-Partial/Moderate Assistance-helper does LESS THAN HALF the effort. [place] lifts, holds or supports trunk or limbs, but provides less than half the effort. 2-Substantial/Maximal Assistance-helper does MORE THAN HALF the effort. [place] lifts or holds trunk or limbs and provides more than half the effort. 1-Cxvdsgptq-zddgys does ALL the effort. Patient does none of the effort to complete the activity. Or, the assistance of 2 or more helpers is required for the patient to complete the activity. If activity was not attempted, code reason: 7-Patient Refused. 9-Not Applicable-not attempted and the patient did not perform the activity before the current illness, exacerbation or injury. 10-Not Attempted due to Environmental Limitations-(lack of equipment, weather restraints, etc.). 88-Not Attempted due to Medical Conditions or Safety Concerns. sit to stand , SPT all max to mod assist 1-2. Gait Training Walk 10 feet (QC): 3 Gait Persons Needed: 2 Gait Assistive Device: Parallel Bars 8ft x 2 // bars min to mod asst and w/c close behind as right knee melts, gait with fww 8 ft x 2 mod asst of 2 , pt. threatens so sit through all, turns keisha difficult as pt. begins to sit before reaching destination Wheelchair Training Does the Pt Use a Wheelchair?: Yes Type of Wheelchair: Manual 5-6 ft with poor control with hands , no use of feet, needs assist to brake and manage all Exercises Seated Therapy Exercises: Sit to stand, Long arc quads Seated Reps: 8 NuStep Minutes: 12 NuStep Workload: 1 Treatments TRFs w/c, chair and toilet, all SPTs, mod to max asst 1-2, gait short dist fWW and in // bars with great fear and resistance also mod asst 2, nustep Assessment Current Status: Poor Progress dependent for all mob PT Short Term Goals Short Term Goals Time Frame: Jan 14, 2022 Roll Left & Right: 3 (Fawad) Sit to lyin (Fawad) Lying to sitting on side of be: 3 (Fawad) Sit to stand: 3 (Fawad) Chair/kfu-tn-ftjwy transfer: 4 (CGA) Walk 10 feet: 4 (CGA) PT Chcf Goals Licensed Journeyman Electrician Goals PT Licensed Journeyman Electrician Goals Time Frame: Jan 28, 2022 Roll Left & Right (QC): 4 (SBA) Sit to Lying (QC): 4 (SBA) Lying-Sitting on Side/Bed(QC): 4 (SBA) Sit to Stand (QC): 4 (CGA) Chair/Jze-eb-Igwxy Xfer(QC): 4 (SBA) Toilet Transfer (QC): 4 (SBA) Car Transfer (QC): 4 (CGA) Does the Patient Walk: Yes Walk 10 feet (QC): 4 (SBA) Walk 50ft with 2 Turns (QC): 4 (SBA) Walk 150 ft (QC): 4 (SBA) Walking 10ft on Uneven Surface: 4 (CGA) 1 Step (curb) (QC): 4 (CGA) 4 Steps (QC): 4 (CGA) 12 Steps (QC): 88 Picking up an Object (QC): 4 (CGA) Wheel 50 feet with 2 turns (QC: 9 Wheel 150 feet: 9 PT Plan Treatment/Plan Treatment Plan: Continue Plan of Care Treatment Plan: Bed Mobility, Education, Functional Activity Pat, Functional Strength, Group Therapy, Gait, Safety, Therapeutic Exercise, Transfers Treatment Duration: Jan 28, 2022 Frequency: At least 5 of 7 days/Wk (IRF) Estimated Hrs Per Day: 1.5 hours per day Patient and/or Family Agrees t: Yes Safety Risks/Education Patient Education: Gait Training, Transfer Techniques, Correct Positioning, Disease Process, Safety Issues Teaching Recipient: Patient Teaching Methods: Discussion Response to Teaching: Unable to Return Demonstration, Unable to Comprehend, Reinforcement Needed Time/GCodes Time In: 1000 Time Out: 1045 Total Billed Treatment Time: 45 Total Billed Treatment 1,EX15m,GT15m,FA15m SCOTTIE MANCERA PELT GRADER Jan 08, 2022 10:50
--- NOTE | 2022-01-08 10:52 | Speech Therapy Daily Note ---
Speech Daily Progress Note Subjective Date Seen by Provider: Jan 08, 2022 Time Seen by Provider: 09:30 The patient was seated upright in her wheelchair, awake and alert upon entrance to her room by the clinician. The patient greeted the clinician appropriately and was agreeable to participation in the cognitive linguistic treatment session. Objective The patient and clinician discussed the patient's confusion during her most recent treatment session. The clinician provided the episode to the patient, who stated, "Oh yes, I remember that. I was talking about seeing my friends from [place]." Per patient, she has not experienced additional periods of confusion since the treatment session yesterday. The patient's RN stated the patient did display fluctuating confusion through her physical therapy session. 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 The patient and clinician worked towards improved orientation with use of the in-room white board. The patient independently located orientation information and was able to accurately provide the information to the clinician. Maximum redirection was required as the patient continues to complete work in her address book. As the patient has a journal present, the clinician suggested the patient use the book as a memory journal to record daily events and aid in orientation. Assessment Assessment Current Status: Fair Progress Treatment Plan Continue Plan of Care Speech Short Term Goals Short Term Goals Short Term Goals 1. The patient will demonstrate accurate orientation over the span of three occasions with 100% accuracy, independently. Time Frame-STG: Three Days. Speech Clinical Veterinarian Goals [facility] Goals 1. The patient will demonstrate improved cognitive linguistic function for safe discharge to the least restrictive environment. Speech-Plan Treatment Plan Speech Therapy Treatment Plan: Continue Plan of Care Treatment Duration: Jan 15, 2022 Frequency: Modified Program (IRF) (Four to five times per week.) Estimated Hrs Per Day: .5 hour per day Rehab Potential: Guarded Safety Risks/Education Teaching Recipient: Patient Teaching Methods: Demonstration, Discussion Response to Teaching: Verbalize Understanding, Return Demonstration, Reinforcement Needed Education Topics Provided: Orientation Strategies Time Speech Therapy Time In: 09:30 Speech Therapy Time Out: 10:00 Total Billed Time: 30 Billed Treatment Time 1 NANCY Noemi RHIANNA HANSON Jan 08, 2022 10:52
--- NOTE | 2022-01-08 11:45 | PM&R Progress Note ---
Subjective HPI/CC On Admission Date Seen by Provider: Jan 08, 2022 Subjective/Events-last exam 01/09/2022: Patient doing better Pain improved No falls Cognition is labile visits often Review of Systems General: Fatigue, Malaise Neurological: Weakness, Incoordination, Confusion Objective Exam Vital Signs Vital Signs Date Time Temp Pulse Resp B/P (MAP) Pulse Ox O2 Delivery O2 Flow Rate FiO2 01/08/22 19:10 36.4 104 18 147/70 (95) 91 Room Air 01/08/22 08:11 21 01/08/22 08:09 0.00 Capillary Refill : General Appearance: No Apparent Distress, Chronically ill, Obese HEENT: PERRL/EOMI, Normal ENT Inspection Neck: Normal Inspection, Non Tender, Supple Respiratory: Chest Non Tender, No Accessory Muscle Use, No Respiratory Distress Cardiovascular: Regular Rate, Rhythm, No JVD Gastrointestinal: Normal Bowel Sounds, No Organomegaly, No Pulsatile Mass, Non Tender, Soft Back: Normal Inspection, No CVA Tenderness, No Vertebral Tenderness Extremity: Normal Inspection, Non Tender Neurologic/Psychiatric: Alert, Disoriented Skin: Normal Color, Warm/Dry Lymphatic: No Adenopathy Results/Procedures Lab Laboratory Tests 01/08/22 06:17 01/08/22 12:00 Patient resulted labs reviewed. FIM Transfers Therapy Code Descriptions/Definitions Functional [place] Measure: 0=Not Assessed/NA 4=Minimal Assistance 1=Total Assistance 5=Supervision or Setup 2=Maximal Assistance 6=Modified [place] 3=Moderate Assistance 7=Complete IndependenceSCALE: Activities may be completed with or without assistive devices. 8-Iuldnadglt-qllllyb completes the activity by him/herself with no assistance from a helper. 5-Set-up or Clean-up Assistance-helper sets up or cleans up; patient completes activity. [place] assists only prior to or following the activity. 4-Supervision or Touching Assistance-helper provides verbal cues and/or touching/steadying and/or contact guard assistance as patient completes activity. Assistance may be provided throughout the activity or intermittently. 3-Partial/Moderate Assistance-helper does LESS THAN HALF the effort. [place] li fts, holds or supports trunk or limbs, but provides less than half the effort. 2-Substantial/Maximal Assistance-helper does MORE THAN HALF the effort. [place] lifts or holds trunk or limbs and provides more than half the effort. 3-Nvdkxqhfq-ecleij does ALL the effort. Patient does none of the effort to complete the activity. Or, the assistance of 2 or more helpers is required for the patient to complete the activity. If activity was not attempted, code reason: 7-Patient Refused. 9-Not Applicable-not attempted and the patient did not perform the activity before the current illness, exacerbation or injury. 10-Not Attempted due to Environmental Limitations-(lack of equipment, weather restraints, etc.). 88-Not Attempted due to Medical Conditions or Safety Concerns. Roll Left to Right (QC): 2 Sit to Lying (QC): 1 (x 2) Sit to Stand (QC): 3 Chair/Tsw-pd-Fcplq Xfer(QC): 2 Car Transfer (QC): 88 Gait Training Does the Patient Walk?: Yes Distance: 15' x 2 Walk 10 feet (QC): 3 Walk 50 ft with 2 Turns(QC): 88 Walk 150 ft (QC): 88 Walking 10ft/uneven surface-QC: 88 Gait Persons Needed: 2 Gait Assistive Device: Parallel Bars Wheelchair Training Does the Pt Use a Wheelchair?: Yes Distance: 50'x2 Wheel 50 ft with 2 turns (QC): 2 Wheel 150 ft (QC): 88 Type of Wheelchair: Manual Stair Training 1 Step (curb) (QC): 88 4 Steps (QC): 88 12 Steps (QC): 88 Balance Picking up an Object (QC): 88 ADL-Treatment Eating (QC): 5 Oral Hygiene (QC): 6 Bathing Location: L Arm, R Arm, L Upper Leg, R Upper Leg, Chest, Abdomen Shower/Bathe Self (QC): 3 (Mod A) Upper Body Dressing (QC): 5 Lower Body Dressing (QC): 2 On/Off Footwear (QC): 1 Toileting Hygiene (QC): 1 Assessment/Plan Assessment and Plan Assess & Plan/Chief Complaint Assessment: S/p subtotal colectomy w/ileorectal anastamosis POD #16 Small bowel obstruction- Found on Xray (01-01-2022)- Resolved Hypokalemia Colon cancer T2DM HTN Dementia TBI at 22yo Plan: PT OT Monitor pain Monitor loose stools Monitor delirium 01/09/2022: Imodium Monitor cognitive changes (1) Generalized weakness Status: Acute (2) Colon cancer (3) GI bleed (4) Edema (5) Diabetes (6) Dementia Status: Acute JAMES BOWDEN DO Jan 08, 2022 11:45
--- NOTE | 2022-01-08 11:46 | Individualized Plan of Care ---
Individualized Plan of Care Rehab Nursing IPOC Order Admission Date Jan 07, 2022 at 09:25 Current Orders Orders Admission Arrival Bed Request (01/07/22 09:38) Code/Resuscitation (01/07/22 09:58) Accucheck Achs ACHS (01/07/22 09:58) Incentive Spirometry (Nursing) Q2H (01/07/22 09:58) Initiate Admission Nursing Pro .admission (01/07/22 09:58) Oxygen-Administer (01/07/22 09:58) Albuterol/Ipra Inhalation Soln (Duoneb I (01/07/22 10:00) Cholestyramine Lite Powder (Questran Lit (01/07/22 13:00) Enoxaparin Injection (Lovenox Injection) (01/07/22 10:00) Hydrocodone/Apap 5/325 Tablet (Lortab 5 (01/07/22 10:00) Haloperidol Injection (Haldol Injectio (01/07/22 10:00) Nitroglycerin Ointment (Nitrobid Ointme (01/07/22 10:00) Pantoprazole Tablet (Protonix Tablet) (01/08/22 07:00) Patch Removal (Patch Removal) (01/07/22 10:00) Phenol Throat [place] (Chloraseptic [place]) (01/07/22 10:00) Clonidine Patch (Catapres Patch) (01/14/22 09:00) Insulin Aspart (Novolog) (Novolog (Charg (01/07/22 11:00) Consult General Surgery (01/07/22 09:58) Incentive Spirometry Initial (01/07/22 09:58) Svn Small Volume Nebulizer (01/07/22 09:58) Incentive Spirometry (Nursing) Q2H (01/07/22 09:58) Admission Order(Inpt,Obs,Sdc) (01/07/22 09:58) Vital Signs: Per Unit Policy ( 08,16,00 (01/07/22 09:58) Abdi Hose (01/07/22 09:58) Sequential Compression Device (01/07/22 09:58) Senior Group Manager-Inpt Rehab Con (01/07/22 09:58) Rehab Nursing Orders-Ipoc (01/07/22 09:58) Physical Therapy Rehab Orders (01/07/22 09:58) Occupational Therapy Rehab Ord (01/07/22 09:58) Speech Therapy Rehab Orders (01/07/22 09:58) Cbc With Automated Diff (01/08/22 06:00) Comprehensive Metabolic Panel (01/08/22 06:00) Precautions (Aru) (01/07/22 09:58) Weekly Weight WEEK (01/07/22 09:58) Rehab-Intensity Of Therapy (01/07/22 09:58) Initiate Admission Nursing Pro .admission (01/07/22 09:58) Alprazolam Tablet (Xanax Tablet) (01/07/22 10:00) Calcium Carbonate Chew Tablet (Antacid C (01/07/22 10:00) Diphenhydramine Tablet (Benadryl Tablet) (01/07/22 10:00) Bisacodyl Suppository (Dulcolax Supposit (01/07/22 10:00) Lactulose Oral Solution (Enulose Oral So (01/07/22 10:00) Guaifenesin/Codeine Syrup (Robitussin Ac (01/07/22 10:00) Loperamide Tablet (Imodium Tablet) (01/07/22 10:00) Melatonin Tablet (Melatonin Tablet) (01/07/22 10:00) Polyethylene Glycol Powder Pkt (Miralax (01/07/22 21:00) Ondansetron Oral Dissolve Tab (Zofran (01/07/22 10:00) Acetaminophen Tablet/Caplet (Tylenol T (01/07/22 10:00) Initiate Admission Nursing Pro .admission (01/07/22 09:58) Patch Removal (Patch Removal) (01/14/22 08:59) Patient Visit (01/07/22 ) Treat. Speech/Lang/Voice (01/07/22 ) Speech Sound Lang Comp (01/07/22 ) Amlodipine Tablet (Norvasc Tablet) (01/07/22 13:15) Amlodipine Tablet (Norvasc Tablet) (01/07/22 21:00) Clonidine Tablet (Catapres Tablet) (01/07/22 13:15) Clonidine Tablet (Catapres Tablet) (01/07/22 13:15) Patient Visit (01/07/22 ) Pt Eval Moderate Complexity (01/07/22 ) Functional Activities, Ea 15 (01/07/22 ) Patient Visit (01/07/22 ) Functional Activities, Ea 15 (01/07/22 ) Olanzapine Orally Dissolve Tab (Zyprexa (01/07/22 21:00) Mat Initiate Protocol (01/08/22 08:11) Patient Visit (01/08/22 ) Treat. Speech/Lang/Voice (01/08/22 ) Patient Visit (01/08/22 ) Gait Training, Ea 15 Min (01/08/22 ) Functional Activities, Ea 15 (01/08/22 ) Exercise Therap, Ea 15 Min (01/08/22 ) General/Regular (01/08/22 Dinner) Rehab Nursing Orders: Ongoing Assess. of Cognitive Status, Ongoing Assess. of Function Status, Bladder Management, Bladder Scan, Bladder Training, Bowel Management, Bowel Training, Disease Management & Educaiton, DVT Prophylaxis, Fall Prevention, Fluid/Electrolyte/Nutrition Mgmt, Infection Prevention, Medication Management & Education, Management of Risks & Complications, Management of Skin Intergrity, Nutrition Management, Pain Management, Patient/Family Support, Safety Management Intensity of Therapy to be met Patient to be seen: Min.3h per day/5 of 7d PT IPOC Problem List: Activity Tolerance, Functional Strength, Safety, Balance, Gait, Transfer, Bed Mobility, ROM Treatment Plan: Continue Plan of Care Bed Mobility, Education, Functional Activity Pat, Functional Strength, Group Therapy, Gait, Safety, Therapeutic Exercise, Transfers Treatment Duration: Jan 28, 2022 Frequency: At least 5 of 7 days/Wk (IRF) Estimated Hrs Per Day: 1.5 hours per day OT IPOC Problems: Decreased Activ Tolerance, Decreased Safety Aware, Decreased UE Strength, Impaired Cognition, Impaired Coordination, Impaired Self-Care Skills OT Treatment, Training and Edu: Yes Plan of Care: ADL Retraining, Caregiver Training, Cognitive Retraining, Functional Mobility, Group Exercise/Act as Ind, UE Funct Exercise/Act, UE Neuromus Re-Ed/Coord, W/C Management Training Treatment Duration: Jan 24, 2022 Frequency: At least 5 of 7 days/Wk (IRF) Estimated Hrs Per Day: 1.5 hours per day (60-75 minutes per day) ST IPOC Speech Therapy Treatment Plan: Continue Plan of Care Treatment Duration: Jan 15, 2022 Frequency: Modified Program (IRF) (Four to five times per week.) Estimated Hrs Per Day: .5 hour per day Senior Group Manager/Case Mgmt Senior Group Manager/Case Managemen: Discharge Planning Dietitian/Watch Crystal Edge Grinder Dietitian/Watch [place] Edge Grinder to monitor nutritional status and make changes and/or recommendations as needed and work with speech pathology on dietary upgrades as the occur. Physician IPOC Medical Issues being managed closely and that require the 24 hour availability of a physician: Recent subtotal colectomy for colon cancer and lengthy hospital course with acute care and swing bed will require close monitoring of vitals along with labs and nutrition due to high risk for decompensation with cognition variations Medical Issues: Bowel/Bladder Function, DVT Prophylaxis, Falls Precautions, Fluid/Electrolyte/Nutrition Balance, Infection Protection, Pain Management, Wound Care Brief Synthesis of Preadmission Screen, Post-Admission Evaluation, and Therapy Evaluations: PT OT will focus on regaining function with the use of AD in order to improve independence in order to decrease cellar pumper burden. Medical Prognosis: Fair Anticipated Length of Stay: 7 days JAMES BOWDEN DO Jan 08, 2022 11:46
[2022-01-08 12:08] LABS: BASOPHILS % (AUTO) 1 % (0-10); EOSINOPHILS # (AUTO) 0.2 10^3/uL (0.0-0.3); EOSINOPHILS % (AUTO) 4 % (0-10); HEMATOCRIT 29 % (35-52); HEMOGLOBIN 9.1 g/dL (11.5-16.0); LYMPHOCYTES # (AUTO) 1.3 10^3/uL (1.0-4.0); LYMPHOCYTES % (AUTO) 21 % (12-44); MEAN CORPUSCULAR HEMOGLOBIN 26 pg (25-34); MEAN CORPUSCULAR HGB CONC 31 g/dL (32-36); MEAN CORPUSCULAR VOLUME 84 fL (80-99); MEAN PLATELET VOLUME 8.7 fL (9.0-12.2); MONOCYTES # (AUTO) 0.3 10^3/uL (0.0-1.0); MONOCYTES % (AUTO) 5 % (0-12); NEUTROPHILS # (AUTO) 4.2 10^3/uL (1.8-7.8); NEUTROPHILS % (AUTO) 69 % (42-75); PLATELET COUNT 319 10^3/uL (130-400); WHITE BLOOD COUNT 6.1 10^3/uL (4.3-11.0)
[2022-01-08] MEDS: CHOLESTYRAMINE 4 GM (QUESTRAN LITE, PREVALITE) PKT PO SCH ×2 (13:30→21:17)
[2022-01-08 19:10] VITALS: BP 147/70
[2022-01-08] MEDS: OLANZapine 5 MG ODT (ZyPREXA ZYDIS) PO SCH (21:25)
[2022-01-09] MEDS: inSUlin ASPART (NovoLOG) 1 UNIT/0.01 ML (CHARGE PER UNIT) SC SCH ×4 (06:06→21:21)
[2022-01-09] MEDS: PANTOPRAZOLE 40 MG (PROTONIX) TAB PO SCH (06:08)
[2022-01-09 07:47] VITALS: BP 186/80
[2022-01-09] MEDS: HYDROcodone/APAP 5 MG/325 MG (LORTAB) TAB PO PRN (07:50)
[2022-01-09] MEDS: amLODIPine 5 MG (NORVASC) TAB PO SCH ×2 (07:50→20:26)
--- NOTE | 2022-01-09 08:30 | Occupational Ther Daily Note ---
OT Current Status-Daily Note Subjective Pt alert in recliner. Pt agrees to therapy. Pt states pain is a 4/10, nrsg brought pain meds. Co-treat with PT ([phone]), skills of 2 clinicians required to decrease fall risk and pain while completing functional tasks. PT focusing on ambulation and mobility while OT focusing on ADLs and functional mobility. Pt has demonstrated inconsistency when completing cognitive tasks during ADLs. Mental Status/Objective Patient Orientation: Person, Confused, Place, Time, Situation ADL-Treatment Pt independent in eating. Pt stands from recliner using FWW, min A. Pt refusal to attempt using AE for donning/doffing footware. Pt ambulates using FWW to bathroom, see PT note for ambulation and transfer progress. Pt anxious and refused to let go of FWW or grabbar to cleanse buttocks or don LB clothing. Pt max A in toilet hygiene. Pt transfers to , min A. Pt min A in oral care,required set up and multiple verbal cues for reminders on sequencing. Pt attempted to self propel WC to therapy gym, VALENTINE finished propelling due to arm fatigue. Pt walked in parallel bars once. Pt completed dynamic standing activity x2 with min A, to improve ability to complete toilet hygiene. Pt left with PT. All needs met. Therapy Code Descriptions/Definitions Functional [place] Measure: 0=Not Assessed/NA 4=Minimal Assistance 1=Total Assistance 5=Supervision or Setup 2=Maximal Assistance 6=Modified [place] 3=Moderate Assistance 7=Complete IndependenceSCALE: Activities may be completed with or without assistive devices. 2-Jfybfoikwh-ndiprun completes the activity by him/herself with no assistance from a helper. 5-Set-up or Clean-up Assistance-helper sets up or cleans up; patient completes activity. [place] assists only prior to or following the activity. 4-Supervision or Touching Assistance-helper provides verbal cues and/or touching/steadying and/or contact guard assistance as patient completes activity. Assistance may be provided throughout the activity or intermittently. 3-Partial/Moderate Assistance-helper does LESS THAN HALF the effort. [place] lifts, holds or supports trunk or limbs, but provides less than half the effort. 2-Substantial/Maximal Assistance-helper does MORE THAN HALF the effort. [place] lifts or holds trunk or limbs and provides more than half the effort. 2-Cbtymqhff-pmanyw does ALL the effort. Patient does none of the effort to complete the activity. Or, the assistance of 2 or more helpers is required for the patient to complete the activity. If activity was not attempted, code reason: 7-Patient Refused. 9-Not Applicable-not attempted and the patient did not perform the activity before the current illness, exacerbation or injury. 10-Not Attempted due to Environmental Limitations-(lack of equipment, weather restraints, etc.). 88-Not Attempted due to Medical Conditions or Safety Concerns. Eating (QC): 6 Oral Hygiene (QC): 3 (Min A) On/Off Footwear: 1 Toileting Hygiene (QC): 2 Toilet Transfer (QC): 2 (Mod A) OT Short Term Goals Short Term Goals Time Frame: Jan 17, 2022 Eatin Oral hygiene: 5 Toileting hygiene: 3 Shower/bathe self: 3 Upper body dressin Lower body dressin Putting on/taking off footwear: 2 OT Long-Term Goals Long-Term Goals Time Frame: Jan 24, 2022 Eating (QC): 5 Oral Hygiene (QC): 5 Toileting Hygiene (QC): 4 Shower/Bathe Self (QC): 4 Upper Body Dressing (QC): 3 (set-up for shirt, min assist for bra) Lower Body Dressing (QC): 3 On/Off Footwear (QC): 2 Additional Goals: 1-Demonstrate ADL Tasks, 2-Verbalize Understanding, 3- ImproveStrength/Pat 1=Demonstrate adherence to instructed precautions during ADL tasks. 2=Patient will verbalize/demonstrate understanding of assistive devices/modifications for ADL. 3=Patient will improve strength/tolerance for activity to enable patient to perform ADL's. OT Education/Plan Problem List/Assessment Assessment: Decreased Activ Tolerance, Decreased Safety Aware, Decreased UE Strength, Impaired Bed Mobility, Impaired Cognition, Impaired Coordination, Impaired Funct Balance, Impaired Self-Care Skills Discharge Recommendations Plan/Recommendations: Continue POC Treatment Plan/Plan of Care Patient would benefit from OT for education, treatment and training to promote independence in ADL's, mobility, safety and/or upper extremity function for ADL's. Plan of Care: ADL Retraining, Caregiver Training, Cognitive Retraining, Fun ctional Mobility, Group Exercise/Act as Ind, UE Funct Exercise/Act, UE Neuromus Re-Ed/Coord, W/C Management Training Treatment Duration: Jan 24, 2022 Frequency: At least 5 of 7 days/Wk (IRF) Estimated Hrs Per Day: 1.5 hours per day (60-75 minutes per day) Agreement: Yes Rehab Potential: Guarded Time/GCodes Start Time: 07:15 Stop Time: 08:30 Total Time Billed (hr/min): 75 Billed Treatment Time 1 visit ADL 2 (30 min) FA 3 (45 min) BLANCA MO Jan 09, 2022 08:30
--- NOTE | 2022-01-09 08:42 | Physical Therapy Daily Note ---
PT Daily Note-Current Subjective Pt. agrees to Rx but c/o during TRF sit to stand and during stance of pain in bilat knees. Pt. does not understand/comprehend the pain scale and always responds "4" when asked to rate pain on 0-10 scale. Pt. asks multiple times during stance and gait and TRFs to sit down. Pain Numeric Pain Scale: 7 (per visual analog scale) Location: Left (and right Knee) Location Body Site: Knee Pain Description: Stabbing Comment: pt. cocnsistently c/o intense pain in stance and TRF but always rates pain Appearance pt. does not comprehend pain scale and always answers "4" . Per visual analog scale pts pain rates 7. Mental Status Patient Orientation: Person pt. does not know the date or day or the facility name shara asked Transfers SCALE: Activities may be completed with or without assistive devices. 4-Yklundzgmr-xgwfjkg completes the activity by him/herself with no assistance from a helper. 5-Set-up or Clean-up Assistance-helper sets up or cleans up; patient completes activity. [place] assists only prior to or following the activity. 4-Supervision or Touching Assistance-helper provides verbal cues and/or touching/steadying and/or contact guard assistance as patient completes activity. Assistance may be provided throughout the activity or intermittently. 3-Partial/Moderate Assistance-helper does LESS THAN HALF the effort. [place] lifts, holds or supports trunk or limbs, but provides less than half the effort. 2-Substantial/Maximal Assistance-helper does MORE THAN HALF the effort. [place] lifts or holds trunk or limbs and provides more than half the effort. 6-Afihvknuq-yslsxn does ALL the effort. Patient does none of the effort to complete the activity. Or, the assistance of 2 or more helpers is required for the patient to complete the activity. If activity was not attempted, code reason: 7-Patient Refused. 9-Not Applicable-not attempted and the patient did not perform the activity before the current illness, exacerbation or injury. 10-Not Attempted due to Environmental Limitations-(lack of equipment, weather restraints, etc.). 88-Not Attempted due to Medical Conditions or Safety Concerns. Sit to Stand (QC): 3 Chair/Hzw-ww-Pmkvz Xfer(QC): 3 Toilet Transfer (QC): 3 mod to max assist of 1-2 for all sit to stand TRFs Gait Training Does the Patient Walk?: Yes Walk 10 feet (QC): 3 Gait Assistive Device: FWW shorter walker obtained to assist with better UE leverage, pts gait nonfunctional and requires mod assist of 2 for stability and w/c f/u. pts moans, grimaced face, knees melting into flexion , poor flexed posture, obvious pain, 12 ft to bthrm to toilet, gait improved in // bars 8 ft x 2 w/c close behind. , at min assist, fear also plays a great roll in pts gait limitations as she states that she has fallen many many times Wheelchair Training Does the Pt Use a Wheelchair?: Yes Type of Wheelchair: Manual 12 ft x 2 mod assist and repeated instructions as pt. does not retain training from previous day for any part of w/c ,TRFs ot gait Exercises Supine Ex: Ankle pumps, Quad Set, Glut sets Supine Reps: 12 Seated Therapy Exercises: Sit to stand, Long arc quads, Hip flexion Seated Reps: 12 Treatments co Rx PT OT secondary to level of complexity, pts confusion, and vulnerability requiring 2 skilled clinicians, TRFs, gait, toileting, ex, reaching activities in stance at // bars for cones, w/c mob. in recliner after Rx in near zero grav position, francois at hand, Voltaren cream requested for bilat knees Assessment Current Status: Poor Progress limited by pain, confusion and fear, no real progress noted for funct mob PT Short Term Goals Short Term Goals Time Frame: Jan 14, 2022 Roll Left & Right: 3 (Fawad) Sit to lyin (Fawad) Lying to sitting on side of be: 3 (Fawad) Sit to stand: 3 (Fawad) Chair/jbu-gp-mphux transfer: 4 (CGA) Walk 10 feet: 4 (CGA) PT Truck And Transport Mechanic Goals Truck And Transport Mechanic Goals PT Truck And Transport Mechanic Goals Time Frame: Jan 28, 2022 Roll Left & Right (QC): 4 (SBA) Sit to Lying (QC): 4 (SBA) Lying-Sitting on Side/Bed(QC): 4 (SBA) Sit to Stand (QC): 4 (CGA) Chair/Llm-yt-Tagcv Xfer(QC): 4 (SBA) Toilet Transfer (QC): 4 (SBA) Car Transfer (QC): 4 (CGA) Does the Patient Walk: Yes Walk 10 feet (QC): 4 (SBA) Walk 50ft with 2 Turns (QC): 4 (SBA) Walk 150 ft (QC): 4 (SBA) Walking 10ft on Uneven Surface: 4 (CGA) 1 Step (curb) (QC): 4 (CGA) 4 Steps (QC): 4 (CGA) 12 Steps (QC): 88 Picking up an Object (QC): 4 (CGA) Wheel 50 feet with 2 turns (QC: 9 Wheel 150 feet: 9 PT Plan Treatment/Plan Treatment Plan: Continue Plan of Care Treatment Plan: Bed Mobility, Education, Functional Activity Pat, Functional Strength, Group Therapy, Gait, Safety, Therapeutic Exercise, Transfers Treatment Duration: Jan 28, 2022 Frequency: At least 5 of 7 days/Wk (IRF) Estimated Hrs Per Day: 1.5 hours per day Patient and/or Family Agrees t: Yes Safety Risks/Education Patient Education: Gait Training, Transfer Techniques, Correct Positioning, W/C Management, Disease Process, Safety Issues Teaching Recipient: Patient Teaching Methods: Demonstration, Discussion Response to Teaching: Unable to Comprehend, Reinforcement Needed Time/GCodes Time In: 730 Time Out: 845 Total Billed Treatment Time: 75 Total Billed Treatment 1,GT20m,EX15m,FA40m SCOTTIE MANCERA PTA Jan 09, 2022 08:42
--- NOTE | 2022-01-09 09:30 | Speech Therapy Daily Note ---
Speech Daily Progress Note Subjective Date Seen by Provider: Jan 09, 2022 Time Seen by Provider: 09:00 The patient was lying in recliner, awake and alert upon entrance to her room by the clinician. The patient greeted the clinician and was agreeable to participation in the cognitive linguistic treatment session. Objective The patient independently recalled a conversation with information from the prior date regarding a specific team and the time the team will play on this date. The patient was unable to recall the second team, therefore, the clinician provided the information to the patient. The patient was unable to recall the second team following a five minute delay regardless of clinician verbal cueing. The patient's journal was discussed and practiced on this date. The patient was encouraged to record the date and the events of the day in her journal to aid in recall throughout the day. Orientation strategies were discussed and reviewed on this date. The patient is knowledgeable on the month and date as today is her anniversary. The patient was unable to locate the day of the week on the in-room white board, however, she did immediately direct her gaze to the white board in attempts to find the information. The white board was discussed and practiced on this date. The patient denied confusion, however, reported she is currently in "[place]." The clinician provided verbal cues (moderate) and the patient stated, "It starts with a P, [place]." The location was written on the in-room white board for frequent retrieval throughout the day by the patient. Assessment Assessment Current Status: Fair Progress Treatment Plan Continue Plan of Care Speech Short Term Goals Short Term Goals Short Term Goals 1. The patient will demonstrate accurate orientation over the span of three occasions with 100% accuracy, independently. Time Frame-STG: Three Days. Speech Wellness Assistant Goals Wellness Assistant Goals 1. The patient will demonstrate improved cognitive linguistic function for safe discharge to the least restrictive environment. Speech-Plan Treatment Plan Speech Therapy Treatment Plan: Continue Plan of Care Treatment Duration: Jan 15, 2022 Frequency: Modified Program (IRF) (Four to five times per week.) Estimated Hrs Per Day: .5 hour per day Rehab Potential: Guarded Safety Risks/Education Teaching Recipient: Patient Teaching Methods: Demonstration, Discussion Response to Teaching: Verbalize Understanding, Return Demonstration, Reinforcement Needed Education Topics Provided: Orientation Strategies, External Memory Strategies Time Speech Therapy Time In: 09:00 Speech Therapy Time Out: 09:30 Total Billed Time: 30 Billed Treatment Time , RHIANNA Fink Jan 09, 2022 09:30
[2022-01-09 09:40] VITALS: BP 137/74
[2022-01-09] MEDS: polyethylene glycoL POWDER 17 GM (MIRALAX) PACK PO SCH ×2 (09:43→19:47)
[2022-01-09] MEDS: ENOXAPARIN 40 MG/0.4 ML (LOVENOX) SYR SC SCH (10:07)
--- NOTE | 2022-01-09 10:42 | PM&R Progress Note ---
Subjective HPI/CC On Admission Date Seen by Provider: Jan 09, 2022 Time Seen by Provider: 10:00 Subjective/Events-last exam 01/09/2022: Doing well Ultram started for the pain No falls Improved cognition 01/09/2022: Patient doing better Pain improved No falls Cognition is labile visits often Review of Systems General: Fatigue, Malaise Neurological: Confusion Objective Exam Vital Signs Vital Signs Date Time Temp Pulse Resp B/P (MAP) Pulse Ox O2 Delivery O2 Flow Rate FiO2 01/09/22 21:37 Room Air 01/09/22 20:51 36.8 102 24 179/72 (107) 95 01/09/22 09:00 0.00 01/08/22 08:11 21 Capillary Refill : General Appearance: No Apparent Distress, Chronically ill, Obese HEENT: PERRL/EOMI, Normal ENT Inspection Neck: Normal Inspection, Non Tender, Supple Respiratory: Chest Non Tender, Lungs Clear, Normal Breath Sounds, No Accessory Muscle Use, No Respiratory Distress Cardiovascular: Regular Rate, Rhythm, No Edema, No Gallop, No JVD Gastrointestinal: Normal Bowel Sounds, No Organomegaly, No Pulsatile Mass, Non Tender, Soft Back: Normal Inspection, No CVA Tenderness, No Vertebral Tenderness Extremity: Normal Inspection, Non Tender Neurologic/Psychiatric: Alert, Oriented x3, story editor II-XII Norm as Tested, Depressed Affect, Disoriented Skin: Normal Color, Warm/Dry Lymphatic: No Adenopathy Results/Procedures Lab Patient resulted labs reviewed. FIM Transfers Therapy Code Descriptions/Definitions Functional [place] Measure: 0=Not Assessed/NA 4=Minimal Assistance 1=Total Assistance 5=Supervision or Setup 2=Maximal Assistance 6=Modified [place] 3=Moderate Assistance 7=Complete IndependenceSCALE: Activities may be completed with or without assistive devices. 5-Wdrwvfuofq-ordezwn completes the activity by him/herself with no assistance from a helper. 5-Set-up or Clean-up Assistance-helper sets up or cleans up; patient completes activity. [place] assists only prior to or following the activity. 4-Supervision or Touching Assistance-helper provides verbal cues and/or touching/steadying and/or contact guard assistance as patient completes activity. Assistance may be provided throughout the activity or intermittently. 3-Partial/Moderate Assistance-helper does LESS THAN HALF the effort. [place] lifts, holds or supports trunk or limbs, but provides less than half the effort. 2-Substantial/Maximal Assistance-helper does MORE THAN HALF the effort. [place] lifts or holds trunk or limbs and provides more than half the effort. 6-Fcoowwjdf-ptnhjd does ALL the effort. Patient does none of the effort to complete the activity. Or, the assistance of 2 or more helpers is required for the patient to complete the activity. If activity was not attempted, code reason: 7-Patient Refused. 9-Not Applicable-not attempted and the patient did not perform the activity before the current illness, exacerbation or injury. 10-Not Attempted due to Environmental Limitations-(lack of equipment, weather restraints, etc.). 88-Not Attempted due to Medical Conditions or Safety Concerns. Roll Left to Right (QC): 2 Sit to Lying (QC): 1 (x 2) Sit to Stand (QC): 3 Chair/Wzu-yu-Ilume Xfer(QC): 3 Car Transfer (QC): 88 Gait Training Does the Patient Walk?: Yes Distance: 15' x 2 Walk 10 feet (QC): 3 Walk 50 ft with 2 Turns(QC): 88 Walk 150 ft (QC): 88 Walking 10ft/uneven surface-QC: 88 Gait Persons Needed: 2 Gait Assistive Device: FWW Wheelchair Training Does the Pt Use a Wheelchair?: Yes Distance: 50'x2 Wheel 50 ft with 2 turns (QC): 2 Wheel 150 ft (QC): 88 Type of Wheelchair: Manual Stair Training 1 Step (curb) (QC): 88 4 Steps (QC): 88 12 Steps (QC): 88 Balance Picking up an Object (QC): 88 ADL-Treatment Eating (QC): 6 Oral Hygiene (QC): 3 (Min A) Bathing Location: L Arm, R Arm, L Upper Leg, R Upper Leg, Chest, Abdomen Shower/Bathe Self (QC): 3 (Mod A) Upper Body Dressing (QC): 5 Lower Body Dressing (QC): 2 On/Off Footwear (QC): 1 Toileting Hygiene (QC): 2 Toilet Transfer (QC): 2 (Mod A) Assessment/Plan Assessment and Plan Assess & Plan/Chief Complaint Assessment: S/p subtotal colectomy w/ileorectal anastamosis POD #17 Small bowel obstruction- Found on Xray (01-01-2022)- Resolved Hypokalemia Colon cancer T2DM HTN Dementia TBI at 22yo Plan: PT OT Monitor pain Monitor loose stools Monitor delirium 01/08/2022: Imodium Monitor cognitive changes 01/09/2022: Imodium Ultram (1) Generalized weakness Status: Acute (2) Colon cancer (3) GI bleed (4) Edema (5) Diabetes (6) Dementia Status: Acute JAMES BOWDEN DO Jan 09, 2022 10:42
[2022-01-09] MEDS: CHOLESTYRAMINE 4 GM (QUESTRAN LITE, PREVALITE) PKT PO SCH ×2 (13:32→20:26)
[2022-01-09] MEDS: OLANZapine 5 MG ODT (ZyPREXA ZYDIS) PO SCH (20:26)
[2022-01-09] MEDS: LOPERAMIDE 2 MG (IMODIUM) TABLET PO PRN ×2 (20:50→21:22)
[2022-01-09 20:51] VITALS: BP 179/72
[2022-01-10] MEDS: inSUlin ASPART (NovoLOG) 1 UNIT/0.01 ML (CHARGE PER UNIT) SC SCH ×4 (05:47→21:07)
[2022-01-10] MEDS: PANTOPRAZOLE 40 MG (PROTONIX) TAB PO SCH (05:48)
[2022-01-10 07:36] VITALS: BP 169/73
[2022-01-10] MEDS: amLODIPine 5 MG (NORVASC) TAB PO SCH ×2 (08:21→21:50)
[2022-01-10] MEDS: polyethylene glycoL POWDER 17 GM (MIRALAX) PACK PO SCH ×2 (08:21→21:12)
--- NOTE | 2022-01-10 09:57 | Physical Therapy Daily Note ---
PT Daily Note-Current Subjective Pt up in recliner, reluctantly agrees to Rx. States she is just not doing well. confused, at attempts at sit to stand pt stopped giving effort x 3 trials and required 2 assist and c/o pain in knees, At bed sit to sup pt c/o extreme dizziness , screaming and stated she was spinning. Pain Numeric Pain Scale: 5-Moderate Pain Location: Left (and right knee) Location Body Site: Knee Pain Description: Pressure Section J - Health Conditions 1. Rarely or not at all 2. Occasionally 3. Frequently 4. Almost constantly 8. Unable to answer Pain Effect on Sleep: 0 Pain Interference with Therapy: 4 Pain Interference w/Day-to-Day: 4 Mental Status Patient Orientation: Confused Transfers SCALE: Activities may be completed with or without assistive devices. 2-Vltwhwxksg-itoboly completes the activity by him/herself with no assistance fr om a helper. 5-Set-up or Clean-up Assistance-helper sets up or cleans up; patient completes activity. [place] assists only prior to or following the activity. 4-Supervision or Touching Assistance-helper provides verbal cues and/or touching/steadying and/or contact guard assistance as patient completes activity. Assistance may be provided throughout the activity or intermittently. 3-Partial/Moderate Assistance-helper does LESS THAN HALF the effort. [place] lifts, holds or supports trunk or limbs, but provides less than half the effort. 2-Substantial/Maximal Assistance-helper does MORE THAN HALF the effort. [place] lifts or holds trunk or limbs and provides more than half the effort. 5-Bbisseyto-yrdhzm does ALL the effort. Patient does none of the effort to complete the activity. Or, the assistance of 2 or more helpers is required for the patient to complete the activity. If activity was not attempted, code reason: 7-Patient Refused. 9-Not Applicable-not attempted and the patient did not perform the activity before the current illness, exacerbation or injury. 10-Not Attempted due to Environmental Limitations-(lack of equipment, weather restraints, etc.). 88-Not Attempted due to Medical Conditions or Safety Concerns. Roll Left & Right (QC): 2 Sit to Lying (QC): 2 Sit to Stand (QC): 2 Chair/Hgt-uz-Acqeq Xfer(QC): 3 pt. attempted sit to stand from recliner x 3 with pt. unable to complete, assist of 2 needed for sit to stand and sit to sup with immediate c/o extreme dizziness and spinning which did not subside for approx 2 min. Gait Training Does the Patient Walk?: Yes Gait Assistive Device: FWW 6-7 ft recliner to bed instruction for every step, and keisha for turns, mod assist for stability Exercises Supine Ex: Ankle pumps, Quad Set, Rolling, Heel Slides, Hip abd/add Supine Reps: 12 Seated Therapy Exercises: Ankle pumps, Long arc quads, Hip flexion, Hip abd/add Seated Reps: 12 Treatments pt. with increased debility and confusion this date, initially states she needs to use BSC but when brought to her to use she states she does not need it. sup and seated ex, max asst TRFs, mod asst 2 short gait, max asst 2 bed TRFs and rolling, BP /79 HRE 107, Sats 94%, sup BP 185/79, HR 107. sats 92% , after resting pt. BP 162/70 nursing advised of findings Assessment Current Status: Poor Progress dependent for all mob, more confused. c/o extreme dizziness and spinning, nurse advised PT Short Term Goals Short Term Goals Time Frame: Jan 14, 2022 Roll Left & Right: 3 (Fawad) Sit to lyin (Fawad) Lying to sitting on side of be: 3 (Fawad) Sit to stand: 3 (Fawad) Chair/nyd-ez-sfjlz transfer: 4 (CGA) Walk 10 feet: 4 (CGA) PT Mechanical Artist Goals Jail Goals PT Jail Goals Time Frame: Jan 28, 2022 Roll Left & Right (QC): 4 (SBA) Sit to Lying (QC): 4 (SBA) Lying-Sitting on Side/Bed(QC): 4 (SBA) Sit to Stand (QC): 4 (CGA) Chair/Nln-fa-Clhhh Xfer(QC): 4 (SBA) Toilet Transfer (QC): 4 (SBA) Car Transfer (QC): 4 (CGA) Does the Patient Walk: Yes Walk 10 feet (QC): 4 (SBA) Walk 50ft with 2 Turns (QC): 4 (SBA) Walk 150 ft (QC): 4 (SBA) Walking 10ft on Uneven Surface: 4 (CGA) 1 Step (curb) (QC): 4 (CGA) 4 Steps (QC): 4 (CGA) 12 Steps (QC): 88 Picking up an Object (QC): 4 (CGA) Wheel 50 feet with 2 turns (QC: 9 Wheel 150 feet: 9 PT Plan Treatment/Plan Treatment Plan: Continue Plan of Care Treatment Plan: Bed Mobility, Education, Functional Activity Pat, Functional Strength, Group Therapy, Gait, Safety, Therapeutic Exercise, Transfers Treatment Duration: Jan 28, 2022 Frequency: At least 5 of 7 days/Wk (IRF) Estimated Hrs Per Day: 1.5 hours per day Patient and/or Family Agrees t: Yes Safety Risks/Education Patient Education: Gait Training, Transfer Techniques, Correct Positioning, Safety Issues Teaching Recipient: Patient Teaching Methods: Discussion Response to Teaching: Unable to Return Demonstration, Unable to Comprehend, Reinforcement Needed Time/GCodes Time In: 900 Time Out: 1000 Total Billed Treatment Time: 60 Total Billed Treatment 1,EX30m,FA20m,GT10m SCOTTIE MANCERA AUTOMATION LEAD Jan 10, 2022 09:57
[2022-01-10] MEDS: ENOXAPARIN 40 MG/0.4 ML (LOVENOX) SYR SC SCH (10:22)
--- NOTE | 2022-01-10 10:45 | Occupational Ther Daily Note ---
OT Current Status-Daily Note Subjective Pt sitting on BSC. Pt agrees to therapy. No c/o pain at this time. Mental Status/Objective Patient Orientation: Person, Confused, Time, Situation Acute change in mental status: 1 Inattention: 2 Disorganized thinkin Altered level of consciousness: 2 (vigilant) ADL-Treatment Pt max A in toilet hygiene. Pt agrees to shower. Pt min A sit to stand from [facility] to with moderate encouragement and increase time to process task. Pt independent in oral care sitting at sink. Pt transferred from to shower bench using grabbars, min A. Pt educated on using AE to don socks. Pt attempted to use AE, after multiple verbal cues, max A in donning/doffing socks. Pt educated in using AE to doff LB clothing, pt required multiple verbal cues, pt mod A in doffing LB clothing. After set up pt able to doff/don UB clothing. Pt confused when entering the shower and required multiple verbal cues to remember how to turn on the water. . Pt struggled to remember task at hand and needed verbal cues to continue shower. Pt transferred from shower bench to , using grabbars, min A. Pt dependent donning LB clothing, due to fatigue after shower and refusal to use AE. Pt transferred from to recliner, mod A due to fatigue. Three times during session pt unaware of position in space attempted to sit in middle of transferring. Pt left in recliner with call light/phone in reach. All needs met in room. Therapy Code Descriptions/Definitions Functional [place] Measure: 0=Not Assessed/NA 4=Minimal Assistance 1=Total Assistance 5=Supervision or Setup 2=Maximal Assistance 6=Modified [place] 3=Moderate Assistance 7=Complete IndependenceSCALE: Activities may be completed with or without assistive devices. 3-Qulbdhfpxn-nwfbuja completes the activity by him/herself with no assistance from a helper. 5-Set-up or Clean-up Assistance-helper sets up or cleans up; patient completes activity. [place] assists only prior to or following the activity. 4-Supervision or Touching Assistance-helper provides verbal cues and/or touching/steadying and/or contact guard assistance as patient completes activity. Assistance may be provided throughout the activity or intermittently. 3-Partial/Moderate Assistance-helper does LESS THAN HALF the effort. [place] lifts, holds or supports trunk or limbs, but provides less than half the effort. 2-Substantial/Maximal Assistance-helper does MORE THAN HALF the effort. [place] lifts or holds trunk or limbs and provides more than half the effort. 2-Nghnnunpg-okfetz does ALL the effort. Patient does none of the effort to complete the activity. Or, the assistance of 2 or more helpers is required for the patient to complete the activity. If activity was not attempted, code reason: 7-Patient Refused. 9-Not Applicable-not attempted and the patient did not perform the activity before the current illness, exacerbation or injury. 10-Not Attempted due to Environmental Limitations-(lack of equipment, weather restraints, etc.). 88-Not Attempted due to Medical Conditions or Safety Concerns. Oral Hygiene (QC): 6 Bathing Location: L Arm, R Arm, L Upper Leg, R Upper Leg, L Lower Leg (including foot), R Lower Leg (including foot), Chest, Abdomen, Buttocks, Perineal Area Shower/Bathe Self (QC): 4 (Required verbal cues throughout task) Upper Body Dressing (QC): 5 Lower Body Dressing (QC): 2 (Max A ) On/Off Footwear: 1 Toileting Hygiene (QC): 2 (Max A) Other Treatment Pt completed 3 B UE exercises 3 sets 10 reps with light resistance theraband, to strengthen B UE for daily functional tasks. Skilled instruction given and demonstration throughout task. Education OT Patient Education: Exercise program, Use of adapted equipment Teaching Recipient: Patient Teaching Methods: Demonstration, Discussion Response to Teaching: Verbalize Understanding, Unable to Return Demonstration, Reinforcement Needed OT Short Term Goals Short Term Goals Time Frame: Jan 17, 2022 Eatin Oral hygiene: 5 Toileting hygiene: 3 Shower/bathe self: 3 Upper body dressin Lower body dressin Putting on/taking off footwear: 2 OT Driller Brake Lining Goals Shelter Goals Time Frame: Jan 24, 2022 Acute change in mental status: 1 Inattention: 0 Disorganized thinkin Altered level of consciousness: 0 Eating (QC): 5 Oral Hygiene (QC): 5 Toileting Hygiene (QC): 4 Shower/Bathe Self (QC): 4 Upper Body Dressing (QC): 3 (set-up for shirt, min assist for bra) Lower Body Dressing (QC): 3 On/Off Footwear (QC): 2 Additional Goals: 1-Demonstrate ADL Tasks, 2-Verbalize Understanding, 3- ImproveStrength/Pat 1=Demonstrate adherence to instructed precautions during ADL tasks. 2=Patient will verbalize/demonstrate understanding of assistive bessy alfred/modifications for ADL. 3=Patient will improve strength/tolerance for activity to enable patient to perform ADL's. OT Education/Plan Problem List/Assessment Assessment: Decreased Activ Tolerance, Decreased Safety Aware, Decreased UE Strength, Impaired Cognition, Impaired Coordination, Impaired Funct Balance, Impaired Self-Care Skills Discharge Recommendations Plan/Recommendations: Continue POC Treatment Plan/Plan of Care Patient would benefit from OT for education, treatment and training to promote independence in ADL's, mobility, safety and/or upper extremity function for ADL's. Plan of Care: ADL Retraining, Caregiver Training, Cognitive Retraining, Functional Mobility, Group Exercise/Act as Ind, UE Funct Exercise/Act, UE Neuromus Re-Ed/Coord, W/C Management Training Treatment Duration: Jan 24, 2022 Frequency: At least 5 of 7 days/Wk (IRF) Estimated Hrs Per Day: 1.5 hours per day (60-75 minutes per day) Agreement: Yes Rehab Potential: Guarded Time/GCodes Start Time: 10:30 Stop Time: 11:45 Total Time Billed (hr/min): 75 Billed Treatment Time 1 visit ADL 4 (60 min) EX 1 (15 min) BLANCA MO Jan 10, 2022 10:45
--- NOTE | 2022-01-10 11:21 | Speech Therapy Daily Note ---
Speech Daily Progress Note Subjective Date Seen by Provider: Jan 10, 2022 Time Seen by Provider: 08:30 The patient was seated upright in her recliner, awake and alert upon entrance to her room by the clinician. The patient greeted the clinician and was agreeable to participation in the cognitive linguistic treatment session. Objective The patient was confused on this date, stating immediately, "I'm lost. I'm just lost. Everyone is moving around out there. I don't know where I am at." The clinician provided empathetic support and re-orientation to the patient, who verbalized comprehension. Orientation information was provided to the patient, the patient's in-room white board was addressed and her memory journal with the date. The clinician asked the patient permission to place orientation information in her room. The patient agreed and orientation information was posted on a pink sheet near her bathroom, directly in line with the patient's eye gaze. The patient reported discomfort in her right eye. The RN was notified who was aware from the patient reporting the discomfort earlier in the morning. Assessment Assessment Current Status: Poor Progress Treatment Plan Continue Plan of Care Speech Short Term Goals Short Term Goals Short Term Goals 1. The patient will demonstrate accurate orientation over the span of three occasions with 100% accuracy, independently. Time Frame-STG: Three Days. Speech Jacquard Lace Weaver Goals Senior Living Goals 1. The patient will demonstrate improved cognitive linguistic function for safe discharge to the least restrictive environment. Speech-Plan Treatment Plan Speech Therapy Treatment Plan: Continue Plan of Care Treatment Duration: Jan 15, 2022 Frequency: Modified Program (IRF) (Four to five times per week.) Estimated Hrs Per Day: .5 hour per day Rehab Potential: Guarded Safety Risks/Education Teaching Recipient: Patient Teaching Methods: Discussion Response to Teaching: Reinforcement Needed Education Topics Provided: Orientation Strategies Time Speech Therapy Time In: 08:30 Speech Therapy Time Out: 09:00 Total Billed Time: 30 Billed Treatment Time 1NANCY ELIZABETH ST Jan 10, 2022 11:21
[2022-01-10] MEDS: LOPERAMIDE 2 MG (IMODIUM) TABLET PO SCH ×4 (12:04→21:50)
[2022-01-10] MEDS: CHOLESTYRAMINE 4 GM (QUESTRAN LITE, PREVALITE) PKT PO SCH ×3 (12:06→19:54)
--- NOTE | 2022-01-10 12:30 | PM&R Progress Note ---
Subjective HPI/CC On Admission Date Seen by Provider: Jan 10, 2022 Time Seen by Provider: 11:30 Subjective/Events-last exam 01/10/2022: Doing about the same Weakness noted by therapy Confusion is labile No falls 01/09/2022: Doing well Ultram started for the pain No falls Improved cognition 01/09/2022: Patient doing better Pain improved No falls Cognition is labile visits often Review of Systems General: Fatigue, Malaise Neurological: Confusion Objective Exam Vital Signs Vital Signs Date Time Temp Pulse Resp B/P (MAP) Pulse Ox O2 Delivery O2 Flow Rate FiO2 01/10/22 21:10 Room Air 01/10/22 20:11 36.4 100 20 146/74 (98) 96 01/09/22 09:00 0.00 01/08/22 08:11 21 Capillary Refill : General Appearance: No Apparent Distress, Chronically ill, Obese HEENT: PERRL/EOMI, Normal ENT Inspection Neck: Normal Inspection, Non Tender, Supple Respiratory: Chest Non Tender, Lungs Clear, Normal Breath Sounds, No Accessory Muscle Use, No Respiratory Distress Cardiovascular: Regular Rate, Rhythm, No Edema, No Gallop, No JVD Gastrointestinal: Normal Bowel Sounds, No Organomegaly, No Pulsatile Mass, Non Tender, Soft Back: Normal Inspection, No CVA Tenderness, No Vertebral Tenderness Extremity: Normal Inspection, Non Tender Neurologic/Psychiatric: Alert, Oriented x3, student services counselor II-XII Norm as Tested, Depressed Affect, Disoriented Skin: Normal Color, Warm/Dry Lymphatic: No Adenopathy Results/Procedures Lab Patient resulted labs reviewed. FIM Transfers Therapy Code Descriptions/Definitions Functional [place] Measure: 0=Not Assessed/NA 4=Minimal Assistance 1=Total Assistance 5=Supervision or Setup 2=Maximal Assistance 6=Modified [place] 3=Moderate Assistance 7=Complete IndependenceSCALE: Activities may be completed with or without assistive devices. 4-Vmwaqefget-lospybo completes the activity by him/herself with no assistance from a helper. 5-Set-up or Clean-up Assistance-helper sets up or cleans up; patient completes activity. [place] assists only prior to or following the activity. 4-Supervision or Touching Assistance-helper provides verbal cues and/or touching/steadying and/or contact guard assistance as patient completes activity. Assistance may be provided throughout the activity or intermittently. 3-Partial/Moderate Assistance-helper does LESS THAN HALF the effort. [place] lifts, holds or supports trunk or limbs, but provides less than half the effort. 2-Substantial/Maximal Assistance-helper does MORE THAN HALF the effort. [place] lifts or holds trunk or limbs and provides more than half the effort. 2-Wilerfrml-xnoqzl does ALL the effort. Patient does none of the effort to complete the activity. Or, the assistance of 2 or more helpers is required for the patient to complete the activity. If activity was not attempted, code reason: 7-Patient Refused. 9-Not Applicable-not attempted and the patient did not perform the activity before the current illness, exacerbation or injury. 10-Not Attempted due to Environmental Limitations-(lack of equipment, weather restraints, etc.). 88-Not Attempted due to Medical Conditions or Safety Concerns. Roll Left to Right (QC): 2 Sit to Lying (QC): 2 Sit to Stand (QC): 2 Chair/Dew-lz-Pwqbw Xfer(QC): 3 Car Transfer (QC): 88 Gait Training Does the Patient Walk?: Yes Distance: 15' x 2 Walk 10 feet (QC): 3 Walk 50 ft with 2 Turns(QC): 88 Walk 150 ft (QC): 88 Walking 10ft/uneven surface-QC: 88 Gait Persons Needed: 2 Gait Assistive Device: FWW Wheelchair Training Does the Pt Use a Wheelchair?: Yes Distance: 50'x2 Wheel 50 ft with 2 turns (QC): 2 Wheel 150 ft (QC): 88 Type of Wheelchair: Manual Stair Training 1 Step (curb) (QC): 88 4 Steps (QC): 88 12 Steps (QC): 88 Balance Picking up an Object (QC): 88 ADL-Treatment Eating (QC): 6 Oral Hygiene (QC): 3 (Min A) Bathing Location: L Arm, R Arm, L Upper Leg, R Upper Leg, Chest, Abdomen Shower/Bathe Self (QC): 3 (Mod A) Upper Body Dressing (QC): 5 Lower Body Dressing (QC): 2 On/Off Footwear (QC): 1 Toileting Hygiene (QC): 2 Toilet Transfer (QC): 2 (Mod A) Assessment/Plan Assessment and Plan Assess & Plan/Chief Complaint Assessment: S/p subtotal colectomy w/ileorectal anastamosis POD #18 Small bowel obstruction- Found on Xray (01-01-2022)- Resolved Hypokalemia Colon cancer T2DM HTN-OOC Dementia TBI at 22yo Plan: PT OT Monitor pain Monitor loose stools Monitor delirium 01/08/2022: Imodium Monitor cognitive changes 01/09/2022: Imodium Ultram 01/10/2022: Supportive care Expect labile confusion 01/10/2022: Restart DM med home dosing Monitor elevated BP (1) Generalized weakness Status: Acute (2) Colon cancer (3) GI bleed (4) Edema (5) Diabetes (6) Dementia Status: Acute JAMES BOWDEN DO Jan 10, 2022 12:30
--- NOTE | 2022-01-10 13:40 | Physical Therapy Daily Note ---
PT Daily Note-Current Subjective Pt. on BS, nursing in room, just got seated. Pt. confused and asks where all the kids are and why they arent in here. Pt. c/o weakness with attempts at sit to stand Pain Location: No Pain Reported Section J - Health Conditions 1. Rarely or not at all 2. Occasionally 3. Frequently 4. Almost constantly 8. Unable to answer Pain Effect on Sleep: 0 Pain Interference with Therapy: 4 Pain Interference w/Day-to-Day: 4 Mental Status Patient Orientation: Confused Transfers SCALE: Activities may be completed with or without assistive devices. 4-Xkqrkyjxwd-lxzdcrb completes the activity by him/herself with no assistance from a helper. 5-Set-up or Clean-up Assistance-helper sets up or cleans up; patient completes activity. Dille assists only prior to or following the activity. 4-Supervision or Touching Assistance-helper provides verbal cues and/or touching/steadying and/or contact guard assistance as patient completes activity. Assistance may be provided throughout the activity or intermittently. 3-Partial/Moderate Assistance-helper does LESS THAN HALF the effort. Dille lifts, holds or supports trunk or limbs, but provides less than half the effort. 2-Substantial/Maximal Assistance-helper does MORE THAN HALF the effort. Dille lifts or holds trunk or limbs and provides more than half the effort. 3-Avpdxropv-ynextu does ALL the effort. Patient does none of the effort to complete the activity. Or, the assistance of 2 or more helpers is required for the patient to complete the activity. If activity was not attempted, code reason: 7-Patient Refused. 9-Not Applicable-not attempted and the patient did not perform the activity before the current illness, exacerbation or injury. 10-Not Attempted due to Environmental Limitations-(lack of equipment, weather restraints, etc.). 88-Not Attempted due to Medical Conditions or Safety Concerns. Sit to Stand (QC): 2 Chair/Agx-ok-Jnbar Xfer(QC): 3 Toilet Transfer (QC): 2 mod to max of 1 sit [place] [facility] [place]st 2 to hold pt stable while cleaning and pulling up brief and slacks Gait Training Does the Patient Walk?: Yes Gait Assistive Device: FWW approx 8 ft BSC to security associate FWW mod to min assist for stabilityad instruction keisha for turning to approach chair Exercises Seated Therapy Exercises: Ankle pumps, Sit to stand, Long arc quads Seated Reps: 8 Treatments toileting, sit to stands, short gait, Assessment Current Status: Poor Progress more confused, more difficulty following instruction, max to mod dependent for all mobility PT Short Term Goals Short Term Goals Time Frame: Jan 14, 2022 Roll Left & Right: 3 (Fawad) Sit to lyin (Fawad) Lying to sitting on side of be: 3 (Fawad) Sit to stand: 3 (Fawad) Chair/ine-vi-qablf transfer: 4 (CGA) Walk 10 feet: 4 (CGA) PT Hr Intern Goals Hr Intern Goals PT Hr Intern Goals Time Frame: Jan 28, 2022 Roll Left & Right (QC): 4 (SBA) Sit to Lying (QC): 4 (SBA) Lying-Sitting on Side/Bed(QC): 4 (SBA) Sit to Stand (QC): 4 (CGA) Chair/Qhj-ix-Wslyu Xfer(QC): 4 (SBA) Toilet Transfer (QC): 4 (SBA) Car Transfer (QC): 4 (CGA) Does the Patient Walk: Yes Walk 10 feet (QC): 4 (SBA) Walk 50ft with 2 Turns (QC): 4 (SBA) Walk 150 ft (QC): 4 (SBA) Walking 10ft on Uneven Surface: 4 (CGA) 1 Step (curb) (QC): 4 (CGA) 4 Steps (QC): 4 (CGA) 12 Steps (QC): 88 Picking up an Object (QC): 4 (CGA) Wheel 50 feet with 2 turns (QC: 9 Wheel 150 feet: 9 PT Plan Treatment/Plan Treatment Plan: Continue Plan of Care Treatment Plan: Bed Mobility, Education, Functional Activity Pat, Functional Strength, Group Therapy, Gait, Safety, Therapeutic Exercise, Transfers Treatment Duration: Jan 28, 2022 Frequency: At least 5 of 7 days/Wk (IRF) Estimated Hrs Per Day: 1.5 hours per day Patient and/or Family Agrees t: Yes Safety Risks/Education Patient Education: Gait Training, Transfer Techniques, Correct Positioning, Disease Process, Safety Issues Teaching Recipient: Patient Teaching Methods: Discussion Response to Teaching: Unable to Return Demonstration, Unable to Comprehend, Reinforcement Needed Time/GCodes Time In: 1245 Time Out: 1300 Total Billed Treatment Time: 15 Total Billed Treatment 1,FA15m SCOTTIE MANCERA RESIDENT SERVICES MANAGER Jan 10, 2022 13:40
[2022-01-10 20:11] VITALS: BP 146/74
[2022-01-10] MEDS ORDERED: OLANZapine 5 MG ODT (ZyPREXA ZYDIS) PO SCH (21:00)
[2022-01-11] MEDS: PANTOPRAZOLE 40 MG (PROTONIX) TAB PO SCH (06:55)
[2022-01-11] MEDS: inSUlin ASPART (NovoLOG) 1 UNIT/0.01 ML (CHARGE PER UNIT) SC SCH ×4 (06:55→21:06)
[2022-01-11 07:10] VITALS: BP 174/77
--- NOTE | 2022-01-11 07:10 | PM&R Progress Note ---
Subjective HPI/CC On Admission Date Seen by Provider: Jan 11, 2022 Time Seen by Provider: 11:00 Subjective/Events-last exam 01/11/2022: Doing well Improved cognition today Sleeps a lot DC Jessica since she refuses it Imodium scheduled QID is working well for her and it is safe 01/10/2022: Doing about the same Weakness noted by therapy Confusion is labile No falls 01/09/2022: Doing well Ultram started for the pain No falls Improved cognition 01/09/2022: Patient doing better Pain improved No falls Cognition is labile visits often Review of Systems General: Fatigue, Malaise Neurological: Confusion Objective Exam Vital Signs Vital Signs Date Time Temp Pulse Resp B/P (MAP) Pulse Ox O2 Delivery O2 Flow Rate FiO2 01/11/22 09:43 Room Air 01/11/22 07:10 36.7 102 18 174/77 (109) 94 01/09/22 09:00 0.00 01/08/22 08:11 21 Capillary Refill : General Appearance: No Apparent Distress, Chronically ill, Obese HEENT: PERRL/EOMI, Normal ENT Inspection Neck: Normal Inspection, Non Tender, Supple Respiratory: Chest Non Tender, Lungs Clear, Normal Breath Sounds, No Accessory Muscle Use, No Respiratory Distress Cardiovascular: Regular Rate, Rhythm, No Edema, No Gallop, No JVD Gastrointestinal: Normal Bowel Sounds, No Organomegaly, No Pulsatile Mass, Non Tender, Soft Back: Normal Inspection, No CVA Tenderness, No Vertebral Tenderness Extremity: Normal Inspection, Non Tender Neurologic/Psychiatric: Alert, Oriented x3, citrix engineer II-XII Norm as Tested, Depressed Affect, Disoriented Skin: Normal Color, Warm/Dry Lymphatic: No Adenopathy Results/Procedures Lab Patient resulted labs reviewed. FIM Transfers Therapy Code Descriptions/Definitions Functional [place] Measure: 0=Not Assessed/NA 4=Minimal Assistance 1=Total Assistance 5=Supervision or Setup 2=Maximal Assistance 6=Modified [place] 3=Moderate Assistance 7=Complete IndependenceSCALE: Activities may be completed with or without assistive devices. 8-Fuelukomjm-qkastae completes the activity by him/herself with no assistance from a helper. 5-Set-up or Clean-up Assistance-helper sets up or cleans up; patient completes activity. Allred assists only prior to or following the activity. 4-Supervision or Touching Assistance-helper provides verbal cues and/or touching/steadying and/or contact guard assistance as patient completes activity. Assistance may be provided throughout the activity or intermittently. 3-Partial/Moderate Assistance-helper does LESS THAN HALF the effort. Allred lifts, holds or supports trunk or limbs, but provides less than half the effort. 2-Substantial/Maximal Assistance-helper does MORE THAN HALF the effort. Allred lifts or holds trunk or limbs and provides more than half the effort. 5-Jequbvdyc-kdttpn does ALL the effort. Patient does none of the effort to complete the activity. Or, the assistance of 2 or more helpers is required for the patient to complete the activity. If activity was not attempted, code reason: 7-Patient Refused. 9-Not Applicable-not attempted and the patient did not perform the activity before the current illness, exacerbation or injury. 10-Not Attempted due to Environmental Limitations-(lack of equipment, weather restraints, etc.). 88-Not Attempted due to Medical Conditions or Safety Concerns. Roll Left to Right (QC): 2 Sit to Lying (QC): 2 Sit to Stand (QC): 2 Chair/Ofh-db-Dxnni Xfer(QC): 3 Car Transfer (QC): 88 Gait Training Does the Patient Walk?: Yes Distance: 15' x 2 Walk 10 feet (QC): 3 Walk 50 ft with 2 Turns(QC): 88 Walk 150 ft (QC): 88 Walking 10ft/uneven surface-QC: 88 Gait Persons Needed: 2 Gait Assistive Device: FWW Wheelchair Training Does the Pt Use a Wheelchair?: Yes Distance: 50'x2 Wheel 50 ft with 2 turns (QC): 2 Wheel 150 ft (QC): 88 Type of Wheelchair: Manual Stair Training 1 Step (curb) (QC): 88 4 Steps (QC): 88 12 Steps (QC): 88 Balance Picking up an Object (QC): 88 ADL-Treatment Eating (QC): 6 Oral Hygiene (QC): 6 Bathing Location: L Arm, R Arm, L Upper Leg, R Upper Leg, L Lower Leg (including foot), R Lower Leg (including foot), Chest, Abdomen, Buttocks, Perineal Area Shower/Bathe Self (QC): 4 (Required verbal cues throughout task) Upper Body Dressing (QC): 5 Lower Body Dressing (QC): 2 (Max A ) On/Off Footwear (QC): 1 Toileting Hygiene (QC): 2 (Max A) Toilet Transfer (QC): 2 (Mod A) Assessment/Plan Assessment and Plan Assess & Plan/Chief Complaint Assessment: S/p subtotal colectomy w/ileorectal anastamosis POD #20 Small bowel obstruction- Found on Xray (01-01-2022)- Resolved Hypokalemia Colon cancer T2DM HTN-OOC Dementia TBI at 22yo Plan: PT OT Monitor pain Monitor loose stools Monitor delirium 01/08/2022: Imodium Monitor cognitive changes 01/09/2022: Imodium Ultram 01/10/2022: Supportive care Expect labile confusion 01/10/2022: Restart DM med home dosing Monitor elevated BP 01/11/2022: DC Questran Increase BP meds with Hydralazine (1) Generalized weakness Status: Acute (2) Colon cancer (3) GI bleed (4) Edema (5) Diabetes (6) Dementia Status: Acute JAMES BOWDEN DO Jan 11, 2022 07:10
[2022-01-11] MEDS: GLIMEPIRIDE 1 MG (AMARYL) TAB PO SCH ×2 (08:00→17:01)
[2022-01-11] MEDS: lisINopril 20 MG (PRINIVIL) TABLET PO SCH (08:00)
[2022-01-11] MEDS: LOPERAMIDE 2 MG (IMODIUM) TABLET PO SCH ×4 (08:00→21:05)
[2022-01-11] MEDS: amLODIPine 5 MG (NORVASC) TAB PO SCH ×2 (08:00→21:05)
[2022-01-11] MEDS: metFORMIN 500 MG (GLUCOPHAGE) TAB PO SCH ×2 (08:00→17:01)
[2022-01-11] MEDS: MEMANTINE 10 MG (NAMENDA) TABLET PO SCH ×2 (08:00→21:05)
[2022-01-11] MEDS: polyethylene glycoL POWDER 17 GM (MIRALAX) PACK PO SCH ×2 (08:03→21:05)
[2022-01-11] MEDS: CHOLESTYRAMINE 4 GM (QUESTRAN LITE, PREVALITE) PKT PO SCH (09:39)
[2022-01-11] MEDS: ENOXAPARIN 40 MG/0.4 ML (LOVENOX) SYR SC SCH (09:43)
--- NOTE | 2022-01-11 09:53 | Physical Therapy Daily Note ---
PT Daily Note-Current Subjective Pt asleep in recliner upon arrival. Pt is very drowsy and difficult to keep awake. Pt reports not feeling well but cannot explain how. Pain Location: No Pain Reported Section J - Health Conditions 1. Rarely or not at all 2. Occasionally 3. Frequently 4. Almost constantly 8. Unable to answer Pain Effect on Sleep: 0 Pain Interference with Therapy: 4 Pain Interference w/Day-to-Day: 4 Mental Status Patient Orientation: Person, Confused Transfers SCALE: Activities may be completed with or without assistive devices. 5-Tnmxxotvrd-qlnmrzd completes the activity by him/herself with no assistance from a helper. 5-Set-up or Clean-up Assistance-helper sets up or cleans up; patient completes activity. Sod assists only prior to or following the activity. 4-Supervision or Touching Assistance-helper provides verbal cues and/or touching/steadying and/or contact guard assistance as patient completes activity. Assistance may be provided throughout the activity or intermittently. 3-Partial/Moderate Assistance-helper does LESS THAN HALF the effort. Sod lifts, holds or supports trunk or limbs, but provides less than half the effort. 2-Substantial/Maximal Assistance-helper does MORE THAN HALF the effort. Sod lifts or holds trunk or limbs and provides more than half the effort. 6-Kojrausfd-oxulfi does ALL the effort. Patient does none of the effort to complete the activity. Or, the assistance of 2 or more helpers is required for the patient to complete the activity. If activity was not attempted, code reason: 7-Patient Refused. 9-Not Applicable-not attempted and the patient did not perform the activity before the current illness, exacerbation or injury. 10-Not Attempted due to Environmental Limitations-(lack of equipment, weather restraints, etc.). 88-Not Attempted due to Medical Conditions or Safety Concerns. Exercises Supine Ex: Ankle pumps, Quad Set, Glut sets, Heel Slides Supine Reps: 10 Treatments OPTOMETRIST PRESIDENT/PRACTICE OWNER encourages pt to complete Supine & Seated EX. Pt completes limited Supine Ex and needs awaken several times during tx. Pt resting at end of tx. with all needs met, call light in hand. Assessment Current Status: Poor Progress Pt is difficult to keep awake, constantly falling asleep during tx. PT Short Term Goals Short Term Goals Time Frame: Jan 14, 2022 Roll Left & Right: 3 (Fawad) Sit to lyin (Fawad) Lying to sitting on side of be: 3 (Fawad) Sit to stand: 3 (Fawad) Chair/ena-ly-wykyp transfer: 4 (CGA) Walk 10 feet: 4 (CGA) PT Prison Goals Prison Goals PT Shirt Ironer Supervisor Goals Time Frame: Jan 28, 2022 Roll Left & Right (QC): 4 (SBA) Sit to Lying (QC): 4 (SBA) Lying-Sitting on Side/Bed(QC): 4 (SBA) Sit to Stand (QC): 4 (CGA) Chair/Wmg-gb-Dkpee Xfer(QC): 4 (SBA) Toilet Transfer (QC): 4 (SBA) Car Transfer (QC): 4 (CGA) Does the Patient Walk: Yes Walk 10 feet (QC): 4 (SBA) Walk 50ft with 2 Turns (QC): 4 (SBA) Walk 150 ft (QC): 4 (SBA) Walking 10ft on Uneven Surface: 4 (CGA) 1 Step (curb) (QC): 4 (CGA) 4 Steps (QC): 4 (CGA) 12 Steps (QC): 88 Picking up an Object (QC): 4 (CGA) Wheel 50 feet with 2 turns (QC: 9 Wheel 150 feet: 9 PT Plan Problem List Problem List: Activity Tolerance, Functional Strength Treatment/Plan Treatment Plan: Continue Plan of Care Treatment Plan: Bed Mobility, Education, Functional Activity Pat, Functional Strength, Group Therapy, Gait, Safety, Therapeutic Exercise, Transfers Treatment Duration: Jan 28, 2022 Frequency: At least 5 of 7 days/Wk (IRF) Estimated Hrs Per Day: 1.5 hours per day Patient and/or Family Agrees t: Yes Safety Risks/Education Patient Education: Correct Positioning Teaching Recipient: Patient Teaching Methods: Discussion Response to Teaching: Reinforcement Needed Time/GCodes Time In: 820 Time Out: 835 Total Billed Treatment Time: 15 Total Billed Treatment 1, EX (15m) OFELIA ALEXANDER OPTOMETRIST PRESIDENT/PRACTICE OWNER Jan 11, 2022 09:53
[2022-01-11 13:03] VITALS: BP 136/60
[2022-01-11] MEDS: hydrALAZINE (APRESOLINE) 25 MG TAB PO SCH ×2 (13:04→21:05)
[2022-01-11 20:00] VITALS: BP 152/68
[2022-01-11 20:07] VITALS: BP 174/77
[2022-01-12] MEDS: inSUlin ASPART (NovoLOG) 1 UNIT/0.01 ML (CHARGE PER UNIT) SC SCH ×4 (05:45→21:34)
[2022-01-12 07:06] VITALS: BP 155/79
--- NOTE | 2022-01-12 08:31 | PM&R Progress Note ---
Subjective HPI/CC On Admission Date Seen by Provider: Jan 12, 2022 Time Seen by Provider: 16:00 Subjective/Events-last exam 01/12/2022: Doing well Confusion at times Pain at times Imodium working well No other issues 01/11/2022: Doing well Improved cognition today Sleeps a lot DC Jessica since she refuses it Imodium scheduled QID is working well for her and it is safe 01/10/2022: Doing about the same Weakness noted by therapy Confusion is labile No falls 01/09/2022: Doing well Ultram started for the pain No falls Improved cognition 01/09/2022: Patient doing better Pain improved No falls Cognition is labile visits often Review of Systems General: Fatigue, Malaise Objective Exam Vital Signs Vital Signs Date Time Temp Pulse Resp B/P (MAP) Pulse Ox O2 Delivery O2 Flow Rate FiO2 01/13/22 02:13 90 Room Air 01/12/22 19:56 36.9 103 20 145/63 (90) 01/11/22 20:07 21 01/09/22 09:00 0.00 Capillary Refill : General Appearance: No Apparent Distress, Chronically ill, Obese HEENT: PERRL/EOMI, Normal ENT Inspection Neck: Normal Inspection, Non Tender, Supple Respiratory: Chest Non Tender, Lungs Clear, Normal Breath Sounds, No Accessory Muscle Use, No Respiratory Distress Cardiovascular: Regular Rate, Rhythm, No Edema, No Gallop, No JVD Gastrointestinal: Normal Bowel Sounds, No Organomegaly, No Pulsatile Mass, Non Tender, Soft Back: Normal Inspection, No CVA Tenderness, No Vertebral Tenderness Extremity: Normal Inspection, Non Tender Neurologic/Psychiatric: Alert, Oriented x3, preventive maintenance coordinator II-XII Norm as Tested, Depressed Affect, Disoriented Skin: Normal Color, Warm/Dry Lymphatic: No Adenopathy Results/Procedures Lab Patient resulted labs reviewed. FIM Transfers Therapy Code Descriptions/Definitions Functional [place] Measure: 0=Not Assessed/NA 4=Minimal Assistance 1=Total Assistance 5=Supervision or Setup 2=Maximal Assistance 6=Modified [place] 3=Moderate Assistance 7=Complete IndependenceSCALE: Activities may be completed with or without assistive devices. 7-Jvtcgaxvdy-msjiqyd completes the activity by him/herself with no assistance from a helper. 5-Set-up or Clean-up Assistance-helper sets up or cleans up; patient completes activity. Bennett assists only prior to or following the activity. 4-Supervision or Touching Assistance-helper provides verbal cues and/or touching/steadying and/or contact guard assistance as patient completes activity. Assistance may be provided throughout the activity or intermittently. 3-Partial/Moderate Assistance-helper does LESS THAN HALF the effort. Bennett lifts, holds or supports trunk or limbs, but provides less than half the effort. 2-Substantial/Maximal Assistance-helper does MORE THAN HALF the effort. Bennett lifts or holds trunk or limbs and provides more than half the effort. 9-Gheskjinu-mmmrol does ALL the effort. Patient does none of the effort to complete the activity. Or, the assistance of 2 or more helpers is required for the patient to complete the activity. If activity was not attempted, code reason: 7-Patient Refused. 9-Not Applicable-not attempted and the patient did not perform the activity before the current illness, exacerbation or injury. 10-Not Attempted due to Environmental Limitations-(lack of equipment, weather restraints, etc.). 88-Not Attempted due to Medical Conditions or Safety Concerns. Roll Left to Right (QC): 2 Sit to Lying (QC): 2 Sit to Stand (QC): 2 Chair/Web-mq-Jjyrv Xfer(QC): 3 Car Transfer (QC): 88 Gait Training Does the Patient Walk?: Yes Distance: 15' x 2 Walk 10 feet (QC): 3 Walk 50 ft with 2 Turns(QC): 88 Walk 150 ft (QC): 88 Walking 10ft/uneven surface-QC: 88 Gait Persons Needed: 2 Gait Assistive Device: FWW Wheelchair Training Does the Pt Use a Wheelchair?: Yes Distance: 50'x2 Wheel 50 ft with 2 turns (QC): 2 Wheel 150 ft (QC): 88 Type of Wheelchair: Manual Stair Training 1 Step (curb) (QC): 88 4 Steps (QC): 88 12 Steps (QC): 88 Balance Picking up an Object (QC): 88 ADL-Treatment Eating (QC): 6 Oral Hygiene (QC): 6 Bathing Location: L Arm, R Arm, L Upper Leg, R Upper Leg, L Lower Leg (including foot), R Lower Leg (including foot), Chest, Abdomen, Buttocks, Perineal Area Shower/Bathe Self (QC): 4 (Required verbal cues throughout task) Upper Body Dressing (QC): 5 Lower Body Dressing (QC): 2 (Max A ) On/Off Footwear (QC): 1 Toileting Hygiene (QC): 2 (Max A) Toilet Transfer (QC): 2 (Mod A) Assessment/Plan Assessment and Plan Assess & Plan/Chief Complaint Assessment: S/p subtotal colectomy w/ileorectal anastamosis POD #21 Small bowel obstruction- Found on Xray (01-01-2022)- Resolved Hypokalemia Colon cancer T2DM HTN-OOC Dementia TBI at 22yo Plan: PT OT Monitor pain Monitor loose stools Monitor delirium 01/08/2022: Imodium Monitor cognitive changes 01/09/2022: Imodium Ultram 01/10/2022: Supportive care Expect labile confusion 01/10/2022: Restart DM med home dosing Monitor elevated BP 01/11/2022: DC Questran Increase BP meds with Hydralazine 01/12/2022: Monitor closely (1) Generalized weakness Status: Acute (2) Colon cancer (3) GI bleed (4) Edema (5) Diabetes (6) Dementia Status: Acute JAMES BOWDEN DO Jan 12, 2022 08:31
[2022-01-12] MEDS: PANTOPRAZOLE 40 MG (PROTONIX) TAB PO SCH (09:25)
[2022-01-12] MEDS: MEMANTINE 10 MG (NAMENDA) TABLET PO SCH ×2 (09:25→20:16)
[2022-01-12] MEDS: GLIMEPIRIDE 1 MG (AMARYL) TAB PO SCH ×2 (09:25→18:07)
[2022-01-12] MEDS: metFORMIN 500 MG (GLUCOPHAGE) TAB PO SCH ×2 (09:26→18:07)
[2022-01-12] MEDS: amLODIPine 5 MG (NORVASC) TAB PO SCH ×2 (09:26→20:15)
[2022-01-12] MEDS: hydrALAZINE (APRESOLINE) 25 MG TAB PO SCH ×3 (09:26→20:15)
[2022-01-12] MEDS: lisINopril 20 MG (PRINIVIL) TABLET PO SCH (09:26)
[2022-01-12] MEDS: LOPERAMIDE 2 MG (IMODIUM) TABLET PO SCH ×4 (09:26→20:15)
[2022-01-12] MEDS: polyethylene glycoL POWDER 17 GM (MIRALAX) PACK PO SCH ×2 (09:27→20:16)
[2022-01-12] MEDS: ENOXAPARIN 40 MG/0.4 ML (LOVENOX) SYR SC SCH (09:28)
[2022-01-12] MEDS: HYDROcodone/APAP 5 MG/325 MG (LORTAB) TAB PO PRN (15:48)
[2022-01-12 19:56] VITALS: BP 145/63
[2022-01-13 05:49] LABS: BASOPHILS % (AUTO) 1 % (0-10); EOSINOPHILS # (AUTO) 0.2 10^3/uL (0.0-0.3); EOSINOPHILS % (AUTO) 5 % (0-10); HEMATOCRIT 27 % (35-52); HEMOGLOBIN 8.3 g/dL (11.5-16.0); LYMPHOCYTES # (AUTO) 1.4 10^3/uL (1.0-4.0); LYMPHOCYTES % (AUTO) 30 % (12-44); MEAN CORPUSCULAR HEMOGLOBIN 26 pg (25-34); MEAN CORPUSCULAR HGB CONC 31 g/dL (32-36); MEAN CORPUSCULAR VOLUME 83 fL (80-99); MEAN PLATELET VOLUME 8.5 fL (9.0-12.2); MONOCYTES # (AUTO) 0.5 10^3/uL (0.0-1.0); MONOCYTES % (AUTO) 10 % (0-12); NEUTROPHILS # (AUTO) 2.5 10^3/uL (1.8-7.8); NEUTROPHILS % (AUTO) 54 % (42-75); PLATELET COUNT 309 10^3/uL (130-400); WHITE BLOOD COUNT 4.6 10^3/uL (4.3-11.0)
[2022-01-13 06:08] LABS: ALBUMIN 2.7 GM/DL (3.2-4.5); BILIRUBIN,TOTAL 0.2 MG/DL (0.1-1.0); CALCIUM 8.1 MG/DL (8.5-10.1); CREATININE SERUM 0.66 MG/DL (0.60-1.30); POTASSIUM 3.4 MMOL/L (3.6-5.0)
[2022-01-13] MEDS: PANTOPRAZOLE 40 MG (PROTONIX) TAB PO SCH (06:16)
[2022-01-13] MEDS: inSUlin ASPART (NovoLOG) 1 UNIT/0.01 ML (CHARGE PER UNIT) SC SCH ×4 (06:18→20:58)
[2022-01-13 07:41] VITALS: BP 130/60
--- NOTE | 2022-01-13 08:11 | Occupational Ther Daily Note ---
OT Current Status-Daily Note Subjective Pt alert, sitting in recliner. Pt agrees to therapy. No c/o pain. Mental Status/Objective Patient Orientation: Person, Confused Acute change in mental status: 0 Inattention: 0 Disorganized thinkin Altered level of consciousness: 0 ADL-Treatment Pt agrees to shower. VALENTINE ordered pt's breakfast and pt in agreement for shower prior to breakfast coming. Pt ambulated to bathroom using FWW. Transferred on/off toilet with SBA using grabbars, BSC and FWW. Pt required clothing manipulation to pull pants up, able to hike pants down over hips and complete own hygiene sitting on toilet though not efficiently. Shower transfer in/out shower CGA for safety using grabbars and shower bench. Completed shower sitting 100% of the time on shower bench using grabbars, hand held shower and LH sponge. Pt required assistance to don/doff socks. Set up for bra and shirt, both over head strategies. Assist to thread pants over feet then pull up over hips while pt stood stabilizing self with grabbars. Pt able to set up own meal and eat with regular utensils. Therapy Code Descriptions/Definitions Functional [place] Measure: 0=Not Assessed/NA 4=Minimal Assistance 1=Total Assistance 5=Supervision or Setup 2=Maximal Assistance 6=Modified [place] 3=Moderate Assistance 7=Complete IndependenceSCALE: Activities may be completed with or without assistive devices. 7-Wjtzafalqx-bsxzbok completes the activity by him/herself with no assistance from a helper. 5-Set-up or Clean-up Assistance-helper sets up or cleans up; patient completes activity. [place] assists only prior to or following the activity. 4-Supervision or Touching Assistance-helper provides verbal cues and/or touching/steadying and/or contact guard assistance as patient completes activity. Assistance may be provided throughout the activity or intermittently. 3-Partial/Moderate Assistance-helper does LESS THAN HALF the effort. [place] lifts, holds or supports trunk or limbs, but provides less than half the effort. 2-Substantial/Maximal Assistance-helper does MORE THAN HALF the effort. [place] lifts or holds trunk or limbs and provides more than half the effort. 1-Ojgnystgw-wupnge does ALL the effort. Patient does none of the effort to complete the activity. Or, the assistance of 2 or more helpers is required for the patient to complete the activity. If activity was not attempted, code reason: 7-Patient Refused. 9-Not Applicable-not attempted and the patient did not perform the activity before the current illness, exacerbation or injury. 10-Not Attempted due to Environmental Limitations-(lack of equipment, weather restraints, etc.). 88-Not Attempted due to Medical Conditions or Safety Concerns. Eating (QC): 6 Shower/Bathe Self (QC): 4 Upper Body Dressing (QC): 5 Lower Body Dressing (QC): 2 On/Off Footwear: 1 Toileting Hygiene (QC): 4 Toilet Transfer (QC): 4 OT Short Term Goals Short Term Goals Time Frame: Jan 17, 2022 Eatin Oral hygiene: 5 Toileting hygiene: 3 Shower/bathe self: 3 Upper body dressin Lower body dressin Putting on/taking off footwear: 2 OT Assisted Goals Assisted Goals Time Frame: Jan 24, 2022 Acute change in mental status: 1 Inattention: 2 Disorganized thinkin Altered level of consciousness: 2 (vigilant) Eating (QC): 5 Oral Hygiene (QC): 5 Toileting Hygiene (QC): 4 Shower/Bathe Self (QC): 4 Upper Body Dressing (QC): 3 (set-up for shirt, min assist for bra) Lower Body Dressing (QC): 3 On/Off Footwear (QC): 2 Additional Goals: 1-Demonstrate ADL Tasks, 2-Verbalize Understanding, 3- ImproveStrength/Pat 1=Demonstrate adherence to instructed precautions during ADL tasks. 2=Patient will verbalize/demonstrate understanding of assistive devices/modifications for ADL. 3=Patient will improve strength/tolerance for activity to enable patient to perform ADL's. OT Education/Plan Problem List/Assessment Assessment: Decreased Activ Tolerance, Decreased Safety Aware, Impaired Cognition, Impaired Self-Care Skills Discharge Recommendations Plan/Recommendations: Continue POC Treatment Plan/Plan of Care Patient would benefit from OT for education, treatment and training to promote independence in ADL's, mobility, safety and/or upper extremity function for ADL's. Plan of Care: ADL Retraining, Caregiver Training, Cognitive Retraining, Functional Mobility, Group Exercise/Act as Ind, UE Funct Exercise/Act, UE Neuromus Re-Ed/Coord, W/C Management Training Treatment Duration: Jan 24, 2022 Frequency: At least 5 of 7 days/Wk (IRF) Estimated Hrs Per Day: 1.5 hours per day (60-75 minutes per day) Agreement: Yes Rehab Potential: Guarded Time/GCodes Start Time: 07:15 Stop Time: 08:30 Total Time Billed (hr/min): 75 Billed Treatment Time 1 visit-ADL 4 (75 min) BLANCA MO Jan 13, 2022 08:10
[2022-01-13] MEDS: hydrALAZINE (APRESOLINE) 25 MG TAB PO SCH ×3 (08:32→19:44)
[2022-01-13] MEDS: lisINopril 20 MG (PRINIVIL) TABLET PO SCH (08:32)
[2022-01-13] MEDS: MEMANTINE 10 MG (NAMENDA) TABLET PO SCH ×2 (08:32→19:44)
[2022-01-13] MEDS: LOPERAMIDE 2 MG (IMODIUM) TABLET PO SCH ×4 (08:32→19:44)
[2022-01-13] MEDS: metFORMIN 500 MG (GLUCOPHAGE) TAB PO SCH ×2 (08:32→17:11)
[2022-01-13] MEDS: amLODIPine 5 MG (NORVASC) TAB PO SCH ×2 (08:32→19:44)
[2022-01-13] MEDS: GLIMEPIRIDE 1 MG (AMARYL) TAB PO SCH ×2 (08:32→17:11)
[2022-01-13] MEDS: polyethylene glycoL POWDER 17 GM (MIRALAX) PACK PO SCH ×2 (08:40→19:22)
--- NOTE | 2022-01-13 10:08 | Speech Therapy Daily Note ---
Speech Daily Progress Note Subjective Date Seen by Provider: Jan 13, 2022 Time Seen by Provider: 09:00 The patient was seated upright in her recliner, awake and alert upon entrance to her room by the clinician. The patient greeted the clinician appropriately and was agreeable to participation in the cognitive linguistic treatment session. Objective The patient participated in informal conversation appropriately remaining on task and displaying functional recall of who gave her hedrick and for what specific reason. The patient appears with increased orientation on this date, stating the accurate month, year, day of the week, location, and city with use of the in-room white board (the patient located the white board on her own). The patient does require frequent redirection throughout the session for topic maintenance and task completion. The patient does display one period of confusion stating she spent the weekend "[place] around [place] the country, drinking some beers, and watching those young boys blast their music." Verbal direction was provided by the clinician. Assessment Assessment Current Status: Fair Progress Treatment Plan Continue Plan of Care Speech Short Term Goals Short Term Goals Short Term Goals 1. The patient will demonstrate accurate orientation over the span of three occasions with 100% accuracy, independently. Time Frame-STG: Three Days. Speech Skin Diving Teacher Goals Skin Diving Teacher Goals 1. The patient will demonstrate improved cognitive linguistic function for safe discharge to the least restrictive environment. Speech-Plan Treatment Plan Speech Therapy Treatment Plan: Continue Plan of Care Treatment Duration: Jan 15, 2022 Frequency: Modified Program (IRF) (Four to five times per week.) Estimated Hrs Per Day: .5 hour per day Rehab Potential: Guarded Safety Risks/Education Teaching Recipient: Patient Teaching Methods: Discussion Response to Teaching: Reinforcement Needed Education Topics Provided: Orientation Strategies Time Speech Therapy Time In: 09:00 Speech Therapy Time Out: 09:30 Total Billed Time: 30 Billed Treatment Time 1NANCYRHIANNA ST Jan 13, 2022 10:08
[2022-01-13] MEDS: ENOXAPARIN 40 MG/0.4 ML (LOVENOX) SYR SC SCH (10:51)
--- NOTE | 2022-01-13 10:51 | Physical Therapy Daily Note ---
PT Daily Note-Current Subjective Patient in recliner pre tx, agrees to PT, voices no complaints of pain but does have pain with activity Pain Section J - Health Conditions 1. Rarely or not at all 2. Occasionally 3. Frequently 4. Almost constantly 8. Unable to answer Pain Effect on Sleep: 0 Pain Interference with Therapy: 4 Pain Interference w/Day-to-Day: 4 Appearance Patient in recliner post tx with nurse call, phone, tray, all needs met, chair alarm on. Mental Status Patient Orientation: Person, Place, Situation Transfers SCALE: Activities may be completed with or without assistive devices. 5-Jheqctxkth-yigsryn completes the activity by him/herself with no assistance from a helper. 5-Set-up or Clean-up Assistance-helper sets up or cleans up; patient completes activity. [place] assists only prior to or following the activity. 4-Supervision or Touching Assistance-helper provides verbal cues and/or touching/steadying and/or contact guard assistance as patient completes activity. Assistance may be provided throughout the activity or intermittently. 3-Partial/Moderate Assistance-helper does LESS THAN HALF the effort. [place] lifts, holds or supports trunk or limbs, but provides less than half the effort. 2-Substantial/Maximal Assistance-helper does MORE THAN HALF the effort. [place] lifts or holds trunk or limbs and provides more than half the effort. 7-Ytnvkvcta-jtmdma does ALL the effort. Patient does none of the effort to complete the activity. Or, the assistance of 2 or more helpers is required for the patient to complete the activity. If activity was not attempted, code reason: 7-Patient Refused. 9-Not Applicable-not attempted and the patient did not perform the activity before the current illness, exacerbation or injury. 10-Not Attempted due to Environmental Limitations-(lack of equipment, weather restraints, etc.). 88-Not Attempted due to Medical Conditions or Safety Concerns. Sit to Stand (QC): 3 Chair/Izs-hj-Igywp Xfer(QC): 4 Toilet Transfer (QC): 4 Min assist for sit to stand, patient slightly unsteady immediately upon standing. During tx patient states she has to have a BM, WC back to her room, standing min assist, toilet transfer CGA, therapist assists with getting pants down and patient sits. Therapist changes brief and puts shorts back on, director of music therapy wipes patient after standing back up and therapist pulls pants back up. Gait Training Distance: 100'x2 Walk 10 feet (QC): 4 Walk 50 ft with 2 Turns(QC): 4 Gait Persons Needed: 1 Gait Assistive Device: FWW WC follow, very slow, antalgic, narrow BALDOMERO, poor step through, slides feet across floor especially the right side Wheelchair Training Does the Pt Use a Wheelchair?: Yes Wheel 50 ft with 2 turns (QC): 3 Type of Wheelchair: Manual 100' min assist Exercises Standing: Marching, Mini squats Standing Reps: 15 NuStep Minutes: 15 NuStep Workload: 4 Treatments transfers, ambulation, functional strengthening, toileting Assessment Current Status: Fair Progress improved ambulation PT Short Term Goals Short Term Goals Time Frame: Jan 14, 2022 Roll Left & Right: 3 (Fawad) Sit to lyin (Fawad) Lying to sitting on side of be: 3 (Fawad) Sit to stand: 3 (Fawad) Chair/tbt-yj-nmiij transfer: 4 (CGA) Walk 10 feet: 4 (CGA) PT Cheese Processor Goals Mcfp Goals PT Cheese Processor Goals Time Frame: Jan 28, 2022 Roll Left & Right (QC): 4 (SBA) Sit to Lying (QC): 4 (SBA) Lying-Sitting on Side/Bed(QC): 4 (SBA) Sit to Stand (QC): 4 (CGA) Chair/Wcd-fp-Tvzsp Xfer(QC): 4 (SBA) Toilet Transfer (QC): 4 (SBA) Car Transfer (QC): 4 (CGA) Does the Patient Walk: Yes Walk 10 feet (QC): 4 (SBA) Walk 50ft with 2 Turns (QC): 4 (SBA) Walk 150 ft (QC): 4 (SBA) Walking 10ft on Uneven Surface: 4 (CGA) 1 Step (curb) (QC): 4 (CGA) 4 Steps (QC): 4 (CGA) 12 Steps (QC): 88 Picking up an Object (QC): 4 (CGA) Wheel 50 feet with 2 turns (QC: 9 Wheel 150 feet: 9 PT Plan Problem List Problem List: Activity Tolerance, Functional Strength, Safety, Balance, Gait, Transfer, Bed Mobility, ROM Treatment/Plan Treatment Plan: Continue Plan of Care Treatment Plan: Bed Mobility, Education, Functional Activity Pat, Functional Strength, Group Therapy, Gait, Safety, Therapeutic Exercise, Transfers Treatment Duration: Jan 28, 2022 Frequency: At least 5 of 7 days/Wk (IRF) Estimated Hrs Per Day: 1.5 hours per day Patient and/or Family Agrees t: Yes Safety Risks/Education Patient Education: Gait Training, Transfer Techniques, Correct Positioning, W/C Management, Safety Issues Teaching Recipient: Patient Teaching Methods: Demonstration, Discussion Response to Teaching: Reinforcement Needed Time/GCodes Time In: 1000 Time Out: 1100 Total Billed Treatment Time: 60 Total Billed Treatment 1 visit EX 20' FA 40' EMIL NOWAK PT Jan 13, 2022 10:51
--- NOTE | 2022-01-13 11:01 | PM&R Progress Note ---
Subjective HPI/CC On Admission Date Seen by Provider: Jan 13, 2022 Time Seen by Provider: 09:00 Subjective/Events-last exam 01/13/2022: Pt is doing pretty well No other concerns Labs reviewed No other major issues 01/12/2022: Doing well Confusion at times Pain at times Imodium working well No other issues 01/11/2022: Doing well Improved cognition today Sleeps a lot DC Jessica since she refuses it Imodium scheduled QID is working well for her and it is safe 01/10/2022: Doing about the same Weakness noted by therapy Confusion is labile No falls 01/09/2022: Doing well Ultram started for the pain No falls Improved cognition 01/09/2022: Patient doing better Pain improved No falls Cognition is labile visits often Review of Systems General: Fatigue, Malaise Neurological: Confusion Objective Exam Vital Signs Vital Signs Date Time Temp Pulse Resp B/P (MAP) Pulse Ox O2 Delivery O2 Flow Rate FiO2 01/13/22 20:40 Room Air 01/13/22 19:44 36.7 98 18 153/75 (101) 95 01/11/22 20:07 21 01/09/22 09:00 0.00 Capillary Refill : General Appearance: No Apparent Distress, Chronically ill, Obese HEENT: PERRL/EOMI, Normal ENT Inspection Neck: Normal Inspection, Non Tender, Supple Respiratory: Chest Non Tender, Lungs Clear, Normal Breath Sounds, No Accessory Muscle Use, No Respiratory Distress Cardiovascular: Regular Rate, Rhythm, No Edema, No Gallop, No JVD Gastrointestinal: Normal Bowel Sounds, No Organomegaly, No Pulsatile Mass, Non Tender, Soft Back: Normal Inspection, No CVA Tenderness, No Vertebral Tenderness Extremity: Normal Inspection, Non Tender Neurologic/Psychiatric: Alert, Oriented x3, 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 FIM Transfers Therapy Code Descriptions/Definitions Functional [place] Measure: 0=Not Assessed/NA 4=Minimal Assistance 1=Total Assistance 5=Supervision or Setup 2=Maximal Assistance 6=Modified [place] 3=Moderate Assistance 7=Complete IndependenceSCALE: Activities may be completed with or without assistive devices. 3-Gfovmcstwf-suhtyzq completes the activity by him/herself with no assistance from a helper. 5-Set-up or Clean-up Assistance-helper sets up or cleans up; patient completes activity. [place] assists only prior to or following the activity. 4-Supervision or Touching Assistance-helper provides verbal cues and/or t ouching/steadying and/or contact guard assistance as patient completes activity. Assistance may be provided throughout the activity or intermittently. 3-Partial/Moderate Assistance-helper does LESS THAN HALF the effort. [place] lifts, holds or supports trunk or limbs, but provides less than half the effort. 2-Substantial/Maximal Assistance-helper does MORE THAN HALF the effort. [place] lifts or holds trunk or limbs and provides more than half the effort. 4-Vzdmccrci-etgvsh does ALL the effort. Patient does none of the effort to complete the activity. Or, the assistance of 2 or more helpers is required for the patient to complete the activity. If activity was not attempted, code reason: 7-Patient Refused. 9-Not Applicable-not attempted and the patient did not perform the activity before the current illness, exacerbation or injury. 10-Not Attempted due to Environmental Limitations-(lack of equipment, weather restraints, etc.). 88-Not Attempted due to Medical Conditions or Safety Concerns. Roll Left to Right (QC): 2 Sit to Lying (QC): 2 Sit to Stand (QC): 3 Chair/Rsv-ul-Jhvsl Xfer(QC): 4 Car Transfer (QC): 88 Gait Training Does the Patient Walk?: Yes Distance: 100'x2 Walk 10 feet (QC): 4 Walk 50 ft with 2 Turns(QC): 4 Walk 150 ft (QC): 88 Walking 10ft/uneven surface-QC: 88 Gait Persons Needed: 1 Gait Assistive Device: FWW Wheelchair Training Does the Pt Use a Wheelchair?: Yes Distance: 50'x2 Wheel 50 ft with 2 turns (QC): 3 Wheel 150 ft (QC): 88 Type of Wheelchair: Manual Stair Training 1 Step (curb) (QC): 88 4 Steps (QC): 88 12 Steps (QC): 88 Balance Picking up an Object (QC): 88 ADL-Treatment Eating (QC): 6 Oral Hygiene (QC): 6 Bathing Location: L Arm, R Arm, L Upper Leg, R Upper Leg, L Lower Leg (including foot), R Lower Leg (including foot), Chest, Abdomen, Buttocks, Perineal Area Shower/Bathe Self (QC): 4 Upper Body Dressing (QC): 5 Lower Body Dressing (QC): 2 On/Off Footwear (QC): 1 Toileting Hygiene (QC): 4 Toilet Transfer (QC): 4 Assessment/Plan Assessment and Plan Assess & Plan/Chief Complaint Assessment: S/p subtotal colectomy w/ileorectal anastamosis POD #22 Small bowel obstruction- Found on Xray (01-01-2022)- Resolved Hypokalemia Colon cancer T2DM HTN-OOC Dementia TBI at 22yo Plan: PT OT Monitor pain Monitor loose stools Monitor delirium 01/08/2022: Imodium Monitor cognitive changes 01/09/2022: Imodium Ultram 01/10/2022: Supportive care Expect labile confusion 01/10/2022: Restart DM med home dosing Monitor elevated BP 01/11/2022: DC Questran Increase BP meds with Hydralazine 01/12/2022: Monitor closely 01/13/2022: Monitor BP and sugar (1) Generalized weakness Status: Acute (2) Colon cancer (3) GI bleed (4) Edema (5) Diabetes (6) Dementia Status: Acute JAMES BOWDEN DO Jan 13, 2022 11:01
--- NOTE | 2022-01-13 12:04 | Progress Note ---
DARIN ESPANA 01/13/22 1204: Progress Note CC: Debility following colon cancer subtotal colectomy HPI: This is a 81yoWF clinic patient of Dr. Acosta who presented to ARU following a lengthy course on 4th floor swing bed after ICU transfer following a subtotal colectomy by Dr. Parks for colon cancer. Patient did have SBO requiring NGT which resolved within 4 days. She has dementia with h/o TBI making it difficult to follow tasks and increase motivation. PLOF was walking with a walker with assisting ADL's and now she is requiring 1-2 transfers with ambulation and confusion comes and goes. Patient is sitting in recliner when I visited and reports that she is doing great today. Is having bowel movements, urinating, and pain is well controlled. Today will provide OMM to patient for assistance with recovery ROS: General: Fatigue, Malaise Neurological: No confusion today Exam: General Appearance: No Apparent Distress, Chronically ill, Obese HEENT: PERRL/EOMI Respiratory: Chest Non Tender, Lungs Clear, Normal Breath Sounds, No Accessory Muscle Use, No Respiratory Distress Cardiovascular: RRR, No Edema, No Gallop, No JVD Gastrointestinal: Normal Bowel Sounds, No Organomegaly, No Pulsatile Mass, Non Tender, Soft Extremity: Normal Inspection, Non Tender Neurologic/Psychiatric: Alert, Oriented x3, Normal Affect Skin: Normal Color, Warm/Dry Lymphatic: No Adenopathy Assessment: S/p subtotal colectomy w/ileorectal anastamosis POD #21 Small bowel obstruction- Found on Xray (01-01-2022)- Resolved Hypokalemia Colon cancer T2DM HTN-OOC Dementia 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 I reviewed and verified all information documented by the medical student and made modifications to such information, when appropriate. I personally performed the physical exam and medical decision making. Mayra Acosta, Jan 14, 2022,05:23 DARIN ESPANA Jan 13, 2022 12:04 MAYRA ACOSTA DO Jan 14, 2022 05:23
--- NOTE | 2022-01-13 13:44 | Physical Therapy Daily Note ---
PT Daily Note-Current Subjective Patient in restroom pre tx, nurse aide helping patient to stand after using the toilet. PT will assist. Pain Section J - Health Conditions 1. Rarely or not at all 2. Occasionally 3. Frequently 4. Almost constantly 8. Unable to answer Pain Effect on Sleep: 0 Pain Interference with Therapy: 4 Pain Interference w/Day-to-Day: 4 Appearance Patient in recliner post tx with nurse call, phone, tray, chair alarm on. Mental Status Patient Orientation: Person, Place, Situation Transfers SCALE: Activities may be completed with or without assistive devices. 6-Arnxtzxcig-uhzzmsb completes the activity by him/herself with no assistance from a helper. 5-Set-up or Clean-up Assistance-helper sets up or cleans up; patient completes activity. [place] assists only prior to or following the activity. 4-Supervision or Touching Assistance-helper provides verbal cues and/or touching/steadying and/or contact guard assistance as patient completes activity. Assistance may be provided throughout the activity or intermittently. 3-Partial/Moderate Assistance-helper does LESS THAN HALF the effort. [place] lifts, holds or supports trunk or limbs, but provides less than half the effort. 2-Substantial/Maximal Assistance-helper does MORE THAN HALF the effort. [place] lifts or holds trunk or limbs and provides more than half the effort. 3-Aysqlpyws-gypbzi does ALL the effort. Patient does none of the effort to complete the activity. Or, the assistance of 2 or more helpers is required for the patient to complete the activity. If activity was not attempted, code reason: 7-Patient Refused. 9-Not Applicable-not attempted and the patient did not perform the activity before the current illness, exacerbation or injury. 10-Not Attempted due to Environmental Limitations-(lack of equipment, weather restraints, etc.). 88-Not Attempted due to Medical Conditions or Safety Concerns. Sit to Stand (QC): 3 Chair/Rqk-my-Qgwcw Xfer(QC): 4 Toilet Transfer (QC): 4 Patient is having 10/10 knee pain bilaterally and can barely stand, assist to get pants back up and patient attempts to ambulate back to her recliner but can only take a couple of steps, WC is quickly put behind her and she sits. Patient is wheeled back to her recliner and she takes a rest due to severe knee pain, stands with min assist and transfers back to recliner. Treatments toileting, standing, transfers Assessment Current Status: Poor Progress Intense pain prevents ambulation. Patient states she feels like she is getting worse. Nurse notified of pain. PT Short Term Goals Short Term Goals Time Frame: Jan 14, 2022 Roll Left & Right: 3 (Fawad) Sit to lyin (Fawad) Lying to sitting on side of be: 3 (Fawad) Sit to stand: 3 (Fawad) Chair/ftf-up-udybr transfer: 4 (CGA) Walk 10 feet: 4 (CGA) PT Gage Designer Goals Gage Designer Goals PT Prison Goals Time Frame: Jan 28, 2022 Roll Left & Right (QC): 4 (SBA) Sit to Lying (QC): 4 (SBA) Lying-Sitting on Side/Bed(QC): 4 (SBA) Sit to Stand (QC): 4 (CGA) Chair/Nuk-sb-[place] Xfer(QC): 4 (SBA) Toilet Transfer (QC): 4 (SBA) Car Transfer (QC): 4 (CGA) Does the Patient Walk: Yes Walk 10 feet (QC): 4 (SBA) Walk 50ft with 2 Turns (QC): 4 (SBA) Walk 150 ft (QC): 4 (SBA) Walking 10ft on Uneven Surface: 4 (CGA) 1 Step (curb) (QC): 4 (CGA) 4 Steps (QC): 4 (CGA) 12 Steps (QC): 88 Picking up an Object (QC): 4 (CGA) Wheel 50 feet with 2 turns (QC: 9 Wheel 150 feet: 9 PT Plan Problem List Problem List: Activity Tolerance, Functional Strength, Safety, Balance, Gait, Transfer, Bed Mobility, ROM Treatment/Plan Treatment Plan: Continue Plan of Care Treatment Plan: Bed Mobility, Education, Functional Activity Pat, Functional Strength, Group Therapy, Gait, Safety, Therapeutic Exercise, Transfers Treatment Duration: Jan 28, 2022 Frequency: At least 5 of 7 days/Wk (IRF) Estimated Hrs Per Day: 1.5 hours per day Patient and/or Family Agrees t: Yes Safety Risks/Education Patient Education: Transfer Techniques, Correct Positioning, Safety Issues Teaching Recipient: Patient Teaching Methods: Demonstration, Discussion Response to Teaching: Reinforcement Needed Time/GCodes Time In: 1330 Time Out: 1345 Total Billed Treatment Time: 15 Total Billed Treatment 1 visit FA Sabas' EMIL NOWAK PT Jan 13, 2022 13:44
[2022-01-13] MEDS: HYDROcodone/APAP 5 MG/325 MG (LORTAB) TAB PO PRN ×2 (14:15→19:44)
[2022-01-13 19:44] VITALS: BP 153/75
[2022-01-14] MEDS: PANTOPRAZOLE 40 MG (PROTONIX) TAB PO SCH (05:40)
[2022-01-14] MEDS: inSUlin ASPART (NovoLOG) 1 UNIT/0.01 ML (CHARGE PER UNIT) SC SCH ×4 (05:40→21:33)
--- NOTE | 2022-01-14 05:41 | PM&R Progress Note ---
Subjective HPI/CC On Admission Date Seen by Provider: Jan 14, 2022 Time Seen by Provider: 09:00 Subjective/Events-last exam 01/14/2022: Pt is doing about the same Having loose stools, will respond to Imodium Podiatry consult Assisted living will likely be where she needs to go 01/13/2022: Pt is doing pretty well No other concerns Labs reviewed No other major issues 01/12/2022: Doing well Confusion at times Pain at times Imodium working well No other issues 01/11/2022: Doing well Improved cognition today Sleeps a lot DC Jessica since she refuses it Imodium scheduled QID is working well for her and it is safe 01/10/2022: Doing about the same Weakness noted by therapy Confusion is labile No falls 01/09/2022: Doing well Ultram started for the pain No falls Improved cognition 01/09/2022: Patient doing better Pain improved No falls Cognition is labile visits often Review of Systems General: Fatigue, Malaise Objective Exam Vital Signs Vital Signs Date Time Temp Pulse Resp B/P (MAP) Pulse Ox O2 Delivery O2 Flow Rate FiO2 01/14/22 21:00 Room Air 01/14/22 19:42 36.7 96 16 131/79 (96) 92 01/14/22 08:09 21 01/09/22 09:00 0.00 Capillary Refill : General Appearance: No Apparent Distress, Chronically ill, Obese HEENT: PERRL/EOMI, Normal ENT Inspection Neck: Normal Inspection, Non Tender, Supple Respiratory: Chest Non Tender, Lungs Clear, Normal Breath Sounds, No Accessory Muscle Use, No Respiratory Distress Cardiovascular: Regular Rate, Rhythm, No Edema, No Gallop, No JVD Gastrointestinal: Normal Bowel Sounds, No Organomegaly, No Pulsatile Mass, Non Tender, Soft Back: Normal Inspection, No CVA Tenderness, No Vertebral Tenderness Extremity: Normal Inspection, Non Tender Neurologic/Psychiatric: Alert, Oriented x3, hospital internship II-XII Norm as Tested, Depressed Affect, Disoriented Skin: Normal Color, Warm/Dry Lymphatic: No Adenopathy Results/Procedures Lab Patient resulted labs reviewed. FIM Transfers Therapy Code Descriptions/Definitions Functional [place] Measure: 0=Not Assessed/NA 4=Minimal Assistance 1=Total Assistance 5=Supervision or Setup 2=Maximal Assistance 6=Modified [place] 3=Moderate Assistance 7=Complete IndependenceSCALE: Activities may be completed with or without assistive devices. 6-Vyocjxsbgv-monpttu completes the activity by him/herself with no assistance from a helper. 5-Set-up or Clean-up Assistance-helper sets up or cleans up; patient completes activity. [place] assists only prior to or following the activity. 4-Supervision or Touching Assistance-helper provides verbal cues and/or touching/steadying and/or contact guard assistance as patient completes activity. Assistance may be provided throughout the activity or intermittently. 3-Partial/Moderate Assistance-helper does LESS THAN HALF the effort. [place] lifts, holds or supports trunk or limbs, but provides less than half the effort. 2-Substantial/Maximal Assistance-helper does MORE THAN HALF the effort. [place] lifts or holds trunk or limbs and provides more than half the effort. 3-Vaankqksn-alinfg does ALL the effort. Patient does none of the effort to complete the activity. Or, the assistance of 2 or more helpers is required for the patient to complete the activity. If activity was not attempted, code reason: 7-Patient Refused. 9-Not Applicable-not attempted and the patient did not perform the activity be fore the current illness, exacerbation or injury. 10-Not Attempted due to Environmental Limitations-(lack of equipment, weather restraints, etc.). 88-Not Attempted due to Medical Conditions or Safety Concerns. Roll Left to Right (QC): 2 Sit to Lying (QC): 2 Sit to Stand (QC): 3 Chair/Nbb-sk-Fikol Xfer(QC): 4 Car Transfer (QC): 88 Gait Training Does the Patient Walk?: Yes Distance: 100'x2 Walk 10 feet (QC): 4 Walk 50 ft with 2 Turns(QC): 4 Walk 150 ft (QC): 88 Walking 10ft/uneven surface-QC: 88 Gait Persons Needed: 1 Gait Assistive Device: FWW Wheelchair Training Does the Pt Use a Wheelchair?: Yes Distance: 50'x2 Wheel 50 ft with 2 turns (QC): 3 Wheel 150 ft (QC): 88 Type of Wheelchair: Manual Stair Training 1 Step (curb) (QC): 88 4 Steps (QC): 88 12 Steps (QC): 88 Balance Picking up an Object (QC): 88 ADL-Treatment Eating (QC): 6 Oral Hygiene (QC): 6 Bathing Location: L Arm, R Arm, L Upper Leg, R Upper Leg, L Lower Leg (including foot), R Lower Leg (including foot), Chest, Abdomen, Buttocks, Perineal Area Shower/Bathe Self (QC): 4 Upper Body Dressing (QC): 5 Lower Body Dressing (QC): 2 On/Off Footwear (QC): 1 Toileting Hygiene (QC): 4 Toilet Transfer (QC): 4 Assessment/Plan Assessment and Plan Assess & Plan/Chief Complaint Assessment: S/p subtotal colectomy w/ileorectal anastamosis POD #23 Small bowel obstruction- Found on Xray (01-01-2022)- Resolved Hypokalemia Colon cancer T2DM HTN-OOC Dementia TBI at 22yo Plan: PT OT Monitor pain Monitor loose stools Monitor delirium 01/08/2022: Imodium Monitor cognitive changes 01/09/2022: Imodium Ultram 01/10/2022: Supportive care Expect labile confusion 01/10/2022: Restart DM med home dosing Monitor elevated BP 01/11/2022: DC Ascencionran Increase BP meds with Hydralazine 01/12/2022: Monitor closely 01/13/2022: Monitor BP and sugar 01/14/2022: Supportive care Pain control (1) Generalized weakness Status: Acute (2) Colon cancer (3) GI bleed (4) Edema (5) Diabetes (6) Dementia Status: Acute JAMES BOWDEN DO Jan 14, 2022 05:41
[2022-01-14 07:26] VITALS: BP 148/67
[2022-01-14 08:09] VITALS: BP 148/67
[2022-01-14] MEDS: GLIMEPIRIDE 1 MG (AMARYL) TAB PO SCH ×2 (08:30→17:28)
[2022-01-14] MEDS: LOPERAMIDE 2 MG (IMODIUM) TABLET PO SCH ×4 (08:30→20:40)
[2022-01-14] MEDS: MEMANTINE 10 MG (NAMENDA) TABLET PO SCH ×2 (08:30→20:40)
[2022-01-14] MEDS: cloNIDine 0.1 MG PATCH (CATAPRES TTS) TDSY TD SCH (08:30)
[2022-01-14] MEDS: HYDROcodone/APAP 5 MG/325 MG (LORTAB) TAB PO PRN (08:30)
[2022-01-14] MEDS: LOPERAMIDE 2 MG (IMODIUM) TABLET PO PRN (08:30)
[2022-01-14] MEDS: hydrALAZINE (APRESOLINE) 25 MG TAB PO SCH ×3 (08:30→20:40)
[2022-01-14] MEDS: amLODIPine 5 MG (NORVASC) TAB PO SCH ×2 (08:30→20:40)
[2022-01-14] MEDS: metFORMIN 500 MG (GLUCOPHAGE) TAB PO SCH ×2 (08:33→17:28)
[2022-01-14] MEDS: lisINopril 20 MG (PRINIVIL) TABLET PO SCH (08:33)
[2022-01-14] MEDS: CLONIDINE PATCH REMOVAL TP SCH (08:34)
--- NOTE | 2022-01-14 08:53 | Occupational Ther Daily Note ---
OT Current Status-Daily Note Subjective Pt alert in recliner. Pt agrees to therapy. No c/o pain at this time. Mental Status/Objective Patient Orientation: Person, Place, Time, Situation Acute change in mental status: 0 Inattention: 0 Disorganized thinkin Altered level of consciousness: 0 ADL-Treatment Pt ambulated from recliner to toilet using FWW, CGA from sit to stand. Pt SPT onto toilet CGA. Pt max A in toilet hygiene. Pt transferred to using FWW, C GA. Pt completed oral care sitting at sink independent. Pt ambulated with FWW to ME[facility] floor [facility]. Pt completed toileting 6x through the duration of OT session. Nrsg notified that pt has had loose stools, nrsg brought meds. Pt left in recliner call light/phone in reach. All needs met in room. Safety precautions in place. Therapy Code Descriptions/Definitions Functional [place] Measure: 0=Not Assessed/NA 4=Minimal Assistance 1=Total Assistance 5=Supervision or Setup 2=Maximal Assistance 6=Modified [place] 3=Moderate Assistance 7=Complete IndependenceSCALE: Activities may be completed with or without assistive devices. 4-Amfeyanbaf-xoodbik completes the activity by him/herself with no assistance from a helper. 5-Set-up or Clean-up Assistance-helper sets up or cleans up; patient completes activity. [place] assists only prior to or following the activity. 4-Supervision or Touching Assistance-helper provides verbal cues and/or touching/steadying and/or contact guard assistance as patient completes activity. Assistance may be provided throughout the activity or intermittently. 3-Partial/Moderate Assistance-helper does LESS THAN HALF the effort. [place] lifts, holds or supports trunk or limbs, but provides less than half the effort. 2-Substantial/Maximal Assistance-helper does MORE THAN HALF the effort. [place] lifts or holds trunk or limbs and provides more than half the effort. 7-Ekgxbmddg-gxwfbo does ALL the effort. Patient does none of the effort to complete the activity. Or, the assistance of 2 or more helpers is required for the patient to complete the activity. If activity was not attempted, code reason: 7-Patient Refused. 9-Not Applicable-not attempted and the patient did not perform the activity before the current illness, exacerbation or injury. 10-Not Attempted due to Environmental Limitations-(lack of equipment, weather restraints, etc.). 88-Not Attempted due to Medical Conditions or Safety Concerns. Other Treatment Pt completed fine motor tasks with cognition component in standing to strengthen dynamic standing balance. Pt educated on positioning self in recliner. OT Short Term Goals Short Term Goals Time Frame: Jan 17, 2022 Eatin Oral hygiene: 5 Toileting hygiene: 3 Shower/bathe self: 3 Upper body dressin Lower body dressin Putting on/taking off footwear: 2 OT Halfway Goals Fireproof Door Assembler Goals Time Frame: Jan 24, 2022 Acute change in mental status: 0 Inattention: 0 Disorganized thinkin Altered level of consciousness: 0 Eating (QC): 5 Oral Hygiene (QC): 5 Toileting Hygiene (QC): 4 Shower/Bathe Self (QC): 4 Upper Body Dressing (QC): 3 (set-up for shirt, min assist for bra) Lower Body Dressing (QC): 3 On/Off Footwear (QC): 2 Additional Goals: 1-Demonstrate ADL Tasks, 2-Verbalize Understanding, 3- ImproveStrength/Pat 1=Demonstrate adherence to instructed precautions during ADL tasks. 2=Patient will verbalize/demonstrate understanding of assistive devices/ modifications for ADL. 3=Patient will improve strength/tolerance for activity to enable patient to perform ADL's. OT Education/Plan Problem List/Assessment Assessment: Decreased Activ Tolerance, Decreased Safety Aware, Decreased UE Strength, Impaired Cognition, Impaired Coordination, Impaired Funct Balance, Impaired Self-Care Skills Discharge Recommendations Plan/Recommendations: Continue POC Treatment Plan/Plan of Care Patient would benefit from OT for education, treatment and training to promote independence in ADL's, mobility, safety and/or upper extremity function for ADL's. Plan of Care: ADL Retraining, Caregiver Training, Cognitive Retraining, Functional Mobility, Group Exercise/Act as Ind, UE Funct Exercise/Act, UE Neuromus Re-Ed/Coord, W/C Management Training Treatment Duration: Jan 24, 2022 Frequency: At least 5 of 7 days/Wk (IRF) Estimated Hrs Per Day: 1.5 hours per day (60-75 minutes per day) Agreement: Yes Rehab Potential: Guarded Time/GCodes Start Time: 07:30 Stop Time: 09:00 Total Time Billed (hr/min): 90 Billed Treatment Time 1 visit ADL 4 (60 min) EX1 (20 min) FA 1 (10 min) BLANCA MO Jan 14, 2022 08:53
[2022-01-14] MEDS: polyethylene glycoL POWDER 17 GM (MIRALAX) PACK PO SCH ×2 (09:00→20:40)
--- NOTE | 2022-01-14 09:33 | Speech Therapy Daily Note ---
Speech Daily Progress Note Subjective Date Seen by Provider: Jan 14, 2022 Time Seen by Provider: 09:00 The patient was seated upright, sleeping upon entrance to her room. The patient woke easily and was agreeable to participation in the cognitive linguistic treatment session. Objective Following today's session, the patient appears to be at baseline cognition. ST will monitor for an additional session to ensure confusion remains decreased. If confusion remains relatively low (at baseline), ST will consider discharging the patient from skilled services as visual aids are present in the room to help with re-orientation and the patient continues to display a lack of progress towards memory goals. Orientation: The patient was oriented to month, day of the week, year, location and city with use of the in-room white board (the patient independently located the information). Home Safety: The patient stated she has a portable phone she keeps with her throughout the day at her home. The patient states she shares a cell phone with her and does not own a life alert. The clinician reviewed the emergency number of 911 and specific emergency situations in the home where it would be appropriate to contact 911/emergency services. Safety scenarios were provided to the patient and she required moderate clinician cueing to provide an appropriate, safe solution. The clinician does believe an assisted living environment may be the most appropriate setting for the patient. Assessment Assessment Current Status: Fair Progress Treatment Plan Continue Plan of Care Speech Short Term Goals Short Term Goals Short Term Goals 1. The patient will demonstrate accurate orientation over the span of three occasions with 100% accuracy, independently. Time Frame-STG: Three Days. Speech Snack Bar Cashier Goals Halfway Goals 1. The patient will demonstrate improved cognitive linguistic function for safe discharge to the least restrictive environment. Speech-Plan Treatment Plan Speech Therapy Treatment Plan: Continue Plan of Care Treatment Duration: Jan 15, 2022 Frequency: Modified Program (IRF) (Four to five times per week.) Estimated Hrs Per Day: .5 hour per day Rehab Potential: Guarded Safety Risks/Education Teaching Recipient: Patient Teaching Methods: Demonstration, Discussion Response to Teaching: Verbalize Understanding, Reinforcement Needed Education Topics Provided: Home Safety Time Speech Therapy Time In: 09:00 Speech Therapy Time Out: 09:30 Total Billed Time: 30 Billed Treatment Time 1, RHIANNA Fink Jan 14, 2022 09:33
[2022-01-14] MEDS: ONDANSETRON 4 MG (ZOFRAN) ORAL DISSOLVE TAB PO PRN ×2 (10:47→16:38)
[2022-01-14] MEDS: ENOXAPARIN 40 MG/0.4 ML (LOVENOX) SYR SC SCH (10:47)
--- NOTE | 2022-01-14 11:01 | Physical Therapy Daily Note ---
PT Daily Note-Current Subjective Patient in recliner pre tx, agrees to PT, has unrated but patient states increased bilateral knee pain Pain Section J - Health Conditions 1. Rarely or not at all 2. Occasionally 3. Frequently 4. Almost constantly 8. Unable to answer Pain Effect on Sleep: 0 Pain Interference with Therapy: 4 Pain Interference w/Day-to-Day: 4 Appearance Patient in bed post tx with nurse call, phone, tray, all needs met. Mental Status Patient Orientation: Person, Place, Situation Transfers SCALE: Activities may be completed with or without assistive devices. 0-Cxtuljskup-qvjzlwj completes the activity by him/herself with no assistance from a helper. 5-Set-up or Clean-up Assistance-helper sets up or cleans up; patient completes activity. [place] assists only prior to or following the activity. 4-Supervision or Touching Assistance-helper provides verbal cues and/or touching/steadying and/or contact guard assistance as patient completes activity. Assistance may be provided throughout the activity or intermittently. 3-Partial/Moderate Assistance-helper does LESS THAN HALF the effort. [place] lifts, holds or supports trunk or limbs, but provides less than half the effort. 2-Substantial/Maximal Assistance-helper does MORE THAN HALF the effort. [place] lifts or holds trunk or limbs and provides more than half the effort. 5-Dbkcdavvp-ndthec does ALL the effort. Patient does none of the effort to complete the activity. Or, the assistance of 2 or more helpers is required for the patient to complete the activity. If activity was not attempted, code reason: 7-Patient Refused. 9-Not Applicable-not attempted and the patient did not perform the activity before the current illness, exacerbation or injury. 10-Not Attempted due to Environmental Limitations-(lack of equipment, weather restraints, etc.). 88-Not Attempted due to Medical Conditions or Safety Concerns. Roll Left & Right (QC): 3 Sit to Lying (QC): 3 Sit to Stand (QC): 3 Chair/Sac-dx-Vwzkq Xfer(QC): 4 Toilet Transfer (QC): 4 During tx patient states she needs to have a BM, take back to her restroom and she needs assist of 2, gets sick and vomits, nurse in room gives meds, continues to have BM, when done transfers to WC and then to bed, nurse aide helps with wiping and pants. Gait Training Distance: 10' Walk 10 feet (QC): 4 Gait Persons Needed: 1 Gait Assistive Device: FWW patient only able to ambulate 10' one time this morning due to knee pain Wheelchair Training Does the Pt Use a Wheelchair?: Yes Wheel 50 ft with 2 turns (QC): 3 Type of Wheelchair: Manual 100' min assist Exercises LAQ alternating for 5 min NuStep Minutes: 15 NuStep Workload: 4 Treatments bed mobility and transfers, ambulation, WC mobility, functional strengthening Assessment Current Status: Poor Progress decrease in functional mobility today PT Short Term Goals Short Term Goals Time Frame: Jan 14, 2022 Roll Left & Right: 3 (Fawad) Sit to lyin (Fawad) Lying to sitting on side of be: 3 (Fawad) Sit to stand: 3 (Fawad) Chair/fdq-bh-ffcul transfer: 4 (CGA) Walk 10 feet: 4 (CGA) PT Condenser Operator Goals Intermediate Goals PT Intermediate Goals Time Frame: Jan 28, 2022 Roll Left & Right (QC): 4 (SBA) Sit to Lying (QC): 4 (SBA) Lying-Sitting on Side/Bed(QC): 4 (SBA) Sit to Stand (QC): 4 (CGA) Chair/Nta-mx-Drrqz Xfer(QC): 4 (SBA) Toilet Transfer (QC): 4 (SBA) Car Transfer (QC): 4 (CGA) Does the Patient Walk: Yes Walk 10 feet (QC): 4 (SBA) Walk 50ft with 2 Turns (QC): 4 (SBA) Walk 150 ft (QC): 4 (SBA) Walking 10ft on Uneven Surface: 4 (CGA) 1 Step (curb) (QC): 4 (CGA) 4 Steps (QC): 4 (CGA) 12 Steps (QC): 88 Picking up an Object (QC): 4 (CGA) Wheel 50 feet with 2 turns (QC: 9 Wheel 150 feet: 9 PT Plan Problem List Problem List: Activity Tolerance, Functional Strength, Safety, Balance, Gait, Transfer, Bed Mobility, ROM Treatment/Plan Treatment Plan: Continue Plan of Care Treatment Plan: Bed Mobility, Education, Functional Activity Pat, Functional Strength, Group Therapy, Gait, Safety, Therapeutic Exercise, Transfers Treatment Duration: Jan 28, 2022 Frequency: At least 5 of 7 days/Wk (IRF) Estimated Hrs Per Day: 1.5 hours per day Patient and/or Family Agrees t: Yes Safety Risks/Education Patient Education: Gait Training, Transfer Techniques, Correct Positioning, W/C Management, Safety Issues Teaching Recipient: Patient Teaching Methods: Demonstration, Discussion Response to Teaching: Reinforcement Needed Time/GCodes Time In: 1000 Time Out: 1100 Total Billed Treatment Time: 60 Total Billed Treatment 1 visit EX 20' FA 40' EMIL NOWAK PT Jan 14, 2022 11:01
--- NOTE | 2022-01-14 13:48 | Progress Note ---
DARIN ESPANA 01/14/22 1348: Progress Note CC: Debility following colon cancer subtotal colectomy HPI: This is a 81yoWF clinic patient of Dr. Acosta who presented to ARU following a lengthy course on 4th floor swing bed after ICU transfer following a subtotal colectomy by Dr. Parks for colon cancer. Patient did have SBO requiring NGT which resolved within 4 days. She has dementia with h/o TBI making it difficult to follow tasks and increase motivation. PLOF was walking with a walker with assisting ADL's and now she is requiring 1-2 transfers with ambulation and confusion comes and goes. Patient is sitting in recliner when I visited. Reports she is doing great today and continuing to improve. Is having bowel movements, urinating, and pain is well controlled. Today will provide OMM to patient for assistance with recovery ROS: General: Fatigue, Malaise Neurological: No confusion today Exam: General Appearance: No Apparent Distress, Chronically ill, Obese HEENT: PERRL/EOMI Respiratory: Chest Non Tender, Lungs Clear, Normal Breath Sounds, No Accessory Muscle Use, No Respiratory Distress Cardiovascular: RRR, No Edema, No Gallop, No JVD Gastrointestinal: Normal Bowel Sounds, No Organomegaly, No Pulsatile Mass, Non Tender, Soft Extremity: Normal Inspection, Non Tender Neurologic/Psychiatric: Alert, Oriented x3, Normal Affect Skin: Normal Color, Warm/Dry Lymphatic: No Adenopathy Assessment: S/p subtotal colectomy w/ileorectal anastamosis POD #21 Small bowel obstruction- Found on Xray (01-01-2022)- Resolved Hypokalemia Colon cancer T2DM HTN-OOC Dementia 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 I reviewed and verified all information documented by the medical student and made modifications to such information, when appropriate. I personally performed the physical exam and medical decision making. Mayra Acosta, Jan 15, 2022,05:52 DARIN ESPANA Jan 14, 2022 13:48 MAYRA ACOSTA DO Jan 15, 2022 05:52
--- NOTE | 2022-01-14 17:04 | Podiatry Progress Note ---
Standard Progress Note Progress Notes/Assess & Plan Date Seen by a Provider: Jan 14, 2022 Time Seen by a Provider: 17:03 Progress/Assessment & Plan See consultation. Foot care given. Final Diagnosis Onychomycosis, Peripheral Neuropathy, Edema GORDON LEBRON DPLaura Jan 14, 2022 17:03
[2022-01-14 19:42] VITALS: BP 131/79
--- NOTE | 2022-01-14 22:16 | CONSULTATION REPORT ---
DATE OF SERVICE: 01/14/2022 REASON FOR CONSULTATION: Foot care. HISTORY OF PRESENT ILLNESS: This 81-year-old female was admitted after she had a colectomy performed secondary to colon cancer. She subsequently had a small-bowel obstruction and had a NG tube placed. She has difficulty reaching for and caring for her feet and is going through rehabilitation at this time due to her lack of ability to treat her own feet, she is complaining of painfully long toenails. She has utilized our services in this regard in the past. PAST MEDICAL HISTORY: The patient has a past medical history of high cholesterolemia, hypertension, dementia, traumatic brain injury, postmenopausal, chronic diarrhea, diabetes, non-insulin dependent, cataract surgery, abdominal surgery, appendectomy, cholecystectomy, tonsillectomy and tracheotomy as well as the above-mentioned colon resection. ALLERGIES: SHE HAS ALLERGIES TO PENICILLIN AND SULFA. CURRENT MEDICATIONS: Listed on the patient's chart. SOCIAL HISTORY: She is , retired. Denies tobacco, alcohol or illicit drug use. PHYSICAL EXAMINATION: LOWER EXTREMITY: The patient has 1/4 dorsalis pedis pulse on the right, 0/4 on the left, 0/4 posterior tibial pulse on the right and left. Cap refill time is less than 3 seconds to the hallux bilaterally. The patient has edema noted to the lower extremity bilaterally including the ankle and foot. NEUROLOGIC: The patient has intact protective sensation with 10 gram monofilament wire examination bilaterally. She has diminished vibratory sensation to the forefoot bilaterally and decreased deep tendon reflexes to the Achilles tendon bilaterally. INTEGUMENTARY: The patient has thick yellow dystrophic toenails with subungual debris R1, 2 and L2 digits. No open wounds, no ecchymosis identified bilaterally. MUSCULOSKELETAL FINDINGS: The patient has 4/5 muscle strength to the four major quadrants of the foot bilaterally. She has some decrease in the fat pad to the forefoot bilaterally. ASSESSMENT: Include diabetic neuropathy, atherosclerosis, edema, onychomycosis. PLAN: Various treatment options were discussed with the patient. Her toenails were debrided manually mechanically. Betadine applied. We discussed diabetic foot care with the patient and pressure precautions, especially when she is in bed for extended period of time. I will see the patient in the office upon discharge. Job ID: [id number] DocumentID: [id number] Dictated Date: 01/14/2022 17:10:56 Office Cashier Date: 01/14/2022 22:15:54 Dictated By: GORDON LEBRON DPM
--- NOTE | 2022-01-15 05:56 | PM&R Progress Note ---
Subjective HPI/CC On Admission Date Seen by Provider: Jan 15, 2022 Time Seen by Provider: 08:30 Subjective/Events-last exam 01/15/2022: Pt is doing a little better Nausea, will be given Zofran Imodium will be given scheduled, that is helping loose stools from subtotal colectomy 01/14/2022: Pt is doing about the same Having loose stools, will respond to Imodium Podiatry consult Assisted living will likely be where she needs to go 01/13/2022: Pt is doing pretty well No other concerns Labs reviewed No other major issues 01/12/2022: Doing well Confusion at times Pain at times Imodium working well No other issues 01/11/2022: Doing well Improved cognition today Sleeps a lot CRYSTAL Lopez since she refuses it Imodium scheduled QID is working well for her and it is safe 01/10/2022: Doing about the same Weakness noted by therapy Confusion is labile No falls 01/09/2022: Doing well Ultram started for the pain No falls Improved cognition 01/09/2022: Patient doing better Pain improved No falls Cognition is labile visits often Review of Systems General: Fatigue, Malaise Gastrointestinal: Abdominal Pain Neurological: Confusion Objective Exam Vital Signs Vital Signs Date Time Temp Pulse Resp B/P (MAP) Pulse Ox O2 Delivery O2 Flow Rate FiO2 01/15/22 12:49 155/70 (98) 01/15/22 08:10 Room Air 01/15/22 07:23 36.7 104 20 90 01/14/22 08:09 21 01/09/22 09:00 0.00 Capillary Refill : General Appearance: No Apparent Distress, Chronically ill, Obese HEENT: PERRL/EOMI, Normal ENT Inspection Neck: Normal Inspection, Non Tender, Supple Respiratory: Chest Non Tender, Lungs Clear, Normal Breath Sounds, No Accessory Muscle Use, No Respiratory Distress Cardiovascular: Regular Rate, Rhythm, No Edema, No Gallop, No JVD Gastrointestinal: Normal Bowel Sounds, No Organomegaly, No Pulsatile Mass, Non Tender, Soft Back: Normal Inspection, No CVA Tenderness, No Vertebral Tenderness Extremity: Normal Inspection, Non Tender Neurologic/Psychiatric: Alert, Oriented x3, transport 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 FIM Transfers Therapy Code Descriptions/Definitions Functional [place] Measure: 0=Not Assessed/NA 4=Minimal Assistance 1=Total Assistance 5=Supervision or Setup 2=Maximal Assistance 6=Modified [place] 3=Moderate Assistance 7=Complete IndependenceSCALE: Activities may be completed with or without assistive devices. 5-Wtdpugckfe-gvpflgo completes the activity by him/herself with no assistance from a helper. 5-Set-up or Clean-up Assistance-helper sets up or cleans up; patient completes activity. [place] assists only prior to or following the activity. 4-Supervision or Touching Assistance-helper provides verbal cues and/or touching/steadying and/or contact guard assistance as patient completes activity. Assistance may be provided throughout the activity or intermittently. 3-Partial/Moderate Assistance-helper does LESS THAN HALF the effort. [place] lifts, holds or supports trunk or limbs, but provides less than half the effort. 2-Substantial/Maximal Assistance-helper does MORE THAN HALF the effort. [place] lifts or holds trunk or limbs and provides more than half the effort. 9-Gedsaxony-vihokh does ALL the effort. Patient does none of the effort to complete the activity. Or, the assistance of 2 or more helpers is required for the patient to complete the activity. If activity was not attempted, code reason: 7-Patient Refused. 9-Not Applicable-not attempted and the patient did not perform the activity before the current illness, exacerbation or injury. 10-Not Attempted due to Environmental Limitations-(lack of equipment, weather restraints, etc.). 88-Not Attempted due to Medical Conditions or Safety Concerns. Roll Left to Right (QC): 3 Sit to Lying (QC): 3 Sit to Stand (QC): 3 Chair/Xmq-uv-Athpp Xfer(QC): 4 Car Transfer (QC): 88 Gait Training Does the Patient Walk?: Yes Distance: 10' Walk 10 feet (QC): 4 Walk 50 ft with 2 Turns(QC): 4 Walk 150 ft (QC): 88 Walking 10ft/uneven surface-QC: 88 Gait Persons Needed: 1 Gait Assistive Device: FWW Wheelchair Training Does the Pt Use a Wheelchair?: Yes Distance: 50'x2 Wheel 50 ft with 2 turns (QC): 3 Wheel 150 ft (QC): 88 Type of Wheelchair: Manual Stair Training 1 Step (curb) (QC): 88 4 Steps (QC): 88 12 Steps (QC): 88 Balance Picking up an Object (QC): 88 ADL-Treatment Eating (QC): 6 Oral Hygiene (QC): 6 Bathing Location: L Arm, R Arm, L Upper Leg, R Upper Leg, L Lower Leg (including foot), R Lower Leg (including foot), Chest, Abdomen, Buttocks, Perineal Area Shower/Bathe Self (QC): 4 Upper Body Dressing (QC): 5 Lower Body Dressing (QC): 2 On/Off Footwear (QC): 1 Toileting Hygiene (QC): 4 Toilet Transfer (QC): 4 Assessment/Plan Assessment and Plan Assess & Plan/Chief Complaint Assessment: S/p subtotal colectomy w/ileorectal anastamosis POD #24 Small bowel obstruction- Found on Xray (01-01-2022)- Resolved Hypokalemia Colon cancer T2DM HTN-OOC Dementia TBI at 22yo Plan: PT OT Monitor pain Monitor loose stools Monitor delirium 01/08/2022: Imodium Monitor cognitive changes 01/09/2022: Imodium Ultram 01/10/2022: Supportive care Expect labile confusion 01/10/2022: Restart DM med home dosing Monitor elevated BP 01/11/2022: DC Questran Increase BP meds with Hydralazine 01/12/2022: Monitor closely 01/13/2022: Monitor BP and sugar 01/14/2022: Supportive care Pain control 01/15/2022: Supportive care AL at DC (1) Generalized weakness Status: Acute (2) Colon cancer (3) GI bleed (4) Edema (5) Diabetes (6) Dementia Status: Acute JAMES BOWDEN DO Jan 15, 2022 05:56
[2022-01-15] MEDS: inSUlin ASPART (NovoLOG) 1 UNIT/0.01 ML (CHARGE PER UNIT) SC SCH ×4 (06:23→20:24)
[2022-01-15] MEDS: PANTOPRAZOLE 40 MG (PROTONIX) TAB PO SCH (06:24)
[2022-01-15 07:23] VITALS: BP 167/54
[2022-01-15] MEDS: ONDANSETRON 4 MG (ZOFRAN) ORAL DISSOLVE TAB PO PRN (08:06)
--- NOTE | 2022-01-15 09:01 | Speech Therapy Daily Note ---
Speech Daily Progress Note Subjective Date Seen by Provider: Jan 15, 2022 Time Seen by Provider: 08:30 The patient was seated upright in her recliner, awake and alert upon entrance to her room by the clinician. The patient greeted the clinician and was agreeable to participation in the cognitive linguistic treatment session. Objective Regardless of maximum visual cues and verbal prompting, the patient is not oriented to her location on this date. The patient was encouraged to assess her environment, including her clothing (the patient was in a hospital gown). The patient stated, "Well, that's a good question. It looks like I'm in my pajamas and a pair of shorts." The clinician provided maximum prompts to arrive at the conclusion that the patient was in a hospital gown. "Oh, then I guess I'm at the hospital." The patient was able to locate month, year and day of the week from the in room white board. The patient has a memory journal present in her room. A prompt (visual cue) is present on the white board for the patient to write in and use her memory journal as a daily reminder of her visitors, exercises, and tasks. Regardless of the visual cue, the patient does not record information into the memory journal. 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 The clinician has provided maximum verbal cues and visual aides with a lack of progression towards memory goals. At this time, the patient has not made progress with skilled speech pathology services for over a week's time period. The patient will be discharged from skilled speech pathology at this time. Assessment Assessment Current Status: Fair Progress Treatment Plan Discontinue ST Speech Short Term Goals Short Term Goals Short Term Goals 1. The patient will demonstrate accurate orientation over the span of three occasions with 100% accuracy, independently. Time Frame-STG: Three Days. Speech Long-Term Goals Sdc Teacher Goals 1. The patient will demonstrate improved cognitive linguistic function for safe discharge to the least restrictive environment. Speech-Plan Treatment Plan Speech Therapy Treatment Plan: Discontinue ST (Lack of progress towards cognitive goals.) Treatment Duration: Jan 15, 2022 Frequency: Modified Program (IRF) (Four to five times per week.) Estimated Hrs Per Day: .5 hour per day Rehab Potential: Guarded Safety Risks/Education Teaching Recipient: Patient Teaching Methods: Discussion Response to Teaching: Reinforcement Needed Education Topics Provided: Memory Strategies, Orientation Strategies Time Speech Therapy Time In: 08:30 Speech Therapy Time Out: 09:00 Total Billed Time: 30 Billed Treatment Time NANCY Evangelista [facility] ST Jan 15, 2022 09:00
[2022-01-15] MEDS: hydrALAZINE (APRESOLINE) 25 MG TAB PO SCH ×3 (10:46→20:29)
[2022-01-15] MEDS: MEMANTINE 10 MG (NAMENDA) TABLET PO SCH ×2 (10:46→20:29)
[2022-01-15] MEDS: LOPERAMIDE 2 MG (IMODIUM) TABLET PO SCH ×4 (10:47→20:29)
[2022-01-15] MEDS: lisINopril 20 MG (PRINIVIL) TABLET PO SCH (10:47)
[2022-01-15] MEDS: amLODIPine 5 MG (NORVASC) TAB PO SCH ×2 (10:47→20:29)
[2022-01-15] MEDS: ENOXAPARIN 40 MG/0.4 ML (LOVENOX) SYR SC SCH (10:48)
[2022-01-15] MEDS: polyethylene glycoL POWDER 17 GM (MIRALAX) PACK PO SCH ×2 (10:49→20:24)
[2022-01-15] MEDS: GLIMEPIRIDE 1 MG (AMARYL) TAB PO SCH ×3 (10:52→20:24)
[2022-01-15] MEDS: metFORMIN 500 MG (GLUCOPHAGE) TAB PO SCH ×3 (10:52→20:24)
--- NOTE | 2022-01-15 11:19 | Occupational Ther Daily Note ---
OT Current Status-Daily Note Subjective Pt asleep in recliner easily woke to name. Pt agrees to therapy. No c/o pain at this time. Pt continues to have inconsistencies with ADLs due to fear and cognitive issues. Mental Status/Objective Patient Orientation: Person, Confused, Place, Time, Situation Acute change in mental status: 0 Inattention: 0 Disorganized thinkin Altered level of consciousness: 0 ADL-Treatment Pt agrees to shower. Pt stands from recliner to FWW, min A. Pt ambulates to toilet using FWW, CGA. Pt transfers to toilet using grabbars, CGA. Pt refuses to lift hands off of FWW to cleanse buttocks due to anxiety/fear of falling, pt max A in toileting. Pt ambulated with FWW to shower bench, CGA. Pt SBA in shower, sitting on shower bench using long handled sponge though declines to cleanse buttocks. Pt SPT to WC, CGA. Pt independent in oral care/ personal hygiene sitting at sink. After set up pt donned UB clothing by self. After refusal to try AE, pt max A LB dressing and dependent for footwear. Pt ambulated from room to [facility] area using FWW, CGA. Pt ambulated from [facility] area back to room using FWW, CGA. Pt left sitting in recliner call light/ phone in reach. All needs met in room. Therapy Code Descriptions/Definitions Functional [place] Measure: 0=Not Assessed/NA 4=Minimal Assistance 1=Total Assistance 5=Supervision or Setup 2=Maximal Assistance 6=Modified [place] 3=Moderate Assistance 7=Complete IndependenceSCALE: Activities may be completed with or without assistive devices. 7-Zyxfztjbre-srtryrd completes the activity by him/herself with no assistance from a helper. 5-Set-up or Clean-up Assistance-helper sets up or cleans up; patient completes activity. [place] assists only prior to or following the activity. 4-Supervision or Touching Assistance-helper provides verbal cues and/or touching/steadying and/or contact guard assistance as patient completes activity. Assistance may be provided throughout the activity or intermittently. 3-Partial/Moderate Assistance-helper does LESS THAN HALF the effort. [place] lifts, holds or supports trunk or limbs, but provides less than half the effort. 2-Substantial/Maximal Assistance-helper does MORE THAN HALF the effort. [place] lifts or holds trunk or limbs and provides more than half the effort. 5-Vhuladcfm-aihqrr does ALL the effort. Patient does none of the effort to complete the activity. Or, the assistance of 2 or more helpers is required for the patient to complete the activity. If activity was not attempted, code reason: 7-Patient Refused. 9-Not Applicable-not attempted and the patient did not perform the activity before the current illness, exacerbation or injury. 10-Not Attempted due to Environmental Limitations-(lack of equipment, weather restraints, etc.). 88-Not Attempted due to Medical Conditions or Safety Concerns. Eating (QC): 6 (per clinical judgment) Oral Hygiene (QC): 6 Bathing Location: L Arm, R Arm, L Upper Leg, R Upper Leg, L Lower Leg (including foot), R Lower Leg (including foot), Chest, Abdomen, Buttocks, Perineal Area Shower/Bathe Self (QC): 4 (SBA) Upper Body Dressing (QC): 5 Lower Body Dressing (QC): 2 (Max A) On/Off Footwear: 1 Toileting Hygiene (QC): 2 (Max A) Toilet Transfer (QC): 4 Other Treatment Pt completed fine motor tasks with cognition component in standing focusing on dynamic standing balance and increasing activity tolerance. OT Short Term Goals Short Term Goals Time Frame: Jan 17, 2022 Eatin Oral hygiene: 5 Toileting hygiene: 3 Shower/bathe self: 3 Upper body dressin Lower body dressin Putting on/taking off footwear: 2 OT Half-Way Goals Half-Way Goals Time Frame: Jan 24, 2022 Acute change in mental status: 0 Inattention: 0 Disorganized thinkin Altered level of consciousness: 0 Eating (QC): 5 Oral Hygiene (QC): 5 Toileting Hygiene (QC): 4 Shower/Bathe Self (QC): 4 Upper Body Dressing (QC): 3 (set-up for shirt, min assist for bra) Lower Body Dressing (QC): 3 On/Off Footwear (QC): 2 Additional Goals: 1-Demonstrate ADL Tasks, 2-Verbalize Understanding, 3- ImproveStrength/Pat 1=Demonstrate adherence to instructed precautions during ADL tasks. 2=Patient will verbalize/demonstrate understanding of assistive devices/modifications for ADL. 3=Patient will improve strength/tolerance for activity to enable patient to perform ADL's. OT Education/Plan Problem List/Assessment Assessment: Decreased Activ Tolerance, Decreased Safety Aware, Decreased UE Strength, Impaired Cognition, Impaired Coordination, Impaired Funct Balance, Impaired Self-Care Skills Discharge Recommendations Plan/Recommendations: Continue POC Treatment Plan/Plan of Care Patient would benefit from OT for education, treatment and training to promote independence in ADL's, mobility, safety and/or upper extremity function for ADL's. Plan of Care: ADL Retraining, Caregiver Training, Cognitive Retraining, Functional Mobility, Group Exercise/Act as Ind, UE Funct Exercise/Act, UE Neuromus Re-Ed/Coord, W/C Management Training Treatment Duration: Jan 24, 2022 Frequency: At least 5 of 7 days/Wk (IRF) Estimated Hrs Per Day: 1.5 hours per day (60-75 minutes per day) Agreement: Yes Rehab Potential: Guarded Time/GCodes Start Time: 09:00 Stop Time: 10:15 Total Time Billed (hr/min): 75 Billed Treatment Time 1 visit ADL 4 (60 min) EX 1 (15 min) BLAN[place] MO Jan 15, 2022 11:19
--- NOTE | 2022-01-15 11:52 | Physical Therapy Daily Note ---
PT Daily Note-Current Subjective Pt. sitting in recliner initially declines Rx, "No there wont be any walking today, Im not doing it" Pt. agrees with encouragement. Pt. c/o pain in bilat knees at 5/10 Pain Numeric Pain Scale: 5-Moderate Pain Location: Left (bilat) Location Body Site: Knee Pain Description: Pressure Section J - Health Conditions 1. Rarely or not at all 2. Occasionally 3. Frequently 4. Almost constantly 8. Unable to answer Pain Effect on Sleep: 0 Pain Interference with Therapy: 4 Pain Interference w/Day-to-Day: 4 Mental Status Patient Orientation: Confused Transfers SCALE: Activities may be completed with or without assistive devices. 0-Hsegtviwta-eauhgpn completes the activity by him/herself with no assistance from a helper. 5-Set-up or Clean-up Assistance-helper sets up or cleans up; patient completes activity. [place] assists only prior to or following the activity. 4-Supervision or Touching Assistance-helper provides verbal cues and/or touching/steadying and/or contact guard assistance as patient completes activity. Assistance may be provided throughout the activity or intermittently. 3-Partial/Moderate Assistance-helper does LESS THAN HALF the effort. [place] lifts, holds or supports trunk or limbs, but provides less than half the effort. 2-Substantial/Maximal Assistance-helper does MORE THAN HALF the effort. [place] lifts or holds trunk or limbs and provides more than half the effort. 3-Nuhxggtrq-tpnxvp does ALL the effort. Patient does none of the effort to complete the activity. Or, the assistance of 2 or more helpers is required for the patient to complete the activity. If activity was not attempted, code reason: 7-Patient Refused. 9-Not Applicable-not attempted and the patient did not perform the activity before the current illness, exacerbation or injury. 10-Not Attempted due to Environmental Limitations-(lack of equipment, weather restraints, etc.). 88-Not Attempted due to Medical Conditions or Safety Concerns. Sit to Stand (QC): 3 Chair/Wwv-fi-Ynpeu Xfer(QC): 3 Gait Training Does the Patient Walk?: Yes Walk 10 feet (QC): 4 Gait Persons Needed: 1 Gait Assistive Device: FWW very small steps, heavy wt bearing on FWW, w/c definitely needed to follow up, knees in flexion approx 20 deg bilat during gait. needs constant encouragement to continue, SPTs x 3, gait 10 ft x 3 with pt. stating each trial that she needs to sit Wheelchair Training Does the Pt Use a Wheelchair?: Yes Wheel 50 ft with 2 turns (QC): 3 Type of Wheelchair: Manual needs constant instruction and hand over hand direction for w/c mob, braking etc, as well as to use feet Exercises Seated Therapy Exercises: Ankle pumps, Sit to stand, Long arc quads, Hip flexion Seated Reps: 8 NuStep Minutes: 10 NuStep Workload: 2 Assessment Current Status: Poor Progress pt. conts dependent for mob and confused at times PT Short Term Goals Short Term Goals Time Frame: Jan 14, 2022 Roll Left & Right: 3 (Fawad) Sit to lyin (Fawad) Lying to sitting on side of be: 3 (Fawad) Sit to stand: 3 (Fawad) Chair/vwe-qe-ptfkf transfer: 4 (CGA) Walk 10 feet: 4 (CGA) PT Paraplanner Goals Paraplanner Goals PT Paraplanner Goals Time Frame: Jan 28, 2022 Roll Left & Right (QC): 4 (SBA) Sit to Lying (QC): 4 (SBA) Lying-Sitting on Side/Bed(QC): 4 (SBA) Sit to Stand (QC): 4 (CGA) Chair/Uqv-hm-Eabwa Xfer(QC): 4 (SBA) Toilet Transfer (QC): 4 (SBA) Car Transfer (QC): 4 (CGA) Does the Patient Walk: Yes Walk 10 feet (QC): 4 (SBA) Walk 50ft with 2 Turns (QC): 4 (SBA) Walk 150 ft (QC): 4 (SBA) Walking 10ft on Uneven Surface: 4 (CGA) 1 Step (curb) (QC): 4 (CGA) 4 Steps (QC): 4 (CGA) 12 Steps (QC): 88 Picking up an Object (QC): 4 (CGA) Wheel 50 feet with 2 turns (QC: 9 Wheel 150 feet: 9 PT Plan Treatment/Plan Treatment Plan: Continue Plan of Care Treatment Plan: Bed Mobility, Education, Functional Activity Pat, Functional Strength, Group Therapy, Gait, Safety, Therapeutic Exercise, Transfers Treatment Duration: Jan 28, 2022 Frequency: At least 5 of 7 days/Wk (IRF) Estimated Hrs Per Day: 1.5 hours per day Patient and/or Family Agrees t: Yes Safety Risks/Education Patient Education: Gait Training, Transfer Techniques, Correct Positioning, W/C Management, Disease Process, Safety Issues Teaching Recipient: Patient Teaching Methods: Demonstration Response to Teaching: Reinforcement Needed Time/GCodes Time In: 1045 Time Out: 1200 Total Billed Treatment Time: 75 Total Billed Treatment 1,EX30m,GT25m,WC20m SCOTTIE MANCERA BUSINESS SYSTEMS CONSULTANT Jan 15, 2022 11:52
--- NOTE | 2022-01-15 12:42 | Therapy Team Discharge Summary ---
Therapy Discharge Summary Discharge Recommendations Date of Discharge Physical Therapy Roll Left to Right (QC): 3 Sit to Lying (QC): 3 Lying to Sitting/Side of Bed(Q: 1 Sit to Stand (QC): 3 Chair/Cte-pg-Jkreq Xfer(QC): 3 Toilet Transfer (QC): 4 Car Transfer (QC): 88 Does the Patient Walk: Yes Mode of Locomotion: Both Anticipated Mode of Locomotion: Walk Walk 10 feet (QC): 4 Walk 50 ft with 2 Turns(QC): 4 Walk 150 ft (QC): 88 Walking 10ft on uneven surface: 88 Distance: 3'x3 Gait Assistive Device: FWW Does the Pt Use a Wheelchair: Yes Wheelchair Distance: 50'x2 Wheel 50 ft with 2 turns (QC): 3 Wheel 150 ft (QC): 88 Type of Wheelchair: Manual 1 Step (curb) (QC): 88 4 Steps (QC): 88 12 Steps (QC): 88 Balance Sitting Static: Fair Balance Sitting Dynamic: Fair Balance-Standing Static: Poor Picking up an Object (QC): 88 Occupational Therapy Decreased Activ Tolerance, Decreased Safety Aware, Decreased UE Strength, Impaired Cognition, Impaired Coordination, Impaired Funct Balance, Impaired Self-Care Skills Eating (QC): 6 (per clinical judgment) Oral Hygiene (QC): 6 Shower/Bathe Self (QC): 4 (SBA) Upper Body Dressing (QC): 5 Lower Body Dressing (QC): 2 (Max A) On/Off Footwear (QC): 1 Toileting Hygiene (QC): 2 (Max A) Speech-Language Pathology The patient does display decreased confusion overall, as last week she was leaving 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 At this time, the patient has not made progress with skilled speech pathology services for over a week's time period. The patient will be discharged from skilled speech pathology at this time. PT Jail Goals Pocket Creaser Goals PT Pocket Creaser Goals Time Frame: Jan 28, 2022 PT OT Pain Eval : Comment: pt. cocnsistently c/o intense pain in stance and TRF but always r ates pain Scoring Section J - Health Conditions 1. Rarely or not at all 2. Occasionally 3. Frequently 4. Almost constantly 8. Unable to answer Roll Left to Right (QC): 4 (SBA) Sit to Lying (QC): 4 (SBA) Lying-Sitting on Side/Bed(QC): 4 (SBA) Sit to Stand (QC): 4 (CGA) Chair/Hym-lu-Egose Xfer(QC): 4 (SBA) Car Transfer (QC): 4 (CGA) Does the Patient Walk: Yes Walk 10 feet (QC): 4 (SBA) Walk 10ft-Uneven Surface(QC): 4 (CGA) Walk 50ft with 2 Turns (QC): 4 (SBA) Walk 150 ft (QC): 4 (SBA) Wheel 50 feet with 2 turns (QC: 9 1 Step (curb) (QC): 4 (CGA) 4 Steps (QC): 4 (CGA) 12 Steps (QC): 88 Picking up an Object (QC): 4 (CGA) OT Pocket Creaser Goals Pocket Creaser Goals Time Frame: Jan 24, 2022 Acute change in mental status: 0 Inattention: 0 Disorganized thinkin Altered level of consciousness: 0 Eating (QC): 5 Oral Hygiene (QC): 5 Toileting Hygiene (QC): 4 Shower/Bathe Self (QC): 4 Upper Body Dressing (QC): 3 (set-up for shirt, min assist for bra) Lower Body Dressing (QC): 3 On/Off Footwear (QC): 2 Additional Goals: 1-Demonstrate ADL Tasks, 2-Verbalize Understanding, 3- ImproveStrength/Pat 1=Demonstrate adherence to instructed precautions during ADL tasks. 2=Patient will verbalize/demonstrate understanding of assistive devices/petar fications for ADL. 3=Patient will improve strength/tolerance for activity to enable patient to perform ADL's. Speech Pocket Creaser Goals Pocket Creaser Goals 1. The patient will demonstrate improved cognitive linguistic function for safe discharge to the least restrictive environment. NOT MET. 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 The clinician has provided maximum verbal cues and visual aides with a lack of progression towards memory goals. At this time, the patient has not made progress with skilled speech pathology services for over a week's time period. The patient will be discharged from skilled speech pathology at this time. The clinician recommends discharge to assisted living versus SNF dependent on her physical strengthening over the following week. RHIANNA HANSON Jan 15, 2022 12:42
[2022-01-15 12:49] VITALS: BP 155/70
--- NOTE | 2022-01-15 15:17 | Progress Note ---
DARIN ESPANA 01/15/22 1517: Progress Note CC: Debility following colon cancer subtotal colectomy HPI: This is a 81yoWF clinic patient of Dr. Acosta who presented to ARU following a lengthy course on 4th floor swing bed after ICU transfer following a subtotal colectomy by Dr. Parks for colon cancer. Patient did have SBO requiring NGT which resolved within 4 days. She has dementia with h/o TBI making it difficult to follow tasks and increase motivation. PLOF was walking with a walker with assisting ADL's and now she is requiring 1-2 transfers with ambulation and confusion comes and goes. Patient is sitting comfortably in recliner when I visited. Reports she is doing great today and continuing to make improvements. Was having some nausea, zofran given. Is having bowel movements, urinating, and pain is well controlled. Today will provide OMM to patient for assistance with recovery. ROS: General: Fatigue, Malaise Neurological: No confusion today Exam: General Appearance: No Apparent Distress, Chronically ill, Obese HEENT: PERRL/EOMI Respiratory: Chest Non Tender, Lungs Clear, Normal Breath Sounds, No Accessory Muscle Use, No Respiratory Distress Cardiovascular: RRR, No Edema, No Gallop, No JVD Gastrointestinal: Normal Bowel Sounds, No Organomegaly, No Pulsatile Mass, Non Tender, Soft Extremity: Normal Inspection, Non Tender Neurologic/Psychiatric: Alert, Oriented x3, Normal Affect Skin: Normal Color, Warm/Dry Lymphatic: No Adenopathy Assessment: S/p subtotal colectomy w/ileorectal anastamosis POD #21 Small bowel obstruction- Found on Xray (01-01-2022)- Resolved Hypokalemia Colon cancer T2DM HTN-OOC Dementia TBI at 22yo 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 I reviewed and verified all information documented by the medical student and made modifications to such information, when appropriate. I personally performed the physical exam and medical decision making. Mayra Acosta, Jan 15, 2022,21:13 DARIN ESPANA Jan 15, 2022 15:17 MAYRA ACOSTA DO Jan 15, 2022 21:13
[2022-01-15 20:47] VITALS: BP 149/67
--- NOTE | 2022-01-16 05:42 | PM&R Progress Note ---
Subjective HPI/CC On Admission Date Seen by Provider: Jan 16, 2022 Time Seen by Provider: 12:30 Subjective/Events-last exam 01/16/2022: Patient doing pretty well Discharge is planned to a skilled care facility We will attempt to add Lomotil twice a day as scheduled to help decrease stool frequency 01/15/2022: Pt is doing a little better Nausea, will be given Zofran Imodium will be given scheduled, that is helping loose stools from subtotal colectomy 01/14/2022: Pt is doing about the same Having loose stools, will respond to Imodium Podiatry consult Assisted living will likely be where she needs to go 01/13/2022: Pt is doing pretty well No other concerns Labs reviewed No other major issues 01/12/2022: Doing well Confusion at times Pain at times Imodium working well No other issues 01/11/2022: Doing well Improved cognition today Sleeps a lot CRYSTAL Lopez since she refuses it Imodium scheduled QID is working well for her and it is safe 01/10/2022: Doing about the same Weakness noted by therapy Confusion is labile No falls 01/09/2022: Doing well Ultram started for the pain No falls Improved cognition 01/09/2022: Patient doing better Pain improved No falls Cognition is labile visits often Review of Systems General: Fatigue, Malaise Neurological: Confusion Objective Exam Vital Signs Vital Signs Date Time Temp Pulse Resp B/P (MAP) Pulse Ox O2 Delivery O2 Flow Rate FiO2 01/16/22 21:45 Nasal Cannula 2.00 01/16/22 20:30 36.2 106 20 130/56 (80) 91 01/14/22 08:09 21 Capillary Refill : General Appearance: No Apparent Distress, Chronically ill, Obese HEENT: PERRL/EOMI, Normal ENT Inspection Neck: Normal Inspection, Non Tender, Supple Respiratory: Chest Non Tender, Lungs Clear, Normal Breath Sounds, No Accessory Muscle Use, No Respiratory Distress Cardiovascular: Regular Rate, Rhythm, No Edema, No Gallop, No JVD Gastrointestinal: Normal Bowel Sounds, No Organomegaly, No Pulsatile Mass, Non Tender, Soft Back: Normal Inspection, No CVA Tenderness, No Vertebral Tenderness Extremity: Normal Inspection, Non Tender Neurologic/Psychiatric: Alert, Oriented x3, hris developer II-XII Norm as Tested, Depressed Affect, Disoriented Skin: Normal Color, Warm/Dry Lymphatic: No Adenopathy Results/Procedures Lab Patient resulted labs reviewed. FIM Transfers Therapy Code Descriptions/Definitions Functional [place] Measure: 0=Not Assessed/NA 4=Minimal Assistance 1=Total Assistance 5=Supervision or Setup 2=Maximal Assistance 6=Modified [place] 3=Moderate Assistance 7=Complete IndependenceSCALE: Activities may be completed with or without assistive devices. 6-Rcbwtcfxlq-ywkbtbc completes the activity by him/herself with no assistance from a helper. 5-Set-up or Clean-up Assistance-helper sets up or cleans up; patient completes activity. [place] assists only prior to or following the activity. 4-Supervision or Touching Assistance-helper provides verbal cues and/or touching/steadying and/or contact guard assistance as patient completes activity. Assistance may be provided throughout the activity or intermittently. 3-Partial/Moderate Assistance-helper does LESS THAN HALF the effort. [place] lifts, holds or supports trunk or limbs, but provides less than half the effort. 2-Substantial/Maximal Assistance-helper does MORE THAN HALF the effort. [place] lifts or holds trunk or limbs and provides more than half the effort. 6-Hzvqgupbe-avgnlb does ALL the effort. Patient does none of the effort to complete the activity. Or, the assistance of 2 or more helpers is required for the patient to complete the activity. If activity was not attempted, code reason: 7-Patient Refused. 9-Not Applicable-not attempted and the patient did not perform the activity before the current illness, exacerbation or injury. 10-Not Attempted due to Environmental Limitations-(lack of equipment, weather restraints, etc.). 88-Not Attempted due to Medical Conditions or Safety Concerns. Roll Left to Right (QC): 3 Sit to Lying (QC): 3 Sit to Stand (QC): 3 Chair/Bsd-mh-Gexon Xfer(QC): 3 Car Transfer (QC): 88 Gait Training Does the Patient Walk?: Yes Distance: 10' Walk 10 feet (QC): 4 Walk 50 ft with 2 Turns(QC): 4 Walk 150 ft (QC): 88 Walking 10ft/uneven surface-QC: 88 Gait Persons Needed: 1 Gait Assistive Device: FWW Wheelchair Training Does the Pt Use a Wheelchair?: Yes Distance: 50'x2 Wheel 50 ft with 2 turns (QC): 3 Wheel 150 ft (QC): 88 Type of Wheelchair: Manual Stair Training 1 Step (curb) (QC): 88 4 Steps (QC): 88 12 Steps (QC): 88 Balance Picking up an Object (QC): 88 ADL-Treatment Eating (QC): 6 (per clinical judgment) Oral Hygiene (QC): 6 Bathing Location: L Arm, R Arm, L Upper Leg, R Upper Leg, L Lower Leg (including foot), R Lower Leg (including foot), Chest, Abdomen, Buttocks, Perineal Area Shower/Bathe Self (QC): 4 (SBA) Upper Body Dressing (QC): 5 Lower Body Dressing (QC): 2 (Max A) On/Off Footwear (QC): 1 Toileting Hygiene (QC): 2 (Max A) Toilet Transfer (QC): 4 Assessment/Plan Assessment and Plan Assess & Plan/Chief Complaint Assessment: S/p subtotal colectomy w/ileorectal anastamosis POD #26 Small bowel obstruction- Found on Xray (01-01-2022)- Resolved Hypokalemia Colon cancer T2DM HTN-OOC Dementia TBI at 22yo Plan: PT OT Monitor pain Monitor loose stools Monitor delirium 01/08/2022: Imodium Monitor cognitive changes 01/09/2022: Imodium Ultram 01/10/2022: Supportive care Expect labile confusion 01/10/2022: Restart DM med home dosing Monitor elevated BP 01/11/2022: DC Questran Increase BP meds with Hydralazine 01/12/2022: Monitor closely 01/13/2022: Monitor BP and sugar 01/14/2022: Supportive care Pain control 01/15/2022: Supportive care AL at DC 01/16/2022: Add Lomotil to twice a day scheduled for constipation (1) Generalized weakness Status: Acute (2) Colon cancer (3) GI bleed (4) Edema (5) Diabetes (6) Dementia Status: Acute JAMES BOWDEN DO Jan 16, 2022 05:42
[2022-01-16] MEDS: inSUlin ASPART (NovoLOG) 1 UNIT/0.01 ML (CHARGE PER UNIT) SC SCH ×4 (05:50→21:22)
[2022-01-16] MEDS: PANTOPRAZOLE 40 MG (PROTONIX) TAB PO SCH (05:52)
[2022-01-16 07:30] VITALS: BP 162/70
[2022-01-16 07:52] VITALS: BP 162/70
[2022-01-16] MEDS: MEMANTINE 10 MG (NAMENDA) TABLET PO SCH ×2 (08:23→21:21)
[2022-01-16] MEDS: hydrALAZINE (APRESOLINE) 25 MG TAB PO SCH ×3 (08:23→21:21)
[2022-01-16] MEDS: amLODIPine 5 MG (NORVASC) TAB PO SCH ×2 (08:23→21:22)
[2022-01-16] MEDS: lisINopril 20 MG (PRINIVIL) TABLET PO SCH (08:23)
[2022-01-16] MEDS: ENOXAPARIN 40 MG/0.4 ML (LOVENOX) SYR SC SCH (08:23)
[2022-01-16] MEDS: LOPERAMIDE 2 MG (IMODIUM) TABLET PO SCH ×4 (08:24→21:21)
[2022-01-16] MEDS: polyethylene glycoL POWDER 17 GM (MIRALAX) PACK PO SCH ×2 (08:24→21:00)
--- NOTE | 2022-01-16 10:29 | Occupational Ther Daily Note ---
OT Current Status-Daily Note Subjective Pt alert in recliner. Pt agrees to therapy. Pt complains of stomach pains. Nrsg placed O2 on pt prior to OT session then VALENTINE monitored pt's O2 levels during showering, O2% remained b/t 93-96% then while toileting dropped to 86% and O2 put back on at 2L. Mental Status/Objective Patient Orientation: Person, Confused, Place, Time, Situation Attachments: Oxygen (2L) Acute change in mental status: 0 Inattention: 0 Disorganized thinkin Altered level of consciousness: 0 ADL-Treatment Pt incontinent in recliner. Pt demonstrating increased confusion today. Pt ambulated to bathroom using FWW, CGA. Pt transferred to toilet using grabbars, CGA. Pt max A in toilet hygiene. Pt agrees to shower. Pt ambulated with FWW to shower bench using grabbars, CGA. Pt required multiple verbal cues to continue shower. Pt confused and asked where she had cleaned.Pt continues to be inconsistent in skill level. Pt transferred from shower bench to , CGA. Pt completed oral care sitting at sink. Pt donned UB clothing by self after set up. Pt max A in donning LB clothing due to refusal to use AE. Pt dependent in footwear. Pt completed toileting 5x through the duration of OT session. Nrsg notified that pt has had loose stools, nrsg brought meds. Pt ambulated to recliner using FWW, CGA. Pt sitting in recliner call light/ phone in reach. All needs met in room. Therapy Code Descriptions/Definitions Functional [place] Measure: 0=Not Assessed/NA 4=Minimal Assistance 1=Total Assistance 5=Supervision or Setup 2=Maximal Assistance 6=Modified [place] 3=Moderate Assistance 7=Complete IndependenceSCALE: Activities may be completed with or without assistive devices. 5-Stykpmcndy-vixsuqd completes the activity by him/herself with no assistance from a helper. 5-Set-up or Clean-up Assistance-helper sets up or cleans up; patient completes activity. [place] assists only prior to or following the activity. 4-Supervision or Touching Assistance-helper provides verbal cues and/or touching/steadying and/or contact guard assistance as patient completes activity. Assistance may be provided throughout the activity or intermittently. 3-Partial/Moderate Assistance-helper does LESS THAN HALF the effort. [place] lifts, holds or supports trunk or limbs, but provides less than half the effort. 2-Substantial/Maximal Assistance-helper does MORE THAN HALF the effort. [place] lifts or holds trunk or limbs and provides more than half the effort. 4-Vkwflteye-qqzasz does ALL the effort. Patient does none of the effort to complete the activity. Or, the assistance of 2 or more helpers is required for the patient to complete the activity. If activity was not attempted, code reason: 7-Patient Refused. 9-Not Applicable-not attempted and the patient did not perform the activity before the current illness, exacerbation or injury. 10-Not Attempted due to Environmental Limitations-(lack of equipment, weather restraints, etc.). 88-Not Attempted due to Medical Conditions or Safety Concerns. Oral Hygiene (QC): 6 Bathing Location: L Arm, R Arm, L Upper Leg, R Upper Leg, L Lower Leg (including foot), R Lower Leg (including foot), Chest, Abdomen, Buttocks, Perineal Area Shower/Bathe Self (QC): 3 Upper Body Dressing (QC): 5 Lower Body Dressing (QC): 2 On/Off Footwear: 1 Toileting Hygiene (QC): 2 Toilet Transfer (QC): 4 OT Short Term Goals Short Term Goals Time Frame: Jan 17, 2022 Eatin Oral hygiene: 5 Toileting hygiene: 3 Shower/bathe self: 3 Upper body dressin Lower body dressin Putting on/taking off footwear: 2 OT Hvac Project Engineer Goals Group Home Goals Time Frame: Jan 24, 2022 Acute change in mental status: 0 Inattention: 0 Disorganized thinkin Altered level of consciousness: 0 Eating (QC): 5 Oral Hygiene (QC): 5 Toileting Hygiene (QC): 4 Shower/Bathe Self (QC): 4 Upper Body Dressing (QC): 3 (set-up for shirt, min assist for bra) Lower Body Dressing (QC): 3 On/Off Footwear (QC): 2 Additional Goals: 1-Demonstrate ADL Tasks, 2-Verbalize Understanding, 3- ImproveStrength/Pat 1=Demonstrate adherence to instructed precautions during ADL tasks. 2=Patient will verbalize/demonstrate understanding of assistive devices/modifications for ADL. 3=Patient will improve strength/tolerance for activity to enable patient to perform ADL's. OT Education/Plan Problem List/Assessment Assessment: Decreased Activ Tolerance, Decreased Safety Aware, Decreased UE Strength, Impaired Cognition, Impaired Coordination, Impaired Funct Balance, Impaired Self-Care Skills Discharge Recommendations Plan/Recommendations: Continue POC Treatment Plan/Plan of Care Patient would benefit from OT for education, treatment and training to promote independence in ADL's, mobility, safety and/or upper extremity function for ADL's. Plan of Care: ADL Retraining, Caregiver Training, Cognitive Retraining, Functional Mobility, Group Exercise/Act as Ind, UE Funct Exercise/Act, UE Neuromus Re-Ed/Coord, W/C Management Training Treatment Duration: Jan 24, 2022 Frequency: At least 5 of 7 days/Wk (IRF) Estimated Hrs Per Day: 1.5 hours per day (60-75 minutes per day) Agreement: Yes Rehab Potential: Guarded Time/GCodes Start Time: 07:30 Stop Time: 09:00 Total Time Billed (hr/min): 90 Billed Treatment Time 1 visit ADL 6 (90 min) BLANCA MO Jan 16, 2022 10:29
[2022-01-16] MEDS: HYDROcodone/APAP 5 MG/325 MG (LORTAB) TAB PO PRN (10:53)
--- NOTE | 2022-01-16 13:24 | Physical Therapy Daily Note ---
PT Daily Note-Current Subjective Upon entering room pt. in recliner with present. Pt. with grimace on face c/o she has abdominal pain and then lifts the emesis basin to her mouth and states she is also nauseous. shares his concern. This SUPPORT GROUP MANAGER retieved cold damp cloth and consulted nursing who has dispensed an med for pts discomfort. After some time passed pt. states she feels a little better and agrees to LE ex and TRFs Pain Numeric Pain Scale: 4 Location: Medial, Left Location Body Site: Abdomen Pain Description: Stabbing Section J - Health Conditions 1. Rarely or not at all 2. Occasionally 3. Frequently 4. Almost constantly 8. Unable to answer Pain Effect on Sleep: 0 Pain Interference with Therapy: 4 Pain Interference w/Day-to-Day: 4 Appearance pt with grimace and eyes closed at times during RX Mental Status Patient Orientation: Confused Attachments: Oxygen (2l) Transfers SCALE: Activities may be completed with or without assistive devices. 1-Mlxcktyhyb-bqsztzd completes the activity by him/herself with no assistance from a helper. 5-Set-up or Clean-up Assistance-helper sets up or cleans up; patient completes activity. [place] assists only prior to or following the activity. 4-Supervision or Touching Assistance-helper provides verbal cues and/or touching/steadying and/or contact guard assistance as patient completes activity. Assistance may be provided throughout the activity or intermittently. 3-Partial/Moderate Assistance-helper does LESS THAN HALF the effort. [place] lifts, holds or supports trunk or limbs, but provides less than half the effort. 2-Substantial/Maximal Assistance-helper does MORE THAN HALF the effort. [place] lifts or holds trunk or limbs and provides more than half the effort. 2-Cdwekpjre-zebcrr does ALL the effort. Patient does none of the effort to complete the activity. Or, the assistance of 2 or more helpers is required for the patient to complete the activity. If activity was not attempted, code reason: 7-Patient Refused. 9-Not Applicable-not attempted and the patient did not perform the activity before the current illness, exacerbation or injury. 10-Not Attempted due to Environmental Limitations-(lack of equipment, weather restraints, etc.). 88-Not Attempted due to Medical Conditions or Safety Concerns. Sit to Stand (QC): 3 pt stood x 3 at chair, 2 trials at mod assist with this SUPPORT GROUP MANAGER doing less than half of effort, 1 trial with pt performing at min assist, pt. needing min assist Exercises Supine Ex: Ankle pumps, Quad Set, Glut sets, Heel Slides, Straight leg raise, Hip abd/add Supine Reps: 15 Seated Therapy Exercises: Ankle pumps, Sit to stand, Long arc quads, Hip abd/add Seated Reps: 5 Treatments therex, funct act Assessment Current Status: Fair Progress limited by discomfort in abdomen and nausea, pt. on O2 at 2L as nursing reports her O2 had declined to 80s earlier today, during Rx pts O2 92 to 95% with activity PT Short Term Goals Short Term Goals Time Frame: Jan 14, 2022 Roll Left & Right: 3 ([place]) Sit to lyin ([place]) Lying to sitting on side of be: 3 ([place]) Sit to stand: 3 ([place]) Chair/cst-ip-vbkrm transfer: 4 (CGA) Walk 10 feet: 4 (CGA) PT Communications Agent Goals [facility] Goals PT Communications Agent Goals Time Frame: Jan 28, 2022 Roll Left & Right (QC): 4 (SBA) Sit to Lying (QC): 4 (SBA) Lying-Sitting on Side/Bed(QC): 4 (SBA) Sit to Stand (QC): 4 (CGA) Chair/Fsq-aw-Tuzok Xfer(QC): 4 (SBA) Toilet Transfer (QC): 4 (SBA) Car Transfer (QC): 4 (CGA) Does the Patient Walk: Yes Walk 10 feet (QC): 4 (SBA) Walk 50ft with 2 Turns (QC): 4 (SBA) Walk 150 ft (QC): 4 (SBA) Walking 10ft on Uneven Surface: 4 (CGA) 1 Step (curb) (QC): 4 (CGA) 4 Steps (QC): 4 (CGA) 12 Steps (QC): 88 Picking up an Object (QC): 4 (CGA) Wheel 50 feet with 2 turns (QC: 9 Wheel 150 feet: 9 PT Plan Treatment/Plan Treatment Plan: Continue Plan of Care Treatment Plan: Bed Mobility, Education, Functional Activity Pat, Functional Strength, Group Therapy, Gait, Safety, Therapeutic Exercise, Transfers Treatment Duration: Jan 28, 2022 Frequency: At least 5 of 7 days/Wk (IRF) Estimated Hrs Per Day: 1.5 hours per day Patient and/or Family Agrees t: Yes Safety Risks/Education Patient Education: Transfer Techniques, Correct Positioning, Safety Issues Teaching Recipient: Patient Teaching Methods: Demonstration, Discussion Response to Teaching: Unable to Return Demonstration, Reinforcement Needed Time/GCodes Time In: 1100 Time Out: 1200 Total Billed Treatment Time: 60 Total Billed Treatment 1,EX25m,FA35m SCOTTIE MANCERA SUPPORT GROUP MANAGER Jan 16, 2022 13:24
[2022-01-16] MEDS: DIPHENOXYLATE/ATROPINE 2.5MG/0.025MG (LOMOTIL) TAB PO SCH ×2 (14:30→21:21)
--- NOTE | 2022-01-16 14:30 | Physical Therapy Daily Note ---
PT Daily Note-Current Subjective Pt. up in recliner, agrees to Rx after much encouragement. No particular c/o pain, just fatigue Pain Location: No Pain Reported Section J - Health Conditions 1. Rarely or not at all 2. Occasionally 3. Frequently 4. Almost constantly 8. Unable to answer Pain Effect on Sleep: 0 Pain Interference with Therapy: 3 Pain Interference w/Day-to-Day: 3 Mental Status Patient Orientation: Confused Attachments: Oxygen (2L) Transfers SCALE: Activities may be completed with or without assistive devices. 1-Ottbmiifpc-eejufeo completes the activity by him/herself with no assistance from a helper. 5-Set-up or Clean-up Assistance-helper sets up or cleans up; patient completes activity. [place] assists only prior to or following the activity. 4-Supervision or Touching Assistance-helper provides verbal cues and/or touching/steadying and/or contact guard assistance as patient completes activity. Assistance may be provided throughout the activity or intermittently. 3-Partial/Moderate Assistance-helper does LESS THAN HALF the effort. [place] lifts, holds or supports trunk or limbs, but provides less than half the effort. 2-Substantial/Maximal Assistance-helper does MORE THAN HALF the effort. [place] lifts or holds trunk or limbs and provides more than half the effort. 6-Lgsftpgty-hhbcoo does ALL the effort. Patient does none of the effort to complete the activity. Or, the assistance of 2 or more helpers is required for the patient to complete the activity. If activity was not attempted, code reason: 7-Patient Refused. 9-Not Applicable-not attempted and the patient did not perform the activity before the current illness, exacerbation or injury. 10-Not Attempted due to Environmental Limitations-(lack of equipment, weather restraints, etc.). 88-Not Attempted due to Medical Conditions or Safety Concerns. Roll Left & Right (QC): 6 Sit to Lying (QC): 4 Sit to Stand (QC): 4 Chair/Mab-yz-Epfve Xfer(QC): 4 Toilet Transfer (QC): 4 seat height contributes to ease of stance, pt. used rocking momentum to come to stance from recliner requiring 4 attempts with min assist. sit to stnd at toilet also increased height CGA. sit to sp at bed rquired min assist RLE into bed and max effort for pt. Gait Training Does the Patient Walk?: Yes Walk 10 feet (QC): 4 Gait Persons Needed: 1 Gait Assistive Device: FWW very small steps, positions self far behind FWW and needs frequent instructions to reposition. knees flex and melt occas and pt. needs instruction to stand tall "power up" Treatments TRFs, gait, incont BM and urine in brief, needed cleaned and changed Assessment Current Status: Good Progress better tolerance for Rx this PM, fatigued but completed task PT Short Term Goals Short Term Goals Time Frame: Jan 14, 2022 Roll Left & Right: 3 ([place]) Sit to lyin ([place]) Lying to sitting on side of be: 3 ([place]) Sit to stand: 3 ([place]) Chair/mrn-pg-czzdz transfer: 4 (CGA) Walk 10 feet: 4 (CGA) PT Fpc Goals [employer] Goals PT Fpc Goals Time Frame: Jan 28, 2022 Roll Left & Right (QC): 4 (SBA) Sit to Lying (QC): 4 (SBA) Lying-Sitting on Side/Bed(QC): 4 (SBA) Sit to Stand (QC): 4 (CGA) Chair/Eby-mk-Wqfdn Xfer(QC): 4 (SBA) Toilet Transfer (QC): 4 (SBA) Car Transfer (QC): 4 (CGA) Does the Patient Walk: Yes Walk 10 feet (QC): 4 (SBA) Walk 50ft with 2 Turns (QC): 4 (SBA) Walk 150 ft (QC): 4 (SBA) Walking 10ft on Uneven Surface: 4 (CGA) 1 Step (curb) (QC): 4 (CGA) 4 Steps (QC): 4 (CGA) 12 Steps (QC): 88 Picking up an Object (QC): 4 (CGA) Wheel 50 feet with 2 turns (QC: 9 Wheel 150 feet: 9 PT Plan Treatment/Plan Treatment Plan: Continue Plan of Care Treatment Plan: Bed Mobility, Education, Functional Activity Pat, Functional Strength, Group Therapy, Gait, Safety, Therapeutic Exercise, Transfers Treatment Duration: Jan 28, 2022 Frequency: At least 5 of 7 days/Wk (IRF) Estimated Hrs Per Day: 1.5 hours per day Patient and/or Family Agrees t: Yes Safety Risks/Education Patient Education: Gait Training, Transfer Techniques, Correct Positioning, Disease Process, Safety Issues Teaching Recipient: Patient Response to Teaching: Reinforcement Needed Time/GCodes Time In: 1400 Time Out: 1430 Total Billed Treatment Time: 30 Total Billed Treatment 1,GT10m,FA20m SCOTTIE MANCERA INTEGRATED CIRCUITS INSPECTOR Jan 16, 2022 14:30
--- NOTE | 2022-01-16 16:27 | Progress Note ---
DARIN ESPANA 01/16/22 1627: Progress Note CC: Debility following colon cancer subtotal colectomy HPI: This is a 81yoWF clinic patient of Dr. Acosta who presented to ARU following a lengthy course on 4th floor swing bed after ICU transfer following a subtotal colectomy by Dr. Parks for colon cancer. Patient did have SBO requiring NGT which resolved within 4 days. She has dementia with h/o TBI making it difficult to follow tasks and increase motivation. PLOF was walking with a walker with assisting ADL's and now she is requiring 1-2 transfers with ambulation and confusion comes and goes. Patient is sitting comfortably in recliner when I visited. Reports she is doing okay today. Patient was having a lot of loose stools this morning. Today will provide OMM to patient for assistance with recovery. ROS: General: Fatigue, Malaise Neurological: No confusion today Exam: General Appearance: No Apparent Distress, Chronically ill, Obese HEENT: PERRL/EOMI Respiratory: Chest Non Tender, Lungs Clear, Normal Breath Sounds, No Accessory Muscle Use, No Respiratory Distress Cardiovascular: RRR, No Edema, No Gallop, No JVD Gastrointestinal: Normal Bowel Sounds, No Organomegaly, No Pulsatile Mass, Non Tender, Soft Extremity: Normal Inspection, Non Tender Neurologic/Psychiatric: Alert, Oriented x3, Normal Affect Skin: Normal Color, Warm/Dry Lymphatic: No Adenopathy Assessment: S/p subtotal colectomy w/ileorectal anastamosis POD #21 Small bowel obstruction- Found on Xray (01-01-2022)- Resolved Hypokalemia Colon cancer T2DM HTN-OOC Dementia TBI at 22yo 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 I reviewed and verified all information documented by the medical student and made modifications to such information, when appropriate. I personally performed the physical exam and medical decision making. Mayra Acosta, Jan 17, 2022,05:29 DARIN ESPANA Jan 16, 2022 16:27 MAYRA ACOSTA DO Jan 17, 2022 05:29
[2022-01-16 20:30] VITALS: BP 130/56
--- NOTE | 2022-01-17 05:49 | PM&R Progress Note ---
Subjective HPI/CC On Admission Date Seen by Provider: Jan 17, 2022 Time Seen by Provider: 12:30 Subjective/Events-last exam 01/17/2022: Improved status Lomotil has been very helpful Monitor for constipation from Imodium and Lomotil 01/16/2022: Patient doing pretty well Discharge is planned to a skilled care facility We will attempt to add Lomotil twice a day as scheduled to help decrease stool frequency 01/15/2022: Pt is doing a little better Nausea, will be given Zofran Imodium will be given scheduled, that is helping loose stools from subtotal colectomy 01/14/2022: Pt is doing about the same Having loose stools, will respond to Imodium Podiatry consult Assisted living will likely be where she needs to go 01/13/2022: Pt is doing pretty well No other concerns Labs reviewed No other major issues 01/12/2022: Doing well Confusion at times Pain at times Imodium working well No other issues 01/11/2022: Doing well Improved cognition today Sleeps a lot CRYSTAL Lopez since she refuses it Imodium scheduled QID is working well for her and it is safe 01/10/2022: Doing about the same Weakness noted by therapy Confusion is labile No falls 01/09/2022: Doing well Ultram started for the pain No falls Improved cognition 01/09/2022: Patient doing better Pain improved No falls Cognition is labile visits often Review of Systems General: Fatigue, Malaise Objective Exam Vital Signs Vital Signs Date Time Temp Pulse Resp B/P (MAP) Pulse Ox O2 Delivery O2 Flow Rate FiO2 01/17/22 21:02 36.6 101 20 133/71 (91) 91 Room Air 01/17/22 21:00 2.00 01/14/22 08:09 21 Capillary Refill : General Appearance: No Apparent Distress, Chronically ill, Obese HEENT: PERRL/EOMI, Normal ENT Inspection Neck: Normal Inspection, Non Tender, Supple Respiratory: Chest Non Tender, Lungs Clear, Normal Breath Sounds, No Accessory Muscle Use, No Respiratory Distress Cardiovascular: Regular Rate, Rhythm, No Edema, No Gallop, No JVD Gastrointestinal: Normal Bowel Sounds, No Organomegaly, No Pulsatile Mass, Non Tender, Soft Back: Normal Inspection, No CVA Tenderness, No Vertebral Tenderness Extremity: Normal Inspection, Non Tender Neurologic/Psychiatric: Alert, Oriented x3, 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 FIM Transfers Therapy Code Descriptions/Definitions Functional [place] Measure: 0=Not Assessed/NA 4=Minimal Assistance 1=Total Assistance 5=Supervision or Setup 2=Maximal Assistance 6=Modified [place] 3=Moderate Assistance 7=Complete IndependenceSCALE: Activities may be completed with or without assistive devices. 0-Knnkzfsrwk-luwmrdk completes the activity by him/herself with no assistance from a helper. 5-Set-up or Clean-up Assistance-helper sets up or cleans up; patient completes activity. [place] assists only prior to or following the activity. 4-Supervision or Touching Assistance-helper provides verbal cues and/or t ouching/steadying and/or contact guard assistance as patient completes activity. Assistance may be provided throughout the activity or intermittently. 3-Partial/Moderate Assistance-helper does LESS THAN HALF the effort. [place] lifts, holds or supports trunk or limbs, but provides less than half the effort. 2-Substantial/Maximal Assistance-helper does MORE THAN HALF the effort. [place] lifts or holds trunk or limbs and provides more than half the effort. 8-Ffvtyerwl-ilddgm does ALL the effort. Patient does none of the effort to complete the activity. Or, the assistance of 2 or more helpers is required for the patient to complete the activity. If activity was not attempted, code reason: 7-Patient Refused. 9-Not Applicable-not attempted and the patient did not perform the activity before the current illness, exacerbation or injury. 10-Not Attempted due to Environmental Limitations-(lack of equipment, weather restraints, etc.). 88-Not Attempted due to Medical Conditions or Safety Concerns. Roll Left to Right (QC): 6 Sit to Lying (QC): 4 Sit to Stand (QC): 4 Chair/Nuv-lj-Pbrex Xfer(QC): 4 Car Transfer (QC): 88 Gait Training Does the Patient Walk?: Yes Distance: 10' Walk 10 feet (QC): 4 Walk 50 ft with 2 Turns(QC): 4 Walk 150 ft (QC): 88 Walking 10ft/uneven surface-QC: 88 Gait Persons Needed: 1 Gait Assistive Device: FWW Wheelchair Training Does the Pt Use a Wheelchair?: Yes Distance: 50'x2 Wheel 50 ft with 2 turns (QC): 3 Wheel 150 ft (QC): 88 Type of Wheelchair: Manual Stair Training 1 Step (curb) (QC): 88 4 Steps (QC): 88 12 Steps (QC): 88 Balance Picking up an Object (QC): 88 ADL-Treatment Eating (QC): 6 (per clinical judgment) Oral Hygiene (QC): 6 Bathing Location: L Arm, R Arm, L Upper Leg, R Upper Leg, L Lower Leg (including foot), R Lower Leg (including foot), Chest, Abdomen, Buttocks, Perineal Area Shower/Bathe Self (QC): 3 Upper Body Dressing (QC): 5 Lower Body Dressing (QC): 2 On/Off Footwear (QC): 1 Toileting Hygiene (QC): 2 Toilet Transfer (QC): 4 Assessment/Plan Assessment and Plan Assess & Plan/Chief Complaint Assessment: S/p subtotal colectomy w/ileorectal anastamosis POD #27 Small bowel obstruction- Found on Xray (01-01-2022)- Resolved Hypokalemia Colon cancer T2DM HTN-OOC Dementia TBI at 22yo Plan: PT OT Monitor pain Monitor loose stools Monitor delirium 01/08/2022: Imodium Monitor cognitive changes 01/09/2022: Imodium Ultram 01/10/2022: Supportive care Expect labile confusion 01/10/2022: Restart DM med home dosing Monitor elevated BP 01/11/2022: DC Questran Increase BP meds with Hydralazine 01/12/2022: Monitor closely 01/13/2022: Monitor BP and sugar 01/14/2022: Supportive care Pain control 01/15/2022: Supportive care AL at DC 01/16/2022: Add Lomotil to twice a day scheduled for constipation 01/17/2022: Monitor constipation from Lomotil trial (1) Generalized weakness Status: Acute (2) Colon cancer (3) GI bleed (4) Edema (5) Diabetes (6) Dementia Status: Acute JAMES BOWDEN DO Jan 17, 2022 05:49
[2022-01-17] MEDS: inSUlin ASPART (NovoLOG) 1 UNIT/0.01 ML (CHARGE PER UNIT) SC SCH ×4 (06:42→21:08)
[2022-01-17] MEDS: PANTOPRAZOLE 40 MG (PROTONIX) TAB PO SCH (06:47)
[2022-01-17 07:20] VITALS: BP 141/63
[2022-01-17] MEDS: lisINopril 20 MG (PRINIVIL) TABLET PO SCH (08:46)
[2022-01-17] MEDS: amLODIPine 5 MG (NORVASC) TAB PO SCH ×2 (08:46→21:05)
[2022-01-17] MEDS: DIPHENOXYLATE/ATROPINE 2.5MG/0.025MG (LOMOTIL) TAB PO SCH ×2 (08:46→21:05)
[2022-01-17] MEDS: MEMANTINE 10 MG (NAMENDA) TABLET PO SCH ×2 (08:46→21:05)
[2022-01-17] MEDS: LOPERAMIDE 2 MG (IMODIUM) TABLET PO SCH ×4 (08:46→21:05)
[2022-01-17] MEDS: polyethylene glycoL POWDER 17 GM (MIRALAX) PACK PO SCH ×2 (08:46→21:00)
[2022-01-17] MEDS: hydrALAZINE (APRESOLINE) 25 MG TAB PO SCH ×3 (08:46→21:05)
--- NOTE | 2022-01-17 10:00 | Physical Therapy Daily Note ---
PT Daily Note-Current Subjective Patient sitting in chair upon PT arrival, agreeable to treatment. Rates pain at 0/10 currently. Pain Section J - Health Conditions 1. Rarely or not at all 2. Occasionally 3. Frequently 4. Almost constantly 8. Unable to answer Pain Effect on Sleep: 0 Pain Interference with Therapy: 3 Pain Interference w/Day-to-Day: 3 Mental Status Patient Orientation: Person Transfers SCALE: Activities may be completed with or without assistive devices. 8-Jstzatjdac-jehqerr completes the activity by him/herself with no assistance from a helper. 5-Set-up or Clean-up Assistance-helper sets up or cleans up; patient completes activity. [place] assists only prior to or following the activity. 4-Supervision or Touching Assistance-helper provides verbal cues and/or touching/steadying and/or contact guard assistance as patient completes activity. Assistance may be provided throughout the activity or intermittently. 3-Partial/Moderate Assistance-helper does LESS THAN HALF the effort. [place] lifts, holds or supports trunk or limbs, but provides less than half the effort. 2-Substantial/Maximal Assistance-helper does MORE THAN HALF the effort. [place] lifts or holds trunk or limbs and provides more than half the effort. 6-Vlnhpluck-vyxqra does ALL the effort. Patient does none of the effort to complete the activity. Or, the assistance of 2 or more helpers is required for the patient to complete the activity. If activity was not attempted, code reason: 7-Patient Refused. 9-Not Applicable-not attempted and the patient did not perform the activity before the current illness, exacerbation or injury. 10-Not Attempted due to Environmental Limitations-(lack of equipment, weather restraints, etc.). 88-Not Attempted due to Medical Conditions or Safety Concerns. Sit to Stand (QC): 4 Chair/Lja-wp-Yswvy Xfer(QC): 4 Gait Training Does the Patient Walk?: Yes Distance: 45 feet, 45 feet Walk 10 feet (QC): 4 Gait Assistive Device: FWW Wheelchair Training Does the Pt Use a Wheelchair?: Yes Patient propels herself 20 feet with min A and frequent verbal cues. Exercises Supine Ex: Ankle pumps, Quad Set, Glut sets Supine Reps: 20 Seated Therapy Exercises: Long arc quads, Hip flexion, Hamstring Curls, Hip abd/add Seated Reps: 20 NuStep Minutes: 10 NuStep Workload: 3 Assessment Current Status: Fair Progress Patient demonstrates fair overall improvement with transfers this visit. She performs LE exercises as listed above. Patient ambulates 45 feet x 2 with CGA with one sitting rest break. Patient ambulates with forward head posture, narrow [place] and tends to keep the FWW too far from her body. She demonstrates improved overall distance, however is greatly fatigued post gait. Patient in chair post treatment with all needs met, nursing notified, call light in hand, in the room. PT Short Term Goals Short Term Goals Time Frame: Jan 14, 2022 Roll Left & Right: 3 (Fawad) Sit to lyin (Fawad) Lying to sitting on side of be: 3 (Fawad) Sit to stand: 3 (Fawad) Chair/okg-oq-ihgei transfer: 4 (CGA) Walk 10 feet: 4 (CGA) PT Pre Press Operator Goals Pre Press Operator Goals PT Pre Press Operator Goals Time Frame: Jan 28, 2022 Roll Left & Right (QC): 4 (SBA) Sit to Lying (QC): 4 (SBA) Lying-Sitting on Side/Bed(QC): 4 (SBA) Sit to Stand (QC): 4 (CGA) Chair/Agr-oe-Jnnav Xfer(QC): 4 (SBA) Toilet Transfer (QC): 4 (SBA) Car Transfer (QC): 4 (CGA) Does the Patient Walk: Yes Walk 10 feet (QC): 4 (SBA) Walk 50ft with 2 Turns (QC): 4 (SBA) Walk 150 ft (QC): 4 (SBA) Walking 10ft on Uneven Surface: 4 (CGA) 1 Step (curb) (QC): 4 (CGA) 4 Steps (QC): 4 (CGA) 12 Steps (QC): 88 Picking up an Object (QC): 4 (CGA) Wheel 50 feet with 2 turns (QC: 9 Wheel 150 feet: 9 PT Plan Treatment/Plan Treatment Plan: Continue Plan of Care Treatment Plan: Bed Mobility, Education, Functional Activity Pat, Functional Strength, Group Therapy, Gait, Safety, Therapeutic Exercise, Transfers Treatment Duration: Jan 28, 2022 Frequency: At least 5 of 7 days/Wk (IRF) Estimated Hrs Per Day: 1.5 hours per day Patient and/or Family Agrees t: Yes Safety Risks/Education Patient Education: Gait Training, Transfer Techniques Teaching Recipient: Patient Teaching Methods: Demonstration, Discussion Response to Teaching: Reinforcement Needed Time/GCodes Time In: 900 Time Out: 1000 Total Billed Treatment Time: 60 Total Billed Treatment Visit, Gait (20), Ex (20), FA (20) MAUREEN DÍAZ PT Jan 17, 2022 10:00
--- NOTE | 2022-01-17 10:05 | Occupational Ther Daily Note ---
OT Current Status-Daily Note Subjective Pt alert, sitting in recliner. Pt kept on saying that she just does not feel right and it has been awhile since she has. Pt refuses to eat or complete any ADLs. VALENTINE encourages pt to participate in OT session while staying in recliner and completing IADLs to distract pt from focusing on negative thoughts. Mental Status/Objective Patient Orientation: Person, Confused, Place, Time, Situation Attachments: Oxygen (2L) Acute change in mental status: 0 Inattention: 0 Disorganized thinkin Altered level of consciousness: 0 ADL-Treatment Therapy Code Descriptions/Definitions Functional [place] Measure: 0=Not Assessed/NA 4=Minimal Assistance 1=Total Assistance 5=Supervision or Setup 2=Maximal Assistance 6=Modified [place] 3=Moderate Assistance 7=Complete IndependenceSCALE: Activities may be completed with or without assistive devices. 5-Kkfhawyroj-yuliqkg completes the activity by him/herself with no assistance from a helper. 5-Set-up or Clean-up Assistance-helper sets up or cleans up; patient completes activity. [place] assists only prior to or following the activity. 4-Supervision or Touching Assistance-helper provides verbal cues and/or touching/steadying and/or contact guard assistance as patient completes activity. Assistance may be provided throughout the activity or intermittently. 3-Partial/Moderate Assistance-helper does LESS THAN HALF the effort. [place] lifts, holds or supports trunk or limbs, but provides less than half the effort. 2-Substantial/Maximal Assistance-helper does MORE THAN HALF the effort. [place] lifts or holds trunk or limbs and provides more than half the effort. 3-Qawupikbb-onunzv does ALL the effort. Patient does none of the effort to complete the activity. Or, the assistance of 2 or more helpers is required for the patient to complete the activity. If activity was not attempted, code reason: 7-Patient Refused. 9-Not Applicable-not attempted and the patient did not perform the activity bef ore the current illness, exacerbation or injury. 10-Not Attempted due to Environmental Limitations-(lack of equipment, weather r estraints, etc.). 88-Not Attempted due to Medical Conditions or Safety Concerns. Eating (QC): 5 (Set up to encourage pt to eat something.) Other Treatment Active listening to pt to encourage pt to talk about other topics than worrying about hospital stay. Pt completed fine motor activity incorporating B UE gross motor and cognitive component throughout session. Pt required verbal cues to focus on tasks and choose items to use during task. Pt able to complete motor portion of activity without difficulty. Pt began to smile and sing while participating in OT session. After therapy, pt sitting in recliner with call light/phone in reach. All needs met in room. OT Short Term Goals Short Term Goals Time Frame: Jan 17, 2022 Eatin Oral hygiene: 5 Toileting hygiene: 3 Shower/bathe self: 3 Upper body dressin Lower body dressin Putting on/taking off footwear: 2 OT Desktop Technician Goals Retirement Goals Time Frame: Jan 24, 2022 Acute change in mental status: 0 Inattention: 0 Disorganized thinkin Altered level of consciousness: 0 Eating (QC): 5 Oral Hygiene (QC): 5 Toileting Hygiene (QC): 4 Shower/Bathe Self (QC): 4 Upper Body Dressing (QC): 3 (set-up for shirt, min assist for bra) Lower Body Dressing (QC): 3 On/Off Footwear (QC): 2 Additional Goals: 1-Demonstrate ADL Tasks, 2-Verbalize Understanding, 3- ImproveStrength/Pat 1=Demonstrate adherence to instructed precautions during ADL tasks. 2=Patient will verbalize/demonstrate understanding of assistive devices/modifi cations for ADL. 3=Patient will improve strength/tolerance for activity to enable patient to perform ADL's. OT Education/Plan Problem List/Assessment Assessment: Decreased Activ Tolerance, Impaired Cognition, Impaired Self-Care Skills Discharge Recommendations Plan/Recommendations: Continue POC Treatment Plan/Plan of Care Patient would benefit from OT for education, treatment and training to promote independence in ADL's, mobility, safety and/or upper extremity function for ADL's. Plan of Care: ADL Retraining, Caregiver Training, Cognitive Retraining, Functional Mobility, Group Exercise/Act as Ind, UE Funct Exercise/Act, UE Neuromus Re-Ed/Coord, W/C Management Training Treatment Duration: Jan 24, 2022 Frequency: At least 5 of 7 days/Wk (IRF) Estimated Hrs Per Day: 1.5 hours per day (60-75 minutes per day) Agreement: Yes Rehab Potential: Guarded Time/GCodes Start Time: 08:00 Stop Time: 09:00 Total Time Billed (hr/min): 60 Billed Treatment Time 1 visit-ADL 1 (10 min) FA 3 (50 min) BLANCA MO Jan 17, 2022 10:05
[2022-01-17] MEDS: ENOXAPARIN 40 MG/0.4 ML (LOVENOX) SYR SC SCH (11:56)
--- NOTE | 2022-01-17 13:50 | Occupational Ther Daily Note ---
OT Current Status-Daily Note Subjective Pt alert, sitting in recliner. Pt agrees to therapy. Family and visitors in room. No c/o pain. Pt refused O2. Mental Status/Objective Patient Orientation: Person, Place, Time, Situation Acute change in mental status: 0 Inattention: 0 Disorganized thinkin Altered level of consciousness: 0 ADL-Treatment Pt requires increased encouragement to eat lunch. Pt refused tray that was initially brought. VALENTINE ordered 2nd lunch to pt's preferences. Pt requested to use toilet. Sit to stand SBA. Ambulated using FWW to toilet, CGA. Pt able to complete clothing manipulation and hygiene with CGA. Pt declined to complete oral care. Cleansed hands with warm cloth. Therapy Code Descriptions/Definitions Functional [place] Measure: 0=Not Assessed/NA 4=Minimal Assistance 1=Total Assistance 5=Supervision or Setup 2=Maximal Assistance 6=Modified [place] 3=Moderate Assistance 7=Complete IndependenceSCALE: Activities may be completed with or without assistive devices. 6-Grecmzhkhd-qckhgnt completes the activity by him/herself with no assistance from a helper. 5-Set-up or Clean-up Assistance-helper sets up or cleans up; patient completes activity. [place] assists only prior to or following the activity. 4-Supervision or Touching Assistance-helper provides verbal cues and/or touching/steadying and/or contact guard assistance as patient completes activity. Assistance may be provided throughout the activity or intermittently. 3-Partial/Moderate Assistance-helper does LESS THAN HALF the effort. [place] lifts, holds or supports trunk or limbs, but provides less than half the effort. 2-Substantial/Maximal Assistance-helper does MORE THAN HALF the effort. [place] lifts or holds trunk or limbs and provides more than half the effort. 6-Dxllxcezl-zfcdir does ALL the effort. Patient does none of the effort to complete the activity. Or, the assistance of 2 or more helpers is required for the patient to complete the activity. If activity was not attempted, code reason: 7-Patient Refused. 9-Not Applicable-not attempted and the patient did not perform the activity before the current illness, exacerbation or injury. 10-Not Attempted due to Environmental Limitations-(lack of equipment, weather restraints, etc.). 88-Not Attempted due to Medical Conditions or Safety Concerns. Toileting Hygiene (QC): 4 Toilet Transfer (QC): 4 Other Treatment Pt taken to therapy gym to complete B UE tasks to work on strengthening against gravity, dynamic standing balance and increasing activity tolerance. OT/PT co-treat([id number]), skills of 2 clinicians required to decrease fall risk, increase dynamic standing balance and activity tolerance. PT focusing on stand ing and transfers while OT focusing on B UE strengthening and dynamic standing. Pt required assistance to find, sort and place puzzle pieces for border. Pt is able to stand with minimal support and use B UE to place a puzzle piece. Pt fatigues quickly and sits quickly, completed 3x's in 15 min. After session, pt sitting in recliner with call light/phone in reach. All needs met in room. OT Short Term Goals Short Term Goals Time Frame: Jan 17, 2022 Eatin Oral hygiene: 5 Toileting hygiene: 3 Shower/bathe self: 3 Upper body dressin Lower body dressin Putting on/taking off footwear: 2 OT Fdc Goals [employer] Reclamation Engineer Goals Time Frame: Jan 24, 2022 Acute change in mental status: 0 Inattention: 0 Disorganized thinkin Altered level of consciousness: 0 Eating (QC): 5 Oral Hygiene (QC): 5 Toileting Hygiene (QC): 4 Shower/Bathe Self (QC): 4 Upper Body Dressing (QC): 3 (set-up for shirt, min assist for bra) Lower Body Dressing (QC): 3 On/Off Footwear (QC): 2 Additional Goals: 1-Demonstrate ADL Tasks, 2-Verbalize Understanding, 3- ImproveStrength/Pat 1=Demonstrate adherence to instructed precautions during ADL tasks. 2=Patient will verbalize/demonstrate understanding of assistive devices/modifications for ADL. 3=Patient will improve strength/tolerance for activity to enable patient to perform ADL's. OT Education/Plan Problem List/Assessment Assessment: Decreased Activ Tolerance Discharge Recommendations Plan/Recommendations: Continue POC Treatment Plan/Plan of Care Patient would benefit from OT for education, treatment and training to promote independence in ADL's, mobility, safety and/or upper extremity function for ADL's. Plan of Care: ADL Retraining, Caregiver Training, Cognitive Retraining, Functional Mobility, Group Exercise/Act as Ind, UE Funct Exercise/Act, UE Neuromus Re-Ed/Coord, W/C Management Training Treatment Duration: Jan 24, 2022 Frequency: At least 5 of 7 days/Wk (IRF) Estimated Hrs Per Day: 1.5 hours per day (60-75 minutes per day) Agreement: Yes Rehab Potential: Guarded Time/GCodes Start Time: 12:30 Stop Time: 13:30 Total Time Billed (hr/min): 60 Billed Treatment Time 1 visit-ADL 2 (30 min) FA 2 (30 min) co-treat with PT 15 min, individual 45 min BLANCA MO Jan 17, 2022 13:50
--- NOTE | 2022-01-17 14:16 | Physical Therapy Daily Note ---
PT Daily Note-Current Subjective Patient sitting in chair in the therapy gym with OT. Patient will be co-treated with OT to advance patients standing balance with skilled therapy and focus on problem solving. Pain Section J - Health Conditions 1. Rarely or not at all 2. Occasionally 3. Frequently 4. Almost constantly 8. Unable to answer Pain Effect on Sleep: 0 Pain Interference with Therapy: 3 Pain Interference w/Day-to-Day: 3 Transfers SCALE: Activities may be completed with or without assistive devices. 2-Tbueumuglg-oufskef completes the activity by him/herself with no assistance from a helper. 5-Set-up or Clean-up Assistance-helper sets up or cleans up; patient completes activity. [place] assists only prior to or following the activity. 4-Supervision or Touching Assistance-helper provides verbal cues and/or touching/steadying and/or contact guard assistance as patient completes activity. Assistance may be provided throughout the activity or intermittently. 3-Partial/Moderate Assistance-helper does LESS THAN HALF the effort. [place] lifts, holds or supports trunk or limbs, but provides less than half the effort. 2-Substantial/Maximal Assistance-helper does MORE THAN HALF the effort. [place] lifts or holds trunk or limbs and provides more than half the effort. 2-Jpbzdsfvd-vabzsf does ALL the effort. Patient does none of the effort to complete the activity. Or, the assistance of 2 or more helpers is required for the patient to complete the activity. If activity was not attempted, code reason: 7-Patient Refused. 9-Not Applicable-not attempted and the patient did not perform the activity before the current illness, exacerbation or injury. 10-Not Attempted due to Environmental Limitations-(lack of equipment, weather restraints, etc.). 88-Not Attempted due to Medical Conditions or Safety Concerns. Sit to Stand (QC): 4 Treatments Standing dynamic balance activities with PT/OT co-treat to focus on advanced level balance and advanced cognitive treatment. Assessment Current Status: Fair Progress Patient tolerated treatment fair. Performed static dynamic activities to focus on balance, cognition and standing tolerance. Standing dynamic balance activit ies with PT/OT co-treat to focus on advanced level balance and advanced cognitive treatment. Patient in chair post treatment with OT upon PT departure. PT Short Term Goals Short Term Goals Time Frame: Jan 14, 2022 Roll Left & Right: 3 (Fawad) Sit to lyin (Fawad) Lying to sitting on side of be: 3 (Fawad) Sit to stand: 3 (Fawad) Chair/mtk-iy-vvzke transfer: 4 (CGA) Walk 10 feet: 4 (CGA) PT [employer] Goals Nursing Home Goals PT Nursing Home Goals Time Frame: Jan 28, 2022 Roll Left & Right (QC): 4 (SBA) Sit to Lying (QC): 4 (SBA) Lying-Sitting on Side/Bed(QC): 4 (SBA) Sit to Stand (QC): 4 (CGA) Chair/Ixt-gh-Ridih Xfer(QC): 4 (SBA) Toilet Transfer (QC): 4 (SBA) Car Transfer (QC): 4 (CGA) Does the Patient Walk: Yes Walk 10 feet (QC): 4 (SBA) Walk 50ft with 2 Turns (QC): 4 (SBA) Walk 150 ft (QC): 4 (SBA) Walking 10ft on Uneven Surface: 4 (CGA) 1 Step (curb) (QC): 4 (CGA) 4 Steps (QC): 4 (CGA) 12 Steps (QC): 88 Picking up an Object (QC): 4 (CGA) Wheel 50 feet with 2 turns (QC: 9 Wheel 150 feet: 9 PT Plan Treatment/Plan Treatment Plan: Continue Plan of Care Treatment Plan: Bed Mobility, Education, Functional Activity Pat, Functional Strength, Group Therapy, Gait, Safety, Therapeutic Exercise, Transfers Treatment Duration: Jan 28, 2022 Frequency: At least 5 of 7 days/Wk (IRF) Estimated Hrs Per Day: 1.5 hours per day Patient and/or Family Agrees t: Yes Safety Risks/Education Patient Education: Transfer Techniques Teaching Recipient: Patient Teaching Methods: Demonstration, Discussion Response to Teaching: Reinforcement Needed Time/GCodes Time In: 1315 Time Out: 1330 Total Billed Treatment Time: 15 Total Billed Treatment Visit, MAUREEN GUSTAFSON PT Jan 17, 2022 14:16
[2022-01-17 21:02] VITALS: BP 133/71
[2022-01-18] MEDS: PANTOPRAZOLE 40 MG (PROTONIX) TAB PO SCH (06:12)
[2022-01-18] MEDS: inSUlin ASPART (NovoLOG) 1 UNIT/0.01 ML (CHARGE PER UNIT) SC SCH ×4 (06:15→21:00)
--- NOTE | 2022-01-18 07:58 | PM&R Progress Note ---
Subjective HPI/CC On Admission Date Seen by Provider: Jan 18, 2022 Time Seen by Provider: 11:30 Subjective/Events-last exam 01/18/2022: Patient having pain on and off Lomotil helping but she did have loose stool today so no severe constipation Check meds and labs 01/17/2022: Improved status Lomotil has been very helpful Monitor for constipation from Imodium and Lomotil 01/16/2022: Patient doing pretty well Discharge is planned to a skilled care facility We will attempt to add Lomotil twice a day as scheduled to help decrease stool frequency 01/15/2022: Pt is doing a little better Nausea, will be given Zofran Imodium will be given scheduled, that is helping loose stools from subtotal colectomy 01/14/2022: Pt is doing about the same Having loose stools, will respond to Imodium Podiatry consult Assisted living will likely be where she needs to go 01/13/2022: Pt is doing pretty well No other concerns Labs reviewed No other major issues 01/12/2022: Doing well Confusion at times Pain at times Imodium working well No other issues 01/11/2022: Doing well Improved cognition today Sleeps a lot DC Jessica since she refuses it Imodium scheduled QID is working well for her and it is safe 01/10/2022: Doing about the same Weakness noted by therapy Confusion is labile No falls 01/09/2022: Doing well Ultram started for the pain No falls Improved cognition 01/09/2022: Patient doing better Pain improved No falls Cognition is labile visits often Review of Systems General: Fatigue, Malaise Objective Exam Vital Signs Vital Signs Date Time Temp Pulse Resp B/P (MAP) Pulse Ox O2 Delivery O2 Flow Rate FiO2 01/18/22 21:15 Nasal Cannula 2.00 01/18/22 20:00 36.9 88 20 135/64 (87) 98 01/14/22 08:09 21 Capillary Refill : General Appearance: No Apparent Distress, Chronically ill, Obese HEENT: PERRL/EOMI, Normal ENT Inspection Neck: Normal Inspection, Non Tender, Supple Respiratory: Chest Non Tender, Lungs Clear, Normal Breath Sounds, No Accessory Muscle Use, No Respiratory Distress Cardiovascular: Regular Rate, Rhythm, No Edema, No Gallop, No JVD Gastrointestinal: Normal Bowel Sounds, No Organomegaly, No Pulsatile Mass, Non Tender, Soft Back: Normal Inspection, No CVA Tenderness, No Vertebral Tenderness Extremity: Normal Inspection, Non Tender Neurologic/Psychiatric: Alert, Oriented x3, tile finisher II-XII Norm as Tested, Depressed Affect, Disoriented Skin: Normal Color, Warm/Dry Lymphatic: No Adenopathy Results/Procedures Lab Patient resulted labs reviewed. FIM Transfers Therapy Code Descriptions/Definitions Functional [place] Measure: 0=Not Assessed/NA 4=Minimal Assistance 1=Total Assistance 5=Supervision or Setup 2=Maximal Assistance 6=Modified [place] 3=Moderate Assistance 7=Complete IndependenceSCALE: Activities may be completed with or without assistive devices. 5-Aoszwrgyzc-bnbpqcp completes the activity by him/herself with no assistance from a helper. 5-Set-up or Clean-up Assistance-helper sets up or cleans up; patient completes activity. [place] assists only prior to or following the activity. 4-Supervision or Touching Assistance-helper provides verbal cues and/or touching/steadying and/or contact guard assistance as patient completes activity. Assistance may be provided throughout the activity or intermittently. 3-Partial/Moderate Assistance-helper does LESS THAN HALF the effort. [place] lifts, holds or supports trunk or limbs, but provides less than half the effort. 2-Substantial/Maximal Assistance-helper does MORE THAN HALF the effort. [place] lifts or holds trunk or limbs and provides more than half the effort. 8-Owzzxtydp-mqflns does ALL the effort. Patient does none of the effort to complete the activity. Or, the assistance of 2 or more helpers is required for the patient to complete the activity. If activity was not attempted, code reason: 7-Patient Refused. 9-Not Applicable-not attempted and the patient did not perform the activity before the current illness, exacerbation or injury. 10-Not Attempted due to Environmental Limitations-(lack of equipment, weather restraints, etc.). 88-Not Attempted due to Medical Conditions or Safety Concerns. Roll Left to Right (QC): 6 Sit to Lying (QC): 4 Sit to Stand (QC): 4 Chair/Pxy-jo-Prtdy Xfer(QC): 4 Car Transfer (QC): 88 Gait Training Does the Patient Walk?: Yes Distance: 45 feet, 45 feet Walk 10 feet (QC): 4 Walk 50 ft with 2 Turns(QC): 4 Walk 150 ft (QC): 88 Walking 10ft/uneven surface-QC: 88 Gait Persons Needed: 1 Gait Assistive Device: FWW Wheelchair Training Does the Pt Use a Wheelchair?: Yes Distance: 50'x2 Wheel 50 ft with 2 turns (QC): 3 Wheel 150 ft (QC): 88 Type of Wheelchair: Manual Stair Training 1 Step (curb) (QC): 88 4 Steps (QC): 88 12 Steps (QC): 88 Balance Picking up an Object (QC): 88 ADL-Treatment Eating (QC): 5 (Set up to encourage pt to eat something.) Oral Hygiene (QC): 6 Bathing Location: L Arm, R Arm, L Upper Leg, R Upper Leg, L Lower Leg (including foot), R Lower Leg (including foot), Chest, Abdomen, Buttocks, Perineal Area Shower/Bathe Self (QC): 3 Upper Body Dressing (QC): 5 Lower Body Dressing (QC): 2 On/Off Footwear (QC): 1 Toileting Hygiene (QC): 4 Toilet Transfer (QC): 4 Assessment/Plan Assessment and Plan Assess & Plan/Chief Complaint Assessment: S/p subtotal colectomy w/ileorectal anastamosis POD #27 Small bowel obstruction- Found on Xray (01-01-2022)- Resolved Hypokalemia Colon cancer T2DM HTN-OOC Dementia TBI at 22yo Plan: PT OT Monitor pain Monitor loose stools Monitor delirium 01/08/2022: Imodium Monitor cognitive changes 01/09/2022: Imodium Ultram 01/10/2022: Supportive care Expect labile confusion 01/10/2022: Restart DM med home dosing Monitor elevated BP 01/11/2022: DC Ascencionran Increase BP meds with Hydralazine 01/12/2022: Monitor closely 01/13/2022: Monitor BP and sugar 01/14/2022: Supportive care Pain control 01/15/2022: Supportive care AL at DC 01/16/2022: Add Lomotil to twice a day scheduled for constipation 01/17/2022: Monitor constipation from Lomotil trial 01/18/2022: Continue with Lomotil (1) Generalized weakness Status: Acute (2) Colon cancer (3) GI bleed (4) Edema (5) Diabetes (6) Dementia Status: Acute JAMES BOWDEN DO Jan 18, 2022 07:58
[2022-01-18 08:28] VITALS: BP 150/67
[2022-01-18] MEDS: MEMANTINE 10 MG (NAMENDA) TABLET PO SCH ×2 (08:58→21:22)
[2022-01-18] MEDS: amLODIPine 5 MG (NORVASC) TAB PO SCH ×2 (08:58→21:22)
[2022-01-18] MEDS: LOPERAMIDE 2 MG (IMODIUM) TABLET PO SCH ×4 (08:58→21:23)
[2022-01-18] MEDS: lisINopril 20 MG (PRINIVIL) TABLET PO SCH (08:58)
[2022-01-18] MEDS: DIPHENOXYLATE/ATROPINE 2.5MG/0.025MG (LOMOTIL) TAB PO SCH ×2 (08:58→21:23)
[2022-01-18] MEDS: hydrALAZINE (APRESOLINE) 25 MG TAB PO SCH ×3 (08:59→21:22)
[2022-01-18] MEDS: ENOXAPARIN 40 MG/0.4 ML (LOVENOX) SYR SC SCH (08:59)
[2022-01-18] MEDS: polyethylene glycoL POWDER 17 GM (MIRALAX) PACK PO SCH ×2 (09:00→21:00)
--- NOTE | 2022-01-18 10:53 | Physical Therapy Daily Note ---
PT Daily Note-Current Subjective Patient is very confused. Pain Section J - Health Conditions 1. Rarely or not at all 2. Occasionally 3. Frequently 4. Almost constantly 8. Unable to answer Pain Effect on Sleep: 0 Pain Interference with Therapy: 3 Pain Interference w/Day-to-Day: 3 Mental Status Patient Orientation: Confused Transfers SCALE: Activities may be completed with or without assistive devices. 1-Wsrwgvrahc-lmsmdcj completes the activity by him/herself with no assistance from a helper. 5-Set-up or Clean-up Assistance-helper sets up or cleans up; patient completes activity. [place] assists only prior to or following the activity. 4-Supervision or Touching Assistance-helper provides verbal cues and/or touching/steadying and/or contact guard assistance as patient completes activity. Assistance may be provided throughout the activity or intermittently. 3-Partial/Moderate Assistance-helper does LESS THAN HALF the effort. [place] lifts, holds or supports trunk or limbs, but provides less than half the effort. 2-Substantial/Maximal Assistance-helper does MORE THAN HALF the effort. [place] lifts or holds trunk or limbs and provides more than half the effort. 1-Vogterwug-chxhlj does ALL the effort. Patient does none of the effort to complete the activity. Or, the assistance of 2 or more helpers is required for the patient to complete the activity. If activity was not attempted, code reason: 7-Patient Refused. 9-Not Applicable-not attempted and the patient did not perform the activity before the current illness, exacerbation or injury. 10-Not Attempted due to Environmental Limitations-(lack of equipment, weather restraints, etc.). 88-Not Attempted due to Medical Conditions or Safety Concerns. Lying to Sitting/Side of Bed(Q: 3 Sit to Stand (QC): 3 Chair/Lsq-ep-Nwkun Xfer(QC): 3 Toilet Transfer (QC): 3 Gait Training Distance: 20' x 2 Walk 10 feet (QC): 3 Gait Assistive Device: FWW flexed bilateral knee posture with shuffle gait sequence with no foot clearance Assessment Patient incontinent BM requiring dependent assist to cleanse, change and place YFN hose on. Patient is unaware of incontinence. Patient tolerates minimal activity and is up in recliner with chair alarm activated. PT Short Term Goals Short Term Goals Time Frame: Jan 14, 2022 Roll Left & Right: 3 (Fawad) Sit to lyin (Fawad) Lying to sitting on side of be: 3 (Fawad) Sit to stand: 3 (Fawad) Chair/ivx-cw-khtgk transfer: 4 (CGA) Walk 10 feet: 4 (CGA) PT Casting Wheel Operator Helper Goals Casting Wheel Operator Helper Goals PT Residential Goals Time Frame: Jan 28, 2022 Roll Left & Right (QC): 4 (SBA) Sit to Lying (QC): 4 (SBA) Lying-Sitting on Side/Bed(QC): 4 (SBA) Sit to Stand (QC): 4 (CGA) Chair/Ejq-ij-Petue Xfer(QC): 4 (SBA) Toilet Transfer (QC): 4 (SBA) Car Transfer (QC): 4 (CGA) Does the Patient Walk: Yes Walk 10 feet (QC): 4 (SBA) Walk 50ft with 2 Turns (QC): 4 (SBA) Walk 150 ft (QC): 4 (SBA) Walking 10ft on Uneven Surface: 4 (CGA) 1 Step (curb) (QC): 4 (CGA) 4 Steps (QC): 4 (CGA) 12 Steps (QC): 88 Picking up an Object (QC): 4 (CGA) Wheel 50 feet with 2 turns (QC: 9 Wheel 150 feet: 9 PT Plan Treatment/Plan Treatment Plan: Continue Plan of Care Treatment Plan: Bed Mobility, Education, Functional Activity Pat, Functional Strength, Group Therapy, Gait, Safety, Therapeutic Exercise, Transfers Treatment Duration: Jan 28, 2022 Frequency: At least 5 of 7 days/Wk (IRF) Estimated Hrs Per Day: 1.5 hours per day Patient and/or Family Agrees t: Yes Time/GCodes Time In: 910 Time Out: 933 Total Billed Treatment Time: 23 Total Billed Treatment 1 visit FA x 2 23min BAILEY CHÁVEZ PT Jan 18, 2022 10:53
[2022-01-18] MEDS: HYDROcodone/APAP 5 MG/325 MG (LORTAB) TAB PO PRN ×2 (12:22→21:23)
[2022-01-18 12:25] VITALS: BP 170/74
[2022-01-18 20:00] VITALS: BP 135/64
[2022-01-19] MEDS: inSUlin ASPART (NovoLOG) 1 UNIT/0.01 ML (CHARGE PER UNIT) SC SCH ×4 (06:35→20:40)
[2022-01-19] MEDS: PANTOPRAZOLE 40 MG (PROTONIX) TAB PO SCH (06:35)
--- NOTE | 2022-01-19 07:01 | PM&R Progress Note ---
Subjective HPI/CC On Admission Date Seen by Provider: Jan 19, 2022 Time Seen by Provider: 12:00 Subjective/Events-last exam 01/19/2022: No major issues Lomotil is improving the loose stools Pain controlled but comes and goes Eating well 01/18/2022: Patient having pain on and off Lomotil helping but she did have loose stool today so no severe constipation Check meds and labs 01/17/2022: Improved status Lomotil has been very helpful Monitor for constipation from Imodium and Lomotil 01/16/2022: Patient doing pretty well Discharge is planned to a skilled care facility We will attempt to add Lomotil twice a day as scheduled to help decrease stool frequency 01/15/2022: Pt is doing a little better Nausea, will be given Zofran Imodium will be given scheduled, that is helping loose stools from subtotal colectomy 01/14/2022: Pt is doing about the same Having loose stools, will respond to Imodium Podiatry consult Assisted living will likely be where she needs to go 01/13/2022: Pt is doing pretty well No other concerns Labs reviewed No other major issues 01/12/2022: Doing well Confusion at times Pain at times Imodium working well No other issues 01/11/2022: Doing well Improved cognition today Sleeps a lot CRYSTAL Lopez since she refuses it Imodium scheduled QID is working well for her and it is safe 01/10/2022: Doing about the same Weakness noted by therapy Confusion is labile No falls 01/09/2022: Doing well Ultram started for the pain No falls Improved cognition 01/09/2022: Patient doing better Pain improved No falls Cognition is labile visits often Review of Systems General: Fatigue, Malaise Objective Exam Vital Signs Vital Signs Date Time Temp Pulse Resp B/P (MAP) Pulse Ox O2 Delivery O2 Flow Rate FiO2 01/19/22 09:33 Room Air 0.00 01/19/22 07:30 36.5 94 20 138/64 (88) 96 01/14/22 08:09 21 Capillary Refill : General Appearance: No Apparent Distress, Chronically ill, Obese HEENT: PERRL/EOMI, Normal ENT Inspection Neck: Normal Inspection, Non Tender, Supple Respiratory: Chest Non Tender, Lungs Clear, Normal Breath Sounds, No Accessory Muscle Use, No Respiratory Distress Cardiovascular: Regular Rate, Rhythm, No Edema, No Gallop, No JVD Gastrointestinal: Normal Bowel Sounds, No Organomegaly, No Pulsatile Mass, Non Tender, Soft Back: Normal Inspection, No CVA Tenderness, No Vertebral Tenderness Extremity: Normal Inspection, Non Tender Neurologic/Psychiatric: Alert, Oriented x3, cement finisher II-XII Norm as Tested, Depressed Affect, Disoriented Skin: Normal Color, Warm/Dry Lymphatic: No Adenopathy Results/Procedures Lab Patient resulted labs reviewed. FIM Transfers Therapy Code Descriptions/Definitions Functional [place] Measure: 0=Not Assessed/NA 4=Minimal Assistance 1=Total Assistance 5=Supervision or Setup 2=Maximal Assistance 6=Modified [place] 3=Moderate Assistance 7=Complete IndependenceSCALE: Activities may be completed with or without assistive devices. 4-Ojujdqmzvw-bfbawvp completes the activity by him/herself with no assistance from a helper. 5-Set-up or Clean-up Assistance-helper sets up or cleans up; patient completes activity. [place] assists only prior to or following the activity. 4-Supervision or Touching Assistance-helper provides verbal cues and/or jessenia reza/steadying and/or contact guard assistance as patient completes activity. Assistance may be provided throughout the activity or intermittently. 3-Partial/Moderate Assistance-helper does LESS THAN HALF the effort. [place] lifts, holds or supports trunk or limbs, but provides less than half the effort. 2-Substantial/Maximal Assistance-helper does MORE THAN HALF the effort. [place] lifts or holds trunk or limbs and provides more than half the effort. 3-Wpjomllmm-nuoyom does ALL the effort. Patient does none of the effort to complete the activity. Or, the assistance of 2 or more helpers is required for the patient to complete the activity. If activity was not attempted, code reason: 7-Patient Refused. 9-Not Applicable-not attempted and the patient did not perform the activity before the current illness, exacerbation or injury. 10-Not Attempted due to Environmental Limitations-(lack of equipment, weather restraints, etc.). 88-Not Attempted due to Medical Conditions or Safety Concerns. Roll Left to Right (QC): 6 Sit to Lying (QC): 4 Sit to Stand (QC): 3 Chair/Jvy-br-Oznxf Xfer(QC): 3 Car Transfer (QC): 88 Gait Training Does the Patient Walk?: Yes Distance: 20' x 2 Walk 10 feet (QC): 3 Walk 50 ft with 2 Turns(QC): 4 Walk 150 ft (QC): 88 Walking 10ft/uneven surface-QC: 88 Gait Persons Needed: 1 Gait Assistive Device: FWW Wheelchair Training Does the Pt Use a Wheelchair?: Yes Distance: 50'x2 Wheel 50 ft with 2 turns (QC): 3 Wheel 150 ft (QC): 88 Type of Wheelchair: Manual Stair Training 1 Step (curb) (QC): 88 4 Steps (QC): 88 12 Steps (QC): 88 Balance Picking up an Object (QC): 88 ADL-Treatment Eating (QC): 5 (Set up to encourage pt to eat something.) Oral Hygiene (QC): 6 Bathing Location: L Arm, R Arm, L Upper Leg, R Upper Leg, L Lower Leg (including foot), R Lower Leg (including foot), Chest, Abdomen, Buttocks, Perineal Area Shower/Bathe Self (QC): 3 Upper Body Dressing (QC): 5 Lower Body Dressing (QC): 2 On/Off Footwear (QC): 1 Toileting Hygiene (QC): 4 Toilet Transfer (QC): 4 Assessment/Plan Assessment and Plan Assess & Plan/Chief Complaint Assessment: S/p subtotal colectomy w/ileorectal anastamosis POD #29 Small bowel obstruction- Found on Xray (01-01-2022)- Resolved Hypokalemia Colon cancer T2DM HTN-OOC Dementia TBI at 22yo Plan: PT OT Monitor pain Monitor loose stools Monitor delirium 01/08/2022: Imodium Monitor cognitive changes 01/09/2022: Imodium Ultram 01/10/2022: Supportive care Expect labile confusion 01/10/2022: Restart DM med home dosing Monitor elevated BP 01/11/2022: DC Jessica Increase BP meds with Hydralazine 01/12/2022: Monitor closely 01/13/2022: Monitor BP and sugar 01/14/2022: Supportive care Pain control 01/15/2022: Supportive care AL at DC 01/16/2022: Add Lomotil to twice a day scheduled for constipation 01/17/2022: Monitor constipation from Lomotil trial 01/18/2022: Continue with Lomotil 01/19/2022: Lomotil Pain control (1) Generalized weakness Status: Acute (2) Colon cancer (3) GI bleed (4) Edema (5) Diabetes (6) Dementia Status: Acute JAMES BOWDEN DO Jan 19, 2022 07:01
[2022-01-19 07:30] VITALS: BP 138/64
[2022-01-19] MEDS: MEMANTINE 10 MG (NAMENDA) TABLET PO SCH ×2 (08:31→20:39)
[2022-01-19] MEDS: lisINopril 20 MG (PRINIVIL) TABLET PO SCH (08:31)
[2022-01-19] MEDS: hydrALAZINE (APRESOLINE) 25 MG TAB PO SCH ×3 (08:31→20:39)
[2022-01-19] MEDS: LOPERAMIDE 2 MG (IMODIUM) TABLET PO SCH ×4 (08:32→20:39)
[2022-01-19] MEDS: HYDROcodone/APAP 5 MG/325 MG (LORTAB) TAB PO PRN (08:32)
[2022-01-19] MEDS: amLODIPine 5 MG (NORVASC) TAB PO SCH ×2 (08:32→20:39)
[2022-01-19] MEDS: DIPHENOXYLATE/ATROPINE 2.5MG/0.025MG (LOMOTIL) TAB PO SCH ×2 (08:32→20:39)
[2022-01-19] MEDS: polyethylene glycoL POWDER 17 GM (MIRALAX) PACK PO SCH ×2 (09:00→20:40)
[2022-01-19] MEDS: ENOXAPARIN 40 MG/0.4 ML (LOVENOX) SYR SC SCH (10:22)
[2022-01-19 20:00] VITALS: BP 137/56
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
[2022-01-20 05:35] LABS: BASOPHILS % (AUTO) 0 % (0-10); EOSINOPHILS # (AUTO) 0.2 10^3/uL (0.0-0.3); EOSINOPHILS % (AUTO) 5 % (0-10); HEMATOCRIT 29 % (35-52); HEMOGLOBIN 8.9 g/dL (11.5-16.0); LYMPHOCYTES # (AUTO) 1.2 10^3/uL (1.0-4.0); LYMPHOCYTES % (AUTO) 26 % (12-44); MEAN CORPUSCULAR HEMOGLOBIN 25 pg (25-34); MEAN CORPUSCULAR HGB CONC 31 g/dL (32-36); MEAN CORPUSCULAR VOLUME 81 fL (80-99); MEAN PLATELET VOLUME 9.2 fL (9.0-12.2); MONOCYTES # (AUTO) 0.3 10^3/uL (0.0-1.0); MONOCYTES % (AUTO) 7 % (0-12); NEUTROPHILS # (AUTO) 2.8 10^3/uL (1.8-7.8); NEUTROPHILS % (AUTO) 62 % (42-75); PLATELET COUNT 256 10^3/uL (130-400); WHITE BLOOD COUNT 4.5 10^3/uL (4.3-11.0)
[2022-01-20 05:55] LABS: ALBUMIN 2.7 GM/DL (3.2-4.5); BILIRUBIN,TOTAL 0.2 MG/DL (0.1-1.0); CALCIUM 8.1 MG/DL (8.5-10.1); CREATININE SERUM 0.62 MG/DL (0.60-1.30); POTASSIUM 3.5 MMOL/L (3.6-5.0); TOTAL PROTEIN 4.9 GM/DL (6.4-8.2)
[2022-01-20] MEDS: PANTOPRAZOLE 40 MG (PROTONIX) TAB PO SCH (06:16)
[2022-01-20] MEDS: HYDROcodone/APAP 5 MG/325 MG (LORTAB) TAB PO PRN (06:16)
[2022-01-20] MEDS: inSUlin ASPART (NovoLOG) 1 UNIT/0.01 ML (CHARGE PER UNIT) SC SCH ×4 (06:18→20:34)
[2022-01-20] MEDS: polyethylene glycoL POWDER 17 GM (MIRALAX) PACK PO SCH ×2 (07:28→20:31)
[2022-01-20 07:33] VITALS: BP 176/77
[2022-01-20] MEDS: DIPHENOXYLATE/ATROPINE 2.5MG/0.025MG (LOMOTIL) TAB PO SCH ×2 (07:58→20:31)
[2022-01-20] MEDS: amLODIPine 5 MG (NORVASC) TAB PO SCH ×2 (07:58→20:31)
[2022-01-20] MEDS: lisINopril 20 MG (PRINIVIL) TABLET PO SCH (07:58)
[2022-01-20] MEDS: MEMANTINE 10 MG (NAMENDA) TABLET PO SCH ×2 (07:58→20:31)
[2022-01-20] MEDS: LOPERAMIDE 2 MG (IMODIUM) TABLET PO SCH ×4 (07:58→20:31)
[2022-01-20] MEDS: hydrALAZINE (APRESOLINE) 25 MG TAB PO SCH ×3 (07:58→20:31)
[2022-01-20] MEDS: ENOXAPARIN 40 MG/0.4 ML (LOVENOX) SYR SC SCH (09:18)
--- NOTE | 2022-01-20 09:19 | Occupational Ther Daily Note ---
OT Current Status-Daily Note Subjective Pt sitting alert in recliner. Pt agrees to therapy. Pt states pain is a 4/10. Mental Status/Objective Patient Orientation: Person, Confused Acute change in mental status: 0 Inattention: 0 Disorganized thinkin Altered level of consciousness: 0 Pt is demonstrating increased confusion today. ADL-Treatment Pt eats a few eggs for breakfast then refuses to eat or drink any more. Fruit and protein drink left for pt. Nrsg notified. Pt agrees to shower. Pt ambulates using FWW to toilet, CGA. Pt transfers to toilet using grabbars, CGA. Pt mod A in toilet hygiene. Pt ambulated to shower using FWW and transfers to shower bench using grabbars, CGA. Pt sitting on shower bench and completes shower after multiple verbal cues. Pt requires assistance in remembering where she has cleansed. Pt transfers from shower bench to WC using grabbars, CGA. Pt sitting at sink independent in oral care. Pt confused and attempted to put deodorant in mouth. Pt max A in LB dressing. Pt mod A to don bra. Pt set up to don shirt. Pt dependent in footwear. Pt ambulated to recliner using FWW, CGA. Pt left sitting in recliner call light/phone in reach. Safety measures in place. Therapy Code Descriptions/Definitions Functional [place] Measure: 0=Not Assessed/NA 4=Minimal Assistance 1=Total Assistance 5=Supervision or Setup 2=Maximal Assistance 6=Modified [place] 3=Moderate Assistance 7=Complete IndependenceSCALE: Activities may be completed with or without assistive devices. 9-Xqlrqlfkrn-nevokuf completes the activity by him/herself with no assistance from a helper. 5-Set-up or Clean-up Assistance-helper sets up or cleans up; patient completes activity. [place] assists only prior to or following the activity. 4-Supervision or Touching Assistance-helper provides verbal cues and/or touching/steadying and/or contact guard assistance as patient completes activity. Assistance may be provided throughout the activity or intermittently. 3-Partial/Moderate Assistance-helper does LESS THAN HALF the effort. [place] lifts, holds or supports trunk or limbs, but provides less than half the effort. 2-Substantial/Maximal Assistance-helper does MORE THAN HALF the effort. [place] lifts or holds trunk or limbs and provides more than half the effort. 1-Zjwykwyqq-wluatr does ALL the effort. Patient does none of the effort to complete the activity. Or, the assistance of 2 or more helpers is required for the patient to complete the activity. If activity was not attempted, code reason: 7-Patient Refused. 9-Not Applicable-not attempted and the patient did not perform the activity before the current illness, exacerbation or injury. 10-Not Attempted due to Environmental Limitations-(lack of equipment, weather restraints, etc.). 88-Not Attempted due to Medical Conditions or Safety Concerns. Eating (QC): 6 Oral Hygiene (QC): 6 Bathing Location: L Arm, R Arm, L Upper Leg, R Upper Leg, L Lower Leg (including foot), R Lower Leg (including foot), Chest, Abdomen, Buttocks, Perineal Area Shower/Bathe Self (QC): 3 (Mod A due to confusion) Upper Body Dressing (QC): 3 (Mod A to don bra) Lower Body Dressing (QC): 2 On/Off Footwear: 1 Toileting Hygiene (QC): 3 (Mod A) Toilet Transfer (QC): 4 (CGA) Other Treatment Pt completed 2 B UE exercises using yellow theraband, 2 set 10 reps, to strengt hen B UE for daily functional tasks. Skilled instruction was given and multiple verbal cues to stay on tasks. OT Short Term Goals Short Term Goals Time Frame: Jan 17, 2022 Eatin Oral hygiene: 5 Toileting hygiene: 3 Shower/bathe self: 3 Upper body dressin Lower body dressin Putting on/taking off footwear: 2 OT Career Resource Technician Goals Career Resource Technician Goals Time Frame: Jan 24, 2022 Acute change in mental status: 0 Inattention: 0 Disorganized thinkin Altered level of consciousness: 0 Eating (QC): 5 Oral Hygiene (QC): 5 Toileting Hygiene (QC): 4 Shower/Bathe Self (QC): 4 Upper Body Dressing (QC): 3 (set-up for shirt, min assist for bra) Lower Body Dressing (QC): 3 On/Off Footwear (QC): 2 Additional Goals: 1-Demonstrate ADL Tasks, 2-Verbalize Understanding, 3-Impr oveStrength/Pat 1=Demonstrate adherence to instructed precautions during ADL tasks. 2=Patient will verbalize/demonstrate understanding of assistive devices/modifications for ADL. 3=Patient will improve strength/tolerance for activity to enable patient to perform ADL's. OT Education/Plan Problem List/Assessment Assessment: Decreased Activ Tolerance, Decreased Safety Aware, Decreased UE Strength, Impaired Cognition, Impaired Coordination, Impaired Self-Care Skills Discharge Recommendations Plan/Recommendations: Continue POC Treatment Plan/Plan of Care Patient would benefit from OT for education, treatment and training to promote independence in ADL's, mobility, safety and/or upper extremity function for ADL's. Plan of Care: ADL Retraining, Caregiver Training, Cognitive Retraining, Functional Mobility, Group Exercise/Act as Ind, UE Funct Exercise/Act, UE Neuromus Re-Ed/Coord, W/C Management Training Treatment Duration: Jan 24, 2022 Frequency: At least 5 of 7 days/Wk (IRF) Estimated Hrs Per Day: 1.5 hours per day (60-75 minutes per day) Agreement: Yes Rehab Potential: Guarded Time/GCodes Start Time: 07:30 Stop Time: 09:00 Total Time Billed (hr/min): 90 Billed Treatment Time 1 visit ADL 5 (75 min) EX 1 (15 min) BLANCA MO Jan 20, 2022 09:19
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
--- NOTE | 2022-01-20 10:39 | Physical Therapy Daily Note ---
PT Daily Note-Current Subjective Pt sitting in recliner upon arrival. Pt demonstrates some confusion during conversation with MOTOR MECHANIC. Pt agrees to PT. Pain Location: No Pain Reported Section J - Health Conditions 1. Rarely or not at all 2. Occasionally 3. Frequently 4. Almost constantly 8. Unable to answer Pain Effect on Sleep: 0 Pain Interference with Therapy: 3 Pain Interference w/Day-to-Day: 3 Mental Status Patient Orientation: Person, Place Transfers SCALE: Activities may be completed with or without assistive devices. 0-Wfljrxekbl-beingwo completes the activity by him/herself with no assistance from a helper. 5-Set-up or Clean-up Assistance-helper sets up or cleans up; patient completes activity. [place] assists only prior to or following the activity. 4-Supervision or Touching Assistance-helper provides verbal cues and/or touching/steadying and/or contact guard assistance as patient completes activity. Assistance may be provided throughout the activity or intermittently. 3-Partial/Moderate Assistance-helper does LESS THAN HALF the effort. [place] lifts, holds or supports trunk or limbs, but provides less than half the effort. 2-Substantial/Maximal Assistance-helper does MORE THAN HALF the effort. [place] lifts or holds trunk or limbs and provides more than half the effort. 2-Frzdlraon-hgikhc does ALL the effort. Patient does none of the effort to complete the activity. Or, the assistance of 2 or more helpers is required for the patient to complete the activity. If activity was not attempted, code reason: 7-Patient Refused. 9-Not Applicable-not attempted and the patient did not perform the activity before the current illness, exacerbation or injury. 10-Not Attempted due to Environmental Limitations-(lack of equipment, weather restraints, etc.). 88-Not Attempted due to Medical Conditions or Safety Concerns. Sit to Stand (QC): 3 Weight Bearing Full Weight Bearing Full Weight Bearing Gait Training Does the Patient Walk?: Yes Distance: 25', 45', 25', 45' Walk 10 feet (QC): 4 Gait Persons Needed: 1 Gait Assistive Device: FWW VC for keeping FWW close, standing up tall including bringing glut under her, taking bigger steps instead of shuffle feet and keeping WBOS. Wheelchair Training Does the Pt Use a Wheelchair?: Yes Wheel 50 ft with 2 turns (QC): 3 Type of Wheelchair: Manual Exercises Supine Ex: Ankle pumps, Quad Set, Hip abd/add Supine Reps: 10 Treatments Pt completes Supine Ex then sits up for TF. TF to standing declining need for BR. Pt amb. in hallway with several RB in WC. Pt propels WCH in hallway when pt becomes too fatigued to walk. Pt returns to room and TF back to recliner with all needs met, call light in hand. Assessment Current Status: Good Progress Pt increases walking today but needs several RB as pt is fatigued. PT Short Term Goals Short Term Goals Time Frame: Jan 14, 2022 Roll Left & Right: 3 (Fawad) Sit to lyin (Fawad) Lying to sitting on side of be: 3 (Fawad) Sit to stand: 3 (Fawad) Chair/brp-hv-pcsyd transfer: 4 (CGA) Walk 10 feet: 4 (CGA) PT Group Home Goals Word Processor Goals PT Group Home Goals Time Frame: Jan 28, 2022 Roll Left & Right (QC): 4 (SBA) Sit to Lying (QC): 4 (SBA) Lying-Sitting on Side/Bed(QC): 4 (SBA) Sit to Stand (QC): 4 (CGA) Chair/Rll-rs-Aavqw Xfer(QC): 4 (SBA) Toilet Transfer (QC): 4 (SBA) Car Transfer (QC): 4 (CGA) Does the Patient Walk: Yes Walk 10 feet (QC): 4 (SBA) Walk 50ft with 2 Turns (QC): 4 (SBA) Walk 150 ft (QC): 4 (SBA) Walking 10ft on Uneven Surface: 4 (CGA) 1 Step (curb) (QC): 4 (CGA) 4 Steps (QC): 4 (CGA) 12 Steps (QC): 88 Picking up an Object (QC): 4 (CGA) Wheel 50 feet with 2 turns (QC: 9 Wheel 150 feet: 9 PT Plan Problem List Problem List: Activity Tolerance, Functional Strength, Safety Treatment/Plan Treatment Plan: Continue Plan of Care Treatment Plan: Bed Mobility, Education, Functional Activity Pat, Functional Strength, Group Therapy, Gait, Safety, Therapeutic Exercise, Transfers Treatment Duration: Jan 28, 2022 Frequency: At least 5 of 7 days/Wk (IRF) Estimated Hrs Per Day: 1.5 hours per day Patient and/or Family Agrees t: Yes Safety Risks/Education Patient Education: Gait Training, Transfer Techniques, Correct Positioning, Safety Issues Teaching Recipient: Patient Teaching Methods: Discussion Response to Teaching: Reinforcement Needed Time/GCodes Time In: 930 Time Out: 1030 Total Billed Treatment Time: 60 Total Billed Treatment 1, EX (15m), GT x2 (30m) & WCH (15m) OFELIA ALEXANDER MOTOR MECHANIC Jan 20, 2022 10:39
--- NOTE | 2022-01-20 13:29 | Physical Therapy Daily Note ---
PT Daily Note-Current Subjective Pt sitting in recliner upon arrival. Pt declines need for BR. Pt reports feeling uncomfortable sitting how she is and asks to adjust positioning. Pain Section J - Health Conditions 1. Rarely or not at all 2. Occasionally 3. Frequently 4. Almost constantly 8. Unable to answer Pain Effect on Sleep: 0 Pain Interference with Therapy: 3 Pain Interference w/Day-to-Day: 3 Transfers SCALE: Activities may be completed with or without assistive devices. 0-Foooaktabi-riowfcw completes the activity by him/herself with no assistance from a helper. 5-Set-up or Clean-up Assistance-helper sets up or cleans up; patient completes activity. [place] assists only prior to or following the activity. 4-Supervision or Touching Assistance-helper provides verbal cues and/or touching/steadying and/or contact guard assistance as patient completes activity. Assistance may be provided throughout the activity or intermittently. 3-Partial/Moderate Assistance-helper does LESS THAN HALF the effort. [place] lifts, holds or supports trunk or limbs, but provides less than half the effort. 2-Substantial/Maximal Assistance-helper does MORE THAN HALF the effort. [place] lifts or holds trunk or limbs and provides more than half the effort. 0-Whyorkkyz-jbonlt does ALL the effort. Patient does none of the effort to complete the activity. Or, the assistance of 2 or more helpers is required for the patient to complete the activity. If activity was not attempted, code reason: 7-Patient Refused. 9-Not Applicable-not attempted and the patient did not perform the activity before the current illness, exacerbation or injury. 10-Not Attempted due to Environmental Limitations-(lack of equipment, weather restraints, etc.). 88-Not Attempted due to Medical Conditions or Safety Concerns. Weight Bearing Full Weight Bearing Full Weight Bearing Exercises Seated Therapy Exercises: Ankle pumps, Long arc quads, Chair press-ups, Hip flexion, Hamstring Curls Seated Reps: 10 Treatments Pt adjusts position in recliner as VP COMPLIANCE puts recliner down to seated position. Pt completes Seated EX then asks to rest. Pt has all needs met, call light in hand. Assessment Current Status: Good Progress Pt unable to communicate what she needs to feel more comfortable. PT Short Term Goals Short Term Goals Time Frame: Jan 14, 2022 Roll Left & Right: 3 (Fawad) Sit to lyin (Fawad) Lying to sitting on side of be: 3 (Fawad) Sit to stand: 3 (Fawad) Chair/vuu-ym-yexce transfer: 4 (CGA) Walk 10 feet: 4 (CGA) PT State Farm Agent Goals State Farm Agent Goals PT State Farm Agent Goals Time Frame: Jan 28, 2022 Roll Left & Right (QC): 4 (SBA) Sit to Lying (QC): 4 (SBA) Lying-Sitting on Side/Bed(QC): 4 (SBA) Sit to Stand (QC): 4 (CGA) Chair/Xwp-ee-Izyix Xfer(QC): 4 (SBA) Toilet Transfer (QC): 4 (SBA) Car Transfer (QC): 4 (CGA) Does the Patient Walk: Yes Walk 10 feet (QC): 4 (SBA) Walk 50ft with 2 Turns (QC): 4 (SBA) Walk 150 ft (QC): 4 (SBA) Walking 10ft on Uneven Surface: 4 (CGA) 1 Step (curb) (QC): 4 (CGA) 4 Steps (QC): 4 (CGA) 12 Steps (QC): 88 Picking up an Object (QC): 4 (CGA) Wheel 50 feet with 2 turns (QC: 9 Wheel 150 feet: 9 PT Plan Problem List Problem List: Activity Tolerance Treatment/Plan Treatment Plan: Continue Plan of Care Treatment Plan: Bed Mobility, Education, Functional Activity Pat, Functional Strength, Group Therapy, Gait, Safety, Therapeutic Exercise, Transfers Treatment Duration: Jan 28, 2022 Frequency: At least 5 of 7 days/Wk (IRF) Estimated Hrs Per Day: 1.5 hours per day Patient and/or Family Agrees t: Yes Safety Risks/Education Patient Education: Transfer Techniques, Correct Positioning Teaching Recipient: Patient Teaching Methods: Discussion Response to Teaching: Verbalize Understanding Time/GCodes Time In: 1300 Time Out: 1330 Total Billed Treatment Time: 30 Total Billed Treatment 1, EX (20m) & FA (10m) OFELIA ALEXANDER VP COMPLIANCE Jan 20, 2022 13:29
[2022-01-20 19:33] VITALS: BP 167/74
[2022-01-21] MEDS: inSUlin ASPART (NovoLOG) 1 UNIT/0.01 ML (CHARGE PER UNIT) SC SCH ×4 (05:45→20:01)
--- NOTE | 2022-01-21 05:50 | PM&R Progress Note ---
Subjective HPI/CC On Admission Date Seen by Provider: Jan 21, 2022 Time Seen by Provider: 09:00 Subjective/Events-last exam 01/21/2022: Doing well Loose stools at times but overall Lomotil along with scheduled Imodium is working very well Confusion is on/off No pain reported 01/20/2022: Doing well Lomotil is helping her loose stools Blood sugars reviewed Blood pressures are high before meds 01/19/2022: No major issues Lomotil is improving the loose stools Pain controlled but comes and goes Eating well 01/18/2022: Patient having pain on and off Lomotil helping but she did have loose stool today so no severe constipation Check meds and labs 01/17/2022: Improved status Lomotil has been very helpful Monitor for constipation from Imodium and Lomotil 01/16/2022: Patient doing pretty well Discharge is planned to a skilled care facility We will attempt to add Lomotil twice a day as scheduled to help decrease stool frequency 01/15/2022: Pt is doing a little better Nausea, will be given Zofran Imodium will be given scheduled, that is helping loose stools from subtotal colectomy 01/14/2022: Pt is doing about the same Having loose stools, will respond to Imodium Podiatry consult Assisted living will likely be where she needs to go 01/13/2022: Pt is doing pretty well No other concerns Labs reviewed No other major issues 01/12/2022: Doing well Confusion at times Pain at times Imodium working well No other issues 01/11/2022: Doing well Improved cognition today Sleeps a lot CRYSTAL Lopez since she refuses it Imodium scheduled QID is working well for her and it is safe 01/10/2022: Doing about the same Weakness noted by therapy Confusion is labile No falls 01/09/2022: Doing well Ultram started for the pain No falls Improved cognition 01/09/2022: Patient doing better Pain improved No falls Cognition is labile visits often Review of Systems General: Fatigue, Malaise Objective Exam Vital Signs Vital Signs Date Time Temp Pulse Resp B/P (MAP) Pulse Ox O2 Delivery O2 Flow Rate FiO2 01/21/22 20:05 Room Air 01/21/22 19:46 36.5 95 20 114/58 (76) 93 01/21/22 08:43 0.00 Capillary Refill : General Appearance: No Apparent Distress, Chronically ill, Obese HEENT: PERRL/EOMI, Normal ENT Inspection Neck: Normal Inspection, Non Tender, Supple Respiratory: Chest Non Tender, Lungs Clear, Normal Breath Sounds, No Accessory Muscle Use, No Respiratory Distress Cardiovascular: Regular Rate, Rhythm, No Edema, No Gallop, No JVD Gastrointestinal: Normal Bowel Sounds, No Organomegaly, No Pulsatile Mass, Non Tender, Soft Back: Normal Inspection, No CVA Tenderness, No Vertebral Tenderness Extremity: Normal Inspection, Non Tender Neurologic/Psychiatric: Alert, Oriented x3, director hair II-XII Norm as Tested, Depressed Affect, Disoriented Skin: Normal Color, Warm/Dry Lymphatic: No Adenopathy Results/Procedures Lab Patient resulted labs reviewed. FIM Transfers Therapy Code Descriptions/Definitions Functional [place] Measure: 0=Not Assessed/NA 4=Minimal Assistance 1=Total Assistance 5=Supervision or Setup 2=Maximal Assistance 6=Modified [place] 3=Moderate Assistance 7=Complete IndependenceSCALE: Activities may be completed with or without assistive devices. 8-Kijlrspspz-byiiuvh completes the activity by him/herself with no assistance from a helper. 5-Set-up or Clean-up Assistance-helper sets up or cleans up; patient completes activity. [place] assists only prior to or following the activity. 4-Supervision or Touching Assistance-helper provides verbal cues and/or touching/steadying and/or contact guard assistance as patient completes activity. Assistance may be provided throughout the activity or intermittently. 3-Partial/Moderate Assistance-helper does LESS THAN HALF the effort. [place] lifts, holds or supports trunk or limbs, but provides less than half the effort. 2-Substantial/Maximal Assistance-helper does MORE THAN HALF the effort. [place] lifts or holds trunk or limbs and provides more than half the effort. 0-Ksetqqebw-nkluyb does ALL the effort. Patient does none of the effort to complete the activity. Or, the assistance of 2 or more helpers is required for the patient to complete the activity. If activity was not attempted, code reason: 7-Patient Refused. 9-Not Applicable-not attempted and the patient did not perform the activity before the current illness, exacerbation or injury. 10-Not Attempted due to Environmental Limitations-(lack of equipment, weather restraints, etc.). 88-Not Attempted due to Medical Conditions or Safety Concerns. Roll Left to Right (QC): 6 Sit to Lying (QC): 4 Sit to Stand (QC): 3 Chair/Mra-ze-Ejcgi Xfer(QC): 3 Car Transfer (QC): 88 Gait Training Does the Patient Walk?: Yes Distance: 25', 45', 25', 45' Walk 10 feet (QC): 4 Walk 50 ft with 2 Turns(QC): 4 Walk 150 ft (QC): 88 Walking 10ft/uneven surface-QC: 88 Gait Persons Needed: 1 Gait Assistive Device: FWW Wheelchair Training Does the Pt Use a Wheelchair?: Yes Distance: 50'x2 Wheel 50 ft with 2 turns (QC): 3 Wheel 150 ft (QC): 88 Type of Wheelchair: Manual Stair Training 1 Step (curb) (QC): 88 4 Steps (QC): 88 12 Steps (QC): 88 Balance Picking up an Object (QC): 88 ADL-Treatment Eating (QC): 6 Oral Hygiene (QC): 6 Bathing Location: L Arm, R Arm, L Upper Leg, R Upper Leg, L Lower Leg (including foot), R Lower Leg (including foot), Chest, Abdomen, Buttocks, Perineal Area Shower/Bathe Self (QC): 3 (Mod A due to confusion) Upper Body Dressing (QC): 3 Lower Body Dressing (QC): 2 On/Off Footwear (QC): 1 Toileting Hygiene (QC): 3 (Mod A) Toilet Transfer (QC): 4 (CGA) Assessment/Plan Assessment and Plan Assess & Plan/Chief Complaint Assessment: S/p subtotal colectomy w/ileorectal anastamosis POD #31 Small bowel obstruction- Found on Xray (01-01-2022)- Resolved Hypokalemia Colon cancer T2DM HTN-OOC Dementia TBI at 22yo Plan: PT OT Monitor pain Monitor loose stools Monitor delirium 01/08/2022: Imodium Monitor cognitive changes 01/09/2022: Imodium Ultram 01/10/2022: Supportive care Expect labile confusion 01/10/2022: Restart DM med home dosing Monitor elevated BP 01/11/2022: DC Questran Increase BP meds with Hydralazine 01/12/2022: Monitor closely 01/13/2022: Monitor BP and sugar 01/14/2022: Supportive care Pain control 01/15/2022: Supportive care AL at DC 01/16/2022: Add Lomotil to twice a day scheduled for constipation 01/17/2022: Monitor constipation from Lomotil trial 01/18/2022: Continue with Lomotil 01/19/2022: Lomotil Pain control 01/20/2022: Monitor blood pressure and blood sugar 01/21/2022: Monitor loose stools (1) Generalized weakness Status: Acute (2) Colon cancer (3) GI bleed (4) Edema (5) Diabetes (6) Dementia Status: Acute JAMES BOWDEN DO Jan 21, 2022 05:50
[2022-01-21] MEDS: PANTOPRAZOLE 40 MG (PROTONIX) TAB PO SCH (06:13)
[2022-01-21] MEDS: polyethylene glycoL POWDER 17 GM (MIRALAX) PACK PO SCH ×2 (07:16→20:02)
[2022-01-21 07:36] VITALS: BP 145/67
--- NOTE | 2022-01-21 08:00 | Occupational Ther Daily Note ---
OT Current Status-Daily Note Subjective Pt alert in recliner. Pt agrees therapy. No c/o pain at this time. Mental Status/Objective Patient Orientation: Person, Confused, Place Acute change in mental status: 0 Inattention: 2 Disorganized thinkin Altered level of consciousness: 0 ADL-Treatment Pt required verbal cues and encouragement to begin eating then to continue to eat. Pt incontinent of bowel in recliner. Pt demonstrating increased confusion today. Pt ambulated to bathroom using FWW, CGA. Pt transferred to toilet using grabbars, CGA. Pt max A in toilet hygiene. Pt agrees to shower. Pt ambulated with FWW to shower bench using grabbars, CGA. Pt required multiple verbal cues to continue shower. Pt confused and asked where she had cleaned. Pt requires mod A in shower to help cleanse soiled areas. Pt incontinent of bowel in shower 3x. Pt continues to be inconsistent in skill level. Pt transferred from shower bench to , CGA. Pt completed oral care sitting at sink. Pt donned bra mod A and shirt by self after set up. Pt max A in donning LB clothing. Pt dependent in footwear. Pt completed toileting 2x through the duration of OT session. Nrsg notified that pt has had loose stools. Pt ambulated to recliner using FWW, CGA. Pt sitting in recliner call light/ phone in reach. All needs met in room. Therapy Code Descriptions/Definitions Functional [place] Measure: 0=Not Assessed/NA 4=Minimal Assistance 1=Total Assistance 5=Supervision or Setup 2=Maximal Assistance 6=Modified [place] 3=Moderate Assistance 7=Complete IndependenceSCALE: Activities may be completed with or without assistive devices. 0-Ovxyeozcse-yvgtnvz completes the activity by him/herself with no assistance from a helper. 5-Set-up or Clean-up Assistance-helper sets up or cleans up; patient completes activity. [place] assists only prior to or following the activity. 4-Supervision or Touching Assistance-helper provides verbal cues and/or touching/steadying and/or contact guard assistance as patient completes activity. Assistance may be provided throughout the activity or intermittently. 3-Partial/Moderate Assistance-helper does LESS THAN HALF the effort. [place] lifts, holds or supports trunk or limbs, but provides less than half the effort. 2-Substantial/Maximal Assistance-helper does MORE THAN HALF the effort. [place] lifts or holds trunk or limbs and provides more than half the effort. 1-Chwmtivxo-pjzuam does ALL the effort. Patient does none of the effort to complete the activity. Or, the assistance of 2 or more helpers is required for the patient to complete the activity. If activity was not attempted, code reason: 7-Patient Refused. 9-Not Applicable-not attempted and the patient did not perform the activity before the current illness, exacerbation or injury. 10-Not Attempted due to Environmental Limitations-(lack of equipment, weather restraints, etc.). 88-Not Attempted due to Medical Conditions or Safety Concerns. Eating (QC): 4 Oral Hygiene (QC): 6 Bathing Location: L Arm, R Arm, Chest, Abdomen Shower/Bathe Self (QC): 3 (Mod A) Upper Body Dressing (QC): 3 Lower Body Dressing (QC): 2 On/Off Footwear: 1 Toileting Hygiene (QC): 1 Toilet Transfer (QC): 4 OT Short Term Goals Short Term Goals Time Frame: Jan 17, 2022 Eatin Oral hygiene: 5 Toileting hygiene: 3 Shower/bathe self: 3 Upper body dressin Lower body dressin Putting on/taking off footwear: 2 OT Business Risk Analyst Goals Senior Care Goals Time Frame: Jan 24, 2022 Acute change in mental status: 0 Inattention: 0 Disorganized thinkin Altered level of consciousness: 0 Eating (QC): 5 Oral Hygiene (QC): 5 Toileting Hygiene (QC): 4 Shower/Bathe Self (QC): 4 Upper Body Dressing (QC): 3 (set-up for shirt, min assist for bra) Lower Body Dressing (QC): 3 On/Off Footwear (QC): 2 Additional Goals: 1-Demonstrate ADL Tasks, 2-Verbalize Understanding, 3- ImproveStrength/Pat 1=Demonstrate adherence to instructed precautions during ADL tasks. 2=Patient will verbalize/demonstrate understanding of assistive devices/modifications for ADL. 3=Patient will improve strength/tolerance for activity to enable patient to perform ADL's. OT Education/Plan Problem List/Assessment Assessment: Decreased Activ Tolerance, Decreased Safety Aware, Impaired Cognition, Impaired Coordination, Impaired Funct Balance, Impaired Self-Care Skills Discharge Recommendations Plan/Recommendations: Continue POC Treatment Plan/Plan of Care Patient would benefit from OT for education, treatment and training to promote independence in ADL's, mobility, safety and/or upper extremity function for ADL's. Plan of Care: ADL Retraining, Caregiver Training, Cognitive Retraining, Functional Mobility, Group Exercise/Act as Ind, UE Funct Exercise/Act, UE Neuromus Re-Ed/Coord, W/C Management Training Treatment Duration: Jan 24, 2022 Frequency: At least 5 of 7 days/Wk (IRF) Estimated Hrs Per Day: 1.5 hours per day (60-75 minutes per day) Agreement: Yes Rehab Potential: Guarded Time/GCodes Start Time: 07:30 Stop Time: 09:00 Total Time Billed (hr/min): 90 Billed Treatment Time 1 visit ADL 6 (90 min) BLANCA MO Jan 21, 2022 08:00
[2022-01-21] MEDS: cloNIDine 0.1 MG PATCH (CATAPRES TTS) TDSY TD SCH (08:15)
[2022-01-21] MEDS: DIPHENOXYLATE/ATROPINE 2.5MG/0.025MG (LOMOTIL) TAB PO SCH ×2 (08:15→20:01)
[2022-01-21] MEDS: CLONIDINE PATCH REMOVAL TP SCH (08:15)
[2022-01-21] MEDS: LOPERAMIDE 2 MG (IMODIUM) TABLET PO SCH ×4 (08:15→20:01)
[2022-01-21] MEDS: hydrALAZINE (APRESOLINE) 25 MG TAB PO SCH ×3 (08:15→20:01)
[2022-01-21] MEDS: lisINopril 20 MG (PRINIVIL) TABLET PO SCH (08:15)
[2022-01-21] MEDS: MEMANTINE 10 MG (NAMENDA) TABLET PO SCH ×2 (08:15→20:01)
[2022-01-21] MEDS: amLODIPine 5 MG (NORVASC) TAB PO SCH ×2 (08:15→20:01)
[2022-01-21] MEDS: ENOXAPARIN 40 MG/0.4 ML (LOVENOX) SYR SC SCH (09:34)
--- NOTE | 2022-01-21 11:22 | Physical Therapy Daily Note ---
PT Daily Note-Current Subjective Patient sitting in chair upon PT arrival, agreeable to treatment but reports she is very tired. OT reports patient has been incontinent multiple times this morning and was cleaned and had a shower prior to PT. Patient currently rates pain at 0, "I'm just really tired." Pain Section J - Health Conditions 1. Rarely or not at all 2. Occasionally 3. Frequently 4. Almost constantly 8. Unable to answer Pain Effect on Sleep: 0 Pain Interference with Therapy: 0 Pain Interference w/Day-to-Day: 0 Mental Status Patient Orientation: Person Transfers SCALE: Activities may be completed with or without assistive devices. 8-Frynuyftop-xihuxql completes the activity by him/herself with no assistance from a helper. 5-Set-up or Clean-up Assistance-helper sets up or cleans up; patient completes activity. [place] assists only prior to or following the activity. 4-Supervision or Touching Assistance-helper provides verbal cues and/or touching/steadying and/or contact guard assistance as patient completes activity. Assistance may be provided throughout the activity or intermittently. 3-Partial/Moderate Assistance-helper does LESS THAN HALF the effort. [place] lifts, holds or supports trunk or limbs, but provides less than half the effort. 2-Substantial/Maximal Assistance-helper does MORE THAN HALF the effort. [place] lifts or holds trunk or limbs and provides more than half the effort. 4-Kvkkfmszq-zmbmia does ALL the effort. Patient does none of the effort to complete the activity. Or, the assistance of 2 or more helpers is required for the patient to complete the activity. If activity was not attempted, code reason: 7-Patient Refused. 9-Not Applicable-not attempted and the patient did not perform the activity before the current illness, exacerbation or injury. 10-Not Attempted due to Environmental Limitations-(lack of equipment, weather restraints, etc.). 88-Not Attempted due to Medical Conditions or Safety Concerns. Roll Left & Right (QC): 3 Lying to Sitting/Side of Bed(Q: 3 Sit to Stand (QC): 4 Chair/Saz-yz-Linnb Xfer(QC): 4 Toilet Transfer (QC): 4 Weight Bearing Full Weight Bearing Full Weight Bearing Gait Training Does the Patient Walk?: Yes Distance: 50, 50 Walk 10 feet (QC): 4 Walk 50 ft with 2 Turns(QC): 3 Gait Assistive Device: FWW Wheelchair Training Does the Pt Use a Wheelchair?: Yes Wheel 50 ft with 2 turns (QC): 3 Type of Wheelchair: Manual Exercises Supine Ex: Ankle pumps, Quad Set, Glut sets Supine Reps: 20 Seated Therapy Exercises: Long arc quads, Hamstring Curls, Hip abd/add Seated Reps: 20 Assessment Current Status: Poor Progress Patient was given numerous breaks during treatment due to fatigue and patients reports of being very tired after bathing. Patient performs LE therapeutic exercise as listed above. Patient performs all observed bed mobility and transfers with min/CGA. Patient ambulates 50 feet x 2, with FWW, with CGA/Min A, with verbal cues for safety, progression, posture, balance. Patient fatigues quickly during gait and requires w/c for sitting rest break. Patient propels w/c 50 feet with min A and frequent verbal cues. Patient performs transfer training and bed mobility training with min A. Patient supine in bed post treatment with all needs met, nursing notified, call light in hand and in the room. PT Short Term Goals Short Term Goals Time Frame: Jan 14, 2022 Roll Left & Right: 3 (Fawad) Sit to lyin (Fawad) Lying to sitting on side of be: 3 (Fawad) Sit to stand: 3 (Fawad) Chair/amn-ie-vsygc transfer: 4 (CGA) Walk 10 feet: 4 (CGA) PT Chcf Goals Hairspring Studder Goals PT Hairspring Studder Goals Time Frame: Jan 28, 2022 Roll Left & Right (QC): 4 (SBA) Sit to Lying (QC): 4 (SBA) Lying-Sitting on Side/Bed(QC): 4 (SBA) Sit to Stand (QC): 4 (CGA) Chair/Alb-it-Easci Xfer(QC): 4 (SBA) Toilet Transfer (QC): 4 (SBA) Car Transfer (QC): 4 (CGA) Does the Patient Walk: Yes Walk 10 feet (QC): 4 (SBA) Walk 50ft with 2 Turns (QC): 4 (SBA) Walk 150 ft (QC): 4 (SBA) Walking 10ft on Uneven Surface: 4 (CGA) 1 Step (curb) (QC): 4 (CGA) 4 Steps (QC): 4 (CGA) 12 Steps (QC): 88 Picking up an Object (QC): 4 (CGA) Wheel 50 feet with 2 turns (QC: 9 Wheel 150 feet: 9 PT Plan Treatment/Plan Treatment Plan: Continue Plan of Care Treatment Plan: Bed Mobility, Education, Functional Activity Pat, Functional Strength, Group Therapy, Gait, Safety, Therapeutic Exercise, Transfers Treatment Duration: Jan 28, 2022 Frequency: At least 5 of 7 days/Wk (IRF) Estimated Hrs Per Day: 1.5 hours per day Patient and/or Family Agrees t: Yes Safety Risks/Education Patient Education: Gait Training, Transfer Techniques Teaching Recipient: Patient Teaching Methods: Demonstration, Discussion Response to Teaching: Reinforcement Needed Time/GCodes Time In: 930 Time Out: 1030 Total Billed Treatment Time: 60 Total Billed Treatment Visit, Ex (15), Gait (15), FA (30) MAUREEN DÍAZ PT Jan 21, 2022 11:22
--- NOTE | 2022-01-21 13:33 | Physical Therapy Daily Note ---
PT Daily Note-Current Subjective Patient in bed upon PT arrival, agreeable to treatment. Rates pain currently at 0/10, however states "It won't move at all", in reference to her left foot/ankle. Pain Section J - Health Conditions 1. Rarely or not at all 2. Occasionally 3. Frequently 4. Almost constantly 8. Unable to answer Pain Effect on Sleep: 0 Pain Interference with Therapy: 0 Pain Interference w/Day-to-Day: 0 Mental Status Patient Orientation: Person Transfers SCALE: Activities may be completed with or without assistive devices. 8-Drxchweipn-lcivadn completes the activity by him/herself with no assistance from a helper. 5-Set-up or Clean-up Assistance-helper sets up or cleans up; patient completes activity. [place] assists only prior to or following the activity. 4-Supervision or Touching Assistance-helper provides verbal cues and/or touching/steadying and/or contact guard assistance as patient completes activity. Assistance may be provided throughout the activity or intermittently. 3-Partial/Moderate Assistance-helper does LESS THAN HALF the effort. [place] lifts, holds or supports trunk or limbs, but provides less than half the effort. 2-Substantial/Maximal Assistance-helper does MORE THAN HALF the effort. [place] lifts or holds trunk or limbs and provides more than half the effort. 2-Vrsrhljbd-bhpmdn does ALL the effort. Patient does none of the effort to complete the activity. Or, the assistance of 2 or more helpers is required for the patient to complete the activity. If activity was not attempted, code reason: 7-Patient Refused. 9-Not Applicable-not attempted and the patient did not perform the activity before the current illness, exacerbation or injury. 10-Not Attempted due to Environmental Limitations-(lack of equipment, weather restraints, etc.). 88-Not Attempted due to Medical Conditions or Safety Concerns. Roll Left & Right (QC): 3 Lying to Sitting/Side of Bed(Q: 3 Sit to Stand (QC): 3 Chair/Qxo-jr-Obccn Xfer(QC): 4 Weight Bearing Full Weight Bearing Full Weight Bearing Gait Training Does the Patient Walk?: Yes Distance: 60 Walk 10 feet (QC): 4 Walk 50 ft with 2 Turns(QC): 3 Gait Persons Needed: 1 Gait Assistive Device: FWW Exercises Supine Ex: Ankle pumps, Quad Set, Glut sets Supine Reps: 20 Assessment Current Status: Poor Progress Patient lying supine in bed upon PT arrival, agreeable to treatment but protests throughout. Requires max encouragement. Patient performs LE therapeutic exercise as listed above. Patient performs all observed bed mobility and transf ers with min/CGA. Patient ambulates 60 feet, with FWW, with CGA/Min A, with verbal cues for safety, progression, posture, balance. Patient fatigues quickly during gait and requires w/c for sitting rest break. Patient supine in chair post treatment with all needs met, nursing notified, call light in hand. PT Short Term Goals Short Term Goals Time Frame: Jan 14, 2022 Roll Left & Right: 3 (Fawad) Sit to lyin (Fawad) Lying to sitting on side of be: 3 (Fawad) Sit to stand: 3 (Fawad) Chair/pzu-tr-rfujf transfer: 4 (CGA) Walk 10 feet: 4 (CGA) PT Painting Worker Goals Halfway Goals PT Halfway Goals Time Frame: Jan 28, 2022 Roll Left & Right (QC): 4 (SBA) Sit to Lying (QC): 4 (SBA) Lying-Sitting on Side/Bed(QC): 4 (SBA) Sit to Stand (QC): 4 (CGA) Chair/Opy-tk-Kggce Xfer(QC): 4 (SBA) Toilet Transfer (QC): 4 (SBA) Car Transfer (QC): 4 (CGA) Does the Patient Walk: Yes Walk 10 feet (QC): 4 (SBA) Walk 50ft with 2 Turns (QC): 4 (SBA) Walk 150 ft (QC): 4 (SBA) Walking 10ft on Uneven Surface: 4 (CGA) 1 Step (curb) (QC): 4 (CGA) 4 Steps (QC): 4 (CGA) 12 Steps (QC): 88 Picking up an Object (QC): 4 (CGA) Wheel 50 feet with 2 turns (QC: 9 Wheel 150 feet: 9 PT Plan Treatment/Plan Treatment Plan: Continue Plan of Care Treatment Plan: Bed Mobility, Education, Functional Activity Pat, Functional Strength, Group Therapy, Gait, Safety, Therapeutic Exercise, Transfers Treatment Duration: Jan 28, 2022 Frequency: At least 5 of 7 days/Wk (IRF) Estimated Hrs Per Day: 1.5 hours per day Patient and/or Family Agrees t: Yes Safety Risks/Education Patient Education: Gait Training, Transfer Techniques Teaching Recipient: Patient Teaching Methods: Demonstration, Discussion Response to Teaching: Reinforcement Needed Time/GCodes Time In: 1300 Time Out: 1330 Total Billed Treatment Time: 30 Total Billed Treatment Visit, Ex, MAUREEN Estevez PT Jan 21, 2022 13:33
[2022-01-21 19:46] VITALS: BP 114/58
[2022-01-22] MEDS: inSUlin ASPART (NovoLOG) 1 UNIT/0.01 ML (CHARGE PER UNIT) SC SCH ×4 (05:48→21:36)
--- NOTE | 2022-01-22 05:56 | PM&R Progress Note ---
Subjective HPI/CC On Admission Date Seen by Provider: Jan 22, 2022 Time Seen by Provider: 08:30 Subjective/Events-last exam 01/22/2022: No major changes No pain Confusion is baseline SNF at [place] then [place]? 01/21/2022: Doing well Loose stools at times but overall Lomotil along with scheduled Imodium is working very well Confusion is on/off No pain reported 01/20/2022: Doing well Lomotil is helping her loose stools Blood sugars reviewed Blood pressures are high before meds 01/19/2022: No major issues Lomotil is improving the loose stools Pain controlled but comes and goes Eating well 01/18/2022: Patient having pain on and off Lomotil helping but she did have loose stool today so no severe constipation Check meds and labs 01/17/2022: Improved status Lomotil has been very helpful Monitor for constipation from Imodium and Lomotil 01/16/2022: Patient doing pretty well Discharge is planned to a skilled care facility We will attempt to add Lomotil twice a day as scheduled to help decrease stool frequency 01/15/2022: Pt is doing a little better Nausea, will be given Zofran Imodium will be given scheduled, that is helping loose stools from subtotal colectomy 01/14/2022: Pt is doing about the same Having loose stools, will respond to Imodium Podiatry consult Assisted living will likely be where she needs to go 01/13/2022: Pt is doing pretty well No other concerns Labs reviewed No other major issues 01/12/2022: Doing well Confusion at times Pain at times Imodium working well No other issues 01/11/2022: Doing well Improved cognition today [facility] a [facility] [place] [facility] Imodium scheduled QID is working well for her and it is safe 01/10/2022: Doing about the same Weakness noted by therapy Confusion is labile No falls 01/09/2022: Doing well Ultram started for the pain No falls Improved cognition 01/09/2022: Patient doing better Pain improved No falls Cognition is labile visits often Review of Systems General: Fatigue, Malaise Objective Exam Vital Signs Vital Signs Date Time Temp Pulse Resp B/P (MAP) Pulse Ox O2 Delivery O2 Flow Rate FiO2 01/22/22 20:15 98 Room Air 01/22/22 19:50 36.0 92 18 146/65 (92) 01/22/22 08:31 0.00 Capillary Refill : General Appearance: No Apparent Distress, Chronically ill, Obese HEENT: PERRL/EOMI, Normal ENT Inspection Neck: Normal Inspection, Non Tender, Supple Respiratory: Chest Non Tender, Lungs Clear, Normal Breath Sounds, No Accessory Muscle Use, No Respiratory Distress Cardiovascular: Regular Rate, Rhythm, No Edema, No Gallop, No JVD Gastrointestinal: Normal Bowel Sounds, No Organomegaly, No Pulsatile Mass, Non Tender, Soft Back: Normal Inspection, No CVA Tenderness, No Vertebral Tenderness Extremity: Normal Inspection, Non Tender Neurologic/Psychiatric: Alert, Oriented x3, head of music II-XII Norm as Tested, Depressed Affect, Disoriented Skin: Normal Color, Warm/Dry Lymphatic: No Adenopathy Results/Procedures Lab Patient resulted labs reviewed. FIM Transfers Therapy Code Descriptions/Definitions Functional [place] Measure: 0=Not Assessed/NA 4=Minimal Assistance 1=Total Assistance 5=Supervision or Setup 2=Maximal Assistance 6=Modified [place] 3=Moderate Assistance 7=Complete IndependenceSCALE: Activities may be completed with or without assistive devices. 9-Umzbxpbddz-htnxppx completes the activity by him/herself with no assistance from a helper. 5-Set-up or Clean-up Assistance-helper sets up or cleans up; patient completes activity. [place] assists only prior to or following the activity. 4-Supervision or Touching Assistance-helper provides verbal cues and/or touching/steadying and/or contact guard assistance as patient completes activity. Assistance may be provided throughout the activity or intermittently. 3-Partial/Moderate Assistance-helper does LESS THAN HALF the effort. [place] lifts, holds or supports trunk or limbs, but provides less than half the effort. 2-Substantial/Maximal Assistance-helper does MORE THAN HALF the effort. [place] lifts or holds trunk or limbs and provides more than half the effort. 8-Xhxdbnjvm-xyyecr does ALL the effort. Patient does none of the effort to complete the activity. Or, the assistance of 2 or more helpers is required for the patient to complete the activity. If activity was not attempted, code reason: 7-Patient Refused. 9-Not Applicable-not attempted and the patient did not perform the activity befo re the current illness, exacerbation or injury. 10-Not Attempted due to Environmental Limitations-(lack of equipment, weather re straints, etc.). 88-Not Attempted due to Medical Conditions or Safety Concerns. Roll Left to Right (QC): 3 Sit to Lying (QC): 4 Sit to Stand (QC): 3 Chair/Mja-xf-Lcewt Xfer(QC): 4 Car Transfer (QC): 88 Gait Training Does the Patient Walk?: Yes Distance: 60 Walk 10 feet (QC): 4 Walk 50 ft with 2 Turns(QC): 3 Walk 150 ft (QC): 88 Walking 10ft/uneven surface-QC: 88 Gait Persons Needed: 1 Gait Assistive Device: FWW Wheelchair Training Does the Pt Use a Wheelchair?: Yes Distance: 50'x2 Wheel 50 ft with 2 turns (QC): 3 Wheel 150 ft (QC): 88 Type of Wheelchair: Manual Stair Training 1 Step (curb) (QC): 88 4 Steps (QC): 88 12 Steps (QC): 88 Balance Picking up an Object (QC): 88 ADL-Treatment Eating (QC): 4 Oral Hygiene (QC): 6 Bathing Location: L Arm, R Arm, Chest, Abdomen Shower/Bathe Self (QC): 3 (Mod A) Upper Body Dressing (QC): 3 Lower Body Dressing (QC): 2 On/Off Footwear (QC): 1 Toileting Hygiene (QC): 1 Toilet Transfer (QC): 4 Assessment/Plan Assessment and Plan Assess & Plan/Chief Complaint Assessment: S/p subtotal colectomy w/ileorectal anastamosis POD #33 Small bowel obstruction- Found on Xray (01-01-2022)- Resolved Hypokalemia Colon cancer T2DM HTN-OOC Dementia TBI at 22yo Plan: PT OT Monitor pain Monitor loose stools Monitor delirium 01/08/2022: Imodium Monitor cognitive changes 01/09/2022: Imodium Ultram 01/10/2022: Supportive care Expect labile confusion 01/10/2022: Restart DM med home dosing Monitor elevated BP 01/11/2022: DC Questran Increase BP meds with Hydralazine 01/12/2022: Monitor closely 01/13/2022: Monitor BP and sugar 01/14/2022: Supportive care Pain control 01/15/2022: Supportive care [place] at [place] 01/16/2022: Add Lomotil to twice a day scheduled for constipation 01/17/2022: Monitor constipation from Lomotil trial 01/18/2022: Continue with Lomotil 01/19/2022: Lomotil Pain control 01/20/2022: Monitor blood pressure and blood sugar 01/21/2022: Monitor loose stools 01/22/2022: Monitor closely Lomotil and Imodium (1) Generalized weakness Status: Acute (2) Colon cancer (3) GI bleed (4) Edema (5) Diabetes (6) Dementia Status: Acute JAMES BOWDEN DO Jan 22, 2022 05:56
[2022-01-22] MEDS: PANTOPRAZOLE 40 MG (PROTONIX) TAB PO SCH (06:41)
[2022-01-22 07:35] VITALS: BP 136/63
[2022-01-22] MEDS: polyethylene glycoL POWDER 17 GM (MIRALAX) PACK PO SCH ×2 (08:14→20:04)
[2022-01-22] MEDS: LOPERAMIDE 2 MG (IMODIUM) TABLET PO SCH ×4 (08:15→20:04)
[2022-01-22] MEDS: lisINopril 20 MG (PRINIVIL) TABLET PO SCH (08:15)
[2022-01-22] MEDS: amLODIPine 5 MG (NORVASC) TAB PO SCH ×2 (08:15→20:04)
[2022-01-22] MEDS: ENOXAPARIN 40 MG/0.4 ML (LOVENOX) SYR SC SCH (08:15)
[2022-01-22] MEDS: hydrALAZINE (APRESOLINE) 25 MG TAB PO SCH ×3 (08:15→20:04)
[2022-01-22] MEDS: DIPHENOXYLATE/ATROPINE 2.5MG/0.025MG (LOMOTIL) TAB PO SCH ×2 (08:15→20:04)
[2022-01-22] MEDS: MEMANTINE 10 MG (NAMENDA) TABLET PO SCH ×2 (08:15→20:04)
--- NOTE | 2022-01-22 11:19 | Physical Therapy Daily Note ---
PT Daily Note-Current Subjective Pt laying Supine in bed upon arrival. Pt agrees to PT. Pain Location: No Pain Reported Section J - Health Conditions 1. Rarely or not at all 2. Occasionally 3. Frequently 4. Almost constantly 8. Unable to answer Pain Effect on Sleep: 0 Pain Interference with Therapy: 0 Pain Interference w/Day-to-Day: 0 Mental Status Patient Orientation: Person, Confused, Place Transfers SCALE: Activities may be completed with or without assistive devices. 4-Yorsstoezb-qagweml completes the activity by him/herself with no assistance from a helper. 5-Set-up or Clean-up Assistance-helper sets up or cleans up; patient completes activity. [place] assists only prior to or following the activity. 4-Supervision or Touching Assistance-helper provides verbal cues and/or touching/steadying and/or contact guard assistance as patient completes activity. Assistance may be provided throughout the activity or intermittently. 3-Partial/Moderate Assistance-helper does LESS THAN HALF the effort. [place] lifts, holds or supports trunk or limbs, but provides less than half the effort. 2-Substantial/Maximal Assistance-helper does MORE THAN HALF the effort. [place] lifts or holds trunk or limbs and provides more than half the effort. 9-Chlfufozc-qzkjaa does ALL the effort. Patient does none of the effort to complete the activity. Or, the assistance of 2 or more helpers is required for the patient to complete the activity. If activity was not attempted, code reason: 7-Patient Refused. 9-Not Applicable-not attempted and the patient did not perform the activity before the current illness, exacerbation or injury. 10-Not Attempted due to Environmental Limitations-(lack of equipment, weather restraints, etc.). 88-Not Attempted due to Medical Conditions or Safety Concerns. Lying to Sitting/Side of Bed(Q: 4 Sit to Stand (QC): 4 Toilet Transfer (QC): 5 Weight Bearing Full Weight Bearing Full Weight Bearing Gait Training Does the Patient Walk?: Yes Distance: 25' x2 Walk 10 feet (QC): 4 Walk 50 ft with 2 Turns(QC): 4 Gait Persons Needed: 1 Gait Assistive Device: FWW Wheelchair Training Does the Pt Use a Wheelchair?: Yes Type of Wheelchair: Manual Exercises Supine Ex: Ankle pumps, Quad Set, Glut sets, Heel Slides, Straight leg raise, Hip abd/add Supine Reps: 15 Treatments Completes Supine Ex then TF to EOB. Pt stands and amb. to BR. Pt is able to complete toileting and pericare at SBA. Pt returns to EOB to rest then amb. to hallway, takes RB then returns to room to work w/OT. All needs met, pt w/OT for tx. Assessment Current Status: Fair Progress Pt fatigues quickly and needs frequent RB. PT Short Term Goals Short Term Goals Time Frame: Jan 14, 2022 Roll Left & Right: 3 (Fawad) Sit to lyin (Fawad) Lying to sitting on side of be: 3 (Fawad) Sit to stand: 3 (Fawad) Chair/dvh-dr-pokzi transfer: 4 (CGA) Walk 10 feet: 4 (CGA) PT Civil Structural Engineer Goals Care Home Goals PT Civil Structural Engineer Goals Time Frame: Jan 28, 2022 Roll Left & Right (QC): 4 (SBA) Sit to Lying (QC): 4 (SBA) Lying-Sitting on Side/Bed(QC): 4 (SBA) Sit to Stand (QC): 4 (CGA) Chair/Cxo-vb-Eityq Xfer(QC): 4 (SBA) Toilet Transfer (QC): 4 (SBA) Car Transfer (QC): 4 (CGA) Does the Patient Walk: Yes Walk 10 feet (QC): 4 (SBA) Walk 50ft with 2 Turns (QC): 4 (SBA) Walk 150 ft (QC): 4 (SBA) Walking 10ft on Uneven Surface: 4 (CGA) 1 Step (curb) (QC): 4 (CGA) 4 Steps (QC): 4 (CGA) 12 Steps (QC): 88 Picking up an Object (QC): 4 (CGA) Wheel 50 feet with 2 turns (QC: 9 Wheel 150 feet: 9 PT Plan Problem List Problem List: Activity Tolerance, Functional Strength Treatment/Plan Treatment Plan: Continue Plan of Care Treatment Plan: Bed Mobility, Education, Functional Activity Pat, Functional Strength, Group Therapy, Gait, Safety, Therapeutic Exercise, Transfers Treatment Duration: Jan 28, 2022 Frequency: At least 5 of 7 days/Wk (IRF) Estimated Hrs Per Day: 1.5 hours per day Patient and/or Family Agrees t: Yes Safety Risks/Education Patient Education: Gait Training, Transfer Techniques, Correct Positioning, Safety Issues Teaching Recipient: Patient Teaching Methods: Discussion Response to Teaching: Verbalize Understanding Time/GCodes Time In: 900 Time Out: 1000 Total Billed Treatment Time: 60 Total Billed Treatment 1, EX (20m), FA x2 (25m) & GT (15m) OFELIA ALEXANDER MANUFACTURING ENGINEERING TECHNOLOGIST Jan 22, 2022 11:19
--- NOTE | 2022-01-22 11:35 | Occupational Ther Daily Note ---
OT Current Status-Daily Note Subjective Pt alert in recliner. Pt agrees to therapy. No c/o pain at this time. Mental Status/Objective Patient Orientation: Person, Place, Time, Situation Acute change in mental status: 0 Inattention: 2 Disorganized thinkin Altered level of consciousness: 0 ADL-Treatment Pt refusal to shower. Pt completes oral care sitting at sink independent. Pt self propels WC to therapy gym. Pt completed pant donning simulation with encou ragement and increased time. Pt sit to stand from WC to FWW min A. Pt completes fine motor task with cognitive component 3 times with different objects added to grade task up each time. Pt required verbal and tactile cues to stay on task. Pt struggles to stay on task and shows disorganized thoughts irrelevant to session. Pt sit to stand from WC 4x with min A. Pt required assistance and verbal cues to attempt to propel WC to bathroom. Pt transfers to toilet, CGA. Pt completes toilet hygiene min A to cleanse buttocks. Pt ambulates with FWW to EOB. Pt EOB to supine, min A. Pt doffed shoes independently. Pt left lying in bed call light/phone in reach. All needs met in room. Therapy Code Descriptions/Definitions Functional [place] Measure: 0=Not Assessed/NA 4=Minimal Assistance 1=Total Assistance 5=Supervision or Setup 2=Maximal Assistance 6=Modified [place] 3=Moderate Assistance 7=Complete IndependenceSCALE: Activities may be completed with or without assistive devices. 8-Karmmglwvx-ijrrmto completes the activity by him/herself with no assistance from a helper. 5-Set-up or Clean-up Assistance-helper sets up or cleans up; patient completes activity. [place] assists only prior to or following the activity. 4-Supervision or Touching Assistance-helper provides verbal cues and/or touching/steadying and/or contact guard assistance as patient completes activity. Assistance may be provided throughout the activity or intermittently. 3-Partial/Moderate Assistance-helper does LESS THAN HALF the effort. [place] lifts, holds or supports trunk or limbs, but provides less than half the effort. 2-Substantial/Maximal Assistance-helper does MORE THAN HALF the effort. [place] lifts or holds trunk or limbs and provides more than half the effort. 4-Ysoklqkdy-ucmrux does ALL the effort. Patient does none of the effort to complete the activity. Or, the assistance of 2 or more helpers is required for the patient to complete the activity. If activity was not attempted, code reason: 7-Patient Refused. 9-Not Applicable-not attempted and the patient did not perform the activity before the current illness, exacerbation or injury. 10-Not Attempted due to Environmental Limitations-(lack of equipment, weather restraints, etc.). 88-Not Attempted due to Medical Conditions or Safety Concerns. OT Short Term Goals Short Term Goals Time Frame: Jan 17, 2022 Eatin Oral hygiene: 5 Toileting hygiene: 3 Shower/bathe self: 3 Upper body dressin Lower body dressin Putting on/taking off footwear: 2 OT Lead Business Systems Analyst Goals Lead Business Systems Analyst Goals Time Frame: Jan 24, 2022 Acute change in mental status: 0 Inattention: 2 Disorganized thinkin Altered level of consciousness: 0 Eating (QC): 5 Oral Hygiene (QC): 5 Toileting Hygiene (QC): 4 Shower/Bathe Self (QC): 4 Upper Body Dressing (QC): 3 (set-up for shirt, min assist for bra) Lower Body Dressing (QC): 3 On/Off Footwear (QC): 2 Additional Goals: 1-Demonstrate ADL Tasks, 2-Verbalize Understanding, 3- ImproveStrength/Pat 1=Demonstrate adherence to instructed precautions during ADL tasks. 2=Patient will verbalize/demonstrate understanding of assistive devices/modifications for ADL. 3=Patient will improve strength/tolerance for activity to enable patient to perform ADL's. OT Education/Plan Problem List/Assessment Assessment: Decreased Activ Tolerance, Decreased Safety Aware, Decreased UE Strength, Impaired Bed Mobility, Impaired Cognition, Impaired Self-Care Skills Discharge Recommendations Plan/Recommendations: Continue POC Treatment Plan/Plan of Care Patient would benefit from OT for education, treatment and training to promote independence in ADL's, mobility, safety and/or upper extremity function for ADL's. Plan of Care: ADL Retraining, Caregiver Training, Cognitive Retraining, Functional Mobility, Group Exercise/Act as Ind, UE Funct Exercise/Act, UE Neuromus Re-Ed/Coord, W/C Management Training Treatment Duration: Jan 24, 2022 Frequency: At least 5 of 7 days/Wk (IRF) Estimated Hrs Per Day: 1.5 hours per day (60-75 minutes per day) Agreement: Yes Rehab Potential: Guarded Time/GCodes Start Time: 10:00 Stop Time: 11:30 Total Time Billed (hr/min): 90 Billed Treatment Time 1 visit ADL 2 (30 min) EX 4 (60 min) BLANCA MO Jan 22, 2022 11:35
--- NOTE | 2022-01-22 13:34 | Physical Therapy Daily Note ---
PT Daily Note-Current Subjective Pt finishing lunch with Sp present upon arrival. Pt agrees to PT despite report of fatigue. Pain Location: No Pain Reported Section J - Health Conditions 1. Rarely or not at all 2. Occasionally 3. Frequently 4. Almost constantly 8. Unable to answer Pain Effect on Sleep: 0 Pain Interference with Therapy: 0 Pain Interference w/Day-to-Day: 0 Mental Status Patient Orientation: Person, Confused, Place Transfers SCALE: Activities may be completed with or without assistive devices. 0-Xvlsiuveav-aplracj completes the activity by him/herself with no assistance from a helper. 5-Set-up or Clean-up Assistance-helper sets up or cleans up; patient completes activity. [place] assists only prior to or following the activity. 4-Supervision or Touching Assistance-helper provides verbal cues and/or touching/steadying and/or contact guard assistance as patient completes activity. Assistance may be provided throughout the activity or intermittently. 3-Partial/Moderate Assistance-helper does LESS THAN HALF the effort. [place] lifts, holds or supports trunk or limbs, but provides less than half the effort. 2-Substantial/Maximal Assistance-helper does MORE THAN HALF the effort. [place] lifts or holds trunk or limbs and provides more than half the effort. 1-Wapqytnrn-wytqnn does ALL the effort. Patient does none of the effort to complete the activity. Or, the assistance of 2 or more helpers is required for the patient to complete the activity. If activity was not attempted, code reason: 7-Patient Refused. 9-Not Applicable-not attempted and the patient did not perform the activity before the current illness, exacerbation or injury. 10-Not Attempted due to Environmental Limitations-(lack of equipment, weather restraints, etc.). 88-Not Attempted due to Medical Conditions or Safety Concerns. Weight Bearing Full Weight Bearing Full Weight Bearing Exercises Seated Therapy Exercises: Ankle pumps, Long arc quads, Hip flexion, Hip abd/add, Glut set Seated Reps: 15 Treatments As pt finishes lunch, Pt as well as Sp and GROUP THERAPY COUNSELOR discuss pt's perceived progress and limitations that pt demonstrates. Pt completes Seated EX. Pt remains in recliner as pt to see Cancer Physician shortly after tx. All needs met, call light in hand. Assessment Current Status: Fair Progress Redirection needed due to demonstrated behavior. Pt fatigues easily. PT Short Term Goals Short Term Goals Time Frame: Jan 14, 2022 Roll Left & Right: 3 (Fawad) Sit to lyin (Fawad) Lying to sitting on side of be: 3 (Fawad) Sit to stand: 3 (Fawad) Chair/lnz-yb-wxsuo transfer: 4 (CGA) Walk 10 feet: 4 (CGA) PT Mcfp Goals Grinder Operator Automatic Goals PT Mcfp Goals Time Frame: Jan 28, 2022 Roll Left & Right (QC): 4 (SBA) Sit to Lying (QC): 4 (SBA) Lying-Sitting on Side/Bed(QC): 4 (SBA) Sit to Stand (QC): 4 (CGA) Chair/Bpw-ls-Yejcj Xfer(QC): 4 (SBA) Toilet Transfer (QC): 4 (SBA) Car Transfer (QC): 4 (CGA) Does the Patient Walk: Yes Walk 10 feet (QC): 4 (SBA) Walk 50ft with 2 Turns (QC): 4 (SBA) Walk 150 ft (QC): 4 (SBA) Walking 10ft on Uneven Surface: 4 (CGA) 1 Step (curb) (QC): 4 (CGA) 4 Steps (QC): 4 (CGA) 12 Steps (QC): 88 Picking up an Object (QC): 4 (CGA) Wheel 50 feet with 2 turns (QC: 9 Wheel 150 feet: 9 PT Plan Problem List Problem List: Activity Tolerance, Functional Strength Treatment/Plan Treatment Plan: Continue Plan of Care Treatment Plan: Bed Mobility, Education, Functional Activity Pat, Functional Strength, Group Therapy, Gait, Safety, Therapeutic Exercise, Transfers Treatment Duration: Jan 28, 2022 Frequency: At least 5 of 7 days/Wk (IRF) Estimated Hrs Per Day: 1.5 hours per day Patient and/or Family Agrees t: Yes Safety Risks/Education Patient Education: Correct Positioning Teaching Recipient: Patient Teaching Methods: Discussion Response to Teaching: Verbalize Understanding Time/GCodes Time In: 1300 Time Out: 1330 Total Billed Treatment Time: 30 Total Billed Treatment 1, FA (15m) & EX (15m) OFELIA ALEXANDER GROUP THERAPY COUNSELOR Jan 22, 2022 13:34
--- NOTE | 2022-01-22 14:39 | Oncology Consultation ---
Visit Information Visit Information Date of Admission Jan 07, 2022 at 09:25 Attending Physician Mayra Acosta DO Admitting Physician Admitting Physician: Mayra Acosta DO Attending Physician: Mayra Acosta DO Chief Complaint Colon cancer and treatment options Interval History Ms. Martinez is 81 year old white female who had rectal bleeding and colonoscopy noticed multiple lesions. CT of chest, abd/pelvis 12/11/2021 showed no remote mets. She then underwent total colectomy 12/25/2021 and did poorly post opera tion. She was in ICU for 5 days post-op due to hemodynamic unstable. She then stayed on regular medical care unit for 2 weeks because of non-function bowel. She is now transferred to the rehab. We are called to discuss the pathology report and treatment options of her colon cancer. Pt is now able to eat and but still has a lot of diarrhea since the surgery. No pain. The plan is to continue the rehab and then possible discharge to home on 01-29-2022. I consulted the patient on: 01/22/22 14:29 Time Seen by Provider: 13:30 Review of Systems Constitutional: see HPI Health Status Allergies Coded Allergies: Penicillins (Unverified Allergy, Intermediate, Rash, 09/03/21) Sulfa (Sulfonamide Antibiotics) (Unverified Allergy, Intermediate, Rash, 09/03/21) Home Medications Amlodipine Besylate (Amlodipine Besylate) 5 Mg Tablet, 5 MG PO DAILY, #30 Prescribed by: MAYRA ACOSTA on 12/20/213 Aspirin (Aspirin EC) 81 Mg Tablet.dr, 81 MG PO DAILY, (Reported) Calcium Carbonate (Calcium Carbonate) 600 Mg Calcium (1500 Mg) Tablet, 600 MG PO DAILY, (Reported) Diphenhydramine HCl (Diphenhydramine HCl) 25 Mg Capsule, 25 MG PO BID, (Rep orted) Fluticasone Propionate (Flonase Allergy Relief) 50 Mcg/Actuation Dawn.susp, 1-2 SPRAY NSEACH DAILY PRN for CONGESTION, (Reported) Glimepiride (Glimepiride) 1 Mg Tablet, 1 MG PO BID, (Reported) Lisinopril (Lisinopril) 20 Mg Tablet, 20 MG PO DAILY, #90 Prescribed by: MAYRA ACOSTA on 11/27/21 0911 Loperamide HCl (Loperamide) 2 Mg Capsule, 2 MG PO QID PRN for DIARRHEA, (Repo rted) Meclizine HCl (Meclizine HCl) 25 Mg Tablet, 25 MG PO BID, (Reported) Memantine HCl (Memantine HCl) 10 Mg Tablet, 10 MG PO BID, (Reported) Metformin HCl (Metformin HCl) 1,000 Mg Tablet, 1,000 MG PO BID, (Reported) Olanzapine (Olanzapine) 2.5 Mg Tablet, 5 MG PO HS, #30 Prescribed by: MAYRA ACOSTA on 12/20/212122 [place]-3S/Dha/Epa/Fish Oil (Fish Oil [place]-3 Softgel) 980 Mg-253 Mg-647 Mg-1,400 Mg Capsule.dr, 1 EACH PO BID, (Reported) Pantoprazole Sodium (Pantoprazole Sodium) 40 Mg Tablet.dr, 40 MG PO DAILY, #30 Prescribed by: MAYRA ACOSTA on 12/20/212122 Sucralfate (Sucralfate) 1 Gram Tablet, 1 GM PO ACHS, #120 Prescribed by: MAYRA ACOSTA on 12/20/212122 FQJ-Ubmcky-Wlavmh Hx Patient Social History Marrital Status: Employed/Student: retired Smoking Status: Never a Smoker Type Used: Cigarettes 2nd Hand Smoke Exposure: No Recent Hopitalizations: No Have you traveled recently?: No Immunizations Up To Date Tetanus Booster (TDap): Unknown Family Medical History Significant Family History: No Pertinent Family Hx Physical Exam Vital Signs Vital Signs - First Documented 01/16/22 01/16/22 07:30 07:38 Temp 36.7 Pulse 103 Resp 18 B/P (MAP) 162/70 (100) Pulse Ox 87 O2 Delivery Room Air O2 Flow Rate 2.00 Capillary Refill : Height, Weight, BMI Height: '" Weight: lbs. oz. kg; 39.47 BMI Method: General Appearance: No Apparent Distress, Obese HEENT: PERRL/EOMI Respiratory: No Accessory Muscle Use, No Respiratory Distress Gastrointestinal: Non Tender, Soft Extremity: No Calf Tenderness, No Pedal Edema Neurologic/Psychiatric: Alert Data Review Labs Laboratory Tests 01/19/22 15:54: Glucometer 123H 01/19/22 20:35: Glucometer 178H 01/20/22 05:13: Red Blood Count 3.54L, Hemoglobin 8.9L, Hematocrit 29L, Mean Corpuscular Hemoglobin Concent 31L, Potassium Level 3.5L, Glucose Level 151H, Calcium Level 8.1L, Total Protein 4.9L, Albumin 2.7L 01/20/22 05:14: Glucometer 138H 01/20/22 10:58: Glucometer 177H 01/20/22 15:33: Glucometer 163H 01/20/22 20:02: Glucometer 189H 01/21/22 05:41: Glucometer 140H 01/21/22 16:24: Glucometer 151H 01/21/22 19:53: Glucometer 212H 01/22/22 05:44: Glucometer 134H Impression & Plan Impression & Plan Pathology report 12/25/2021: 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 One of 53 lymph nodes positive for metastatic adenocarcinoma. NO macroscopic tumor perforation, NO lymphovascular invasion, NO perineural invasion. All margin free at least 0.3cm. Normal expression of DNA mismatch protein. IMP: 1. 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 2. 81 year old female with mild dementia, ECOG score 2 as of 01-22-2022. 3. Chronic diarrhea since the surgery due to the total colectomy. 4 Other co-morbidity, DM II, HTN, dementia, obese, Plan: 1. According to NCCN guideline stage III low risk patient, pt will need to 3-6 months of chemotherapy. However, pt and family is reluctant to have chemotherapy at this point due to her dementia and diarrhea after the total colectomy. I discussed possible genetic testing with patient and her family today to help us determine the risk of NOT doing chemotherapy and possible other new treatment options under clinical trials. They agreed. They understand that the test will take more than 3 weeks. I will call them to schedule a f/u appointment at cancer center once I have the results back. Family agreed with the plan. 2. Dr Acosta to decide the rehab course and discharge plan. MARLEN WAN MD Jan 22, 2022 14:39
[2022-01-22 19:50] VITALS: BP 146/65
[2022-01-23] MEDS: inSUlin ASPART (NovoLOG) 1 UNIT/0.01 ML (CHARGE PER UNIT) SC SCH ×4 (05:51→20:09)
--- NOTE | 2022-01-23 06:16 | PM&R Progress Note ---
Subjective HPI/CC On Admission Date Seen by Provider: Jan 23, 2022 Time Seen by Provider: 10:30 Subjective/Events-last exam 01/23/2022: No major issues No abdominal pain declines chemotherapy for the patient Loose stools are still present but improved 01/22/2022: No major changes No pain Confusion is baseline SNF at DC then AL? 01/21/2022: Doing well Loose stools at times but overall Lomotil along with scheduled Imodium is working very well Confusion is on/off No pain reported 01/20/2022: Doing well Lomotil is helping her loose stools Blood sugars reviewed Blood pressures are high before meds 01/19/2022: No major issues Lomotil is improving the loose stools Pain controlled but comes and goes Eating well 01/18/2022: Patient having pain on and off Lomotil helping but she did have loose stool today so no severe constipation Check meds and labs 01/17/2022: Improved status Lomotil has been very helpful Monitor for constipation from Imodium and Lomotil 01/16/2022: Patient doing pretty well Discharge is planned to a skilled care facility We will attempt to add Lomotil twice a day as scheduled to help decrease stool frequency 01/15/2022: Pt is doing a little better Nausea, will be given Zofran Imodium will be given scheduled, that is helping loose stools from subtotal colectomy 01/14/2022: Pt is doing about the same Having loose stools, will respond to Imodium Podiatry consult Assisted living will likely be where she needs to go 01/13/2022: Pt is doing pretty well No other concerns Labs reviewed No other major issues 01/12/2022: Doing well Confusion at times Pain at times Imodium working well No other issues 01/11/2022: Doing well Improved cognition today Sleeps a lot DC Jessica since she refuses it Imodium scheduled QID is working well for her and it is safe 01/10/2022: Doing about the same Weakness noted by therapy Confusion is labile No falls 01/09/2022: Doing well Ultram started for the pain No falls Improved cognition 01/09/2022: Patient doing better Pain improved No falls Cognition is labile visits often Review of Systems General: Fatigue, Malaise Gastrointestinal: Diarrhea Neurological: Confusion Objective Exam Vital Signs Vital Signs Date Time Temp Pulse Resp B/P (MAP) Pulse Ox O2 Delivery O2 Flow Rate FiO2 01/23/22 21:05 Room Air 01/23/22 19:40 36.1 94 18 132/61 (84) 100 2.00 Capillary Refill : General Appearance: No Apparent Distress, Chronically ill, Obese HEENT: PERRL/EOMI, Normal ENT Inspection Neck: Normal Inspection, Non Tender, Supple Respiratory: Chest Non Tender, Lungs Clear, Normal Breath Sounds, No Accessory Muscle Use, No Respiratory Distress Cardiovascular: Regular Rate, Rhythm, No Edema, No Gallop, No JVD Gastrointestinal: Normal Bowel Sounds, No Organomegaly, No Pulsatile Mass, Non Tender, Soft Back: Normal Inspection, No CVA Tenderness, No Vertebral Tenderness Extremity: Normal Inspection, Non Tender Neurologic/Psychiatric: Alert, Oriented x3, 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 FIM Transfers Therapy Code Descriptions/Definitions Functional [place] Measure: 0=Not Assessed/NA 4=Minimal Assistance 1=Total Assistance 5=Supervision or Setup 2=Maximal Assistance 6=Modified [place] 3=Moderate Assistance 7=Complete IndependenceSCALE: Activities may be completed with or without assistive devices. 3-Ujxxjkwyyt-knzdzdc completes the activity by him/herself with no assistance from a helper. 5-Set-up or Clean-up Assistance-helper sets up or cleans up; patient completes activity. [place] assists only prior to or following the activity. 4-Supervision or Touching Assistance-helper provides verbal cues and/or touching/steadying and/or contact guard assistance as patient completes activity. Assistance may be provided throughout the activity or intermittently. 3-Partial/Moderate Assistance-helper does LESS THAN HALF the effort. [place] lifts, holds or supports trunk or limbs, but provides less than half the effort. 2-Substantial/Maximal Assistance-helper does MORE THAN HALF the effort. [place] lifts or holds trunk or limbs and provides more than half the effort. 1-Rajukmkar-arzmlx does ALL the effort. Patient does none of the effort to complete the activity. Or, the assistance of 2 or more helpers is required for the patient to complete the activity. If activity was not attempted, code reason: 7-Patient Refused. 9-Not Applicable-not attempted and the patient did not perform the activity before the current illness, exacerbation or injury. 10-Not Attempted due to Environmental Limitations-(lack of equipment, weather restraints, etc.). 88-Not Attempted due to Medical Conditions or Safety Concerns. Roll Left to Right (QC): 3 Sit to Lying (QC): 4 Sit to Stand (QC): 4 Chair/Zrt-ig-Epvle Xfer(QC): 4 Car Transfer (QC): 88 Gait Training Does the Patient Walk?: Yes Distance: 25' x2 Walk 10 feet (QC): 4 Walk 50 ft with 2 Turns(QC): 4 Walk 150 ft (QC): 88 Walking 10ft/uneven surface-QC: 88 Gait Persons Needed: 1 Gait Assistive Device: FWW Wheelchair Training Does the Pt Use a Wheelchair?: Yes Distance: 50'x2 Wheel 50 ft with 2 turns (QC): 3 Wheel 150 ft (QC): 88 Type of Wheelchair: Manual Stair Training 1 Step (curb) (QC): 88 4 Steps (QC): 88 12 Steps (QC): 88 Balance Picking up an Object (QC): 88 ADL-Treatment Eating (QC): 4 Oral Hygiene (QC): 6 Bathing Location: L Arm, R Arm, Chest, Abdomen Shower/Bathe Self (QC): 3 (Mod A) Upper Body Dressing (QC): 3 Lower Body Dressing (QC): 2 On/Off Footwear (QC): 1 Toileting Hygiene (QC): 1 Toilet Transfer (QC): 4 Assessment/Plan Assessment and Plan Assess & Plan/Chief Complaint Assessment: S/p subtotal colectomy w/ileorectal anastamosis POD #35 Small bowel obstruction- Found on Xray (01-01-2022)- Resolved Hypokalemia Colon cancer T2DM HTN-OOC Dementia TBI at 22yo Plan: PT OT Monitor pain Monitor loose stools Monitor delirium 01/08/2022: Imodium Monitor cognitive changes 01/09/2022: Imodium Ultram 01/10/2022: Supportive care Expect labile confusion 01/10/2022: Restart DM med home dosing Monitor elevated BP 01/11/2022: DC Questran Increase BP meds with Hydralazine 01/12/2022: Monitor closely 01/13/2022: Monitor BP and sugar 01/14/2022: Supportive care Pain control 01/15/2022: Supportive care AL at DC 01/16/2022: Add Lomotil to twice a day scheduled for constipation 01/17/2022: Monitor constipation from Lomotil trial 01/18/2022: Continue with Lomotil 01/19/2022: Lomotil Pain control 01/20/2022: Monitor blood pressure and blood sugar 01/21/2022: Monitor loose stools 01/22/2022: Monitor closely Lomotil and Imodium 01/23/2022: Monitor closely Fall risk (1) Generalized weakness Status: Acute (2) Colon cancer (3) GI bleed (4) Edema (5) Diabetes (6) Dementia Status: Acute JAMES BOWDEN DO Jan 23, 2022 06:16
[2022-01-23] MEDS: PANTOPRAZOLE 40 MG (PROTONIX) TAB PO SCH (06:36)
[2022-01-23 07:25] VITALS: BP 178/73
[2022-01-23] MEDS: polyethylene glycoL POWDER 17 GM (MIRALAX) PACK PO SCH ×2 (07:31→20:00)
[2022-01-23] MEDS: MEMANTINE 10 MG (NAMENDA) TABLET PO SCH ×2 (07:38→20:00)
[2022-01-23] MEDS: DIPHENOXYLATE/ATROPINE 2.5MG/0.025MG (LOMOTIL) TAB PO SCH ×2 (07:38→20:00)
[2022-01-23] MEDS: amLODIPine 5 MG (NORVASC) TAB PO SCH ×2 (07:38→20:00)
[2022-01-23] MEDS: LOPERAMIDE 2 MG (IMODIUM) TABLET PO SCH ×4 (07:38→20:00)
[2022-01-23] MEDS: hydrALAZINE (APRESOLINE) 25 MG TAB PO SCH ×3 (07:38→20:00)
[2022-01-23] MEDS: lisINopril 20 MG (PRINIVIL) TABLET PO SCH (07:38)
--- NOTE | 2022-01-23 09:23 | Physical Therapy Daily Note ---
PT Daily Note-Current Subjective Patient in recliner pre tx, agrees to PT, has no complaints of pain at the beginning of tx but significant knee pain after and during tx. Pain Section J - Health Conditions 1. Rarely or not at all 2. Occasionally 3. Frequently 4. Almost constantly 8. Unable to answer Pain Effect on Sleep: 1 Pain Interference with Therapy: 4 Pain Interference w/Day-to-Day: 4 Appearance Patient in recliner post tx with nurse call, phone, tray, all needs met, chair alarm on. Mental Status Patient Orientation: Person, Confused Transfers SCALE: Activities may be completed with or without assistive devices. 6-Qfqggwlqfn-nslzibx completes the activity by him/herself with no assistance from a helper. 5-Set-up or Clean-up Assistance-helper sets up or cleans up; patient completes activity. [place] assists only prior to or following the activity. 4-Supervision or Touching Assistance-helper provides verbal cues and/or touching/steadying and/or contact guard assistance as patient completes activity. Assistance may be provided throughout the activity or intermittently. 3-Partial/Moderate Assistance-helper does LESS THAN HALF the effort. [place] lifts, holds or supports trunk or limbs, but provides less than half the effort. 2-Substantial/Maximal Assistance-helper does MORE THAN HALF the effort. [place] lifts or holds trunk or limbs and provides more than half the effort. 2-Lqkhmsmuf-idswai does ALL the effort. Patient does none of the effort to complete the activity. Or, the assistance of 2 or more helpers is required for the patient to complete the activity. If activity was not attempted, code reason: 7-Patient Refused. 9-Not Applicable-not attempted and the patient did not perform the activity before the current illness, exacerbation or injury. 10-Not Attempted due to Environmental Limitations-(lack of equipment, weather restraints, etc.). 88-Not Attempted due to Medical Conditions or Safety Concerns. Sit to Stand (QC): 3 Chair/Jqs-qu-Cjgfw Xfer(QC): 4 Patient occasionally needs assist guiding walker, cues for foot placement and safety, tends to drag feet across the floor. Weight Bearing Full Weight Bearing Full Weight Bearing Gait Training Distance: 30'x3, 20' Walk 10 feet (QC): 4 Gait Persons Needed: 1 Gait Assistive Device: FWW very slow ambulation, antalgic, poor foot clearance and step through Wheelchair Training Does the Pt Use a Wheelchair?: Yes Wheel 50 ft with 2 turns (QC): 3 Type of Wheelchair: Manual 100', needed several rest breaks, has trouble using arms and legs due to pain Exercises Seated Therapy Exercises: Ankle pumps, Hip flexion, Hip abd/add (with ball and RTB) Seated Reps: 20 Standing: Heel/toe raises, Step-ups (toe taps on 4" step) Standing Reps: 15 LAQ alternating for 5 min NuStep Minutes: 15 NuStep Workload: 4 Treatments transfers, ambulation, functional strengthening Assessment Current Status: Poor Progress No change in mobility. Attempted supine exercises but patient refused to lay down. Patient needs frequent rest breaks. PT Short Term Goals Short Term Goals Time Frame: Jan 14, 2022 Roll Left & Right: 3 (Fawad) Sit to lyin (Fawad) Lying to sitting on side of be: 3 (Fawad) Sit to stand: 3 (Fawad) Chair/kid-fe-fgorp transfer: 4 (CGA) Walk 10 feet: 4 (CGA) PT Skilled Nursing Goals Skilled Nursing Goals PT Finishing Manager Goals Time Frame: Jan 28, 2022 Roll Left & Right (QC): 4 (SBA) Sit to Lying (QC): 4 (SBA) Lying-Sitting on Side/Bed(QC): 4 (SBA) Sit to Stand (QC): 4 (CGA) Chair/Bkq-ho-Uasqr Xfer(QC): 4 (SBA) Toilet Transfer (QC): 4 (SBA) Car Transfer (QC): 4 (CGA) Does the Patient Walk: Yes Walk 10 feet (QC): 4 (SBA) Walk 50ft with 2 Turns (QC): 4 (SBA) Walk 150 ft (QC): 4 (SBA) Walking 10ft on Uneven Surface: 4 (CGA) 1 Step (curb) (QC): 4 (CGA) 4 Steps (QC): 4 (CGA) 12 Steps (QC): 88 Picking up an Object (QC): 4 (CGA) Wheel 50 feet with 2 turns (QC: 9 Wheel 150 feet: 9 PT Plan Problem List Problem List: Activity Tolerance, Functional Strength, Safety, Balance, Gait, Transfer, Bed Mobility, ROM Treatment/Plan Treatment Plan: Continue Plan of Care Treatment Plan: Bed Mobility, Education, Functional Activity Pat, Functional Strength, Group Therapy, Gait, Safety, Therapeutic Exercise, Transfers Treatment Duration: Jan 28, 2022 Frequency: At least 5 of 7 days/Wk (IRF) Estimated Hrs Per Day: 1.5 hours per day Patient and/or Family Agrees t: Yes Safety Risks/Education Patient Education: Gait Training, Transfer Techniques, Correct Positioning, W/C Management, Safety Issues Teaching Recipient: Patient Teaching Methods: Demonstration, Discussion Response to Teaching: Reinforcement Needed Time/GCodes Time In: 0800 Time Out: 929 Total Billed Treatment Time: 30 Total Billed Treatment 1 visit EX 45' FA 45' EMIL NOWAK PT Jan 23, 2022 09:23
[2022-01-23] MEDS: ENOXAPARIN 40 MG/0.4 ML (LOVENOX) SYR SC SCH (10:55)
--- NOTE | 2022-01-23 11:24 | Occupational Ther Daily Note ---
OT Current Status-Daily Note Subjective Pt alert in recliner. Pt agrees to therapy. No c/o pain at this time. Mental Status/Objective Patient Orientation: Person, Confused, Place, Time, Situation Acute change in mental status: 0 Inattention: 2 Disorganized thinkin Altered level of consciousness: 0 ADL-Treatment Pt agrees to shower. Pt ambulates with FWW to toilet. Pt transfers to toilet using grabbars, CGA. Pt mod A in toilet hygiene assist to help cleanse buttocks and hike pants over L hip then able to hike over R hip by self. Pt ambulates using FWW to shower bench. Pt doffs UB and LB clothing independent. Pt min A to doff shoes. Pt dependent in doffing socks. Pt completed 100% of shower sitting on shower bench, min A for verbal cues. Pt demonstrated aggression when needing verbal reminders. Pt transfers from shower bench to WC, CGA using grabbars. Pt independent in oral care/personal hygiene sitting at sink. After set up pt donned shirt and bra. Pt mod A to don LB clothing needing help with threading legs through pants and CGA to hike over hips. Pt dependent in footwear. Pt ambulated using FWW to recliner. Pt demonstrates confusion throughout session. Pt left in recliner call light/phone in reach. All needs met in room. Safety measures in place. Therapy Code Descriptions/Definitions Functional [place] Measure: 0=Not Assessed/NA 4=Minimal Assistance 1=Total Assistance 5=Supervision or Setup 2=Maximal Assistance 6=Modified [place] 3=Moderate Assistance 7=Complete IndependenceSCALE: Activities may be completed with or without assistive devices. 9-Mwrshmxvks-kaykdgv completes the activity by him/herself with no assistance from a helper. 5-Set-up or Clean-up Assistance-helper sets up or cleans up; patient completes activity. [place] assists only prior to or following the activity. 4-Supervision or Touching Assistance-helper provides verbal cues and/or touching/steadying and/or contact guard assistance as patient completes activity. Assistance may be provided throughout the activity or intermittently. 3-Partial/Moderate Assistance-helper does LESS THAN HALF the effort. Portal lifts, holds or supports trunk or limbs, but provides less than half the effort. 2-Substantial/Maximal Assistance-helper does MORE THAN HALF the effort. Portal lifts or holds trunk or limbs and provides more than half the effort. 0-Axcvnfaat-pzxgkl does ALL the effort. Patient does none of the effort to complete the activity. Or, the assistance of 2 or more helpers is required for the patient to complete the activity. If activity was not attempted, code reason: 7-Patient Refused. 9-Not Applicable-not attempted and the patient did not perform the activity before the current illness, exacerbation or injury. 10-Not Attempted due to Environmental Limitations-(lack of equipment, weather restraints, etc.). 88-Not Attempted due to Medical Conditions or Safety Concerns. Eating (QC): 6 Oral Hygiene (QC): 6 Bathing Location: L Arm, R Arm, L Upper Leg, R Upper Leg, L Lower Leg (including foot), R Lower Leg (including foot), Chest, Abdomen, Buttocks, Perineal Area Shower/Bathe Self (QC): 3 Upper Body Dressing (QC): 5 Lower Body Dressing (QC): 5 On/Off Footwear: 1 Toileting Hygiene (QC): 3 Toilet Transfer (QC): 4 Other Treatment Pt completed 3 B UE exercises 3 sets 10 reps, using yellow theraband to strengthen B UE for daily functional tasks. Skilled instruction given and demonstration and verbal cues needed throughout. Pt completed fine/gross motor task with cognition component to strengthen pinch/labor conciliator strength for ADL's. Education OT Patient Education: Energy conservation Teaching Recipient: Patient Teaching Methods: Demonstration, Discussion Response to Teaching: Verbalize Understanding, Return Demonstration, Reinforcement Needed OT Short Term Goals Short Term Goals Time Frame: Jan 17, 2022 Eatin Oral hygiene: 5 Toileting hygiene: 3 Shower/bathe self: 3 Upper body dressin Lower body dressin Putting on/taking off footwear: 2 OT [facility] Goals Lotus Notes Developer Goals Time Frame: Jan 24, 2022 Acute change in mental status: 0 Inattention: 2 Disorganized thinkin Altered level of consciousness: 0 Eating (QC): 5 Oral Hygiene (QC): 5 Toileting Hygiene (QC): 4 Shower/Bathe Self (QC): 4 Upper Body Dressing (QC): 3 (set-up for shirt, min assist for bra) Lower Body Dressing (QC): 3 On/Off Footwear (QC): 2 Additional Goals: 1-Demonstrate ADL Tasks, 2-Verbalize Understanding, 3- ImproveStrength/Pat 1=Demonstrate adherence to instructed precautions during ADL tasks. 2=Patient will verbalize/demonstrate understanding of assistive devices/modifications for ADL. 3=Patient will improve strength/tolerance for activity to enable patient to perform ADL's. OT Education/Plan Problem List/Assessment Assessment: Decreased Activ Tolerance, Decreased Safety Aware, Decreased UE Strength, Impaired Cognition, Impaired Coordination, Impaired Funct Balance, Impaired Self-Care Skills Discharge Recommendations Plan/Recommendations: Continue POC Treatment Plan/Plan of Care Patient would benefit from OT for education, treatment and training to promote independence in ADL's, mobility, safety and/or upper extremity function for ADL's. Plan of Care: ADL Retraining, Caregiver Training, Cognitive Retraining, Functional Mobility, Group Exercise/Act as Ind, UE Funct Exercise/Act, UE Neuromus Re-Ed/Coord, W/C Management Training Treatment Duration: Jan 24, 2022 Frequency: At least 5 of 7 days/Wk (IRF) Estimated Hrs Per Day: 1.5 hours per day (60-75 minutes per day) Agreement: Yes Rehab Potential: Guarded Time/GCodes Start Time: 09:45 Stop Time: 11:15 Total Time Billed (hr/min): 90 Billed Treatment Time 1 visit ADL 4 (60 min) EX 2 (30 min) BLANCA MO Jan 23, 2022 11:24
[2022-01-23 13:21] VITALS: BP 144/67
[2022-01-23 19:40] VITALS: BP 132/61
--- NOTE | 2022-01-24 05:33 | PM&R Progress Note ---
Subjective HPI/CC On Admission Date Seen by Provider: Jan 24, 2022 Time Seen by Provider: 12:30 Subjective/Events-last exam 01/24/2022: No major events Participating with therapy Loose stools minimized with meds 01/23/2022: No major issues No abdominal pain declines chemotherapy for the patient Loose stools are still present but improved 01/22/2022: No major changes No pain Confusion is baseline SNF at DC then AL? 01/21/2022: Doing well Loose stools at times but overall Lomotil along with scheduled Imodium is working very well Confusion is on/off No pain reported 01/20/2022: Doing well Lomotil is helping her loose stools Blood sugars reviewed Blood pressures are high before meds 01/19/2022: No major issues Lomotil is improving the loose stools Pain controlled but comes and goes Eating well 01/18/2022: Patient having pain on and off Lomotil helping but she did have loose stool today so no severe constipation Check meds and labs 01/17/2022: Improved status Lomotil has been very helpful Monitor for constipation from Imodium and Lomotil 01/16/2022: Patient doing pretty well Discharge is planned to a skilled care facility We will attempt to add Lomotil twice a day as scheduled to help decrease stool frequency 01/15/2022: Pt is doing a little better Nausea, will be given Zofran Imodium will be given scheduled, that is helping loose stools from subtotal colectomy 01/14/2022: Pt is doing about the same Having loose stools, will respond to Imodium Podiatry consult Assisted living will likely be where she needs to go 01/13/2022: Pt is doing pretty well No other concerns Labs reviewed No other major issues 01/12/2022: Doing well Confusion at times Pain at times Imodium working well No other issues 01/11/2022: Doing well Improved cognition today Sleeps a lot DC Jessica since she refuses it Imodium scheduled QID is working well for her and it is safe 01/10/2022: Doing about the same Weakness noted by therapy Confusion is labile No falls 01/09/2022: Doing well Ultram started for the pain No falls Improved cognition 01/09/2022: Patient doing better Pain improved No falls Cognition is labile visits often Review of Systems General: Fatigue, Malaise Gastrointestinal: Diarrhea Objective Exam Vital Signs Vital Signs Date Time Temp Pulse Resp B/P (MAP) Pulse Ox O2 Delivery O2 Flow Rate FiO2 01/24/22 20:05 Room Air 01/24/22 20:03 36.5 100 20 124/62 (82) 96 01/23/22 19:40 2.00 Capillary Refill : General Appearance: No Apparent Distress, Chronically ill, Obese HEENT: PERRL/EOMI, Normal ENT Inspection Neck: Normal Inspection, Non Tender, Supple Respiratory: Chest Non Tender, Lungs Clear, Normal Breath Sounds, No Accessory Muscle Use, No Respiratory Distress Cardiovascular: Regular Rate, Rhythm, No Edema, No Gallop, No JVD Gastrointestinal: Normal Bowel Sounds, No Organomegaly, No Pulsatile Mass, Non Tender, Soft Back: Normal Inspection, No CVA Tenderness, No Vertebral Tenderness Extremity: Normal Inspection, Non Tender Neurologic/Psychiatric: Alert, Oriented x3, nitroglycerin supervisor II-XII Norm as Tested, Depressed Affect, Disoriented Skin: Normal Color, Warm/Dry Lymphatic: No Adenopathy Results/Procedures Lab Patient resulted labs reviewed. FIM Transfers Therapy Code Descriptions/Definitions Functional [place] Measure: 0=Not Assessed/NA 4=Minimal Assistance 1=Total Assistance 5=Supervision or Setup 2=Maximal Assistance 6=Modified [place] 3=Moderate Assistance 7=Complete IndependenceSCALE: Activities may be completed with or without assistive devices. 1-Fscldlmssw-ouaulwp completes the activity by him/herself with no assistance from a helper. 5-Set-up or Clean-up Assistance-helper sets up or cleans up; patient completes activity. [place] assists only prior to or following the activity. 4-Supervision or Touching Assistance-helper provides verbal cues and/or touching/steadying and/or contact guard assistance as patient completes activity. Assistance may be provided throughout the activity or intermittently. 3-Partial/Moderate Assistance-helper does LESS THAN HALF the effort. [place] lifts, holds or supports trunk or limbs, but provides less than half the effort. 2-Substantial/Maximal Assistance-helper does MORE THAN HALF the effort. [place] lifts or holds trunk or limbs and provides more than half the effort. 7-Tovnrcywl-zpglqi does ALL the effort. Patient does none of the effort to complete the activity. Or, the assistance of 2 or more helpers is required for the patient to complete the activity. If activity was not attempted, code reason: 7-Patient Refused. 9-Not Applicable-not attempted and the patient did not perform the activity before the current illness, exacerbation or injury. 10-Not Attempted due to Environmental Limitations-(lack of equipment, weather restraints, etc.). 88-Not Attempted due to Medical Conditions or Safety Concerns. Roll Left to Right (QC): 3 Sit to Lying (QC): 4 Sit to Stand (QC): 3 Chair/Kta-jg-Bvmql Xfer(QC): 4 Car Transfer (QC): 88 Gait Training Does the Patient Walk?: Yes Distance: 30'x3, 20' Walk 10 feet (QC): 4 Walk 50 ft with 2 Turns(QC): 4 Walk 150 ft (QC): 88 Walking 10ft/uneven surface-QC: 88 Gait Persons Needed: 1 Gait Assistive Device: FWW Wheelchair Training Does the Pt Use a Wheelchair?: Yes Distance: 50'x2 Wheel 50 ft with 2 turns (QC): 3 Wheel 150 ft (QC): 88 Type of Wheelchair: Manual Stair Training 1 Step (curb) (QC): 88 4 Steps (QC): 88 12 Steps (QC): 88 Balance Picking up an Object (QC): 88 ADL-Treatment Eating (QC): 6 Oral Hygiene (QC): 6 Bathing Location: L Arm, R Arm, L Upper Leg, R Upper Leg, L Lower Leg (including foot), R Lower Leg (including foot), Chest, Abdomen, Buttocks, Perineal Area Shower/Bathe Self (QC): 3 Upper Body Dressing (QC): 5 Lower Body Dressing (QC): 5 On/Off Footwear (QC): 1 Toileting Hygiene (QC): 3 Toilet Transfer (QC): 4 Assessment/Plan Assessment and Plan Assess & Plan/Chief Complaint Assessment: S/p subtotal colectomy w/ileorectal anastamosis POD #36 Small bowel obstruction- Found on Xray (01-01-2022)- Resolved Hypokalemia Colon cancer T2DM HTN-OOC Dementia TBI at 22yo Plan: PT OT Monitor pain Monitor loose stools Monitor delirium 01/08/2022: Imodium Monitor cognitive changes 01/09/2022: Imodium Ultram 01/10/2022: Supportive care Expect labile confusion 01/10/2022: Restart DM med home dosing Monitor elevated BP 01/11/2022: DC Questran Increase BP meds with Hydralazine 01/12/2022: Monitor closely 01/13/2022: Monitor BP and sugar 01/14/2022: Supportive care Pain control 01/15/2022: Supportive care AL at DC 01/16/2022: Add Lomotil to twice a day scheduled for constipation 01/17/2022: Monitor constipation from Lomotil trial 01/18/2022: Continue with Lomotil 01/19/2022: Lomotil Pain control 01/20/2022: Monitor blood pressure and blood sugar 01/21/2022: Monitor loose stools 01/22/2022: Monitor closely Lomotil and Imodium 01/23/2022: Monitor closely Fall risk 01/24/2022: Monitor closely (1) Generalized weakness Status: Acute (2) Colon cancer (3) GI bleed (4) Edema (5) Diabetes (6) Dementia Status: Acute JAMES BOWDEN DO Jan 24, 2022 05:33
[2022-01-24] MEDS: inSUlin ASPART (NovoLOG) 1 UNIT/0.01 ML (CHARGE PER UNIT) SC SCH ×4 (05:40→20:12)
[2022-01-24] MEDS: PANTOPRAZOLE 40 MG (PROTONIX) TAB PO SCH (06:02)
[2022-01-24 07:05] VITALS: BP 147/67
[2022-01-24] MEDS: MEMANTINE 10 MG (NAMENDA) TABLET PO SCH ×2 (07:24→20:11)
[2022-01-24] MEDS: polyethylene glycoL POWDER 17 GM (MIRALAX) PACK PO SCH ×2 (07:24→20:11)
[2022-01-24] MEDS: DIPHENOXYLATE/ATROPINE 2.5MG/0.025MG (LOMOTIL) TAB PO SCH ×2 (07:24→20:11)
[2022-01-24] MEDS: hydrALAZINE (APRESOLINE) 25 MG TAB PO SCH ×3 (07:24→20:11)
[2022-01-24] MEDS: LOPERAMIDE 2 MG (IMODIUM) TABLET PO SCH ×4 (07:24→20:11)
[2022-01-24] MEDS: lisINopril 20 MG (PRINIVIL) TABLET PO SCH (07:24)
[2022-01-24] MEDS: amLODIPine 5 MG (NORVASC) TAB PO SCH ×2 (07:25→20:11)
[2022-01-24] MEDS: ENOXAPARIN 40 MG/0.4 ML (LOVENOX) SYR SC SCH (09:37)
--- NOTE | 2022-01-24 09:55 | Physical Therapy Daily Note ---
PT Daily Note-Current Subjective Pt. up in recliner, very reluctant to participate in PT Rx. Pt. finally agreed to do short gait bouts and w/c mob , pt. denies but c/o fatigue Pain Location: No Pain Reported Section J - Health Conditions 1. Rarely or not at all 2. Occasionally 3. Frequently 4. Almost constantly 8. Unable to answer Pain Effect on Sleep: 1 Pain Interference with Therapy: 1 Pain Interference w/Day-to-Day: 1 Mental Status Patient Orientation: Confused pt. cannot remember name of this facility, the month or the name of the [facility], reoriented pt to all the above Transfers SCALE: Activities may be completed with or without assistive devices. 3-Bxvlrnwpkf-bwllytn completes the activity by him/herself with no assistance from a helper. 5-Set-up or Clean-up Assistance-helper sets up or cleans up; patient completes activity. [place] assists only prior to or following the activity. 4-Supervision or Touching Assistance-helper provides verbal cues and/or touching/steadying and/or contact guard assistance as patient completes activity. Assistance may be provided throughout the activity or intermittently. 3-Partial/Moderate Assistance-helper does LESS THAN HALF the effort. [place] lifts, holds or supports trunk or limbs, but provides less than half the effort. 2-Substantial/Maximal Assistance-helper does MORE THAN HALF the effort. [place] lifts or holds trunk or limbs and provides more than half the effort. 7-Hiomriroz-rkeocz does ALL the effort. Patient does none of the effort to complete the activity. Or, the assistance of 2 or more helpers is required for the patient to complete the activity. If activity was not attempted, code reason: 7-Patient Refused. 9-Not Applicable-not attempted and the patient did not perform the activity before the current illness, exacerbation or injury. 10-Not Attempted due to Environmental Limitations-(lack of equipment, weather restraints, etc.). 88-Not Attempted due to Medical Conditions or Safety Concerns. Sit to Stand (QC): 4 Chair/Tte-vk-Nwimp Xfer(QC): 4 Weight Bearing Full Weight Bearing Full Weight Bearing Gait Training Does the Patient Walk?: Yes Walk 10 feet (QC): 4 Walk 50 ft with 2 Turns(QC): 4 Gait Persons Needed: 1 Gait Assistive Device: FWW very short step length, narrow [place], poor position in FWW, needs assist occas to hold FWW still and cue pt to walk up in it. Wheelchair Training Does the Pt Use a Wheelchair?: Yes Type of Wheelchair: Manual 15ftx3 mod assist, needs continual cues as to where to place hands and what to do. Exercises Seated Therapy Exercises: Ankle pumps, Sit to stand, Long arc quads, Hip flexion, Hip abd/add Seated Reps: 12 Treatments TRFs, gait, w/c mob, seated therx Assessment Current Status: Poor Progress no change in funct mob, confused, requires assist for all PT Short Term Goals Short Term Goals Time Frame: Jan 14, 2022 Roll Left & Right: 3 (Fawad) Sit to lyin (Fawad) Lying to sitting on side of be: 3 (Fawad) Sit to stand: 3 (Fawad) Chair/kbw-wd-fsmmv transfer: 4 (CGA) Walk 10 feet: 4 (CGA) PT Point Of Sale Associate Goals Point Of Sale Associate Goals PT Group Home Goals Time Frame: Jan 28, 2022 Roll Left & Right (QC): 4 (SBA) Sit to Lying (QC): 4 (SBA) Lying-Sitting on Side/Bed(QC): 4 (SBA) Sit to Stand (QC): 4 (CGA) Chair/Ylo-gq-Gimke Xfer(QC): 4 (SBA) Toilet Transfer (QC): 4 (SBA) Car Transfer (QC): 4 (CGA) Does the Patient Walk: Yes Walk 10 feet (QC): 4 (SBA) Walk 50ft with 2 Turns (QC): 4 (SBA) Walk 150 ft (QC): 4 (SBA) Walking 10ft on Uneven Surface: 4 (CGA) 1 Step (curb) (QC): 4 (CGA) 4 Steps (QC): 4 (CGA) 12 Steps (QC): 88 Picking up an Object (QC): 4 (CGA) Wheel 50 feet with 2 turns (QC: 9 Wheel 150 feet: 9 PT Plan Treatment/Plan Treatment Plan: Continue Plan of Care Treatment Plan: Bed Mobility, Education, Functional Activity Pat, Functional Strength, Group Therapy, Gait, Safety, Therapeutic Exercise, Transfers Treatment Duration: Jan 28, 2022 Frequency: At least 5 of 7 days/Wk (IRF) Estimated Hrs Per Day: 1.5 hours per day Patient and/or Family Agrees t: Yes Safety Risks/Education Patient Education: Gait Training, Transfer Techniques, Correct Positioning, W/C Management, Disease Process, Safety Issues Teaching Recipient: Patient Teaching Methods: Demonstration, Discussion Response to Teaching: Unable to Comprehend, Reinforcement Needed Time/GCodes Time In: 900 Time Out: 1000 Total Billed Treatment Time: 60 Total Billed Treatment 1,GT25m,WC20m,EX15m SCOTTIE MANCERA PROCESS HELPER Jan 24, 2022 09:55
--- NOTE | 2022-01-24 12:14 | Occupational Ther Daily Note ---
OT Current Status-Daily Note Subjective Pt sitting in recliner upon arrival. She reported being very tired and didn't want to leave her room. Appearance Pt left sitting in recliner with in room. All needs within reach. Mental Status/Objective Patient Orientation: Person, Confused Acute change in mental status: 0 Inattention: 2 Disorganized thinkin Altered level of consciousness: 0 ADL-Treatment Therapy Code Descriptions/Definitions Functional [place] Measure: 0=Not Assessed/NA 4=Minimal Assistance 1=Total Assistance 5=Supervision or Setup 2=Maximal Assistance 6=Modified [place] 3=Moderate Assistance 7=Complete IndependenceSCALE: Activities may be completed with or without assistive devices. 8-Xhpbnvxiql-ddjewzv completes the activity by him/herself with no assistance from a helper. 5-Set-up or Clean-up Assistance-helper sets up or cleans up; patient completes activity. [place] assists only prior to or following the activity. 4-Supervision or Touching Assistance-helper provides verbal cues and/or touching/steadying and/or contact guard assistance as patient completes activity. Assistance may be provided throughout the activity or intermittently. 3-Partial/Moderate Assistance-helper does LESS THAN HALF the effort. [place] lifts, holds or supports trunk or limbs, but provides less than half the effort. 2-Substantial/Maximal Assistance-helper does MORE THAN HALF the effort. [place] lifts or holds trunk or limbs and provides more than half the effort. 9-Myhvjxuym-quknwe does ALL the effort. Patient does none of the effort to complete the activity. Or, the assistance of 2 or more helpers is required for the patient to complete the activity. If activity was not attempted, code reason: 7-Patient Refused. 9-Not Applicable-not attempted and the patient did not perform the activity before the current illness, exacerbation or injury. 10-Not Attempted due to Environmental Limitations-(lack of equipment, weather restraints, etc.). 88-Not Attempted due to Medical Conditions or Safety Concerns. Other Treatment Pt participated in 2 cognition worksheets regarding menus, to improve and challenge the pt's problem-solving, cognition, memory, attention to task, writing, and executive functioning. She appeared aggitated with harder questions, required extra time to complete (20 min and 17 min) and needed cues for initiation, completion and answering them correctly. For each sheet she scored 7/10 correct. Pt needed cues for hand placement for w/c mobility through hallways and required multiple rest breaks every ~10 ft. Sit<>stand transfers x7: min assist- supervision. Pt participated in functional activities with 1 lb wrist weights while standing that improves problem-solving, attention to task, fine motor skills, strengthening, endurance, balance and coordination. Encouragement needed to participate and cues given for proper game adherence. Pt needed adequate rest breaks and tolerated 3-4 min of standing at a time. Education OT Patient Education: Correct positioning, Energy conservation, Progress toward Goal/Update tx plan, Purpose of tx/functional activities, Reviewed precautions, Rehab process, Safety issues, Transfer techniques Teaching Recipient: Patient Teaching Methods: Demonstration, Discussion Response to Teaching: Verbalize Understanding, Reinforcement Needed OT Short Term Goals Short Term Goals Time Frame: Jan 17, 2022 Eatin Oral hygiene: 5 Toileting hygiene: 3 Shower/bathe self: 3 Upper body dressin Lower body dressin Putting on/taking off footwear: 2 OT Detention Goals Detention Goals Time Frame: Jan 24, 2022 Acute change in mental status: 0 Inattention: 2 Disorganized thinkin Altered level of consciousness: 0 Eating (QC): 5 Oral Hygiene (QC): 5 Toileting Hygiene (QC): 4 Shower/Bathe Self (QC): 4 Upper Body Dressing (QC): 3 (set-up for shirt, min assist for bra) Lower Body Dressing (QC): 3 On/Off Footwear (QC): 2 Additional Goals: 1-Demonstrate ADL Tasks, 2-Verbalize Understanding, 3- ImproveStrength/Pat 1=Demonstrate adherence to instructed precautions during ADL tasks. 2=Patient will verbalize/demonstrate understanding of assistive devices/modifications for ADL. 3=Patient will improve strength/tolerance for activity to enable patient to perform ADL's. OT Education/Plan Problem List/Assessment Assessment: Decreased Activ Tolerance, Decreased Safety Aware, Decreased UE Strength, Impaired Cognition, Impaired Coordination, Impaired Funct Balance, Impaired I ADL's, Impaired Self-Care Skills Discharge Recommendations Plan/Recommendations: Continue POC Treatment Plan/Plan of Care Treatment,Training & Education: Yes Patient would benefit from OT for education, treatment and training to promote independence in ADL's, mobility, safety and/or upper extremity function for ADL's. Plan of Care: ADL Retraining, Caregiver Training, Cognitive Retraining, Functional Mobility, Group Exercise/Act as Ind, UE Funct Exercise/Act, UE Neuromus Re-Ed/Coord, W/C Management Training Treatment Duration: Jan 24, 2022 Frequency: At least 5 of 7 days/Wk (IRF) Estimated Hrs Per Day: 1.5 hours per day (60-75 minutes per day) Agreement: Yes Rehab Potential: Guarded Time/GCodes Start Time: 10:30 Stop Time: 12:00 Total Time Billed (hr/min): 90 Billed Treatment Time 1 visit FA x6 Dayna Crandall OT Jan 24, 2022 12:14
[2022-01-24 12:33] VITALS: BP 152/68
[2022-01-24] MEDS: HYDROcodone/APAP 5 MG/325 MG (LORTAB) TAB PO PRN (12:44)
--- NOTE | 2022-01-24 12:58 | Physical Therapy Daily Note ---
PT Daily Note-Current Subjective Pt. in bthrm on toilet, nursing present. Pt. c/o extreme abdominal pain, has had BM. Pt. asks to lay down Pain Numeric Pain Scale: 8 Location: Medial Location Body Site: Abdomen Pain Description: Pressure Section J - Health Conditions 1. Rarely or not at all 2. Occasionally 3. Frequently 4. Almost constantly 8. Unable to answer Pain Effect on Sleep: 1 Pain Interference with Therapy: 8 Pain Interference w/Day-to-Day: 8 Mental Status Patient Orientation: Confused Transfers SCALE: Activities may be completed with or without assistive devices. 3-Pnqcgiswkk-mxwhdno completes the activity by him/herself with no assistance from a helper. 5-Set-up or Clean-up Assistance-helper sets up or cleans up; patient completes activity. [place] assists only prior to or following the activity. 4-Supervision or Touching Assistance-helper provides verbal cues and/or touching/steadying and/or contact guard assistance as patient completes activity. Assistance may be provided throughout the activity or intermittently. 3-Partial/Moderate Assistance-helper does LESS THAN HALF the effort. [place] lifts, holds or supports trunk or limbs, but provides less than half the effort. 2-Substantial/Maximal Assistance-helper does MORE THAN HALF the effort. [place] lifts or holds trunk or limbs and provides more than half the effort. 2-Zzubbwuav-slkenu does ALL the effort. Patient does none of the effort to complete the activity. Or, the assistance of 2 or more helpers is required for the patient to complete the activity. If activity was not attempted, code reason: 7-Patient Refused. 9-Not Applicable-not attempted and the patient did not perform the activity before the current illness, exacerbation or injury. 10-Not Attempted due to Environmental Limitations-(lack of equipment, weather restraints, etc.). 88-Not Attempted due to Medical Conditions or Safety Concerns. Sit to Lying (QC): 2 Sit to Stand (QC): 3 Toilet Transfer (QC): 3 Weight Bearing Full Weight Bearing Full Weight Bearing Gait Training Does the Patient Walk?: Yes Gait Assistive Device: FWW 30 ft in room FWW min assist. bthrm to bed Exercises Supine Ex: Ankle pumps, Rolling, Heel Slides Supine Reps: 10 Treatments toileting, TRFs, gait Assessment Current Status: Poor Progress abdominal pain with pt moaning and whincing, nursing present to assess PT Short Term Goals Short Term Goals Time Frame: Jan 14, 2022 Roll Left & Right: 3 (Fawad) Sit to lyin (Fawad) Lying to sitting on side of be: 3 (Fawad) Sit to stand: 3 (Fawad) Chair/zmh-fi-jpzud transfer: 4 (CGA) Walk 10 feet: 4 (CGA) PT Outbound [employer] Representative Goals Residential Goals PT Residential Goals Time Frame: Jan 28, 2022 Roll Left & Right (QC): 4 (SBA) Sit to Lying (QC): 4 (SBA) Lying-Sitting on Side/Bed(QC): 4 (SBA) Sit to Stand (QC): 4 (CGA) Chair/Dlw-yh-Bjfmw Xfer(QC): 4 (SBA) Toilet Transfer (QC): 4 (SBA) Car Transfer (QC): 4 (CGA) Does the Patient Walk: Yes Walk 10 feet (QC): 4 (SBA) Walk 50ft with 2 Turns (QC): 4 (SBA) Walk 150 ft (QC): 4 (SBA) Walking 10ft on Uneven Surface: 4 (CGA) 1 Step (curb) (QC): 4 (CGA) 4 Steps (QC): 4 (CGA) 12 Steps (QC): 88 Picking up an Object (QC): 4 (CGA) Wheel 50 feet with 2 turns (QC: 9 Wheel 150 feet: 9 PT Plan Treatment/Plan Treatment Plan: Continue Plan of Care Treatment Plan: Bed Mobility, Education, Functional Activity Pat, Functional Strength, Group Therapy, Gait, Safety, Therapeutic Exercise, Transfers Treatment Duration: Jan 28, 2022 Frequency: At least 5 of 7 days/Wk (IRF) Estimated Hrs Per Day: 1.5 hours per day Patient and/or Family Agrees t: Yes Safety Risks/Education Patient Education: Gait Training, Transfer Techniques, Safety Issues Teaching Recipient: Patient Teaching Methods: Discussion Response to Teaching: Unable to Return Demonstration, Unable to Comprehend, Reinforcement Needed Time/GCodes Time In: 1230 Time Out: 1300 Total Billed Treatment Time: 30 Total Billed Treatment 1,FA30m SCOTTIE MANCERA BRICK CATCHER Jan 24, 2022 12:58
[2022-01-24 20:03] VITALS: BP 124/62
--- NOTE | 2022-01-25 06:28 | PM&R Progress Note ---
Subjective HPI/CC On Admission Date Seen by Provider: Jan 25, 2022 Time Seen by Provider: 11:30 Subjective/Events-last exam 01/25/2022: Patient cranky No issues really Monitoring closely 01/24/2022: No major events Participating with therapy Loose stools minimized with meds 01/23/2022: No major issues No abdominal pain declines chemotherapy for the patient Loose stools are still present but improved 01/22/2022: No major changes No pain Confusion is baseline SNF at [facility] then [facility]? 01/21/2022: Doing well Loose stools at times but overall Lomotil along with scheduled Imodium is working very well Confusion is on/off No pain reported 01/20/2022: Doing well Lomotil is helping her loose stools Blood sugars reviewed Blood pressures are high before meds 01/19/2022: No major issues Lomotil is improving the loose stools Pain controlled but comes and goes Eating well 01/18/2022: Patient having pain on and off Lomotil helping but she did have loose stool today so no severe constipation Check meds and labs 01/17/2022: Improved status Lomotil has been very helpful Monitor for constipation from Imodium and Lomotil 01/16/2022: Patient doing pretty well Discharge is planned to a skilled care facility We will attempt to add Lomotil twice a day as scheduled to help decrease stool frequency 01/15/2022: Pt is doing a little better Nausea, will be given Zofran Imodium will be given scheduled, that is helping loose stools from subtotal colectomy 01/14/2022: Pt is doing about the same Having loose stools, will respond to Imodium Podiatry consult Assisted living will likely be where she needs to go 01/13/2022: Pt is doing pretty well No other concerns Labs reviewed No other major issues 01/12/2022: Doing well Confusion at times Pain at times Imodium working well No other issues 01/11/2022: Doing well Improved cognition today Sleeps a lot DC Jessica since she refuses it Imodium scheduled QID is working well for her and it is safe 01/10/2022: Doing about the same Weakness noted by therapy Confusion is labile No falls 01/09/2022: Doing well Ultram started for the pain No falls Improved cognition 01/09/2022: Patient doing better Pain improved No falls Cognition is labile visits often Review of Systems General: Fatigue, Malaise Gastrointestinal: Diarrhea Neurological: Confusion Objective Exam Vital Signs Vital Signs Date Time Temp Pulse Resp B/P (MAP) Pulse Ox O2 Delivery O2 Flow Rate FiO2 01/25/22 09:09 Room Air 01/25/22 08:16 36.0 99 16 140/64 (89) 94 01/25/22 06:42 0.00 Capillary Refill : General Appearance: No Apparent Distress, Chronically ill, Obese HEENT: PERRL/EOMI, Normal ENT Inspection Neck: Normal Inspection, Non Tender, Supple Respiratory: Chest Non Tender, Lungs Clear, Normal Breath Sounds, No Accessory Muscle Use, No Respiratory Distress Cardiovascular: Regular Rate, Rhythm, No Edema, No Gallop, No JVD Gastrointestinal: Normal Bowel Sounds, No Organomegaly, No Pulsatile Mass, Non Tender, Soft Back: Normal Inspection, No CVA Tenderness, No Vertebral Tenderness Extremity: Normal Inspection, Non Tender Neurologic/Psychiatric: Alert, Oriented x3, supercalender operator helper II-XII Norm as Tested, Depressed Affect, Disoriented Skin: Normal Color, Warm/Dry Lymphatic: No Adenopathy Results/Procedures Lab Patient resulted labs reviewed. FIM Transfers Therapy Code Descriptions/Definitions Functional [place] Measure: 0=Not Assessed/NA 4=Minimal Assistance 1=Total Assistance 5=Supervision or Setup 2=Maximal Assistance 6=Modified [place] 3=Moderate Assistance 7=Complete IndependenceSCALE: Activities may be completed with or without assistive devices. 9-Elylzriclk-kjayjly completes the activity by him/herself with no assistance from a helper. 5-Set-up or Clean-up Assistance-helper sets up or cleans up; patient completes activity. [place] assists only prior to or following the activity. 4-Supervision or Touching Assistance-helper provides verbal cues and/or touching/steadying and/or contact guard assistance as patient completes activity. Assistance may be provided throughout the activity or intermittently. 3-Partial/Moderate Assistance-helper does LESS THAN HALF the effort. [place] lifts, holds or supports trunk or limbs, but provides less than half the effort. 2-Substantial/Maximal Assistance-helper does MORE THAN HALF the effort. [place] lifts or holds trunk or limbs and provides more than half the effort. 6-Pfhcnmeqo-wycuoo does ALL the effort. Patient does none of the effort to complete the activity. Or, the assistance of 2 or more helpers is required for the patient to complete the activity. If activity was not attempted, code reason: 7-Patient Refused. 9-Not Applicable-not attempted and the patient did not perform the activity bef ore the current illness, exacerbation or injury. 10-Not Attempted due to Environmental Limitations-(lack of equipment, weather r estraints, etc.). 88-Not Attempted due to Medical Conditions or Safety Concerns. Roll Left to Right (QC): 3 Sit to Lying (QC): 2 Sit to Stand (QC): 3 Chair/Rmo-ix-Pceqk Xfer(QC): 4 Car Transfer (QC): 88 Gait Training Does the Patient Walk?: Yes Distance: 30'x3, 20' Walk 10 feet (QC): 4 Walk 50 ft with 2 Turns(QC): 4 Walk 150 ft (QC): 88 Walking 10ft/uneven surface-QC: 88 Gait Persons Needed: 1 Gait Assistive Device: FWW Wheelchair Training Does the Pt Use a Wheelchair?: Yes Distance: 50'x2 Wheel 50 ft with 2 turns (QC): 3 Wheel 150 ft (QC): 88 Type of Wheelchair: Manual Stair Training 1 Step (curb) (QC): 88 4 Steps (QC): 88 12 Steps (QC): 88 Balance Picking up an Object (QC): 88 ADL-Treatment Eating (QC): 6 Oral Hygiene (QC): 6 Bathing Location: L Arm, R Arm, L Upper Leg, R Upper Leg, L Lower Leg (including foot), R Lower Leg (including foot), Chest, Abdomen, Buttocks, Perineal Area Shower/Bathe Self (QC): 3 Upper Body Dressing (QC): 5 Lower Body Dressing (QC): 5 On/Off Footwear (QC): 1 Toileting Hygiene (QC): 3 Toilet Transfer (QC): 4 Assessment/Plan Assessment and Plan Assess & Plan/Chief Complaint Assessment: S/p subtotal colectomy w/ileorectal anastamosis POD #38 Small bowel obstruction- Found on Xray (01-01-2022)- Resolved Hypokalemia Colon cancer T2DM HTN-OOC Dementia TBI at 22yo Plan: PT OT Monitor pain Monitor loose stools Monitor delirium 01/08/2022: Imodium Monitor cognitive changes 01/09/2022: Imodium Ultram 01/10/2022: Supportive care Expect labile confusion 01/10/2022: Restart DM med home dosing Monitor elevated BP 01/11/2022: DC Ascencionran Increase BP meds with Hydralazine 01/12/2022: Monitor closely 01/13/2022: Monitor BP and sugar 01/14/2022: Supportive care Pain control 01/15/2022: Supportive care [place] at [place] 01/16/2022: Add Lomotil to twice a day scheduled for constipation 01/17/2022: Monitor constipation from Lomotil trial 01/18/2022: Continue with Lomotil 01/19/2022: Lomotil Pain control 01/20/2022: Monitor blood pressure and blood sugar 01/21/2022: Monitor loose stools 01/22/2022: Monitor closely Lomotil and Imodium 01/23/2022: Monitor closely Fall risk 01/24/2022: Monitor closely 01/25/2022: DC Thursday (1) Generalized weakness Status: Acute (2) Colon cancer (3) GI bleed (4) Edema (5) Diabetes (6) Dementia Status: Acute JAMES BOWDEN DO Jan 25, 2022 06:28
[2022-01-25] MEDS: inSUlin ASPART (NovoLOG) 1 UNIT/0.01 ML (CHARGE PER UNIT) SC SCH ×4 (06:54→20:08)
[2022-01-25] MEDS: PANTOPRAZOLE 40 MG (PROTONIX) TAB PO SCH (06:54)
[2022-01-25 08:16] VITALS: BP 140/64
[2022-01-25] MEDS: MEMANTINE 10 MG (NAMENDA) TABLET PO SCH ×3 (08:57→20:08)
[2022-01-25] MEDS: hydrALAZINE (APRESOLINE) 25 MG TAB PO SCH ×4 (08:57→20:08)
[2022-01-25] MEDS: ENOXAPARIN 40 MG/0.4 ML (LOVENOX) SYR SC SCH ×3 (08:57→09:07)
[2022-01-25] MEDS: amLODIPine 5 MG (NORVASC) TAB PO SCH ×3 (08:57→20:08)
[2022-01-25] MEDS: polyethylene glycoL POWDER 17 GM (MIRALAX) PACK PO SCH ×2 (08:57→20:08)
[2022-01-25] MEDS: DIPHENOXYLATE/ATROPINE 2.5MG/0.025MG (LOMOTIL) TAB PO SCH ×3 (08:57→20:08)
[2022-01-25] MEDS: lisINopril 20 MG (PRINIVIL) TABLET PO SCH ×2 (08:57→09:07)
[2022-01-25] MEDS: LOPERAMIDE 2 MG (IMODIUM) TABLET PO SCH ×5 (08:57→20:08)
--- NOTE | 2022-01-25 11:29 | Physical Therapy Daily Note ---
PT Daily Note-Current Subjective Upon arrival, pt was seated in recliner, Pt states that she slept well and had no pain. then later states that she didn't sleep well. Pt agrees to PT. Pain Section J - Health Conditions 1. Rarely or not at all 2. Occasionally 3. Frequently 4. Almost constantly 8. Unable to answer Pain Effect on Sleep: 1 Pain Interference with Therapy: 8 Pain Interference w/Day-to-Day: 8 Mental Status Patient Orientation: Person, Confused Transfers SCALE: Activities may be completed with or without assistive devices. 4-Tvtzpwzdvk-ugcgbmp completes the activity by him/herself with no assistance from a helper. 5-Set-up or Clean-up Assistance-helper sets up or cleans up; patient completes activity. [place] assists only prior to or following the activity. 4-Supervision or Touching Assistance-helper provides verbal cues and/or touching/steadying and/or contact guard assistance as patient completes activity. Assistance may be provided throughout the activity or intermittently. 3-Partial/Moderate Assistance-helper does LESS THAN HALF the effort. [place] li fts, holds or supports trunk or limbs, but provides less than half the effort. 2-Substantial/Maximal Assistance-helper does MORE THAN HALF the effort. [place] lifts or holds trunk or limbs and provides more than half the effort. 0-Lbrbwxvra-sjjvsg does ALL the effort. Patient does none of the effort to complete the activity. Or, the assistance of 2 or more helpers is required for the patient to complete the activity. If activity was not attempted, code reason: 7-Patient Refused. 9-Not Applicable-not attempted and the patient did not perform the activity before the current illness, exacerbation or injury. 10-Not Attempted due to Environmental Limitations-(lack of equipment, weather restraints, etc.). 88-Not Attempted due to Medical Conditions or Safety Concerns. Weight Bearing Full Weight Bearing Full Weight Bearing Gait Training Does the Patient Walk?: No and Walking Goal IS indicated Exercises Supine Ex: Ankle pumps (15), Heel Slides (10) Seated Therapy Exercises: Ankle pumps (15), Long arc quads (10), Hip flexion (15), Hip abd/add (10) Treatments Pt completed all exs listed above. Pt reports fatigue near the end of session. Once PT was concluded pt was seated in recliner with call light and tray in reach and all needs met. Assessment Current Status: Good Progress Pt would benefit from continued PT to improve on strength and activity tolera nce. PT Short Term Goals Short Term Goals Time Frame: Jan 14, 2022 Roll Left & Right: 3 (Fawad) Sit to lyin (Fawad) Lying to sitting on side of be: 3 (Fawad) Sit to stand: 3 (Fawad) Chair/cyn-em-buyxj transfer: 4 (CGA) Walk 10 feet: 4 (CGA) PT Prison Goals Prison Goals PT Prison Goals Time Frame: Jan 28, 2022 Roll Left & Right (QC): 4 (SBA) Sit to Lying (QC): 4 (SBA) Lying-Sitting on Side/Bed(QC): 4 (SBA) Sit to Stand (QC): 4 (CGA) Chair/Wnj-bj-Nlqtb Xfer(QC): 4 (SBA) Toilet Transfer (QC): 4 (SBA) Car Transfer (QC): 4 (CGA) Does the Patient Walk: Yes Walk 10 feet (QC): 4 (SBA) Walk 50ft with 2 Turns (QC): 4 (SBA) Walk 150 ft (QC): 4 (SBA) Walking 10ft on Uneven Surface: 4 (CGA) 1 Step (curb) (QC): 4 (CGA) 4 Steps (QC): 4 (CGA) 12 Steps (QC): 88 Picking up an Object (QC): 4 (CGA) Wheel 50 feet with 2 turns (QC: 9 Wheel 150 feet: 9 PT Plan Problem List Problem List: Activity Tolerance, Functional Strength Treatment/Plan Treatment Plan: Continue Plan of Care Treatment Plan: Bed Mobility, Education, Functional Activity Pat, Functional Strength, Group Therapy, Gait, Safety, Therapeutic Exercise, Transfers Treatment Duration: Jan 28, 2022 Frequency: At least 5 of 7 days/Wk (IRF) Estimated Hrs Per Day: 1.5 hours per day Patient and/or Family Agrees t: Yes Time/GCodes Time In: 46 Time Out: 1004 Total Billed Treatment Time: 18 Total Billed Treatment 1, Ex ESTHER FLOYD [employer] MARKETING MANAGER Jan 25, 2022 11:29
[2022-01-25 19:00] VITALS: BP 160/84
[2022-01-26] MEDS: inSUlin ASPART (NovoLOG) 1 UNIT/0.01 ML (CHARGE PER UNIT) SC SCH ×4 (06:41→20:13)
[2022-01-26] MEDS: PANTOPRAZOLE 40 MG (PROTONIX) TAB PO SCH (06:41)
[2022-01-26 07:12] VITALS: BP 172/97
--- NOTE | 2022-01-26 08:01 | PM&R Progress Note ---
Subjective HPI/CC On Admission Date Seen by Provider: Jan 26, 2022 Time Seen by Provider: 10:00 Subjective/Events-last exam 01/26/2022: Doing the same No falls Improved mood today No pain 01/25/2022: Patient cranky No issues really Monitoring closely 01/24/2022: No major events Participating with therapy Loose stools minimized with meds 01/23/2022: No major issues No abdominal pain declines chemotherapy for the patient Loose stools are still present but improved 01/22/2022: No major changes No pain Confusion is baseline SNF at [facility] then [facility]? 01/21/2022: Doing well Loose stools at times but overall Lomotil along with scheduled Imodium is working very well Confusion is on/off No pain reported 01/20/2022: Doing well Lomotil is helping her loose stools Blood sugars reviewed Blood pressures are high before meds 01/19/2022: No major issues Lomotil is improving the loose stools Pain controlled but comes and goes Eating well 01/18/2022: Patient having pain on and off Lomotil helping but she did have loose stool today so no severe constipation Check meds and labs 01/17/2022: Improved status Lomotil has been very helpful Monitor for constipation from Imodium and Lomotil 01/16/2022: Patient doing pretty well Discharge is planned to a skilled care facility We will attempt to add Lomotil twice a day as scheduled to help decrease stool frequency 01/15/2022: Pt is doing a little better Nausea, will be given Zofran Imodium will be given scheduled, that is helping loose stools from subtotal colectomy 01/14/2022: Pt is doing about the same Having loose stools, will respond to Imodium Podiatry consult Assisted living will likely be where she needs to go 01/13/2022: Pt is doing pretty well No other concerns Labs reviewed No other major issues 01/12/2022: Doing well Confusion at times Pain at times Imodium working well No other issues 01/11/2022: Doing well Improved cognition today Sleeps a lot DC [facility]enc[facility] since she refuses it Imodium scheduled QID is working well for her and it is safe 01/10/2022: Doing about the same Weakness noted by therapy Confusion is labile No falls 01/09/2022: Doing well Ultram started for the pain No falls Improved cognition 01/09/2022: Patient doing better Pain improved No falls Cognition is labile visits often Review of Systems General: Fatigue, Malaise Objective Exam Vital Signs Vital Signs Date Time Temp Pulse Resp B/P (MAP) Pulse Ox O2 Delivery O2 Flow Rate FiO2 01/26/22 09:04 Room Air 01/26/22 07:12 36.1 102 20 172/97 (122) 95 01/25/22 06:42 0.00 Capillary Refill : General Appearance: No Apparent Distress, Chronically ill, Obese HEENT: PERRL/EOMI, Normal ENT Inspection Neck: Normal Inspection, Non Tender, Supple Respiratory: Chest Non Tender, Lungs Clear, Normal Breath Sounds, No Accessory Muscle Use, No Respiratory Distress Cardiovascular: Regular Rate, Rhythm, No Edema, No Gallop, No JVD Gastrointestinal: Normal Bowel Sounds, No Organomegaly, No Pulsatile Mass, Non Tender, Soft Back: Normal Inspection, No CVA Tenderness, No Vertebral Tenderness Extremity: Normal Inspection, Non Tender Neurologic/Psychiatric: Alert, Oriented x3, 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 FIM Transfers Therapy Code Descriptions/Definitions Functional [place] Measure: 0=Not Assessed/NA 4=Minimal Assistance 1=Total Assistance 5=Supervision or Setup 2=Maximal Assistance 6=Modified [place] 3=Moderate Assistance 7=Complete IndependenceSCALE: Activities may be completed with or without assistive devices. 7-Cdmqphnoic-kuicaze completes the activity by him/herself with no assistance from a helper. 5-Set-up or Clean-up Assistance-helper sets up or cleans up; patient completes activity. [place] assists only prior to or following the activity. 4-Supervision or Touching Assistance-helper provides verbal cues and/or touching/steadying and/or contact guard assistance as patient completes activity. Assistance may be provided throughout the activity or intermittently. 3-Partial/Moderate Assistance-helper does LESS THAN HALF the effort. [place] lifts, holds or supports trunk or limbs, but provides less than half the effort. 2-Substantial/Maximal Assistance-helper does MORE THAN HALF the effort. [place] lifts or holds trunk or limbs and provides more than half the effort. 5-Jmeluqkpv-kvplrs does ALL the effort. Patient does none of the effort to complete the activity. Or, the assistance of 2 or more helpers is required for the patient to complete the activity. If activity was not attempted, code reason: 7-Patient Refused. 9-Not Applicable-not attempted and the patient did not perform the activity before the current illness, exacerbation or injury. 10-Not Attempted due to Environmental Limitations-(lack of equipment, weather restraints, etc.). 88-Not Attempted due to Medical Conditions or Safety Concerns. Roll Left to Right (QC): 3 Sit to Lying (QC): 2 Sit to Stand (QC): 3 Chair/Adb-df-Hedpo Xfer(QC): 4 Car Transfer (QC): 88 Gait Training Does the Patient Walk?: No and Walking Goal IS indicated Distance: 30'x3, 20' Walk 10 feet (QC): 4 Walk 50 ft with 2 Turns(QC): 4 Walk 150 ft (QC): 88 Walking 10ft/uneven surface-QC: 88 Gait Persons Needed: 1 Gait Assistive Device: FWW Wheelchair Training Does the Pt Use a Wheelchair?: Yes Distance: 50'x2 Wheel 50 ft with 2 turns (QC): 3 Wheel 150 ft (QC): 88 Type of Wheelchair: Manual Stair Training 1 Step (curb) (QC): 88 4 Steps (QC): 88 12 Steps (QC): 88 Balance Picking up an Object (QC): 88 ADL-Treatment Eating (QC): 6 Oral Hygiene (QC): 6 Bathing Location: L Arm, R Arm, L Upper Leg, R Upper Leg, L Lower Leg (including foot), R Lower Leg (including foot), Chest, Abdomen, Buttocks, Perineal Area Shower/Bathe Self (QC): 3 Upper Body Dressing (QC): 5 Lower Body Dressing (QC): 5 On/Off Footwear (QC): 1 Toileting Hygiene (QC): 3 Toilet Transfer (QC): 4 Assessment/Plan Assessment and Plan Assess & Plan/Chief Complaint Assessment: S/p subtotal colectomy w/ileorectal anastamosis POD #40 Small bowel obstruction- Found on Xray (01-01-2022)- Resolved Hypokalemia Colon cancer T2DM HTN-OOC Dementia TBI at 22yo Plan: PT OT Monitor pain Monitor loose stools Monitor delirium 01/08/2022: Imodium Monitor cognitive changes 01/09/2022: Imodium Ultram 01/10/2022: Supportive care Expect labile confusion 01/10/2022: Restart DM med home dosing Monitor elevated BP 01/11/2022: DC Questran Increase BP meds with Hydralazine 01/12/2022: Monitor closely 01/13/2022: Monitor BP and sugar 01/14/2022: Supportive care Pain control 01/15/2022: Supportive care [place] at [facility] 01/16/2022: Add Lomotil to twice a day scheduled for constipation 01/17/2022: Monitor constipation from Lomotil trial 01/18/2022: Continue with Lomotil 01/19/2022: Lomotil Pain control 01/20/2022: Monitor blood pressure and blood sugar 01/21/2022: Monitor loose stools 01/22/2022: Monitor closely Lomotil and Imodium 01/23/2022: Monitor closely Fall risk 01/24/2022: Monitor closely 01/25/2022: DC Thursday01/26/2022: Monitor closely (1) Generalized weakness Status: Acute (2) Colon cancer (3) GI bleed (4) Edema (5) Diabetes (6) Dementia Status: Acute JAMES BOWDEN DO Jan 26, 2022 08:01
[2022-01-26] MEDS: MEMANTINE 10 MG (NAMENDA) TABLET PO SCH ×2 (08:20→20:13)
[2022-01-26] MEDS: lisINopril 20 MG (PRINIVIL) TABLET PO SCH (08:20)
[2022-01-26] MEDS: ENOXAPARIN 40 MG/0.4 ML (LOVENOX) SYR SC SCH (08:20)
[2022-01-26] MEDS: hydrALAZINE (APRESOLINE) 25 MG TAB PO SCH ×3 (08:20→20:13)
[2022-01-26] MEDS: DIPHENOXYLATE/ATROPINE 2.5MG/0.025MG (LOMOTIL) TAB PO SCH ×2 (08:20→20:13)
[2022-01-26] MEDS: polyethylene glycoL POWDER 17 GM (MIRALAX) PACK PO SCH ×2 (08:20→20:13)
[2022-01-26] MEDS: LOPERAMIDE 2 MG (IMODIUM) TABLET PO SCH ×4 (08:20→20:13)
[2022-01-26] MEDS: amLODIPine 5 MG (NORVASC) TAB PO SCH ×2 (08:20→20:13)
[2022-01-26 09:05] LABS: BASOPHILS % (AUTO) 1 % (0-10); EOSINOPHILS # (AUTO) 0.2 10^3/uL (0.0-0.3); EOSINOPHILS % (AUTO) 5 % (0-10); HEMATOCRIT 30 % (35-52); HEMOGLOBIN 8.9 g/dL (11.5-16.0); LYMPHOCYTES # (AUTO) 0.8 10^3/uL (1.0-4.0); LYMPHOCYTES % (AUTO) 23 % (12-44); MEAN CORPUSCULAR HEMOGLOBIN 24 pg (25-34); MEAN CORPUSCULAR HGB CONC 30 g/dL (32-36); MEAN CORPUSCULAR VOLUME 82 fL (80-99); MEAN PLATELET VOLUME 9.3 fL (9.0-12.2); MONOCYTES # (AUTO) 0.3 10^3/uL (0.0-1.0); MONOCYTES % (AUTO) 7 % (0-12); NEUTROPHILS # (AUTO) 2.3 10^3/uL (1.8-7.8); NEUTROPHILS % (AUTO) 64 % (42-75); PLATELET COUNT 245 10^3/uL (130-400); WHITE BLOOD COUNT 3.6 10^3/uL (4.3-11.0)
[2022-01-26 09:25] LABS: ALBUMIN 2.8 GM/DL (3.2-4.5); BILIRUBIN,TOTAL 0.2 MG/DL (0.1-1.0); CALCIUM 8.3 MG/DL (8.5-10.1); CREATININE SERUM 0.7 MG/DL (0.60-1.30); POTASSIUM 3.8 MMOL/L (3.6-5.0); TOTAL PROTEIN 5.5 GM/DL (6.4-8.2)
[2022-01-26 19:29] VITALS: BP 150/70
--- NOTE | 2022-01-27 05:25 | PM&R Progress Note ---
Subjective HPI/CC On Admission Date Seen by Provider: Jan 27, 2022 Time Seen by Provider: 08:30 Subjective/Events-last exam 01/27/2022: Patient doing well Ready for discharge to half-way tomorrow on my service No major other issues 01/26/2022: Doing the same No falls Improved mood today No pain 01/25/2022: Patient cranky No issues really Monitoring closely 01/24/2022: No major events Participating with therapy Loose stools minimized with meds 01/23/2022: No major issues No abdominal pain declines chemotherapy for the patient Loose stools are still present but improved 01/22/2022: No major changes No pain Confusion is baseline SNF at DC then AL? 01/21/2022: Doing well Loose stools at times but overall Lomotil along with scheduled Imodium is working very well Confusion is on/off No pain reported 01/20/2022: Doing well Lomotil is helping her loose stools Blood sugars reviewed Blood pressures are high before meds 01/19/2022: No major issues Lomotil is improving the loose stools Pain controlled but comes and goes Eating well 01/18/2022: Patient having pain on and off Lomotil helping but she did have loose stool today so no severe constipation Check meds and labs 01/17/2022: Improved status Lomotil has been very helpful Monitor for constipation from Imodium and Lomotil 01/16/2022: Patient doing pretty well Discharge is planned to a skilled care facility We will attempt to add Lomotil twice a day as scheduled to help decrease stool frequency 01/15/2022: Pt is doing a little better Nausea, will be given Zofran Imodium will be given scheduled, that is helping loose stools from subtotal colectomy 01/14/2022: Pt is doing about the same Having loose stools, will respond to Imodium Podiatry consult Assisted living will likely be where she needs to go 01/13/2022: Pt is doing pretty well No other concerns Labs reviewed No other major issues 01/12/2022: Doing well Confusion at times Pain at times Imodium working well No other issues 01/11/2022: Doing well Improved cognition today Sleeps a lot DC Jessica since she refuses it Imodium scheduled QID is working well for her and it is safe 01/10/2022: Doing about the same Weakness noted by therapy Confusion is labile No falls 01/09/2022: Doing well Ultram started for the pain No falls Improved cognition 01/09/2022: Patient doing better Pain improved No falls Cognition is labile visits often Review of Systems General: Fatigue, Malaise Gastrointestinal: Diarrhea Neurological: Confusion Objective Exam Vital Signs Vital Signs Date Time Temp Pulse Resp B/P (MAP) Pulse Ox O2 Delivery O2 Flow Rate FiO2 01/27/22 20:48 Room Air 01/27/22 20:31 36.5 97 24 125/64 (84) 96 01/25/22 06:42 0.00 Capillary Refill : General Appearance: No Apparent Distress, Chronically ill, Obese HEENT: PERRL/EOMI, Normal ENT Inspection Neck: Normal Inspection, Non Tender, Supple Respiratory: Chest Non Tender, Lungs Clear, Normal Breath Sounds, No Accessory Muscle Use, No Respiratory Distress Cardiovascular: Regular Rate, Rhythm, No Edema, No Gallop, No JVD Gastrointestinal: Normal Bowel Sounds, No Organomegaly, No Pulsatile Mass, Non Tender, Soft Back: Normal Inspection, No CVA Tenderness, No Vertebral Tenderness Extremity: Normal Inspection, Non Tender Neurologic/Psychiatric: Alert, Oriented x3, program strategist II-XII Norm as Tested, Depressed Affect, Disoriented Skin: Normal Color, Warm/Dry Lymphatic: No Adenopathy Results/Procedures Lab Patient resulted labs reviewed. FIM Transfers Therapy Code Descriptions/Definitions Functional [place] Measure: 0=Not Assessed/NA 4=Minimal Assistance 1=Total Assistance 5=Supervision or Setup 2=Maximal Assistance 6=Modified [place] 3=Moderate Assistance 7=Complete IndependenceSCALE: Activities may be completed with or without assistive devices. 2-Bvzbmsdmhi-qgjrxer completes the activity by him/herself with no assistance from a helper. 5-Set-up or Clean-up Assistance-helper sets up or cleans up; patient completes activity. [place] assists only prior to or following the activity. 4-Supervision or Touching Assistance-helper provides verbal cues and/or touching/steadying and/or contact guard assistance as patient completes activity. Assistance may be provided throughout the activity or intermittently. 3-Partial/Moderate Assistance-helper does LESS THAN HALF the effort. [place] lifts, holds or supports trunk or limbs, but provides less than half the effort. 2-Substantial/Maximal Assistance-helper does MORE THAN HALF the effort. [place] lifts or holds trunk or limbs and provides more than half the effort. 2-Egocxeotf-cetlyz does ALL the effort. Patient does none of the effort to complete the activity. Or, the assistance of 2 or more helpers is required for the patient to complete the activity. If activity was not attempted, code reason: 7-Patient Refused. 9-Not Applicable-not attempted and the patient did not perform the activity before the current illness, exacerbation or injury. 10-Not Attempted due to Environmental Limitations-(lack of equipment, weather restraints, etc.). 88-Not Attempted due to Medical Conditions or Safety Concerns. Roll Left to Right (QC): 3 Sit to Lying (QC): 2 Sit to Stand (QC): 3 Chair/Uuo-hp-Cpanj Xfer(QC): 4 Car Transfer (QC): 88 Gait Training Does the Patient Walk?: No and Walking Goal IS indicated Distance: 30'x3, 20' Walk 10 feet (QC): 4 Walk 50 ft with 2 Turns(QC): 4 Walk 150 ft (QC): 88 Walking 10ft/uneven surface-QC: 88 Gait Persons Needed: 1 Gait Assistive Device: FWW Wheelchair Training Does the Pt Use a Wheelchair?: Yes Distance: 50'x2 Wheel 50 ft with 2 turns (QC): 3 Wheel 150 ft (QC): 88 Type of Wheelchair: Manual Stair Training 1 Step (curb) (QC): 88 4 Steps (QC): 88 12 Steps (QC): 88 Balance Picking up an Object (QC): 88 ADL-Treatment Eating (QC): 6 Oral Hygiene (QC): 6 Bathing Location: L Arm, R Arm, L Upper Leg, R Upper Leg, L Lower Leg (including foot), R Lower Leg (including foot), Chest, Abdomen, Buttocks, Perineal Area Shower/Bathe Self (QC): 3 Upper Body Dressing (QC): 5 Lower Body Dressing (QC): 5 On/Off Footwear (QC): 1 Toileting Hygiene (QC): 3 Toilet Transfer (QC): 4 Assessment/Plan Assessment and Plan Assess & Plan/Chief Complaint Assessment: S/p subtotal colectomy w/ileorectal anastamosis POD #42 Small bowel obstruction- Found on Xray (01-01-2022)- Resolved Hypokalemia Colon cancer T2DM HTN-OOC Dementia TBI at 22yo Plan: PT OT Monitor pain Monitor loose stools Monitor delirium 01/08/2022: Imodium Monitor cognitive changes 01/09/2022: Imodium Ultram 01/10/2022: Supportive care Expect labile confusion 01/10/2022: Restart DM med home dosing Monitor elevated BP 01/11/2022: DC Questran Increase BP meds with Hydralazine 01/12/2022: Monitor closely 01/13/2022: Monitor BP and sugar 01/14/2022: Supportive care Pain control 01/15/2022: Supportive care AL at DC 01/16/2022: Add Lomotil to twice a day scheduled for constipation 01/17/2022: Monitor constipation from Lomotil trial 01/18/2022: Continue with Lomotil 01/19/2022: Lomotil Pain control 01/20/2022: Monitor blood pressure and blood sugar 01/21/2022: Monitor loose stools 01/22/2022: Monitor closely Lomotil and Imodium 01/23/2022: Monitor closely Fall risk 01/24/2022: Monitor closely 01/25/2022: DC Thursday01/26/2022: Monitor closely 01/27/2022: Discharge to half-way tomorrow (1) Generalized weakness Status: Acute (2) Colon cancer (3) GI bleed (4) Edema (5) Diabetes (6) Dementia Status: Acute JAMES BOWDEN DO Jan 27, 2022 05:25
[2022-01-27] MEDS: inSUlin ASPART (NovoLOG) 1 UNIT/0.01 ML (CHARGE PER UNIT) SC SCH ×4 (05:32→20:38)
[2022-01-27] MEDS: PANTOPRAZOLE 40 MG (PROTONIX) TAB PO SCH (06:47)
[2022-01-27] MEDS: LOPERAMIDE 2 MG (IMODIUM) TABLET PO SCH ×4 (07:20→20:34)
[2022-01-27] MEDS: hydrALAZINE (APRESOLINE) 25 MG TAB PO SCH ×3 (07:20→20:34)
[2022-01-27] MEDS: amLODIPine 5 MG (NORVASC) TAB PO SCH ×2 (07:20→20:34)
[2022-01-27] MEDS: lisINopril 20 MG (PRINIVIL) TABLET PO SCH (07:20)
[2022-01-27] MEDS: MEMANTINE 10 MG (NAMENDA) TABLET PO SCH ×2 (07:20→20:34)
[2022-01-27] MEDS: DIPHENOXYLATE/ATROPINE 2.5MG/0.025MG (LOMOTIL) TAB PO SCH ×2 (07:20→20:34)
[2022-01-27 07:37] VITALS: BP 163/71
--- NOTE | 2022-01-27 09:09 | Occupational Ther Daily Note ---
OT Current Status-Daily Note Subjective Pt sitting in recliner upon arrival. She agrees to a shower. Appearance Pt left sitting in recliner with Dr. Acosta in room. All needs within reach. Mental Status/Objective Patient Orientation: Person, Confused Acute change in mental status: 0 Inattention: 2 Disorganized thinkin Altered level of consciousness: 0 ADL-Treatment Therapy Code Descriptions/Definitions Functional [place] Measure: 0=Not Assessed/NA 4=Minimal Assistance 1=Total Assistance 5=Supervision or Setup 2=Maximal Assistance 6=Modified [place] 3=Moderate Assistance 7=Complete IndependenceSCALE: Activities may be completed with or without assistive devices. 9-Dubfugysru-xkfifbb completes the activity by him/herself with no assistance from a helper. 5-Set-up or Clean-up Assistance-helper sets up or cleans up; patient completes activity. [place] assists only prior to or following the activity. 4-Supervision or Touching Assistance-helper provides verbal cues and/or touching/steadying and/or contact guard assistance as patient completes activity. Assistance may be provided throughout the activity or intermittently. 3-Partial/Moderate Assistance-helper does LESS THAN HALF the effort. [place] lifts, holds or supports trunk or limbs, but provides less than half the effort. 2-Substantial/Maximal Assistance-helper does MORE THAN HALF the effort. [place] lifts or holds trunk or limbs and provides more than half the effort. 7-Nykxvexxy-vyckkf does ALL the effort. Patient does none of the effort to complete the activity. Or, the assistance of 2 or more helpers is required for the patient to complete the activity. If activity was not attempted, code reason: 7-Patient Refused. 9-Not Applicable-not attempted and the patient did not perform the activity before the current illness, exacerbation or injury. 10-Not Attempted due to Environmental Limitations-(lack of equipment, weather restraints, etc.). 88-Not Attempted due to Medical Conditions or Safety Concerns. Eating (QC): 5 Oral Hygiene (QC): 4 Shower/Bathe Self (QC): 4 Upper Body Dressing (QC): 3 (min assist with bra) Lower Body Dressing (QC): 3 (mod assist; able to thread one leg) On/Off Footwear: 1 Toileting Hygiene (QC): 4 Toilet Transfer (QC): 4 Sit<>stand transfer: SBA. All clothing doffed with independence. Pt completed shower 80% in seated; standing to wash facundo-area. Cues for sequencing and safety during shower were given. Pt needed assist to clasp bra. She is able to thread one leg through brief and pants, but needs assistance with other leg. Pt refuses AE. Grooming completed seated at sink with initiation cues given. Other Treatment Pt needs cues for initiation and technique for w/c mobility. Pt completed functional activities in standing to work on endurance, strengthening, coordination, fine-motor skills, problem-solving, near-point copying, and balance. Pt able to tolerate 5 min of standing at a time. Pt became frustrated with task when she deemed it too hard. Education OT Patient Education: Correct positioning, Energy conservation, Modified ADL techniques, Progress toward Goal/Update tx plan, Purpose of tx/functional activities, Reviewed precautions, Rehab process, Safety issues, Transfer techniques, W/C management Teaching Recipient: Patient Teaching Methods: Demonstration, Discussion Response to Teaching: Verbalize Understanding, Return Demonstration, Reinforcement Needed OT Short Term Goals Short Term Goals Time Frame: Jan 17, 2022 Eatin Oral hygiene: 5 Toileting hygiene: 3 Shower/bathe self: 3 Upper body dressin Lower body dressin Putting on/taking off footwear: 2 OT Halfway Goals Psychologist Military Personnel Goals Time Frame: Jan 24, 2022 Acute change in mental status: 0 Inattention: 2 Disorganized thinkin Altered level of consciousness: 0 Eating (QC): 5 Oral Hygiene (QC): 5 Toileting Hygiene (QC): 4 Shower/Bathe Self (QC): 4 Upper Body Dressing (QC): 3 (set-up for shirt, min assist for bra) Lower Body Dressing (QC): 3 On/Off Footwear (QC): 2 Additional Goals: 1-Demonstrate ADL Tasks, 2-Verbalize Understanding, 3- ImproveStrength/Pat 1=Demonstrate adherence to instructed precautions during ADL tasks. 2=Patient will verbalize/demonstrate understanding of assistive devices/modifications for ADL. 3=Patient will improve strength/tolerance for activity to enable patient to perform ADL's. OT Education/Plan Problem List/Assessment Assessment: Decreased Activ Tolerance, Decreased Safety Aware, Decreased UE Strength, Edema, Impaired Cognition, Impaired Coordination, Impaired Funct Balance, Impaired I ADL's, Impaired Self-Care Skills Discharge Recommendations Plan/Recommendations: Continue POC Therapy Discharge Recommendati: Assisted Living Treatment Plan/Plan of Care Treatment,Training & Education: Yes Patient would benefit from OT for education, treatment and training to promote independence in ADL's, mobility, safety and/or upper extremity function for ADL's. Plan of Care: ADL Retraining, Caregiver Training, Cognitive Retraining, Functional Mobility, Group Exercise/Act as Ind, UE Funct Exercise/Act, UE Neuromus Re-Ed/Coord, W/C Management Training Treatment Duration: Jan 24, 2022 Frequency: At least 5 of 7 days/Wk (IRF) Estimated Hrs Per Day: 1.5 hours per day (60-75 minutes per day) Agreement: Yes Rehab Potential: Guarded Time/GCodes Start Time: 07:40 Stop Time: 09:10 Total Time Billed (hr/min): 90 Billed Treatment Time 1 visit ADL x4 (55 min) FA x2 (35 min) Dayna Crandall OT Jan 27, 2022 09:09
[2022-01-27] MEDS: ENOXAPARIN 40 MG/0.4 ML (LOVENOX) SYR SC SCH (09:42)
[2022-01-27] MEDS: polyethylene glycoL POWDER 17 GM (MIRALAX) PACK PO SCH ×2 (09:48→20:34)
--- NOTE | 2022-01-27 10:29 | Physical Therapy Daily Note ---
PT Daily Note-Current Subjective Pt just returning from BR w/INPATIENT AUDITOR upon arrival. Pt reports very fatigued since just finished w/OT and reluctantly agrees to PT for QC scoring for anticipated d/c tomorrow. Pain Location Body Site: Abdomen Pain Description: Ache Comment: Pt reports beely pain from shot but also B LE pain/weakness w/movement Section J - Health Conditions 1. Rarely or not at all 2. Occasionally 3. Frequently 4. Almost constantly 8. Unable to answer Pain Effect on Sleep: 1 Pain Interference with Therapy: 4 Pain Interference w/Day-to-Day: 4 Mental Status Patient Orientation: Person, Confused, Place Transfers SCALE: Activities may be completed with or without assistive devices. 0-Wezduntatg-agbqudj completes the activity by him/herself with no assistance from a helper. 5-Set-up or Clean-up Assistance-helper sets up or cleans up; patient completes activity. [place] assists only prior to or following the activity. 4-Supervision or Touching Assistance-helper provides verbal cues and/or jessenia reza/steadying and/or contact guard assistance as patient completes activity. Assistance may be provided throughout the activity or intermittently. 3-Partial/Moderate Assistance-helper does LESS THAN HALF the effort. [place] lifts, holds or supports trunk or limbs, but provides less than half the effort. 2-Substantial/Maximal Assistance-helper does MORE THAN HALF the effort. [place] lifts or holds trunk or limbs and provides more than half the effort. 5-Feqgnjkme-cxcwoz does ALL the effort. Patient does none of the effort to complete the activity. Or, the assistance of 2 or more helpers is required for the patient to complete the activity. If activity was not attempted, code reason: 7-Patient Refused. 9-Not Applicable-not attempted and the patient did not perform the activity before the current illness, exacerbation or injury. 10-Not Attempted due to Environmental Limitations-(lack of equipment, weather restraints, etc.). 88-Not Attempted due to Medical Conditions or Safety Concerns. Roll Left & Right (QC): 3 Sit to Lying (QC): 3 Lying to Sitting/Side of Bed(Q: 3 Sit to Stand (QC): 3 Chair/Kyn-dw-Hhvjp Xfer(QC): 3 Toilet Transfer (QC): 3 Car Transfer (QC): 2 Weight Bearing Full Weight Bearing Full Weight Bearing Gait Training Does the Patient Walk?: Yes Distance: 50' Walk 10 feet (QC): 3 Walk 50 ft with 2 Turns(QC): 3 Walk 150 ft (QC): 88 Walking 10ft/uneven surface-QC: 88 Gait Persons Needed: 1 Gait Assistive Device: FWW Pt shuffles feet even when given VC for picking up feet to take steps. Pt states she is unable to due to heaviness of B LE. Wheelchair Training Does the Pt Use a Wheelchair?: Yes Wheel 50 ft with 2 turns (QC): 3 Wheel 150 ft (QC): 2 Type of Wheelchair: Manual Stair Training #of Steps: 0 1 Step (curb) (QC): 88 4 Steps (QC): 88 12 Steps (QC): 88 Balance Picking up an Object (QC): 88 Treatments 930-1030: Pt completes QC scoring items listed above that pt can complete. Pt is unable to complete several of them due to safety concerns or medical diagnosis. Pt has to return to room and has a couple rounds of loose BM. Nursing aware. Pt returns to bed to rest before sitting up for lunch. All needs met,call light in hand. [id number]: CLASSIFIER TENDER assists pt with TF from recliner and pt requests using BR during session. Pt reports fatigue and asks to return to bed to rest at end of session. All needs met, call light in hand. Assessment Current Status: Poor Progress Pain, weakness and incontinence limit tx. Pt fatigues easily, safety concerns observed, VC can sometimes be followed. PT Short Term Goals Short Term Goals Time Frame: Jan 14, 2022 Roll Left & Right: 3 ([place]) Sit to lyin ([place]) Lying to sitting on side of be: 3 ([place]awad) Sit to stand: 3 ([place]) Chair/gby-tg-pjdbt transfer: 4 (CGA) Walk 10 feet: 4 (CGA) PT Podiatric Medicine Doctor Goals Intermediate Goals PT Podiatric Medicine Doctor Goals Time Frame: Jan 28, 2022 Roll Left & Right (QC): 4 (SBA) Sit to Lying (QC): 4 (SBA) Lying-Sitting on Side/Bed(QC): 4 (SBA) Sit to Stand (QC): 4 (CGA) Chair/Khz-ya-Jrllz Xfer(QC): 4 (SBA) Toilet Transfer (QC): 4 (SBA) Car Transfer (QC): 4 (CGA) Does the Patient Walk: Yes Walk 10 feet (QC): 4 (SBA) Walk 50ft with 2 Turns (QC): 4 (SBA) Walk 150 ft (QC): 4 (SBA) Walking 10ft on Uneven Surface: 4 (CGA) 1 Step (curb) (QC): 4 (CGA) 4 Steps (QC): 4 (CGA) 12 Steps (QC): 88 Picking up an Object (QC): 4 (CGA) Wheel 50 feet with 2 turns (QC: 9 Wheel 150 feet: 9 PT Plan Problem List Problem List: Activity Tolerance, Functional Strength, Safety, Gait, Transfer Treatment/Plan Treatment Plan: Continue Plan of Care Treatment Plan: Bed Mobility, Education, Functional Activity Pat, Functional Strength, Group Therapy, Gait, Safety, Therapeutic Exercise, Transfers Treatment Duration: Jan 28, 2022 Frequency: At least 5 of 7 days/Wk (IRF) Estimated Hrs Per Day: 1.5 hours per day Patient and/or Family Agrees t: Yes Safety Risks/Education Patient Education: Gait Training, Transfer Techniques, Correct Positioning, Safety Issues Teaching Recipient: Patient Teaching Methods: Demonstration, Discussion Response to Teaching: Unable to Return Demonstration, Reinforcement Needed Time/GCodes Time In: 930 Time Out: 1030 Total Billed Treatment Time: 60 Total Billed Treatment 930-1030: 1, GT (20m), WCH (15m) & FA x2 (25m) [id number]: 1, FA x2 (30m) OFELIA ALEXANDER PTA Jan 27, 2022 10:29
[2022-01-27] MEDS: LOPERAMIDE 2 MG (IMODIUM) TABLET PO PRN (10:48)
[2022-01-27] MEDS: HYDROcodone/APAP 5 MG/325 MG (LORTAB) TAB PO PRN (10:48)
--- NOTE | 2022-01-27 12:13 | Progress Note - Surgery ---
JOSE ORONAON 01/27/22 1213: Subjective Date Seen by a Provider: Jan 27, 2022 Time Seen by a Provider: 12:00 Subjective/Events-last exam 81 F s/p subtotal colectomy w/ileorectal anastamosis with new onset abdominal pain upon BM. Nurse reports 3 BM overnight and 4 this morning 01/26/22. BM described per nurse, as brown loose and moderately foul smelling. Pt reports no N/V, abd pain upon rest, CP, or shortness of breath. Review of Systems General: No Chills, No Fatigue; Appetite Pulmonary: No Dyspnea, No Cough Cardiovascular: No: Chest Pain Gastrointestinal: Abdominal Pain (upon BM), Diarrhea; No: Nausea, Vomiting, Melena Objective Exam Vital Signs Date Time Temp Pulse Resp B/P (MAP) Pulse Ox O2 Delivery O2 Flow Rate FiO2 01/27/22 07:37 36.5 100 18 163/71 (101) 92 Room Air 01/26/22 20:05 Room Air 01/26/22 19:29 36.0 94 22 150/70 (96) 96 Room Air Capillary Refill : General Appearance: No Apparent Distress, Chronically ill, Obese Respiratory: Chest Non Tender, Lungs Clear, Normal Breath Sounds, No Accessory Muscle Use, No Respiratory Distress; No Crackles, No Rales Cardiovascular: Regular Rate, Rhythm, No Edema, No Gallop Peripheral Pulses: 3+ Radial Pulses (R), 3+ Radial Pulses (L) Gastrointestinal: non tender (upon palpation), soft, no organomegaly, no pulsatile mass, abnormal bowel sounds (hyperactive) Extremity: Normal Inspection, Non Tender Neurologic/Psychiatric: Alert, Normal Mood/Affect Skin: Normal Color, Warm/Dry Results Lab Laboratory Tests 01/26/22 15:29: Glucometer 171H 01/26/22 20:08: Glucometer 237H 01/27/22 05:27: Glucometer 165H 01/27/22 10:48: Glucometer 247H Assessment/Plan Assessment/Plan Assessment/Plan S/p subtotal colectomy w/ileorectal anastamosis New onset Abdominal pain with BM Diarrhea Colon cancer Postop urinary retention Obesity Stool study to assess for infection continue anti-diarrheal medication Continue pain control. Continue antiemetics Pt is tolerating diet and continues to be hungry. BRYANNA CAMPOS DO 10/6/22 1833: Supervisory-Addendum Brief Verification & Attestation Participated in pt care: other (i did not see pt) Personally performed: other (i did not see pt) Care discussed with: Medical Student Procedures: n/a i did not see pt ALVA ORONA Jan 27, 2022 12:13 BRYANNA CAMPOS DO Jan 30, 2022 18:33
--- NOTE | 2022-01-27 12:50 | IRF PAI BIMS ---
BIMS BIMS IRF OTILIA BIMS: IRF OTILIA BIMS Response (Comments) Value Expression of Ideas and Wants (Verbal/Non Verbal) Frequently 1 Understanding Verbal Content Usually Understands 2 Should Brief Interview for Mental Status be Conducted Yes Repitition of Three Words Three 3 What year is it right now? Missed by 1m or no answer 0 What month is it right now? Accurate within 5 days 0 What week is it now? Incorrect or N/A 0 Recalls Socks Yes, After Cueing (Wear) 1 Recalls Blue Yes, No Cue Required 2 Recalls Bed No, Could Not Recall 0 Total 9 Brief Interview/Mental Status: No Notes: Correct score is 8/15 Dayna Crandall OT Jan 27, 2022 12:50
[2022-01-27 20:31] VITALS: BP 125/64
[2022-01-28] MEDS ORDERED: ACHD5005 PO (05:32)
[2022-01-28] MEDS ORDERED: FLUT9.9S NSEACH (05:32)
[2022-01-28] MEDS ORDERED: ENOX40DI8 SC (05:32)
[2022-01-28] MEDS ORDERED: MEMA10TA57 PO (05:32)
[2022-01-28] MEDS ORDERED: OMEG-154 PO (05:32)
[2022-01-28] MEDS ORDERED: CLN.1T PO (05:32)
[2022-01-28] MEDS ORDERED: ONDA4TAB11 PO (05:32)
[2022-01-28] MEDS ORDERED: AMLO-250 PO (05:32)
[2022-01-28] MEDS ORDERED: DIPH25CA48 PO (05:32)
[2022-01-28] MEDS ORDERED: GLIM1TAB4 PO (05:32)
[2022-01-28] MEDS ORDERED: HYDR-3923 PO (05:32)
[2022-01-28] MEDS ORDERED: CLON1PAT33 TD (05:32)
[2022-01-28] MEDS ORDERED: TRM50T PO (05:32)
[2022-01-28] MEDS ORDERED: LISI20TA26 PO (05:32)
[2022-01-28] MEDS ORDERED: DIPH1TAB25 PO (05:32)
[2022-01-28] MEDS ORDERED: ALPR.25T PO (05:32)
[2022-01-28] MEDS ORDERED: LOPE2CAP PO (05:32)
[2022-01-28] MEDS ORDERED: PANT40TA52 PO (05:32)
--- NOTE | 2022-01-28 05:34 | Discharge Summary ---
Diagnosis/Chief Complaint Date of Admission Jan 07, 2022 at 09:25 Date of Discharge Discharge Date: Jan 28, 2022 Discharge Diagnosis Assessment: S/p subtotal colectomy w/ileorectal anastamosis POD #42 Small bowel obstruction- Found on Xray (01-01-2022)- Resolved Hypokalemia Colon cancer T2DM HTN-OOC Dementia TBI at 22yo Plan: PT OT Monitor pain Monitor loose stools Monitor delirium 01/08/2022: Imodium Monitor cognitive changes 01/09/2022: Imodium Ultram 01/10/2022: Supportive care Expect labile confusion 01/10/2022: Restart DM med home dosing Monitor elevated BP 01/11/2022: DC Questran Increase BP meds with Hydralazine 01/12/2022: Monitor closely 01/13/2022: Monitor BP and sugar 01/14/2022: Supportive care Pain control 01/15/2022: Supportive care AL at DC 01/16/2022: Add Lomotil to twice a day scheduled for constipation 01/17/2022: Monitor constipation from Lomotil trial 01/18/2022: Continue with Lomotil 01/19/2022: Lomotil Pain control 01/20/2022: Monitor blood pressure and blood sugar 01/21/2022: Monitor loose stools 01/22/2022: Monitor closely Lomotil and Imodium 01/23/2022: Monitor closely Fall risk 01/24/2022: Monitor closely 01/25/2022: DC Thursday01/26/2022: Monitor closely 01/27/2022: Discharge to long-term tomorrow (1) Generalized weakness Status: Acute (2) Colon cancer (3) GI bleed (4) Edema (5) Diabetes (6) Dementia Status: Acute Discharge Summary Discharge Physical Examination Allergies: Coded Allergies: Penicillins (Unverified Allergy, Intermediate, Rash, 09/03/21) Sulfa (Sulfonamide Antibiotics) (Unverified Allergy, Intermediate, Rash, 09/03/21) Vitals & I&Os Vital Signs Date Time Temp Pulse Resp B/P (MAP) Pulse Ox O2 Delivery O2 Flow Rate FiO2 01/28/22 10:23 36.7 101 20 150/71 94 Room Air 01/25/22 06:42 0.00 General Appearance: Alert, Oriented X3, Cooperative Respiratory: Clear to Auscultation Cardiovascular: Regular Rate Neuro: Normal Gait, Normal Speech, Strength at 5/5 X4 Ext Hospital Course Was the Problem List Reviewed?: Yes Pt had a lengthy hospital course for 22 days after she was admitted from 4th floor from ICU. This was after a colon resection and post op ileus and a long refractory course of nausea and vomiting. Her labs remain stable. Blood sugar and blood pressure was managed with multiple medication changes. Overall she felt well. Due to dementia she required long-term placement. She was transferred there in improved condition. She will be seen by my long-term service. Labs (last 24 hrs) Laboratory Tests 01/07/22 21:37: Glucometer 199H 01/08/22 06:17: Sodium Level 141, Potassium Level 3.3L, Chloride Level 110H, Carbon Dioxide Level 20L, Anion Gap 11, Blood Urea Nitrogen 6L, Creatinine 0.57L, Estimat Glomerular Filtration Rate 92, BUN/Creatinine Ratio 11, Glucose Level 196H, Calcium Level 7.4L, Corrected Calcium 8.7, Total Bilirubin 0.2, Aspartate Amino Transf (AST/SGOT) 13, Alanine Aminotransferase (ALT/SGPT) 12, Alkaline Phosphatase 54, Total Protein 4.2L, Albumin 2.4L 01/08/22 06:22: Glucometer 272H 01/08/22 10:55: Glucometer 203H 01/08/22 12:00: White Blood Count 6.1, Red Blood Count 3.49L, Hemoglobin 9.1L, Hematocrit 29L, Mean Corpuscular Volume 84, Mean Corpuscular Hemoglobin 26, Mean Corpuscular Hemoglobin Concent 31L, Red Cell Distribution Width 14.4, Platelet Count 319, Mean Platelet Volume 8.7L, Immature Granulocyte % (Auto) 1, Neutrophils (%) (Auto) 69, Lymphocytes (%) (Auto) 21, Monocytes (%) (Auto) 5, Eosinophils (%) (Auto) 4, Basophils (%) (Auto) 1, Neutrophils # (Auto) 4.2, Lymphocytes # (Auto) 1.3, Monocytes # (Auto) 0.3, Eosinophils # (Auto) 0.2, Basophils # (Auto) 0.0, Immature Granulocyte # (Auto) 0.0 01/08/22 15:54: Glucometer 154H 01/08/22 20:23: Glucometer 191H 01/09/22 05:51: Glucometer 179H 01/09/22 10:42: Glucometer 187H 01/09/22 15:54: Glucometer 127H 01/09/22 20:45: Glucometer 202H 01/10/22 05:42: Glucometer 179H 01/10/22 11:19: Glucometer 280H 01/10/22 15:34: Glucometer 164H 01/10/22 20:11: Glucometer 218H 01/11/22 06:10: Glucometer 193H 01/11/22 10:52: Glucometer 162H 01/11/22 16:11: Glucometer 159H 01/11/22 20:06: Glucometer 132H 01/12/22 05:09: Glucometer 143H 01/12/22 11:07: Glucometer 178H 01/12/22 15:53: Glucometer 134H 01/12/22 21:05: Glucometer 156H 01/13/22 05:36: White Blood Count 4.6, Red Blood Count 3.24L, Hemoglobin 8.3L, Hematocrit 27L, Mean Corpuscular Volume 83, Mean Corpuscular Hemoglobin 26, Mean Corpuscular Hemoglobin Concent 31L, Red Cell Distribution Width 14.3, Platelet Count 309, Mean Platelet Volume 8.5L, Immature Granulocyte % (Auto) 0, Neutrophils (%) (Auto) 54, Lymphocytes (%) (Auto) 30, Monocytes (%) (Auto) 10, Eosinophils (%) (Auto) 5, Basophils (%) (Auto) 1, Neutrophils # (Auto) 2.5, Lymphocytes # (Auto) 1.4, Monocytes # (Auto) 0.5, Eosinophils # (Auto) 0.2, Basophils # (Auto) 0.0, Immature Granulocyte # (Auto) 0.0, Sodium Level 142, Potassium Level 3.4L, Chloride Level 109H, Carbon Dioxide Level 22, Anion Gap 11, Blood Urea Nitrogen 8, Creatinine 0.66, Estimat Glomerular Filtration Rate 89, BUN/Creatinine Ratio 12, Glucose Level 146H, Calcium Level 8.1L, Corrected Calcium 9.1, Total Bilirubin 0.2, Aspartate Amino Transf (AST/SGOT) 12, Alanine Aminotransferase (ALT/SGPT) 11, Alkaline Phosphatase 69, Total Protein 5.0L, Albumin 2.7L 01/13/22 10:58: Glucometer 167H 01/13/22 15:35: Glucometer 136H 01/13/22 20:47: Glucometer 166H 01/14/22 05:39: Glucometer 147H 01/14/22 10:51: Glucometer 153H 01/14/22 15:42: Glucometer 122H 01/14/22 20:28: Glucometer 110 01/15/22 05:48: Glucometer 137H 01/15/22 10:31: Glucometer 134H 01/15/22 15:12: Glucometer 86 01/15/22 20:08: Glucometer 95 01/16/22 05:46: Glucometer 124H 01/16/22 10:51: Glucometer 141H 01/16/22 15:11: Glucometer 142H 01/16/22 20:15: Glucometer 232H 01/17/22 05:59: Glucometer 133H 01/17/22 10:44: Glucometer 193H 01/17/22 15:17: Glucometer 151H 01/17/22 21:01: Glucometer 218H 01/18/22 05:15: Glucometer 144H 01/18/22 10:56: Glucometer 168H 01/18/22 15:18: Glucometer 149H 01/18/22 20:07: Glucometer 171H 01/19/22 05:34: Glucometer 134H 01/19/22 11:09: Glucometer 184H 01/19/22 15:54: Glucometer 123H 01/19/22 20:35: Glucometer 178H 01/20/22 05:13: White Blood Count 4.5, Red Blood Count 3.54L, Hemoglobin 8.9L, Hematocrit 29L, Mean Corpuscular Volume 81, Mean Corpuscular Hemoglobin 25, Mean Corpuscular Hemoglobin Concent 31L, Red Cell Distribution Width 14.3, Platelet Count 256, Mean Platelet Volume 9.2, Immature Granulocyte % (Auto) 0, Neutrophils (%) (Auto) 62, Lymphocytes (%) (Auto) 26, Monocytes (%) (Auto) 7, Eosinophils (%) (Auto) 5, Basophils (%) (Auto) 0, Neutrophils # (Auto) 2.8, Lymphocytes # (Auto) 1.2, Monocytes # (Auto) 0.3, Eosinophils # (Auto) 0.2, Basophils # (Auto) 0.0, Immature Granulocyte # (Auto) 0.0, Sodium Level 142, Potassium Level 3.5L, Chloride Level 106, Carbon Dioxide Level 25, Anion Gap 11, Blood Urea Nitrogen 9, Creatinine 0.62, Estimat Glomerular Filtration Rate 91, BUN/Creatinine Ratio 15, Glucose Level 151H, Calcium Level 8.1L, Corrected Calcium 9.1, Total Bilirubin 0.2, Aspartate Amino Transf (AST/SGOT) 11, Alanine Aminotransferase (ALT/SGPT) 14, Alkaline Phosphatase 115, Total Protein 4.9L, Albumin 2.7L 01/20/22 05:14: Glucometer 138H 01/20/22 10:58: Glucometer 177H 01/20/22 15:33: Glucometer 163H 01/20/22 20:02: Glucometer 189H 01/21/22 05:41: Glucometer 140H 01/21/22 16:24: Glucometer 151H 01/21/22 19:53: Glucometer 212H 01/22/22 05:44: Glucometer 134H 01/22/22 10:35: Glucometer 238H 01/22/22 16:41: Glucometer 124H 01/22/22 21:23: Glucometer 184H 01/23/22 05:43: Glucometer 156H 01/23/22 11:26: Glucometer 211H 01/23/22 16:10: Glucometer 108 01/23/22 19:59: Glucometer 185H 01/24/22 05:30: Glucometer 146H 01/24/22 10:30: Glucometer 228H 01/24/22 16:02: Glucometer 224H 01/24/22 20:05: Glucometer 168H 01/25/22 06:42: Glucometer 160H 01/25/22 12:02: Glucometer 181H 01/25/22 15:08: Glucometer 167H 01/25/22 19:58: Glucometer 186H 01/26/22 06:36: Glucometer 143H 01/26/22 08:55: White Blood Count 3.6L, Red Blood Count 3.67L, Hemoglobin 8.9L, Hematocrit 30L, Mean Corpuscular Volume 82, Mean Corpuscular Hemoglobin 24L, Mean Corpuscular Hemoglobin Concent 30L, Red Cell Distribution Width 14.6H, Platelet Count 245, Mean Platelet Volume 9.3, Immature Granulocyte % (Auto) 0, Neutrophils (%) (Auto) 64, Lymphocytes (%) (Auto) 23, Monocytes (%) (Auto) 7, Eosinophils (%) (Auto) 5, Basophils (%) (Auto) 1, Neutrophils # (Auto) 2.3, Lymphocytes # (Auto) 0.8L, Monocytes # (Auto) 0.3, Eosinophils # (Auto) 0.2, Basophils # (Auto) 0.0, Immature Granulocyte # (Auto) 0.0, Sodium Level 140, Potassium Level 3.8, Chloride Level 107, Carbon Dioxide Level 23, Anion Gap 10, Blood Urea Nitrogen 7, Creatinine 0.70, Estimat Glomerular Filtration Rate 88, BUN/Creatinine Ratio 10, Glucose Level 228H, Calcium Level 8.3L, Corrected Calcium 9.3, Total Bilirub in 0.2, Aspartate Amino Transf (AST/SGOT) 17, Alanine Aminotransferase (ALT/SGPT) 14, Alkaline Phosphatase 87, Total Protein 5.5L, Albumin 2.8L 01/26/22 10:50: Glucometer 202H 01/26/22 15:29: Glucometer 171H 01/26/22 20:08: Glucometer 237H 01/27/22 05:27: Glucometer 165H 01/27/22 10:48: Glucometer 247H 01/27/22 15:25: Glucometer 121H 01/27/22 20:30: Glucometer 235H 01/28/22 05:36: Glucometer 214H Pending Labs Laboratory Tests 01/07/22 21:37: Glucometer 199 01/08/22 06:17: Sodium Level 141, Potassium Level 3.3, Chloride Level 110, Carbon Dioxide Level 20, Anion Gap 11, Blood Urea Nitrogen 6, Creatinine 0.57, Estimat Glomerular Filtration Rate 92, BUN/Creatinine Ratio 11, Glucose Level 196, Calcium Level 7.4, Corrected Calcium 8.7, Total Bilirubin 0.2, Aspartate Amino Transf (AST/SGOT) 13, Alanine Aminotransferase (ALT/SGPT) 12, Alkaline Phosphatase 54, Total Protein 4.2, Albumin 2.4 01/08/22 06:22: Glucometer 272 01/08/22 10:55: Glucometer 203 01/08/22 12:00: White Blood Count 6.1, Red Blood Count 3.49, Hemoglobin 9.1, Hematocrit 29, Mean Corpuscular Volume 84, Mean Corpuscular Hemoglobin 26, Mean Corpuscular Hemoglobin Concent 31, Red Cell Distribution Width 14.4, Platelet Count 319, Mean Platelet Volume 8.7, Immature Granulocyte % (Auto) 1, Neutrophils (%) (Auto) 69, Lymphocytes (%) (Auto) 21, Monocytes (%) (Auto) 5, Eosinophils (%) (Auto) 4, Basophils (%) (Auto) 1, Neutrophils # (Auto) 4.2, Lymphocytes # (Auto) 1.3, Monocytes # (Auto) 0.3, Eosinophils # (Auto) 0.2, Basophils # (Auto) 0.0, Immature Granulocyte # (Auto) 0.0 01/08/22 15:54: Glucometer 154 01/08/22 20:23: Glucometer 191 01/09/22 05:51: Glucometer 179 01/09/22 10:42: Glucometer 187 01/09/22 15:54: Glucometer 127 01/09/22 20:45: Glucometer 202 01/10/22 05:42: Glucometer 179 01/10/22 11:19: Glucometer 280 01/10/22 15:34: Glucometer 164 01/10/22 20:11: Glucometer 218 01/11/22 06:10: Glucometer 193 01/11/22 10:52: Glucometer 162 01/11/22 16:11: Glucometer 159 01/11/22 20:06: Glucometer 132 01/12/22 05:09: Glucometer 143 01/12/22 11:07: Glucometer 178 01/12/22 15:53: Glucometer 134 01/12/22 21:05: Glucometer 156 01/13/22 05:36: White Blood Count 4.6, Red Blood Count 3.24, Hemoglobin 8.3, Hematocrit 27, Mean Corpuscular Volume 83, Mean Corpuscular Hemoglobin 26, Mean Corpuscular Hemoglobin Concent 31, Red Cell Distribution Width 14.3, Platelet Count 309, Mean Platelet Volume 8.5, Immature Granulocyte % (Auto) 0, Neutrophils (%) (Auto) 54, Lymphocytes (%) (Auto) 30, Monocytes (%) (Auto) 10, Eosinophils (%) (Auto) 5, Basophils (%) (Auto) 1, Neutrophils # (Auto) 2.5, Lymphocytes # (Auto) 1.4, Monocytes # (Auto) 0.5, Eosinophils # (Auto) 0.2, Basophils # (Auto) 0.0, Immature Granulocyte # (Auto) 0.0, Sodium Level 142, Potassium Level 3.4, Chloride Level 109, Carbon Dioxide Level 22, Anion Gap 11, Blood Urea Nitrogen 8, Creatinine 0.66, Estimat Glomerular Filtration Rate 89, BUN/Creatinine Ratio 12, Glucose Level 146, Calcium Level 8.1, Corrected Calcium 9.1, Total Bilirubin 0.2, Aspartate Amino Transf (AST/SGOT) 12, Alanine Aminotransferase (ALT/SGPT) 11, Alkaline Phosphatase 69, Total Protein 5.0, Albumin 2.7 01/13/22 10:58: Glucometer 167 01/13/22 15:35: Glucometer 136 01/13/22 20:47: Glucometer 166 01/14/22 05:39: Glucometer 147 01/14/22 10:51: Glucometer 153 01/14/22 15:42: Glucometer 122 01/14/22 20:28: Glucometer 110 01/15/22 05:48: Glucometer 137 01/15/22 10:31: Glucometer 134 01/15/22 15:12: Glucometer 86 01/15/22 20:08: Glucometer 95 01/16/22 05:46: Glucometer 124 01/16/22 10:51: Glucometer 141 01/16/22 15:11: Glucometer 142 01/16/22 20:15: Glucometer 232 01/17/22 05:59: Glucometer 133 01/17/22 10:44: Glucometer 193 01/17/22 15:17: Glucometer 151 01/17/22 21:01: Glucometer 218 01/18/22 05:15: Glucometer 144 01/18/22 10:56: Glucometer 168 01/18/22 15:18: Glucometer 149 01/18/22 20:07: Glucometer 171 01/19/22 05:34: Glucometer 134 01/19/22 11:09: Glucometer 184 01/19/22 15:54: Glucometer 123 01/19/22 20:35: Glucometer 178 01/20/22 05:13: White Blood Count 4.5, Red Blood Count 3.54, Hemoglobin 8.9, Hematocrit 29, Mean Corpuscular Volume 81, Mean Corpuscular Hemoglobin 25, Mean Corpuscular Hemoglobin Concent 31, Red Cell Distribution Width 14.3, Platelet Count 256, Mean Platelet Volume 9.2, Immature Granulocyte % (Auto) 0, Neutrophils (%) (Auto) 62, Lymphocytes (%) (Auto) 26, Monocytes (%) (Auto) 7, Eosinophils (%) (Auto) 5, Basophils (%) (Auto) 0, Neutrophils # (Auto) 2.8, Lymphocytes # (Auto) 1.2, Monocytes # (Auto) 0.3, Eosinophils # (Auto) 0.2, Basophils # (Auto) 0.0, Immature Granulocyte # (Auto) 0.0, Sodium Level 142, Potassium Level 3.5, Chloride Level 106, Carbon Dioxide Level 25, Anion Gap 11, Blood Urea Nitrogen 9, Creatinine 0.62, Estimat Glomerular Filtration Rate 91, BUN/Creatinine Ratio 15, Glucose Level 151, Calcium Level 8.1, Corrected Calcium 9.1, Total Bilirubin 0.2, Aspartate Amino Transf (AST/SGOT) 11, Alanine Aminotransferase (ALT/SGPT) 14, Alkaline Phosphatase 115, Total Protein 4.9, Albumin 2.7 01/20/22 05:14: Glucometer 138 01/20/22 10:58: Glucometer 177 01/20/22 15:33: Glucometer 163 01/20/22 20:02: Glucometer 189 01/21/22 05:41: Glucometer 140 01/21/22 16:24: Glucometer 151 01/21/22 19:53: Glucometer 212 01/22/22 05:44: Glucometer 134 01/22/22 10:35: Glucometer 238 01/22/22 16:41: Glucometer 124 01/22/22 21:23: Glucometer 184 01/23/22 05:43: Glucometer 156 01/23/22 11:26: Glucometer 211 01/23/22 16:10: Glucometer 108 01/23/22 19:59: Glucometer 185 01/24/22 05:30: Glucometer 146 01/24/22 10:30: Glucometer 228 01/24/22 16:02: Glucometer 224 01/24/22 20:05: Glucometer 168 01/25/22 06:42: Glucometer 160 01/25/22 12:02: Glucometer 181 01/25/22 15:08: Glucometer 167 01/25/22 19:58: Glucometer 186 01/26/22 06:36: Glucometer 143 01/26/22 08:55: White Blood Count 3.6, Red Blood Count 3.67, Hemoglobin 8.9, Hematocrit 30, Mean Corpuscular Volume 82, Mean Corpuscular Hemoglobin 24, Mean Corpuscular Hemoglobin Concent 30, Red Cell Distribution Width 14.6, Platelet Count 245, Mean Platelet Volume 9.3, Immature Granulocyte % (Auto) 0, Neutrophils (%) (Auto) 64, Lymphocytes (%) (Auto) 23, Monocytes (%) (Auto) 7, Eosinophils (%) (Auto) 5, Basophils (%) (Auto) 1, Neutrophils # (Auto) 2.3, Lymphocytes # (Auto) 0.8, Monocytes # (Auto) 0.3, Eosinophils # (Auto) 0.2, Basophils # (Auto) 0.0, Immature Granulocyte # (Auto) 0.0, Sodium Level 140, Potassium Level 3.8, Chloride Level 107, Carbon Dioxide Level 23, Anion Gap 10, Blood Urea Nitrogen 7, Creatinine 0.70, Estimat Glomerular Filtration Rate 88, BUN/Creatinine Ratio 10, Glucose Level 228, Calcium Level 8.3, Corrected Calcium 9.3, Total Bilirubin 0.2, Aspartate Amino Transf (AST/SGOT) 17, Alanine Aminotransferase (ALT/SGPT) 14, Alkaline Phosphatase 87, Total Protein 5.5, Albumin 2.8 01/26/22 10:50: Glucometer 202 01/26/22 15:29: Glucometer 171 01/26/22 20:08: Glucometer 237 01/27/22 05:27: Glucometer 165 01/27/22 10:48: Glucometer 247 01/27/22 15:25: Glucometer 121 01/27/22 20:30: Glucometer 235 01/28/22 05:36: Glucometer 214 Discharge Home Medications: Active Scripts Active Ondansetron Odt (Ondansetron) 4 Mg Tab.rapdis 4 Mg PO Q6H PRN Loperamide (Loperamide HCl) 2 Mg Capsule 2 Mg PO QID Diphenoxylate-Atrop 2.5-0.025 (Diphenoxylate HCl/Atropine) 2.5 Mg-0.025 Mg Tablet 1 Ea PO BID Xanax Tablet (Alprazolam) 0.25 Mg Tab 0.25 Mg PO Q8H PRN Tramadol HCl 50 Mg Tablet 50 Mg PO TID PRN HYDROcodone/APAP 5 MG/325 MG TAB (Acetaminophen/Hydrocodone Bitart) 1 Tab Tab 1 Ea PO Q4H PRN Amlodipine Besylate 5 Mg Tablet 5 Mg PO BID Hydralazine HCl 25 Mg Tablet 25 Mg PO TID Clonidine HCl 0.1 Mg Tablet 0.1 Mg PO Q4HR PRN Clonidine TTS 1 Patch (Clonidine) 0.1 Mg/24 Hour Patch.tdwk 0.1 Mg TD Q7D@09 Enoxaparin Sodium 40 Mg/0.4 Ml Syringe 40 Mg SC Q24H Pantoprazole Sodium 40 Mg Tablet.dr 40 Mg PO DAILY Lisinopril 20 Mg Tablet 20 Mg PO DAILY Flonase Allergy Relief (Fluticasone Propionate) 50 Mcg/Actuation [place].susp 1-2 [place] NSEACH DAILY PRN Memantine HCl 10 Mg Tablet 10 Mg PO BID Glimepiride 1 Mg Tablet 1 Mg PO BID Diphenhydramine HCl 25 Mg Capsule 25 Mg PO BID Fish Oil [place]-3 Softgel ([place]-3S/Dha/Epa/Fish Oil) 980 Mg-253 Mg-647 Mg-1,400 Mg Capsule.dr 1 Each PO BID Instructions to patient/family Please see electronic discharge instructions given to patient. Diagnosis/Problems Diagnosis/Problems (1) Generalized weakness Status: Acute (2) Colon cancer (3) GI bleed (4) Edema (5) Diabetes (6) Dementia Status: Acute JAMES BOWDEN DO Jan 28, 2022 05:34
--- NOTE | 2022-01-28 05:34 | Discharge Inst-Skilled Nursing ---
Discharge Inst-Skilled NF Reconcile Patient Problems Problems Reviewed?: Yes Patient Instructions Patient Problems: Debility Dementia Colon cancer Goal: Return back home Consult/Follow Up/Orders Follow Up Appt.: [facility] rounds per Dr. Acosta and Bev Gambino Skilled NF Admit to: [facility] Certification (SNF) I certify that SNF services are required to be given on an inpatient basis because of the above named patient's need for long term care on a continuing basis for the conditions(s) for which he/she was receiving inpatient hospital services prior to his/her transfer to the [facility]. Residential Facility Order: Nursing Services, Accountant Budget-Evaluate & Treat, Physical Therapy-Evaluate & Treat, Speech Language-Evaluate & Treat Oxygen Delivery Method: Room Air Discharge Diet: ADA Diet Resuscitation Status: Do Not Resuscitate New & Resume Previous Orders New Medications: ALPRAZolam (Xanax Tablet) 0.25 Mg Tab 0.25 MG PO Q8H PRN for ANXIETY, #30 TAB Amlodipine Besylate (Amlodipine Besylate) 5 Mg Tablet 5 MG PO BID, #60 TAB Clonidine (Clonidine TTS 1 Patch) 0.1 Mg/24 Hour Patch.tdwk 0.1 MG TD Q7D@09, #4 PATCH Clonidine HCl (Clonidine HCl) 0.1 Mg Tablet 0.1 MG PO Q4HR PRN for sbp>170, #30 TAB Diphenoxylate HCl/Atropine (Diphenoxylate-Atrop 2.5-0.025) 2.5 Mg-0.025 Mg Tablet 1 EA PO BID, #60 TAB Enoxaparin Sodium (Enoxaparin Sodium) 40 Mg/0.4 Ml Syringe 40 MG SC Q24H, #14 SYRINGE Hydralazine HCl (Hydralazine HCl) 25 Mg Tablet 25 MG PO TID, #90 TAB Hydrocodone Bit/Acetaminophen (HYDROcodone/APAP 5 MG/325 MG TAB) 1 Tab Tab 1 EA PO Q4H PRN for PAIN-MODERATE (5-7), #30 TAB Loperamide HCl (Loperamide) 2 Mg Capsule 2 MG PO QID, #120 CAP Ondansetron (Ondansetron Odt) 4 Mg Tab.rapdis 4 MG PO Q6H PRN for NAUSEA/VOMITING-1ST LINE, #12 TAB Tramadol HCl (Tramadol HCl) 50 Mg Tablet 50 MG PO TID PRN for PAIN-MODERATE (5-7), #30 TAB Continued Medications: Diphenhydramine HCl (Diphenhydramine HCl) 25 Mg Capsule 25 MG PO BID, #60 CAP (This prescription has been renewed) Fluticasone Propionate (Flonase Allergy Relief) 50 Mcg/Actuation [place].susp 1-2 [place] NSEACH DAILY PRN for CONGESTION, #1 EACH (This prescription has been renewed) Glimepiride (Glimepiride) 1 Mg Tablet 1 MG PO BID, #60 TAB (This prescription has been renewed) Lisinopril (Lisinopril) 20 Mg Tablet 20 MG PO DAILY, #30 TAB (This prescription has been renewed) Memantine HCl (Memantine HCl) 10 Mg Tablet 10 MG PO BID, #60 TAB (This prescription has been renewed) [place]-3S/Dha/Epa/Fish Oil (Fish Oil [place]-3 Softgel) 980 Mg-253 Mg-647 Mg-1,400 Mg Capsule.dr 1 EACH PO BID, #60 CAP (This prescription has been renewed) Pantoprazole Sodium (Pantoprazole Sodium) 40 Mg Tablet.dr 40 MG PO DAILY, #30 TAB (This prescription has been renewed) Discontinued Medications: Amlodipine Besylate (Amlodipine Besylate) 5 Mg Tablet 5 MG PO DAILY, #30 TAB Aspirin (Aspirin EC) 81 Mg Tablet.dr 81 MG PO DAILY, TAB Calcium Carbonate (Calcium Carbonate) 600 Mg Calcium (1500 Mg) Tablet 600 MG PO DAILY, TAB Loperamide HCl (Loperamide) 2 Mg Capsule 2 MG PO QID PRN for DIARRHEA, CAP Meclizine HCl (Meclizine HCl) 25 Mg Tablet 25 MG PO BID, TAB Metformin HCl (Metformin HCl) 1,000 Mg Tablet 1000 MG PO BID, TAB Olanzapine (Olanzapine) 2.5 Mg Tablet 5 MG PO HS, #30 TAB Sucralfate (Sucralfate) 1 Gram Tablet 1 GM PO ACHS, #120 TAB Mayra Acosta Jan 28, 2022 05:33 MAYRA ACOSTA DO Jan 28, 2022 05:34
[2022-01-28] MEDS: inSUlin ASPART (NovoLOG) 1 UNIT/0.01 ML (CHARGE PER UNIT) SC SCH (06:28)
[2022-01-28] MEDS: PANTOPRAZOLE 40 MG (PROTONIX) TAB PO SCH (06:30)
[2022-01-28 07:30] VITALS: BP 150/71
[2022-01-28] MEDS: LOPERAMIDE 2 MG (IMODIUM) TABLET PO SCH (07:39)
[2022-01-28] MEDS: lisINopril 20 MG (PRINIVIL) TABLET PO SCH (07:39)
[2022-01-28] MEDS: DIPHENOXYLATE/ATROPINE 2.5MG/0.025MG (LOMOTIL) TAB PO SCH (07:40)
[2022-01-28] MEDS: amLODIPine 5 MG (NORVASC) TAB PO SCH (07:40)
[2022-01-28] MEDS: hydrALAZINE (APRESOLINE) 25 MG TAB PO SCH (07:40)
[2022-01-28] MEDS: polyethylene glycoL POWDER 17 GM (MIRALAX) PACK PO SCH (07:40)
[2022-01-28] MEDS: MEMANTINE 10 MG (NAMENDA) TABLET PO SCH (07:40)
[2022-01-28] MEDS: cloNIDine 0.1 MG PATCH (CATAPRES TTS) TDSY TD SCH (07:41)
[2022-01-28] MEDS: CLONIDINE PATCH REMOVAL TP SCH (07:42)
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
[2022-01-28] MEDS: ENOXAPARIN 40 MG/0.4 ML (LOVENOX) SYR SC SCH (09:07)
[2022-01-28 10:23] VITALS: BP 150/71
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
== END 2022-01-28 10:29 | DRG 92 ==
PROVIDERS: ADMIT Internal Medicine; ATTEND Internal Medicine
DX: G72.89 Other specified myopathies (principal); C77.2 Secondary and unspecified malignant neoplasm of intra-abdominal lymph nodes; E46 Unspecified protein-calorie malnutrition; Z85.038 Personal history of other malignant neoplasm of large intestine; F03.90 Unspecified dementia, unspecified severity, without behavioral disturbance, psychotic disturbance, mood disturbance, and anxiety; E87.6 Hypokalemia; E78.00 Pure hypercholesterolemia, unspecified; Z66 Do not resuscitate; I10 Essential (primary) hypertension; E11.42 Type 2 diabetes mellitus with diabetic polyneuropathy; R33.9 Retention of urine, unspecified; B35.1 Tinea unguium; R19.7 Diarrhea, unspecified; K21.9 Gastro-esophageal reflux disease without esophagitis; F41.9 Anxiety disorder, unspecified; F32.A Depression, unspecified; E66.9 Obesity, unspecified; Z90.49 Acquired absence of other specified parts of digestive tract; Z68.39 Body mass index [BMI] 39.0-39.9, adult; Z87.820 Personal history of traumatic brain injury; Z87.891 Personal history of nicotine dependence; Z79.82 Long term (current) use of aspirin; Z79.84 Long term (current) use of oral hypoglycemic drugs; Z88.0 Allergy status to penicillin; Z88.2 Allergy status to sulfonamides
CPT/HCPCS: 36415; 80053; 82947; 85025; 94760

== ENCOUNTER 2022-02-12 13:32 | Outpatient (RCR) | payer MEDICARE ==
[~2022-02-12 13:32] MED LIST changes: +ACHD5005 PO; +ALPR.25T PO; +CLN.1T PO; +CLON1PAT33 TD; +DIPH1TAB25 PO; +ENOX40DI8 SC; +HYDR-3923 PO; +ONDA4TAB11 PO; +TRM50T PO
[2022-02-12 15:53] LABS: BASOPHILS % (AUTO) 1 % (0-10); EOSINOPHILS # (AUTO) 0.2 10^3/uL (0.0-0.3); EOSINOPHILS % (AUTO) 4 % (0-10); HEMATOCRIT 31 % (35-52); HEMOGLOBIN 9.4 g/dL (11.5-16.0); LYMPHOCYTES # (AUTO) 1.5 10^3/uL (1.0-4.0); LYMPHOCYTES % (AUTO) 28 % (12-44); MEAN CORPUSCULAR HEMOGLOBIN 24 pg (25-34); MEAN CORPUSCULAR HGB CONC 31 g/dL (32-36); MEAN CORPUSCULAR VOLUME 78 fL (80-99); MEAN PLATELET VOLUME 9.4 fL (9.0-12.2); MONOCYTES # (AUTO) 0.4 10^3/uL (0.0-1.0); MONOCYTES % (AUTO) 7 % (0-12); NEUTROPHILS # (AUTO) 3.2 10^3/uL (1.8-7.8); NEUTROPHILS % (AUTO) 60 % (42-75); PLATELET COUNT 257 10^3/uL (130-400); WHITE BLOOD COUNT 5.4 10^3/uL (4.3-11.0)
[2022-02-12 16:08] LABS: ALBUMIN 3.6 GM/DL (3.2-4.5); BILIRUBIN,TOTAL 0.2 MG/DL (0.1-1.0); CALCIUM 8.9 MG/DL (8.5-10.1); CREATININE SERUM 0.78 MG/DL (0.60-1.30); POTASSIUM 3.7 MMOL/L (3.6-5.0); TOTAL PROTEIN 6.1 GM/DL (6.4-8.2)
== END 2022-02-24 | disposition home or self-care (01) ==
LOC: ONC 13:32
PROVIDERS: ATTEND Internal Medicine Hematology & Oncology
DX: C18.9 Malignant neoplasm of colon, unspecified (principal); F03.90 Unspecified dementia, unspecified severity, without behavioral disturbance, psychotic disturbance, mood disturbance, and anxiety; E11.9 Type 2 diabetes mellitus without complications; I10 Essential (primary) hypertension; R19.7 Diarrhea, unspecified; E66.9 Obesity, unspecified; K25.9 Gastric ulcer, unspecified as acute or chronic, without hemorrhage or perforation
CPT/HCPCS: 80053; 82378; 82728; 83540; 83550; 85025; G0463; 36415; 99204

== ENCOUNTER 2022-03-19 10:52 | Outpatient (RCR) | payer MEDICARE ==
[2022-03-19 12:58] LABS: BASOPHILS % (AUTO) 1 % (0-10); EOSINOPHILS # (AUTO) 0.1 10^3/uL (0.0-0.3); EOSINOPHILS % (AUTO) 2 % (0-10); HEMATOCRIT 35 % (35-52); HEMOGLOBIN 10.5 g/dL (11.5-16.0); LYMPHOCYTES # (AUTO) 0.9 10^3/uL (1.0-4.0); LYMPHOCYTES % (AUTO) 15 % (12-44); MEAN CORPUSCULAR HEMOGLOBIN 23 pg (25-34); MEAN CORPUSCULAR HGB CONC 30 g/dL (32-36); MEAN CORPUSCULAR VOLUME 75 fL (80-99); MEAN PLATELET VOLUME 9.1 fL (9.0-12.2); MONOCYTES # (AUTO) 0.4 10^3/uL (0.0-1.0); MONOCYTES % (AUTO) 7 % (0-12); NEUTROPHILS # (AUTO) 4.5 10^3/uL (1.8-7.8); NEUTROPHILS % (AUTO) 76 % (42-75); PLATELET COUNT 202 10^3/uL (130-400); WHITE BLOOD COUNT 5.9 10^3/uL (4.3-11.0)
[2022-03-19 12:59] LABS: ALBUMIN 3.9 GM/DL (3.2-4.5)
[2022-03-19 13:00] LABS: POTASSIUM 3.7 MMOL/L (3.6-5.0)
[2022-03-19 13:01] LABS: CALCIUM 9.3 MG/DL (8.5-10.1)
[2022-03-19 13:04] LABS: BILIRUBIN,TOTAL 0.3 MG/DL (0.1-1.0)
[2022-03-19 13:06] LABS: CREATININE SERUM 0.71 MG/DL (0.60-1.30)
== END 2022-03-26 | disposition home or self-care (01) ==
LOC: ONC 10:52
PROVIDERS: ATTEND Internal Medicine Hematology & Oncology
DX: C18.9 Malignant neoplasm of colon, unspecified (principal); F03.90 Unspecified dementia, unspecified severity, without behavioral disturbance, psychotic disturbance, mood disturbance, and anxiety; E11.9 Type 2 diabetes mellitus without complications; I10 Essential (primary) hypertension; D50.9 Iron deficiency anemia, unspecified; R19.7 Diarrhea, unspecified; K25.9 Gastric ulcer, unspecified as acute or chronic, without hemorrhage or perforation; E66.9 Obesity, unspecified; Z90.49 Acquired absence of other specified parts of digestive tract
CPT/HCPCS: 80053; 82378; 85025; G0463; 99213

== ENCOUNTER 2022-06-11 13:13 | Outpatient (RCR) | payer MEDICARE ==
[~2022-06-11 13:13] MED LIST changes: +DIPH-1122 PO; -DIPH25CA48 PO
[2022-06-11 13:31] LABS: BASOPHILS % (AUTO) 1 % (0-10); EOSINOPHILS # (AUTO) 0.2 10^3/uL (0.0-0.3); EOSINOPHILS % (AUTO) 3 % (0-10); HEMATOCRIT 38 % (35-52); HEMOGLOBIN 11.8 g/dL (11.5-16.0); LYMPHOCYTES # (AUTO) 1.4 10^3/uL (1.0-4.0); LYMPHOCYTES % (AUTO) 25 % (12-44); MEAN CORPUSCULAR HEMOGLOBIN 24 pg (25-34); MEAN CORPUSCULAR HGB CONC 31 g/dL (32-36); MEAN CORPUSCULAR VOLUME 78 fL (80-99); MEAN PLATELET VOLUME 8.7 fL (9.0-12.2); MONOCYTES # (AUTO) 0.4 10^3/uL (0.0-1.0); MONOCYTES % (AUTO) 7 % (0-12); NEUTROPHILS # (AUTO) 3.7 10^3/uL (1.8-7.8); NEUTROPHILS % (AUTO) 65 % (42-75); PLATELET COUNT 172 10^3/uL (130-400); WHITE BLOOD COUNT 5.6 10^3/uL (4.3-11.0)
[2022-06-11 14:00] LABS: ALBUMIN 3.7 GM/DL (3.2-4.5)
[2022-06-11 14:01] LABS: POTASSIUM 3.9 MMOL/L (3.6-5.0)
[2022-06-11 14:02] LABS: CALCIUM 8.7 MG/DL (8.5-10.1)
[2022-06-11 14:03] LABS: TOTAL PROTEIN 6.7 GM/DL (6.4-8.2)
[2022-06-11 14:05] LABS: BILIRUBIN,TOTAL 0.2 MG/DL (0.1-1.0)
[2022-06-11 14:07] LABS: CREATININE SERUM 0.77 MG/DL (0.60-1.30)
== END 2022-06-24 | disposition home or self-care (01) ==
LOC: ONC 13:13
PROVIDERS: ATTEND Internal Medicine Hematology & Oncology
DX: C18.9 Malignant neoplasm of colon, unspecified (principal); F03.90 Unspecified dementia, unspecified severity, without behavioral disturbance, psychotic disturbance, mood disturbance, and anxiety; E11.9 Type 2 diabetes mellitus without complications; I10 Essential (primary) hypertension; D50.9 Iron deficiency anemia, unspecified; R19.7 Diarrhea, unspecified; E66.9 Obesity, unspecified; K25.9 Gastric ulcer, unspecified as acute or chronic, without hemorrhage or perforation; Z90.49 Acquired absence of other specified parts of digestive tract
CPT/HCPCS: 36415; 80053; 82378; 82728; 83540; 83550; 85025

== ENCOUNTER 2022-09-03 09:50 | Outpatient (RCR) | payer MEDICARE ==
[2022-09-03 10:17] LABS: BASOPHILS % (AUTO) 1 % (0-10); EOSINOPHILS # (AUTO) 0.2 10^3/uL (0.0-0.3); EOSINOPHILS % (AUTO) 3 % (0-10); HEMATOCRIT 40 % (35-52); HEMOGLOBIN 12.8 g/dL (11.5-16.0); LYMPHOCYTES # (AUTO) 1.1 10^3/uL (1.0-4.0); LYMPHOCYTES % (AUTO) 18 % (12-44); MEAN CORPUSCULAR HEMOGLOBIN 26 pg (25-34); MEAN CORPUSCULAR HGB CONC 32 g/dL (32-36); MEAN CORPUSCULAR VOLUME 82 fL (80-99); MEAN PLATELET VOLUME 9.3 fL (9.0-12.2); MONOCYTES # (AUTO) 0.3 10^3/uL (0.0-1.0); MONOCYTES % (AUTO) 5 % (0-12); NEUTROPHILS # (AUTO) 4.4 10^3/uL (1.8-7.8); NEUTROPHILS % (AUTO) 73 % (42-75); PLATELET COUNT 184 10^3/uL (130-400)
[2022-09-03 10:37] LABS: ALBUMIN 3.9 GM/DL (3.2-4.5); BILIRUBIN,TOTAL 0.3 MG/DL (0.1-1.0); CALCIUM 8.7 MG/DL (8.5-10.1); CREATININE SERUM 0.82 MG/DL (0.60-1.30); POTASSIUM 4.2 MMOL/L (3.6-5.0); TOTAL PROTEIN 6.9 GM/DL (6.4-8.2)
== END 2022-09-24 | disposition home or self-care (01) ==
LOC: ONC 09:50
PROVIDERS: ATTEND Internal Medicine Hematology & Oncology
DX: C18.9 Malignant neoplasm of colon, unspecified (principal); D50.9 Iron deficiency anemia, unspecified; F03.90 Unspecified dementia, unspecified severity, without behavioral disturbance, psychotic disturbance, mood disturbance, and anxiety; E11.9 Type 2 diabetes mellitus without complications; I10 Essential (primary) hypertension; R19.7 Diarrhea, unspecified; E66.9 Obesity, unspecified; K25.9 Gastric ulcer, unspecified as acute or chronic, without hemorrhage or perforation; Z90.49 Acquired absence of other specified parts of digestive tract
CPT/HCPCS: 36415; 80053; 82728; 83540; 83550; 85025

== ENCOUNTER → 2022-10-29 | Outpatient (CLI) | payer MEDICARE | LOC: RAD 07:45 | PROVIDERS: ATTEND Internal Medicine | DX: Z12.31 Encounter for screening mammogram for malignant neoplasm of breast (principal); Z53.9 Procedure and treatment not carried out, unspecified reason ==

== ENCOUNTER 2022-12-10 06:23 | Outpatient (CLI) | payer MEDICARE ==
[~2022-12-10] VITALS: Ht 157.5 cm; Wt 86.2 kg
== END 2022-12-10 14:46 | disposition home or self-care (01) ==
LOC: PREOP 06:23
PROVIDERS: ATTEND Surgery
DX: Z01.818 Encounter for other preprocedural examination (principal)

== ENCOUNTER 2022-12-23 07:24 | Day surgery (SDC) | payer MEDICARE ==
[~2022-12-23] VITALS: Ht 157 cm; Wt 86.2 kg
[~2022-12-23 07:24] MED LIST changes: +LACTATED RINGERS 1,000 ML 1,000 ML IV STA
--- NOTE | 2022-12-23 08:03 | Progress Note-Pre Operative ---
Pre-Operative Progress Note Date H&P Reviewed: Dec 23, 2022 Time H&P Reviewed: 07:53 History & Physical: H&P Reviewed, Patient Examed, No changes noted Pre-Operative Diagnosis: history of colon cancer KEERTHI ESPINOZA DO Dec 23, 2022 08:03
[2022-12-23 08:14] VITALS: BP 152/78
[2022-12-23 08:30] VITALS: BP 107/53
[2022-12-23 08:35] VITALS: BP 107/56
--- NOTE | 2022-12-23 08:36 | Progress Note-Post Operative ---
Post-Operative Progess Note Surgeon (s)/Zoning Administrator (s) Surgeon KEERTHI ESPINOZA DO Zoning Administrator: none Pre-Operative Diagnosis history of colon cancer Post-Operative Diagnosis ileorectal anastamotic mucosal changes Procedure & Operative Findings Date of Procedure 12/23/22 Procedure Performed/Findings flexible sigmoidoscopy with snare biopsy Anesthesia Type per BENZENE WASHER Estimated Blood Loss Estimated blood loss (mL): scant Specimens/Packing Specimens Removed ileorectal anastamosis KEERTHI ESPINOZA DO Dec 23, 2022 08:36
--- NOTE | 2022-12-23 08:38 | Discharge Inst-Simple/Standard ---
Discharge Inst-Standard Patient Instructions/Follow Up Plan of Care/Instructions/FU: Kasey 2 weeks Activity as Tolerated: Yes Discharge Diet: Regular Diet KEERTHI ESPINOZA DO Dec 23, 2022 08:38
[2022-12-23 08:40] VITALS: BP 108/54
[2022-12-23 09:38] VITALS: BP 108/54
--- NOTE | 2022-12-23 13:28 | Anesthesia-General Post-Op ---
MAC Patient Condition Mental Status/LOC: Same as Preop Cardiovascular: Satisfactory Nausea/Vomiting: Absent Respiratory: Satisfactory Pain: Controlled Complications: Absent Post Op Complications Complications None Follow Up Care/Instructions Patient Instructions None needed. Anesthesiology Discharge Order Discharge Order Patient is doing well, no complaints, stable vital signs, no apparent adverse anesthesia problems. No complications reported per nursing. MARYANNE MERCEDES CRNA Dec 23, 2022 13:28
--- NOTE | 2022-12-23 15:26 | OPERATIVE REPORT ---
DATE OF SERVICE: 12/23/2022 PREOPERATIVE DIAGNOSIS: History of colon cancer. POSTOPERATIVE DIAGNOSIS: Ileorectal anastomosis mucosal change. PROCEDURE: Flexible sigmoidoscopy with snare biopsy. SURGEON: Keerthi Parks DO ANESTHESIA: Per DRILL OPERATOR PNEUMATIC. ESTIMATED BLOOD LOSS: Scant. COMPLICATIONS: None. INDICATIONS: The patient is an 82-year-old female with history of colon cancer. She understands risks and benefits of procedure and wished to proceed. She had subtotal colectomy with ileorectal anastomosis. She understands risks and benefits of procedure and wished to proceed. Consent was signed in chart. DESCRIPTION OF PROCEDURE: The patient was taken to the endoscopy suite, placed in left lateral recumbent position. Timeout was performed. Digital rectal exam was performed. No palpable polyps, masses or ulcerations. Scope was inserted into the rectum, into the first portion of the sigmoid where the anastomosis was visualized. Erythematous mucosal change circumferentially around the anastomosis. A slight stricture here. The scope was able to be passed through this area into the small bowel. Small bowel had normal appearance. Scope was slowly retracted back towards mucosal changes present. A snare was used to take a biopsy of this area under hot biopsy. Scope was then slowly retracted back noting no other pathology. Scope was inserted and retracted multiple times until completely removed, noting no other pathology. RECOMMENDATIONS: The patient will follow up on pathology in two weeks. The patient will need repeat endoscopy in one year to reevaluate this area. Job ID: [id number] DocumentID: [id number] Dictated Date: 12/23/2022 08:36:21 Trauma Doctor Date: 12/23/2022 15:24:00 Dictated By: KEERTHI PARKS DO
== END 2022-12-23 09:38 | disposition home or self-care (01) ==
LOC: ENDO 07:24
PROVIDERS: ATTEND Surgery
DX: Z12.11 Encounter for screening for malignant neoplasm of colon (principal); K91.89 Other postprocedural complications and disorders of digestive system; K63.89 Other specified diseases of intestine; E66.9 Obesity, unspecified; Z98.0 Intestinal bypass and anastomosis status; Z85.038 Personal history of other malignant neoplasm of large intestine; Z68.35 Body mass index [BMI] 35.0-35.9, adult; Z99.81 Dependence on supplemental oxygen; Z87.891 Personal history of nicotine dependence

== ENCOUNTER → 2022-12-23 | Outpatient (CLI) | payer MEDICARE ==
[2022-12-23 08:12] LABS: BASOPHILS % (AUTO) 1 % (0-10); EOSINOPHILS # (AUTO) 0.1 10^3/uL (0.0-0.3); EOSINOPHILS % (AUTO) 2 % (0-10); HEMATOCRIT 40 % (35-52); LYMPHOCYTES # (AUTO) 0.9 10^3/uL (1.0-4.0); LYMPHOCYTES % (AUTO) 16 % (12-44); MEAN CORPUSCULAR HEMOGLOBIN 27 pg (25-34); MEAN CORPUSCULAR HGB CONC 32 g/dL (32-36); MEAN CORPUSCULAR VOLUME 83 fL (80-99); MEAN PLATELET VOLUME 10.1 fL (9.0-12.2); MONOCYTES # (AUTO) 0.3 10^3/uL (0.0-1.0); MONOCYTES % (AUTO) 5 % (0-12); NEUTROPHILS # (AUTO) 4.5 10^3/uL (1.8-7.8); NEUTROPHILS % (AUTO) 76 % (42-75); PLATELET COUNT 214 10^3/uL (130-400); WHITE BLOOD COUNT 5.9 10^3/uL (4.3-11.0)
[2022-12-23 08:34] LABS: ALBUMIN 3.9 GM/DL (3.2-4.5); BILIRUBIN,TOTAL 0.4 MG/DL (0.1-1.0); CREATININE SERUM 0.72 MG/DL (0.60-1.30); POTASSIUM 4.3 MMOL/L (3.6-5.0); TOTAL PROTEIN 6.8 GM/DL (6.4-8.2)
== END ==
LOC: LAB 07:26
PROVIDERS: ATTEND Internal Medicine Hematology & Oncology
DX: Z85.038 Personal history of other malignant neoplasm of large intestine (principal)
CPT/HCPCS: 36415; 80053; 82378; 85025